=== PATIENT | female | born 1940 | race Caucasian/White ===

== ENCOUNTER 2018-01-10 15:09 | Emergency (ER) | payer MEDICARE, OTHER, SELFPAY ==
--- NOTE | 2018-01-10 15:13 | ED.HEATRA ---
HPI - Head Injury <ROXANA Vernon - Last Filed: 01/10/18 20:52> General Chief complaint: Head Injury Stated complaint: FELL AND HIT HER HEAD Time Seen by Provider: 01/10/18 15:12 History of Present Illness HPI Narrative: 77-year-old female currently taking Plavix and aspirin due to history of stroke. Here for complaint of up bumping her head during a ground level fall few hours prior to arrival. She states that she stumbled causing her to fall backwards hitting the back part of her head on the ground. She denies any loss of consciousness. She has no nausea or vomiting. She reports mild headache however she had mild headache prior to the fall with no changes after the fall. She denies any neck pain. She has full range of motion to the neck. She was able to ambulate into the emergency room. No other concerns or complaints. MD Complaint: head injury and fall Related Data Home Medications Medication Instructions Recorded Confirmed cyanocobalamin (vitamin B-12) 1,000 mcg IM EVERY 2 WEEK #0 08/13/10 01/10/18 omega 8-rmh-jus-fish oil [Fish Oil] 1,000 mg PO QDAY #0 02/20/13 01/10/18 atorvastatin [Lipitor] 20 mg PO HS #0 11/02/16 01/10/18 clopidogrel [Plavix] 75 mg PO QDAY #0 11/02/16 01/10/18 Co Q-10 1 cap PO DAILY 01/10/18 01/10/18 aspirin 81 mg PO DAILY 01/10/18 01/10/18 cholecalciferol (vitamin D3) 2,000 unit PO DAILY 01/10/18 01/10/18 [Vitamin D3] famotidine 20 mg PO BID 01/10/18 01/10/18 levothyroxine 1 tab PO MOWEFR 01/10/18 01/10/18 levothyroxine 1 tab PO SUTUTHSA 01/10/18 01/10/18 losartan 100 mg PO DAILY 01/10/18 01/10/18 multivitamin 1 tab PO DAILY 01/10/18 01/10/18 venlafaxine 1 cap PO DAILY 01/10/18 01/10/18 Previous Rx's Medication Instructions Recorded doxycycline monohydrate 100 mg PO BID #20 cap 01/17/17 Allergies Allergy/AdvReac Type Severity Reaction Status Date / Time Penicillins [PENICILLINS] Allergy Severe LESIONS IN Unverified 10/25/17 12:57 HER MOUTH ciprofloxacin [CIPROFLOXACIN] Allergy Intermediate tongue Unverified 10/25/17 12:57 inflammation wheat [WHEAT] Allergy Unknown ABD PAIN Unverified 10/25/17 12:57 Review of Systems <ROXANA Vernon - Last Filed: 01/10/18 20:52> Constitutional Denies chills, Denies fever(s), Denies lethargy and Denies weakness Eyes Denies change in vision, Denies eye discharge, Denies irritation and Denies loss of vision ENT Ears, Nose, Mouth, and Throat: Denies change in voice, Denies neck pain and Denies sore throat Cardiovascular Denies chest pain, Denies irregular heart rhythm, Denies lightheadedness, Denies palpitations, Denies dyspnea, Denies dyspnea on exertion and Denies orthopnea Respiratory Denies cough, Denies dyspnea, Denies dyspnea on exertion and Denies wheezing Gastrointestinal Gastrointestinal: Denies abdominal pain, Denies change in bowel habits, Denies diarrhea, Denies nausea and Denies vomiting Genitourinary Denies hematuria, Denies flank pain, Denies urinary incontinence and Denies urinary urgency Musculoskeletal Denies neck pain Integumentary/Breasts Denies pruritus, Denies erythema, Denies rash and Denies wounds Neurologic Denies confusion, Denies loss of vision and Denies weakness Comments: Hitting head during ground level fall Psychiatric Denies anxiety, Denies confusion, Denies depression, Denies homicidal ideation and Denies suicidal ideation Endocrine Denies palpitations Allergic/Immunologic Denies wheezing Exam <ROXANA Vernon - Last Filed: 01/10/18 20:52> Initial Vital Signs Initial Vital Signs: Vital Signs Temperature 97.4 F L 01/10/18 15:15 Pulse Rate 75 01/10/18 15:15 Respiratory Rate 16 01/10/18 15:15 Blood Pressure 138/85 H 01/10/18 15:15 Pulse Oximetry 96 01/10/18 15:15 Const General: cooperative and well developed Nutritional Appearance: well nourished Orientation: alert, awake, oriented x3 and not confused HENUT Head: normal to inspection, normocephalic, atraumatic, No Ramos's sign, No contusion, No hematoma, No laceration, No raccoon eyes, No scalp lesion and No scalp tenderness Ears: external ears normal Nose: external nose normal Mouth: oral mucosae normal, salivary ducts normal and moist mucous membranes Eyes Conjunctivae: conjunctivae normal Sclera: sclerae normal Pupils: PERRL EOM: EOM intact bilaterally Neck Neck: normal visual inspection, full ROM, trachea midline, No lymphadenopathy, No midline deformity and No JVD Lymphatic: No lymphedema Resp Effort & Inspection: normal respiratory effort, able to speak in complete sentences, no respiratory distress and no use of accessory muscles Auscultation: clear to auscultation bilaterally, no rales, no rhonchi and no wheezes Cardio Rate: regular rate Rhythm: regular rhythm Heart Sounds: no click, no gallops, no murmurs and no rubs Skin General: no rashes or lesions noted, No jaundice and No petechiae Neuro Cognition: normal cognition Speech: speech normal Motor: muscle tone normal throughout Sensory Exam: no sensory deficits noted <DO Phyllis Anne Last Filed: 01/13/18 08:37> Initial Vital Signs Initial Vital Signs: Vital Signs Temperature 97.4 F L 01/10/18 15:15 Pulse Rate 75 01/10/18 15:15 Respiratory Rate 16 01/10/18 15:15 Blood Pressure 138/85 H 01/10/18 15:15 Pulse Oximetry 96 01/10/18 15:15 Course <ROXANA Vernon - Last Filed: 01/10/18 20:52> Orders Ordered: ED Orders 01/10/18 15:28 CT head/brain wo con Stat Vital Signs - 8 hr 01/10/18 15:15 01/10/18 15:30 01/10/18 16:00 Temperature 97.4 F L Pulse Rate 75 72 70 Respiratory Rate 16 12 14 Blood Pressure 138/85 H Blood Pressure [Left Arm] 140/80 H 148/72 H Pulse Oximetry 96 99 98 <DO Phyllis Anne Last Filed: 01/13/18 08:37> Orders Ordered: ED Orders 01/10/18 15:28 CT head/brain wo con Stat Vital Signs - 8 hr 01/10/18 15:15 01/10/18 15:30 01/10/18 16:00 Temperature 97.4 F L Pulse Rate 75 72 70 Respiratory Rate 16 12 14 Blood Pressure 138/85 H Blood Pressure [Left Arm] 140/80 H 148/72 H Pulse Oximetry 96 99 98 [facility] [place] - Head Injury <Kishan GonzalezROXANA - Last Filed: 01/10/18 20:52> Imaging Data CT scan - head: Radiologist's impression: PROCEDURE: CT HEAD/BRAIN WO CON INDICATIONS: Ground level fall hitting back of head currently on Plavix TECHNIQUE: Noncontrast 4.5 mm thick angled axial sections acquired from the foramen magnum to the vertex, with coronal and sagittal reformats. For radiation dose reduction, the following was used: automated exposure control, adjustment of mA and/or kV according to patient size. COMPARISON: [facility], CT, HEAD WITHOUT CONTRAST, 11/04/2016, 22:08. FINDINGS: Image quality: Excellent. CSF spaces: Basal cisterns are patent. No extra-axial fluid collections. Ventricles are moderately prominent. There is corresponding parenchymal volume loss. Brain: No midline shift. No intracranial masses or hemorrhage. Vanegas-white matter interface is normal. Subtle areas of low attenuation within the periventricular and deep white matter of the supratentorial brain are present. Encephalomalacia involving the left basal ganglia is unchanged. Skull and face: Calvarium and visualized facial bones are intact, without suspicious lesions. Sinuses: Visualized sinuses and mastoids are clear. IMPRESSION: Stable head CT. No acute intracranial hemorrhage. Dictated by: Ricky Gomez M.D. on 01/10/2018 at 15:03 Approved by: Ricky Gomez M.D. on 01/10/2018 at 15:04 [facility] [place] Narrative Medical decision making narrative: Head CT was obtained was negative for any acute findings. No appreciable signs of trauma to the head on exam. Signs and symptoms presents as minor head injury. [id number] Tylenol as needed for any discomfort. Follow up with her primary care provider in the next couple days for re-evaluation. Head injury instructions are provided with warning signs return to the emergency room. If any worsening symptoms return to the emergency room. Discharge Plan Departure Patient Disposition: Home, Self-Care Clinical Impression: Closed head injury Discharge Date/Time: 01/10/18 16:37 Interventions: ED Discharge Assessment Last Done: 01/10/18 16:36 Instructions: DI for Closed Head Injury Activity Restrictions/Additional Instructions: Head CT was obtained was negative for any acute findings. No appreciable signs of trauma to the head on exam. Signs and symptoms presents as minor head injury. [id number] Tylenol as needed for any discomfort. Follow up with her primary care provider in the next couple days for re-evaluation. Head injury instructions are provided with warning signs return to the emergency room. If any worsening symptoms return to the emergency room. Prescriptions: No Action cyanocobalamin (vitamin B-12) 1,000 MCG/1 ML solution 1,000 mcg IM EVERY 2 WEEK Qty: 0 RF: 0 omega 3-kxd-cpt-fish oil [Fish Oil] 1,000 mg (120 mg-180 mg) Capsule 1,000 mg PO QDAY Qty: 0 RF: 0 atorvastatin [Lipitor] 20 MG tablet 20 mg PO HS Qty: 0 RF: 0 clopidogrel [Plavix] 75 MG tablet 75 mg PO QDAY Qty: 0 RF: 0 doxycycline monohydrate 100 MG capsule 100 mg PO BID Qty: 20 RF: 0 aspirin 81 mg Tablet,Delayed Release (Dr/Ec) 81 mg PO DAILY RF: 0 levothyroxine 88 mcg tablet 1 tab PO SUTUTHSA RF: 0 famotidine 20 mg tablet 20 mg PO BID RF: 0 Co Q-10 1 cap PO DAILY RF: 0 levothyroxine 100 mcg tablet 1 tab PO MOWEFR RF: 0 venlafaxine 37.5 mg capsule,extended release 24hr 1 cap PO DAILY RF: 0 losartan 100 mg tablet 100 mg PO DAILY RF: 0 cholecalciferol (vitamin D3) [Vitamin D3] 2,000 unit Tablet 2,000 unit PO DAILY RF: 0 multivitamin 1 tab PO DAILY RF: 0 Referrals: Conchita Felipe PA-C [Primary Care Provider] - <Dimitris Lackey DO - Last Filed: 01/13/18 08:37> Cosign ED Attending Cosignature Attestation: I was available for consultation during this patient's emergency department encounter
[2018-01-10 15:15] VITALS: BP 138/85; PULSE 75; RESP 16; TEMP 36.3; O2SAT 96; BMI 25.6
--- NOTE | 2018-01-10 15:28 | DI.CT.S_ITS ---
PROCEDURE: CT HEAD/BRAIN WO CON INDICATIONS: Ground level fall hitting back of head currently on Plavix TECHNIQUE: Noncontrast 4.5 mm thick angled axial sections acquired from the foramen magnum to the vertex, with coronal and sagittal reformats. For radiation dose reduction, the following was used: automated exposure control, adjustment of mA and/or kV according to patient size. COMPARISON: [facility], CT, HEAD WITHOUT CONTRAST, 11/04/2016, 22:08. FINDINGS: Image quality: Excellent. CSF spaces: Basal cisterns are patent. No extra-axial fluid collections. Ventricles are moderately prominent. There is corresponding parenchymal volume loss. Brain: No midline shift. No intracranial masses or hemorrhage. Vanegas-white matter interface is normal. Subtle areas of low attenuation within the periventricular and deep white matter of the supratentorial brain are present. Encephalomalacia involving the left basal ganglia is unchanged. Skull and face: Calvarium and visualized facial bones are intact, without suspicious lesions. Sinuses: Visualized sinuses and mastoids are clear. IMPRESSION: Stable head CT. No acute intracranial hemorrhage. Dictated by: Ricky Gomez M.D. on 01/10/2018 at 15:03 Approved by: Ricky Gomez M.D. on 01/10/2018 at 15:04
[2018-01-10 15:30] VITALS: BP 140/80; PULSE 72; RESP 12; O2SAT 99
[2018-01-10 16:00] VITALS: BP 148/72; PULSE 70; RESP 14; O2SAT 98
== END 2018-01-10 16:37 | disposition home or self-care (01) ==
PROVIDERS: Emergency Provider Nurse Practitioner Family; Family Provider Physician Assistant; PCP Physician Assistant
DX: S09.90XA Unspecified injury of head, initial encounter (principal); W19.XXXA Unspecified fall, initial encounter
CPT/HCPCS: 70450; 99282; 99284

== ENCOUNTER → 2018-01-31 09:16 | Outpatient (CLI) | payer MEDICARE, OTHER, SELFPAY ==
--- NOTE | 2018-01-31 | OV.WND_ITS ---
Progress Note Details Patient Name: Tenisha Mejia Patient Number: [id number] PatientPatientDate: 01/31/2018 Clinician: Lupe French Physician / Dedicated Regional Driver: Reji Rodney SUBJECTIVE Chief Complaint This information was obtained from the patient Allergies penicillin, Cipro HPI This information was obtained from the patient 01/31/18. Seen by Dr. Rodney. The patient's new to our clinic and presents with a non-healing right scalp wound that resulted following a brain biopsy. The overlying bone according to the patient's failed to heal and hardware was subsequently removed. The 's been caring for the wound the past few months and notes there's been some dried drainage accumulating over the wound surface which he's removed. He also stopped applying topical antibiotic a few weeks ago. The patient reports some mild intermittent pain at the site but no other acute issues today. 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 Past Medical History This information was obtained from the patient Patient has a medical history of: CVA Complaints and Symptoms This information was obtained from the patient Patient complains of: General Notes: I have reviewed and concur with the Review of Systems and Past Family Social History documents completed by the clinician, I have reviewed and concur with the Wound Assessment document completed by the clinician Hematologic/Lymphatic: Bleeding Tendency Integumentary (Hair/Skin/Nails): Open Sore Prior Wound History: Drainage, Pain Patient denies complaints or symptoms related to: Constitutional Symptoms (General Health): Chills, Fever Ear/Nose/Mouth/Throat: Hearing Loss / Aid Hematologic/Lymphatic: Bleeding / Clotting Disorders Neurological: Loss of Protective Sensation Respiratory: Shortness of Breath General Notes: Up to date per patient Medications atorvastatin 20 mg tablet oral tablet oral once daily losartan 50 mg tablet oral 1.5 1.5 tablet oral once daily Aspir-81 81 mg tablet,delayed release oral tablet,delayed release (DR/EC) oral Plavix 75 mg tablet oral tablet oral once daily Levoxyl 88 mcg tablet oral tablet oral cyanocobalamin (vit B-12) 1,000 mcg/mL injection solution injection solution injection Vitamin D3 1,000 unit tablet oral tablet oral once daily OBJECTIVE Constitutional BP elevated; Low grade fever; Alert and in no distress. Well developed. Alert. Clean appearing.. Height/Length: 62 in (157.48 cm), Weight: 145 lbs (65.91 kgs), BMI: 26.5, Temperature: 99 ?F (37.22 ?C), Pulse: 74 bpm, Respiratory Rate: 16 breaths/min, Blood Pressure: 158/79 mmHg, Pulse Oximetry: 95 %. Ears, Nose, Mouth, and Throat: No clinically significant hearing loss on informal examination. Respiratory: No respiratory distress. Even respirations and without use of accessory muscles.. Integumentary (Hair, Skin) Mild periwound erythema without warmth. Refer to appropriate clinician wound documentation for this visit; right scalp wound extends to subcut with base covered with red, friable hypergranulation; approx 3x10mm dry, hard bone exposed. Wound #1 Right Head is a chronic Partial Thickness Atypical and has received a status of Not Healed. Initial wound encounter measurements are 0.6cm length x 0.6cm width x 0.1cm depth, with an area of 0.36 sq cm and a volume of 0.036 cubic cm. Bone is exposed. No tunneling has been noted. No sinus tract has been noted. No undermining has been noted. There is a moderate amount of sero-sanguineous drainage noted which has no odor. The patient reports a wound pain of level 0/10. The wound margin is attached. Wound bed has No epithelialization, No eschar, Yes slough, No granulation. The periwound skin texture is normal. The periwound skin moisture is normal. The periwound skin color is normal. The temperature of the periwound skin is WNL. Periwound skin does not exhibit signs or symptoms of infection. Local Pulse is N/A. Neurological: Cranial nerves grossly intact with symmetric function normal by informal observation.. ASSESSMENT Active Problems ICD-10 (Encounter Diagnosis) S01.00XD - Unspecified open wound of scalp, subsequent encounter (Encounter Diagnosis) L08.9 - Local infection of the skin and subcutaneous tissue, unspecified PROCEDURES Wound #1 Wound #1 (Atypical) is located on the right head. A skin/subcutaneous tissue level surgical debridement with a total area debrided of 0.36 sq cm was performed by Reji Rodney MD. Subcutaneous was removed along with devitalized tissue: exudate. The following instrument (s) were used: forceps. Pain control was achieved using EMLA lidocaine/ prilocaine 2.5%/2.5%. A time out was conducted prior to the start of the procedure. A minimal amount of bleeding was controlled with n/a. The procedure was tolerated well with a pain level of 0 throughout and a pain level of 0 following the procedure. Post Debridement Measurements: 0.6cm length x 0.6cm width x 0.2cm depth; with an area of 0.36 sq cm and a volume of 0.072 cubic cm; Additional Information Muscle fascia or bone removed and sent to pathology?: No PLAN Wound Orders: Wound #1 Right Head Anesthetic Topical Xylocaine to wound bed. Cleanser Cleanse Wound: - Normal Saline in clinic. May use distilled water at home. Dressings Primary dressing: - Duoderm Change Dressing: - Every two days Additional Orders: Follow-Up Appointments Return Appointment: - - One week. Other information: If you develop fever, chills, increased pain, drainage, redness or swelling please call our office. If after hours, respond to the ER. Should you experience any significant changes in your wound(s) or have any questions regarding your home care instructions please contact the wound center @ [phone]. If after hours, contact your primary care physician or go to the hospital emergency room. Scribing Attestation I attest, as the nurse, that I scribed these orders for the physician. Laboratory: Culture Wound General Notes: We will call with any positive wound cultures requiring oral antibiotics. I've reviewed the clinician's documentation and agree with the evaluation and plan as written. Also, I've cultured the scalp wound which appears to have a superficial infection but will defer treating with antibiotics until the culture results are available. I've also discussed the exposed bone and how this complicates wound healing considerably. I'm going to refer the patient back to her surgeon for review of this issue noting it's very unlikely the wound will heal with bone exposed as it is today. Electronic Signature(s) Signed By: Date: Reji Rodney MD 02/01/2018 07:19:13 Entered By: Reji Rodney on 01/31/2018 13:36:54
== END ==
PROVIDERS: Family Provider Physician Assistant; PCP Physician Assistant; Visit Provider Internal Medicine
DX: S01.00XA Unspecified open wound of scalp, initial encounter (principal)
CPT/HCPCS: 11042; 87070; 87075; 87077; 87147; 87186; 87205; 99213

== ENCOUNTER → 2018-02-07 09:08 | Outpatient (CLI) | payer MEDICARE, OTHER, SELFPAY | PROVIDERS: Family Provider Physician Assistant; PCP Physician Assistant; Visit Provider Internal Medicine | DX: S01.00XD Unspecified open wound of scalp, subsequent encounter (principal); L08.9 Local infection of the skin and subcutaneous tissue, unspecified | CPT/HCPCS: 99212 ==

== ENCOUNTER → 2018-02-21 13:48 | Outpatient (CLI) | payer MEDICARE, OTHER, SELFPAY ==
--- NOTE | 2018-02-21 | OV.WND_ITS ---
Progress Note Details Patient Name: Tenisha Mejia Patient Number: [id number] PatientPatientDate: 02/21/2018 Clinician: Lupe French Physician / Windows Laptop Technician: Reji Rodney SUBJECTIVE Chief Complaint This information was obtained from the patient Non-healing scalp wound Allergies penicillin, Cipro HPI This information was obtained from the patient 02/21/18. Seen by Dr. Rodney. The patient does not report significant drainage associated with the scalp wound since her last visit. She also has an appointment on 03/03 with her surgeon to review the exposed bone which is inhibiting closure of the wound. 02/07/18. Seen by Dr. Rodney. The patient's wound culture from the chronic, non- healing scalp wound grew munoz-sensitive Staph capitis and she's not yet connected with her surgeon to discuss the exposed bone that was described in my previous note. She's not currently on antibiotics and does not report pain or increasing drainage associated with the wound. 01/31/18. Seen by Dr. Rodney. The patient's new to our clinic and presents with a non-healing right scalp wound that resulted following a brain biopsy. The overlying bone according to the patient's failed to heal and hardware was subsequently removed. The 's been caring for the wound the past few months and notes there's been some dried drainage accumulating over the wound surface which he's removed. He also stopped applying topical antibiotic a few weeks ago. The patient reports some mild intermittent pain at the site but no other acute issues today. Past Medical History This information was obtained from the patient Patient has a medical history of: CVA Complaints and Symptoms This information was obtained from the patient Patient complains of: General Notes: I have reviewed and concur with the Review of Systems and Past Family Social History documents completed by the clinician, I have reviewed and concur with the Wound Assessment document completed by the clinician Hematologic/Lymphatic: Bleeding Tendency Integumentary (Hair/Skin/Nails): Open Sore Prior Wound History: Drainage, Pain Patient denies complaints or symptoms related to: Constitutional Symptoms (General Health): Chills, Fever Ear/Nose/Mouth/Throat: Hearing Loss / Aid Hematologic/Lymphatic: Bleeding / Clotting Disorders Neurological: Loss of Protective Sensation Respiratory: Shortness of Breath OBJECTIVE Constitutional BP normal; Low grade fever; Alert and in no distress. Well developed. Alert. Clean appearing.. Height/Length: 62 in (157.48 cm), Weight: 149 lbs (67.73 kgs), BMI: 27.2, Temperature: 99.3 ?F (37.39 ?C), Pulse: 83 bpm, Respiratory Rate: 18 breaths/min, Blood Pressure: 131/77 mmHg, Pulse Oximetry: 95 %. Ears, Nose, Mouth, and Throat: No clinically significant hearing loss on informal examination. Integumentary (Hair, Skin) No periwound erythema, warmth, or significant drainage. No periwound rashes appreciated or noted otherwise.. Refer to appropriate clinician wound documentation for this visit; wound essentially closed except for area of exposed bone. Wound #1 Right Head is a chronic Full Thickness Atypical and has received a status of Not Healed. Subsequent wound encounter measurements are 0.5cm length x 0.3cm width x 0.1cm depth, with an area of 0.15 sq cm and a volume of 0.015 cubic cm. Bone is exposed. No tunneling has been noted. No sinus tract has been noted. No undermining has been noted. There is a small amount of serous drainage noted which has no odor. The patient reports a wound pain of level 0/10. The wound margin is attached. Wound bed has Yes epithelialization, No eschar, No slough, No granulation. The periwound skin texture is normal. The periwound skin moisture is normal. The periwound skin color is normal. The temperature of the periwound skin is WNL. Periwound skin does not exhibit signs or symptoms of infection. Local Pulse is N/A. ASSESSMENT Active Problems ICD-10 (Encounter Diagnosis) S01.00XD - Unspecified open wound of scalp, subsequent encounter PLAN Wound Orders: Wound #1 Right Head Anesthetic Topical Xylocaine to wound bed. Cleanser Cleanse Wound: - Normal Saline in clinic. May use distilled water at home. Topical Treatments Antibiotic/Antimicrobial Ointment/Cream. - Triple antibiotic ointment. Dressings Cover and secure with: - Thin duoderm. Change Dressing: - Every two days. Follow-Up Appointments Other information: If you develop fever, chills, increased pain, drainage, redness or swelling please call our office. If after hours, respond to the ER. Should you experience any significant changes in your wound(s) or have any questions regarding your home care instructions please contact the wound center @ [phone]. If after hours, contact your primary care physician or go to the hospital emergency room. Discharge from Outpatient Services. - No need to follow up at this time. Appointment scheduled at [facility] with plastics, the week of March 05-. Scribing Attestation I attest, as the nurse, that I scribed these orders for the physician. I've reviewed the clinician's documentation and agree with the evaluation and plan as written. Electronic Signature(s) Signed By: Date: Reji Rodney MD 02/22/2018 09:16:50 Entered By: Reji Rodney on 02/21/2018 10:17:35
== END ==
PROVIDERS: Family Provider Physician Assistant; PCP Physician Assistant; Visit Provider Internal Medicine
DX: S01.00XA Unspecified open wound of scalp, initial encounter (principal)
CPT/HCPCS: 99212

== ENCOUNTER → 2018-03-01 11:20 | Outpatient (REF) | payer MEDICARE, OTHER, SELFPAY ==
[2018-03-01 11:41] LABS: INR 1.1 (0.9-1.3); Prothrombin Time 12.5 SECONDS (10.1-12.7)
[2018-03-01 11:42] LABS: Add Manual Diff / Slide Review NO; Basophils Percent Auto 1.3 % (0-2); Eosinophils Percent Auto 3.4 % (2-4); Hemoglobin 13.1 g/dL (12.0-16.0); Lymphocytes Percent Auto 17.9 % (25-40); Mean Corpuscular HGB Conc 33.5 % (30-36); Mean Corpuscular Hemoglobin 28.3 PG (26-34); Mean Corpuscular Volume 84.3 fL (80-100); Monocytes Percent Auto 7.4 % (3-14); Neutrophils Absolute Auto 4800 /uL (3000-5900); Platelet Count 607 X10^3/uL (150-400); Red Blood Cell Count 4.62 X10^6/uL (4.0-5.2); Red Cell Distribution Width 15.9 % (11.6-14.8); White Blood Cell Count 6.9 X10^3/uL (4.5-11.0)
[2018-03-01 11:44] LABS: PTT Partial Thromboplastin Tim 26 SECONDS (26.4-36.2)
[2018-03-01 12:00] LABS: Alanine Aminotransferase 40 IU/L (9-52); Albumin Globulin Ratio 1.2 (1.0-2.8); Alkaline Phosphatase 139 U/L (38-126); Aspartate Aminotransferase 39 IU/L (14-36); BUN Creatinine Ratio 24.3 (6-22); Bilirubin Total 0.7 mg/dL (0.2-1.3); Blood Urea Nitrogen 17 mg/dL (7-17); Calcium 9.3 mg/dL (8.4-10.2); Carbon Dioxide 28 mmol/L (22-32); Chloride 102 mmol/L (98-107); Estimated Glomerular Filt Rate > 60.0 mL/min (>60); Globulin 3.4 g/dL (1.7-4.1); Glucose 91 mg/dL (80-110); HEMOLYSIS < 15 (0-50); Potassium 4.4 mmol/L (3.4-5.1); Sodium 142 mmol/L (137-145); Total Protein 7.4 g/dL (6.3-8.2)
[2018-03-01 12:05] LABS: Hemoglobin A1C% w Est Avg Glu 5.8 % (4.0-6.0)
== END ==
LOC: LAB 11:20
PROVIDERS: Family Provider Physician Assistant; PCP Physician Assistant; Visit Provider Physician Assistant
DX: T81.89XA Other complications of procedures, not elsewhere classified, initial encounter (principal); Z01.818 Encounter for other preprocedural examination
CPT/HCPCS: 80053; 83036; 85025; 85610; 85730; 87070; 87075; 87147; 87205; 87797

== ENCOUNTER → 2018-03-06 14:52 | Outpatient (CLI) | payer MEDICARE, OTHER, SELFPAY | PROVIDERS: Family Provider Physician Assistant; PCP Physician Assistant; Visit Provider Physician Assistant | DX: M85.831 Other specified disorders of bone density and structure, right forearm (principal); Z78.0 Asymptomatic menopausal state; E07.9 Disorder of thyroid, unspecified; Z85.3 Personal history of malignant neoplasm of breast; Z82.62 Family history of osteoporosis; Z87.891 Personal history of nicotine dependence | CPT/HCPCS: 77080 ==

== ENCOUNTER → 2018-03-23 15:43 | Outpatient (CLI) | payer MEDICARE, OTHER, SELFPAY ==
[2018-03-23 16:54] LABS: Bacteria Urine None Seen
[2018-03-23 18:12] LABS: Appearance Urine UA CLEAR; Bilirubin Urine UA 1+ (NEGATIVE); Color Urine UA ORANGE; Glucose Urine UA 1+ g/dL (Normal); Ketones Urine UA TRACE (NEGATIVE); Leukocyte Esterase Urine UA TRACE (NEGATIVE); Nitrite Urine UA POSITIVE (Negative); Occult Blood Urine UA 3+ (Negative); Protein Urine UA 2+ (Negative); Urobilinogen Urine UA >=8.0 E.U./dL (0.2)
[2018-03-23 18:13] LABS: RBC Urine 5-10/HPF (0-5/HPF); WBC Urine 5-10/HPF (0-5/HPF)
[2018-03-23 18:14] LABS: Culture Indicated Urine Specimen Cultured
[2018-03-23 18:24] LABS: Ictotest Urine Positive (Negative)
== END ==
PROVIDERS: Family Provider Physician Assistant; PCP Physician Assistant; Visit Provider Physician Assistant
DX: N39.0 Urinary tract infection, site not specified (principal)
CPT/HCPCS: 81001; 87086

== ENCOUNTER → 2018-03-26 11:12 | Outpatient (CLI) | payer MEDICARE, OTHER, SELFPAY ==
--- NOTE | 2018-03-26 | OV.WND_ITS ---
Progress Note Details Patient Name: Tenisha Mejia Patient Number: [id number] PatientPatientDate: 03/26/2018 Clinician: Lupe French Clinician Cosigner: Alyssa Weston Physician / Disaster Or Damage Control Specialist: Reji Rodney SUBJECTIVE Chief Complaint This information was obtained from the patient Non-healing scalp wound Allergies penicillin, Cipro HPI This information was obtained from the patient 03/26/18. Seen by Dr. Rodney. The patient returns to clinic after being seen by her surgeon who removed hardware and reconstructed the overlying scalp to close the previously documented and chronically non-healing scalp surgical wound. Her procedure was 2 weeks ago and reportedly the surgeon's given the approval for sutures to be removed at our clinic. The patient does not report pain at the site nor significant drainage and only applied topical antibiotic for a few days due to accumulation of ointment along the sutures and her hair. 02/21/18. Seen by Dr. Rodney. The patient does not report significant drainage associated with the scalp wound since her last visit. She also has an appointment on 03/03 with her surgeon to review the exposed bone which is inhibiting closure of the wound. 02/07/18. Seen by Dr. Rodney. The patient's wound culture from the chronic, non- healing scalp wound grew munoz-sensitive Staph capitis and she's not yet connected with her surgeon to discuss the exposed bone that was described in my previous note. She's not currently on antibiotics and does not report pain or increasing drainage associated with the wound. 01/31/18. Seen by Dr. Rodney. The patient's new to our clinic and presents with a non-healing right scalp wound that resulted following a brain biopsy. The overlying bone according to the patient's failed to heal and hardware was subsequently removed. The 's been caring for the wound the past few months and notes there's been some dried drainage accumulating over the wound surface which he's removed. He also stopped applying topical antibiotic a few weeks ago. The patient reports some mild intermittent pain at the site but no other acute issues today. Past Medical History This information was obtained from the patient Patient has a medical history of: CVA Complaints and Symptoms This information was obtained from the patient Patient complains of: General Notes: I have reviewed and concur with the Review of Systems and Past Family Social History documents completed by the clinician, I have reviewed and concur with the Wound Assessment document completed by the clinician Hematologic/Lymphatic: Bleeding Tendency Integumentary (Hair/Skin/Nails): Open Sore Prior Wound History: Drainage, Pain Patient denies complaints or symptoms related to: Constitutional Symptoms (General Health): Chills, Fever Ear/Nose/Mouth/Throat: Hearing Loss / Aid Hematologic/Lymphatic: Bleeding / Clotting Disorders Neurological: Loss of Protective Sensation Respiratory: Shortness of Breath OBJECTIVE Constitutional Vital signs reviewed and noted. Well developed. Alert. Clean appearing.. Height/ Length: 62 in (157.48 cm), Weight: 147 lbs (66.82 kgs), BMI: 26.9, Temperature: 98.3 ?F ( 36.83 ?C), Pulse: 80 bpm, Respiratory Rate: 18 breaths/min, Blood Pressure: 133/82 mmHg, Pulse Oximetry: 94 %. Ears, Nose, Mouth, and Throat: No clinically significant hearing loss on informal examination. Respiratory: No respiratory distress. Even respirations and without use of accessory muscles.. Neurological: Cranial nerves grossly intact with symmetric function normal by informal observation.. Integumentary (Hair, Skin) Wound #1 Right Head is a chronic Full Thickness Atypical and has received a status of Not Healed. Subsequent wound encounter measurements are 0cm length x 0cm width with no measurable depth, with an area of 0 sq cm . Bone is exposed. No tunneling has been noted. No sinus tract has been noted. No undermining has been noted. There was no drainage noted. The patient reports a wound pain of level 0/10. The wound margin is attached. Wound bed has Yes epithelialization, No eschar, No slough, No granulation. The periwound skin texture is normal. The periwound skin moisture is normal. The periwound skin color is normal. The temperature of the periwound skin is WNL. Periwound skin does not exhibit signs or symptoms of infection. Local Pulse is N/A. General Notes: Surgical incision. Sutures in place. ASSESSMENT Active Problems ICD-10 (Encounter Diagnosis) S01.00XD - Unspecified open wound of scalp, subsequent encounter PLAN Wound Orders: Wound #1 Right Head Anesthetic Topical Xylocaine to wound bed. Cleanser Cleanse Wound: May Shower. Topical Treatments Antibiotic/Antimicrobial Ointment/Cream. - [place] gel to incision line Follow-Up Appointments Return Appointment: - - Other information: If you develop fever, chills, increased pain, drainage, redness or swelling please call our office. If after hours, respond to the ER. Should you experience any significant changes in your wound(s) or have any questions regarding your home care instructions please contact the wound center @ [phone]. If after hours, contact your primary care physician or go to the hospital emergency room. Scribing Attestation I attest, as the nurse, that I scribed these orders for the physician. I've reviewed the clinician's documentation and agree with the evaluation and plan as written. Also, we'll attempt to hydrate the adherent drainage and debris overlying the sutures in order to facilitate removal at her next visit this week. Electronic Signature(s) Signed By: Date: Reji Rodney MD 03/27/2018 09:56:44 Entered By: Reji Rodney on 03/27/2018 09:10:57
== END ==
PROVIDERS: Family Provider Physician Assistant; PCP Physician Assistant; Visit Provider Internal Medicine
DX: T81.89XD Other complications of procedures, not elsewhere classified, subsequent encounter (principal); S01.00XD Unspecified open wound of scalp, subsequent encounter
CPT/HCPCS: 99212

== ENCOUNTER → 2018-03-29 08:59 | Outpatient (CLI) | payer MEDICARE, OTHER, SELFPAY ==
--- NOTE | 2018-03-29 | OV.WND_ITS ---
Progress Note Details Patient Name: Tenisha Mejia Patient Number: [id number] PatientPatientDate: 03/29/2018 Clinician: Anupama Grewal Clinician Cosigner: Alyssa Weston Physician / Knotting Machine Operator: Reji Rodney SUBJECTIVE Chief Complaint This information was obtained from the patient Non-healing scalp wound Allergies penicillin, Cipro HPI This information was obtained from the patient 03/29/18. Seen by Dr. Rodney. The patient does not report significant drainage associated with the scalp surgical wound since her last visit and her 's been applying topical hydrogel as recommended to help soften the overlying dried drainage in order to facilitate removal of the sutures. 03/26/18. Seen by Dr. Rodney. The patient returns to clinic after being seen by her surgeon who removed hardware and reconstructed the overlying scalp to close the previously documented and chronically non-healing scalp surgical wound. Her procedure was 2 weeks ago and reportedly the surgeon's given the approval for sutures to be removed at our clinic. The patient does not report pain at the site nor significant drainage and only applied topical antibiotic for a few days due to accumulation of ointment along the sutures and her hair. 02/21/18. Seen by Dr. Rodney. The patient does not report significant drainage associated with the scalp wound since her last visit. She also has an appointment on 03/03 with her surgeon to review the exposed bone which is inhibiting closure of the wound. 02/07/18. Seen by Dr. Rodney. The patient's wound culture from the chronic, non- healing scalp wound grew munoz-sensitive Staph capitis and she's not yet connected with her surgeon to discuss the exposed bone that was described in my previous note. She's not currently on antibiotics and does not report pain or increasing drainage associated with the wound. 01/31/18. Seen by Dr. Rodney. The patient's new to our clinic and presents with a non-healing right scalp wound that resulted following a brain biopsy. The overlying bone according to the patient's failed to heal and hardware was subsequently removed. The 's been caring for the wound the past few months and notes there's been some dried drainage accumulating over the wound surface which he's removed. He also stopped applying topical antibiotic a few weeks ago. The patient reports some mild intermittent pain at the site but no other acute issues today. Past Medical History This information was obtained from the patient Patient has a medical history of: CVA Complaints and Symptoms This information was obtained from the patient Patient complains of: General Notes: I have reviewed and concur with the Review of Systems and Past Family Social History documents completed by the clinician, I have reviewed and concur with the Wound Assessment document completed by the clinician Hematologic/Lymphatic: Bleeding Tendency Integumentary (Hair/Skin/Nails): Open Sore Prior Wound History: Drainage, Pain Patient denies complaints or symptoms related to: Constitutional Symptoms (General Health): Chills, Fever Ear/Nose/Mouth/Throat: Hearing Loss / Aid Hematologic/Lymphatic: Bleeding / Clotting Disorders Neurological: Loss of Protective Sensation Respiratory: Shortness of Breath OBJECTIVE Constitutional Vital signs reviewed and noted. Well developed. Alert. Clean appearing.. Height/ Length: 62 in (157.48 cm), Weight: 147 lbs (66.82 kgs), BMI: 26.9, Temperature: 98.9 ?F ( 37.17 ?C), Pulse: 78 bpm, Respiratory Rate: 18 breaths/min, Blood Pressure: 130/74 mmHg, Pulse Oximetry: 95 %. Ears, Nose, Mouth, and Throat: No clinically significant hearing loss on informal examination. Respiratory: No respiratory distress. Even respirations and without use of accessory muscles.. Integumentary (Hair, Skin) No periwound erythema, warmth, or significant drainage. No periwound rashes appreciated or noted otherwise.. Refer to appropriate clinician wound documentation for this visit; scalp wound edges well apposed; sutures removed along 2 out of 3 wound margins; remaining sutures unable to be removed due to heavy, dried drainage. Wound #1 Right Head is a chronic Full Thickness Atypical and has received a status of Not Healed. Subsequent wound encounter measurements are 0cm length x 0cm width with no measurable depth, with an area of 0 sq cm . Bone is exposed. No tunneling has been noted. No sinus tract has been noted. No undermining has been noted. There was no drainage noted. The patient reports a wound pain of level 0/10. The wound margin is attached. Wound bed has Yes epithelialization, No eschar, No slough, No granulation. The periwound skin texture is normal. The periwound skin moisture is normal. The periwound skin color is normal. The temperature of the periwound skin is WNL. Periwound skin does not exhibit signs or symptoms of infection. Local Pulse is N/A. General Notes: Surgical incision, sutures in place with dry drainage. Dr. Rodney will remove the sutures today. Neurological: Cranial nerves grossly intact with symmetric function normal by informal observation.. ASSESSMENT Active Problems ICD-10 (Encounter Diagnosis) S01.00XD - Unspecified open wound of scalp, subsequent encounter PROCEDURES Wound #1 Wound #1 (Atypical) is located on the right head. A Removing Sutures procedure was performed by Reji Rodney MD. General Notes: Dr. Rodney removed sutures. PLAN Wound Orders: Wound #1 Right Head Anesthetic Topical Xylocaine to wound bed. Cleanser Cleanse Wound: May Shower. Topical Treatments Antibiotic/Antimicrobial Ointment/Cream. - [place] gel to incision line Follow-Up Appointments Return Appointment: - - This Monday03/30/18 for continued suture removal. Other information: If you develop fever, chills, increased pain, drainage, redness or swelling please call our office. If after hours, respond to the ER. Should you experience any significant changes in your wound(s) or have any questions regarding your home care instructions please contact the wound center @ [phone]. If after hours, contact your primary care physician or go to the hospital emergency room. Scribing Attestation I attest, as the nurse, that I scribed these orders for the physician. I've reviewed the clinician's documentation and agree with the evaluation and plan as written. The patient will soak the remaining sutures in hydrogel and we'll attempt to remove them again tomorrow. Electronic Signature(s) Signed By: Date: Reji Rodney MD 03/30/2018 06:00:06 03/29/2018 10:50:26 AM Version Signed Date: By: Anupama Grewal 03/29/2018 12:59:18 PM Entered By: Reji Rodney on 03/30/2018 05:57:23
== END ==
PROVIDERS: Family Provider Physician Assistant; PCP Physician Assistant; Visit Provider Internal Medicine
DX: S01.00XD Unspecified open wound of scalp, subsequent encounter (principal); Z48.02 Encounter for removal of sutures
CPT/HCPCS: 99211

== ENCOUNTER → 2018-03-30 11:27 | Outpatient (CLI) | payer MEDICARE, OTHER, SELFPAY ==
--- NOTE | 2018-03-30 | OV.WND_ITS ---
Progress Note Details Patient Name: Tenisha Mejia Patient Number: [id number] PatientPatientDate: 03/30/2018 Clinician: Lupe French Clinician Cosigner: Anupama Grewal Physician / Law Professor: Reji Rodney SUBJECTIVE Chief Complaint This information was obtained from the patient Non-healing scalp wound Allergies penicillin, Cipro HPI This information was obtained from the patient 03/30/18. Seen by Dr. Rodney. The patient returns to clinic for removal of the remainder of her scalp sutures that were not able to be removed yesterday due to adherence of overlying, heavy dried drainage. She's been applying hydrogel as recommended so help facilitate removal of the sutures. 03/29/18. Seen by Dr. Rodney. The patient does not report significant drainage associated with the scalp surgical wound since her last visit and her 's been applying topical hydrogel as recommended to help soften the overlying dried drainage in order to facilitate removal of the sutures. 03/26/18. Seen by Dr. Rodney. The patient returns to clinic after being seen by her surgeon who removed hardware and reconstructed the overlying scalp to close the previously documented and chronically non-healing scalp surgical wound. Her procedure was 2 weeks ago and reportedly the surgeon's given the approval for sutures to be removed at our clinic. The patient does not report pain at the site nor significant drainage and only applied topical antibiotic for a few days due to accumulation of ointment along the sutures and her hair. 02/21/18. Seen by Dr. Rodney. The patient does not report significant drainage associated with the scalp wound since her last visit. She also has an appointment on 03/03 with her surgeon to review the exposed bone which is inhibiting closure of the wound. 02/07/18. Seen by Dr. Rodney. The patient's wound culture from the chronic, non- healing scalp wound grew munoz-sensitive Staph capitis and she's not yet connected with her surgeon to discuss the exposed bone that was described in my previous note. She's not currently on antibiotics and does not report pain or increasing drainage associated with the wound. 01/31/18. Seen by Dr. Rodney. The patient's new to our clinic and presents with a non-healing right scalp wound that resulted following a brain biopsy. The overlying bone according to the patient's failed to heal and hardware was subsequently removed. The 's been caring for the wound the past few months and notes there's been some dried drainage accumulating over the wound surface which he's removed. He also stopped applying topical antibiotic a few weeks ago. The patient reports some mild intermittent pain at the site but no other acute issues today. Past Medical History This information was obtained from the patient Patient has a medical history of: CVA Complaints and Symptoms This information was obtained from the patient Patient complains of: General Notes: I have reviewed and concur with the Review of Systems and Past Family Social History documents completed by the clinician, I have reviewed and concur with the Wound Assessment document completed by the clinician Hematologic/Lymphatic: Bleeding Tendency Integumentary (Hair/Skin/Nails): Open Sore Prior Wound History: Drainage, Pain Patient denies complaints or symptoms related to: Constitutional Symptoms (General Health): Chills, Fever Ear/Nose/Mouth/Throat: Hearing Loss / Aid Hematologic/Lymphatic: Bleeding / Clotting Disorders Neurological: Loss of Protective Sensation Respiratory: Shortness of Breath OBJECTIVE Constitutional Vital signs reviewed and noted. Well developed. Alert. Clean appearing.. Height/ Length: 62 in (157.48 cm), Weight: 147 lbs (66.82 kgs), BMI: 26.9, Temperature: 97.9 ?F ( 36.61 ?C), Pulse: 76 bpm, Respiratory Rate: 18 breaths/min, Blood Pressure: 123/80 mmHg, Pulse Oximetry: 97 %. Respiratory: No respiratory distress. Even respirations and without use of accessory muscles.. Integumentary (Hair, Skin) Refer to appropriate clinician wound documentation for this visit. Remaining sutures removed from scalp wound with all wound edges well apposed and healed. Wound #1 Right Head is a chronic Full Thickness Atypical and has received an outcome of Healed - no new wound(s). Subsequent wound encounter measurements are 0cm length x 0cm width with no measurable depth, with an area of 0 sq cm . Bone is exposed. No tunneling has been noted. No sinus tract has been noted. No undermining has been noted. There was no drainage noted. The patient reports a wound pain of level 0/10. The wound margin is attached. Wound bed has Yes epithelialization, No eschar, No slough, No granulation. The periwound skin texture is normal. The periwound skin moisture is normal. The periwound skin color is normal. The temperature of the periwound skin is WNL. Periwound skin does not exhibit signs or symptoms of infection. Local Pulse is N/A. Neurological: Cranial nerves grossly intact with symmetric function normal by informal observation.. ASSESSMENT Active Problems ICD-10 (Encounter Diagnosis) S01.00XD - Unspecified open wound of scalp, subsequent encounter PROCEDURES Wound #1 Wound #1 (Atypical) is located on the right head. A Removing Sutures procedure was performed by Reji Rodney MD. PLAN Wound Orders: Wound #1 Right Head Cleanser Cleanse Wound: - Normal saline in clinic. may use distilled water at home. May Shower. Additional Orders: Follow-Up Appointments Other information: If you develop fever, chills, increased pain, drainage, redness or swelling please call our office. If after hours, respond to the ER. Should you experience any significant changes in your wound(s) or have any questions regarding your home care instructions please contact the wound center @ [phone]. If after hours, contact your primary care physician or go to the hospital emergency room. Discharge from Outpatient Services. Scribing Attestation I attest, as the nurse, that I scribed these orders for the physician. I've reviewed the clinician's documentation and agree with the evaluation and plan as written. Electronic Signature(s) Signed By: Date: Reji Rodney MD 04/01/2018 13:56:08 Entered By: Reji Rodney on 04/01/2018 13:42:26
== END ==
PROVIDERS: Family Provider Physician Assistant; PCP Physician Assistant; Visit Provider Internal Medicine
DX: Z48.02 Encounter for removal of sutures (principal); Z48.817 Encounter for surgical aftercare following surgery on the skin and subcutaneous tissue
CPT/HCPCS: 99212

== ENCOUNTER → 2018-04-18 14:33 | Outpatient (CLI) | payer MEDICARE, OTHER, SELFPAY | PROVIDERS: Family Provider Physician Assistant; PCP Physician Assistant; Visit Provider Internal Medicine | DX: S01.00XD Unspecified open wound of scalp, subsequent encounter (principal); L08.9 Local infection of the skin and subcutaneous tissue, unspecified; L92.9 Granulomatous disorder of the skin and subcutaneous tissue, unspecified | CPT/HCPCS: 17250; 87070; 87075; 87077; 87147; 87186; 87205 ==

== ENCOUNTER → 2018-04-27 13:58 | Outpatient (CLI) | payer MEDICARE, OTHER, SELFPAY ==
--- NOTE | 2018-04-27 | OV.WND_ITS ---
Progress Note Details Patient Name: Tenisha Mejia Patient Number: [id number] PatientPatientDate: 04/27/2018 Clinician: Lupe French Clinician Cosigner: Alyssa Weston Physician / Folding Machine Feeder: Reji Rodney SUBJECTIVE Chief Complaint This information was obtained from the patient Non-healing scalp wound Allergies penicillin, Cipro HPI This information was obtained from the patient 04/27/18. Seen by Dr. Rodney. The patient does not report significant drainage associated with the scalp surgical wound since her last visit and she continues on doxycycline for the recent coag negative Staph cultured from the wound. She does not report adverse side effects, fevers, or feeling unwell in general. 04/18/18. Seen by Dr. Rodney. The patient returns to clinic with recurrence of her scalp wound that's been complicated by wound dehisence and infection following a brain biopsy earlier this year. She reports increased drainage and bleeding first notice last week and has not been on antibiotics for this new recurrence yet although is taking azithromycin for an upper respiratory tract infection. 03/30/18. Seen by Dr. Rodney. The patient returns to clinic for removal of the remainder of her scalp sutures that were not able to be removed yesterday due to adherence of overlying, heavy dried drainage. She's been applying hydrogel as recommended so help facilitate removal of the sutures. 03/29/18. Seen by Dr. Rodney. The patient does not report significant drainage associated with the scalp surgical wound since her last visit and her 's been applying topical hydrogel as recommended to help soften the overlying dried drainage in order to facilitate removal of the sutures. 03/26/18. Seen by Dr. Rodney. The patient returns to clinic after being seen by her surgeon who removed hardware and reconstructed the overlying scalp to close the previously documented and chronically non-healing scalp surgical wound. Her procedure was 2 weeks ago and reportedly the surgeon's given the approval for sutures to be removed at our clinic. The patient does not report pain at the site nor significant drainage and only applied topical antibiotic for a few days due to accumulation of ointment along the sutures and her hair. 02/21/18. Seen by Dr. Rodney. The patient does not report significant drainage associated with the scalp wound since her last visit. She also has an appointment on 03/03 with her surgeon to review the exposed bone which is inhibiting closure of the wound. 02/07/18. Seen by Dr. Rodney. The patient's wound culture from the chronic, non- healing scalp wound grew munoz-sensitive Staph capitis and she's not yet connected with her surgeon to discuss the exposed bone that was described in my previous note. She's not currently on antibiotics and does not report pain or increasing drainage associated with the wound. 01/31/18. Seen by Dr. Rodney. The patient's new to our clinic and presents with a non-healing right scalp wound that resulted following a brain biopsy. The overlying bone according to the patient's failed to heal and hardware was subsequently removed. The 's been caring for the wound the past few months and notes there's been some dried drainage accumulating over the wound surface which he's removed. He also stopped applying topical antibiotic a few weeks ago. The patient reports some mild intermittent pain at the site but no other acute issues today. Past Medical History This information was obtained from the patient Patient has a medical history of: CVA Diverticulitis Thrombocytosis Complaints and Symptoms This information was obtained from the patient Patient complains of: General Notes: I have reviewed and concur with the Review of Systems and Past Family Social History documents completed by the clinician, I have reviewed and concur with the Wound Assessment document completed by the clinician Hematologic/Lymphatic: Bleeding Tendency Integumentary (Hair/Skin/Nails): Open Sore Prior Wound History: Drainage, Pain Patient denies complaints or symptoms related to: Constitutional Symptoms (General Health): Chills, Fever Ear/Nose/Mouth/Throat: Hearing Loss / Aid Hematologic/Lymphatic: Bleeding / Clotting Disorders Neurological: Loss of Protective Sensation Psychiatric: Memory Loss Respiratory: Shortness of Breath OBJECTIVE Constitutional BP normal; Low grade fever; Alert and in no distress. Well developed. Alert. Clean appearing.. Height/Length: 62 in (157.48 cm), Weight: 142 lbs (64.55 kgs), BMI: 26, Temperature: 99.6 ? F (37.56 ?C), Pulse: 81 bpm, Respiratory Rate: 18 breaths/min, Blood Pressure: 134/80 mmHg, Pulse Oximetry: 97 %. Ears, Nose, Mouth, and Throat: No clinically significant hearing loss on informal examination. Respiratory: No respiratory distress. Even respirations and without use of accessory muscles.. Integumentary (Hair, Skin) No periwound erythema, warmth, or significant drainage. No periwound rashes appreciated or noted otherwise.. Refer to appropriate clinician wound documentation for this visit; right scalp wound margins healed except for approx 1cm central area of hypergranulation; no tunneling or signs of clinically significant infection. Wound #2 Head - temporal is a chronic Full Thickness Surgical Wound and has received a status of Not Healed. Subsequent wound encounter measurements are 1.1cm length x 0.4cm width x 0.1cm depth, with an area of 0.44 sq cm and a volume of 0.044 cubic cm. No tunneling has been noted. No sinus tract has been noted. Undermining has been noted at :00 and ends at :00. There is a large amount of purulent drainage noted which has no odor. The patient reports a wound pain of level 2/10. The wound margin is irregular. Wound bed has No epithelialization, No eschar, Yes slough, Yes pink, spongy granulation. The periwound skin texture is normal. The periwound skin moisture is normal. The periwound skin color is normal. The temperature of the periwound skin is WNL. Periwound skin does not exhibit signs or symptoms of infection. Local Pulse is N/A. Neurological: Cranial nerves grossly intact with symmetric function normal by informal observation.. ASSESSMENT Active Problems ICD-10 (Encounter Diagnosis) S01.00XD - Unspecified open wound of scalp, subsequent encounter (Encounter Diagnosis) B95.7 - Other staphylococcus as the cause of diseases classified elsewhere PLAN Wound Orders: Wound #2 Head - temporal Cleanser Cleanse Wound: - With Distilled water or Normal saline. Dressings Primary dressing: - Small telfa to wound. Change Dressing: - Every other day. Follow-Up Appointments Return Appointment: - - in one week Other information: If you develop fever, chills, increased pain, drainage, redness or swelling please call our office. If after hours, respond to the ER. Should you experience any significant changes in your wound(s) or have any questions regarding your home care instructions please contact the wound center @ [phone]. If after hours, contact your primary care physician or go to the hospital emergency room. Additional Orders: Scribing Attestation I attest, as the nurse, that I scribed these orders for the physician. I've reviewed the clinician's documentation and agree with the evaluation and plan as written. Also, we'll defer additional antibiotics while monitoring for signs of recurrent infection and wound dehisence. In addition the presence of hypergranulation tissue in the wound was not an expected finding and was cauterized with silver nitrate. The patient's dressing regimen will be modified appropriately to attempt to reduce the formation of further hypergranulation tissue. Electronic Signature(s) Signed By: Date: Reji Rodney MD 04/30/2018 13:28:46 Entered By: Reji Rodney on 04/30/2018 06:47:52
== END ==
PROVIDERS: Family Provider Physician Assistant; PCP Physician Assistant; Visit Provider Internal Medicine
DX: T81.31XA Disruption of external operation (surgical) wound, not elsewhere classified, initial encounter (principal); S01.00XA Unspecified open wound of scalp, initial encounter; L92.9 Granulomatous disorder of the skin and subcutaneous tissue, unspecified; B95.7 Other staphylococcus as the cause of diseases classified elsewhere
CPT/HCPCS: 17250

== ENCOUNTER → 2018-05-04 08:31 | Outpatient (CLI) | payer MEDICARE, OTHER, SELFPAY | PROVIDERS: Family Provider Physician Assistant; PCP Physician Assistant; Visit Provider Family Medicine | DX: S01.00XA Unspecified open wound of scalp, initial encounter (principal) | CPT/HCPCS: 11042; 87070; 87075; 87205 ==

== ENCOUNTER → 2018-05-17 10:48 | Outpatient (CLI) | payer MEDICARE, OTHER, SELFPAY | PROVIDERS: Family Provider Physician Assistant; PCP Physician Assistant; Visit Provider Family Medicine | DX: Z48.817 Encounter for surgical aftercare following surgery on the skin and subcutaneous tissue (principal) | CPT/HCPCS: 99212 ==

== ENCOUNTER → 2018-05-30 13:58 | Outpatient (CLI) | payer MEDICARE, OTHER, SELFPAY | PROVIDERS: Family Provider Physician Assistant; PCP Physician Assistant; Visit Provider Student in an Organized Health Care Education/Training Program | DX: N39.0 Urinary tract infection, site not specified (principal) | CPT/HCPCS: 87077; 87086 ==

== ENCOUNTER → 2018-06-20 15:00 | Outpatient (CLI) | payer MEDICARE, OTHER, SELFPAY | PROVIDERS: Family Provider Physician Assistant; PCP Physician Assistant; Visit Provider Family Medicine | DX: S01.00XA Unspecified open wound of scalp, initial encounter (principal); L08.9 Local infection of the skin and subcutaneous tissue, unspecified | CPT/HCPCS: 11042; 87070; 87075; 87205; 99213 ==

== ENCOUNTER → 2018-06-27 14:44 | Outpatient (CLI) | payer MEDICARE, OTHER, SELFPAY | PROVIDERS: Family Provider Physician Assistant; PCP Physician Assistant; Visit Provider Family Medicine | DX: S01.00XA Unspecified open wound of scalp, initial encounter (principal); L08.9 Local infection of the skin and subcutaneous tissue, unspecified | CPT/HCPCS: 97597 ==

== ENCOUNTER → 2018-07-04 17:04 | Outpatient (CLI) | payer MEDICARE, OTHER, SELFPAY | PROVIDERS: Family Provider Physician Assistant; PCP Physician Assistant; Visit Provider Family Medicine | DX: S01.00XA Unspecified open wound of scalp, initial encounter (principal); L08.9 Local infection of the skin and subcutaneous tissue, unspecified; Z22.322 Carrier or suspected carrier of Methicillin resistant Staphylococcus aureus | CPT/HCPCS: 99212 ==

== ENCOUNTER 2018-07-13 10:17 | Inpatient (IN) | payer MEDICARE, OTHER, SELFPAY ==
[2018-07-13] VITALS (10 sets, daily range): BP systolic 126–179; BP diastolic 76–87; PULSE 67–79; RESP 15–27; TEMP 36.8–37.3; O2SAT 92–97; BMI 25.7
--- NOTE | 2018-07-13 10:39 | ED.NEUROSD ---
HPI - Neuro Symptoms/Deficit General Chief Complaint: Neuro Symptoms/Deficit Stated Complaint: L Leg Weakness Time Seen by Provider: 07/13/18 10:29 Source: patient Mode of arrival: ambulatory Limitations: no limitations History of Present Illness HPI Narrative: This is a 78-year-old female who comes to the emergency department with complaint of left leg weakness. Patient to bed 11:00 p.m. was normal at that time and woke up with her symptoms. Patient has a history of TIAs and CVAs has some mobility issues but this is a new change for her she is able to lift and move her legs plantar and dorsiflex but she drags her leg when she is walking. Her is also noticing a slight facial droop that is new. Patient denies any headache, she denies any vision changes, she denies any chest pain or shortness breath. No nausea no vomiting no GI or urinary symptoms. Patient is not having any numbness, tingling or other weakness in her other extremities. Patient is not having any difficulty with her speech. Per patient does have a history of having a brain biopsy after being stent to [facility] for her last stroke, he states that there were issues with healing and she had to have 3 different episodes of attempting to reach close the wound. They did find that the bone itself did not appear to have osteomyelitis and patient started having a little bit of scabbing recently. He states that she was put on doxycycline again and she was diagnosed with MRSA initially with the wound issues. That was 2 weeks ago and she has not had any new changes. Related Data Home Medications Medication Instructions Recorded Confirmed atorvastatin [Lipitor] 20 mg PO BEDTIME #0 11/02/16 07/13/18 clopidogrel [Plavix] 75 mg PO DAILY #0 11/02/16 07/13/18 aspirin 81 mg PO DAILY 01/10/18 07/13/18 famotidine 20 mg PO BID 01/10/18 07/13/18 levothyroxine 1 tab PO MOWEFR 01/10/18 07/13/18 levothyroxine 1 tab PO SUTUTHSA 01/10/18 07/13/18 losartan 100 mg PO DAILY 01/10/18 07/13/18 venlafaxine 1 cap PO QPM 01/10/18 07/13/18 cholecalciferol (vitamin D3) 400 unit PO DAILY 07/13/18 07/13/18 [Vitamin D3] cyanocobalamin (vitamin B-12) 1 dose IM Q2W 07/13/18 07/13/18 Allergies Allergy/AdvReac Type Severity Reaction Status Date / Time Penicillins [PENICILLINS] Allergy Severe LESIONS IN Verified 07/13/18 10:34 HER MOUTH ciprofloxacin [CIPROFLOXACIN] Allergy Intermediate tongue Verified 07/13/18 10:34 inflammation wheat [WHEAT] Allergy Unknown ABD PAIN Verified 07/13/18 10:34 Review of Systems Review of Systems All systems reviewed & are unremarkable except as noted in HPI and below Constitutional Denies fever(s) and Denies headache(s) Eyes Denies change in vision ENT Ears, Nose, Mouth, and Throat: Denies headache(s), Denies nasal congestion and Denies disequilibrium Cardiovascular Denies chest pain, Denies syncope, Denies dyspnea and Denies dyspnea on exertion Respiratory Denies chest congestion, Denies cough, Denies dyspnea, Denies dyspnea on exertion and Denies wheezing Gastrointestinal Gastrointestinal: Denies abdominal pain, Denies change in bowel habits, Denies diarrhea, Denies nausea and Denies vomiting Genitourinary Denies hematuria, Denies urinary frequency, Denies difficulty voiding, Denies dysuria, Denies flank pain, Denies urinary incontinence and Denies urinary urgency Musculoskeletal Reports as per HPI, Reports abnormal gait, Reports limited range of motion (left leg dragging), Denies numbness and Denies tingling Neurologic Reports as per HPI, Denies abnormal speech, Reports abnormal gait, Denies syncope, Denies headache(s), Reports focal weakness, Denies numbness, Denies sensory deficit, Denies tingling, Denies paresthesias and Denies disequilibrium Allergic/Immunologic Denies wheezing PFSH Medical History CVA (cerebral vascular accident) (Acute) Stroke (Acute) Family History: Reviewed 07/13/18 by Azael Simmons DO Social History household members: spouse Smoking Status: Never smoker alcohol intake: current Exam Narrative Exam Narrative: GEN: well nourished, well appearing elderly female, alert and oriented x 3, patient appears to be in mild distress. HEENT: Atraumatic, pupils are equal round reactive to light, extraocular movements are intact, nares are clear, TMs are clear with no fluid, there is no conjunctival pallor. Throat is clear without any exudates, erythema, tonsillar enlargement or uvular deviation, mild facial droop. HEART: Regular rate and rhythm without murmur, clicks, rubs. Pulses are equal in upper and lower extremities LUNGS:Lungs clear to auscultation, no wheezes, rales, crackles, chest moves symmetrically ABD:bowel sounds normal, soft, non-tender, no guarding, rebound, rigidity, no masses noted, no hepatosplenomegaly :No CVA tenderness MSCL: Non-tender, no muscle atrophy, muscles strength 5/5 upper and lower extremities, full range of motion. NEURO:CN 2-12 intact, sensation normal, reflexes 2/4 upper and lower extremities. finger nose finger test normal, heel mayen test normal Initial Vital Signs Initial Vital Signs: Vital Signs Temperature 98.3 F 07/13/18 10:27 Pulse Rate 79 07/13/18 10:27 Respiratory Rate 20 07/13/18 10:27 Blood Pressure 179/80 H 07/13/18 10:27 Pulse Oximetry 95 07/13/18 10:27 Scores NIH Stroke Scale Level of Conciousness: Alert, keenly responsive Ask month/age: Answers both questions correctly. Open/close eyes, close hand: Performs both tasks correctly Best gaze horizontal: Normal Visual serrano: No visual loss Facial palsy: Minor paralysis, flattened nasolabial fold, asymmetry on smiling Left arm drift: No drift for full 10 sec Right arm drift: No drift for full 10 sec Left leg drift: No drift for full 10 sec Right leg drift: No drift for full 10 sec Limb ataxia: Absent Sensory on face/arms/legs: Normal, no sensory loss Best language: No aphasia, normal Dysarthria: Normal Extinction or inattention: No abnormality Total NIH Stroke scale score: 1 Course Orders Ordered: ED Orders 07/13/18 10:15 Basic Metabolic Panel Stat Complete Blood Count AUTO DIFF Stat Partial Thromboplastin Time Stat Prothrombin Time INR Stat Troponin I Stat 07/13/18 10:37 EKG-12 Lead Stat 07/13/18 10:59 CT angio head and neck Stat CT head/brain wo con Stat 07/13/18 12:35 MR stroke Stat 07/13/18 12:56 Education, smoking cessation ONGOING 07/13/18 13:01 Consult to Discharge Planning Routine Consult to Occupational Therapy Evaluate & Treat Consult to Physical Therapy Evaluate & Treat Consult to Barrel Roller Operator Routine 07/13/18 13:50 MRSA PCR Urgent 07/14/18 05:00 Complete Blood Count AUTO DIFF DAILY Comprehensive Metabolic Panel DAILY Lipid Panel Routine Phosphorous DAILY Acetaminophen (Tylenol) 650 mg PO Q6HR PRN PRN Reason: As Needed for Fever/Mild Pain Atorvastatin Calcium (Lipitor) 20 mg PO BEDTIME PAIGE Bisacodyl (Dulcolax) 10 mg MD DAILY PRN PRN Reason: Constipation Calcium Carbonate (Tums) 1,000 mg PO Q4HR PRN PRN Reason: Dyspepsia Cyanocobalamin (Vitamin B-12) 1,000 mcg IM Q14D@0900 [facility] Dipyridamole/Aspirin (Aggrenox 25 Mg-200 Mg Capsule) 1 each PO BID [facility] Enoxaparin Sodium (Lovenox) 40 mg SUBCUT DAILY [facility] Hydralazine HCl (Apresoline) 10 mg IV Q6HR PRN PRN Reason: FOR BP>200/100 Sodium Chloride (Normal Saline 0.9%) 1,000 mls @ 150 mls/hr IV CONT PAIGE Last Infusion: 07/13/18 13:23 Dose: 150 mls/hr Admin: 07/13/18 10:52 Dose: 150 mls/hr Levothyroxine Sodium (Synthroid) 88 mcg PO SuTuThSa@0600 PAIGE Levothyroxine Sodium (Synthroid) 100 mcg PO MoWeFr@0600 [facility] Magnesium Hydroxide (Milk Of Magnesia) 30 ml PO DAILY PRN PRN Reason: Constipation Ondansetron HCl (Zofran) 4 mg IV Q8HR PRN PRN Reason: Nausea And Vomiting Oxycodone HCl (Percolone) 5 mg PO Q6HR PRN PRN Reason: Pain, Moderate (4-6) Pantoprazole Sodium (Protonix) 20 mg PO 0600 PAIGE Promethazine HCl (Phenadoz) 12.5 mg MD Q6HR PRN PRN Reason: Nausea And Vomiting Ranitidine HCl (Zantac) 150 mg PO BID [facility] Sodium Biphosphate/Sodium Phosphate (Fleet Enema) 1 each MD PRN PRN PRN Reason: Constipation Venlafaxine HCl (Effexor Xr) 37.5 mg PO QPM [facility] Vitamin D (Vitamin D3) 400 unit PO DAILY PAIGE Discontinued Medications Aspirin (Aspirin Chew) 162 mg PO NOW ONE Stop: 07/13/18 12:11 Last Admin: 07/13/18 12:13 Dose: 162 mg Aspirin (Aspirin Ec) 325 mg PO DAILY [facility] Clopidogrel Bisulfate (Plavix) 75 mg PO DAILY [facility] Vital Signs - 8 hr 07/13/18 10:27 07/13/18 11:41 07/13/18 12:46 Temperature 98.3 F Pulse Rate 79 70 73 Respiratory Rate 20 15 27 H Blood Pressure 179/80 H Blood Pressure [Left Arm] 151/79 H 158/76 H Pulse Oximetry 95 97 95 07/13/18 13:06 07/13/18 13:14 07/13/18 14:03 Temperature 98.7 F Pulse Rate 70 67 68 Respiratory Rate 23 15 16 Blood Pressure 126/82 144/85 H Blood Pressure [Left Arm] 126/82 Pulse Oximetry 93 96 95 07/13/18 16:41 Temperature 99.2 F Pulse Rate 70 Respiratory Rate 18 Blood Pressure 142/86 H Blood Pressure [Left Arm] Pulse Oximetry 92 MDM - Neuro Symptoms/Deficit Lab Data Attestation: I reviewed the patient's lab results. Result diagrams: 07/13/18 10:15 07/13/18 10:15 Lab Results 07/13/18 07/13/18 07/13/18 Range/Units 10:15 10:15 10:15 WBC 7.0 (4.5-11.0) X10^3/uL RBC 4.61 (4.0-5.2) X10^6/uL Hgb 13.2 (12.0-16.0) g/dL Hct 38.8 (36-46) % MCV 84.3 (80-100) fL MCH 28.6 (26-34) PG MCHC 33.9 (30-36) % RDW 15.7 H (11.6-14.8) % Plt Count 572 H (150-400) X10^3/uL Neut % (Auto) 64.8 (50-75) % Lymph % (Auto) 22.9 L (25-40) % [place] % (Auto) 7.4 (3-14) % Eos % (Auto) 3.6 (2-4) % Baso % (Auto) 1.3 (0-2) % Neut # (Auto) 4500 (4999-9317) /uL PT 11.4 (10.1-12.7) SECONDS INR 1.0 (0.9-1.3) APTT 31 D (26.4-36.2) SECONDS Sodium 143 (137-145) mmol/L Potassium 3.6 (3.4-5.1) mmol/L Chloride 103 (98-107) mmol/L Carbon Dioxide 27 (22-32) mmol/L BUN 18 H (7-17) mg/dL Creatinine 0.70 (0.52-1.04) mg/dL Estimated GFR > 60.0 (>60) mL/min BUN/Creatinine Ratio 25.7 H (6-22) Glucose 91 (80-110) mg/dL Calcium 9.0 (8.4-10.2) mg/dL Troponin I < 0.012 (0.01-0.034) ng/mL Nasal Screen MRSA (PCR) (Negative) 07/13/18 Range/Units 13:50 WBC (4.5-11.0) X10^3/uL RBC (4.0-5.2) X10^6/uL Hgb (12.0-16.0) g/dL Hct (36-46) % MCV (80-100) fL MCH (26-34) PG MCHC (30-36) % RDW (11.6-14.8) % Plt Count (150-400) X10^3/uL Neut % (Auto) (50-75) % Lymph % (Auto) (25-40) % [place] % (Auto) (3-14) % Eos % (Auto) (2-4) % Baso % (Auto) (0-2) % Neut # (Auto) (0339-3845) /uL PT (10.1-12.7) SECONDS INR (0.9-1.3) APTT (26.4-36.2) SECONDS Sodium (137-145) mmol/L Potassium (3.4-5.1) mmol/L Chloride (98-107) mmol/L Carbon Dioxide (22-32) mmol/L BUN (7-17) mg/dL Creatinine (0.52-1.04) mg/dL Estimated GFR (>60) mL/min BUN/Creatinine Ratio (6-22) Glucose (80-110) mg/dL Calcium (8.4-10.2) mg/dL Troponin I (0.01-0.034) ng/mL Nasal Screen MRSA (PCR) Negative for mrsa (Negative) Urine Dip Bedside Urine Glucose Negative Bedside Urine Bilirubin - Negative Bedside Urine Ketone - Negative Urine Specific [place] 1.010 Bedside Urine Occult Blood - Negative Bedside Urine pH 7.0 Bedside Urine Protein - Negative Bedside Urine Urobilinogen - Negative Bedside Urine Nitrite - Negative Bedside Urine Leukocytes - Negative Esterase Imaging Data CT scan - head: Radiologist's impression: [address] [address] [address] Scan Report Signed Patient: Tenisha Mejia MR#: [id number] : 1940 Acct:[id number] Age/Sex: 78 / F Date of Service: 07/13/18 Loc: ED Accession Number: [id number] Procedure: CT head/brain wo con Ordering Provider: Comfort Guzmán D.O. PROCEDURE: CT HEAD/BRAIN WO CON INDICATIONS: woke up left leg dragging, slight facial droop, hx tia/cva TECHNIQUE: Noncontrast 4.5 mm thick angled axial sections acquired from the foramen magnum to the vertex, with coronal and sagittal reformats. For radiation dose reduction, the following was used: automated exposure control, adjustment of mA and/or kV according to patient size. COMPARISON: [facility], CT, CT HEAD/BRAIN WO CON, 01/10/2018, 15:33. FINDINGS: Image quality: Excellent. CSF spaces: Basal cisterns are patent. No extra-axial fluid collections. The ventricles are symmetric in size and shape. Brain: No intracranial bleeds or masses. Old infarctions involving bilateral basal ganglia are again seen with encephalomalacia. There is cerebral volume loss for age, with resultant ventricular and sulcal prominence. There are periventricular and deep white matter chronic small vessel ischemic changes. There is intracranial internal carotid artery atherosclerosis. Skull and face: Calvarium and visualized facial bones appear intact, without suspicious lesions. Sinuses: Visualized sinuses and mastoids are clear. IMPRESSION: 1. No CT evidence of acute intracranial pathology. No significant changes from previous studies. 2. Old infarctions in bilateral basal ganglia. Age-appropriate atrophy and mild to moderate periventricular white matter might arthropathic changes. Dictated by: Ken Atkins M.D. on 07/13/2018 at 11:17 Approved by: Ken Atkins M.D. on 07/13/2018 at 11:18 CTA head/neck: Radiologist's impression: [address] [address] [address] Scan Report Signed Patient: Tenisha Mejia MR#: [id number] : 1940 Acct:[id number] Age/Sex: 78 / F Date of Service: 07/13/18 Loc: ED Accession Number: [id number] Procedure: CT angio head and neck Ordering Provider: Comfort Guzmán D.O. PROCEDURE: CT ANGIO HEAD AND NECK INDICATIONS: woke up left leg dragging, slight facial droop, hx tia/cva TECHNIQUE: Pre-contrast 4.5 mm thick sections acquired from the foramen magnum to the vertex. After the administration of intravenous contrast, 1 mm thick sections acquired from the aortic arch through the [place] of [place]. Post-contrast 4.5 mm thick sections then re-acquired from the foramen magnum to the vertex. 3-dimensional ajqudbo-oimelsusa-tyocbkqhul (MIP) and/or volume rendering reformats were acquired of the central intracranial vasculature and neck separately. COMPARISON: [facility], CT, HEAD WITHOUT CONTRAST, 11/04/2016, 22:08. [facility], MR, BRAIN W&WO CONTRAST, 11/01/2016, 11:32. [facility], CT, CT HEAD/BRAIN WO CON, 01/10/2018, 15:33. [facility], CT, CT BRAIN WO CON, 05/22/2015, 13:38. [facility], CT, HEAD AND NECK ANGIO, 06/07/2014, 19:38. [facility], CT, CT HEAD/BRAIN WO CON, 07/13/2018, 10:58. FINDINGS: Image quality: Excellent. BRAIN: CSF spaces: Ventricles are normal in size and shape. Basal cisterns are patent. No extra-axial fluid collections. Brain: No midline shift. No intracranial bleeds or masses. [place]-white matter interface appears intact. Skull and face: Calvarium and facial bones appear intact, without suspicious lesions. Orbits appear normal. Sinuses: Sinuses and mastoids are clear. HEAD CT ANGIOGRAPHY: Anterior circulation: Intracranial internal carotid arteries are normal in size and flow. The flow within the paired anterior cerebral arteries is normal and symmetric. The flow within the middle cerebral arteries is normal and symmetric. The anterior communicating artery is seen. No aneurysms are seen. Posterior circulation: Visualized portions of the vertebral arteries demonstrate normal caliber, and join to form a normal appearing basilar artery. Flow within the posterior cerebral arteries is normal and symmetric. No aneurysms are seen. NECK CT ANGIOGRAPHY: Carotid system: The great vessels demonstrate a conventional anatomy as they arise from the aortic arch. The origins of the common carotid arteries appear patent. The common carotid arteries demonstrate normal caliber and courses. The bifurcation regions are both widely patent. The internal carotid arteries demonstrate normal calibers and courses. Posterior circulation: The origins of the vertebral arteries both appear widely patent. The more superior extracranial portions of both vertebral arteries also demonstrate normal courses and calibers. They join to form a normal appearing basilar artery. Soft tissues: Visualized neck soft tissues demonstrate no suspicious abnormalities. Bones: No suspicious bony lesions. Visualized cervical spine appears normally aligned. Prior right frontal craniotomy and left frontal lucent by diploic space sharply demarcated lucency is again noted. IMPRESSION: No embolus found, no dissection present. By this examination no area of arterial stenosis is seen. MR scanning may be warranted to assess for presence or absence of acute/subacute ischemic injury involving the brain parenchyma that is not visualized by CT scanning. Any quantitative measurements of stenosis were performed using NASCET criteria. Dictated by: Gallo Aparicio M.D. on 07/13/2018 at 11:46 Approved by: Gallo Aparicio M.D. on 07/13/2018 at 11:54 ECG Data Attestation: I personally reviewed and interpreted this ECG as follows: Interpretation: Sinus rhythm with ventricular rate of 71 P are interval of 200 QRS of 92 and QTC of 430. Patient left axis deviation. No ST elevation or depression appreciated. MDM Narrative Medical decision making narrative: Patient is outside the window for tPA as she went to bed at 11:00 p.m. normal and woke up this morning with symptoms. Patient had 162mg asa this morning. She normally take asa 81mg and plavix daily. Patient continues to drag her foot when up to bedside commode requiring assistance. CT of head and CTA showed no acute process. Lab work shows no major changes. Patient's blood pressure is slightly elevated but not dramatically so. Patient had 2 aspirin this morning was given 2 additional here in the ER. Spoke with Dr. Chance who accepts and we discussed ordering MRI for patient to be evaluated for stroke. Discharge Plan Departure Patient Disposition: Admitted as Observation Clinical Impression: Acute CVA (cerebrovascular accident) Discharge Date/Time: 07/13/18 13:21 Interventions: ED Discharge Assessment Last Done: 07/13/18 13:14 Admit Date/Time: 07/13/18 12:45 Admit Provider: Azael Simmons
--- NOTE | 2018-07-13 10:45 | ED_ITS ---
HPI - Neuro Symptoms/Deficit General Chief Complaint: Neuro Symptoms/Deficit Stated Complaint: L Leg Weakness Time Seen by Provider: 07/13/18 10:29 Source: patient Mode of arrival: ambulatory Limitations: no limitations History of Present Illness HPI Narrative: This is a 78-year-old female who comes to the emergency department with complaint of left leg weakness. Patient to bed 11:00 p.m. was normal at that time and woke up with her symptoms. Patient has a history of TIAs and CVAs has some mobility issues but this is a new change for her she is able to lift and move her legs plantar and dorsiflex but she drags her leg when she is walking. Her is also noticing a slight facial droop that is new. Patient denies any headache, she denies any vision changes, she denies any chest pain or shortness breath. No nausea no vomiting no GI or urinary symptoms. Patient is not having any numbness, tingling or other weakness in her other extremities. Patient is not having any difficulty with her speech. Per patient does have a history of having a brain biopsy after being stent to [facility] for her last stroke, he states that there were issues with healing and she had to have 3 different episodes of attempting to reach close the wound. They did find that the bone itself did not appear to have osteomyelitis and patient started having a little bit of scabbing recently. He states that she was put on doxycycline again and she was diagnosed with MRSA initially with the wound issues. That was 2 weeks ago and she has not had any new changes. Related Data Home Medications Medication Instructions Recorded Confirmed atorvastatin [Lipitor] 20 mg PO BEDTIME #0 11/02/16 07/13/18 clopidogrel [Plavix] 75 mg PO DAILY #0 11/02/16 07/13/18 aspirin 81 mg PO DAILY 01/10/18 07/13/18 famotidine 20 mg PO BID 01/10/18 07/13/18 levothyroxine 1 tab PO MOWEFR 01/10/18 07/13/18 levothyroxine 1 tab PO SUTUTHSA 01/10/18 07/13/18 losartan 100 mg PO DAILY 01/10/18 07/13/18 venlafaxine 1 cap PO QPM 01/10/18 07/13/18 cholecalciferol (vitamin D3) 400 unit PO DAILY 07/13/18 07/13/18 [Vitamin D3] cyanocobalamin (vitamin B-12) 1 dose IM Q2W 07/13/18 07/13/18 Allergies Allergy/AdvReac Type Severity Reaction Status Date / Time Penicillins [PENICILLINS] Allergy Severe LESIONS IN Verified 07/13/18 10:34 HER MOUTH ciprofloxacin [CIPROFLOXACIN] Allergy Intermediate tongue Verified 07/13/18 10: 34 inflammation wheat [WHEAT] Allergy Unknown ABD PAIN Verified 07/13/18 10:34 Review of Systems Review of Systems All systems reviewed & are unremarkable except as noted in HPI and below Constitutional Denies fever(s) and Denies headache(s) Eyes Denies change in vision ENT Ears, Nose, Mouth, and Throat: Denies headache(s), Denies nasal congestion and Denies disequilibrium Cardiovascular Denies chest pain, Denies syncope, Denies dyspnea and Denies dyspnea on exertion Respiratory Denies chest congestion, Denies cough, Denies dyspnea, Denies dyspnea on exertion and Denies wheezing Gastrointestinal Gastrointestinal: Denies abdominal pain, Denies change in bowel habits, Denies diarrhea, Denies nausea and Denies vomiting Genitourinary Denies hematuria, Denies urinary frequency, Denies difficulty voiding, Denies dysuria, Denies flank pain, Denies urinary incontinence and Denies urinary urgency Musculoskeletal Reports as per HPI, Reports abnormal gait, Reports limited range of motion ( left leg dragging), Denies numbness and Denies tingling Neurologic Reports as per HPI, Denies abnormal speech, Reports abnormal gait, Denies syncope, Denies headache(s), Reports focal weakness, Denies numbness, Denies sensory deficit, Denies tingling, Denies paresthesias and Denies disequilibrium Allergic/Immunologic Denies wheezing PFSH Medical History CVA (cerebral vascular accident) (Acute) Stroke (Acute) Family History: Reviewed 07/13/18 by Azael Simmons DO Social History household members: spouse Smoking Status: Never smoker alcohol intake: current Exam Narrative Exam Narrative: GEN: well nourished, well appearing elderly female, alert and oriented x 3, patient appears to be in mild distress. HEENT: Atraumatic, pupils are equal round reactive to light, extraocular movements are intact, nares are clear, TMs are clear with no fluid, there is no conjunctival pallor. Throat is clear without any exudates, erythema, tonsillar enlargement or uvular deviation, mild facial droop. HEART: Regular rate and rhythm without murmur, clicks, rubs. Pulses are equal in upper and lower extremities LUNGS:Lungs clear to auscultation, no wheezes, rales, crackles, chest moves symmetrically ABD:bowel sounds normal, soft, non-tender, no guarding, rebound, rigidity, no masses noted, no hepatosplenomegaly :No CVA tenderness MSCL: Non-tender, no muscle atrophy, muscles strength 5/5 upper and lower extremities, full range of motion. NEURO:CN 2-12 intact, sensation normal, reflexes 2/4 upper and lower extremities. finger nose finger test normal, heel mayen test normal Initial Vital Signs Initial Vital Signs: Vital Signs Temperature 98.3 F 07/13/18 10:27 Pulse Rate 79 07/13/18 10:27 Respiratory Rate 20 07/13/18 10:27 Blood Pressure 179/80 H 07/13/18 10:27 Pulse Oximetry 95 07/13/18 10:27 Scores NIH Stroke Scale Level of Conciousness: Alert, keenly responsive Ask month/age: Answers both questions correctly. Open/close eyes, close hand: Performs both tasks correctly Best gaze horizontal: Normal Visual serrano: No visual loss Facial palsy: Minor paralysis, flattened nasolabial fold, asymmetry on smiling Left arm drift: No drift for full 10 sec Right arm drift: No drift for full 10 sec Left leg drift: No drift for full 10 sec Right leg drift: No drift for full 10 sec Limb ataxia: Absent Sensory on face/arms/legs: Normal, no sensory loss Best language: No aphasia, normal Dysarthria: Normal Extinction or inattention: No abnormality Total NIH Stroke scale score: 1 Course Orders Ordered: ED Orders 07/13/18 10:15 Basic Metabolic Panel Stat Complete Blood Count AUTO DIFF Stat Partial Thromboplastin Time Stat Prothrombin Time INR Stat Troponin I Stat 07/13/18 10:37 EKG-12 Lead Stat 07/13/18 10:59 CT angio head and neck Stat CT head/brain wo con Stat 07/13/18 12:35 MR stroke Stat 07/13/18 12:56 Education, smoking cessation ONGOING 07/13/18 13:01 Consult to Discharge Planning Routine Consult to Occupational Therapy Evaluate & Treat Consult to Physical Therapy Evaluate & Treat Consult to Product Applications Engineer Routine 07/13/18 13:50 MRSA PCR Urgent 07/14/18 05:00 Complete Blood Count AUTO DIFF DAILY Comprehensive Metabolic Panel DAILY Lipid Panel Routine Phosphorous DAILY Acetaminophen (Tylenol) 650 mg PO Q6HR PRN PRN Reason: As Needed for Fever/Mild Pain Atorvastatin Calcium (Lipitor) 20 mg PO BEDTIME PAIGE Bisacodyl (Dulcolax) 10 mg NM DAILY PRN PRN Reason: Constipation Calcium Carbonate (Tums) 1,000 mg PO Q4HR PRN PRN Reason: Dyspepsia Cyanocobalamin (Vitamin B-12) 1,000 mcg IM Q14D@0900 [facility] Dipyridamole/Aspirin (Aggrenox 25 Mg-200 Mg Capsule) 1 each PO BID [facility] Enoxaparin Sodium (Lovenox) 40 mg SUBCUT DAILY [facility] Hydralazine HCl (Apresoline) 10 mg IV Q6HR PRN PRN Reason: FOR BP>200/100 Sodium Chloride (Normal Saline 0.9%) 1,000 mls @ 150 mls/hr IV CONT PAIGE Last Infusion: 07/13/18 13:23 Dose: 150 mls/hr Admin: 07/13/18 10:52 Dose: 150 mls/hr Levothyroxine Sodium (Synthroid) 88 mcg PO SuTuThSa@0600 PAIGE Levothyroxine Sodium (Synthroid) 100 mcg PO MoWeFr@0600 [facility] Magnesium Hydroxide (Milk Of Magnesia) 30 ml PO DAILY PRN PRN Reason: Constipation Ondansetron HCl (Zofran) 4 mg IV Q8HR PRN PRN Reason: Nausea And Vomiting Oxycodone HCl (Percolone) 5 mg PO Q6HR PRN PRN Reason: Pain, Moderate (4-6) Pantoprazole Sodium (Protonix) 20 mg PO 0600 PAIGE Promethazine HCl (Phenadoz) 12.5 mg NM Q6HR PRN PRN Reason: Nausea And Vomiting Ranitidine HCl (Zantac) 150 mg PO BID [facility] Sodium Biphosphate/Sodium Phosphate (Fleet Enema) 1 each NM PRN PRN PRN Reason: Constipation Venlafaxine HCl (Effexor Xr) 37.5 mg PO QPM [facility] Vitamin D (Vitamin D3) 400 unit PO DAILY PAIGE Discontinued Medications Aspirin (Aspirin Chew) 162 mg PO NOW ONE Stop: 07/13/18 12:11 Last Admin: 07/13/18 12:13 Dose: 162 mg Aspirin (Aspirin Ec) 325 mg PO DAILY [facility] Clopidogrel Bisulfate (Plavix) 75 mg PO DAILY [facility] Vital Signs - 8 hr 07/13/18 10:27 07/13/18 11:41 07/13/18 12:46 Temperature 98.3 F Pulse Rate 79 70 73 Respiratory Rate 20 15 27 H Blood Pressure 179/80 H Blood Pressure [Left Arm] 151/79 H 158/76 H Pulse Oximetry 95 97 95 07/13/18 13:06 07/13/18 13:14 07/13/18 14:03 Temperature 98.7 F Pulse Rate 70 67 68 Respiratory Rate 23 15 16 Blood Pressure 126/82 144/85 H Blood Pressure [Left Arm] 126/82 Pulse Oximetry 93 96 95 07/13/18 16:41 Temperature 99.2 F Pulse Rate 70 Respiratory Rate 18 Blood Pressure 142/86 H Blood Pressure [Left Arm] Pulse Oximetry 92 MDM - Neuro Symptoms/Deficit Lab Data Attestation: I reviewed the patient's lab results. Result diagrams: 07/13/18 10:15 07/13/18 10:15 Lab Results 07/13/18 07/13/18 07/13/18 Range/Units 10:15 10:15 10:15 WBC 7.0 (4.5-11.0) X10^3/uL RBC 4.61 (4.0-5.2) X10^6/uL Hgb 13.2 (12.0-16.0) g/dL Hct 38.8 (36-46) % MCV 84.3 (80-100) fL MCH 28.6 (26-34) PG MCHC 33.9 (30-36) % RDW 15.7 H (11.6-14.8) % Plt Count 572 H (150-400) X10^3/uL Neut % (Auto) 64.8 (50-75) % Lymph % (Auto) 22.9 L (25-40) % Hinds % (Auto) 7.4 (3-14) % Eos % (Auto) 3.6 (2-4) % Baso % (Auto) 1.3 (0-2) % Neut # (Auto) 4500 (9747-8392) /uL PT 11.4 (10.1-12.7) SECONDS INR 1.0 (0.9-1.3) APTT 31 D (26.4-36.2) SECONDS Sodium 143 (137-145) mmol/L Potassium 3.6 (3.4-5.1) mmol/L Chloride 103 (98-107) mmol/L Carbon Dioxide 27 (22-32) mmol/L BUN 18 H (7-17) mg/dL Creatinine 0.70 (0.52-1.04) mg/dL Estimated GFR > 60.0 (>60) mL/min BUN/Creatinine Ratio 25.7 H (6-22) Glucose 91 (80-110) mg/dL Calcium 9.0 (8.4-10.2) mg/dL Troponin I < 0.012 (0.01-0.034) ng/mL Nasal Screen MRSA (PCR) (Negative) 07/13/18 Range/Units 13:50 WBC (4.5-11.0) X10^3/uL RBC (4.0-5.2) X10^6/uL Hgb (12.0-16.0) g/dL Hct (36-46) % MCV (80-100) fL MCH (26-34) PG MCHC (30-36) % RDW (11.6-14.8) % Plt Count (150-400) X10^3/uL Neut % (Auto) (50-75) % Lymph % (Auto) (25-40) % Hinds % (Auto) (3-14) % Eos % (Auto) (2-4) % Baso % (Auto) (0-2) % Neut # (Auto) (4493-8485) /uL PT (10.1-12.7) SECONDS INR (0.9-1.3) APTT (26.4-36.2) SECONDS Sodium (137-145) mmol/L Potassium (3.4-5.1) mmol/L Chloride (98-107) mmol/L Carbon Dioxide (22-32) mmol/L BUN (7-17) mg/dL Creatinine (0.52-1.04) mg/dL Estimated GFR (>60) mL/min BUN/Creatinine Ratio (6-22) Glucose (80-110) mg/dL Calcium (8.4-10.2) mg/dL Troponin I (0.01-0.034) ng/mL Nasal Screen MRSA (PCR) Negative for mrsa (Negative) Urine Dip Bedside Urine Glucose Negative Bedside Urine Bilirubin - Negative Bedside Urine Ketone - Negative Urine Specific [place] 1.010 Bedside Urine Occult Blood - Negative Bedside Urine pH 7.0 Bedside Urine Protein - Negative Bedside Urine Urobilinogen - Negative Bedside Urine Nitrite - Negative Bedside Urine Leukocytes - Negative Esterase Imaging Data CT scan - head: Radiologist's impression: [address] [address] [address] Scan Report Signed Patient: Tenisha Mejia MR#: [id number] : 1940 Acct:[id number] Age/Sex: 78 / F Date of Service: 07/13/18 Loc: ED Accession Number: [id number] Procedure: CT head/brain wo con Ordering Provider: Cmofort Guzmán D.O. PROCEDURE: CT HEAD/BRAIN WO CON INDICATIONS: woke up left leg dragging, slight facial droop, hx tia/cva TECHNIQUE: Noncontrast 4.5 mm thick angled axial sections acquired from the foramen magnum to the vertex, with coronal and sagittal reformats. For radiation dose reduction, the following was used: automated exposure control, adjustment of mA and/or kV according to patient size. COMPARISON: [facility], CT, CT HEAD/BRAIN WO CON, 01/10/2018, 15:33. FINDINGS: Image quality: Excellent. CSF spaces: Basal cisterns are patent. No extra-axial fluid collections. The ventricles are symmetric in size and shape. Brain: No intracranial bleeds or masses. Old infarctions involving bilateral basal ganglia are again seen with encephalomalacia. There is cerebral volume loss for age, with resultant ventricular and sulcal prominence. There are periventricular and deep white matter chronic small vessel ischemic changes. There is intracranial internal carotid artery atherosclerosis. Skull and face: Calvarium and visualized facial bones appear intact, without suspicious lesions. Sinuses: Visualized sinuses and mastoids are clear. IMPRESSION: 1. No CT evidence of acute intracranial pathology. No significant changes from previous studies. 2. Old infarctions in bilateral basal ganglia. Age-appropriate atrophy and mild to moderate periventricular white matter might arthropathic changes. Dictated by: Ken Atkins M.D. on 07/13/2018 at 11:17 Approved by: Ken Atkins M.D. on 07/13/2018 at 11:18 CTA head/neck: Radiologist's impression: [address] [address] [address] Scan Report Signed Patient: Tenisha Mejia MR#: [id number] : 1940 Acct:[id number] Age/Sex: 78 / F Date of Service: 07/13/18 Loc: ED Accession Number: [id number] Procedure: CT angio head and neck Ordering Provider: Comfort Guzmán D.O. PROCEDURE: CT ANGIO HEAD AND NECK INDICATIONS: woke up left leg dragging, slight facial droop, hx tia/cva TECHNIQUE: Pre-contrast 4.5 mm thick sections acquired from the foramen magnum to the vertex. After the administration of intravenous contrast, 1 mm thick sections acquired from the aortic arch through the [place] of [place]. Post-contrast 4.5 mm thick sections then re- acquired from the foramen magnum to the vertex. 3-dimensional maximum-intensity- projection (MIP) and/or volume rendering reformats were acquired of the central intracranial vasculature and neck separately. COMPARISON: [facility], CT, HEAD WITHOUT CONTRAST, 11/04/2016, 22:08. [facility], MR, BRAIN W&WO CONTRAST, 11/01/2016, 11:32. [facility], CT, CT HEAD/BRAIN WO CON, 01/10/2018, 15:33. [facility], CT, CT BRAIN WO CON, 05/22/2015, 13:38. [facility], CT, HEAD AND NECK ANGIO, 06/07/2014, 19: 38. [facility], CT, CT HEAD/BRAIN WO CON, 07/13/2018, 10:58. FINDINGS: Image quality: Excellent. BRAIN: CSF spaces: Ventricles are normal in size and shape. Basal cisterns are patent. No extra-axial fluid collections. Brain: No midline shift. No intracranial bleeds or masses. [place]-white matter interface appears intact. Skull and face: Calvarium and facial bones appear intact, without suspicious lesions. Orbits appear normal. Sinuses: Sinuses and mastoids are clear. HEAD CT ANGIOGRAPHY: Anterior circulation: Intracranial internal carotid arteries are normal in size and flow. The flow within the paired anterior cerebral arteries is normal and symmetric. The flow within the middle cerebral arteries is normal and symmetric. The anterior communicating artery is seen. No aneurysms are seen. Posterior circulation: Visualized portions of the vertebral arteries demonstrate normal caliber, and join to form a normal appearing basilar artery. Flow within the posterior cerebral arteries is normal and symmetric. No aneurysms are seen. NECK CT ANGIOGRAPHY: Carotid system: The great vessels demonstrate a conventional anatomy as they arise from the aortic arch. The origins of the common carotid arteries appear patent. The common carotid arteries demonstrate normal caliber and courses. The bifurcation regions are both widely patent. The internal carotid arteries demonstrate normal calibers and courses. Posterior circulation: The origins of the vertebral arteries both appear widely patent. The more superior extracranial portions of both vertebral arteries also demonstrate normal courses and calibers. They join to form a normal appearing basilar artery. Soft tissues: Visualized neck soft tissues demonstrate no suspicious abnormalities. Bones: No suspicious bony lesions. Visualized cervical spine appears normally aligned. Prior right frontal craniotomy and left frontal lucent by diploic space sharply demarcated lucency is again noted. IMPRESSION: No embolus found, no dissection present. By this examination no area of arterial stenosis is seen. MR scanning may be warranted to assess for presence or absence of acute/subacute ischemic injury involving the brain parenchyma that is not visualized by CT scanning. Any quantitative measurements of stenosis were performed using NASCET criteria. Dictated by: Gallo Aparicio M.D. on 07/13/2018 at 11:46 Approved by: Gallo Aparicio M.D. on 07/13/2018 at 11:54 ECG Data Attestation: I personally reviewed and interpreted this ECG as follows: Interpretation: Sinus rhythm with ventricular rate of 71 P are interval of 200 QRS of 92 and QTC of 430. Patient left axis deviation. No ST elevation or depression appreciated. MDM Narrative Medical decision making narrative: Patient is outside the window for tPA as she went to bed at 11:00 p.m. normal and woke up this morning with symptoms. Patient had 162mg asa this morning. She normally take asa 81mg and plavix daily. Patient continues to drag her foot when up to bedside commode requiring assistance. CT of head and CTA showed no acute process. Lab work shows no major changes. Patient's blood pressure is slightly elevated but not dramatically so. Patient had 2 aspirin this morning was given 2 additional here in the ER. Spoke with Dr. Chance who accepts and we discussed ordering MRI for patient to be evaluated for stroke. Discharge Plan Departure Patient Disposition: Admitted as Observation Clinical Impression: Acute CVA (cerebrovascular accident) Discharge Date/Time: 07/13/18 13:21 Interventions: ED Discharge Assessment Last Done: 07/13/18 13:14 Admit Date/Time: 07/13/18 12:45 Admit Provider: Azael Simmons
[2018-07-13 10:48] LABS: Add Manual Diff / Slide Review NO; Basophils Percent Auto 1.3 % (0-2); Eosinophils Percent Auto 3.6 % (2-4); Hematocrit 38.8 % (36-46); Hemoglobin 13.2 g/dL (12.0-16.0); Lymphocytes Percent Auto 22.9 % (25-40); Mean Corpuscular HGB Conc 33.9 % (30-36); Mean Corpuscular Hemoglobin 28.6 PG (26-34); Mean Corpuscular Volume 84.3 fL (80-100); Monocytes Percent Auto 7.4 % (3-14); Neutrophils Absolute Auto 4500 /uL (1500-7000); Neutrophils Percent Auto 64.8 % (50-75); Platelet Count 572 X10^3/uL (150-400); Red Blood Cell Count 4.61 X10^6/uL (4.0-5.2); Red Cell Distribution Width 15.7 % (11.6-14.8)
[2018-07-13 10:50] LABS: Prothrombin Time 11.4 SECONDS (10.1-12.7)
[2018-07-13 10:52] LABS: PTT Partial Thromboplastin Tim 31 SECONDS (26.4-36.2)
[2018-07-13] MEDS: SODIUM CHLORIDE 0.9% 1,000 ML 150 ML IV (10:52)
[2018-07-13 10:53] LABS: BUN Creatinine Ratio 25.7 (6-22); Blood Urea Nitrogen 18 mg/dL (7-17); Carbon Dioxide 27 mmol/L (22-32); Chloride 103 mmol/L (98-107); Estimated Glomerular Filt Rate > 60.0 mL/min (>60); Glucose 91 mg/dL (80-110); HEMOLYSIS 20 (0-50); Potassium 3.6 mmol/L (3.4-5.1); Sodium 143 mmol/L (137-145)
--- NOTE | 2018-07-13 10:59 | DI.CT.S_ITS ---
PROCEDURE: CT HEAD/BRAIN WO CON INDICATIONS: woke up left leg dragging, slight facial droop, hx tia/cva TECHNIQUE: Noncontrast 4.5 mm thick angled axial sections acquired from the foramen magnum to the vertex, with coronal and sagittal reformats. For radiation dose reduction, the following was used: automated exposure control, adjustment of mA and/or kV according to patient size. COMPARISON: [facility], CT, CT HEAD/BRAIN WO CON, 01/10/2018, 15:33. FINDINGS: Image quality: Excellent. CSF spaces: Basal cisterns are patent. No extra-axial fluid collections. The ventricles are symmetric in size and shape. Brain: No intracranial bleeds or masses. Old infarctions involving bilateral basal ganglia are again seen with encephalomalacia. There is cerebral volume loss for age, with resultant ventricular and sulcal prominence. There are periventricular and deep white matter chronic small vessel ischemic changes. There is intracranial internal carotid artery atherosclerosis. Skull and face: Calvarium and visualized facial bones appear intact, without suspicious lesions. Sinuses: Visualized sinuses and mastoids are clear. IMPRESSION: 1. No CT evidence of acute intracranial pathology. No significant changes from previous studies. 2. Old infarctions in bilateral basal ganglia. Age-appropriate atrophy and mild to moderate periventricular white matter might arthropathic changes. Dictated by: Ken Atkins M.D. on 07/13/2018 at 11:17 Approved by: Ken Atkins M.D. on 07/13/2018 at 11:18
--- NOTE | 2018-07-13 10:59 | DI.CT.S_ITS ---
PROCEDURE: CT ANGIO HEAD AND NECK INDICATIONS: woke up left leg dragging, slight facial droop, hx tia/cva TECHNIQUE: Pre-contrast 4.5 mm thick sections acquired from the foramen magnum to the vertex. After the administration of intravenous contrast, 1 mm thick sections acquired from the aortic arch through the [place] of [place]. Post-contrast 4.5 mm thick sections then re-acquired from the foramen magnum to the vertex. 3-dimensional tlvcssd-jpwhzwnad-zvayzqqieq (MIP) and/or volume rendering reformats were acquired of the central intracranial vasculature and neck separately. COMPARISON: [facility], CT, HEAD WITHOUT CONTRAST, 11/04/2016, 22:08. [facility], MR, BRAIN W&WO CONTRAST, 11/01/2016, 11:32. [facility], CT, CT HEAD/BRAIN WO CON, 01/10/2018, 15:33. [facility], CT, CT BRAIN WO CON, 05/22/2015, 13:38. [facility], CT, HEAD AND NECK ANGIO, 06/07/2014, 19:38. [facility], CT, CT HEAD/BRAIN WO CON, 07/13/2018, 10:58. FINDINGS: Image quality: Excellent. BRAIN: CSF spaces: Ventricles are normal in size and shape. Basal cisterns are patent. No extra-axial fluid collections. Brain: No midline shift. No intracranial bleeds or masses. [place]-white matter interface appears intact. Skull and face: Calvarium and facial bones appear intact, without suspicious lesions. Orbits appear normal. Sinuses: Sinuses and mastoids are clear. HEAD CT ANGIOGRAPHY: Anterior circulation: Intracranial internal carotid arteries are normal in size and flow. The flow within the paired anterior cerebral arteries is normal and symmetric. The flow within the middle cerebral arteries is normal and symmetric. The anterior communicating artery is seen. No aneurysms are seen. Posterior circulation: Visualized portions of the vertebral arteries demonstrate normal caliber, and join to form a normal appearing basilar artery. Flow within the posterior cerebral arteries is normal and symmetric. No aneurysms are seen. NECK CT ANGIOGRAPHY: Carotid system: The great vessels demonstrate a conventional anatomy as they arise from the aortic arch. The origins of the common carotid arteries appear patent. The common carotid arteries demonstrate normal caliber and courses. The bifurcation regions are both widely patent. The internal carotid arteries demonstrate normal calibers and courses. Posterior circulation: The origins of the vertebral arteries both appear widely patent. The more superior extracranial portions of both vertebral arteries also demonstrate normal courses and calibers. They join to form a normal appearing basilar artery. Soft tissues: Visualized neck soft tissues demonstrate no suspicious abnormalities. Bones: No suspicious bony lesions. Visualized cervical spine appears normally aligned. Prior right frontal craniotomy and left frontal lucent by diploic space sharply demarcated lucency is again noted. IMPRESSION: No embolus found, no dissection present. By this examination no area of arterial stenosis is seen. MR scanning may be warranted to assess for presence or absence of acute/subacute ischemic injury involving the brain parenchyma that is not visualized by CT scanning. Any quantitative measurements of stenosis were performed using NASCET criteria. Dictated by: Gallo Aparicio M.D. on 07/13/2018 at 11:46 Approved by: Gallo Aparicio M.D. on 07/13/2018 at 11:54
[2018-07-13 11:06] LABS: Troponin I < 0.012 ng/mL (0.01-0.034)
[2018-07-13] MEDS: ASPIRIN 81 MG TAB 162 MG PO (12:13)
--- NOTE | 2018-07-13 12:35 | DI.MRI.S_ITS ---
PROCEDURE: MR STROKE Pre- and post-contrast brain MRI, non-contrast brain MR angiogram, pre- and postcontrast neck MR angiogram INDICATIONS: mild facial droop, left leg dragging TECHNIQUE: Brain: Noncontrast axial T1 spin echo, axial T2 fast spin echo, sagittal and axial FLAIR, coronal T2 fast spin echo, axial gradient echo, axial diffusion and ADC through the brain. After the administration of contrast, axial 3D VIBE of the cranial vasculature and brain. Brain MRA: Non-contrast 3-D time of flight MR angiogram, with multiple louprsq-ainygnfdk-vklijpmndl (MIP) reformats performed. Neck MRA: Axial and sagittal TruFISP through the neck. Coronal dynamic MR angiogram during administration of contrast in the arterial and venous phases, with 3-dimenstional jaymjfi-hylypeoqi-tqhpharmge (MIP) reformats constructed from subtraction images. COMPARISON: [facility], MR, BRAIN W&WO CONTRAST, 11/01/2016, 11:32. [facility], CT, CT ANGIO HEAD AND NECK, 07/13/2018, 10:58. [facility], CT, CT HEAD/BRAIN WO CON, 07/13/2018, 10:58. FINDINGS: Image quality: Excellent. BRAIN: CSF spaces: Ventricles are normal in size and shape. Basal cisterns are patent. No extra-axial fluid collections. Brain: There is a tiny area of increased diffusion weighted signal abnormality seen within the left superior frontal lobe posteriorly, as on series 6 image 69, with associated dark signal on ADC map. There is also a focus of increased diffusion weighted signal seen within the right lateral cerebellum, as on series 26 image 56, with associated decreased signal on the ADC map. Both of these areas demonstrate early increased T2-weighted signal. No intracranial bleeds or mass effects. Vanegas-white matter interface is normal. Brainstem appears normal. Normal intravascular flow voids are present. No abnormal intracranial enhancement. Skull and face: Prior bifrontal craniotomy changes are seen, which are better defined on the CT examination performed earlier in the day. Calvarial marrow signal is otherwise normal. Orbits appear normal. Note is made of bilateral lens replacements. Sinuses: Sinuses and mastoids are clear. BRAIN MR ANGIOGRAM: Anterior circulation: Intracranial internal carotid arteries are normal in size and enhancement. The flow within the paired anterior cerebral arteries is normal and symmetric. The flow within the middle cerebral arteries is normal and symmetric. The anterior communicating artery is seen. No stenoses, occlusions, or aneurysms. Posterior circulation: The visualized portions of the vertebral arteries demonstrate normal caliber, and join to form a normal appearing basilar artery. There is a prominent right posterior communicating artery seen, with an accompanying diminutive right P1 segment. This is attributed to a type origin of the right posterior cerebral artery, which is considered to be a normal developmental variant of typically no clinical consequence. The flow within the posterior cerebral arteries is normal and symmetric. No stenoses, occlusions, or aneurysms. NECK MR ANGIOGRAM: Carotids: Great vessels demonstrate a conventional anatomy as they arise from the aortic arch. The origins of the common carotid arteries appear patent. The calibers and courses of both common carotid arteries are normal. The bifurcation regions appear normal bilaterally. The internal carotid arteries demonstrate normal course and caliber. Posterior circulation: The origins of the vertebral arteries appear patent. More superior portions of both vertebral arteries demonstrate normal course. No vertebral arteries demonstrate mild tortuosity. The vertebral arteries join to form a normal appearing basilar artery. Miscellaneous: Subclavian arteries appear patent. Pre-contrast images through the neck show no soft tissue abnormalities. IMPRESSION: BRAIN MRI: 2 small areas of subacute infarction are seen. BRAIN MR ANGIOGRAM: No significant intracranial arterial abnormality is seen. NECK MR ANGIOGRAM: No hemodynamically significant stenosis can be seen involving arteries of the neck. Dictated by: Camron Garcia M.D. on 07/13/2018 at 15:11 Approved by: Camron Garcia M.D. on 07/13/2018 at 15:25
--- NOTE | 2018-07-13 14:34 | PC.NURSE ---
Pt admitted with symptoms of possible CVA. Sometime between 0200 and 0900 this am, her left foot was unable to function as usual where when she stood up the foot dragged and she was unable to take a normal step, Came to ER and was given aspirin. CT scan negative and is now waiting for MRI. Interview sheet filled out. Tele on with [facility] with [facility]. Pt is alert and oriented. Family in room with pt. O2 sats = 95% on RA. Family reports that she coughs at times when eating food. Swallow not yet evaluated.
--- NOTE | 2018-07-13 15:07 | PC.NURSE ---
Pt taken for MRI at this time.
--- NOTE | 2018-07-13 15:45 | PT.IIE ---
Medical History (Last Updated 07/13/18 @ 17:01 by Aazel Simmons DO) CVA (cerebral vascular accident) (Acute) Stroke (Acute) Physical Therapy Inpatient Evaluation/Re-Eval M1 PT/OT-IP Prior Functional Status Start: 07/13/18 16:35 Freq: NEEDED Status: Active Protocol: Document 07/13/18 15:45 AB (Rec: 07/13/18 17:01 AB [id number]) Medical Review Prior Functional Status Medical History Reviewed Yes Communication able to make needs known Mobility and Gait stated that she is modified independent withall mobilities and ambulation using SPC indoors/outdoors. occasionally uses 2 hiking poles for outdoor mobility for long distances. Social History Household Members spouse Living Arrangements House Number of Floors (Floors) Two Floors Number of Stairs To Enter/Railing? has to walk ~ [address]/alley to get to the back door with one step to enter the house has ~ 16 steps with bilateral rails to bedroom level Home Environment High Toilet Walk in Shower Home Equipment Front Wheel Walker Straight Cane Grab Bars Near Toilet Grab Bars In Shower Employment Status Retired Additional Social History Comment spouse stated that he made a heavy stand frame to assist pt with getting up from the bed. M2 PT-IP Current Condition Start: 07/13/18 16:35 Freq: NEEDED Status: Active Protocol: Document 07/13/18 15:45 AB (Rec: 07/13/18 17:01 [id number]) Physical Therapy Current Condition Current Condition Evaluation Date 07/13/18 Treatment Diagnosis CVA; difficulty in walking Onset Date 07/13/18 M3 PT-IP Subjective Start: 07/13/18 16:35 Freq: NEEDED Status: Active Protocol: Document 07/13/18 15:45 AB (Rec: 07/13/18 17:01 AB [id number]) Subjective Physical Therapy Visit Type Type Initial Evaluation Visit Start Time 15:45 Visit Stop Time 16:15 Total Visit Minutes 30 Number of SPECIAL EFFECTS PERSON Visits 0 Physical Therapy Visit Comments Patient Comments pt just came back from MRI procedure and using bedside commode but agreed to do PT Therapy Pain Assessment Pain Present Pain Present Denied Pain M4 PT-IP Mobility and Gait Start: 07/13/18 16:35 Freq: NEEDED Status: Active Protocol: Document 07/13/18 15:45 AB (Rec: 07/13/18 17:01 AB [id number]) PT-Bed Mobility Assessment Supine to Sit Supine to Sit Standby Assistance Sit to Supine Sit to Supine Minimal Assistance 1 Person Assistance PT-Transfer Assessment Sit to and From Stand Sit to and from Stand Minimal Assistance 1 Person Assistance Use of Upper Extremities Equipment Transfer Assistive Device Gait Belt Front Wheeled Walker Orthotic/Prosthetic Devices or Brace: No Gait Assessment Gait Gait Assistance Required: Moderate Assistance 1 Person Assist Distance (Feet) 25 Able to Maintain Weight Bearing Status Yes During Gait Assistive Devices Assistive Device Gait Belt Front Wheeled Walker Orthotic/Prosthetic Devices or Brace: No Gait Deviations General Gait Pattern Antalgic Decreased Stride Length Decreased Feet Clearance Step-to Gait Factors Limiting Gait Function Factors Limiting Gait Function Decreased Activity Tolerance Decreased Strength Poor Balance Poor Safety Awareness Comments Gait Comments pt requiring mod A with ambulation using FWW. presents with unsteady gait requiring assist for stability and weight shifting. noted decrease LLE elevation towards end of ambulation requiring increase cues to shift weight and elevate LLE up. PT-Balance Assessment Sitting Balance and Reactions Static Sitting Balance Ability Good Dynamic Sitting Balance Ability Good Standing Balance and Reactions Static Standing Balance Ability Fair Dynamic Standing Balance Ability Poor Device Used FWW M5 PT-IP Objective Assessments Start: 07/13/18 16:35 Freq: NEEDED Status: Active Protocol: Document 07/13/18 15:45 AB (Rec: 07/13/18 17:01 [id number]) Orientation Orientation/Cognition Level of Alertness Alert Orientation Name Age Birthday Month Date Year Day of Week Place Situation Gross Range of Motion Lower Extremity ROM Assessment Left Impaired Impairments decrease L knee extension of ~ 5-10 degrees Strength Lower Extremity Strength Assessment Bilaterally Impaired Comments Strength Comments RLE 4-/5 LLE: 3+/5 Sensation Assessment Sensation Gross Sensation WNL Muscle Tone Muscle Tone WNL Yes M6 PT-IP Treatment Start: 07/13/18 16:35 Freq: NEEDED Status: Active Protocol: Document 07/13/18 15:45 AB (Rec: 07/13/18 17:01 [id number]) Physical Therapy Treatment Education Education Provided Safety Other Treatments Other Treatment Performed informed pt and spouse regarding pt's current mobility level and level of assistance and d/c recommendation. M7 PT-IP Assessment and Plan Start: 07/13/18 16:35 Freq: NEEDED Status: Active Protocol: Document 07/13/18 15:45 AB (Rec: 07/13/18 17:01 AB [id number]) PT Summary Assessment and Plan Potential Rehabilitation Potential Good Status of Condition at Evaluation Stable Summary Impairments ROM Strength Balance Coordination Bed Mobility Transfers Gait Activity Tolerance Assessment Summary pt requiring mod A with transfers and ambulation with cues. pt will require 24/7 assist at this time. pt may benefit from inpatient rehab or SNF to improve strength and mobility. Goals Bed Mobility Goal Independent Transfer Goal Standby Assistance Front Wheeled Walker Gait Goal Standby Assistance Front Wheel Walker Gait Distance 100 Other Goals up/down 1 steps using FWW CGA up/down 16 steps using bilateral rails CGA Days to Meet Goals 5 Frequency of Treatment Frequency Of Treatment Twice a Day Treatment Plan Physical Therapy Treatment Plan Bed Mobility Training Transfer Training Gait Training Therapeutic Exercise Balance Retraining Discharge Planning Hot or Cold Pack Neuromuscular Re-ed Coordination Retraining Manual Therapy Other Recommendations and Next Treatment ambulation, bed mobility, Focus stair climbing Recommendations To Nursing Amount of Assist Needed 1 Person Assist Discharge Recommendations PT Discharge Recommendations SNF Rehab Acute Rehab Other Discharge Recommendations acute rehab vs SNF
--- NOTE | 2018-07-13 17:05 | P.HP_ITS ---
History of Present Illness Date Patient Seen: 07/13/18 Time Patient Seen: 16:55 Chief complaint: L Leg Weakness Narrative: - THIS IS A VERY PLEASANT 78-YEAR-OLD FEMALE WITH A PAST MEDICAL HISTORY SIGNIFICANT 4 PRIOR STROKE. - PATIENT REPORTED THAT SHE HAD 4 PRIOR STROKES. THE LAST 1 REPORTEDLY WAS IN 2017. - SHE HAS BEEN IN HER USUAL STATE OF HEALTH. HOWEVER THIS MORNING HER REPORTED SEEING HER HAVING PROBLEMS AMBULATING. - SHE REPORTED THAT SHE HAD DIFFICULTY MOVING HER LEFT LOWER EXTREMITIES. SHE ALSO HAD SOME PROBLEM WITH SOME FACIAL DROOPING. - HER SYMPTOMS CONTINUE UNTIL THIS AFTERNOON. SHE STARTED HAVING PROBLEMS WITH THE LEFT SIDE OF HER FACE. - DENIES ANY NUMBNESS OR TINGLING SENSATION. SHE DID REPORT SOME WEAKNESS. - SHE DENIES ANY CHANGE IN HER MENTATION. NO SYNCOPAL OR PRESYNCOPAL EPISODE. NO HEADACHE MIGRAINES. - SHE IS RIGHT-HANDED. SHE USES A CANE TO AMBULATE AT HOME. 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 NO FEVER. NO DIFFICULTY WITH BOWELS OR URINE. - SHE DOES REPORT DIFFICULTY SWALLOWING WHICH IS BEEN ONGOING FOR A WHILE NOW. - NO OTHER COMPLAINTS Patient History Medical History CVA (cerebral vascular accident) (Acute) Stroke (Acute) Family & Social History Family History: Reviewed 07/13/18 by Azael Simmons DO Social History: household members spouse Prior Living Arrangements House Safety & Behavioral: Feels Safe in Current Yes Environment Been Physically Hurt or No Threatened By a Person Suicidal Ideation Description None Tobacco & Substance use: Smoking Status Never smoker alcohol intake current alcohol intake frequency a few times a month Substance Use Type does not use Meds Home Medications Medication Instructions Recorded Confirmed Type atorvastatin [Lipitor] 20 mg PO BEDTIME #0 11/02/16 07/13/18 History clopidogrel [Plavix] 75 mg PO DAILY #0 11/02/16 07/13/18 History aspirin 81 mg PO DAILY 01/10/18 07/13/18 History famotidine 20 mg PO BID 01/10/18 07/13/18 History levothyroxine 1 tab PO MOWEFR 01/10/18 07/13/18 History levothyroxine 1 tab PO SUTUTHSA 01/10/18 07/13/18 History losartan 100 mg PO DAILY 01/10/18 07/13/18 History venlafaxine 1 cap PO QPM 01/10/18 07/13/18 History cholecalciferol (vitamin D3) 400 unit PO DAILY 07/13/18 07/13/18 History [Vitamin D3] cyanocobalamin (vitamin B-12) 1 dose IM Q2W 07/13/18 07/13/18 History Allergies Allergy/AdvReac Type Severity Reaction Status Date / Time Penicillins [PENICILLINS] Allergy Severe LESIONS IN Verified 07/13/18 10:34 HER MOUTH ciprofloxacin [CIPROFLOXACIN] Allergy Intermediate tongue Verified 07/13/18 10: 34 inflammation wheat [WHEAT] Allergy Unknown ABD PAIN Verified 07/13/18 10:34 Review of Systems Review of Systems All systems reviewed & are unremarkable except as noted in HPI and below Exam Vital Signs (past 8 hours): - 07/13/18 10:27 07/13/18 11:41 07/13/18 12:46 Temperature 98.3 F Pulse Rate 79 70 73 Respiratory Rate 20 15 27 H Blood Pressure 179/80 H Blood Pressure [Left Arm] 151/79 H 158/76 H Pulse Oximetry 95 97 95 07/13/18 13:06 07/13/18 13:14 07/13/18 14:03 Temperature 98.7 F Pulse Rate 70 67 68 Respiratory Rate 23 15 16 Blood Pressure 126/82 144/85 H Blood Pressure [Left Arm] 126/82 Pulse Oximetry 93 96 95 07/13/18 16:41 Temperature 99.2 F Pulse Rate 70 Respiratory Rate 18 Blood Pressure 142/86 H Blood Pressure [Left Arm] Pulse Oximetry 92 Oxygen Delivery Method Room Air Narrative Exam Narrative: NO ACUTE DISTRESS. PATIENT IS ALERT ORIENTED X3. VITAL SIGNS STABLE HEAD ATRAUMATIC NORMOCEPHALIC NECK : SUPPLE WITHOUT ADENOPATHY NO CAROTID BRUITS EYE: EOMI, PERRLA, NORMAL CONJUNCTIVA; NO JAUNDICE CHEST: REGULAR RATE. NO RUBS. PMI IS NON DISPLACED. NO MURMURS; NORMAL S1- S2 PULMONARY: DECREASED BS OVER THE BASES. MILD BIBASILAR CRACKLES NOTED; NO INCREASED DULLNESS TO PERCUSSION; NO WHEEZING ABDOMEN: SOFT. NONTENDER. NONDISTENDED. BOWEL SOUNDS ARE PRESENT IN ALL 4 QUADRANTS. NO MASS. EXTREMITIES: NO EDEMA.. NO CYANOSIS CLUBBING NOTED. NEURO: DROOPY FACE NOTED ON THE LEFT; THE REMAINING CRANIAL NERVE APPEARED TO BE INTACT; ABLE TO MOVE ALL EXTREMITIES MSK: NORMAL RANGE OF MOTION FOR AGE. NO JOINT EFFUSION. SKIN: NORMAL FOR ETHNICITY; NO ECCHYMOSIS. NO LESION. GOOD TURGOR.; NO RASHES : NORMAL EXTERNAL GENITALIA. PSYCH : APPROPRIATE MOOD AND AFFECT. ALERT AWAKE ORIENTED X3 Objective Labs Result Diagrams: 07/13/18 10:15 07/13/18 10:15 Labs: Laboratory Results - last 24 hr 07/13/18 07/13/18 07/13/18 10:15 10:15 10:15 WBC 7.0 RBC 4.61 Hgb 13.2 Hct 38.8 MCV 84.3 MCH 28.6 MCHC 33.9 RDW 15.7 H Plt Count 572 H Neut % (Auto) 64.8 Lymph % (Auto) 22.9 L [place] % (Auto) 7.4 Eos % (Auto) 3.6 Baso % (Auto) 1.3 Neut # (Auto) 4500 PT 11.4 INR 1.0 APTT 31 D Sodium 143 Potassium 3.6 Chloride 103 Carbon Dioxide 27 BUN 18 H Creatinine 0.70 Estimated GFR > 60.0 BUN/Creatinine Ratio 25.7 H Glucose 91 Calcium 9.0 Troponin I < 0.012 Nasal Screen MRSA (PCR) 07/13/18 13:50 WBC RBC Hgb Hct MCV MCH MCHC RDW Plt Count Neut % (Auto) Lymph % (Auto) [place] % (Auto) Eos % (Auto) Baso % (Auto) Neut # (Auto) PT INR APTT Sodium Potassium Chloride Carbon Dioxide BUN Creatinine Estimated GFR BUN/Creatinine Ratio Glucose Calcium Troponin I Nasal Screen MRSA (PCR) Negative for mrsa Assessment & Plan Plan: Assessment/Plan Narrative: IMPRESSION AND PLAN POSSIBLE ACUTE VERSUS SUBACUTE CVA. THIS WAS A NOTICEABLE ON THE MRI. THERE IS NO BLEED NOTED IN THE CT SCAN. THIS IS MOST LIKELY ISCHEMIC IN NATURE. PATIENT AT THIS POINT THAT FAILED ASPIRIN AND PLAVIX THERAPY. THOSE MIGHT NEED TO BE SUBSTITUTED FOR DIFFERENT AGENTS; WE WILL CHECK LIPIDS. NEURO CHECK WILL BE ORDERED Q 4; FALL AND ASPIRATION PRECAUTIONS ; PT OT WILL BE ORDERED; WE WILL GET AN ECHOCARDIOGRAM. CTA OF THE NECK AND HEAD REVEALED NO SIGNIFICANT CAROTID ARTERY STENOSIS. MONITOR CLOSELY HYPERTENSION. 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 WE ARE NOT SURE IF THIS IS CONTRIBUTING TO HER RECURRING STROKES; WE WILL MONITOR FOR NOW. DURATION OF STAY SHOULD BE BETWEEN 2-4 DAYS TIME SPENT 45 MINS Quality VTE Deep Vein Thrombosis/Pulmonary Embolism Present on Admission: No
[2018-07-13] MEDS: ASPIRIN/DIPYRIDAMOLE 200/25 CAP 1 EACH PO (21:07)
[2018-07-13] MEDS: SODIUM CHLORIDE 0.9% FLUSH 10 ML IV (21:07)
[2018-07-13] MEDS: ATORVASTATIN 20 MG TABLET PO (21:08)
[2018-07-13] MEDS: VENLAFAXINE ER 37.5 MG CAP PO (21:13)
--- NOTE | 2018-07-13 22:20 | PC.NURSE ---
shyam note pt denies numbness or tingling to legs. Strength is equal bilaterally. SBA to BSC for void.
[2018-07-14] VITALS (10 sets, daily range): BP systolic 108–188; BP diastolic 65–100; PULSE 61–82; RESP 15–18; TEMP 36.3–37.4; O2SAT 92–96
--- NOTE | 2018-07-14 01:46 | PC.NURSE ---
Explained risks and benefits of SCDs and pt still refused.
[2018-07-14 05:01] LABS: Add Manual Diff / Slide Review NO; Eosinophils Percent Auto 1.9 % (2-4); Hemoglobin 12.1 g/dL (12.0-16.0); Lymphocytes Percent Auto 14.7 % (25-40); Mean Corpuscular HGB Conc 33.7 % (30-36); Mean Corpuscular Hemoglobin 28.2 PG (26-34); Mean Corpuscular Volume 83.9 fL (80-100); Monocytes Percent Auto 5.2 % (3-14); Neutrophils Absolute Auto 6700 /uL (1500-7000); Neutrophils Percent Auto 77.2 % (50-75); Platelet Count 507 X10^3/uL (150-400); Red Blood Cell Count 4.29 X10^6/uL (4.0-5.2); Red Cell Distribution Width 15.9 % (11.6-14.8); White Blood Cell Count 8.6 X10^3/uL (4.5-11.0)
[2018-07-14] MEDS: PANTOPRAZOLE 20 MG TABLET PO (05:14)
[2018-07-14] MEDS: LEVOTHYROXINE 88 MCG TABLET PO (05:14)
[2018-07-14 05:15] LABS: Alanine Aminotransferase 31 IU/L (9-52); Albumin 3.7 g/dL (3.5-5.0); Albumin Globulin Ratio 1.2 (1.0-2.8); Alkaline Phosphatase 101 U/L (38-126); Aspartate Aminotransferase 34 IU/L (14-36); Bilirubin Total 0.5 mg/dL (0.2-1.3); Blood Urea Nitrogen 15 mg/dL (7-17); Calcium 8.7 mg/dL (8.4-10.2); Carbon Dioxide 25 mmol/L (22-32); Chloride 103 mmol/L (98-107); Cholesterol 154 mg/dL (140-199); Estimated Glomerular Filt Rate > 60.0 mL/min (>60); Globulin 3.1 g/dL (1.7-4.1); Glucose 104 mg/dL (80-110); HDL Cholesterol 36 mg/dL (40-60); HEMOLYSIS < 15 (0-50); LDL Cholesterol Calculated 88 mg/dL (<100); Phosphorous 3.9 mg/dL (2.8-4.1); Potassium 3.5 mmol/L (3.4-5.1); Sodium 139 mmol/L (137-145); Total Protein 6.8 g/dL (6.3-8.2); Triglycerides 148 mg/dL (35-150)
[2018-07-14] MEDS: ENOXAPARIN 40 MG/0.4 ML SYRINGE SUBCUT (08:31)
[2018-07-14] MEDS: ASPIRIN/DIPYRIDAMOLE 200/25 CAP 1 EACH PO ×2 (08:31→21:33)
[2018-07-14] MEDS: SODIUM CHLORIDE 0.9% FLUSH 10 ML IV ×4 (08:31→23:21)
[2018-07-14] MEDS: CHOLECALCIFEROL (VITAMIN D3) 400 UNIT TABLET PO (08:31)
[2018-07-14] MEDS: ACETAMINOPHEN 325 MG TABLET 650 MG PO ×2 (08:32→22:52)
--- NOTE | 2018-07-14 09:21 | CM.DANOTE ---
Addendum entered by Raya Junior LPN 07/14/18 13:13: BLUNGER Luci reported after her session today with pt that she is doing well. She says she is a current pt at the OUTPT PT clinic and her recommendation is that pt continue this at d/c. Will continue to follow. OT will see pt today and plans to incorporate pt's into the session. Original Note: Discharge Planning/Care Management DCP: assessment: case received, EMR reviewed and met with pt. Introduced self and role. Pt is a 78 year old female who admitted yesterday afternoon to care of hospitalist team. PCP: NANDO Felipe/IIIra Payer: Medicare and [facility] INPT admission status: confirmed by UR STAN Banks. 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 I always went home. Assured her that the DCP team would follow closely to assist with d/c issues and options as more is know re how this CVA has affected her. PT eval is noted. Confirmed with OT Roro that she is seeing pt today. Review of hx at shows pt is being seen by Dr. Banks at the wound care clinic/no specifics notes available in EMR No recent admissions to but ER visit December 2017 with fall and head injury. ER visit October 2016: fall with head injury Advanced directive, confirm from FAMILY Start: 07/13/18 14:32 Freq: Q24H Status: Active Protocol: Document 07/13/18 14:38 AMM (Rec: 07/13/18 14:38 AMM [id number]) Advance Directive, confirm on record Time 14:38 Person contacted spouse Copy received No CM Discharge Assessment Start: 07/14/18 09:18 Freq: Status: Active Protocol: Document 07/14/18 09:18 ITV (Rec: 07/14/18 09:21 ITV [id number]) Discharge Planning Assessment Advance Directives? Yes History Provided By Patient Medical Record Has Patient been admitted in last 30 No days? Prior Living Arrangements House Comment multiple stairs. refer to PT eval of yesterday Household Members spouse Is patient alert and oriented? Yes: alert, appears oriented during brief conversation but: ? Comment pt says she has had HH years ago. unsure of agency Whiteboard Updated in Patient Room with Yes name and ext. # of Nutritionalist Review Status In Process Next Review Type Continued Stay Review
--- NOTE | 2018-07-14 09:40 | OT.IP.EVAL ---
Past Medical History (Last Updated 07/13/18 @ 17:01 by Azael Simmons DO) CVA (cerebral vascular accident) (Acute) Stroke (Acute) Occupational Therapy Inpatient Evaluation/Re-Eval M1 PT/OT-IP Prior Functional Status Start: 07/13/18 16:35 Freq: NEEDED Status: Active Protocol: Document 07/14/18 09:40 PJM (Rec: 07/14/18 15:50 PJM [id number]) Medical Review Prior Functional Status Medical History Reviewed Yes Diet/Fluid Consistency Regular Communication able to make needs known, pt reports previous strokes made speech difficult temporarily; son reports pt's speech becomes mildly slurred when she is tired Mobility and Gait stated that she is modified independent with all mobilities and ambulation using SPC indoors/outdoors. occasionally uses 2 hiking poles for outdoor mobility for long distances. Activities of Daily Living and IADL's Pt had assist with socks and hooking bra from . Pt was independent with all other self care including standing to shower. available 06/02 and does all IADLS, driving. Prior Functional Level (Other details) Supportive son lives locally. Social History Household Members spouse Living Arrangements House Number of Floors (Floors) Two Floors Number of Stairs To Enter/Railing? pt has to walk ~60 ft on gravel to access back door with 1 step to enter. Pt has 16 stairs up to bedroom/ bathroom level of home Home Environment High Toilet Walk in Shower Home Equipment Front Wheel Walker Straight Cane Grab Bars Near Toilet Grab Bars In Shower Employment Status Retired Additional Social History Comment Pt used transport chair for long distances on recent trip to [facility]. Pt has hand made grab bar next to bed which she uses to pull to standing. Pt has FWW but was not using it. Pt does not have shower chair. M2 OT-IP Current Condition Start: 07/14/18 15:18 Freq: Status: Active Protocol: Document 07/14/18 09:40 PJM (Rec: 07/14/18 15:50 PJM [id number]) Occupational Therapy Current Condition Current Condition Evaluation Date 07/14/18 Treatment Diagnosis decreased self care, functional mobility after stroke w/LLE weakness Diagnosis Onset Date 07/13/18 Post Operative Precautions Other Precautions fall risk, LLE weakness M3 OT- IP Subjective and Pain Start: 07/14/18 15:18 Freq: Status: Active Protocol: Document 07/14/18 09:40 PJM (Rec: 07/14/18 15:50 PJM [id number]) OT- Subjective Occupational Therapy Visit Type Type Initial Evaluation Visit Start Time 09:08 Visit Stop Time 09:40 Total Visit Minutes 32 Notes split session as /son arrived for additional pt/ family education [id number] Occupational Therapy Visit Comments Patient Comments My leg is stronger today and I walked to the bathroom with the nurse. Patient/Caregiver Goals to go home tomorrow OT Pain Assessment Pain When Pain Assessed After Treatment Pain Present Pain Present Denied Pain M4 OT- IP ADL's Start: 07/14/18 15:18 Freq: Status: Active Protocol: Document 07/14/18 09:40 PJM (Rec: 07/14/18 15:50 PJM [id number]) OT ADL-Grooming General Evaluation Grooming Ability Standby Assistance Areas Needing Assistance Retrieving/Set-up of Grooming Items Face Washing Comments OT Grooming Comments seated in chair OT ADL-Oral Care General Eval Oral Care Ability Standby Assistance Areas of Assistance Retrieving/Set-Up of Items Devices Oral Care Devices Toothbrush Comments Oral Care Comments seated in chair OT ADL-Dressing General Eval Lower Body Dressing Ability Standby Assistance Areas Needing Assistance Underpants/Brief Socks Comments OT Dressing Comments Pt able to reach B feet to don and doff socks seated in chair. Educated pt/ to allow pt to be as independent as possible with dressing tasks to maintain strength and flexibility. OT ADL-Toileting General Evaluation Toileting Ability Standby Assistance Areas Needing Assistance Manage Clothing Perform Perineal Hygiene Devices Toileting Assistive Devices Grab Bars Raised Toilet Seat OT ADL-Bathing Comments OT Bathing Comments did not occur; provided education to pt/ re: shower seat options and resources M5 OT- IP IADL's Start: 07/14/18 15:18 Freq: Status: Active Protocol: Document 07/14/18 09:40 PJM (Rec: 07/14/18 15:50 PJM [id number]) OT-Instrumental Activities of Daily Living Deficits IADL Deficits Identified Deficits Home Safety Awareness Awareness of Need for Assistance at Home Good Awareness Ability to Problem Solve Emergency Able to Problem Solve Situations Medication Management Medication Management Caregiver Provides Supervision Medication Management Comments assists with all IADLS Money Management Money Management Caregiver Provides Assistance Money Management Comments assists with all IADLS Meal Preparation Meal Preparation Caregiver Provides Assist Meal Preparation Comments assists with all IADLS Electric Switch Tester Electric Switch Tester Caregiver Provides Assist Electric Switch Tester Comments assists with all IADLS Driving Driving Caregiver Provides Assist Driving Comments pt no longer drives; provides transport M6 OT- IP Functional Cognition Start: 07/14/18 15:18 Freq: Status: Active Protocol: Document 07/14/18 09:40 PJM (Rec: 07/14/18 15:50 PJM [id number]) Cognitive Factors Limiting Selfcare Function Cognitive Ability Level of Alertness Alert Patient Orientation Name Month Date Year Place Situation Attention Span Ability Capable of Focused Attention Capable of Sustained Attention Ability to Follow Commands Able to Follow One Step Commands Problem Solving Ability Needs Assist to Identify Solutions Cognitive Comments Cognitive Assessment Comments Pt alert and oriented with flat affect, but pleasant and cooperative with good effort and participation. Mild memory deficits related to past medical history. OT- Vision and Hearing OT- Hearing Assessment OT- Hearing Assessment WFL OT- Vision Assessment Visual Acuity WFL Glasses All The Time Visual Attentiveness WFL Visual [place] WFL Visual Spacial Neglect Not Applicable Vision Assessment Comments No new vision deficits identified. M7 OT- IP Mobility and Balance Start: 07/14/18 15:18 Freq: Status: Active Protocol: Document 07/14/18 09:40 PJM (Rec: 07/14/18 15:50 PJM [id number]) OT-Transfer Assessment Sit to and From Stand Sit to and from Stand Minimal Assistance Transfers Transfer Ability Contact Guard Assistance Technique Transfer Destination Car Chair Shower Stall Toilet Transfer Technique Stand Step Pivot Comments Mobility Comments Pt needs verbal cues for hand placement for sit to stand. Provided education to pt/ re: shower stall transfers with shower seat, car transfers, use of handy bar to assist with in/out of car, body mechanics for sit to stand, optimal seat heights and chair selection to maximize independence with sit to stand. Pt tends to pull up on 's arm when coming to stand at home. OT- Gait Assessment Gait Gait Assistance Required: Contact Guard Assist Distance (Feet) 30 Assistive Devices Assistive Device Gait Belt Front Wheeled Walker Comments Gait Ability Comments Pt demonstrating improved independence with gait, increased LLE strength with no buckling today and increased distance this AM compared to P .T. note of yesterday. OT- Balance Assessment Sitting Balance and Reactions Static Sitting Balance Ability Good Dynamic Sitting Balance Ability Good Standing Balance and Reactions Static Standing Balance Ability Good Dynamic Standing Balance Ability Fair Comments Other Balance Tests/Deviations/Treatment with FWW : M8 OT- IP Objective Assessments Start: 07/14/18 15:18 Freq: Status: Active Protocol: Document 07/14/18 09:40 PJM (Rec: 07/14/18 15:50 PJM [id number]) OT Gross Range of Motion Upper Extremity Range of Motion Assessment Within Functional Limits ROM Impairments no focal LUE deficits noted OT Strength Upper Extremity Strength Assessment Within Functional Limits Hand Registered Dental Assistant Rda Strength Hand Dominance Right Comments Strength Comments no focal LUE strength deficits noted OT- Coordination Assessment Upper Extremity Finger to Nose Test Left UE Impaired Finger Tapping Test Left UE Impaired Comments Coordination Comments LUE rapid alternating movements mildly slowed compared to right, but this does not interfere with functional use of non dominant L hand during self care tasks . OT-Muscle Tone Assessment Muscle Tone WNL Yes OT Sensation Assessment Comments Summary Comments BUE WNL, no LUE sensory deficits noted Edema Edema Absent M9 OT- IP Assessment and Plan Start: 07/14/18 15:18 Freq: Status: Active Protocol: Document 07/14/18 09:40 PJM (Rec: 07/14/18 15:50 PJM [id number]) OT Summary Assessment and Plan Potential Rehabilitation Potential Good Analytic Complexity at Evaluation Low Summary OT Impairments Balance Functional Mobility Grooming Dressing Toileting Bathing Toilet Transfers Shower Transfers Assessment Summary Low complexity OT assessment completed with no new deficits identified in vision or LUE/ hand sensorimotor function. Pt 's primary deficit is LLE weakness which appears much improved today with better functional mobility noted compared to initial P.T. assessment. Pt does have mild performance deficits in standing grooming and bathroom transfers. Anticipate pt will be able to d/c home with 24 hr assist from supportive when medically stable and clears P.T. Note that pt was receiving out pt P.T. prior to admit and would like to resume this after d/c. Pt will benefit from OT services here to address the goals below. Goals Grooming Goal Standby Assistance Dressing Goal Standby Assistance Toileting Goal Independent Bathing Goal Standby Assistance Grab Bars Hand Held Shower Sprayer Toilet Transfer Goal Standby Assistance Shower Transfer Goal Contact Guard Assistance Walk-in Shower Shower Chair Grab Bars Patient/Caregiver Education Goal Demonstrate Energy Conservation and Pacing Caregiver Independent Assisting Patient OT-Other Goals Grooming to be done standing at sink for 5+ min with no loss of balance and good safety awareness. Dressing to be done with street clothes including shoes. Days to Meet Goals 3 Frequency of Treatment Frequency Of Treatment Once a Day Treatment Plan OT Treatment Plan ADL Training Functional Mobility Patient/Family Education Discharge Planning Discharge Recommendations OT Discharge Recommendations Home with 24 Assist Home Equipment Needs Recommend shower seat
[2018-07-14] MEDS: ONDANSETRON 4 MG/2 ML INJ IV ×3 (10:11→23:20)
--- NOTE | 2018-07-14 11:10 | PT.IPTN ---
Physical Therapy Treatment Note M2 PT-IP Current Condition Start: 07/13/18 16:35 Freq: NEEDED Status: Active Protocol: Document 07/13/18 15:45 AB (Rec: 07/13/18 17:01 AB [id number]) Physical Therapy Current Condition Current Condition Evaluation Date 07/13/18 Treatment Diagnosis CVA; difficulty in walking Onset Date 07/13/18 M3 PT-IP Subjective Start: 07/13/18 16:35 Freq: NEEDED Status: Active Protocol: Document 07/14/18 11:10 GGD (Rec: 07/14/18 11:35 GGD [email or web address]) Subjective Physical Therapy Visit Type Type Treatment Note Visit Start Time 10:55 Visit Stop Time 11:10 Total Visit Minutes 15 Number of HAND PRESSER Visits 1 Physical Therapy Visit Comments Patient Comments Pt states she will to work with therapy. M4 PT-IP Mobility and Gait Start: 07/13/18 16:35 Freq: NEEDED Status: Active Protocol: Document 07/14/18 11:10 GGD (Rec: 07/14/18 11:35 GGD [id number]) PT-Bed Mobility Assessment Supine to Sit Supine to Sit Contact Guard Assistance PT-Transfer Assessment Sit to and From Stand Sit to and from Stand Minimal Assistance 1 Person Assistance Use of Upper Extremities Equipment Transfer Assistive Device Gait Belt Front Wheeled Walker Orthotic/Prosthetic Devices or Brace: No Gait Assessment Gait Gait Assistance Required: Contact Guard Assist Distance (Feet) 100 Able to Maintain Weight Bearing Status Yes During Gait Assistive Devices Assistive Device Gait Belt Front Wheeled Walker Orthotic/Prosthetic Devices or Brace: No Gait Deviations General Gait Pattern Antalgic Decreased Stride Length Decreased Feet Clearance Step-to Gait Factors Limiting Gait Function Factors Limiting Gait Function Decreased Activity Tolerance Decreased Strength Poor Balance Poor Safety Awareness M5 PT-IP Objective Assessments Start: 07/13/18 16:35 Freq: NEEDED Status: Active Protocol: Document 07/13/18 15:45 AB (Rec: 07/13/18 17:01 AB [id number]) Orientation Orientation/Cognition Level of Alertness Alert Orientation Name Age Birthday Month Date Year Day of Week Place Situation Gross Range of Motion Lower Extremity ROM Assessment Left Impaired Impairments decrease L knee extension of ~ 5-10 degrees Strength Lower Extremity Strength Assessment Bilaterally Impaired Comments Strength Comments RLE 4-/5 LLE: 3+/5 Sensation Assessment Sensation Gross Sensation WNL Muscle Tone Muscle Tone WNL Yes M6 PT-IP Treatment Start: 07/13/18 16:35 Freq: NEEDED Status: Active Protocol: Document 07/13/18 15:45 AB (Rec: 07/13/18 17:01 AB [id number]) Physical Therapy Treatment Education Education Provided Safety Other Treatments Other Treatment Performed informed pt and spouse regarding pt's current mobility level and level of assistance and d/c recommendation. M7 PT-IP Assessment and Plan Start: 07/13/18 16:35 Freq: NEEDED Status: Active Protocol: Document 07/14/18 11:10 GGD (Rec: 07/14/18 11:35 GGD [id number]) PT Summary Assessment and Plan Summary Assessment Summary Pt improving with mobility. She needed min A for sit to stand from bed. She was able to progress gait distance and pace with FWW. She be had mild unsteadiness with gait, but no LOB. She will need FWW for safe ambulation. Frequency of Treatment Frequency Of Treatment Twice a Day Treatment Plan Other Recommendations and Next Treatment ambulation, bed mobility, Focus stair climbing Recommendations To Nursing Amount of Assist Needed 1 Person Assist Discharge Recommendations PT Discharge Recommendations Home with Assistance Outpatient PT
--- NOTE | 2018-07-14 11:56 | PM.PN.1 ---
Subjective Date Patient Seen: 07/14/18 Time Patient Seen: 11:56 Interval history: STILL WITH FACIAL DROOPING NO CP/SOB NO SYNCOPE OR PRE-SYNCOPE NO SIGNIFICANT ISSUES OVERNIGHT Exam Vital Signs (past 8 hours): - 07/14/18 05:07 07/14/18 08:00 07/14/18 08:55 Temperature 98 F 97.4 F L Pulse Rate 68 61 Respiratory Rate 16 16 Blood Pressure 131/77 122/65 Pulse Oximetry 92 96 94 Oxygen Delivery Method Room Air Oxygen Flow Rate 0 Narrative Exam Narrative: NO ACUTE DISTRESS. PATIENT IS ALERT ORIENTED X3. VITAL SIGNS STABLE HEAD ATRAUMATIC NORMOCEPHALIC NECK : SUPPLE WITHOUT ADENOPATHY NO CAROTID BRUITS EYE: EOMI, PERRLA, NORMAL CONJUNCTIVA; NO JAUNDICE CHEST: REGULAR RATE. NO RUBS. PMI IS NON DISPLACED. NO MURMURS; NORMAL S1-S2 PULMONARY: DECREASED BS OVER THE BASES. MILD BIBASILAR CRACKLES NOTED; NO INCREASED DULLNESS TO PERCUSSION; NO WHEEZING ABDOMEN: SOFT. NONTENDER. NONDISTENDED. BOWEL SOUNDS ARE PRESENT IN ALL 4 QUADRANTS. NO MASS. EXTREMITIES: NO EDEMA.. NO CYANOSIS CLUBBING NOTED. NEURO: DROOPY FACE NOTED ON THE LEFT; THE REMAINING CRANIAL NERVE APPEARED TO BE INTACT; ABLE TO MOVE ALL EXTREMITIES MSK: NORMAL RANGE OF MOTION FOR AGE. NO JOINT EFFUSION. SKIN: NORMAL FOR ETHNICITY; NO ECCHYMOSIS. NO LESION. GOOD TURGOR.; NO RASHES : NORMAL EXTERNAL GENITALIA. PSYCH : APPROPRIATE MOOD AND AFFECT. ALERT AWAKE ORIENTED X3 Objective Labs Result Diagrams: 07/14/18 04:39 07/14/18 04:39 Labs: Laboratory Results - last 24 hr 07/13/18 07/14/18 07/14/18 13:50 04:39 04:39 WBC 8.6 RBC 4.29 Hgb 12.1 Hct 36.0 MCV 83.9 MCH 28.2 MCHC 33.7 RDW 15.9 H Plt Count 507 H Neut % (Auto) 77.2 H Lymph % (Auto) 14.7 L [place] % (Auto) 5.2 Eos % (Auto) 1.9 L Baso % (Auto) 1.0 Neut # (Auto) 6700 Sodium 139 Potassium 3.5 Chloride 103 Carbon Dioxide 25 BUN 15 Creatinine 0.60 Estimated GFR > 60.0 BUN/Creatinine Ratio 25.0 H Glucose 104 Calcium 8.7 Phosphorus 3.9 Total Bilirubin 0.5 AST 34 ALT 31 Alkaline Phosphatase 101 Total Protein 6.8 Albumin 3.7 Globulin 3.1 Albumin/Globulin Ratio 1.2 Triglycerides 148 Cholesterol 154 LDL Cholesterol, Calc 88 HDL Cholesterol 36 L Nasal Screen MRSA (PCR) Negative for mrsa Assessment & Plan Plan: Assessment/Plan Narrative: IMPRESSION AND PLAN POSSIBLE SUBACUTE ISCHEMIC CVA. PER MRI. NO BRAIN HEMORRHAGE. STARTED ON AGGRENOX; LDL OF 88; WILL ADD ADDITIONAL ANTILIPID AGENTS TO TRY AND ACHIEVE THE RECOMMENDED LEVEL OF <70. FISHOIL/NIACIN AND FENOFIBRATE ORDERED; NEURO CHECK WILL BE ORDERED Q 4 FOR ANOTHER 24HRS; FALL AND ASPIRATION PRECAUTIONS; PT AND OT WILL BE ORDERED; AWAITING ECHOCARDIOGRAM. CTA OF THE NECK AND HEAD REVEALED NO SIGNIFICANT CAROTID ARTERY STENOSIS. MONITOR CLOSELY HYPERTENSION. 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 UNCLEAR OF THE CAUSE. THIS IS BEING FOLLOWED BY [facility] OUTPATIENT; WE WILL MONITOR FOR NOW. SHE DC IN NEXT 48 HRS IF STABLE HOME WITH VS SNF Quality VTE Deep Vein Thrombosis/Pulmonary Embolism Present on Admission: No
[2018-07-14] MEDS: LOSARTAN 50 MG TABLET 100 MG PO (13:47)
[2018-07-14] MEDS: FENOFIBRATE 48 MG TABLET PO (13:47)
--- NOTE | 2018-07-14 15:15 | PT.IPTN ---
Physical Therapy Treatment Note M2 PT-IP Current Condition Start: 07/13/18 16:35 Freq: NEEDED Status: Active Protocol: Document 07/13/18 15:45 AB (Rec: 07/13/18 17:01 AB [id number]) Physical Therapy Current Condition Current Condition Evaluation Date 07/13/18 Treatment Diagnosis CVA; difficulty in walking Onset Date 07/13/18 M3 PT-IP Subjective Start: 07/13/18 16:35 Freq: NEEDED Status: Active Protocol: Document 07/14/18 15:15 GGD (Rec: 07/14/18 15:50 GGD [email or web address]) Subjective Physical Therapy Visit Type Type Treatment Note Visit Start Time 14:45 Visit Stop Time 15:15 Total Visit Minutes [address] OPERATIONS CLERK Visits 2 Physical Therapy Visit Comments Patient Comments Pt willing to work with PT. M4 PT-IP Mobility and Gait Start: 07/13/18 16:35 Freq: NEEDED Status: Active Protocol: Document 07/14/18 15:15 GGD (Rec: 07/14/18 15:50 GGD [email or web address]) PT-Bed Mobility Assessment Supine to Sit Supine to Sit Contact Guard Assistance Sit to Supine Sit to Supine Minimal Assistance 1 Person Assistance PT-Transfer Assessment Sit to and From Stand Sit to and from Stand Minimal Assistance 1 Person Assistance Use of Upper Extremities Equipment Transfer Assistive Device Gait Belt Front Wheeled Walker Orthotic/Prosthetic Devices or Brace: No Transfers Transfer Destination Bed Wheelchair Transfer Ability Level of Assist Minimal Assistance 1 Person Assistance Use of Upper Extremities Gait Assessment Gait Gait Assistance Required: Standby Assistance Distance (Feet) 130 Able to Maintain Weight Bearing Status Yes During Gait Assistive Devices Assistive Device Gait Belt Front Wheeled Walker Orthotic/Prosthetic Devices or Brace: No Gait Deviations General Gait Pattern Antalgic Decreased Stride Length Decreased Feet Clearance Step-to Gait Factors Limiting Gait Function Factors Limiting Gait Function Decreased Activity Tolerance Decreased Strength Poor Balance Poor Safety Awareness Stair Climbing Assessment Evaluation Level of Assist On Stairs Standby Assistance Contact Guard Assistance Devices Stair Climbing Assistive Devices Front Wheel Walker Left Railing Right Railing Technique/Endurance Stair Climbing Direction Ascend and Descend Stair Climbing Technique Step to Step Number of Steps Climbed 3 Query Text: Stair Climbing Set # Repetitions (reps) 3 Comments Stair Climbing Comments single step stair training with FWW x 1, 3 step stair training with B rails x 3. M5 PT-IP Objective Assessments Start: 07/13/18 16:35 Freq: NEEDED Status: Active Protocol: Document 07/13/18 15:45 AB (Rec: 07/13/18 17:01 AB [id number]) Orientation Orientation/Cognition Level of Alertness Alert Orientation Name Age Birthday Month Date Year Day of Week Place Situation Gross Range of Motion Lower Extremity ROM Assessment Left Impaired Impairments decrease L knee extension of ~ 5-10 degrees Strength Lower Extremity Strength Assessment Bilaterally Impaired Comments Strength Comments RLE 4-/5 LLE: 3+/5 Sensation Assessment Sensation Gross Sensation WNL Muscle Tone Muscle Tone WNL Yes M6 PT-IP Treatment Start: 07/13/18 16:35 Freq: NEEDED Status: Active Protocol: Document 07/13/18 15:45 AB (Rec: 07/13/18 17:01 AB [id number]) Physical Therapy Treatment Education Education Provided Safety Other Treatments Other Treatment Performed informed pt and spouse regarding pt's current mobility level and level of assistance and d/c recommendation. M7 PT-IP Assessment and Plan Start: 07/13/18 16:35 Freq: NEEDED Status: Active Protocol: Document 07/14/18 15:15 GGD (Rec: 07/14/18 15:50 GGD [id number]) PT Summary Assessment and Plan Summary Assessment Summary Pt able to progress gait distance and improved stability. She was safe and stable with gait and stair mobility. She need mod cues for sit to stand technique and min A. She safe for home D/C when medically stable. Treatment Plan Other Recommendations and Next Treatment ambulation, bed mobility, sit Focus to stand Recommendations To Nursing Amount of Assist Needed 1 Person Assist Discharge Recommendations PT Discharge Recommendations Home with Assistance Outpatient PT
--- NOTE | 2018-07-14 15:38 | ST.IPIE ---
Care Team Visit Care Team Role Provider Type Conchita Felipe PA-C Family Provider [employer] Primary Care Provider Specialty: Internal Medicine Address: [address] [place] [address], [id number] Email: Comfort Guzmán DO Emergency Provider Physician Specialty: Emergency Medicine Address: [address] [place] [address] Email: Azael Simmons DO Admit Provider Physician Attending Provider Specialty: Internal Medicine Address: [address] [place] [address], [id number] Email: Past Medical History (Last Updated 07/13/18 @ 17:01 by Azael Simmons DO) CVA (cerebral vascular accident) (Acute Medical) Stroke (Acute Medical) ST IP Initial Evaulation Report [employer] Clinical Swallow Evaluation Start: 07/14/18 15:02 Freq: Status: Active Protocol: Document 07/14/18 15:02 BRENDEN (Rec: 07/14/18 15:38 BRENDEN [id number]) Clinical Swallow Evaluation Session Time Visit Start Time 13:30 Visit Stop Time 14:30 Total Visit Minutes 60 Visit Information Visit Number Initial Evaluation Referral Referring Physician Dr. Simmons Reason for Referral Complaints of swallow difficulty Setting Assessment Location Acute Care Visit Type Note Type Initial Evaluation Next Note Type Next Note Type Treatment Note Patient Information Identification Type Name Other History This 78-yr-old female pt is familiar to this [employer] from previous outpatient dysphagia therapy. On the morning of , the pt experienced difficulty ambulating at home and left side weakness, including difficulty moving LLE and L) facial droop. The pt denied changes in mentation . 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 She reported to this [employer] a hx of hiatal hernia and described occasional coughing with oral that often results in vomiting during meals in order to clear. Subjective Observations The pt was awake, alert and sitting up in bed. She had just returned from using the bathroom, and her and son were both present at start of the evaluation. The pt recognized this [employer] upon introduction and provided history of current events and recent swallow difficulties, which she stated have worsened in recent months. She stated, I thought about you and coming to see you [for treatment] and reported the most difficulty when eating dry foods. Per Nsg and pt report, the pt tolerated breakfast well but did have a vomiting episode after working with OT. The pt felt this was not related to swallow difficulties or with her breakfast meal consumption . Evaluation Liquids Trialed Ice Chips Thin Solids Trialed Puree Dysphagia Advanced Administration Type Tea Spoon Cup Single Sip Cup Consecutive Sips Straw Self-Feeding Oral Impairment Mildly Impaired Oral Strategies Upright at 90 degrees Oral Phase Comments Oral Peripheral Exam: Mild- moderate left side facial droop, more apparent with smile. Mild lingual weakness, tremors upon protrusion, and mild deviation to left at rest and upon protrusion; ROM is WFL. Mild left buccal weakness resulting in effortful coordination of shifting air laterally into cheeks. Jaw strength WFL; however, lateral ROM is reduced. Pt has natural teeth in good condition. Soft palate elevates upon phonation. Labial strength, ROM and coordination WFL. Oral Phase: Pt exhibits slowed oral prep phase which appears to be in part secondary to weakness and also learned strategy from previous dysphagia therapy to chew well at a slow rate. Timliness is adequate for this pt. Pt masticated appropriately on both sides of mouth without difficulty and exhibited timely swallow and good oral clearance. Pharyngeal Impairment WNL Pharyngeal Strategies Sitting Upright (90 deg) Pharyngeal Phase Comments No overt s/sx of aspiration were observed with all trials of mashed potatoes and chicken breast with gravy, thin liquid (water and ice cream based milk shake), and 3 tablets swallowed individually with water. The pt maintained clear vocal quality throughout the evaluation. She declined further trials d/t reduced appetite following vomiting episode earlier in the day. Findings Dysphagia Type Mild oral dysphagia Rehabilitation Potential Excellent Impressions The pt exhibited mild oral dsyphagia secondary to weakness of musculature. No overt symptoms of pharyngeal dysphagia were observed during this evaluation in a quiet and structured environment; however, ongoing assessment and follow-up education is advised d/t pt's hx of dysphagia and complaints of coughing with intake. Education and strategy training was provided RE potential effects of hiatal hernia on swallow function and safety. The pt was recommended to consume small bites and sips, chew solids very well, alternate solids and liquids to assist in esophageal clearance. She was advised to minimize distractions with oral intake. Dysphagia Advanced diet texture is recommended to avoid dry, crumbly foods which the pt reports give her the most trouble. The pt denied changes in speech, expressive/receptive communication or cognitive skills. Mild dysarthria symptoms are present but consistent with the pt's baseline. She participated appropriately in conversation, both expressively and receptively, and followed all 1- and 2-step instructions. She verbalized understanding of [employer]'s recommendations and independently read written instructions for safe swallow strategies. Diet Recommendations Liquids Order Thin Diet Order Dysphagia Advanced Medication Recommendations As Tolerated Whole One at a Time Aspiration Precautions Recommended Precautions Upright at 90 Degrees Alternate Liquids/Solids Small Bites/Sips Additional Precautions Chew solids very well Treatment Plan Placement Recommendations after Home Discharge Home with Home Health Outpatient Therapy Appropriate for Therapy Yes Therapy Recommendations Ongoing assessment, pt/family education RE swallow safety and compensatory strategies to improve oral intake in the presence of hiatal hernia; swallow exercises increase strength, coordination and ROM of swallow musculature and reduce risk of aspiration. Dysphagia Goals 1. The pt will employ safe swallow strategies to manage consumption in presence of hiatal hernia and reduce risk of aspiration. 2. The pt will perform exercises to increase strength , coordination and ROM of swallow mechanism. 3. The pt will tolerate least restrictive diet to meet her nutrition and hydration needs. [employer] Follow Up Hospital stay; or outpatient therapy after hospital discharge.
[2018-07-14] MEDS: VENLAFAXINE ER 37.5 MG CAP PO (17:50)
--- NOTE | 2018-07-14 18:40 | PC.NURSE ---
Addendum entered by Sunshine Bell R.N. 07/14/18 22:21: 2220 - Pt using pharmacy services representative, reports increased abd cramping. 3.4mg cleared. Pt able to ambulate to bathroom to void. Reports mild nausea but mostly controlled with scheduled Rx. Call light in reach. Supportive family at bedside. Original Note: Addendum entered by Sunshine Bell R.N. 07/14/18 21:57: 2100 - Pt denies nausea. Set up for HS meds. Snack provided. Pt able to take pills without difficulty. Pt reports fatigue follow a day full of therapy. Denies pain. Original Note: 1830 - Pt to bathroom, Unsteady gait. Needs reinforcement to assure balance before moving. Back to bed pt states, I don't feel good. Reports feeling nauseated. I don't like the food here. Discussed nausea medication. Pt hob elevated. Monitor for nausea at rest. Call light in reach. Family at bedside.
[2018-07-14] MEDS: ATORVASTATIN 20 MG TABLET PO (21:33)
[2018-07-14] MEDS: MELATONIN 3 MG TABLET 6 MG PO (21:34)
[2018-07-14 23:10] LABS: Bacteria Urine None Seen; RBC Urine None Seen (0-5/HPF); WBC Urine None Seen (0-5/HPF)
[2018-07-14 23:17] LABS: Appearance Urine UA CLEAR; Bilirubin Urine UA NEGATIVE (NEGATIVE); Color Urine UA YELLOW; Glucose Urine UA NEGATIVE (Negative); Ketones Urine UA NEGATIVE (NEGATIVE); Leukocyte Esterase Urine UA NEGATIVE (NEGATIVE); Nitrite Urine UA NEGATIVE (Negative); Occult Blood Urine UA NEGATIVE (Negative); Protein Urine UA NEGATIVE (Negative); Urobilinogen Urine UA 0.2 E.U./dL (0.2); pH Urine UA 5.5 (4.5-8.0)
[2018-07-14 23:18] LABS: Calcium Oxalate Crystals Urine Occasional; Squamous Epithelial Cell Urine 0-1 /HPF
[2018-07-14 23:19] LABS: Culture Indicated Urine Cult Not Indicated
--- NOTE | 2018-07-15 00:20 | PC.NURSE ---
c/o nausea with emesis and med for same with zofran 20 min early. BP 5 min after emesis 155/100 and 10 min later 122/86. States headache is improving. Denies any vertigo NIH unchanged.
[2018-07-15] MEDS: PANTOPRAZOLE 20 MG TABLET PO (05:55)
[2018-07-15] MEDS: LEVOTHYROXINE 88 MCG TABLET PO (05:55)
[2018-07-15 05:57] VITALS: BP 135/75; PULSE 70; RESP 17; TEMP 36.5; O2SAT 96
[2018-07-15 08:15] VITALS: BP 121/72; PULSE 71; RESP 16; TEMP 36.4; O2SAT 93
[2018-07-15] MEDS: FISH OIL 1,000 MG CAPSULE 1000 MG PO (08:35)
[2018-07-15] MEDS: LOSARTAN 50 MG TABLET 100 MG PO (08:36)
[2018-07-15] MEDS: FENOFIBRATE 48 MG TABLET PO (08:36)
[2018-07-15] MEDS: ENOXAPARIN 40 MG/0.4 ML SYRINGE SUBCUT (08:38)
[2018-07-15] MEDS: ASPIRIN/DIPYRIDAMOLE 200/25 CAP 1 EACH PO (08:38)
[2018-07-15] MEDS: CHOLECALCIFEROL (VITAMIN D3) 400 UNIT TABLET PO (08:38)
[2018-07-15] MEDS: ONDANSETRON 4 MG/2 ML INJ IV (09:45)
[2018-07-15] MEDS: NIACIN 500 MG TABLET PO (09:46)
[2018-07-15] MEDS: SODIUM CHLORIDE 0.9% FLUSH 10 ML IV (09:46)
--- NOTE | 2018-07-15 10:04 | PT.IPTN ---
Current Diagnoses Cerebral infarction, unspecified (07/13/18) Physical Therapy Treatment Note M2 PT-IP Current Condition Start: 07/13/18 16:35 Freq: NEEDED Status: Active Protocol: Document 07/13/18 15:45 AB (Rec: 07/13/18 17:01 AB [id number]) Physical Therapy Current Condition Current Condition Evaluation Date 07/13/18 Treatment Diagnosis CVA; difficulty in walking Onset Date 07/13/18 M3 PT-IP Subjective Start: 07/13/18 16:35 Freq: NEEDED Status: Active Protocol: Document 07/15/18 09:30 CLB (Rec: 07/15/18 10:04 CLB [id number]) Subjective Physical Therapy Visit Type Type Patient Refusal Notes Pt had just returned to bed from having a shower. Will check back with pt later as pt stated she would be willing to work with PT later today.
--- NOTE | 2018-07-15 10:57 | P.DS_ITS ---
History of Present Illness Chief complaint: L Leg Weakness Narrative: - THIS IS A VERY PLEASANT 78-YEAR-OLD FEMALE WITH A PAST MEDICAL HISTORY SIGNIFICANT 4 PRIOR STROKE. - PATIENT REPORTED THAT SHE HAD 4 PRIOR STROKES. THE LAST 1 REPORTEDLY WAS IN 2017. - SHE HAS BEEN IN HER USUAL STATE OF HEALTH. HOWEVER THIS MORNING HER REPORTED SEEING HER HAVING PROBLEMS AMBULATING. - SHE REPORTED THAT SHE HAD DIFFICULTY MOVING HER LEFT LOWER EXTREMITIES. SHE ALSO HAD SOME PROBLEM WITH SOME FACIAL DROOPING. - HER SYMPTOMS CONTINUE UNTIL THIS AFTERNOON. SHE STARTED HAVING PROBLEMS WITH THE LEFT SIDE OF HER FACE. - DENIES ANY NUMBNESS OR TINGLING SENSATION. SHE DID REPORT SOME WEAKNESS. - SHE DENIES ANY CHANGE IN HER MENTATION. NO SYNCOPAL OR PRESYNCOPAL EPISODE. NO HEADACHE MIGRAINES. - SHE IS RIGHT-HANDED. SHE USES A CANE TO AMBULATE AT HOME. 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 NO FEVER. NO DIFFICULTY WITH BOWELS OR URINE. - SHE DOES REPORT DIFFICULTY SWALLOWING WHICH IS BEEN ONGOING FOR A WHILE NOW. - NO OTHER COMPLAINTS Discharge Providers Date of admission: 07/13/18 12:45 Primary care physician: Conchita Felipe PA-C Consults: 07/13/18 13:01 Consult to Discharge Planning Routine Comment: Consult to Occupational Therapy Evaluate & Treat Comment: Physician Instructions: Evaluate and treat Consult to Physical Therapy Evaluate & Treat Comment: Physician Instructions: Evaluate and Treat Consult to Metal Mover Routine Comment: 07/13/18 19:31 Consult to Speech Therapy Evaluate & Treat Comment: has coughing when eating at home.. Hx. CVA x4 Physician Instructions: Evaluate and treat Discharge provider: Azael Simmons DO Discharge Date: 07/15/18 Summary Discharge Diagnosis: ACUTE VERSUS SUBACUTE CVA HYPERTENSION PER HISTORY. BLOOD PRESSURE BASELINE THROMBOCYTOSIS. OUTPATIENT MANAGEMENT. MILD OBESITY. OUTPATIENT MANAGEMENT. Hospital Course: THIS IS A VERY PLEASANT 78-YEAR-OLD FEMALE WITH A PAST MEDICAL HISTORY SIGNIFICANT FOR PRIOR CVA. PATIENT REPORTED STROKE X 4. WITH SOME MILD NEURO DEFICIT RESIDUAL. PATIENT HAS BEEN ONGOING OUTPATIENT PHYSICAL THERAPY. WORKUP DURING THIS HOSPITAL STAY DID REVEAL A SUBACUTE CVA. SHE WAS ON PLAVIX AND ASPIRIN. THOSE WERE STOPPED. SHE WAS STARTED ON AGGRENOX EXTENSIVE COUNSELING WAS GIVEN REGARD TO RISKS OF HEMORRHAGE. SHE WAS ALSO PLACED ON ADDITIONAL ANTI LIPID MEDICATIONS. SHE RECEIVED SIGNIFICANT PHYSICAL THERAPY. AT THIS POINT SHE WILL BE DISCHARGED TO HOME SHE DOES NOT MEET CRITERIA FOR NURSING HOME FACILITY PLACEMENT SHE AGREED WITH GOING HOME AT THIS POINT. ADDITIONAL MANAGEMENT WILL BE DEFERRED TO OUTPATIENT PROVIDERS AT THIS POINT. Status at Discharge Cognitive/behavioral status at discharge: STABLE TO HOME Functional status at discharge: independent ambulation Overall status at discharge: patient is back to baseline Time Spent with Patient Greater than 30 minutes Exam Vital Signs (past 8 hours): - 07/15/18 05:57 07/15/18 08:15 Temperature 97.7 F 97.5 F L Pulse Rate 70 71 Respiratory Rate 17 16 Blood Pressure 135/75 121/72 Pulse Oximetry 96 93 Oxygen Delivery Method Room Air Oxygen Flow Rate 0 Narrative Exam Narrative: NO ACUTE DISTRESS. PATIENT IS ALERT ORIENTED X3. VITAL SIGNS STABLE HEAD ATRAUMATIC NORMOCEPHALIC NECK : SUPPLE WITHOUT ADENOPATHY NO CAROTID BRUITS EYE: EOMI, PERRLA, NORMAL CONJUNCTIVA; NO JAUNDICE CHEST: REGULAR RATE. NO RUBS. PMI IS NON DISPLACED. NO MURMURS; NORMAL S1- S2 PULMONARY: DECREASED BS OVER THE BASES. MILD BIBASILAR CRACKLES NOTED; NO INCREASED DULLNESS TO PERCUSSION; NO WHEEZING ABDOMEN: SOFT. NONTENDER. NONDISTENDED. BOWEL SOUNDS ARE PRESENT IN ALL 4 QUADRANTS. NO MASS. EXTREMITIES: NO EDEMA.. NO CYANOSIS CLUBBING NOTED. NEURO: DROOPY FACE NOTED ON THE LEFT; THE REMAINING CRANIAL NERVE APPEARED TO BE INTACT; ABLE TO MOVE ALL EXTREMITIES MSK: NORMAL RANGE OF MOTION FOR AGE. NO JOINT EFFUSION. SKIN: NORMAL FOR ETHNICITY; NO ECCHYMOSIS. NO LESION. GOOD TURGOR.; NO RASHES : NORMAL EXTERNAL GENITALIA. PSYCH : APPROPRIATE MOOD AND AFFECT. ALERT AWAKE ORIENTED X3 Objective Labs Result Diagrams: 07/14/18 04:39 07/14/18 04:39 Labs: Laboratory Results - last 24 hr 07/14/18 13:30 Urine Color Yellow Urine Appearance Clear Urine pH 5.5 Ur Specific [place] 1.020 Urine Protein Negative Urine Glucose (UA) Negative Urine Ketones Negative Urine Occult Blood Negative Urine Nitrate Negative Urine Bilirubin Negative Urine Urobilinogen 0.2 Ur Leukocyte Esterase Negative Urine RBC None seen Urine WBC None seen Ur Squamous Epith Cells 0-1 /hpf Calcium Oxalate Crystal Occasional H Urine Bacteria None seen Ur Culture Indicated? Cult not indicated Micro UA Comment Not Reportable Discharge Plan Discharge Plan Patient Disposition: Home Discharge comment: PLEASE DC HOME ACT YARELIS CARDIAC DIET FALL AND ASPIRATION PRECAUTIONS F/U WITH PCP 3-10 DAYS CONTINUE PT/OT/ST PREVIOUSLY ORDERED Discharge Med Rec/Prescriptions Prescriptions: New aspirin-dipyridamole [Aggrenox] 25-200 mg Capsule, Er Multiphase 12 Hr 1 cap PO BID 90 Days Qty: 180 RF: 0 fenofibrate nanocrystallized 48 mg Tablet 48 mg PO DAILY 90 Days RF: 0 niacin 500 mg Tablet 500 mg PO DAILY 90 Days RF: 0 omega-3 fatty acids-fish oil [Fish Oil] 340-1,000 mg Capsule 1,000 mg PO DAILY 90 Days RF: 0 ondansetron HCl [Zofran] 4 mg tablet 4 mg PO BID-TID PRN (Reason: nausea and vomiting) Qty: 20 RF: 0 atorvastatin [Lipitor] 20 mg Tablet 40 mg PO BEDTIME Qty: 60 RF: 0 Continue levothyroxine 88 mcg tablet 1 tab PO SUTUTHSA RF: 0 famotidine 20 mg tablet 20 mg PO BID RF: 0 levothyroxine 100 mcg tablet 1 tab PO MOWEFR RF: 0 venlafaxine 37.5 mg capsule,extended release 24hr 1 cap PO QPM RF: 0 losartan 100 mg tablet 100 mg PO DAILY RF: 0 cyanocobalamin (vitamin B-12) 1,000 mcg/mL Solution 1 dose IM Q2W RF: 0 cholecalciferol (vitamin D3) [Vitamin D3] 400 unit Capsule 400 unit PO DAILY RF: 0 Discontinued atorvastatin [Lipitor] 20 MG tablet 20 mg PO BEDTIME Qty: 0 RF: 0 clopidogrel [Plavix] 75 MG tablet 75 mg PO DAILY Qty: 0 RF: 0 aspirin 81 mg Tablet,Delayed Release (Dr/Ec) 81 mg PO DAILY RF: 0 Follow up/Referrals: Conchita Felipe PA-C [Primary Care Provider] - Provider Discharge Instructions Diet: Low-fat and Low-cholesterol Skin/Wound/Dressing Care Report to your healthcare provider any signs of infection, such as:: chills, fever, night sweats, increased pain, unusual drainage and unusual redness Visit Report/Discharge Packet Visit Report Forms: Stroke Signs & Symptoms Discharge Data Primary Care Provider: Conchita Felipe Attending Provider: Azael Simmons Admit Date/Time: 07/13/18 12:45 Discharges patient from system. Discharge Date/Time: 07/15/18 12:23 Quality VTE Deep Vein Thrombosis/Pulmonary Embolism Present on Admission: No
--- NOTE | 2018-07-15 11:41 | PT.IPTN ---
Current Diagnoses Cerebral infarction, unspecified (07/13/18) Physical Therapy Treatment Note M2 PT-IP Current Condition Start: 07/13/18 16:35 Freq: NEEDED Status: Active Protocol: Document 07/13/18 15:45 AB (Rec: 07/13/18 17:01 AB [id number]) Physical Therapy Current Condition Current Condition Evaluation Date 07/13/18 Treatment Diagnosis CVA; difficulty in walking Onset Date 07/13/18 M3 PT-IP Subjective Start: 07/13/18 16:35 Freq: NEEDED Status: Active Protocol: Document 07/15/18 11:15 CLB (Rec: 07/15/18 11:41 CLB [id number]) Subjective Physical Therapy Visit Type Type Treatment Note Visit Start Time 11:15 Visit Stop Time 11:30 Total Visit Minutes 15 Number of STULL INSTALLER Visits 3 Physical Therapy Visit Comments Patient Comments Pt willing to work with PT. M4 PT-IP Mobility and Gait Start: 07/13/18 16:35 Freq: NEEDED Status: Active Protocol: Document 07/15/18 11:15 CLB (Rec: 07/15/18 11:41 CLB [id number]) PT-Bed Mobility Assessment Supine to Sit Supine to Sit Standby Assistance Head of Bed Elevated Scooting Scooting to Edge of Bed Standby Assistance PT-Transfer Assessment Sit to and From Stand Sit to and from Stand Contact Guard Assistance 1 Person Assistance Use of Upper Extremities Equipment Transfer Assistive Device Gait Belt Front Wheeled Walker Orthotic/Prosthetic Devices or Brace: No Transfers Transfer Destination Bed Chair Transfer Ability Level of Assist Contact Guard Assistance 1 Person Assistance Use of Upper Extremities Gait Assessment Gait Gait Assistance Required: Standby Assistance Distance (Feet) 130 Able to Maintain Weight Bearing Status Yes During Gait Assistive Devices Assistive Device Gait Belt Front Wheeled Walker Orthotic/Prosthetic Devices or Brace: No Gait Deviations General Gait Pattern Antalgic Decreased Stride Length Decreased Feet Clearance Factors Limiting Gait Function Factors Limiting Gait Function Decreased Activity Tolerance Decreased Strength Poor Balance Poor Safety Awareness M5 PT-IP Objective Assessments Start: 07/13/18 16:35 Freq: NEEDED Status: Active Protocol: Document 07/13/18 15:45 AB (Rec: 07/13/18 17:01 AB [id number]) Orientation Orientation/Cognition Level of Alertness Alert Orientation Name Age Birthday Month Date Year Day of Week Place Situation Gross Range of Motion Lower Extremity ROM Assessment Left Impaired Impairments decrease L knee extension of ~ 5-10 degrees Strength Lower Extremity Strength Assessment Bilaterally Impaired Comments Strength Comments RLE 4-/5 LLE: 3+/5 Sensation Assessment Sensation Gross Sensation WNL Muscle Tone Muscle Tone WNL Yes M6 PT-IP Treatment Start: 07/13/18 16:35 Freq: NEEDED Status: Active Protocol: Document 07/13/18 15:45 AB (Rec: 07/13/18 17:01 AB [id number]) Physical Therapy Treatment Education Education Provided Safety Other Treatments Other Treatment Performed informed pt and spouse regarding pt's current mobility level and level of assistance and d/c recommendation. M7 PT-IP Assessment and Plan Start: 07/13/18 16:35 Freq: NEEDED Status: Active Protocol: Document 07/15/18 11:15 CLB (Rec: 07/15/18 11:41 CLB [id number]) PT Summary Assessment and Plan Summary Assessment Summary Pt continues to ambulate well with FWW with good stability. Pt has good safety awareness of thresholds and obstacles during ambulation. Pt required SBA for all bed mobility and cues for hand placement with sit<>stand. Goals Bed Mobility Goal Independent Transfer Goal Standby Assistance Front Wheeled Walker Gait Goal Standby Assistance Front Wheel Walker Gait Distance 100 Other Goals up/down 1 steps using FWW CGA up/down 16 steps using bilateral rails CGA Days to Meet Goals 5 Frequency of Treatment Frequency Of Treatment Twice a Day Treatment Plan Other Recommendations and Next Treatment ambulation, bed mobility, sit Focus to stand Recommendations To Nursing Amount of Assist Needed 1 Person Assist Discharge Recommendations PT Discharge Recommendations Home with Assistance Outpatient PT
--- NOTE | 2018-07-15 12:21 | PC.NURSE ---
discharge instructions and side effects of Aggrenox and Finofibrate with pt and her . diet, aspiration and fall precautions reviewed with pt and .
--- NOTE | 2018-07-15 15:41 | CM.DPNOTE ---
DCP: continued: case discussed in morning Team Rounds. PT continues to recommend that pt go home with resumption of her OUTPT PT therapy and Dr. Devine agreed that she was medically stable for same. Went home with her as per her plan.
== END 2018-07-15 12:23 | disposition home or self-care (01) | DRG 66 ==
LOC: ED 12:34 → ICU 13:39 → AC 07-14 08:48 → ICU 07-14 08:48
PROVIDERS: Admitting Provider Hospitalist; Emergency Provider Emergency Medicine; Family Provider Physician Assistant; PCP Physician Assistant; Visit Provider Hospitalist
DX: I63.9 Cerebral infarction, unspecified (principal); R29.810 Facial weakness; I10 Essential (primary) hypertension; D47.3 Essential (hemorrhagic) thrombocythemia
CPT/HCPCS: 36415; 36591; 70450; 70496; 70498; 70553; 80048; 80053; 80061; 81001; 81003; 84100; 84484; 85025; 85610; 85730; 87797; 92610; 93005; 93041; 93306; 96360; 96361; 97116; 97161; 97165; 97530; 97535; 99284; 99285; A9270; A9579; J1650; J2405; Q9967

== ENCOUNTER → 2018-08-30 14:03 | Outpatient (CLI) | payer MEDICARE, OTHER, SELFPAY ==
[2018-07-13 13:53] VITALS: BMI 25.7
[2018-09-03 13:42] LABS: Cardiolipin Ab IgA < 11 APL; Cardiolipin Ab IgG < 14 GPL; Cardiolipin Ab IgM < 12 MPL; PTT-LA Screen 30 seconds (< OR = 40); dRVVT Screen 27 seconds (< OR = 45)
== END ==
PROVIDERS: Family Provider Internal Medicine Hematology & Oncology; PCP Physician Assistant; Visit Provider Psychiatry & Neurology Neurology
DX: Z86.73 Personal history of transient ischemic attack (TIA), and cerebral infarction without residual deficits (principal)
CPT/HCPCS: 36415; 85597; 85613; 85730; 86146; 86147

== ENCOUNTER 2018-10-01 10:30 | Outpatient (RCR) | payer MEDICARE, OTHER, SELFPAY ==
--- NOTE | 2018-05-22 14:30 | PT.OIE ---
Current Diagnoses Other abnormalities of gait and mobility (05/22/18) Weakness (05/22/18) Chronic fatigue, unspecified (05/22/18) Past Medical History (Last Updated 01/10/18 @ 16:14 by ROXANA Vernon) Stroke (Acute) Provider Visit Care Team Role Provider Type Conchita Felipe PA-C Attending Provider Advanced Commercial Mortgage Broker Family Provider Primary Care Provider Specialty: Internal Medicine Address: [address] [place] [address], [facility] Email: Physical Therapy Initial Evaluation PT-OP-A Visit Information Start: 05/23/18 11:25 Freq: Status: Active Protocol: Document 05/22/18 13:45 DCW (Rec: 05/23/18 11:57 DCW [id number]) Out-Patient Physical Therapy Visit Information Visit Information Visit Type Initial Evaluation Visit Start Time 13:45 Visit Stop Time 14:30 Total Visit Minutes 45 Visit Number 1 Number of MEASUREMENT SPECIALIST Visits 0 Evaluation Information Evaluation Date 05/22/18 PT-OP-B Current Condition Start: 05/23/18 11:25 Freq: Status: Active Protocol: Document 05/22/18 13:45 DCW (Rec: 05/23/18 11:57 DCW [id number]) Current Condition History of Current Condition Onset Date Multi-year history Current Complaints Imbalance, weakness, fatigue, poor posture History of Current Condition Pt is a 78 year old female well known to this clinic presenting with complaints of imbalance and weakness, whcih she has previously been treated for with varying degrees of success. Pt reports she back has been hurting more recently and she feels it is impacting her posture, and admits her gait speed has dramatically declined since her last round of physical therapy. Pt notes an increased fear of falling, and during a recent trip to [facility], used a wheelchair to get around so she did not slow down the rest of her family. Treatment Goals Patient/Caregiver Goals Increase gait speed, improve posture, strengthen legs Prior Functional Status Baseline Function- ADL's Modified Independent Baseline Function- Mobility Modified Independent Current Functional Impairments (Reported) Functional Limitations- Mobility/Gait Very slow gait art, fear of falling, difficulty walking anywhere due to increased time taken to get around. PT-OP-C Subjective Start: 05/23/18 11:25 Freq: Status: Active Protocol: Document 05/22/18 13:45 DCW (Rec: 05/23/18 11:57 DCW [id number]) Patient Questionnaires Foot & Ankle Ability Measure- ADL and Sports FAAM-ADL Score 49/84 = 58.33 FAAM-ADL Impairment 20 to 39% Impaired (Score 50- 66) Lower Extremity Functional Scale LEFS Score 30/80 = 37.5% LEFS Impairment 60 to 79% Impaired (Score 17- 31) OP-PT Pain Assessment Pain Assessment Grid Paper Pain Assessment Grid Completed Yes Location Bilateral Lower Back Intensity 4 Scale Used Numeric (1 - 10) PT-OP-D Balance Start: 05/23/18 11:25 Freq: Status: Active Protocol: Document 05/22/18 13:45 DCW (Rec: 05/23/18 11:57 DCW [id number]) OP-PT Balance Assessment Sitting Balance Static Sitting Balance Ability Good Dynamic Sitting Balance Ability Good Standing Balance Static Standing Balance Ability Good Dynamic Standing Balance Ability Good Balance Tests Peterson Balance Test Peterson Balance Test Score 41/56 Peterson Impairment Rating 20 to 39% Impaired (Score 34- 44) Peterson Balance Assessment Evaluation Sitting to Standing Ability Independent w/Hands Unsupported Stance Safely- 2 minutes Sitting Unsupported, Feet on Floor Safely- 2 minutes Standing to Sitting Ability Assist, Control w/Hands Transfer Ability Safely, Hand Use Unsupported Stance- Eyes Closed Safely, 10 seconds Unsupported Stance- Eyes Open Independent, 1 minute Reaching Forward Standing Safely, 5 inches Pick- Up Object From Floor Independent/Safe Look Behind Shoulder - Standing Turns Sideways Only Turning 360 Degrees Turns slowly, but safely Unsupported Stance, Alternating Feet on 4 Steps w/Supervision Stair Unsupported Tandem Stance Small Step- 30 seconds Unilateral Leg Stance Lifts Leg/Unable to Hold Total Score Peterson Total Score (out of 56 points) 41 Peterson Impairment Rating 20 to 39% Impaired (Score 34- 44) Vann Fall Scale Copyright Permission Soo COOPER, Soo RM, Jana SJ. Development of a scale to identify the fall- prone patient. Can J Aging 1989;8;366-7. Marla Vann (2009). Preventing patient falls. (2nd ed). Larue: Chaudhary. PT-OP-E Functional Tests Start: 05/23/18 11:25 Freq: Status: Active Protocol: Document 05/22/18 13:45 DCW (Rec: 05/23/18 11:57 DCW [id number]) Functional Tests 6 Minute Walk Test Distance 278' Device Used SPC Comments .77 ft/sec PT-OP-M Strength Start: 05/23/18 11:25 Freq: Status: Active Protocol: Document 05/22/18 13:45 DCW (Rec: 05/23/18 11:57 DCW [id number]) Hip Strength Hip Manual Muscle Testing Right Flexion (L2) 4 Good Abduction 4- Good- Adduction 4- Good- External Rotation 4 Good Internal Rotation 4+ Good+ Left Flexion (L2) 4+ Good+ Abduction 4- Good- Adduction 4- Good- External Rotation 4- Good- Internal Rotation 4+ Good+ Knee Strength Knee Manual Muscle Testing Right Flexion (S2) 4- Good- Extension (L3) 3+ Fair+ Left Flexion (S2) 4 Good Extension (L3) 4 Good Ankle/Foot Strength Ankle and Foot Manual Muscle Testing Right Dorsiflexion (L4) 3+ Fair+ Plantarflexion (S1) 3+ Fair+ Left Dorsiflexion (L4) 4- Good- Plantarflexion (S1) 3+ Fair+ PT-OP-T Assessment and Plan Start: 05/23/18 11:25 Freq: Status: Active Protocol: Document 05/22/18 13:45 DCW (Rec: 05/23/18 11:57 DCW [id number]) Physical Therapy Assessment Rehab Potential Rehabilitation Potential Fair Evaluation Complexity Number of Personal Factors/Comorbidities 1-2 Number of Body Systems Impaired 3 Clinical Presentation at Evaluation Stable Impairments Impairments Activity Tolerance Functional Activities Functional Mobility Gait Posture ROM Strength Goals Four Impairment Peterson Balance Scale Shelter Goal (LTG) Pt to score at least 47/56 on Peterson Balance Scale LTG Duration 07/22/18 Three Impairment LE MMT Blade Operator Goal (LTG) PT LE MMT grossly 4/5 LTG Duration 07/22/18 Two Impairment Gait speed Shelter Goal (LTG) Pt gait speed to 1.11 ft/sec ( 6 MWT distance of 400'). LTG Duration 07/22/18 One Impairment Pt does not have an appropriate home exercise program Short Term Goal (STG) Pt to be independent and compliant with an appropriate HEP STG Duration 06/21/18 Assessment Summary Assessment Pt presents with decreased gait speed, LE weakness, and increased fear of falling. Pt current speed of .77 feet per second falls well below the cutoff of 1.97 feet per second , which indicates an increased risk of further functional decline in older adults. Will focus on strengthening LE and improving gait speed and balance in order decrease pt's fear of falling and improve her mobility in the community. Pt does display a moderate forward head, rounded shoulder posture, which may also impact her balance, and should be addressed with posture training and scapular strengthening. Physical Therapy Plan Frequency and Duration Frequency of Treatment 2x/Week Duration of Treatment 12 weeks Plan of Care Start Date 05/22/18 Plan of Care End Date 08/14/18 Therapeutic Interventions Therapeutic Interventions Balance Training Gait Training Home Exercise Program Joint Mobilizations Manual Therapy Neuromuscular Re-education Patient/Caregiver Education Self-Care/Home Management Therapeutic Activities Therapeutic Exercises Modalities Cold Pack/Ice Massage Hot Packs Next Visit Focus/Plan Next Note Type Treatment Note Next Visit Plan Balance training, gait training, improving posture.
--- NOTE | 2018-05-22 14:30 | PT.OPPOC ---
Current Diagnoses Other abnormalities of gait and mobility (05/22/18) Weakness (05/22/18) Chronic fatigue, unspecified (05/22/18) Provider Visit Care Team Role Provider Type Conchita Felipe PA-C Attending Provider Advanced Tur[employer] Grounds Supervisor Family Provider Primary Care Provider Specialty: Internal Medicine Address: [address] [place] [address], [id number] Email: Plan Of Care PT-OP-T Assessment and Plan Start: 05/23/18 11:25 Freq: Status: Active Protocol: Document 05/22/18 13:45 DCW (Rec: 05/23/18 11:57 DCW [id number]) Physical Therapy Assessment Rehab Potential Rehabilitation Potential Fair Evaluation Complexity Number of Personal Factors/Comorbidities 1-2 Number of Body Systems Impaired 3 Clinical Presentation at Evaluation Stable Impairments Impairments Activity Tolerance Functional Activities Functional Mobility Gait Posture ROM Strength Goals Four Impairment Peterson Balance Scale Press Writer Goal (LTG) Pt to score at least 47/56 on Peterson Balance Scale LTG Duration 07/22/18 Three Impairment LE MMT Press Writer Goal (LTG) PT LE MMT grossly 4/5 LTG Duration 07/22/18 Two Impairment Gait speed Nursing Home Goal (LTG) Pt gait speed to 1.11 ft/sec ( 6 MWT distance of 400'). LTG Duration 07/22/18 One Impairment Pt does not have an appropriate home exercise program Short Term Goal (STG) Pt to be independent and compliant with an appropriate HEP STG Duration 06/21/18 Assessment Summary Assessment Pt presents with decreased gait speed, LE weakness, and increased fear of falling. Pt current speed of .77 feet per second falls well below the cutoff of 1.97 feet per second , which indicates an increased risk of further functional decline in older adults. Will focus on strengthening LE and improving gait speed and balance in order decrease pt's fear of falling and improve her mobility in the community. Pt does display a moderate forward head, rounded shoulder posture, which may also impact her balance, and should be addressed with posture training and scapular strengthening. Physical Therapy Plan Frequency and Duration Frequency of Treatment 2x/Week Duration of Treatment 12 weeks Plan of Care Start Date 05/22/18 Plan of Care End Date 08/14/18 Therapeutic Interventions Therapeutic Interventions Balance Training Gait Training Home Exercise Program Joint Mobilizations Manual Therapy Neuromuscular Re-education Patient/Caregiver Education Self-Care/Home Management Therapeutic Activities Therapeutic Exercises Modalities Cold Pack/Ice Massage Hot Packs Next Visit Focus/Plan Next Note Type Treatment Note Next Visit Plan Balance training, gait training, improving posture. Plan of Care Dates Plan of Care Start Date 05/22/18 Plan of Care End Date 08/14/18 Please Sign and Return: I have reviewed this Plan of Care and certify that the skilled therapy services above are required to meet the patient?s needs. Physician Signature Date Printed Name and Credentials Clinical Instructor Signature Printed Name and Credentials
--- NOTE | 2018-05-24 14:34 | PT.OTN ---
Current Diagnoses Other abnormalities of gait and mobility (05/24/18) Weakness (05/24/18) Physical Therapy Treatment Note PT-OP-A Visit Information Start: 05/23/18 11:25 Freq: Status: Active Protocol: Document 05/24/18 13:50 DCW (Rec: 05/24/18 14:33 DCW [id number]) Out-Patient Physical Therapy Visit Information Visit Information Visit Type Treatment Note Visit Note 5 minutes late Visit Start Time 13:50 Visit Stop Time 14:30 Total Visit Minutes 40 Visit Number 2 Number of LOADING RACK SUPERVISOR Visits 0 Evaluation Information Evaluation Date 05/22/18 PT-OP-B Current Condition Start: 05/23/18 11:25 Freq: Status: Active Protocol: Document 05/22/18 13:45 DCW (Rec: 05/23/18 11:57 DCW [id number]) Current Condition History of Current Condition Onset Date Multi-year history Current Complaints Imbalance, weakness, fatigue, poor posture History of Current Condition Pt is a 78 year old female well known to this clinic presenting with complaints of imbalance and weakness, whcih she has previously been treated for with varying degrees of success. Pt reports she back has been hurting more recently and she feels it is impacting her posture, and admits her gait speed has dramatically declined since her last round of physical therapy. Pt notes an increased fear of falling, and during a recent trip to [facility], used a wheelchair to get around so she did not slow down the rest of her family. Treatment Goals Patient/Caregiver Goals Increase gait speed, improve posture, strengthen legs Prior Functional Status Baseline Function- ADL's Modified Independent Baseline Function- Mobility Modified Independent Current Functional Impairments (Reported) Functional Limitations- Mobility/Gait Very slow gait art, fear of falling, difficulty walking anywhere due to increased time taken to get around. PT-OP-C Subjective Start: 05/23/18 11:25 Freq: Status: Active Protocol: Document 05/24/18 13:50 DCW (Rec: 05/24/18 14:33 DCW [id number]) OP-PT Subjective Patient Comments Patient Comments Pt reports she is feeling good today. PT-OP-D Balance Start: 05/23/18 11:25 Freq: Status: Active Protocol: Document 05/22/18 13:45 DCW (Rec: 05/23/18 11:57 DCW [id number]) OP-PT Balance Assessment Sitting Balance Static Sitting Balance Ability Good Dynamic Sitting Balance Ability Good Standing Balance Static Standing Balance Ability Good Dynamic Standing Balance Ability Good Balance Tests Peterson Balance Test Peterson Balance Test Score 41/56 Peterson Impairment Rating 20 to 39% Impaired (Score 34- 44) Peterson Balance Assessment Evaluation Sitting to Standing Ability Independent w/Hands Unsupported Stance Safely- 2 minutes Sitting Unsupported, Feet on Floor Safely- 2 minutes Standing to Sitting Ability Assist, Control w/Hands Transfer Ability Safely, Hand Use Unsupported Stance- Eyes Closed Safely, 10 seconds Unsupported Stance- Eyes Open Independent, 1 minute Reaching Forward Standing Safely, 5 inches Pick- Up Object From Floor Independent/Safe Look Behind Shoulder - Standing Turns Sideways Only Turning 360 Degrees Turns slowly, but safely Unsupported Stance, Alternating Feet on 4 Steps w/Supervision Stair Unsupported Tandem Stance Small Step- 30 seconds Unilateral Leg Stance Lifts Leg/Unable to Hold Total Score Peterson Total Score (out of 56 points) 41 Peterson Impairment Rating 20 to 39% Impaired (Score 34- 44) Vann Fall Scale Copyright Permission Soo COOPER, Soo RM, Jana SJ. Development of a scale to identify the fall- prone patient. Can J Aging 1989;8;366-7. Marla Vann (2009). Preventing patient falls. (2nd ed). [place]: Chaudhary. PT-OP-E Functional Tests Start: 05/23/18 11:25 Freq: Status: Active Protocol: Document 05/24/18 13:50 DCW (Rec: 05/24/18 14:34 DCW [id number]) Functional Tests Timed Up and Go (TUG) Score 28.83 seconds Comments 3-trial average TUG Impairment Rating 100% Impaired (Score 20) PT-OP-M Strength Start: 05/23/18 11:25 Freq: Status: Active Protocol: Document 05/22/18 13:45 DCW (Rec: 05/23/18 11:57 DCW [id number]) Hip Strength Hip Manual Muscle Testing Right Flexion (L2) 4 Good Abduction 4- Good- Adduction 4- Good- External Rotation 4 Good Internal Rotation 4+ Good+ Left Flexion (L2) 4+ Good+ Abduction 4- Good- Adduction 4- Good- External Rotation 4- Good- Internal Rotation 4+ Good+ Knee Strength Knee Manual Muscle Testing Right Flexion (S2) 4- Good- Extension (L3) 3+ Fair+ Left Flexion (S2) 4 Good Extension (L3) 4 Good Ankle/Foot Strength Ankle and Foot Manual Muscle Testing Right Dorsiflexion (L4) 3+ Fair+ Plantarflexion (S1) 3+ Fair+ Left Dorsiflexion (L4) 4- Good- Plantarflexion (S1) 3+ Fair+ PT-OP-Q Treatments Start: 05/23/18 11:25 Freq: Status: Active Protocol: Document 05/24/18 13:50 DCW (Rec: 05/24/18 14:33 DCW [id number]) Cardio Equipment Recumbent Stepper (Sci-Fit) Duration (Minutes) 5 Resistance 2 Seat Position 9 Therapeutic Exercises Standing Exercises Hurdles Standing Exercise Name Hurdles @ rail Gait Training Gait Activity Stride length Description with and without ladder to increase stride length Device Used Floor ladder Gait speed training Description over 23' then 170' Comments 23' speed: 22.6->15.4->14.6 ->12.65 170' speed: 117.8 PT-OP-T Assessment and Plan Start: 05/23/18 11:25 Freq: Status: Active Protocol: Document 05/24/18 13:50 DCW (Rec: 05/24/18 14:33 DCW [id number]) Physical Therapy Assessment Impairments Impairments Activity Tolerance Functional Activities Functional Mobility Gait Posture ROM Strength Goals Four Impairment Peterson Balance Scale Usp Goal (LTG) Pt to score at least 47/56 on Peterson Balance Scale LTG Duration 07/22/18 Three Impairment LE MMT Usp Goal (LTG) PT LE MMT grossly 4/5 LTG Duration 07/22/18 Two Impairment Gait speed Usp Goal (LTG) Pt gait speed to 1.11 ft/sec ( 6 MWT distance of 400'). LTG Duration 07/22/18 One Impairment Pt does not have an appropriate home exercise program Short Term Goal (STG) Pt to be independent and compliant with an appropriate HEP STG Duration 06/21/18 Assessment Summary Assessment Pt able to greatly progress gait speed and stride length over the course of her session today with verbal cues. Over short 23' distance, pt speed improved from 1.01 feet per second to 1.82 feet per second . Discussed with pt importance of her paying attention to gait speed and stride length, pointming out that she is able to perform these actions with no loss of balance or instability. Physical Therapy Plan Frequency and Duration Frequency of Treatment 2x/Week Duration of Treatment 12 weeks Plan of Care Start Date 05/22/18 Plan of Care End Date 08/14/18 Therapeutic Interventions Therapeutic Interventions Balance Training Gait Training Home Exercise Program Joint Mobilizations Manual Therapy Neuromuscular Re-education Patient/Caregiver Education Self-Care/Home Management Therapeutic Activities Therapeutic Exercises Modalities Cold Pack/Ice Massage Hot Packs Next Visit Focus/Plan Next Note Type Treatment Note Next Visit Plan Balance training, gait training, improving posture.
--- NOTE | 2018-05-29 17:47 | PT.OTN ---
Current Diagnoses Other abnormalities of gait and mobility (05/29/18) Weakness (05/29/18) Physical Therapy Treatment Note PT-OP-A Visit Information Start: 05/23/18 11:25 Freq: Status: Active Protocol: Document 05/29/18 13:45 DCW (Rec: 05/29/18 17:47 DCW [id number]) Out-Patient Physical Therapy Visit Information Visit Information Visit Type Treatment Note Visit Start Time 13:45 Visit Stop Time 14:30 Total Visit Minutes 45 Visit Number 3 Number of JOINT CUTTER MACHINE Visits 0 Evaluation Information Evaluation Date 05/22/18 PT-OP-B Current Condition Start: 05/23/18 11:25 Freq: Status: Active Protocol: Document 05/22/18 13:45 DCW (Rec: 05/23/18 11:57 DCW [id number]) Current Condition History of Current Condition Onset Date Multi-year history Current Complaints Imbalance, weakness, fatigue, poor posture History of Current Condition Pt is a 78 year old female well known to this clinic presenting with complaints of imbalance and weakness, whcih she has previously been treated for with varying degrees of success. Pt reports she back has been hurting more recently and she feels it is impacting her posture, and admits her gait speed has dramatically declined since her last round of physical therapy. Pt notes an increased fear of falling, and during a recent trip to [facility], used a wheelchair to get around so she did not slow down the rest of her family. Treatment Goals Patient/Caregiver Goals Increase gait speed, improve posture, strengthen legs Prior Functional Status Baseline Function- ADL's Modified Independent Baseline Function- Mobility Modified Independent Current Functional Impairments (Reported) Functional Limitations- Mobility/Gait Very slow gait art, fear of falling, difficulty walking anywhere due to increased time taken to get around. PT-OP-C Subjective Start: 05/23/18 11:25 Freq: Status: Active Protocol: Document 05/29/18 13:45 DCW (Rec: 05/29/18 17:47 DCW [id number]) OP-PT Subjective Patient Comments Patient Comments Pt brings in her walking sticks today, stating her wanted her to bring them in and discuss them, as he feels that she walks better with them, but she doesn't like to use them. PT-OP-D Balance Start: 05/23/18 11:25 Freq: Status: Active Protocol: Document 05/22/18 13:45 DCW (Rec: 05/23/18 11:57 DCW [id number]) OP-PT Balance Assessment Sitting Balance Static Sitting Balance Ability Good Dynamic Sitting Balance Ability Good Standing Balance Static Standing Balance Ability Good Dynamic Standing Balance Ability Good Balance Tests Peterson Balance Test Peterson Balance Test Score 41/56 Peterson Impairment Rating 20 to 39% Impaired (Score 34- 44) Peterson Balance Assessment Evaluation Sitting to Standing Ability Independent w/Hands Unsupported Stance Safely- 2 minutes Sitting Unsupported, Feet on Floor Safely- 2 minutes Standing to Sitting Ability Assist, Control w/Hands Transfer Ability Safely, Hand Use Unsupported Stance- Eyes Closed Safely, 10 seconds Unsupported Stance- Eyes Open Independent, 1 minute Reaching Forward Standing Safely, 5 inches Pick- Up Object From Floor Independent/Safe Look Behind Shoulder - Standing Turns Sideways Only Turning 360 Degrees Turns slowly, but safely Unsupported Stance, Alternating Feet on 4 Steps w/Supervision Stair Unsupported Tandem Stance Small Step- 30 seconds Unilateral Leg Stance Lifts Leg/Unable to Hold Total Score Peterson Total Score (out of 56 points) 41 Peterson Impairment Rating 20 to 39% Impaired (Score 34- 44) Vann Fall Scale Copyright Permission Soo COOPER, Soo RM, Jana SJ. Development of a scale to identify the fall- prone patient. Can J Aging 1989;8;366-7. aMrla Vann (2009). Preventing patient falls. (2nd ed). [place]: Chaudhary. PT-OP-E Functional Tests Start: 05/23/18 11:25 Freq: Status: Active Protocol: Document 05/24/18 13:50 DCW (Rec: 05/24/18 14:34 DCW [id number]) Functional Tests Timed Up and Go (TUG) Score 28.83 seconds Comments 3-trial average TUG Impairment Rating 100% Impaired (Score 20) PT-OP-M Strength Start: 05/23/18 11:25 Freq: Status: Active Protocol: Document 05/22/18 13:45 DCW (Rec: 05/23/18 11:57 DCW [id number]) Hip Strength Hip Manual Muscle Testing Right Flexion (L2) 4 Good Abduction 4- Good- Adduction 4- Good- External Rotation 4 Good Internal Rotation 4+ Good+ Left Flexion (L2) 4+ Good+ Abduction 4- Good- Adduction 4- Good- External Rotation 4- Good- Internal Rotation 4+ Good+ Knee Strength Knee Manual Muscle Testing Right Flexion (S2) 4- Good- Extension (L3) 3+ Fair+ Left Flexion (S2) 4 Good Extension (L3) 4 Good Ankle/Foot Strength Ankle and Foot Manual Muscle Testing Right Dorsiflexion (L4) 3+ Fair+ Plantarflexion (S1) 3+ Fair+ Left Dorsiflexion (L4) 4- Good- Plantarflexion (S1) 3+ Fair+ PT-OP-Q Treatments Start: 05/23/18 11:25 Freq: Status: Active Protocol: Document 05/29/18 13:45 DCW (Rec: 05/29/18 17:47 DCW [id number]) Cardio Equipment Upper Body Ergometer (UBE) Duration (Minutes) 4 Seat Position 12 Height 2.5 Other RPM as tolerated Gym Equipment Therapeutic Ball Wall-ball walk up Exercise Details ball walk-up wall Ball Size/Color Blue - 45 cm Body Position Standing Comments forced thoracic extension Therapeutic Exercises Sitting Exercises Chest Press Sitting Exercise Name Chest press with wand Shoulder Retraction Sitting Exercise Name Shoulder retraction Horizontal shoulder Abduction Sitting Exercise Name Horizontal Abduction Side bilateral Resistance Lv 1 Equipment Used T-band Standing Exercises Rows Standing Exercise Name Rows Side bilateral Resistance Lv 1 Equipment Used T-band Shoulder Extension Standing Exercise Name Extension Side bilateral Resistance Lv 1 Equipment Used T-band Gait Training Gait Activity Gait speed training Description over 23' then 170' Comments 23' speed: 12.3->10.5->11.2 ->10.3 170' speed: 100.4 PT-OP-T Assessment and Plan Start: 05/23/18 11:25 Freq: Status: Active Protocol: Document 05/29/18 13:45 DCW (Rec: 05/29/18 17:47 DCW [id number]) Physical Therapy Assessment Impairments Impairments Activity Tolerance Functional Activities Functional Mobility Gait Posture ROM Strength Goals Four Impairment Peterson Balance Scale Custodial Goal (LTG) Pt to score at least 47/56 on Peterson Balance Scale LTG Duration 07/22/18 Three Impairment LE MMT Custodial Goal (LTG) PT LE MMT grossly 4/5 LTG Duration 07/22/18 Two Impairment Gait speed Custodial Goal (LTG) Pt gait speed to 1.11 ft/sec ( 6 MWT distance of 400'). LTG Duration 07/22/18 One Impairment Pt does not have an appropriate home exercise program Short Term Goal (STG) Pt to be independent and compliant with an appropriate HEP STG Duration 06/21/18 Assessment Summary Assessment Pt gait speed improved to 2.24 fps over short 23' distance, and pt speed improved to 1.7 fps over longer 170' distance. Pt tolerated shoulder strengthening in order to improve posture well. Pt did walk with a faster art and improved stability using walking sticks, and recommended to patient to try and use them more frequently. Physical Therapy Plan Frequency and Duration Frequency of Treatment 2x/Week Duration of Treatment 12 weeks Plan of Care Start Date 05/22/18 Plan of Care End Date 08/14/18 Therapeutic Interventions Therapeutic Interventions Balance Training Gait Training Home Exercise Program Joint Mobilizations Manual Therapy Neuromuscular Re-education Patient/Caregiver Education Self-Care/Home Management Therapeutic Activities Therapeutic Exercises Modalities Cold Pack/Ice Massage Hot Packs Next Visit Focus/Plan Next Note Type Treatment Note Next Visit Plan Balance training, gait training, improving posture.
--- NOTE | 2018-06-04 15:12 | PT.OTN ---
Current Diagnoses Other abnormalities of gait and mobility (06/04/18) Weakness (06/04/18) Physical Therapy Treatment Note PT-OP-A Visit Information Start: 05/23/18 11:25 Freq: Status: Active Protocol: Document 06/04/18 14:30 DCW (Rec: 06/04/18 15:12 DCW [id number]) Out-Patient Physical Therapy Visit Information Visit Information Visit Type Treatment Note Visit Start Time 14:30 Visit Stop Time 15:15 Total Visit Minutes 45 Visit Number 4 Number of WAREHOUSE ORDER SELECTOR Visits 0 Evaluation Information Evaluation Date 05/22/18 PT-OP-B Current Condition Start: 05/23/18 11:25 Freq: Status: Active Protocol: Document 05/22/18 13:45 DCW (Rec: 05/23/18 11:57 DCW [id number]) Current Condition History of Current Condition Onset Date Multi-year history Current Complaints Imbalance, weakness, fatigue, poor posture History of Current Condition Pt is a 78 year old female well known to this clinic presenting with complaints of imbalance and weakness, whcih she has previously been treated for with varying degrees of success. Pt reports she back has been hurting more recently and she feels it is impacting her posture, and admits her gait speed has dramatically declined since her last round of physical therapy. Pt notes an increased fear of falling, and during a recent trip to [facility], used a wheelchair to get around so she did not slow down the rest of her family. Treatment Goals Patient/Caregiver Goals Increase gait speed, improve posture, strengthen legs Prior Functional Status Baseline Function- ADL's Modified Independent Baseline Function- Mobility Modified Independent Current Functional Impairments (Reported) Functional Limitations- Mobility/Gait Very slow gait art, fear of falling, difficulty walking anywhere due to increased time taken to get around. PT-OP-C Subjective Start: 05/23/18 11:25 Freq: Status: Active Protocol: Document 06/04/18 14:30 DCW (Rec: 06/04/18 15:12 DCW [id number]) OP-PT Subjective Patient Comments Patient Comments Pt admits she is okay, but not great. PT-OP-D Balance Start: 05/23/18 11:25 Freq: Status: Active Protocol: Document 05/22/18 13:45 DCW (Rec: 05/23/18 11:57 DCW [id number]) OP-PT Balance Assessment Sitting Balance Static Sitting Balance Ability Good Dynamic Sitting Balance Ability Good Standing Balance Static Standing Balance Ability Good Dynamic Standing Balance Ability Good Balance Tests Peterson Balance Test Peterson Balance Test Score 41/56 Peterson Impairment Rating 20 to 39% Impaired (Score 34- 44) Peterson Balance Assessment Evaluation Sitting to Standing Ability Independent w/Hands Unsupported Stance Safely- 2 minutes Sitting Unsupported, Feet on Floor Safely- 2 minutes Standing to Sitting Ability Assist, Control w/Hands Transfer Ability Safely, Hand Use Unsupported Stance- Eyes Closed Safely, 10 seconds Unsupported Stance- Eyes Open Independent, 1 minute Reaching Forward Standing Safely, 5 inches Pick- Up Object From Floor Independent/Safe Look Behind Shoulder - Standing Turns Sideways Only Turning 360 Degrees Turns slowly, but safely Unsupported Stance, Alternating Feet on 4 Steps w/Supervision Stair Unsupported Tandem Stance Small Step- 30 seconds Unilateral Leg Stance Lifts Leg/Unable to Hold Total Score Peterson Total Score (out of 56 points) 41 Peterson Impairment Rating 20 to 39% Impaired (Score 34- 44) Vann Fall Scale Copyright Permission Soo COOPER, Soo RM, Jana SJ. Development of a scale to identify the fall- prone patient. Can J Aging 1989;8;366-7. Marla Vann (2009). Preventing patient falls. (2nd ed). [place]: Chaudhary. PT-OP-E Functional Tests Start: 05/23/18 11:25 Freq: Status: Active Protocol: Document 05/24/18 13:50 DCW (Rec: 05/24/18 14:34 DCW [id number]) Functional Tests Timed Up and Go (TUG) Score 28.83 seconds Comments 3-trial average TUG Impairment Rating 100% Impaired (Score 20) PT-OP-M Strength Start: 05/23/18 11:25 Freq: Status: Active Protocol: Document 05/22/18 13:45 DCW (Rec: 05/23/18 11:57 DCW [id number]) Hip Strength Hip Manual Muscle Testing Right Flexion (L2) 4 Good Abduction 4- Good- Adduction 4- Good- External Rotation 4 Good Internal Rotation 4+ Good+ Left Flexion (L2) 4+ Good+ Abduction 4- Good- Adduction 4- Good- External Rotation 4- Good- Internal Rotation 4+ Good+ Knee Strength Knee Manual Muscle Testing Right Flexion (S2) 4- Good- Extension (L3) 3+ Fair+ Left Flexion (S2) 4 Good Extension (L3) 4 Good Ankle/Foot Strength Ankle and Foot Manual Muscle Testing Right Dorsiflexion (L4) 3+ Fair+ Plantarflexion (S1) 3+ Fair+ Left Dorsiflexion (L4) 4- Good- Plantarflexion (S1) 3+ Fair+ PT-OP-Q Treatments Start: 05/23/18 11:25 Freq: Status: Active Protocol: Document 06/04/18 14:30 DCW (Rec: 06/04/18 15:12 DCW [id number]) Cardio Equipment Upper Body Ergometer (UBE) Duration (Minutes) 5 Seat Position 12 Height 2.5 Other RPM as tolerated Therapeutic Exercises Sitting Exercises Chest Press Sitting Exercise Name Chest press with wand Shoulder Retraction Sitting Exercise Name Shoulder retraction Standing Exercises Hurdles Standing Exercise Name Hurdles @ rail Therapeutic Activity Therapeutic Activity Sit<->Stand Name Sit<->Stand training Comments Verbal and tactile cues Gait Training Gait Activity Gait speed training Description over 23' then 170' Comments 23' time: 10.2->9.3->8.8->8. 7 170' time: 80.3 PT-OP-T Assessment and Plan Start: 05/23/18 11:25 Freq: Status: Active Protocol: Document 06/04/18 14:30 DCW (Rec: 06/04/18 15:12 DCW [id number]) Physical Therapy Assessment Impairments Impairments Activity Tolerance Functional Activities Functional Mobility Gait Posture ROM Strength Goals Four Impairment Peterson Balance Scale Cocktail Server Goal (LTG) Pt to score at least 47/56 on Peterson Balance Scale LTG Duration 07/22/18 Three Impairment LE MMT Cocktail Server Goal (LTG) PT LE MMT grossly 4/5 LTG Duration 07/22/18 Two Impairment Gait speed Residential Goal (LTG) Pt gait speed to 1.11 ft/sec ( 6 MWT distance of 400'). LTG Duration 07/22/18 One Impairment Pt does not have an appropriate home exercise program Short Term Goal (STG) Pt to be independent and compliant with an appropriate HEP STG Duration 06/21/18 Assessment Summary Assessment Gait speed continues to improve greatly compared to initial evaluation, pt feeling more comfortable with increased speed, however gait quality degrades after walking longer than one minute. Continue to focus on increased activity tolerance, gait speed, and posture. Physical Therapy Plan Frequency and Duration Frequency of Treatment 2x/Week Duration of Treatment 12 weeks Plan of Care Start Date 05/22/18 Plan of Care End Date 08/14/18 Therapeutic Interventions Therapeutic Interventions Balance Training Gait Training Home Exercise Program Joint Mobilizations Manual Therapy Neuromuscular Re-education Patient/Caregiver Education Self-Care/Home Management Therapeutic Activities Therapeutic Exercises Modalities Cold Pack/Ice Massage Hot Packs Next Visit Focus/Plan Next Note Type Treatment Note Next Visit Plan Balance training, gait training, improving posture.
--- NOTE | 2018-06-06 15:10 | PT.OTN ---
Current Diagnoses Other abnormalities of gait and mobility (06/06/18) Weakness (06/06/18) Physical Therapy Treatment Note PT-OP-A Visit Information Start: 05/23/18 11:25 Freq: Status: Active Protocol: Document 06/06/18 14:35 DCW (Rec: 06/06/18 15:10 DCW [id number]) Out-Patient Physical Therapy Visit Information Visit Information Visit Type Treatment Note Visit Note 5 minutes late Visit Start Time 14:35 Visit Stop Time 15:15 Total Visit Minutes 40 Visit Number 5 Number of MUSHROOM SORTER GRADER Visits 0 Evaluation Information Evaluation Date 05/22/18 PT-OP-B Current Condition Start: 05/23/18 11:25 Freq: Status: Active Protocol: Document 05/22/18 13:45 DCW (Rec: 05/23/18 11:57 DCW [id number]) Current Condition History of Current Condition Onset Date Multi-year history Current Complaints Imbalance, weakness, fatigue, poor posture History of Current Condition Pt is a 78 year old female well known to this clinic presenting with complaints of imbalance and weakness, whcih she has previously been treated for with varying degrees of success. Pt reports she back has been hurting more recently and she feels it is impacting her posture, and admits her gait speed has dramatically declined since her last round of physical therapy. Pt notes an increased fear of falling, and during a recent trip to [facility], used a wheelchair to get around so she did not slow down the rest of her family. Treatment Goals Patient/Caregiver Goals Increase gait speed, improve posture, strengthen legs Prior Functional Status Baseline Function- ADL's Modified Independent Baseline Function- Mobility Modified Independent Current Functional Impairments (Reported) Functional Limitations- Mobility/Gait Very slow gait art, fear of falling, difficulty walking anywhere due to increased time taken to get around. PT-OP-C Subjective Start: 05/23/18 11:25 Freq: Status: Active Protocol: Document 06/06/18 14:35 DCW (Rec: 06/06/18 15:10 DCW [id number]) OP-PT Subjective Patient Comments Patient Comments Pt notes she feels okay today, but is very tired. PT-OP-D Balance Start: 05/23/18 11:25 Freq: Status: Active Protocol: Document 05/22/18 13:45 DCW (Rec: 05/23/18 11:57 DCW [id number]) OP-PT Balance Assessment Sitting Balance Static Sitting Balance Ability Good Dynamic Sitting Balance Ability Good Standing Balance Static Standing Balance Ability Good Dynamic Standing Balance Ability Good Balance Tests Peterson Balance Test Peterson Balance Test Score 41/56 Peterson Impairment Rating 20 to 39% Impaired (Score 34- 44) Peterson Balance Assessment Evaluation Sitting to Standing Ability Independent w/Hands Unsupported Stance Safely- 2 minutes Sitting Unsupported, Feet on Floor Safely- 2 minutes Standing to Sitting Ability Assist, Control w/Hands Transfer Ability Safely, Hand Use Unsupported Stance- Eyes Closed Safely, 10 seconds Unsupported Stance- Eyes Open Independent, 1 minute Reaching Forward Standing Safely, 5 inches Pick- Up Object From Floor Independent/Safe Look Behind Shoulder - Standing Turns Sideways Only Turning 360 Degrees Turns slowly, but safely Unsupported Stance, Alternating Feet on 4 Steps w/Supervision Stair Unsupported Tandem Stance Small Step- 30 seconds Unilateral Leg Stance Lifts Leg/Unable to Hold Total Score Peterson Total Score (out of 56 points) 41 Peterson Impairment Rating 20 to 39% Impaired (Score 34- 44) Soo Fall Scale Copyright Permission Soo COOPER, Soo RM, Jana SJ. Development of a scale to identify the fall- prone patient. Can J Aging 1989;8;366-7. Marla Vann (2009). Preventing patient falls. (2nd ed). [place]: Chaudhary. PT-OP-E Functional Tests Start: 05/23/18 11:25 Freq: Status: Active Protocol: Document 05/24/18 13:50 DCW (Rec: 05/24/18 14:34 DCW [id number]) Functional Tests Timed Up and Go (TUG) Score 28.83 seconds Comments 3-trial average TUG Impairment Rating 100% Impaired (Score 20) PT-OP-M Strength Start: 05/23/18 11:25 Freq: Status: Active Protocol: Document 05/22/18 13:45 DCW (Rec: 05/23/18 11:57 DCW [id number]) Hip Strength Hip Manual Muscle Testing Right Flexion (L2) 4 Good Abduction 4- Good- Adduction 4- Good- External Rotation 4 Good Internal Rotation 4+ Good+ Left Flexion (L2) 4+ Good+ Abduction 4- Good- Adduction 4- Good- External Rotation 4- Good- Internal Rotation 4+ Good+ Knee Strength Knee Manual Muscle Testing Right Flexion (S2) 4- Good- Extension (L3) 3+ Fair+ Left Flexion (S2) 4 Good Extension (L3) 4 Good Ankle/Foot Strength Ankle and Foot Manual Muscle Testing Right Dorsiflexion (L4) 3+ Fair+ Plantarflexion (S1) 3+ Fair+ Left Dorsiflexion (L4) 4- Good- Plantarflexion (S1) 3+ Fair+ PT-OP-Q Treatments Start: 05/23/18 11:25 Freq: Status: Active Protocol: Document 06/06/18 14:35 DCW (Rec: 06/06/18 15:10 DCW [id number]) Cardio Equipment Upper Body Ergometer (UBE) Duration (Minutes) 5 Seat Position 12 Height 2.5 Other RPM as tolerated Gym Equipment Therapeutic Ball Wall-ball walk up Exercise Details ball walk-up wall Ball Size/Color Blue - 45 cm Body Position Standing Reps/Duration x5 Comments forced thoracic extension Therapeutic Exercises Sitting Exercises Horizontal shoulder Abduction Sitting Exercise Name Horizontal Abduction Side bilateral Resistance Lv 1 Equipment Used T-band Reps/Minutes x20 Standing Exercises Rows Standing Exercise Name Rows Side bilateral Resistance Lv 2 Equipment Used T-band Shoulder Extension Standing Exercise Name Extension Side bilateral Resistance Lv 1 Equipment Used T-band Hurdles Standing Exercise Name Hurdles @ rail Therapeutic Activity Therapeutic Activity Sit<->Stand Name Sit<->Stand training Comments Verbal and tactile cues Gait Training Gait Activity Gait speed training Description 170' PT-OP-T Assessment and Plan Start: 05/23/18 11:25 Freq: Status: Active Protocol: Document 06/06/18 14:35 DCW (Rec: 06/06/18 15:10 DCW [id number]) Physical Therapy Assessment Impairments Impairments Activity Tolerance Functional Activities Functional Mobility Gait Posture ROM Strength Goals Four Impairment Peterson Balance Scale Stock Worker Goal (LTG) Pt to score at least 47/56 on Peterson Balance Scale LTG Duration 07/22/18 Three Impairment LE MMT Stock Worker Goal (LTG) PT LE MMT grossly 4/5 LTG Duration 07/22/18 Two Impairment Gait speed Fdc Goal (LTG) Pt gait speed to 1.11 ft/sec ( 6 MWT distance of 400'). LTG Duration 07/22/18 One Impairment Pt does not have an appropriate home exercise program Short Term Goal (STG) Pt to be independent and compliant with an appropriate HEP STG Duration 06/21/18 Assessment Summary Assessment Decreased gait speed today, however gait was performed at the end of PT rather than the beginning, which likely influenced pt's fatigue level. Physical Therapy Plan Frequency and Duration Frequency of Treatment 2x/Week Duration of Treatment 12 weeks Plan of Care Start Date 05/22/18 Plan of Care End Date 08/14/18 Therapeutic Interventions Therapeutic Interventions Balance Training Gait Training Home Exercise Program Joint Mobilizations Manual Therapy Neuromuscular Re-education Patient/Caregiver Education Self-Care/Home Management Therapeutic Activities Therapeutic Exercises Modalities Cold Pack/Ice Massage Hot Packs Next Visit Focus/Plan Next Note Type Treatment Note Next Visit Plan Balance training, gait training, improving posture.
--- NOTE | 2018-06-27 11:13 | PT.OTN ---
Current Diagnoses Other abnormalities of gait and mobility (06/27/18) Weakness (06/27/18) Physical Therapy Treatment Note PT-OP-A Visit Information Start: 05/23/18 11:25 Freq: Status: Active Protocol: Document 06/27/18 10:35 DCW (Rec: 06/27/18 11:13 DCW [id number]) Out-Patient Physical Therapy Visit Information Visit Information Visit Type Treatment Note Visit Note 5 minutes late Visit Start Time 10:35 Visit Stop Time 11:15 Total Visit Minutes 40 Visit Number 6 Number of PRINTMAKER Visits 0 Evaluation Information Evaluation Date 05/22/18 PT-OP-B Current Condition Start: 05/23/18 11:25 Freq: Status: Active Protocol: Document 05/22/18 13:45 DCW (Rec: 05/23/18 11:57 DCW [id number]) Current Condition History of Current Condition Onset Date Multi-year history Current Complaints Imbalance, weakness, fatigue, poor posture History of Current Condition Pt is a 78 year old female well known to this clinic presenting with complaints of imbalance and weakness, whcih she has previously been treated for with varying degrees of success. Pt reports she back has been hurting more recently and she feels it is impacting her posture, and admits her gait speed has dramatically declined since her last round of physical therapy. Pt notes an increased fear of falling, and during a recent trip to [facility], used a wheelchair to get around so she did not slow down the rest of her family. Treatment Goals Patient/Caregiver Goals Increase gait speed, improve posture, strengthen legs Prior Functional Status Baseline Function- ADL's Modified Independent Baseline Function- Mobility Modified Independent Current Functional Impairments (Reported) Functional Limitations- Mobility/Gait Very slow gait art, fear of falling, difficulty walking anywhere due to increased time taken to get around. PT-OP-C Subjective Start: 05/23/18 11:25 Freq: Status: Active Protocol: Document 06/27/18 10:35 DCW (Rec: 06/27/18 11:13 DCW [id number]) OP-PT Subjective Patient Comments Patient Comments Pt admits she has not had anything to eat or drink this morning, because she got up late. PT-OP-D Balance Start: 05/23/18 11:25 Freq: Status: Active Protocol: Document 05/22/18 13:45 DCW (Rec: 05/23/18 11:57 DCW [id number]) OP-PT Balance Assessment Sitting Balance Static Sitting Balance Ability Good Dynamic Sitting Balance Ability Good Standing Balance Static Standing Balance Ability Good Dynamic Standing Balance Ability Good Balance Tests Peterson Balance Test Peterson Balance Test Score 41/56 Peterson Impairment Rating 20 to 39% Impaired (Score 34- 44) Peterson Balance Assessment Evaluation Sitting to Standing Ability Independent w/Hands Unsupported Stance Safely- 2 minutes Sitting Unsupported, Feet on Floor Safely- 2 minutes Standing to Sitting Ability Assist, Control w/Hands Transfer Ability Safely, Hand Use Unsupported Stance- Eyes Closed Safely, 10 seconds Unsupported Stance- Eyes Open Independent, 1 minute Reaching Forward Standing Safely, 5 inches Pick- Up Object From Floor Independent/Safe Look Behind Shoulder - Standing Turns Sideways Only Turning 360 Degrees Turns slowly, but safely Unsupported Stance, Alternating Feet on 4 Steps w/Supervision Stair Unsupported Tandem Stance Small Step- 30 seconds Unilateral Leg Stance Lifts Leg/Unable to Hold Total Score Peterson Total Score (out of 56 points) 41 Peterson Impairment Rating 20 to 39% Impaired (Score 34- 44) Vann Fall Scale Copyright Permission Soo COOPER, Soo RM, Jana SJ. Development of a scale to identify the fall- prone patient. Can J Aging 1989;8;366-7. Marla Vann (2009). Preventing patient falls. (2nd ed). [place]: Chaudhary. PT-OP-E Functional Tests Start: 05/23/18 11:25 Freq: Status: Active Protocol: Document 05/24/18 13:50 DCW (Rec: 05/24/18 14:34 DCW [id number]) Functional Tests Timed Up and Go (TUG) Score 28.83 seconds Comments 3-trial average TUG Impairment Rating 100% Impaired (Score 20) PT-OP-M Strength Start: 05/23/18 11:25 Freq: Status: Active Protocol: Document 05/22/18 13:45 DCW (Rec: 05/23/18 11:57 DCW [id number]) Hip Strength Hip Manual Muscle Testing Right Flexion (L2) 4 Good Abduction 4- Good- Adduction 4- Good- External Rotation 4 Good Internal Rotation 4+ Good+ Left Flexion (L2) 4+ Good+ Abduction 4- Good- Adduction 4- Good- External Rotation 4- Good- Internal Rotation 4+ Good+ Knee Strength Knee Manual Muscle Testing Right Flexion (S2) 4- Good- Extension (L3) 3+ Fair+ Left Flexion (S2) 4 Good Extension (L3) 4 Good Ankle/Foot Strength Ankle and Foot Manual Muscle Testing Right Dorsiflexion (L4) 3+ Fair+ Plantarflexion (S1) 3+ Fair+ Left Dorsiflexion (L4) 4- Good- Plantarflexion (S1) 3+ Fair+ PT-OP-Q Treatments Start: 05/23/18 11:25 Freq: Status: Active Protocol: Document 06/27/18 10:35 DCW (Rec: 06/27/18 11:13 DCW [id number]) Cardio Equipment Upper Body Ergometer (UBE) Duration (Minutes) 5 Seat Position 12 Height 2.5 Other RPM as tolerated Therapeutic Exercises Sitting Exercises Chest Press Sitting Exercise Name Chest press with wand Shoulder Retraction Sitting Exercise Name Shoulder retraction Horizontal shoulder Abduction Sitting Exercise Name Horizontal Abduction Side bilateral Resistance Lv 1 Equipment Used T-band Reps/Minutes x20 Standing Exercises Rows Standing Exercise Name Rows Side bilateral Resistance Lv 2 Equipment Used T-band Hurdles Standing Exercise Name Hurdles @ rail Resistance 2# Equipment Used Ankle weights Therapeutic Activity Therapeutic Activity Sit<->Stand Name Sit<->Stand training Comments Verbal and tactile cues Gait Training Gait Activity Stride length Description with and without ladder to increase stride length Device Used Floor ladder Gait speed training Description 170' Comments 170' time: 103.1 PT-OP-T Assessment and Plan Start: 05/23/18 11:25 Freq: Status: Active Protocol: Document 06/27/18 10:35 DCW (Rec: 06/27/18 11:13 DCW [id number]) Physical Therapy Assessment Impairments Impairments Activity Tolerance Functional Activities Functional Mobility Gait Posture ROM Strength Goals Four Impairment Peterson Balance Scale Intermediate Goal (LTG) Pt to score at least 47/56 on Peterson Balance Scale LTG Duration 07/22/18 Three Impairment LE MMT Intermediate Goal (LTG) PT LE MMT grossly 4/5 LTG Duration 07/22/18 Two Impairment Gait speed Clothing Pattern Preparer Goal (LTG) Pt gait speed to 1.11 ft/sec ( 6 MWT distance of 400'). LTG Duration 07/22/18 One Impairment Pt does not have an appropriate home exercise program Short Term Goal (STG) Pt to be independent and compliant with an appropriate HEP STG Duration 06/21/18 Assessment Summary Assessment Decreased gait speed again today, pt admits she has not been working very much on her gait speed at home. Physical Therapy Plan Frequency and Duration Frequency of Treatment 2x/Week Duration of Treatment 12 weeks Plan of Care Start Date 05/22/18 Plan of Care End Date 08/14/18 Therapeutic Interventions Therapeutic Interventions Balance Training Gait Training Home Exercise Program Joint Mobilizations Manual Therapy Neuromuscular Re-education Patient/Caregiver Education Self-Care/Home Management Therapeutic Activities Therapeutic Exercises Modalities Cold Pack/Ice Massage Hot Packs Next Visit Focus/Plan Next Note Type Treatment Note Next Visit Plan Balance training, gait training, improving posture.
--- NOTE | 2018-07-05 12:45 | PT.OTN ---
Current Diagnoses Other abnormalities of gait and mobility (07/05/18) Weakness (07/05/18) Physical Therapy Treatment Note PT-OP-A Visit Information Start: 05/23/18 11:25 Freq: Status: Active Protocol: Document 07/05/18 12:05 DCW (Rec: 07/05/18 12:45 DCW [id number]) Out-Patient Physical Therapy Visit Information Visit Information Visit Type Treatment Note Visit Note 5 minutes late Visit Start Time 12:05 Visit Stop Time 12:45 Total Visit Minutes 40 Visit Number 7 Number of LUNCHEONETTE OPERATOR Visits 0 Evaluation Information Evaluation Date 05/22/18 PT-OP-B Current Condition Start: 05/23/18 11:25 Freq: Status: Active Protocol: Document 05/22/18 13:45 DCW (Rec: 05/23/18 11:57 DCW [id number]) Current Condition History of Current Condition Onset Date Multi-year history Current Complaints Imbalance, weakness, fatigue, poor posture History of Current Condition Pt is a 78 year old female well known to this clinic presenting with complaints of imbalance and weakness, whcih she has previously been treated for with varying degrees of success. Pt reports she back has been hurting more recently and she feels it is impacting her posture, and admits her gait speed has dramatically declined since her last round of physical therapy. Pt notes an increased fear of falling, and during a recent trip to [facility], used a wheelchair to get around so she did not slow down the rest of her family. Treatment Goals Patient/Caregiver Goals Increase gait speed, improve posture, strengthen legs Prior Functional Status Baseline Function- ADL's Modified Independent Baseline Function- Mobility Modified Independent Current Functional Impairments (Reported) Functional Limitations- Mobility/Gait Very slow gait art, fear of falling, difficulty walking anywhere due to increased time taken to get around. PT-OP-C Subjective Start: 05/23/18 11:25 Freq: Status: Active Protocol: Document 07/05/18 12:05 DCW (Rec: 07/05/18 12:45 DCW [id number]) OP-PT Subjective Patient Comments Patient Comments Pt reports she is so-so, but I'm here. I've been a little dizzy lately. PT-OP-D Balance Start: 05/23/18 11:25 Freq: Status: Active Protocol: Document 05/22/18 13:45 DCW (Rec: 05/23/18 11:57 DCW [id number]) OP-PT Balance Assessment Sitting Balance Static Sitting Balance Ability Good Dynamic Sitting Balance Ability Good Standing Balance Static Standing Balance Ability Good Dynamic Standing Balance Ability Good Balance Tests Peterson Balance Test Peterson Balance Test Score 41/56 Peterson Impairment Rating 20 to 39% Impaired (Score 34- 44) Peterson Balance Assessment Evaluation Sitting to Standing Ability Independent w/Hands Unsupported Stance Safely- 2 minutes Sitting Unsupported, Feet on Floor Safely- 2 minutes Standing to Sitting Ability Assist, Control w/Hands Transfer Ability Safely, Hand Use Unsupported Stance- Eyes Closed Safely, 10 seconds Unsupported Stance- Eyes Open Independent, 1 minute Reaching Forward Standing Safely, 5 inches Pick- Up Object From Floor Independent/Safe Look Behind Shoulder - Standing Turns Sideways Only Turning 360 Degrees Turns slowly, but safely Unsupported Stance, Alternating Feet on 4 Steps w/Supervision Stair Unsupported Tandem Stance Small Step- 30 seconds Unilateral Leg Stance Lifts Leg/Unable to Hold Total Score Peterson Total Score (out of 56 points) 41 Peterson Impairment Rating 20 to 39% Impaired (Score 34- 44) Vann Fall Scale Copyright Permission Soo COOPER, Soo RM, Jana SJ. Development of a scale to identify the fall- prone patient. Can J Aging 1989;8;366-7. Marla Vann (2009). Preventing patient falls. (2nd ed). [place]: Chaudhary. PT-OP-E Functional Tests Start: 05/23/18 11:25 Freq: Status: Active Protocol: Document 05/24/18 13:50 DCW (Rec: 05/24/18 14:34 DCW [id number]) Functional Tests Timed Up and Go (TUG) Score 28.83 seconds Comments 3-trial average TUG Impairment Rating 100% Impaired (Score 20) PT-OP-M Strength Start: 05/23/18 11:25 Freq: Status: Active Protocol: Document 05/22/18 13:45 DCW (Rec: 05/23/18 11:57 DCW [id number]) Hip Strength Hip Manual Muscle Testing Right Flexion (L2) 4 Good Abduction 4- Good- Adduction 4- Good- External Rotation 4 Good Internal Rotation 4+ Good+ Left Flexion (L2) 4+ Good+ Abduction 4- Good- Adduction 4- Good- External Rotation 4- Good- Internal Rotation 4+ Good+ Knee Strength Knee Manual Muscle Testing Right Flexion (S2) 4- Good- Extension (L3) 3+ Fair+ Left Flexion (S2) 4 Good Extension (L3) 4 Good Ankle/Foot Strength Ankle and Foot Manual Muscle Testing Right Dorsiflexion (L4) 3+ Fair+ Plantarflexion (S1) 3+ Fair+ Left Dorsiflexion (L4) 4- Good- Plantarflexion (S1) 3+ Fair+ PT-OP-Q Treatments Start: 05/23/18 11:25 Freq: Status: Active Protocol: Document 07/05/18 12:05 DCW (Rec: 07/05/18 12:45 DCW [id number]) Cardio Equipment Upper Body Ergometer (UBE) Duration (Minutes) 5 Seat Position 12 Height 2.5 Other RPM as tolerated Therapeutic Exercises Sitting Exercises Chest Press Sitting Exercise Name Chest press with wand Resistance #2 Shoulder Retraction Sitting Exercise Name Shoulder retraction Horizontal shoulder Abduction Sitting Exercise Name Horizontal Abduction Side bilateral Resistance Lv 1 Equipment Used T-band Reps/Minutes x20 Standing Exercises Rows Standing Exercise Name Rows Side bilateral Resistance Lv 2 Equipment Used T-band Shoulder Extension Standing Exercise Name Extension Side bilateral Resistance Lv 1 Equipment Used T-band Gait Training Gait Activity Stride length Description with and without ladder to increase stride length Device Used Floor ladder Gait speed training Description 170' Comments 170' time: 95.7 PT-OP-T Assessment and Plan Start: 05/23/18 11:25 Freq: Status: Active Protocol: Document 07/05/18 12:05 DCW (Rec: 07/05/18 12:45 DCW [id number]) Physical Therapy Assessment Impairments Impairments Activity Tolerance Functional Activities Functional Mobility Gait Posture ROM Strength Goals Four Impairment Peterson Balance Scale Custodial Goal (LTG) Pt to score at least 47/56 on Peterson Balance Scale LTG Duration 07/22/18 Three Impairment LE MMT Custodial Goal (LTG) PT LE MMT grossly 4/5 LTG Duration 07/22/18 Two Impairment Gait speed Custodial Goal (LTG) Pt gait speed to 1.11 ft/sec ( 6 MWT distance of 400'). LTG Duration 07/22/18 One Impairment Pt does not have an appropriate home exercise program Short Term Goal (STG) Pt to be independent and compliant with an appropriate HEP STG Duration 06/21/18 Assessment Summary Assessment During her 170' walk today, pt was actually walking with a good pace and was ahead of her normal pace, until [address] became too fatigued to continue at the same art and began to walk at her normal slow speed. Physical Therapy Plan Frequency and Duration Frequency of Treatment 2x/Week Duration of Treatment 12 weeks Plan of Care Start Date 05/22/18 Plan of Care End Date 08/14/18 Therapeutic Interventions Therapeutic Interventions Balance Training Gait Training Home Exercise Program Joint Mobilizations Manual Therapy Neuromuscular Re-education Patient/Caregiver Education Self-Care/Home Management Therapeutic Activities Therapeutic Exercises Modalities Cold Pack/Ice Massage Hot Packs Next Visit Focus/Plan Next Note Type Treatment Note Next Visit Plan Balance training, gait training, improving posture.
--- NOTE | 2018-07-23 10:54 | PT.OTN ---
Current Diagnoses Other abnormalities of gait and mobility (07/23/18) Weakness (07/23/18) Physical Therapy Treatment Note PT-OP-A Visit Information Start: 05/23/18 11:25 Freq: Status: Active Protocol: Document 07/23/18 09:45 DCW (Rec: 07/23/18 09:57 DCW [id number]) Out-Patient Physical Therapy Visit Information Visit Information Visit Type Progress Note Visit Start Time 09:45 Visit Stop Time 10:30 Total Visit Minutes 45 Visit Number 8 Number of METAL ROOFER Visits 0 Evaluation Information Evaluation Date 05/22/18 PT-OP-B Current Condition Start: 05/23/18 11:25 Freq: Status: Active Protocol: Document 07/23/18 09:45 DCW (Rec: 07/23/18 10:43 DCW [id number]) Current Condition History of Current Condition Onset Date Multi-year history Current Complaints Imbalance, weakness, fatigue, poor posture History of Current Condition Pt is a 78 year old female well known to this clinic presenting with complaints of imbalance and weakness, whcih she has previously been treated for with varying degrees of success. Pt reports she back has been hurting more recently and she feels it is impacting her posture, and admits her gait speed has dramatically declined since her last round of physical therapy. Pt notes an increased fear of falling, and during a recent trip to [facility], used a wheelchair to get around so she did not slow down the rest of her family. 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 Pt discharged with orders to continue prior PT/OT/ST as previously ordered. Treatment Goals Patient/Caregiver Goals Increase gait speed, improve posture, strengthen legs Prior Functional Status Baseline Function- ADL's Modified Independent Baseline Function- Mobility Modified Independent Current Functional Impairments (Reported) Functional Limitations- Mobility/Gait Very slow gait art, fear of falling, difficulty walking anywhere due to increased time taken to get around. PT-OP-C Subjective Start: 05/23/18 11:25 Freq: Status: Active Protocol: Document 07/23/18 09:45 DCW (Rec: 07/23/18 09:57 DCW [id number]) OP-PT Subjective Patient Comments Patient Comments Unfortunately, since pt's last visit, she suffered a fifth CVA. Pt woke up on 07/13/18 and her left leg didn't work. Pt was hospitalized for two days, and as symptoms resolved , she returned home. Pt feels like she is still weaker than she had been, and is much less stable, walking with a FWW or two walking sticks instead of her usual cane PT-OP-D Balance Start: 05/23/18 11:25 Freq: Status: Active Protocol: Document 07/23/18 09:45 DCW (Rec: 07/23/18 10:39 DCW [id number]) Balance Tests Peterson Balance Test Peterson Balance Test Score 42/56 Peterson Impairment Rating 20 to 39% Impaired (Score 34- 44) Peterson Balance Assessment Evaluation Sitting to Standing Ability Independent w/Hands Unsupported Stance Safely- 2 minutes Sitting Unsupported, Feet on Floor Safely- 2 minutes Standing to Sitting Ability Assist, Control w/Hands Transfer Ability Safely, Hand Use Unsupported Stance- Eyes Closed Safely, 10 seconds Unsupported Stance- Eyes Open Independent, 1 minute Reaching Forward Standing Safely, 5 inches Pick- Up Object From Floor Independent/Safe Look Behind Shoulder - Standing Shifts Weight Unilateral Turning 360 Degrees Turns slowly, but safely Unsupported Stance, Alternating Feet on 4 Steps w/Supervision Stair Unsupported Tandem Stance Small Step- 30 seconds Unilateral Leg Stance Lifts Leg/Unable to Hold Total Score Peterson Total Score (out of 56 points) 42 Peterson Impairment Rating 20 to 39% Impaired (Score 34- 44) PT-OP-E Functional Tests Start: 05/23/18 11:25 Freq: Status: Active Protocol: Document 07/23/18 09:45 DCW (Rec: 07/23/18 10:39 DCW [id number]) Functional Tests 6 Minute Walk Test Distance 227' in 3:44 Device Used Two walking sticks Comments 1.01 ft/sec Timed Up and Go (TUG) Score 26.16 seconds Comments 3-trial average TUG Impairment Rating 100% Impaired (Score 20) PT-OP-M Strength Start: 05/23/18 11:25 Freq: Status: Active Protocol: Document 07/23/18 09:45 DCW (Rec: 07/23/18 10:39 DCW [id number]) Hip Strength Hip Manual Muscle Testing Right Flexion (L2) 4+ Good+ Abduction 4 Good Adduction 4 Good External Rotation 4 Good Internal Rotation 4+ Good+ Left Flexion (L2) 4 Good Abduction 4 Good Adduction 4 Good External Rotation 4- Good- Internal Rotation 4+ Good+ Knee Strength Knee Manual Muscle Testing Right Flexion (S2) 4 Good Extension (L3) 4- Good- Left Flexion (S2) 4 Good Extension (L3) 4- Good- Ankle/Foot Strength Ankle and Foot Manual Muscle Testing Right Dorsiflexion (L4) 4- Good- Plantarflexion (S1) 4- Good- Left Dorsiflexion (L4) 4- Good- Plantarflexion (S1) 4- Good- PT-OP-Q Treatments Start: 05/23/18 11:25 Freq: Status: Active Protocol: Document 07/23/18 09:45 DCW (Rec: 07/23/18 10:54 [facility] [id number]) Gait Training Gait Activity 6 MWT, TUG testing Description Reassessment testing Manual Therapy Treatment Manual Techniques MMT testing Type MMT testing Neuro Re-Education Treatment Other Activities Peterson testing Details Peterson testing PT-OP-T Assessment and Plan Start: 05/23/18 11:25 Freq: Status: Active Protocol: Document 07/23/18 09:45 DCW (Rec: 07/23/18 10:54 [facility] [id number]) Physical Therapy Assessment Impairments Impairments Activity Tolerance Functional Activities Functional Mobility Gait Posture ROM Strength Goals Four Impairment Peterson Balance Scale Senior Care Goal (LTG) Pt to score at least 47/56 on Peterson Balance Scale LTG Duration 09/20/18 Three Impairment LE MMT Senior Care Goal (LTG) PT LE MMT grossly 4/5 LTG Duration 09/20/18 Two Impairment Gait speed Motor Vehicle Examiner Goal (LTG) Pt gait speed to 1.11 ft/sec ( 6 MWT distance of 400'). LTG Duration 09/20/18 One Impairment Pt does not have an appropriate home exercise program Short Term Goal (STG) Pt to be independent and compliant with an appropriate HEP STG Duration 08/23/18 Assessment Summary Assessment Pt was reassessed today following discharge from in- patient status after a fifth CVA. Pt's current level of function is grossly very similar to her status at initial evaluation, with a one point improvement in her Peterson and a TUG score of 2.5 seconds faster. Unfortunately, it does appear that she has declined in her gait speed, which was improving quite a bit over the course of her rehab, getting up from an initial evaluation level of . 77 ft/sec to a max of 2.12 ft/ sec, however potential for continued progress still remains. Pt should continue to beenfit from skilled PT focusing on strengthening, balance training, gait training with a focus on gait speed/art, and improving confidence to decrease fear of falling. Physical Therapy Plan Frequency and Duration Frequency of Treatment 2x/Week Duration of Treatment 12 weeks Plan of Care Start Date 07/23/18 Plan of Care End Date 10/15/18 Therapeutic Interventions Therapeutic Interventions Balance Training Gait Training Home Exercise Program Joint Mobilizations Manual Therapy Neuromuscular Re-education Patient/Caregiver Education Self-Care/Home Management Therapeutic Activities Therapeutic Exercises Modalities Cold Pack/Ice Massage Hot Packs Next Visit Focus/Plan Next Note Type Treatment Note Next Visit Plan Balance training, gait training, improving posture.
--- NOTE | 2018-07-23 10:54 | PT.OPPOC ---
Current Diagnoses Other abnormalities of gait and mobility (07/23/18) Weakness (07/23/18) Provider Visit Care Team Role Provider Type Conchita Felipe PA-C Attending Provider Advanced Solution Designer Family Provider Primary Care Provider Specialty: Internal Medicine Address: [address] [place] [address], [id number] Email: Plan Of Care PT-OP-T Assessment and Plan Start: 05/23/18 11:25 Freq: Status: Active Protocol: Document 07/23/18 09:45 DCW (Rec: 07/23/18 10:54 DCW [id number]) Physical Therapy Assessment Impairments Impairments Activity Tolerance Functional Activities Functional Mobility Gait Posture ROM Strength Goals Four Impairment Peterson Balance Scale Penitentiary Goal (LTG) Pt to score at least 47/56 on Peterson Balance Scale LTG Duration 09/20/18 Three Impairment LE MMT Penitentiary Goal (LTG) PT LE MMT grossly 4/5 LTG Duration 09/20/18 Two Impairment Gait speed Hem Inspector Goal (LTG) Pt gait speed to 1.11 ft/sec ( 6 MWT distance of 400'). LTG Duration 09/20/18 One Impairment Pt does not have an appropriate home exercise program Short Term Goal (STG) Pt to be independent and compliant with an appropriate HEP STG Duration 08/23/18 Assessment Summary Assessment Pt was reassessed today following discharge from in- patient status after a fifth CVA. Pt's current level of function is grossly very similar to her status at initial evaluation, with a one point improvement in her Peterson and a TUG score of 2.5 seconds faster. Unfortunately, it does appear that she has declined in her gait speed, which was improving quite a bit over the course of her rehab, getting up from an initial evaluation level of . 77 ft/sec to a max of 2.12 ft/ sec, however potential for continued progress still remains. Pt should continue to benefit from skilled PT focusing on strengthening, balance training, gait training with a focus on gait speed/art, and improving confidence to decrease fear of falling. Physical Therapy Plan Frequency and Duration Frequency of Treatment 2x/Week Duration of Treatment 12 weeks Plan of Care Start Date 07/23/18 Plan of Care End Date 10/15/18 Therapeutic Interventions Therapeutic Interventions Balance Training Gait Training Home Exercise Program Joint Mobilizations Manual Therapy Neuromuscular Re-education Patient/Caregiver Education Self-Care/Home Management Therapeutic Activities Therapeutic Exercises Modalities Cold Pack/Ice Massage Hot Packs Next Visit Focus/Plan Next Note Type Treatment Note Next Visit Plan Balance training, gait training, improving posture. Plan of Care Dates Plan of Care Start Date 07/23/18 Plan of Care End Date 10/15/18 Please Sign and Return: I have reviewed this Plan of Care and certify that the skilled therapy services above are required to meet the patient?s needs. Physician Signature Date Printed Name and Credentials Clinical Instructor Signature Printed Name and Credentials
--- NOTE | 2018-07-26 10:32 | PT.OTN ---
Current Diagnoses Other abnormalities of gait and mobility (07/26/18) Weakness (07/26/18) Physical Therapy Treatment Note PT-OP-A Visit Information Start: 05/23/18 11:25 Freq: Status: Active Protocol: Document 07/26/18 09:45 DCW (Rec: 07/26/18 10:32 DCW [id number]) Out-Patient Physical Therapy Visit Information Visit Information Visit Type Treatment Note Visit Start Time 09:45 Visit Stop Time 10:30 Total Visit Minutes 45 Visit Number 9 Number of BOBJ DEVELOPER Visits 0 Evaluation Information Evaluation Date 05/22/18 PT-OP-B Current Condition Start: 05/23/18 11:25 Freq: Status: Active Protocol: Document 07/23/18 09:45 DCW (Rec: 07/23/18 10:43 DCW [id number]) Current Condition History of Current Condition Onset Date Multi-year history Current Complaints Imbalance, weakness, fatigue, poor posture History of Current Condition Pt is a 78 year old female well known to this clinic presenting with complaints of imbalance and weakness, whcih she has previously been treated for with varying degrees of success. Pt reports she back has been hurting more recently and she feels it is impacting her posture, and admits her gait speed has dramatically declined since her last round of physical therapy. Pt notes an increased fear of falling, and during a recent trip to [facility], used a wheelchair to get around so she did not slow down the rest of her family. 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 Pt discharged with orders to continue prior PT/OT/ST as previously ordered. Treatment Goals Patient/Caregiver Goals Increase gait speed, improve posture, strengthen legs Prior Functional Status Baseline Function- ADL's Modified Independent Baseline Function- Mobility Modified Independent Current Functional Impairments (Reported) Functional Limitations- Mobility/Gait Very slow gait art, fear of falling, difficulty walking anywhere due to increased time taken to get around. PT-OP-C Subjective Start: 05/23/18 11:25 Freq: Status: Active Protocol: Document 07/26/18 09:45 DCW (Rec: 07/26/18 10:32 DCW [id number]) OP-PT Subjective Patient Comments Patient Comments Pt reports she woke up late and got a really slow start this morning, so she is feeling a little rushed. PT-OP-D Balance Start: 05/23/18 11:25 Freq: Status: Active Protocol: Document 07/23/18 09:45 DCW (Rec: 07/23/18 10:39 DCW [id number]) Balance Tests Peterson Balance Test Peterson Balance Test Score 42/56 Peterson Impairment Rating 20 to 39% Impaired (Score 34- 44) Peterson Balance Assessment Evaluation Sitting to Standing Ability Independent w/Hands Unsupported Stance Safely- 2 minutes Sitting Unsupported, Feet on Floor Safely- 2 minutes Standing to Sitting Ability Assist, Control w/Hands Transfer Ability Safely, Hand Use Unsupported Stance- Eyes Closed Safely, 10 seconds Unsupported Stance- Eyes Open Independent, 1 minute Reaching Forward Standing Safely, 5 inches Pick- Up Object From Floor Independent/Safe Look Behind Shoulder - Standing Shifts Weight Unilateral Turning 360 Degrees Turns slowly, but safely Unsupported Stance, Alternating Feet on 4 Steps w/Supervision Stair Unsupported Tandem Stance Small Step- 30 seconds Unilateral Leg Stance Lifts Leg/Unable to Hold Total Score Peterson Total Score (out of 56 points) 42 Peterson Impairment Rating 20 to 39% Impaired (Score 34- 44) PT-OP-E Functional Tests Start: 05/23/18 11:25 Freq: Status: Active Protocol: Document 07/23/18 09:45 DCW (Rec: 07/23/18 10:39 DCW [id number]) Functional Tests 6 Minute Walk Test Distance 227' in 3:44 Device Used Two walking sticks Comments 1.01 ft/sec Timed Up and Go (TUG) Score 26.16 seconds Comments 3-trial average TUG Impairment Rating 100% Impaired (Score 20) PT-OP-M Strength Start: 05/23/18 11:25 Freq: Status: Active Protocol: Document 07/23/18 09:45 DCW (Rec: 07/23/18 10:39 DCW [id number]) Hip Strength Hip Manual Muscle Testing Right Flexion (L2) 4+ Good+ Abduction 4 Good Adduction 4 Good External Rotation 4 Good Internal Rotation 4+ Good+ Left Flexion (L2) 4 Good Abduction 4 Good Adduction 4 Good External Rotation 4- Good- Internal Rotation 4+ Good+ Knee Strength Knee Manual Muscle Testing Right Flexion (S2) 4 Good Extension (L3) 4- Good- Left Flexion (S2) 4 Good Extension (L3) 4- Good- Ankle/Foot Strength Ankle and Foot Manual Muscle Testing Right Dorsiflexion (L4) 4- Good- Plantarflexion (S1) 4- Good- Left Dorsiflexion (L4) 4- Good- Plantarflexion (S1) 4- Good- PT-OP-Q Treatments Start: 05/23/18 11:25 Freq: Status: Active Protocol: Document 07/26/18 09:45 DCW (Rec: 07/26/18 10:32 DCW [id number]) Cardio Equipment Upper Body Ergometer (UBE) Duration (Minutes) 5 Seat Position 11 Height 2.5 Other RPM as tolerated Therapeutic Exercises Sitting Exercises Chest Press Sitting Exercise Name Chest press with wand Resistance #2 Standing Exercises Hurdles Standing Exercise Name Hurdles @ rail Resistance 2# Equipment Used Ankle weights Comments Forward/Side-stepping Therapeutic Activity Therapeutic Activity Sit<->Stand Name Sit<->Stand training Comments Verbal and tactile cues Gait Training Gait Activity Gait speed training Description 170' x2 Comments 170' time: 140.5 (1.21 ft/sec ); 120 (1.42 ft/sec) PT-OP-T Assessment and Plan Start: 05/23/18 11:25 Freq: Status: Active Protocol: Document 07/26/18 09:45 DCW (Rec: 07/26/18 10:32 DCW [id number]) Physical Therapy Assessment Impairments Impairments Activity Tolerance Functional Activities Functional Mobility Gait Posture ROM Strength Goals Four Impairment Peterson Balance Scale Intermediate Goal (LTG) Pt to score at least 47/56 on Peterson Balance Scale LTG Duration 09/20/18 Three Impairment LE MMT Intermediate Goal (LTG) PT LE MMT grossly 4/5 LTG Duration 09/20/18 Two Impairment Gait speed Intermediate Goal (LTG) Pt gait speed to 1.11 ft/sec ( 6 MWT distance of 400'). LTG Duration 09/20/18 One Impairment Pt does not have an appropriate home exercise program Short Term Goal (STG) Pt to be independent and compliant with an appropriate HEP STG Duration 08/23/18 Assessment Summary Assessment Pt beginning to increase gait speed again, although she requires verbal cues to increase gait speed and increase step length, however while increasing speed, she does not lose her balance as easily, and appears to walk with increased stability. Physical Therapy Plan Frequency and Duration Frequency of Treatment 2x/Week Duration of Treatment 12 weeks Plan of Care Start Date 07/23/18 Plan of Care End Date 10/15/18 Therapeutic Interventions Therapeutic Interventions Balance Training Gait Training Home Exercise Program Joint Mobilizations Manual Therapy Neuromuscular Re-education Patient/Caregiver Education Self-Care/Home Management Therapeutic Activities Therapeutic Exercises Modalities Cold Pack/Ice Massage Hot Packs Next Visit Focus/Plan Next Note Type Treatment Note Next Visit Plan Balance training, gait training, improving posture.
--- NOTE | 2018-08-03 11:17 | PT.OTN ---
Current Diagnoses Other abnormalities of gait and mobility (08/03/18) Weakness (08/03/18) Physical Therapy Treatment Note PT-OP-A Visit Information Start: 05/23/18 11:25 Freq: Status: Active Protocol: Document 08/03/18 10:30 DCW (Rec: 08/03/18 11:17 DCW [id number]) Out-Patient Physical Therapy Visit Information Visit Information Visit Type Treatment Note Visit Start Time 10:30 Visit Stop Time 11:15 Total Visit Minutes 45 Visit Number 10 Number of DONATION SPECIALIST Visits 0 Evaluation Information Evaluation Date 05/22/18 PT-OP-B Current Condition Start: 05/23/18 11:25 Freq: Status: Active Protocol: Document 07/23/18 09:45 DCW (Rec: 07/23/18 10:43 DCW [id number]) Current Condition History of Current Condition Onset Date Multi-year history Current Complaints Imbalance, weakness, fatigue, poor posture History of Current Condition Pt is a 78 year old female well known to this clinic presenting with complaints of imbalance and weakness, whcih she has previously been treated for with varying degrees of success. Pt reports she back has been hurting more recently and she feels it is impacting her posture, and admits her gait speed has dramatically declined since her last round of physical therapy. Pt notes an increased fear of falling, and during a recent trip to [facility], used a wheelchair to get around so she did not slow down the rest of her family. 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 Pt discharged with orders to continue prior PT/OT/ST as previously ordered. Treatment Goals Patient/Caregiver Goals Increase gait speed, improve posture, strengthen legs Prior Functional Status Baseline Function- ADL's Modified Independent Baseline Function- Mobility Modified Independent Current Functional Impairments (Reported) Functional Limitations- Mobility/Gait Very slow gait art, fear of falling, difficulty walking anywhere due to increased time taken to get around. PT-OP-C Subjective Start: 05/23/18 11:25 Freq: Status: Active Protocol: Document 08/03/18 10:30 DCW (Rec: 08/03/18 11:17 DCW [id number]) OP-PT Subjective Patient Comments Patient Comments Pt apologizes for missing her last appointment, notes she was just too slow moving in the morning to get here in time. PT-OP-D Balance Start: 05/23/18 11:25 Freq: Status: Active Protocol: Document 07/23/18 09:45 DCW (Rec: 07/23/18 10:39 DCW [id number]) Balance Tests Peterson Balance Test Peterson Balance Test Score 42/56 Peterson Impairment Rating 20 to 39% Impaired (Score 34- 44) Peterson Balance Assessment Evaluation Sitting to Standing Ability Independent w/Hands Unsupported Stance Safely- 2 minutes Sitting Unsupported, Feet on Floor Safely- 2 minutes Standing to Sitting Ability Assist, Control w/Hands Transfer Ability Safely, Hand Use Unsupported Stance- Eyes Closed Safely, 10 seconds Unsupported Stance- Eyes Open Independent, 1 minute Reaching Forward Standing Safely, 5 inches Pick- Up Object From Floor Independent/Safe Look Behind Shoulder - Standing Shifts Weight Unilateral Turning 360 Degrees Turns slowly, but safely Unsupported Stance, Alternating Feet on 4 Steps w/Supervision Stair Unsupported Tandem Stance Small Step- 30 seconds Unilateral Leg Stance Lifts Leg/Unable to Hold Total Score Peterson Total Score (out of 56 points) 42 Peterson Impairment Rating 20 to 39% Impaired (Score 34- 44) PT-OP-E Functional Tests Start: 05/23/18 11:25 Freq: Status: Active Protocol: Document 07/23/18 09:45 DCW (Rec: 07/23/18 10:39 DCW [id number]) Functional Tests 6 Minute Walk Test Distance 227' in 3:44 Device Used Two walking sticks Comments 1.01 ft/sec Timed Up and Go (TUG) Score 26.16 seconds Comments 3-trial average TUG Impairment Rating 100% Impaired (Score 20) PT-OP-M Strength Start: 05/23/18 11:25 Freq: Status: Active Protocol: Document 07/23/18 09:45 DCW (Rec: 07/23/18 10:39 DCW [id number]) Hip Strength Hip Manual Muscle Testing Right Flexion (L2) 4+ Good+ Abduction 4 Good Adduction 4 Good External Rotation 4 Good Internal Rotation 4+ Good+ Left Flexion (L2) 4 Good Abduction 4 Good Adduction 4 Good External Rotation 4- Good- Internal Rotation 4+ Good+ Knee Strength Knee Manual Muscle Testing Right Flexion (S2) 4 Good Extension (L3) 4- Good- Left Flexion (S2) 4 Good Extension (L3) 4- Good- Ankle/Foot Strength Ankle and Foot Manual Muscle Testing Right Dorsiflexion (L4) 4- Good- Plantarflexion (S1) 4- Good- Left Dorsiflexion (L4) 4- Good- Plantarflexion (S1) 4- Good- PT-OP-Q Treatments Start: 05/23/18 11:25 Freq: Status: Active Protocol: Document 08/03/18 10:30 DCW (Rec: 08/03/18 11:15 DCW [id number]) Cardio Equipment Recumbent Bicycle Duration (Minutes) 5 Resistance 4 Seat Position 6 Therapeutic Exercises Sitting Exercises Shoulder Horizontal Adduction Sitting Exercise Name Horizontal Adduction Side bilateral Resistance Lv 2 Equipment Used T-band Reps/Minutes x20 Chest Press Sitting Exercise Name Chest press with wand Resistance #2 Horizontal shoulder Abduction Sitting Exercise Name Horizontal Abduction Side bilateral Resistance Lv 2 Equipment Used T-band Reps/Minutes x20 Standing Exercises Rows Standing Exercise Name Rows Side bilateral Resistance Lv 2 Equipment Used T-band Shoulder Extension Standing Exercise Name Extension Side bilateral Resistance Lv 2 Equipment Used T-band Hurdles Standing Exercise Name Hurdles @ rail Resistance 2# Equipment Used Ankle weights Comments Forward/Side-stepping Gait Training Gait Activity Gait speed training Description 170' x2 Comments 170' time: 118 (1.44 ft/sec); 102 (1.67 ft/sec) PT-OP-T Assessment and Plan Start: 05/23/18 11:25 Freq: Status: Active Protocol: Document 08/03/18 10:30 DCW (Rec: 08/03/18 11:15 DCW [id number]) Physical Therapy Assessment Impairments Impairments Activity Tolerance Functional Activities Functional Mobility Gait Posture ROM Strength Goals Four Impairment Peterson Balance Scale Director Retirement Goal (LTG) Pt to score at least 47/56 on Peterson Balance Scale LTG Duration 09/20/18 Three Impairment LE MMT Halfway Goal (LTG) PT LE MMT grossly 4/5 LTG Duration 09/20/18 Two Impairment Gait speed Halfway Goal (LTG) Pt gait speed to 1.11 ft/sec ( 6 MWT distance of 400'). LTG Duration 09/20/18 One Impairment Pt does not have an appropriate home exercise program Short Term Goal (STG) Pt to be independent and compliant with an appropriate HEP STG Duration 08/23/18 Assessment Summary Assessment Gait speed continues to improve as she recovers from her most recent CVA. Physical Therapy Plan Frequency and Duration Frequency of Treatment 2x/Week Duration of Treatment 12 weeks Plan of Care Start Date 07/23/18 Plan of Care End Date 10/15/18 Therapeutic Interventions Therapeutic Interventions Balance Training Gait Training Home Exercise Program Joint Mobilizations Manual Therapy Neuromuscular Re-education Patient/Caregiver Education Self-Care/Home Management Therapeutic Activities Therapeutic Exercises Modalities Cold Pack/Ice Massage Hot Packs Next Visit Focus/Plan Next Note Type Treatment Note Next Visit Plan Balance training, gait training, improving posture.
--- NOTE | 2018-08-07 11:22 | PT.OTN ---
Current Diagnoses Other abnormalities of gait and mobility (08/07/18) Weakness (08/07/18) Physical Therapy Treatment Note PT-OP-A Visit Information Start: 05/23/18 11:25 Freq: Status: Active Protocol: Document 08/07/18 10:30 DCW (Rec: 08/07/18 11:22 DCW [id number]) Out-Patient Physical Therapy Visit Information Visit Information Visit Type Treatment Note Visit Start Time 10:30 Visit Stop Time 11:15 Total Visit Minutes 45 Visit Number 11 Number of BAR POINTER Visits 0 Evaluation Information Evaluation Date 05/22/18 PT-OP-B Current Condition Start: 05/23/18 11:25 Freq: Status: Active Protocol: Document 07/23/18 09:45 DCW (Rec: 07/23/18 10:43 DCW [id number]) Current Condition History of Current Condition Onset Date Multi-year history Current Complaints Imbalance, weakness, fatigue, poor posture History of Current Condition Pt is a 78 year old female well known to this clinic presenting with complaints of imbalance and weakness, whcih she has previously been treated for with varying degrees of success. Pt reports she back has been hurting more recently and she feels it is impacting her posture, and admits her gait speed has dramatically declined since her last round of physical therapy. Pt notes an increased fear of falling, and during a recent trip to [facility], used a wheelchair to get around so she did not slow down the rest of her family. 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 Pt discharged with orders to continue prior PT/OT/ST as previously ordered. Treatment Goals Patient/Caregiver Goals Increase gait speed, improve posture, strengthen legs Prior Functional Status Baseline Function- ADL's Modified Independent Baseline Function- Mobility Modified Independent Current Functional Impairments (Reported) Functional Limitations- Mobility/Gait Very slow gait art, fear of falling, difficulty walking anywhere due to increased time taken to get around. PT-OP-C Subjective Start: 05/23/18 11:25 Freq: Status: Active Protocol: Document 08/07/18 10:30 DCW (Rec: 08/07/18 11:22 DCW [id number]) OP-PT Subjective Patient Comments Patient Comments Pt doing well today, but feeling slow. PT-OP-D Balance Start: 05/23/18 11:25 Freq: Status: Active Protocol: Document 07/23/18 09:45 DCW (Rec: 07/23/18 10:39 DCW [id number]) Balance Tests Peterson Balance Test Peterson Balance Test Score 42/56 Peterson Impairment Rating 20 to 39% Impaired (Score 34- 44) Peterson Balance Assessment Evaluation Sitting to Standing Ability Independent w/Hands Unsupported Stance Safely- 2 minutes Sitting Unsupported, Feet on Floor Safely- 2 minutes Standing to Sitting Ability Assist, Control w/Hands Transfer Ability Safely, Hand Use Unsupported Stance- Eyes Closed Safely, 10 seconds Unsupported Stance- Eyes Open Independent, 1 minute Reaching Forward Standing Safely, 5 inches Pick- Up Object From Floor Independent/Safe Look Behind Shoulder - Standing Shifts Weight Unilateral Turning 360 Degrees Turns slowly, but safely Unsupported Stance, Alternating Feet on 4 Steps w/Supervision Stair Unsupported Tandem Stance Small Step- 30 seconds Unilateral Leg Stance Lifts Leg/Unable to Hold Total Score Peterson Total Score (out of 56 points) 42 Peterson Impairment Rating 20 to 39% Impaired (Score 34- 44) PT-OP-E Functional Tests Start: 05/23/18 11:25 Freq: Status: Active Protocol: Document 07/23/18 09:45 DCW (Rec: 07/23/18 10:39 DCW [id number]) Functional Tests 6 Minute Walk Test Distance 227' in 3:44 Device Used Two walking sticks Comments 1.01 ft/sec Timed Up and Go (TUG) Score 26.16 seconds Comments 3-trial average TUG Impairment Rating 100% Impaired (Score 20) PT-OP-M Strength Start: 05/23/18 11:25 Freq: Status: Active Protocol: Document 07/23/18 09:45 DCW (Rec: 07/23/18 10:39 DCW [id number]) Hip Strength Hip Manual Muscle Testing Right Flexion (L2) 4+ Good+ Abduction 4 Good Adduction 4 Good External Rotation 4 Good Internal Rotation 4+ Good+ Left Flexion (L2) 4 Good Abduction 4 Good Adduction 4 Good External Rotation 4- Good- Internal Rotation 4+ Good+ Knee Strength Knee Manual Muscle Testing Right Flexion (S2) 4 Good Extension (L3) 4- Good- Left Flexion (S2) 4 Good Extension (L3) 4- Good- Ankle/Foot Strength Ankle and Foot Manual Muscle Testing Right Dorsiflexion (L4) 4- Good- Plantarflexion (S1) 4- Good- Left Dorsiflexion (L4) 4- Good- Plantarflexion (S1) 4- Good- PT-OP-Q Treatments Start: 05/23/18 11:25 Freq: Status: Active Protocol: Document 08/07/18 10:30 DCW (Rec: 08/07/18 11:22 DCW [id number]) Cardio Equipment Upper Body Ergometer (UBE) Duration (Minutes) 5 Seat Position 11 Height 2.5 Other RPM as tolerated Therapeutic Exercises Sitting Exercises Marching Sitting Exercise Name Seated Marching Side bilateral Resistance 4# LAQ Sitting Exercise Name LAQ Side bilateral Resistance 4# Shoulder Horizontal Adduction Sitting Exercise Name Horizontal Adduction Side bilateral Resistance Lv 2 Equipment Used T-band Reps/Minutes x20 Chest Press Sitting Exercise Name Chest press with wand Resistance #2 Horizontal shoulder Abduction Sitting Exercise Name Horizontal Abduction Side bilateral Resistance Lv 2 Equipment Used T-band Reps/Minutes x20 Standing Exercises Hurdles Standing Exercise Name Hurdles @ rail Resistance 2# Equipment Used Ankle weights Comments Forward/Side-stepping Gait Training Gait Activity Gait speed training Description 170' x2 Comments 170' time: 121 (1.40 ft/sec); 108 (1.57 ft/sec) PT-OP-T Assessment and Plan Start: 05/23/18 11:25 Freq: Status: Active Protocol: Document 08/07/18 10:30 DCW (Rec: 08/07/18 11:22 DCW [id number]) Physical Therapy Assessment Impairments Impairments Activity Tolerance Functional Activities Functional Mobility Gait Posture ROM Strength Goals Four Impairment Peterson Balance Scale Bake Room Worker Goal (LTG) Pt to score at least 47/56 on Peterson Balance Scale LTG Duration 09/20/18 Three Impairment LE MMT Bake Room Worker Goal (LTG) PT LE MMT grossly 4/5 LTG Duration 09/20/18 Two Impairment Gait speed Halfway Goal (LTG) Pt gait speed to 1.11 ft/sec ( 6 MWT distance of 400'). LTG Duration 09/20/18 One Impairment Pt does not have an appropriate home exercise program Short Term Goal (STG) Pt to be independent and compliant with an appropriate HEP STG Duration 2/7/19 Assessment Summary Assessment Pt gait speed when not in therapy and being told to walk with an increased art has not seemed to improve, however when she is instructed to speed up, she is able to with no imbalance or pain, but does fatigue quickly. Physical Therapy Plan Frequency and Duration Frequency of Treatment 2x/Week Duration of Treatment 12 weeks Plan of Care Start Date 07/23/18 Plan of Care End Date 10/15/18 Therapeutic Interventions Therapeutic Interventions Balance Training Gait Training Home Exercise Program Joint Mobilizations Manual Therapy Neuromuscular Re-education Patient/Caregiver Education Self-Care/Home Management Therapeutic Activities Therapeutic Exercises Modalities Cold Pack/Ice Massage Hot Packs Next Visit Focus/Plan Next Note Type Treatment Note Next Visit Plan Balance training, gait training, improving posture.
--- NOTE | 2018-08-10 11:15 | PT.OTN ---
Current Diagnoses Other abnormalities of gait and mobility (08/10/18) Weakness (08/10/18) Physical Therapy Treatment Note PT-OP-A Visit Information Start: 05/23/18 11:25 Freq: Status: Active Protocol: Document 08/10/18 10:30 DCW (Rec: 08/10/18 11:15 DCW [id number]) Out-Patient Physical Therapy Visit Information Visit Information Visit Type Treatment Note Visit Start Time 10:30 Visit Stop Time 11:15 Total Visit Minutes 45 Visit Number 12 Number of EXECUTIVE DIRECTOR GLOBAL BRAND MARKETING Visits 0 Evaluation Information Evaluation Date 05/22/18 PT-OP-B Current Condition Start: 05/23/18 11:25 Freq: Status: Active Protocol: Document 07/23/18 09:45 DCW (Rec: 07/23/18 10:43 DCW [id number]) Current Condition History of Current Condition Onset Date Multi-year history Current Complaints Imbalance, weakness, fatigue, poor posture History of Current Condition Pt is a 78 year old female well known to this clinic presenting with complaints of imbalance and weakness, whcih she has previously been treated for with varying degrees of success. Pt reports she back has been hurting more recently and she feels it is impacting her posture, and admits her gait speed has dramatically declined since her last round of physical therapy. Pt notes an increased fear of falling, and during a recent trip to [facility], used a wheelchair to get around so she did not slow down the rest of her family. 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 Pt discharged with orders to continue prior PT/OT/ST as previously ordered. Treatment Goals Patient/Caregiver Goals Increase gait speed, improve posture, strengthen legs Prior Functional Status Baseline Function- ADL's Modified Independent Baseline Function- Mobility Modified Independent Current Functional Impairments (Reported) Functional Limitations- Mobility/Gait Very slow gait art, fear of falling, difficulty walking anywhere due to increased time taken to get around. PT-OP-C Subjective Start: 05/23/18 11:25 Freq: Status: Active Protocol: Document 08/10/18 10:30 DCW (Rec: 08/10/18 11:15 DCW [id number]) OP-PT Subjective Patient Comments Patient Comments Pt again reports she is having trouble getting moving this morning. PT-OP-D Balance Start: 05/23/18 11:25 Freq: Status: Active Protocol: Document 07/23/18 09:45 DCW (Rec: 07/23/18 10:39 DCW [id number]) Balance Tests Peterson Balance Test Peterson Balance Test Score 42/56 Peterson Impairment Rating 20 to 39% Impaired (Score 34- 44) Peterson Balance Assessment Evaluation Sitting to Standing Ability Independent w/Hands Unsupported Stance Safely- 2 minutes Sitting Unsupported, Feet on Floor Safely- 2 minutes Standing to Sitting Ability Assist, Control w/Hands Transfer Ability Safely, Hand Use Unsupported Stance- Eyes Closed Safely, 10 seconds Unsupported Stance- Eyes Open Independent, 1 minute Reaching Forward Standing Safely, 5 inches Pick- Up Object From Floor Independent/Safe Look Behind Shoulder - Standing Shifts Weight Unilateral Turning 360 Degrees Turns slowly, but safely Unsupported Stance, Alternating Feet on 4 Steps w/Supervision Stair Unsupported Tandem Stance Small Step- 30 seconds Unilateral Leg Stance Lifts Leg/Unable to Hold Total Score Peterson Total Score (out of 56 points) 42 Peterson Impairment Rating 20 to 39% Impaired (Score 34- 44) PT-OP-E Functional Tests Start: 05/23/18 11:25 Freq: Status: Active Protocol: Document 07/23/18 09:45 DCW (Rec: 07/23/18 10:39 DCW [id number]) Functional Tests 6 Minute Walk Test Distance 227' in 3:44 Device Used Two walking sticks Comments 1.01 ft/sec Timed Up and Go (TUG) Score 26.16 seconds Comments 3-trial average TUG Impairment Rating 100% Impaired (Score 20) PT-OP-M Strength Start: 05/23/18 11:25 Freq: Status: Active Protocol: Document 07/23/18 09:45 DCW (Rec: 07/23/18 10:39 DCW [id number]) Hip Strength Hip Manual Muscle Testing Right Flexion (L2) 4+ Good+ Abduction 4 Good Adduction 4 Good External Rotation 4 Good Internal Rotation 4+ Good+ Left Flexion (L2) 4 Good Abduction 4 Good Adduction 4 Good External Rotation 4- Good- Internal Rotation 4+ Good+ Knee Strength Knee Manual Muscle Testing Right Flexion (S2) 4 Good Extension (L3) 4- Good- Left Flexion (S2) 4 Good Extension (L3) 4- Good- Ankle/Foot Strength Ankle and Foot Manual Muscle Testing Right Dorsiflexion (L4) 4- Good- Plantarflexion (S1) 4- Good- Left Dorsiflexion (L4) 4- Good- Plantarflexion (S1) 4- Good- PT-OP-Q Treatments Start: 05/23/18 11:25 Freq: Status: Active Protocol: Document 08/10/18 10:30 DCW (Rec: 08/10/18 11:15 DCW [id number]) Therapeutic Exercises Sitting Exercises Hamstring Curls Sitting Exercise Name Hamstring Curls Side bilateral Resistance Lv 2 Equipment Used T-band Reps/Minutes x20 Hip Abduction Sitting Exercise Name Hip Abduction Side bilateral Resistance Lv 2 Equipment Used T-band Reps/Minutes x20 Marching Sitting Exercise Name Seated Marching Side bilateral Resistance 4# LAQ Sitting Exercise Name LAQ Side bilateral Resistance 4# Shoulder Horizontal Adduction Sitting Exercise Name Horizontal Adduction Side bilateral Resistance Lv 2 Equipment Used T-band Reps/Minutes x20 Chest Press Sitting Exercise Name Chest press with wand Resistance #2 Horizontal shoulder Abduction Sitting Exercise Name Horizontal Abduction Side bilateral Resistance Lv 2 Equipment Used T-band Reps/Minutes x20 Standing Exercises Toe-taps Standing Exercise Name Toe-taps Side bilateral Resistance 2# Equipment Used 6 step Rows Standing Exercise Name Rows Side bilateral Resistance Lv 2 Equipment Used T-band Shoulder Extension Standing Exercise Name Extension Side bilateral Resistance Lv 2 Equipment Used T-band Gait Training Gait Activity Gait speed training Description 170' x3 Comments 170' time: 140.8 (1.21 ft/sec ); 104.5 (1.63 ft/sec); 115.7 (1.47 ft/sec PT-OP-T Assessment and Plan Start: 05/23/18 11:25 Freq: Status: Active Protocol: Document 08/10/18 10:30 DCW (Rec: 08/10/18 11:15 DCW [id number]) Physical Therapy Assessment Impairments Impairments Activity Tolerance Functional Activities Functional Mobility Gait Posture ROM Strength Goals Four Impairment Peterson Balance Scale Care Home Goal (LTG) Pt to score at least 47/56 on Peterson Balance Scale LTG Duration 09/20/18 Three Impairment LE MMT Shop Tailor Apprentice Goal (LTG) PT LE MMT grossly 4/5 LTG Duration 09/20/18 Two Impairment Gait speed Care Home Goal (LTG) Pt gait speed to 1.11 ft/sec ( 6 MWT distance of 400'). LTG Duration 09/20/18 One Impairment Pt does not have an appropriate home exercise program Short Term Goal (STG) Pt to be independent and compliant with an appropriate HEP STG Duration 08/23/18 Assessment Summary Assessment Pt continues to struggle keeping up gait speed without near-constant reminders. Physical Therapy Plan Frequency and Duration Frequency of Treatment 2x/Week Duration of Treatment 12 weeks Plan of Care Start Date 07/23/18 Plan of Care End Date 10/15/18 Therapeutic Interventions Therapeutic Interventions Balance Training Gait Training Home Exercise Program Joint Mobilizations Manual Therapy Neuromuscular Re-education Patient/Caregiver Education Self-Care/Home Management Therapeutic Activities Therapeutic Exercises Modalities Cold Pack/Ice Massage Hot Packs Next Visit Focus/Plan Next Note Type Treatment Note Next Visit Plan Balance training, gait training, improving posture.
--- NOTE | 2018-08-14 11:03 | PT.OTN ---
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 Pt reports she back has been hurting more recently and she feels it is impacting her posture, and admits her gait speed has dramatically declined since her last round of physical therapy. Pt notes an increased fear of falling, and during a recent trip to [facility], used a wheelchair to get around so she did not slow down the rest of her family. 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 Pt discharged with orders to continue prior PT/OT/ST as previously ordered. Treatment Goals Patient/Caregiver Goals Increase gait speed, improve posture, strengthen legs Prior Functional Status Baseline Function- ADL's Modified Independent Baseline Function- Mobility Modified Independent Current Functional Impairments (Reported) Functional Limitations- Mobility/Gait Very slow gait art, fear of falling, difficulty walking anywhere due to increased time taken to get around. PT-OP-C Subjective Start: 05/23/18 11:25 Freq: Status: Active Protocol: Document 08/14/18 10:35 DCW (Rec: 08/14/18 11:03 DCW [id number]) OP-PT Subjective Patient Comments Patient Comments Pt reports I puked up my breakfast and I feel shakey today, but at the same time notes that she is fine and willing to work today. PT-OP-D Balance Start: 05/23/18 11:25 Freq: Status: Active Protocol: Document 07/23/18 09:45 DCW (Rec: 07/23/18 10:39 DCW [id number]) Balance Tests Peterson Balance Test Peterson Balance Test Score 42/56 Peterson Impairment Rating 20 to 39% Impaired (Score 34- 44) Peterson Balance Assessment Evaluation Sitting to Standing Ability Independent w/Hands Unsupported Stance Safely- 2 minutes Sitting Unsupported, Feet on Floor Safely- 2 minutes Standing to Sitting Ability Assist, Control w/Hands Transfer Ability Safely, Hand Use Unsupported Stance- Eyes Closed Safely, 10 seconds Unsupported Stance- Eyes Open Independent, 1 minute Reaching Forward Standing Safely, 5 inches Pick- Up Object From Floor Independent/Safe Look Behind Shoulder - Standing Shifts Weight Unilateral Turning 360 Degrees Turns slowly, but safely Unsupported Stance, Alternating Feet on 4 Steps w/Supervision Stair Unsupported Tandem Stance Small Step- 30 seconds Unilateral Leg Stance Lifts Leg/Unable to Hold Total Score Peterson Total Score (out of 56 points) 42 Peterson Impairment Rating 20 to 39% Impaired (Score 34- 44) PT-OP-E Functional Tests Start: 05/23/18 11:25 Freq: Status: Active Protocol: Document 07/23/18 09:45 DCW (Rec: 07/23/18 10:39 DCW [id number]) Functional Tests 6 Minute Walk Test Distance 227' in 3:44 Device Used Two walking sticks Comments 1.01 ft/sec Timed Up and Go (TUG) Score 26.16 seconds Comments 3-trial average TUG Impairment Rating 100% Impaired (Score 20) PT-OP-M Strength Start: 05/23/18 11:25 Freq: Status: Active Protocol: Document 07/23/18 09:45 DCW (Rec: 07/23/18 10:39 DCW [id number]) Hip Strength Hip Manual Muscle Testing Right Flexion (L2) 4+ Good+ Abduction 4 Good Adduction 4 Good External Rotation 4 Good Internal Rotation 4+ Good+ Left Flexion (L2) 4 Good Abduction 4 Good Adduction 4 Good External Rotation 4- Good- Internal Rotation 4+ Good+ Knee Strength Knee Manual Muscle Testing Right Flexion (S2) 4 Good Extension (L3) 4- Good- Left Flexion (S2) 4 Good Extension (L3) 4- Good- Ankle/Foot Strength Ankle and Foot Manual Muscle Testing Right Dorsiflexion (L4) 4- Good- Plantarflexion (S1) 4- Good- Left Dorsiflexion (L4) 4- Good- Plantarflexion (S1) 4- Good- PT-OP-Q Treatments Start: 05/23/18 11:25 Freq: Status: Active Protocol: Document 08/14/18 10:35 DCW (Rec: 08/14/18 11:03 DCW [id number]) Cardio Equipment Upper Body Ergometer (UBE) Duration (Minutes) 5 Seat Position 11 Height 2.5 Other RPM as tolerated Gym Equipment Shuttle Recovery Unilateral Squats Resistance 37# Bilateral Squats Resistance 50# Shuttle Recovery Platform Stable Gait Training Gait Activity Gait speed training Description 170' x1 Comments 170' time: 162 (1.05 ft/sec); 104.5 (1.63 ft/sec); 115.7 (1.47 ft/sec PT-OP-T Assessment and Plan Start: 05/23/18 11:25 Freq: Status: Active Protocol: Document 08/14/18 10:35 DCW (Rec: 08/14/18 11:03 DCW [id number]) Physical Therapy Assessment Impairments Impairments Activity Tolerance Functional Activities Functional Mobility Gait Posture ROM Strength Goals Four Impairment Peterson Balance Scale Building Specialist Goal (LTG) Pt to score at least 47/56 on Peterson Balance Scale LTG Duration 09/20/18 Three Impairment LE MMT Correction Goal (LTG) PT LE MMT grossly 4/5 LTG Duration 09/20/18 Two Impairment Gait speed Correction Goal (LTG) Pt gait speed to 1.11 ft/sec ( 6 MWT distance of 400'). LTG Duration 09/20/18 One Impairment Pt does not have an appropriate home exercise program Short Term Goal (STG) Pt to be independent and compliant with an appropriate HEP STG Duration 08/23/18 Assessment Summary Assessment Pt had her slowest lap time since her initial evaluation, with a speed of 1.05 ft/sec, and was clearly not feeling well, and eventually decided to leave 15 minutes early. Physical Therapy Plan Frequency and Duration Frequency of Treatment 2x/Week Duration of Treatment 12 weeks Plan of Care Start Date 07/23/18 Plan of Care End Date 10/15/18 Therapeutic Interventions Therapeutic Interventions Balance Training Gait Training Home Exercise Program Joint Mobilizations Manual Therapy Neuromuscular Re-education Patient/Caregiver Education Self-Care/Home Management Therapeutic Activities Therapeutic Exercises Modalities Cold Pack/Ice Massage Hot Packs Next Visit Focus/Plan Next Note Type Treatment Note Next Visit Plan Balance training, gait training, improving posture.
--- NOTE | 2018-08-17 11:15 | PT.OTN ---
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 Pt reports she back has been hurting more recently and she feels it is impacting her posture, and admits her gait speed has dramatically declined since her last round of physical therapy. Pt notes an increased fear of falling, and during a recent trip to [facility], used a wheelchair to get around so she did not slow down the rest of her family. 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 Pt discharged with orders to continue prior PT/OT/ST as previously ordered. Treatment Goals Patient/Caregiver Goals Increase gait speed, improve posture, strengthen legs Prior Functional Status Baseline Function- ADL's Modified Independent Baseline Function- Mobility Modified Independent Current Functional Impairments (Reported) Functional Limitations- Mobility/Gait Very slow gait art, fear of falling, difficulty walking anywhere due to increased time taken to get around. PT-OP-C Subjective Start: 05/23/18 11:25 Freq: Status: Active Protocol: Document 08/17/18 10:30 DCW (Rec: 08/17/18 11:15 DCW [id number]) OP-PT Subjective Patient Comments Patient Comments Pt reports that she feels much better today, thinks she just gagged on my medicine on Monday, and was just low energy the rest of the day. PT-OP-D Balance Start: 05/23/18 11:25 Freq: Status: Active Protocol: Document 07/23/18 09:45 DCW (Rec: 07/23/18 10:39 DCW [id number]) Balance Tests Peterson Balance Test Peterson Balance Test Score 42/56 Peterson Impairment Rating 20 to 39% Impaired (Score 34- 44) Peterson Balance Assessment Evaluation Sitting to Standing Ability Independent w/Hands Unsupported Stance Safely- 2 minutes Sitting Unsupported, Feet on Floor Safely- 2 minutes Standing to Sitting Ability Assist, Control w/Hands Transfer Ability Safely, Hand Use Unsupported Stance- Eyes Closed Safely, 10 seconds Unsupported Stance- Eyes Open Independent, 1 minute Reaching Forward Standing Safely, 5 inches Pick- Up Object From Floor Independent/Safe Look Behind Shoulder - Standing Shifts Weight Unilateral Turning 360 Degrees Turns slowly, but safely Unsupported Stance, Alternating Feet on 4 Steps w/Supervision Stair Unsupported Tandem Stance Small Step- 30 seconds Unilateral Leg Stance Lifts Leg/Unable to Hold Total Score Peterson Total Score (out of 56 points) 42 Peterson Impairment Rating 20 to 39% Impaired (Score 34- 44) PT-OP-E Functional Tests Start: 05/23/18 11:25 Freq: Status: Active Protocol: Document 07/23/18 09:45 DCW (Rec: 07/23/18 10:39 DCW [id number]) Functional Tests 6 Minute Walk Test Distance 227' in 3:44 Device Used Two walking sticks Comments 1.01 ft/sec Timed Up and Go (TUG) Score 26.16 seconds Comments 3-trial average TUG Impairment Rating 100% Impaired (Score 20) PT-OP-M Strength Start: 05/23/18 11:25 Freq: Status: Active Protocol: Document 07/23/18 09:45 DCW (Rec: 07/23/18 10:39 DCW [id number]) Hip Strength Hip Manual Muscle Testing Right Flexion (L2) 4+ Good+ Abduction 4 Good Adduction 4 Good External Rotation 4 Good Internal Rotation 4+ Good+ Left Flexion (L2) 4 Good Abduction 4 Good Adduction 4 Good External Rotation 4- Good- Internal Rotation 4+ Good+ Knee Strength Knee Manual Muscle Testing Right Flexion (S2) 4 Good Extension (L3) 4- Good- Left Flexion (S2) 4 Good Extension (L3) 4- Good- Ankle/Foot Strength Ankle and Foot Manual Muscle Testing Right Dorsiflexion (L4) 4- Good- Plantarflexion (S1) 4- Good- Left Dorsiflexion (L4) 4- Good- Plantarflexion (S1) 4- Good- PT-OP-Q Treatments Start: 05/23/18 11:25 Freq: Status: Active Protocol: Document 08/17/18 10:30 DCW (Rec: 08/17/18 11:15 DCW [id number]) Cardio Equipment Upper Body Ergometer (UBE) Duration (Minutes) 5 Seat Position 12 Height 2 Other RPM as tolerated Gym Equipment Shuttle Recovery Unilateral Squats Resistance 37# Shuttle Recovery Platform Stable Bilateral Squats Resistance 50# Shuttle Recovery Platform Stable Therapeutic Exercises Sitting Exercises Rows Sitting Exercise Name Rows Side bilateral Resistance Lv 2 Equipment Used T-band Hamstring Curls Sitting Exercise Name Hamstring Curls Side bilateral Resistance Lv 2 Equipment Used T-band Reps/Minutes x20 Hip Abduction Sitting Exercise Name Hip Abduction Side bilateral Resistance Lv 2 Equipment Used T-band Reps/Minutes x20 Marching Sitting Exercise Name Seated Marching Side bilateral Resistance 4# LAQ Sitting Exercise Name LAQ Side bilateral Resistance 4# Shoulder Horizontal Adduction Sitting Exercise Name Horizontal Adduction Side bilateral Resistance Lv 2 Equipment Used T-band Reps/Minutes x20 Chest Press Sitting Exercise Name Chest press with wand Resistance #2 Gait Training Gait Activity Gait speed training Description 170' x2 Comments 170' time: 121.7 (1.40 ft/sec ); 119.2 (1.43 ft/sec) PT-OP-T Assessment and Plan Start: 05/23/18 11:25 Freq: Status: Active Protocol: Document 08/17/18 10:30 DCW (Rec: 08/17/18 11:15 DCW [id number]) Physical Therapy Assessment Impairments Impairments Activity Tolerance Functional Activities Functional Mobility Gait Posture ROM Strength Goals Four Impairment Peterson Balance Scale Site Manager Goal (LTG) Pt to score at least 47/56 on Peterson Balance Scale LTG Duration 09/20/18 Three Impairment LE MMT Site Manager Goal (LTG) PT LE MMT grossly 4/5 LTG Duration 09/20/18 Two Impairment Gait speed Site Manager Goal (LTG) Pt gait speed to 1.11 ft/sec ( 6 MWT distance of 400'). LTG Duration 09/20/18 One Impairment Pt does not have an appropriate home exercise program Short Term Goal (STG) Pt to be independent and compliant with an appropriate HEP STG Duration 08/23/18 Assessment Summary Assessment Pt struggling to return to her prior highest walking speed, seeming to plateau around ~1.4 ft/sec. Physical Therapy Plan Frequency and Duration Frequency of Treatment 2x/Week Duration of Treatment 12 weeks Plan of Care Start Date 07/23/18 Plan of Care End Date 10/15/18 Therapeutic Interventions Therapeutic Interventions Balance Training Gait Training Home Exercise Program Joint Mobilizations Manual Therapy Neuromuscular Re-education Patient/Caregiver Education Self-Care/Home Management Therapeutic Activities Therapeutic Exercises Modalities Cold Pack/Ice Massage Hot Packs Next Visit Focus/Plan Next Note Type Treatment Note Next Visit Plan Balance training, gait training, improving posture.
--- NOTE | 2018-09-05 14:29 | PT.OTN ---
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 Pt reports she back has been hurting more recently and she feels it is impacting her posture, and admits her gait speed has dramatically declined since her last round of physical therapy. Pt notes an increased fear of falling, and during a recent trip to [facility], used a wheelchair to get around so she did not slow down the rest of her family. 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 Pt discharged with orders to continue prior PT/OT/ST as previously ordered. Treatment Goals Patient/Caregiver Goals Increase gait speed, improve posture, strengthen legs Prior Functional Status Baseline Function- ADL's Modified Independent Baseline Function- Mobility Modified Independent Current Functional Impairments (Reported) Functional Limitations- Mobility/Gait Very slow gait art, fear of falling, difficulty walking anywhere due to increased time taken to get around. PT-OP-C Subjective Start: 05/23/18 11:25 Freq: Status: Active Protocol: Document 09/05/18 13:45 DCW (Rec: 09/05/18 14:29 DCW [id number]) OP-PT Subjective Patient Comments Patient Comments Pt notes that she is doing well today. PT-OP-D Balance Start: 05/23/18 11:25 Freq: Status: Active Protocol: Document 07/23/18 09:45 DCW (Rec: 07/23/18 10:39 DCW [id number]) Balance Tests Peterson Balance Test Peterson Balance Test Score 42/56 Peterson Impairment Rating 20 to 39% Impaired (Score 34- 44) Peterson Balance Assessment Evaluation Sitting to Standing Ability Independent w/Hands Unsupported Stance Safely- 2 minutes Sitting Unsupported, Feet on Floor Safely- 2 minutes Standing to Sitting Ability Assist, Control w/Hands Transfer Ability Safely, Hand Use Unsupported Stance- Eyes Closed Safely, 10 seconds Unsupported Stance- Eyes Open Independent, 1 minute Reaching Forward Standing Safely, 5 inches Pick- Up Object From Floor Independent/Safe Look Behind Shoulder - Standing Shifts Weight Unilateral Turning 360 Degrees Turns slowly, but safely Unsupported Stance, Alternating Feet on 4 Steps w/Supervision Stair Unsupported Tandem Stance Small Step- 30 seconds Unilateral Leg Stance Lifts Leg/Unable to Hold Total Score Peterson Total Score (out of 56 points) 42 Peterson Impairment Rating 20 to 39% Impaired (Score 34- 44) PT-OP-E Functional Tests Start: 05/23/18 11:25 Freq: Status: Active Protocol: Document 07/23/18 09:45 DCW (Rec: 07/23/18 10:39 DCW [id number]) Functional Tests 6 Minute Walk Test Distance 227' in 3:44 Device Used Two walking sticks Comments 1.01 ft/sec Timed Up and Go (TUG) Score 26.16 seconds Comments 3-trial average TUG Impairment Rating 100% Impaired (Score 20) PT-OP-M Strength Start: 05/23/18 11:25 Freq: Status: Active Protocol: Document 07/23/18 09:45 DCW (Rec: 07/23/18 10:39 DCW [id number]) Hip Strength Hip Manual Muscle Testing Right Flexion (L2) 4+ Good+ Abduction 4 Good Adduction 4 Good External Rotation 4 Good Internal Rotation 4+ Good+ Left Flexion (L2) 4 Good Abduction 4 Good Adduction 4 Good External Rotation 4- Good- Internal Rotation 4+ Good+ Knee Strength Knee Manual Muscle Testing Right Flexion (S2) 4 Good Extension (L3) 4- Good- Left Flexion (S2) 4 Good Extension (L3) 4- Good- Ankle/Foot Strength Ankle and Foot Manual Muscle Testing Right Dorsiflexion (L4) 4- Good- Plantarflexion (S1) 4- Good- Left Dorsiflexion (L4) 4- Good- Plantarflexion (S1) 4- Good- PT-OP-Q Treatments Start: 05/23/18 11:25 Freq: Status: Active Protocol: Document 09/05/18 13:45 DCW (Rec: 09/05/18 14:29 DCW [id number]) Cardio Equipment Upper Body Ergometer (UBE) Duration (Minutes) 5 Seat Position 12 Height 2 Other RPM as tolerated Therapeutic Exercises Sitting Exercises Hip Adductor Ball Squeeze Sitting Exercise Name Add Ball Squeeze Side bilateral Resistance Small ball Equipment Used 5 hold Rows Sitting Exercise Name Rows Side bilateral Resistance Lv 2 Equipment Used T-band Hamstring Curls Sitting Exercise Name Hamstring Curls Side bilateral Resistance Lv 2 Equipment Used T-band Reps/Minutes x20 Hip Abduction Sitting Exercise Name Hip Abduction Side bilateral Resistance Lv 2 Equipment Used T-band Reps/Minutes x20 Marching Sitting Exercise Name Seated Marching Side bilateral Resistance 4# Shoulder Horizontal Adduction Sitting Exercise Name Horizontal Adduction Side bilateral Resistance Lv 2 Equipment Used T-band Reps/Minutes x20 Chest Press Sitting Exercise Name Chest press with wand Resistance #2 Other Exercises Resisted Side-stepping Other Exercise Name Resisted Side-stepping Side bilateral Resistance Yellow Equipment Used T-band Gait Training Gait Activity Gait speed training Description 170' x2 Comments 170' time: 115.7 (1.47 ft/sec ); 106.4 (1.60 ft/sec) PT-OP-T Assessment and Plan Start: 05/23/18 11:25 Freq: Status: Active Protocol: Document 09/05/18 13:45 DCW (Rec: 09/05/18 14:29 DCW [id number]) Physical Therapy Assessment Impairments Impairments Activity Tolerance Functional Activities Functional Mobility Gait Posture ROM Strength Goals Four Impairment Peterson Balance Scale Half-Way Goal (LTG) Pt to score at least 47/56 on Peterson Balance Scale LTG Duration 09/20/18 Three Impairment LE MMT Bar Porter Goal (LTG) PT LE MMT grossly 4/5 LTG Duration 09/20/18 Two Impairment Gait speed Half-Way Goal (LTG) Pt gait speed to 1.11 ft/sec ( 6 MWT distance of 400'). LTG Duration 09/20/18 One Impairment Pt does not have an appropriate home exercise program Short Term Goal (STG) Pt to be independent and compliant with an appropriate HEP STG Duration 08/23/18 Assessment Summary Assessment Pt walking faster today, possibly due to the later appointment time, as pt typically complains of feeling tired or fatigued during her morning appointments. Physical Therapy Plan Frequency and Duration Frequency of Treatment 2x/Week Duration of Treatment 12 weeks Plan of Care Start Date 07/23/18 Plan of Care End Date 10/15/18 Therapeutic Interventions Therapeutic Interventions Balance Training Gait Training Home Exercise Program Joint Mobilizations Manual Therapy Neuromuscular Re-education Patient/Caregiver Education Self-Care/Home Management Therapeutic Activities Therapeutic Exercises Modalities Cold Pack/Ice Massage Hot Packs Next Visit Focus/Plan Next Note Type Treatment Note Next Visit Plan Balance training, gait training, improving posture.
--- NOTE | 2018-09-19 15:11 | PT.OTN ---
Current Diagnoses Other abnormalities of gait and mobility (09/19/18) Weakness (09/19/18) Physical Therapy Treatment Note PT-OP-A Visit Information Start: 05/23/18 11:25 Freq: Status: Active Protocol: Document 09/19/18 14:30 DCW (Rec: 09/19/18 15:10 DCW [id number]) Out-Patient Physical Therapy Visit Information Visit Information Visit Type Treatment Note Visit Start Time 14:30 Visit Stop Time 15:15 Total Visit Minutes 45 Visit Number 16 Number of SLIVER CHOPPER Visits 0 Evaluation Information Evaluation Date 05/22/18 PT-OP-B Current Condition Start: 05/23/18 11:25 Freq: Status: Active Protocol: Document 07/23/18 09:45 DCW (Rec: 07/23/18 10:43 DCW [id number]) Current Condition History of Current Condition Onset Date Multi-year history Current Complaints Imbalance, weakness, fatigue, poor posture History of Current Condition Pt is a 78 year old female well known to this clinic presenting with complaints of imbalance and weakness, whcih she has previously been treated for with varying degrees of success. Pt reports she back has been hurting more recently and she feels it is impacting her posture, and admits her gait speed has dramatically declined since her last round of physical therapy. Pt notes an increased fear of falling, and during a recent trip to [facility], used a wheelchair to get around so she did not slow down the rest of her family. 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 Pt discharged with orders to continue prior PT/OT/ST as previously ordered. Treatment Goals Patient/Caregiver Goals Increase gait speed, improve posture, strengthen legs Prior Functional Status Baseline Function- ADL's Modified Independent Baseline Function- Mobility Modified Independent Current Functional Impairments (Reported) Functional Limitations- Mobility/Gait Very slow gait art, fear of falling, difficulty walking anywhere due to increased time taken to get around. PT-OP-C Subjective Start: 05/23/18 11:25 Freq: Status: Active Protocol: Document 09/19/18 14:30 DCW (Rec: 09/19/18 15:10 DCW [id number]) OP-PT Subjective Patient Comments Patient Comments Pt reports that she is not feeling that well today. PT-OP-D Balance Start: 05/23/18 11:25 Freq: Status: Active Protocol: Document 07/23/18 09:45 DCW (Rec: 07/23/18 10:39 DCW [id number]) Balance Tests Peterson Balance Test Peterson Balance Test Score 42/56 Peterson Impairment Rating 20 to 39% Impaired (Score 34- 44) Peterson Balance Assessment Evaluation Sitting to Standing Ability Independent w/Hands Unsupported Stance Safely- 2 minutes Sitting Unsupported, Feet on Floor Safely- 2 minutes Standing to Sitting Ability Assist, Control w/Hands Transfer Ability Safely, Hand Use Unsupported Stance- Eyes Closed Safely, 10 seconds Unsupported Stance- Eyes Open Independent, 1 minute Reaching Forward Standing Safely, 5 inches Pick- Up Object From Floor Independent/Safe Look Behind Shoulder - Standing Shifts Weight Unilateral Turning 360 Degrees Turns slowly, but safely Unsupported Stance, Alternating Feet on 4 Steps w/Supervision Stair Unsupported Tandem Stance Small Step- 30 seconds Unilateral Leg Stance Lifts Leg/Unable to Hold Total Score Peterson Total Score (out of 56 points) 42 Peterson Impairment Rating 20 to 39% Impaired (Score 34- 44) PT-OP-E Functional Tests Start: 05/23/18 11:25 Freq: Status: Active Protocol: Document 07/23/18 09:45 DCW (Rec: 07/23/18 10:39 DCW [id number]) Functional Tests 6 Minute Walk Test Distance 227' in 3:44 Device Used Two walking sticks Comments 1.01 ft/sec Timed Up and Go (TUG) Score 26.16 seconds Comments 3-trial average TUG Impairment Rating 100% Impaired (Score 20) PT-OP-M Strength Start: 05/23/18 11:25 Freq: Status: Active Protocol: Document 07/23/18 09:45 DCW (Rec: 07/23/18 10:39 DCW [id number]) Hip Strength Hip Manual Muscle Testing Right Flexion (L2) 4+ Good+ Abduction 4 Good Adduction 4 Good External Rotation 4 Good Internal Rotation 4+ Good+ Left Flexion (L2) 4 Good Abduction 4 Good Adduction 4 Good External Rotation 4- Good- Internal Rotation 4+ Good+ Knee Strength Knee Manual Muscle Testing Right Flexion (S2) 4 Good Extension (L3) 4- Good- Left Flexion (S2) 4 Good Extension (L3) 4- Good- Ankle/Foot Strength Ankle and Foot Manual Muscle Testing Right Dorsiflexion (L4) 4- Good- Plantarflexion (S1) 4- Good- Left Dorsiflexion (L4) 4- Good- Plantarflexion (S1) 4- Good- PT-OP-Q Treatments Start: 05/23/18 11:25 Freq: Status: Active Protocol: Document 09/19/18 14:30 DCW (Rec: 09/19/18 15:10 DCW [id number]) Cardio Equipment Recumbent Elliptical (Biodex) Duration (Minutes) 6 Resistance 3 Seat Position 9 Therapeutic Exercises Sitting Exercises Shoulder Extension Sitting Exercise Name Extension Side bilateral Resistance Lv 2 Equipment Used T-band Pulleys - Flexion/Abduction Sitting Exercise Name Pulleys - Flexion/Abduction Side bilateral Rows Sitting Exercise Name Rows Side bilateral Resistance Lv 2 Equipment Used T-band Hamstring Curls Sitting Exercise Name Hamstring Curls Side bilateral Resistance Lv 2 Equipment Used T-band Reps/Minutes x20 Hip Abduction Sitting Exercise Name Hip Abduction Side bilateral Resistance Lv 2 Equipment Used T-band Reps/Minutes x20 Shoulder Horizontal Adduction Sitting Exercise Name Horizontal Adduction Side bilateral Resistance Lv 2 Equipment Used T-band Reps/Minutes x20 Chest Press Sitting Exercise Name Chest press with wand Resistance #4 Shoulder Retraction Sitting Exercise Name Shoulder retraction Other Exercises Heel-toe Ambulation Other Exercise Name Heel-toe ambulation Equipment Used // bars Resisted Side-stepping Other Exercise Name Resisted Side-stepping Side bilateral Resistance Yellow Equipment Used T-band Neuro Re-Education Treatment Balance Activities Semi-tandem Stance Details Semi-tandem Surface Blue Foam PT-OP-T Assessment and Plan Start: 05/23/18 11:25 Freq: Status: Active Protocol: Document 09/19/18 14:30 DCW (Rec: 09/19/18 15:10 DCW [id number]) Physical Therapy Assessment Impairments Impairments Activity Tolerance Functional Activities Functional Mobility Gait Posture ROM Strength Goals Four Impairment Peterson Balance Scale Chcf Goal (LTG) Pt to score at least 47/56 on Peterson Balance Scale LTG Duration 09/20/18 Three Impairment LE MMT Interpretative Dancer Goal (LTG) PT LE MMT grossly 4/5 LTG Duration 09/20/18 Two Impairment Gait speed Chcf Goal (LTG) Pt gait speed to 1.11 ft/sec ( 6 MWT distance of 400'). LTG Duration 09/20/18 One Impairment Pt does not have an appropriate home exercise program Short Term Goal (STG) Pt to be independent and compliant with an appropriate HEP STG Duration 08/23/18 Assessment Summary Assessment Pt noticeably more off balance today, decided to skip her lap walking due to her losing her balance x2 just walking back from the waiting room. Physical Therapy Plan Frequency and Duration Frequency of Treatment 2x/Week Duration of Treatment 12 weeks Plan of Care Start Date 07/23/18 Plan of Care End Date 10/15/18 Therapeutic Interventions Therapeutic Interventions Balance Training Gait Training Home Exercise Program Joint Mobilizations Manual Therapy Neuromuscular Re-education Patient/Caregiver Education Self-Care/Home Management Therapeutic Activities Therapeutic Exercises Modalities Cold Pack/Ice Massage Hot Packs Next Visit Focus/Plan Next Note Type Treatment Note Next Visit Plan Balance training, gait training, improving posture.
--- NOTE | 2018-09-21 15:20 | PT.OTN ---
Current Diagnoses Other abnormalities of gait and mobility (09/21/18) Weakness (09/21/18) Physical Therapy Treatment Note PT-OP-A Visit Information Start: 05/23/18 11:25 Freq: Status: Active Protocol: Document 09/21/18 15:20 RCC (Rec: 09/21/18 16:29 RCC [email or web address]) Out-Patient Physical Therapy Visit Information Visit Information Visit Type Treatment Note Visit Start Time 15:20 Visit Stop Time 16:03 Total Visit Minutes 43 Visit Number 17 Number of BOX MAKER WOOD Visits 0 Evaluation Information Evaluation Date 05/22/18 PT-OP-B Current Condition Start: 05/23/18 11:25 Freq: Status: Active Protocol: Document 07/23/18 09:45 DCW (Rec: 07/23/18 10:43 DCW [id number]) Current Condition History of Current Condition Onset Date Multi-year history Current Complaints Imbalance, weakness, fatigue, poor posture History of Current Condition Pt is a 78 year old female well known to this clinic presenting with complaints of imbalance and weakness, whcih she has previously been treated for with varying degrees of success. Pt reports she back has been hurting more recently and she feels it is impacting her posture, and admits her gait speed has dramatically declined since her last round of physical therapy. Pt notes an increased fear of falling, and during a recent trip to [facility], used a wheelchair to get around so she did not slow down the rest of her family. 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 Pt discharged with orders to continue prior PT/OT/ST as previously ordered. Treatment Goals Patient/Caregiver Goals Increase gait speed, improve posture, strengthen legs Prior Functional Status Baseline Function- ADL's Modified Independent Baseline Function- Mobility Modified Independent Current Functional Impairments (Reported) Functional Limitations- Mobility/Gait Very slow gait art, fear of falling, difficulty walking anywhere due to increased time taken to get around. PT-OP-C Subjective Start: 05/23/18 11:25 Freq: Status: Active Protocol: Document 09/21/18 15:20 RCC (Rec: 09/21/18 16:29 RCC [email or web address]) OP-PT Subjective Patient Comments Patient Comments Pt notes that she is doing better today than Monday. She admits that she sat in a cushy chair at home and was unable to get up and out of it for 45 min until her came home. PT-OP-D Balance Start: 05/23/18 11:25 Freq: Status: Active Protocol: Document 07/23/18 09:45 DCW (Rec: 07/23/18 10:39 DCW [id number]) Balance Tests Peterson Balance Test Peterson Balance Test Score 42/56 Peterson Impairment Rating 20 to 39% Impaired (Score 34- 44) Peterson Balance Assessment Evaluation Sitting to Standing Ability Independent w/Hands Unsupported Stance Safely- 2 minutes Sitting Unsupported, Feet on Floor Safely- 2 minutes Standing to Sitting Ability Assist, Control w/Hands Transfer Ability Safely, Hand Use Unsupported Stance- Eyes Closed Safely, 10 seconds Unsupported Stance- Eyes Open Independent, 1 minute Reaching Forward Standing Safely, 5 inches Pick- Up Object From Floor Independent/Safe Look Behind Shoulder - Standing Shifts Weight Unilateral Turning 360 Degrees Turns slowly, but safely Unsupported Stance, Alternating Feet on 4 Steps w/Supervision Stair Unsupported Tandem Stance Small Step- 30 seconds Unilateral Leg Stance Lifts Leg/Unable to Hold Total Score Peterson Total Score (out of 56 points) 42 Peterson Impairment Rating 20 to 39% Impaired (Score 34- 44) PT-OP-E Functional Tests Start: 05/23/18 11:25 Freq: Status: Active Protocol: Document 07/23/18 09:45 DCW (Rec: 07/23/18 10:39 DCW [id number]) Functional Tests 6 Minute Walk Test Distance 227' in 3:44 Device Used Two walking sticks Comments 1.01 ft/sec Timed Up and Go (TUG) Score 26.16 seconds Comments 3-trial average TUG Impairment Rating 100% Impaired (Score 20) PT-OP-M Strength Start: 05/23/18 11:25 Freq: Status: Active Protocol: Document 07/23/18 09:45 DCW (Rec: 07/23/18 10:39 DCW [id number]) Hip Strength Hip Manual Muscle Testing Right Flexion (L2) 4+ Good+ Abduction 4 Good Adduction 4 Good External Rotation 4 Good Internal Rotation 4+ Good+ Left Flexion (L2) 4 Good Abduction 4 Good Adduction 4 Good External Rotation 4- Good- Internal Rotation 4+ Good+ Knee Strength Knee Manual Muscle Testing Right Flexion (S2) 4 Good Extension (L3) 4- Good- Left Flexion (S2) 4 Good Extension (L3) 4- Good- Ankle/Foot Strength Ankle and Foot Manual Muscle Testing Right Dorsiflexion (L4) 4- Good- Plantarflexion (S1) 4- Good- Left Dorsiflexion (L4) 4- Good- Plantarflexion (S1) 4- Good- PT-OP-Q Treatments Start: 05/23/18 11:25 Freq: Status: Active Protocol: Document 09/21/18 15:20 RCC (Rec: 09/21/18 16:29 RCC [email or web address]) Cardio Equipment Recumbent Elliptical (Channelkit) Duration (Minutes) 6 Resistance 3 Seat Position 9 Therapeutic Exercises Sitting Exercises Rows Sitting Exercise Name Rows Side bilateral Resistance Lv 2 Equipment Used T-band Hamstring Curls Sitting Exercise Name Hamstring Curls Side bilateral Resistance Lv 2 Equipment Used T-band Reps/Minutes x20 Hip Abduction Sitting Exercise Name Hip Abduction Side bilateral Resistance Lv 2 Equipment Used T-band Reps/Minutes x20 Shoulder Horizontal Adduction Sitting Exercise Name Horizontal Adduction Side bilateral Resistance Lv 2 Equipment Used T-band Reps/Minutes x20 Chest Press Sitting Exercise Name Chest press with wand Resistance #4 Reps/Minutes x15 Horizontal shoulder Abduction Sitting Exercise Name Horizontal Abduction Side bilateral Resistance Lv 2 Equipment Used T-band Reps/Minutes x20 Other Exercises sit<->stand Other Exercise Name STS training with UE assist on chair Side bilateral Reps/Minutes 8 Comments occasional need for rail in front of pt d/t unable to complete full stand Resisted Side-stepping Other Exercise Name Resisted Side-stepping Side bilateral Resistance Yellow Equipment Used T-band Gait Training Gait Activity Gait speed training Description 170' x2 Comments 170' time: 135 (1.25 ft/sec); 104.3 (1.63 ft/sec) PT-OP-T Assessment and Plan Start: 05/23/18 11:25 Freq: Status: Active Protocol: Document 09/21/18 15:20 RCC (Rec: 09/21/18 16:29 [facility] [email or web address]) Physical Therapy Assessment Assessment Summary Assessment Pt able to tolerate lap walking today, with second trial at a rate of 1.63 ft/sec . Pt with increased step length with lap ambulation compared to initial ambulation in hallway prior to session. Pt's L lateral step is greater than R with resisted walking. Physical Therapy Plan Frequency and Duration Frequency of Treatment 2x/Week Duration of Treatment 12 weeks Plan of Care Start Date 07/23/18 Plan of Care End Date 10/15/18 Next Visit Focus/Plan Next Note Type Treatment Note Next Visit Plan gait training- speed and step length, standing/sitting posture
--- NOTE | 2018-09-25 11:12 | PT.OTN ---
Current Diagnoses Other abnormalities of gait and mobility (09/25/18) Weakness (09/25/18) Physical Therapy Treatment Note PT-OP-A Visit Information Start: 05/23/18 11:25 Freq: Status: Active Protocol: Document 09/25/18 10:30 DCW (Rec: 09/25/18 11:12 DCW [id number]) Out-Patient Physical Therapy Visit Information Visit Information Visit Type Progress Note Visit Note 10th visit prog note Visit Start Time 10:30 Visit Stop Time 11:15 Total Visit Minutes 45 Visit Number 18 Number of TEENAGE BABYSITTER Visits 0 Evaluation Information Evaluation Date 05/22/18 PT-OP-B Current Condition Start: 05/23/18 11:25 Freq: Status: Active Protocol: Document 07/23/18 09:45 DCW (Rec: 07/23/18 10:43 DCW [id number]) Current Condition History of Current Condition Onset Date Multi-year history Current Complaints Imbalance, weakness, fatigue, poor posture History of Current Condition Pt is a 78 year old female well known to this clinic presenting with complaints of imbalance and weakness, whcih she has previously been treated for with varying degrees of success. Pt reports she back has been hurting more recently and she feels it is impacting her posture, and admits her gait speed has dramatically declined since her last round of physical therapy. Pt notes an increased fear of falling, and during a recent trip to [facility], used a wheelchair to get around so she did not slow down the rest of her family. 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 Pt discharged with orders to continue prior PT/OT/ST as previously ordered. Treatment Goals Patient/Caregiver Goals Increase gait speed, improve posture, strengthen legs Prior Functional Status Baseline Function- ADL's Modified Independent Baseline Function- Mobility Modified Independent Current Functional Impairments (Reported) Functional Limitations- Mobility/Gait Very slow gait art, fear of falling, difficulty walking anywhere due to increased time taken to get around. PT-OP-C Subjective Start: 05/23/18 11:25 Freq: Status: Active Protocol: Document 09/25/18 10:30 DCW (Rec: 09/25/18 11:12 DCW [id number]) OP-PT Subjective Patient Comments Patient Comments I feel good today. PT-OP-D Balance Start: 05/23/18 11:25 Freq: Status: Active Protocol: Document 07/23/18 09:45 DCW (Rec: 07/23/18 10:39 DCW [id number]) Balance Tests Peterson Balance Test Peterson Balance Test Score 42/56 Peterson Impairment Rating 20 to 39% Impaired (Score 34- 44) Peterson Balance Assessment Evaluation Sitting to Standing Ability Independent w/Hands Unsupported Stance Safely- 2 minutes Sitting Unsupported, Feet on Floor Safely- 2 minutes Standing to Sitting Ability Assist, Control w/Hands Transfer Ability Safely, Hand Use Unsupported Stance- Eyes Closed Safely, 10 seconds Unsupported Stance- Eyes Open Independent, 1 minute Reaching Forward Standing Safely, 5 inches Pick- Up Object From Floor Independent/Safe Look Behind Shoulder - Standing Shifts Weight Unilateral Turning 360 Degrees Turns slowly, but safely Unsupported Stance, Alternating Feet on 4 Steps w/Supervision Stair Unsupported Tandem Stance Small Step- 30 seconds Unilateral Leg Stance Lifts Leg/Unable to Hold Total Score Peterson Total Score (out of 56 points) 42 Peterson Impairment Rating 20 to 39% Impaired (Score 34- 44) PT-OP-E Functional Tests Start: 05/23/18 11:25 Freq: Status: Active Protocol: Document 07/23/18 09:45 DCW (Rec: 07/23/18 10:39 DCW [id number]) Functional Tests 6 Minute Walk Test Distance 227' in 3:44 Device Used Two walking sticks Comments 1.01 ft/sec Timed Up and Go (TUG) Score 26.16 seconds Comments 3-trial average TUG Impairment Rating 100% Impaired (Score 20) PT-OP-M Strength Start: 05/23/18 11:25 Freq: Status: Active Protocol: Document 07/23/18 09:45 DCW (Rec: 07/23/18 10:39 DCW [id number]) Hip Strength Hip Manual Muscle Testing Right Flexion (L2) 4+ Good+ Abduction 4 Good Adduction 4 Good External Rotation 4 Good Internal Rotation 4+ Good+ Left Flexion (L2) 4 Good Abduction 4 Good Adduction 4 Good External Rotation 4- Good- Internal Rotation 4+ Good+ Knee Strength Knee Manual Muscle Testing Right Flexion (S2) 4 Good Extension (L3) 4- Good- Left Flexion (S2) 4 Good Extension (L3) 4- Good- Ankle/Foot Strength Ankle and Foot Manual Muscle Testing Right Dorsiflexion (L4) 4- Good- Plantarflexion (S1) 4- Good- Left Dorsiflexion (L4) 4- Good- Plantarflexion (S1) 4- Good- PT-OP-Q Treatments Start: 05/23/18 11:25 Freq: Status: Active Protocol: Document 09/25/18 10:30 DCW (Rec: 09/25/18 11:12 DCW [id number]) Therapeutic Exercises Sitting Exercises Biceps Curls Sitting Exercise Name Curls Side bilateral Resistance 2# Shoulder Extension Sitting Exercise Name Extension Side bilateral Resistance Lv 2 Equipment Used T-band Hip Adductor Ball Squeeze Sitting Exercise Name Add Ball Squeeze Side bilateral Resistance Small ball Equipment Used 5 hold Rows Sitting Exercise Name Rows Side bilateral Resistance Lv 2 Equipment Used T-band Hamstring Curls Sitting Exercise Name Hamstring Curls Side bilateral Resistance Lv 2 Equipment Used T-band Reps/Minutes x20 Hip Abduction Sitting Exercise Name Hip Abduction Side bilateral Resistance Lv 2 Equipment Used T-band Reps/Minutes x20 Shoulder Horizontal Adduction Sitting Exercise Name Horizontal Adduction Side bilateral Resistance Lv 2 Equipment Used T-band Reps/Minutes x20 Chest Press Sitting Exercise Name Chest press with wand Resistance #4 Reps/Minutes x15 Shoulder Retraction Sitting Exercise Name Shoulder retraction Reps/Minutes x15 Other Exercises Resisted Side-stepping Other Exercise Name Resisted Side-stepping Side bilateral Resistance Yellow Equipment Used T-band Gait Training Gait Activity Gait speed training Description 170' x2 Comments 170' time: 113.1 (1.50.3 ft/ sec); 109.9 (1.55 ft/sec) PT-OP-T Assessment and Plan Start: 05/23/18 11:25 Freq: Status: Active Protocol: Document 09/25/18 10:30 DCW (Rec: 09/25/18 11:12 DCW [id number]) Physical Therapy Assessment Impairments Impairments Activity Tolerance Functional Activities Functional Mobility Gait Posture ROM Strength Goals Four Impairment Peterson Balance Scale Assisted Goal (LTG) Pt to score at least 47/56 on Peterson Balance Scale LTG Duration 09/20/18 Three Impairment LE MMT Supervisor Cigar Making Machine Goal (LTG) PT LE MMT grossly 4/5 LTG Duration 09/20/18 Two Impairment Gait speed Assisted Goal (LTG) Pt gait speed to 1.11 ft/sec ( 6 MWT distance of 400'). LTG Duration 09/20/18 One Impairment Pt does not have an appropriate home exercise program Short Term Goal (STG) Pt to be independent and compliant with an appropriate HEP STG Duration 08/23/18 Assessment Summary Assessment Pt fatigued quickly after walking, required the remainder of the session to focus on seated TherEx. Physical Therapy Plan Frequency and Duration Frequency of Treatment 2x/Week Duration of Treatment 12 weeks Plan of Care Start Date 07/23/18 Plan of Care End Date 10/15/18 Therapeutic Interventions Therapeutic Interventions Balance Training Gait Training Home Exercise Program Joint Mobilizations Manual Therapy Neuromuscular Re-education Patient/Caregiver Education Self-Care/Home Management Therapeutic Activities Therapeutic Exercises Modalities Cold Pack/Ice Massage Hot Packs Next Visit Focus/Plan Next Note Type Treatment Note Next Visit Plan Balance training, gait training, improving posture.
--- NOTE | 2018-09-28 12:00 | PT.OTN ---
Current Diagnoses Other abnormalities of gait and mobility (09/28/18) Weakness (09/28/18) Physical Therapy Treatment Note PT-OP-A Visit Information Start: 05/23/18 11:25 Freq: Status: Active Protocol: Document 09/28/18 11:20 DCW (Rec: 09/28/18 12:00 DCW [id number]) Out-Patient Physical Therapy Visit Information Visit Information Visit Type Treatment Note Visit Note 2019 visit #12 Visit Start Time 11:20 Visit Stop Time 12:00 Total Visit Minutes 40 Visit Number 2/ Number of STAFF GENETIC COUNSELOR Visits 0 Evaluation Information Evaluation Date 05/22/18 PT-OP-B Current Condition Start: 05/23/18 11:25 Freq: Status: Active Protocol: Document 07/23/18 09:45 DCW (Rec: 07/23/18 10:43 DCW [id number]) Current Condition History of Current Condition Onset Date Multi-year history Current Complaints Imbalance, weakness, fatigue, poor posture History of Current Condition Pt is a 78 year old female well known to this clinic presenting with complaints of imbalance and weakness, whcih she has previously been treated for with varying degrees of success. Pt reports she back has been hurting more recently and she feels it is impacting her posture, and admits her gait speed has dramatically declined since her last round of physical therapy. Pt notes an increased fear of falling, and during a recent trip to [facility], used a wheelchair to get around so she did not slow down the rest of her family. 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 Pt discharged with orders to continue prior PT/OT/ST as previously ordered. Treatment Goals Patient/Caregiver Goals Increase gait speed, improve posture, strengthen legs Prior Functional Status Baseline Function- ADL's Modified Independent Baseline Function- Mobility Modified Independent Current Functional Impairments (Reported) Functional Limitations- Mobility/Gait Very slow gait art, fear of falling, difficulty walking anywhere due to increased time taken to get around. PT-OP-C Subjective Start: 05/23/18 11:25 Freq: Status: Active Protocol: Document 09/28/18 11:20 DCW (Rec: 09/28/18 12:00 DCW [id number]) OP-PT Subjective Patient Comments Patient Comments Pt reports she is doing well today. but feels like she needs to rest immediately upon getting into the clinic before doing any activity. PT-OP-D Balance Start: 05/23/18 11:25 Freq: Status: Active Protocol: Document 07/23/18 09:45 DCW (Rec: 07/23/18 10:39 DCW [id number]) Balance Tests Peterson Balance Test Peterson Balance Test Score 42/56 Peterson Impairment Rating 20 to 39% Impaired (Score 34- 44) Peterson Balance Assessment Evaluation Sitting to Standing Ability Independent w/Hands Unsupported Stance Safely- 2 minutes Sitting Unsupported, Feet on Floor Safely- 2 minutes Standing to Sitting Ability Assist, Control w/Hands Transfer Ability Safely, Hand Use Unsupported Stance- Eyes Closed Safely, 10 seconds Unsupported Stance- Eyes Open Independent, 1 minute Reaching Forward Standing Safely, 5 inches Pick- Up Object From Floor Independent/Safe Look Behind Shoulder - Standing Shifts Weight Unilateral Turning 360 Degrees Turns slowly, but safely Unsupported Stance, Alternating Feet on 4 Steps w/Supervision Stair Unsupported Tandem Stance Small Step- 30 seconds Unilateral Leg Stance Lifts Leg/Unable to Hold Total Score Peterson Total Score (out of 56 points) 42 Peterson Impairment Rating 20 to 39% Impaired (Score 34- 44) PT-OP-E Functional Tests Start: 05/23/18 11:25 Freq: Status: Active Protocol: Document 07/23/18 09:45 DCW (Rec: 07/23/18 10:39 DCW [id number]) Functional Tests 6 Minute Walk Test Distance 227' in 3:44 Device Used Two walking sticks Comments 1.01 ft/sec Timed Up and Go (TUG) Score 26.16 seconds Comments 3-trial average TUG Impairment Rating 100% Impaired (Score 20) PT-OP-M Strength Start: 05/23/18 11:25 Freq: Status: Active Protocol: Document 07/23/18 09:45 DCW (Rec: 07/23/18 10:39 DCW [id number]) Hip Strength Hip Manual Muscle Testing Right Flexion (L2) 4+ Good+ Abduction 4 Good Adduction 4 Good External Rotation 4 Good Internal Rotation 4+ Good+ Left Flexion (L2) 4 Good Abduction 4 Good Adduction 4 Good External Rotation 4- Good- Internal Rotation 4+ Good+ Knee Strength Knee Manual Muscle Testing Right Flexion (S2) 4 Good Extension (L3) 4- Good- Left Flexion (S2) 4 Good Extension (L3) 4- Good- Ankle/Foot Strength Ankle and Foot Manual Muscle Testing Right Dorsiflexion (L4) 4- Good- Plantarflexion (S1) 4- Good- Left Dorsiflexion (L4) 4- Good- Plantarflexion (S1) 4- Good- PT-OP-Q Treatments Start: 05/23/18 11:25 Freq: Status: Active Protocol: Document 09/28/18 11:20 DCW (Rec: 09/28/18 12:00 DCW [id number]) Cardio Equipment Upper Body Ergometer (UBE) Duration (Minutes) 5 Seat Position 12 Height 2 Other RPM as tolerated Therapeutic Exercises Sitting Exercises Biceps Curls Sitting Exercise Name Curls Side bilateral Resistance 2# Rows Sitting Exercise Name Rows Side bilateral Resistance Lv 2 Equipment Used T-band Chest Press Sitting Exercise Name Chest press with wand Resistance #4 Reps/Minutes x15 Shoulder Retraction Sitting Exercise Name Shoulder retraction Reps/Minutes x15 Other Exercises Resisted Side-stepping Other Exercise Name Resisted Side-stepping Side bilateral Resistance Yellow Equipment Used T-band Gait Training Gait Activity Gait speed training Description 170' x2 Comments 170' time: 105.1 (1.62 ft/sec ); 106.4 (1.60 ft/sec) PT-OP-T Assessment and Plan Start: 05/23/18 11:25 Freq: Status: Active Protocol: Document 09/28/18 11:20 DCW (Rec: 09/28/18 12:00 DCW [id number]) Physical Therapy Assessment Impairments Impairments Activity Tolerance Functional Activities Functional Mobility Gait Posture ROM Strength Goals Four Impairment Peterson Balance Scale Senior Care Goal (LTG) Pt to score at least 47/56 on Peterson Balance Scale LTG Duration 09/20/18 Three Impairment LE MMT Visual Education Teacher Goal (LTG) PT LE MMT grossly 4/5 LTG Duration 09/20/18 Two Impairment Gait speed Visual Education Teacher Goal (LTG) Pt gait speed to 1.11 ft/sec ( 6 MWT distance of 400'). LTG Duration 09/20/18 One Impairment Pt does not have an appropriate home exercise program Short Term Goal (STG) Pt to be independent and compliant with an appropriate HEP STG Duration 08/23/18 Assessment Summary Assessment Pt largely seems to have plateaued, has not changed her strength or gait speed for quite some time. Pt should be reassessed in the upcoming week to determine if further therapy would benefit her, or if she has reached he progress plateau Physical Therapy Plan Frequency and Duration Frequency of Treatment 2x/Week Duration of Treatment 12 weeks Plan of Care Start Date 07/23/18 Plan of Care End Date 10/15/18 Therapeutic Interventions Therapeutic Interventions Balance Training Gait Training Home Exercise Program Joint Mobilizations Manual Therapy Neuromuscular Re-education Patient/Caregiver Education Self-Care/Home Management Therapeutic Activities Therapeutic Exercises Modalities Cold Pack/Ice Massage Hot Packs Next Visit Focus/Plan Next Note Type Treatment Note Next Visit Plan Balance training, gait training, improving posture.
--- NOTE | 2018-10-01 14:05 | PT.OTN ---
Current Diagnoses Other abnormalities of gait and mobility (10/01/18) Weakness (10/01/18) Physical Therapy Treatment Note PT-OP-A Visit Information Start: 05/23/18 11:25 Freq: Status: Active Protocol: Document 10/01/18 10:30 DCW (Rec: 10/01/18 14:05 DCW [id number]) Out-Patient Physical Therapy Visit Information Visit Information Visit Type Discharge Summary Visit Note 2019 visit #13 Visit Start Time 10:30 Visit Stop Time 11:10 Total Visit Minutes 40 Visit Number 3/ Number of SUPERVISOR [employer] Visits 0 Evaluation Information Evaluation Date 05/22/18 PT-OP-B Current Condition Start: 05/23/18 11:25 Freq: Status: Active Protocol: Document 07/23/18 09:45 DCW (Rec: 07/23/18 10:43 DCW [id number]) Current Condition History of Current Condition Onset Date Multi-year history Current Complaints Imbalance, weakness, fatigue, poor posture History of Current Condition Pt is a 78 year old female well known to this clinic presenting with complaints of imbalance and weakness, whcih she has previously been treated for with varying degrees of success. Pt reports she back has been hurting more recently and she feels it is impacting her posture, and admits her gait speed has dramatically declined since her last round of physical therapy. Pt notes an increased fear of falling, and during a recent trip to [facility], used a wheelchair to get around so she did not slow down the rest of her family. 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 Pt discharged with orders to continue prior PT/OT/ST as previously ordered. Treatment Goals Patient/Caregiver Goals Increase gait speed, improve posture, strengthen legs Prior Functional Status Baseline Function- ADL's Modified Independent Baseline Function- Mobility Modified Independent Current Functional Impairments (Reported) Functional Limitations- Mobility/Gait Very slow gait art, fear of falling, difficulty walking anywhere due to increased time taken to get around. PT-OP-C Subjective Start: 05/23/18 11:25 Freq: Status: Active Protocol: Document 10/01/18 10:30 DCW (Rec: 10/01/18 14:05 DCW [id number]) OP-PT Subjective Patient Comments Patient Comments Pt reports she feels good today. PT-OP-D Balance Start: 05/23/18 11:25 Freq: Status: Active Protocol: Document 10/01/18 10:30 DCW (Rec: 10/01/18 11:11 DCW [id number]) Balance Tests Peterson Balance Test Peterson Balance Test Score 42/56 Peterson Impairment Rating 20 to 39% Impaired (Score 34- 44) Peterson Balance Assessment Evaluation Sitting to Standing Ability Independent w/Hands Unsupported Stance Safely- 2 minutes Sitting Unsupported, Feet on Floor Safely- 2 minutes Standing to Sitting Ability Assist, Control w/Hands Transfer Ability Safely, Hand Use Unsupported Stance- Eyes Closed Safely, 10 seconds Unsupported Stance- Eyes Open Independent, 1 minute Reaching Forward Standing Safely, 5 inches Pick- Up Object From Floor Independent/Safe Look Behind Shoulder - Standing Shifts Weight Unilateral Turning 360 Degrees Turns slowly, but safely Unsupported Stance, Alternating Feet on 4 Steps w/Supervision Stair Unsupported Tandem Stance Small Step- 30 seconds Unilateral Leg Stance Lifts Leg/Unable to Hold Total Score Peterson Total Score (out of 56 points) 42 Peterson Impairment Rating 20 to 39% Impaired (Score 34- 44) PT-OP-E Functional Tests Start: 05/23/18 11:25 Freq: Status: Active Protocol: Document 10/01/18 10:30 DCW (Rec: 10/01/18 11:11 DCW [id number]) Functional Tests 6 Minute Walk Test Distance 393' Device Used Two walking sticks Comments 1.1 Timed Up and Go (TUG) Score 24.63 seconds Comments 3-trial average TUG Impairment Rating 100% Impaired (Score 20) PT-OP-M Strength Start: 05/23/18 11:25 Freq: Status: Active Protocol: Document 07/23/18 09:45 DCW (Rec: 07/23/18 10:39 DCW [id number]) Hip Strength Hip Manual Muscle Testing Right Flexion (L2) 4+ Good+ Abduction 4 Good Adduction 4 Good External Rotation 4 Good Internal Rotation 4+ Good+ Left Flexion (L2) 4 Good Abduction 4 Good Adduction 4 Good External Rotation 4- Good- Internal Rotation 4+ Good+ Knee Strength Knee Manual Muscle Testing Right Flexion (S2) 4 Good Extension (L3) 4- Good- Left Flexion (S2) 4 Good Extension (L3) 4- Good- Ankle/Foot Strength Ankle and Foot Manual Muscle Testing Right Dorsiflexion (L4) 4- Good- Plantarflexion (S1) 4- Good- Left Dorsiflexion (L4) 4- Good- Plantarflexion (S1) 4- Good- PT-OP-Q Treatments Start: 05/23/18 11:25 Freq: Status: Active Protocol: Document 10/01/18 10:30 DCW (Rec: 10/01/18 14:05 DCW [id number]) Gait Training Gait Activity 6 MWT, TUG testing Description Reassessment testing Comments TUG, 6 MWT, Peterson Balance PT-OP-T Assessment and Plan Start: 05/23/18 11:25 Freq: Status: Active Protocol: Document 10/01/18 10:30 DCW (Rec: 10/01/18 14:05 DCW [id number]) Physical Therapy Assessment Impairments Impairments Activity Tolerance Functional Activities Functional Mobility Gait Posture ROM Strength Goals Four Impairment Peterson Balance Scale Electric Needle Specialist Goal (LTG) Pt to score at least 47/56 on Peterson Balance Scale LTG Duration 09/20/18 Three Impairment LE MMT Electric Needle Specialist Goal (LTG) PT LE MMT grossly 4/5 LTG Duration 09/20/18 Two Impairment Gait speed Retirement Goal (LTG) Pt gait speed to 1.11 ft/sec ( 6 MWT distance of 400'). ( Improvin' on 10/01/18) LTG Duration 09/20/18 One Impairment Pt does not have an appropriate home exercise program Short Term Goal (STG) Pt to be independent and compliant with an appropriate HEP STG Duration 08/23/18 Progress Towards Goals Progress Towards Goals Slow Progress due to Activity Tolerance Assessment Summary Assessment Testing today showed that pt has plateaued. Pt TUG score was ~1.5 seconds improved, however still above 20 seconds . Peterson Balance score was exactly the same as her last reassessment. Pt was finally able to finish her 6 MWT, slight improvement in speed, but unable to meet her goal. Therapist and patient discussed lack of improvement, and although pt is disappointed, understand that there is no justification for continued treatment. Pt notes she will continue to work hard at home, and will return with a new referral if there are any changes in her status. Pt will be discharged from skilled PT at this time. Physical Therapy Plan Frequency and Duration Frequency of Treatment 2x/Week Duration of Treatment 12 weeks Plan of Care Start Date 07/23/18 Plan of Care End Date 10/15/18 Therapeutic Interventions Therapeutic Interventions Balance Training Gait Training Home Exercise Program Joint Mobilizations Manual Therapy Neuromuscular Re-education Patient/Caregiver Education Self-Care/Home Management Therapeutic Activities Therapeutic Exercises Modalities Cold Pack/Ice Massage Hot Packs Discharge Physical Therapy Discharge Reasons Plateau in Progress Next Visit Focus/Plan Next Note Type Discharge Summary
== END 2018-10-01 12:43 ==
LOC: PHYS 10:30
PROVIDERS: Family Provider Physician Assistant; PCP Physician Assistant; Visit Provider Physician Assistant
DX: R53.1 Weakness (principal); R26.89 Other abnormalities of gait and mobility
CPT/HCPCS: 97110; 97112; 97116; 97140; 97161; 97530

== ENCOUNTER 2019-04-24 12:30 | Outpatient (RCR) | payer MEDICARE, OTHER, SELFPAY ==
[2018-07-13 13:53] VITALS: BMI 25.7
--- NOTE | 2019-03-05 16:18 | ST.OPIE ---
Provider Information Visit Care Team Role Provider Type Conchita Felipe PA-C Attending Provider Advanced Conveyor Belt Repairer Primary Care Provider Specialty: Internal Medicine Address: [address] [place] [address], [id number] Email: [email or web address] Speech-Language Pathology Initial Evaluation ENROLLMENT MANAGEMENT VICE PRESIDENT Clinical Swallow Evaluation Start: 03/05/19 11:07 Freq: Status: Active Protocol: Document 03/05/19 12:21 BRENDEN (Rec: 03/05/19 12:29 BRENDEN [email or web address]) Clinical Swallow Evaluation Session Time Visit Start Time 09:30 Visit Stop Time 10:25 Total Visit Minutes 55 Visit Information Visit Number Initial Evaluation Plan of Care Dates 03/05/19 - 05/29/19 Insurance Information Medicare Referral Referring Physician Colton Purcell Reason for Referral Dysphagia, Expressive Language deficits secondary to CVA Setting Assessment Location Outpatient Care Visit Type Note Type Initial Evaluation Next Note Type Next Note Type Treatment Note Patient Information History This 78-yr-old female is familiar to this clinician from previous speech therapy in 2016. She has a history of multiple strokes (2002, 2004, 2016), TIA (2014), and a minor closed head injury from a fall (2017). She provided case history and expressed c/o coughing with solids, particularly dry textures, to the extent of occasional vomiting from severity of cough. She denied coughing with liquids and reported some effort required for swallowing pills, although this typically is not a problem if she takes large pills one at a time. She also reported word-finding difficulties that result in reduced participation in conversations and social events. Subjective Observations The pt arrived on time and provided case history. Clinical bedside swallow evaluation was performed today . Plan to assess speech and language skills at next session. Pt in agreement. Pt completed EAT-10 perceptual evaluation, with score of 18/ 40 (45% impacted; score of 3 or greater indicates dysphagia ). Evaluation Liquids Trialed Thin Solids Trialed Puree Mechanical Soft Regular Administration Type Cup Single Sip Cup Consecutive Sips Self-Feeding Oral Impairment WFL Oral Strategies Upright at 90 degrees Oral Phase Comments Oral Peripheral Exam: WFL. Mild generalized weakness most notably labial. Air leakage from lips noted initially with air held in cheeks; however, the pt was able to perform adequate seal to prevent ENROLLMENT MANAGEMENT VICE PRESIDENT from pushing air out with manual pressure. Features were symmetrical. Soft palate elevated upon phonation. Adequate hyolaryngeal elevation/excursion noted upon palpation. Pt has complete set of natural teeth in good condition. Oral Phase: WFL. No anterior labial spillage observed. Mildly slowed bolus prep secondary to generalized reduced strength. A/P propulsion and swallow trigger appear timely. No abnormal oral residue observed. Pharyngeal Impairment Mildly Impaired Pharyngeal Strategies Sitting Upright (90 deg) Small Bites and Sips Pharyngeal Phase Comments No overt s/sx of aspiration were observed during today's trials. The pt maintained clear vocal quality. She consumed all trials at a slow rate of intake with small bites and sips. She had no complaints of sticking sensation or other swallow difficulty. The pt was educated on findings, and training in swallow exercises was initiated with oral and written instructions and demonstration. The pt returned demonstration of Kirstin and base/back of tongue exercises and verbalized understanding. Findings Dysphagia Type Suspect mild pharyngeal dysphagia Rehabilitation Potential Good Impressions Given the pt's complaints and tolerance of today's limited trials in a quiet and controlled environment, mild pharyngeal dysphagia is suspected. Further assessment, preferably over course of a meal, is required. Suspect pt' s swallow function and safety may be impacted by distractions and/or fatigue over greater durations and complexity of oral intake. Diet Recommendations Liquids Order Thin Diet Order Regular Medication Recommendations As Tolerated Comments Avoid dry, crumbly foods. Add moisture (e.g., sauces, gravies, etc.) Aspiration Precautions Recommended Precautions Upright at 90 Degrees Small Bites/Sips Additional Precautions Minimize distractions Treatment Plan Placement Recommendations after Home Discharge Appropriate for Therapy Yes Therapy Recommendations Ongoing assessment of swallow function/safety to determine risk of aspiration and guide POC. Training of exercises to increase efficiency and safety of swallow. Assessment of speech and language skills with goals to be added upon completion. Dysphagia Goals 1. The pt will participate in ongoing evaluation of swallow ability and safety to determine risk of aspiration and guide POC. 2. The pt will perform exercises to increase strength , coordination and ROM of swallow musculature with min cues to reduce risk of aspiration and improve pt safety, comfort and confidence with oral intake. 3. The pt will tolerate regular diet and thin liquids without overt s/sx of aspiration. 4. The pt will report increased confidence and ease with oral intake. ENROLLMENT MANAGEMENT VICE PRESIDENT Follow Up 1x/wk for 8 wks.
--- NOTE | 2019-03-19 17:34 | ST.OPIE ---
Visit Care Team Role Provider Type Conchita Felipe PA-C Attending Provider Advanced Special Agent In Charge Primary Care Provider Specialty: Internal Medicine Address: [address] [place] [address], [address] Email: [email or web address] Speech-Language Pathology Initial Evaluation NET SOFTWARE DEVELOPER Clinical Swallow Evaluation Start: 03/05/19 11:07 Freq: Status: Active Protocol: Document 03/05/19 12:21 BRENDEN (Rec: 03/05/19 12:29 BRENDEN [email or web address]) Clinical Swallow Evaluation Session Time Visit Start Time 09:30 Visit Stop Time 10:25 Total Visit Minutes 55 Visit Information Visit Number Initial Evaluation Plan of Care Dates 03/05/19 - 05/29/19 Insurance Information Medicare Referral Referring Physician Reynaldo Felipe Reason for Referral Dysphagia, Expressive Language deficits secondary to CVA Setting Assessment Location Outpatient Care Visit Type Note Type Initial Evaluation Next Note Type Next Note Type Treatment Note Patient Information History This 78-yr-old female is familiar to this clinician from previous speech therapy in 2016. She has a history of multiple strokes (2002, 2004, 2016), TIA (2014), and a minor closed head injury from a fall (2017). She provided case history and expressed c/o coughing with solids, particularly dry textures, to the extent of occasional vomiting from severity of cough. She denied coughing with liquids and reported some effort required for swallowing pills, although this typically is not a problem if she takes large pills one at a time. She also reported word-finding difficulties that result in reduced participation in conversations and social events. Subjective Observations The pt arrived on time and provided case history. Clinical bedside swallow evaluation was performed today . Plan to assess speech and language skills at next session. Pt in agreement. Pt completed EAT-10 perceptual evaluation, with score of 18/ 40 (45% impacted; score of 3 or greater indicates dysphagia ). Evaluation Liquids Trialed Thin Solids Trialed Puree,Mechanical Soft,Regular Administration Type Cup Single Sip,Cup Consecutive Sips,Self-Feeding Oral Impairment WFL Oral Strategies Upright at 90 degrees Oral Phase Comments Oral Peripheral Exam: WFL. Mild generalized weakness most notably labial. Air leakage from lips noted initially with air held in cheeks; however, the pt was able to perform adequate seal to prevent NET SOFTWARE DEVELOPER from pushing air out with manual pressure. Features were symmetrical. Soft palate elevated upon phonation. Adequate hyolaryngeal elevation/excursion noted upon palpation. Pt has complete set of natural teeth in good condition. Oral Phase: WFL. No anterior labial spillage observed. Mildly slowed bolus prep secondary to generalized reduced strength. A/P propulsion and swallow trigger appear timely. No abnormal oral residue observed. Pharyngeal Impairment Mildly Impaired Pharyngeal Strategies Sitting Upright (90 deg),Small Bites and Sips Pharyngeal Phase Comments No overt s/sx of aspiration were observed during today's trials. The pt maintained clear vocal quality. She consumed all trials at a slow rate of intake with small bites and sips. She had no complaints of sticking sensation or other swallow difficulty. The pt was educated on findings, and training in swallow exercises was initiated with oral and written instructions and demonstration. The pt returned demonstration of Kirstin and base/back of tongue exercises and verbalized understanding. Findings Dysphagia Type Suspect mild pharyngeal dysphagia Rehabilitation Potential Good Impressions Given the pt's complaints and tolerance of today's limited trials in a quiet and controlled environment, mild pharyngeal dysphagia is suspected. Further assessment, preferably over course of a meal, is required. Suspect pt' s swallow function and safety may be impacted by distractions and/or fatigue over greater durations and complexity of oral intake. Diet Recommendations Liquids Order Thin Diet Order Regular Medication Recommendations As Tolerated Comments Avoid dry, crumbly foods. Add moisture (e.g., sauces, gravies, etc.) Aspiration Precautions Recommended Precautions Upright at 90 Degrees,Small Bites/Sips Additional Precautions Minimize distractions Treatment Plan Placement Recommendations after Home Discharge Appropriate for Therapy Yes Therapy Recommendations Ongoing assessment of swallow function/safety to determine risk of aspiration and guide POC. Training of exercises to increase efficiency and safety of swallow. Assessment of speech and language skills with goals to be added upon completion. Dysphagia Goals 1. The pt will participate in ongoing evaluation of swallow ability and safety to determine risk of aspiration and guide POC. 2. The pt will perform exercises to increase strength , coordination and ROM of swallow musculature with min cues to reduce risk of aspiration and improve pt safety, comfort and confidence with oral intake. 3. The pt will tolerate regular diet and thin liquids without overt s/sx of aspiration. 4. The pt will report increased confidence and ease with oral intake. NET SOFTWARE DEVELOPER Follow Up 1x/wk for 8 wks. NET SOFTWARE DEVELOPER Language Evaluation Start: 03/05/19 11:07 Freq: Status: Active Protocol: Document 03/19/19 17:16 BRENDEN (Rec: 03/19/19 17:29 BRENDEN [email or web address]) Language Evaluation Session Time Visit Start Time 12:47 Visit Stop Time 13:18 Total Visit Minutes 31 Visit Information Visit Number 07/26 Plan of Care Dates 03/05/19 - 05/29/19 Insurance Information Medicare Next Note Type Next Note Type Treatment Note Language Evaluation Assessment Type Expressive/Receptive/Cognitive Communication Past Medical History Patient History This 78-yr-old female is familiar to this clinician from previous speech therapy in 2016. She has a history of multiple strokes (2002, 2004, 2016), TIA (2014), and a minor closed head injury from a fall (2017). She provided case history and expressed c/o coughing with solids, particularly dry textures, to the extent of occasional vomiting from severity of cough. She denied coughing with liquids and reported some effort required for swallowing pills, although this typically is not a problem if she takes large pills one at a time. She also reported word-finding difficulties that result in reduced participation in conversations and social events. Subjective Subjective The pt arrived late for her appointment, unaccompanied. No new complaints. She celebrated her 79th birthday over the weekend. - Formal Assessment Standardized Test Scales of Cognitive & Communicative Ability for Neurorehab (SCCAN) Administration Initiated,Incomplete Results Initiated assessment with the following subtests and raw scores: Oral Expression I: Repetition & Immediate Recall 5/5 Orientation: 06/27 Speech Comprehension Oral Expression II: Naming 5/6 Connected Speech & Problem Solving 8/8 Immediate Recall 3/3 Attention 5/7 Visual Problem Solving 3/3 Numeric Problem Solving 6/6 Delayed Recall 12 Reading and Writing tasks to be completed at next session. - Receptive Language - Expressive Language - Findings Language Findings The pt exhibited mild deficits in areas of naming and attention, consistent with her complaints. Auditory receptive language, orientation, memory and problem solving skills appear to be WNL. Reading and writing skills will be assessed at next session. Recommendations Recommendations Continue treatment targeting word recall strategies and, as needed, attention skills. Treatment Goals Short Term Goals Goals to be determined pending completion of SCCAN Slack Line Yarder Goals 1. Pt will demonstrate expressive lanugage skills WFL to increase ability to express her needs and ideas and to participate in social interactions with minimal inhibition due to expressive language deficits.
--- NOTE | 2019-03-19 17:34 | ST.IPDYTX ---
Visit Care Team Role Provider Type Conchita Felipe PA-C Attending Provider Advanced Automatic Print Developer Primary Care Provider Specialty: Internal Medicine Address: [address] [place] [address], [address] Email: [email or web address] Dysphagia Treatment VOCATIONAL COUNSELOR Dysphagia Treatment Start: 03/05/19 11:07 Freq: Status: Active Protocol: Document 03/19/19 17:29 BRENDEN (Rec: 03/19/19 17:31 BRENDEN [email or web address]) Dysphagia Treatment Session Time Visit Start Time 12:37 Visit Stop Time 12:47 Total Visit Minutes 10 Treatment Treatment Activities Trained pt in laryngeal elevation exercises using straw. Pt returned demonstration and verbalized understanding. Instructions were provided orally and in writing with demonstration. Assessment Assessment of Improvement The pt demonstrates understanding of and ability to perform swallow exercises. Treatment Plan Appropriate for Continued Therapy Yes Dysphagia Goals 1. The pt will participate in ongoing evaluation of swallow ability and safety to determine risk of aspiration and guide POC. 2. The pt will perform exercises to increase strength , coordination and ROM of swallow musculature with min cues to reduce risk of aspiration and improve pt safety, comfort and confidence with oral intake. 3. The pt will tolerate regular diet and thin liquids without overt s/sx of aspiration. 4. The pt will report increased confidence and ease with oral intake.
--- NOTE | 2019-04-02 16:02 | ST.OPTN ---
Visit Care Team Role Provider Type Conchita Felipe PA-C Attending Provider Advanced Mobile Home Lot Utility Worker Primary Care Provider Address: [address] [place] [address], [id number] APPRENTICE MACHINIST OUTSIDE Treatment Note APPRENTICE MACHINIST OUTSIDE Treatment Note Start: 03/05/19 11:07 Freq: Status: Active Protocol: Document 04/02/19 14:05 BRENDEN (Rec: 04/02/19 14:06 BRENDEN [email or web address]) Speech Pathology Treatment Note Session Time Visit Start Time 09:32 Visit Stop Time 10:16 Total Visit Minutes 48 Visit Information Visit Number 08/26 Plan of Care Dates 03/05/19 - 05/29/19 Insurance Information Medicare Setting Treatment Setting Outpatient Care Visit Type Note Type Treatment Note Next Note Type Next Note Type Treatment Note General Information General Information This 78-yr-old female is familiar to this clinician from previous speech therapy in 2015. She has a history of multiple strokes (2001, 2004, 2016), TIA (2014), and a minor closed head injury from a fall (2017). She provided case history and expressed c/o coughing with solids, particularly dry textures, to the extent of occasional vomiting from severity of cough. She denied coughing with liquids and reported some effort required for swallowing pills, although this typically is not a problem if she takes large pills one at a time. She also reported word-finding difficulties that result in reduced participation in conversations and social events. Subjective Observations/Patient Presentation The pt arrived on time. Reported some coughing since last seen. Stated she has not completed swallow exercises consistently d/t having family visitors. Chief Complaint(s) Language,Swallowing Objective Care Home Goals 1. Pt will demonstrate expressive language skills WFL to increase ability to express her needs and ideas and to participate in social interactions with minimal inhibition due to expressive language deficits. Treatment Activities Completed administration of SCCAN with the following results: Total Raw Score: 91 %ile Rank: 61 SCCAN Index: 106 Degree of Severity: Typical Functioning Oral Expression 95% Orientation 100% Memory 100% Speech Comprehension 100% Reading Comprehension 100% Writing 100% Attention 81% Problem Solving 91% Trained pt in word recall strategies: Semantic Features Analysis, use of gestures. Confrontational Namin% acc Completion of Semantic Features Analysis task: 100% min prompts Assessment Patient Response to Treatment Good Rehab Potential Good Impairments Identified Dysphagia,Expressive Language Assessment of Improvement Pt presents with mild expressive language deficits, primarily word finding difficulties that impact speed and quality of communication as well as the pt's social interactions. Mild deficits in attention may contribute to language deficits. The pt is familiar with some compensatory word recall strategies, such as use of gestures and semantic feature analysis/description. Skilled intervention is medically necessary to provide training in compensatory strategies and in expressive language skills in order for the pt to communicate optimally in her functional environment, maintain relationships and social interactions, and improve/maintain highest level of quality of life. Reviewed with Patient Goals,Progress Being Made,Home Exercise Program Patient/Caregiver Understanding Excellent Plan Amount of Therapy Recommended 2-3 Months Frequency of Treatment Once a Week Length of Session 45 Minutes Treatment Emphasis Next Session F/U swallow exercises; cont training in word recall exercises & strategies Therapeutic Contents Client Education,Expressive Language Training,Home Exercise Program,Swallowing/ Feeding Provided Patient/Caregiver Instruction Home Exercise Program,Plan of Care,Questions/Concerns Therapy Recommendations Continue with Current Program
--- NOTE | 2019-04-02 16:07 | ST.OPTN ---
Visit Care Team Role Provider Type Conchita Felipe PA-C Attending Provider Advanced Glass Grinder Primary Care Provider Address: [address] [place] [address], [place], [address] AIR BATTLE MANAGER Treatment Note AIR BATTLE MANAGER Treatment Note Start: 03/05/19 11:07 Freq: Status: Active Protocol: Document 04/02/19 14:05 BRENDEN (Rec: 04/02/19 14:06 BRENDEN [email or web address]) Speech Pathology Treatment Note Session Time Visit Start Time 09:32 Visit Stop Time 10:16 Total Visit Minutes 48 Visit Information Visit Number 08/26 Plan of Care Dates 03/05/19 - 05/29/19 Insurance Information Medicare Setting Treatment Setting Outpatient Care Visit Type Note Type Treatment Note Next Note Type Next Note Type Treatment Note General Information General Information This 78-yr-old female is familiar to this clinician from previous speech therapy in 2015. She has a history of multiple strokes (2001, 2004, 2016), TIA (2014), and a minor closed head injury from a fall (2017). She provided case history and expressed c/o coughing with solids, particularly dry textures, to the extent of occasional vomiting from severity of cough. She denied coughing with liquids and reported some effort required for swallowing pills, although this typically is not a problem if she takes large pills one at a time. She also reported word-finding difficulties that result in reduced participation in conversations and social events. Subjective Observations/Patient Presentation The pt arrived on time. Reported some coughing since last seen. Stated she has not completed swallow exercises consistently d/t having family visitors. Chief Complaint(s) Language,Swallowing Objective Short Term Goals 1. Pt will perform word recall exercises with 80% accuracy across a variety of tasks to increase expressive language skills. 2. Pt will use compensatory word recall strategies in 80% of opportunities in structured tasks to improve expressive language skills and minimize risk of communication breakdowns. Chcf Goals 1. Pt will demonstrate expressive language skills WFL to increase ability to express her needs and ideas and to participate in social interactions with minimal inhibition due to expressive language deficits. Treatment Activities Completed administration of SCCAN with the following results: Total Raw Score: 91 %ile Rank: 61 SCCAN Index: 106 Degree of Severity: Typical Functioning Oral Expression 95% Orientation 100% Memory 100% Speech Comprehension 100% Reading Comprehension 100% Writing 100% Attention 81% Problem Solving 91% Trained pt in word recall strategies: Semantic Features Analysis, use of gestures. Confrontational Namin% acc Completion of Semantic Features Analysis task: 100% min prompts Assessment Patient Response to Treatment Good Rehab Potential Good Impairments Identified Dysphagia,Expressive Language Assessment of Improvement Pt presents with mild expressive language deficits, primarily word finding difficulties that impact speed and quality of communication as well as the pt's social interactions. Mild deficits in attention may contribute to language deficits. The pt is familiar with some compensatory word recall strategies, such as use of gestures and semantic feature analysis/description. Skilled intervention is medically necessary to provide further training in compensatory strategies and in expressive language skills in order for the pt to communicate optimally in her functional environment, maintain relationships and social interactions, and improve/ maintain highest level of quality of life. Reviewed with Patient Goals,Progress Being Made,Home Exercise Program Patient/Caregiver Understanding Excellent Plan Amount of Therapy Recommended 2-3 Months Frequency of Treatment Once a Week Length of Session 45 Minutes Treatment Emphasis Next Session F/U swallow exercises; cont training in word recall exercises & strategies Therapeutic Contents Client Education,Expressive Language Training,Home Exercise Program,Swallowing/ Feeding Provided Patient/Caregiver Instruction Home Exercise Program,Plan of Care,Questions/Concerns Therapy Recommendations Continue with Current Program
--- NOTE | 2019-04-09 10:56 | ST.OPTN ---
Visit Care Team Role Provider Type Conchita Felipe PA-C Attending Provider Advanced Parts Expediter Primary Care Provider Address: [address] [place] [address], [place], [address] SUPERVISOR FISHING Treatment Note SUPERVISOR FISHING Treatment Note Start: 03/05/19 11:07 Freq: Status: Active Protocol: Document 04/09/19 10:46 BRENDEN (Rec: 04/09/19 10:56 BRENDEN [id number]) Speech Pathology Treatment Note Session Time Visit Start Time 09:34 Visit Stop Time 10:19 Total Visit Minutes 45 Visit Information Visit Number 09/23 Plan of Care Dates 03/05/19 - 05/29/19 Insurance Information Medicare Setting Treatment Setting Outpatient Care Visit Type Note Type Treatment Note Next Note Type Next Note Type Treatment Note General Information General Information This 78-yr-old female is familiar to this clinician from previous speech therapy in 2016. She has a history of multiple strokes (2002, 2004, 2016), TIA (2014), and a minor closed head injury from a fall (2017). She provided case history and expressed c/o coughing with solids, particularly dry textures, to the extent of occasional vomiting from severity of cough. She denied coughing with liquids and reported some effort required for swallowing pills, although this typically is not a problem if she takes large pills one at a time. She also reported word-finding difficulties that result in reduced participation in conversations and social events. Subjective Observations/Patient Presentation The pt arrived on time. Reported having lost balance and falling in her bathroom a few days ago. She denied hitting her head and did see her doctor after, who identified a hematoma on her leg. No other significant injury; however, the pt stated , I'm just not generally feeling well since I fell. She also reported increased compliance with swallow HEP. Did not complete expressive language exercises. When asked if an exercise journal would be helpful, she agreed. Chief Complaint(s) Language,Swallowing Objective Short Term Goals 1. Pt will perform word recall exercises with 80% accuracy across a variety of tasks to increase expressive language skills. 2. Pt will use compensatory word recall strategies in 80% of opportunities in structured tasks to improve expressive language skills and minimize risk of communication breakdowns. Snf Goals 1. Pt will demonstrate expressive language skills WFL to increase ability to express her needs and ideas and to participate in social interactions with minimal inhibition due to expressive language deficits. Treatment Activities Established exercise journal to promote HEP compliance. Trained pt in organizational thought strategies to increase word recall. Using strategies with min-mod prompts, the pt named up to 16 items in concrete categories (range of 11-16 x3 trials) and up to 12 items in abstract categories ( range of 6-12 x3 trials). Need for cuing increased with abstract categories. The pt was highly responsive to prompts and verbalized/ demonstrated understanding of education. The pt exhibited WFD x2 during tasks and conversation and independently initiated use of recall strategies (e.g., using gestures, describing target). The pt recalled one of the two words (50% success) and adequately described the second to avoid a conversation breakdown. Skilled feedback was provided. Assessment Patient Response to Treatment Good Rehab Potential Good Impairments Identified Dysphagia,Expressive Language Assessment of Improvement Pt demonstrated good response to education and training, increasing categorical word recall with strategy use. She also is demonstrating improving use of word recall strategies in conversation with success in either generating the word or avoiding conversation breakdowns. Reviewed with Patient Goals,Progress Being Made,Home Exercise Program Patient/Caregiver Understanding Excellent Plan Amount of Therapy Recommended 2-3 Months Frequency of Treatment Once a Week Length of Session 45 Minutes Treatment Emphasis Next Session F/U swallow exercises; cont training in word recall exercises & strategies Therapeutic Contents Client Education,Expressive Language Training,Home Exercise Program,Swallowing/ Feeding Provided Patient/Caregiver Instruction Home Exercise Program,Plan of Care,Questions/Concerns Therapy Recommendations Continue with Current Program
--- NOTE | 2019-04-17 14:16 | ST.OPTN ---
Addendum entered and electronically signed by Katarzyna Joya 04/17/19 14:17: Treatment date incorrectly documented. Actual treatment date was 04/16/19. Original Note: Visit Care Team Role Provider Type Conchita Felipe PA-C Attending Provider Advanced Javascript Engineer Primary Care Provider Address: [address] [place] [address], [id number] PRINTED CIRCUIT BOARDS STRIPPER ETCHER Treatment Note PRINTED CIRCUIT BOARDS STRIPPER ETCHER Treatment Note Start: 03/05/19 11:07 Freq: Status: Active Protocol: Document 04/17/19 14:05 BRENDEN (Rec: 04/17/19 14:16 BRENDEN [email or web address]) Speech Pathology Treatment Note Session Time Visit Start Time 09:30 Visit Stop Time 10:15 Total Visit Minutes 45 Visit Information Visit Number 10/24 Plan of Care Dates 03/05/19 - 05/29/19 Insurance Information Medicare Setting Treatment Setting Outpatient Care Visit Type Note Type Treatment Note Next Note Type Next Note Type Treatment Note General Information General Information This 78-yr-old female is familiar to this clinician from previous speech therapy in 2016. She has a history of multiple strokes (2002, 2004, 2016), TIA (2014), and a minor closed head injury from a fall (2017). She provided case history and expressed c/o coughing with solids, particularly dry textures, to the extent of occasional vomiting from severity of cough. She denied coughing with liquids and reported some effort required for swallowing pills, although this typically is not a problem if she takes large pills one at a time. She also reported word-finding difficulties that result in reduced participation in conversations and social events. Subjective Observations/Patient Presentation The pt arrived on time and reported occasional compliance with swallow exercises but not every day, and poor compliance with speech- language exercises. She stated she did not use the journal that was developed at last session but would attempt to do so in the coming week. She stated that she is not participating in conversations as she used to or would like to because she has difficulty following the fast pace. She stated, I don't feel like myself. Chief Complaint(s) Language,Swallowing Rehab Expectation/Goals: Patient Goals Reduce coughing with swallow; Improve word recall, expressive language skil Patient Knowledge/Awareness of PRINTED CIRCUIT BOARDS STRIPPER ETCHER Role Good in Treatment Patient/Caregiver Compliance with Home Poor Exercise Program Objective Short Term Goals 1. Pt will perform word recall exercises with 80% accuracy across a variety of tasks to increase expressive language skills. 2. Pt will use compensatory word recall strategies in 80% of opportunities in structured tasks to improve expressive language skills and minimize risk of communication breakdowns. Chcf Goals 1. Pt will demonstrate expressive language skills WFL to increase ability to express her needs and ideas and to participate in social interactions with minimal inhibition due to expressive language deficits. Treatment Activities Swallow: Facilitated completion of swallow exercises. Pt completed 10 reps each of Kirstin, base of tongue exercise, hyolaryngeal elevation exercises. Pt exhibited difficulty performing base of tongue exercises per instructions to press tongue against roof of mouth. No lingual contraction was observed via palpation. Instructions were modified to perform anterior/posterior tracing of hard palate with tongue tip, which resulted in mild-moderate contraction of base of tongue. The pt also exhibited initial difficulty with sucking/ smacking exercises targeting lip seal and buccal strength/ coordination. With practice, verbal instruction and demonstration, she improved and was able to perform with mild elevation of larynx resulting. Needs reinforcement . Expressive Language: Skilled feedback and education was provided to pt including strategies to increase participation in social communicative activities. The pt agreed that preparing a comment prior to attending her book club would be a good strategy. She will not be attending the club this week. Will revisit this strategy at next session. Assessment Patient Response to Treatment Good Rehab Potential Good Impairments Identified Dysphagia,Expressive Language Assessment of Improvement Pt exhibit moderate difficulty with base of tongue and hyolaryngeal exercises, improved with modifications. With extended time, she was able to perform Kirstin with minimal extension of tongue between teeth. The pt continues with moderate impairments of strength and coordination of swallow musculature, impacting swallow function and safety. Increased compliance with home practice is critical to improvement. Pt verbalized understanding. Needs reinforcement. Reviewed with Patient Goals,Progress Being Made,Home Exercise Program Patient/Caregiver Understanding Excellent Plan Amount of Therapy Recommended 2-3 Months Frequency of Treatment Once a Week Length of Session 45 Minutes Treatment Emphasis Next Session F/U swallow exercises; cont training in word recall exercises & strategies Therapeutic Contents Client Education,Expressive Language Training,Home Exercise Program,Swallowing/ Feeding Provided Patient/Caregiver Instruction Home Exercise Program,Plan of Care,Questions/Concerns Therapy Recommendations Continue with Current Program
--- NOTE | 2019-04-24 13:23 | ST.OPTN ---
Visit Care Team Role Provider Type Conchita Felipe PA-C Attending Provider Advanced Multiple Drill Operator Primary Care Provider Address: [address] [place] [address], [place], [address] YARD CLERK Treatment Note YARD CLERK Treatment Note Start: 03/05/19 11:07 Freq: Status: Active Protocol: Document 04/24/19 12:42 BRENDEN (Rec: 04/24/19 12:44 BRENDEN [email or web address]) Speech Pathology Treatment Note Session Time Visit Start Time 12:30 Visit Stop Time 13:15 Total Visit Minutes 45 Visit Information Visit Number 11/23 Plan of Care Dates 03/05/19 - 05/29/19 Insurance Information Medicare Setting Treatment Setting Outpatient Care Visit Type Note Type Treatment Note Next Note Type Next Note Type Treatment Note General Information General Information This 78-yr-old female is familiar to this clinician from previous speech therapy in 2016. She has a history of multiple strokes (2002, 2004, 2016), TIA (2014), and a minor closed head injury from a fall (2017). She provided case history and expressed c/o coughing with solids, particularly dry textures, to the extent of occasional vomiting from severity of cough. She denied coughing with liquids and reported some effort required for swallowing pills, although this typically is not a problem if she takes large pills one at a time. She also reported word-finding difficulties that result in reduced participation in conversations and social events. Subjective Observations/Patient Presentation The pt arrived on time and reported much improved compliance with swallow and speech-language and having increased her effort to talk in groups at spiritism. She could recall no episodes of WFD that required compensatory strategies. Chief Complaint(s) Language,Swallowing Rehab Expectation/Goals: Patient Goals Reduce coughing with swallow; Improve word recall, expressive language skil Patient Knowledge/Awareness of YARD CLERK Role Good in Treatment Patient/Caregiver Compliance with Home Poor Exercise Program Objective Short Term Goals 1. Pt will perform word recall exercises with 80% accuracy across a variety of tasks to increase expressive language skills. 2. Pt will use compensatory word recall strategies in 80% of opportunities in structured tasks to improve expressive language skills and minimize risk of communication breakdowns. Business Banking Officer Goals 1. Pt will demonstrate expressive language skills WFL to increase ability to express her needs and ideas and to participate in social interactions with minimal inhibition due to expressive language deficits. Treatment Activities Swallow: Pt consumed oral trials of thin liquid from cup , diced peaches (mixed texture ) and dry jass cracker with sips of water as needed without overt s/sx of aspiration. Expressive Language: Convergent naming 100%, rapid responses. Synonyms 96% need for 1 phonemic cueing which assisted pt in word production . Antonyms 100%. Adequate rate of word production with synonyms and antonyms. Abstract Categorical Namin -5 items listed in 60 sec; pt able to continue naming with mod verbal prompts. Naming items that begin with certain letters, 100% min cues. Assessment Patient Response to Treatment Good Rehab Potential Good Impairments Identified Dysphagia,Expressive Language Assessment of Improvement Much improvement seen today and reported by pt. She has increased her compliance with HEP and exhibited no overt s/ sx of aspiration with a variety of textures in therapeutic trials. In word production tasks, the pt produced words in rapid succession. She produced limited items in abstract categories independently in 60 seconds each but was responsive to verbal prompts. Over course of session, she exhibited 2 WFD which resolved with phonemic cues. Reviewed with Patient Goals,Progress Being Made,Home Exercise Program Patient/Caregiver Understanding Excellent Plan Treatment Emphasis Next Session F/U swallow exercises; cont training in word recall exercises & strategies Therapeutic Contents Client Education,Expressive Language Training,Home Exercise Program,Swallowing/ Feeding Provided Patient/Caregiver Instruction Home Exercise Program,Plan of Care,Questions/Concerns Therapy Recommendations Continue with Current Program
--- NOTE | 2019-09-17 08:44 | ST.OPDS ---
Visit Care Team Role Provider Type Conchita Felipe PA-C Attending Provider Advanced Air Traffic Instructor Primary Care Provider Address: [address] [place] [address], [id number] FRUIT HARVESTER MACHINE OPERATOR Treatment Note FRUIT HARVESTER MACHINE OPERATOR Treatment Note Start: 03/05/19 11:07 Freq: Status: Active Protocol: Document 09/17/19 08:43 BRENDEN (Rec: 09/17/19 08:44 BRENDEN [id number]) Speech Pathology Treatment Note Visit Information Insurance Information Medicare Setting Treatment Setting Outpatient Care Visit Type Note Type Discharge Summary Subjective Observations/Patient Presentation The pt has not returned for ongoing treatment and is discharged from services. Plan Therapy Recommendations Discharge from Speech Therapy
== END 2019-09-17 13:11 ==
LOC: SP 12:30
PROVIDERS: PCP Physician Assistant; Visit Provider Physician Assistant
DX: I63.9 Cerebral infarction, unspecified (principal)
CPT/HCPCS: 92507; 92523; 92526; 92610

== ENCOUNTER → 2019-11-20 13:06 | Outpatient (CLI) | payer MEDICARE, OTHER, SELFPAY ==
[2018-07-13 13:53] VITALS: BMI 25.7
--- NOTE | 2019-11-20 | DI.RAD.S_ITS ---
PROCEDURE: XR WRIST LT MIN 3V INDICATIONS: WRIST PAIN TECHNIQUE: 3 views of the wrist were acquired. COMPARISON: None. FINDINGS: Bones: Distal radial metaphyseal buckle fracture, which is technically age indeterminate however cannot exclude acute in the absence of prior studies No suspicious bony lesions. Severe third MCP joint degeneration. Possible hooklike osteophyte which raises the possibility of chronic deposition arthropathy. Mild to moderate second MCP joint degeneration. First CMC and triscaphe joint degeneration Soft tissues: No suspicious soft tissue calcifications. IMPRESSION: Age-indeterminate distal radial metaphyseal fracture although suspected to be acute or subacute. Recommend followup radiographs in 10 days to assess for healing sclerosis. Dictated by: Aneudy Floyd M.D. on 11/20/2019 at 14:29 Approved by: Aneudy Floyd M.D. on 11/20/2019 at 15:14
== END ==
PROVIDERS: PCP Physician Assistant; Referring Provider Internal Medicine; Visit Provider Internal Medicine
DX: M25.532 Pain in left wrist (principal); S52.522A Torus fracture of lower end of left radius, initial encounter for closed fracture; M18.12 Unilateral primary osteoarthritis of first carpometacarpal joint, left hand; M19.042 Primary osteoarthritis, left hand; X58.XXXA Exposure to other specified factors, initial encounter
CPT/HCPCS: 73110

== ENCOUNTER 2020-05-27 11:15 | Outpatient (RCR) | payer MEDICARE, OTHER, SELFPAY ==
[2018-07-13 13:53] VITALS: BMI 25.7
--- NOTE | 2019-03-13 12:27 | PT.OIE ---
Current Diagnoses Cerebral infarction, unspecified (03/13/19) Muscle weakness (generalized) (03/13/19) Other abnormalities of gait and mobility (03/13/19) Past Medical History (Last Updated 07/13/18 @ 17:01 by Azael Simmnos DO) CVA (cerebral vascular accident) (Acute) Stroke (Acute) Visit Care Team Role Provider Type Conchita Felipe PA-C Attending Provider Advanced Nurse Ob Primary Care Provider Specialty: Internal Medicine Address: [address] [place] [address], [facility] Email: [email or web address] [facility] Initial Evaluation PT-OP-A Visit Information Start: 03/13/19 11:58 Freq: Status: Active Protocol: Document 03/13/19 11:15 DCW (Rec: 03/13/19 12:27 DCW [id number]) Out-Patient Physical Therapy Visit Information Visit Information Visit Type Initial Evaluation Visit Start Time 11:15 Visit Stop Time 11:55 Total Visit Minutes 40 Visit Number 1 Number of FURNITURE ASSOCIATE Visits 0 Evaluation Information Evaluation Date 03/13/19 PT-OP-B Current Condition Start: 03/13/19 11:58 Freq: Status: Active Protocol: Document 03/13/19 11:15 DCW (Rec: 03/13/19 12:27 DCW [id number]) Current Condition History of Current Condition Onset Date Multi-year history Current Complaints Fatigue, weakness, imbalance, decreased gait speed History of Current Condition Pt is a 78 year old female well known to this clinic presenting with what she calls a loss of ground following her last round of physical therapy earlier in the year. Pt has a history of 5 separate CVAs, and feels her largest problem is her very slow gait speed, as well as weakness. Her slow gait speed is a long- standing issue which has previously been addressed at physical therapy, and she has shown some improvement, but typically does not perform a lot of HEP following discharge , and typically then regresses . 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 Prior Treatments and Tests Multiple rounds of physical therapy Treatment Goals Patient/Caregiver Goals Improve strength and gait speed Prior Functional Status Baseline Function- ADL's Needs Assist Baseline Function- Mobility Needs Assist Baseline Function- Gait Very slow gait with bilateral walking sticks PT-OP-C Subjective Start: 03/13/19 11:58 Freq: Status: Active Protocol: Document 03/13/19 11:15 DCW (Rec: 03/13/19 12:27 DCW [id number]) OP-PT Subjective Patient Comments Patient Comments I've just lost ground since the last time I was here. Patient Reported Progress Worse OP-PT Pain Assessment Pain Assessment Grid Paper Pain Assessment Grid Completed Yes Location Lower Back Intensity 5 Scale Used Numeric (1 - 10) PT-OP-D Balance Start: 03/13/19 11:58 Freq: Status: Active Protocol: Document 03/13/19 11:15 DCW (Rec: 03/13/19 12:27 DCW [id number]) OP-PT Balance Assessment Sitting Balance Static Sitting Balance Ability Good Dynamic Sitting Balance Ability Good Standing Balance Static Standing Balance Ability Fair Dynamic Standing Balance Ability Poor Tinetti Balance Assessment Sitting Balance Sitting Balance Leans or slides in chair Arising from Chair Ability to Arise Able, uses arms to help Attempts to Arise Able, requires >1 attempt Standing Balance Immediate Standing Balance Steady w/o support Standing Balance Steady, wide stance Nudged Response Steady Standing with Eyes Closed Steady Turning Step Pattern Turning 360 Degrees Discontinuous steps Stability Turning 360 Degrees Steady Sitting Down Sitting Down Uses arms or unsteady Gait and Step Initiation of Gait No hesitancy Right Foot Step Length Does pass stance foot Right Foot Step Height Does not clear floor Left Foot Step Length Does pass stance foot Left Foot Step Height Does not clear floor Step Description Step Symmetry Step length appears equal Step Continuity Stopping or discontinuity Gait Description Path Description Mild/moderate deviation Trunk Description Marked sway or uses aide Walking Stance Heels apart Scoring and Interpretation Tinetti Composite Score (points) 15 Interpretation of Scores High risk for falls(< 19) Tinetti Impairment Rating from Composite 40 to <60% Impaired (Score 12- Score 16) Vann Fall Scale Copyright Permission PT-OP-E Functional Tests Start: 03/13/19 11:58 Freq: Status: Active Protocol: Document 03/13/19 11:15 DCW (Rec: 03/13/19 12:27 DCW [id number]) Functional Tests 2 Minute Walk Test Distance 90' Device Used Bilateral walking sticks Comments .75 ft/sec Timed Up and Go (TUG) Score 45.07 Comments 3-trial average (50.38, 46.07, 38.75) TUG Impairment Rating 100% Impaired (Score 20) Tinetti Balance and Gait Assessment Balance Score 10 Gait Score 5 Composite Score 15 Balance Score Impairment Rating 20 to <40% Impaired (Score 10- 12) Gait Score Impairment Rating 40 to <60% Impaired (Score 5-7 ) Composite Score Impairment Rating 40 to <60% Impaired (Score 12- 16) PT-OP-M Strength Start: 03/13/19 11:58 Freq: Status: Active Protocol: Document 03/13/19 11:15 DCW (Rec: 03/13/19 12:27 DCW [id number]) Hip Strength Hip Manual Muscle Testing Right Flexion (L2) 4- Good- Abduction 4- Good- Adduction 4- Good- Left Flexion (L2) 4 Good Abduction 4- Good- Adduction 4- Good- Knee Strength Knee Manual Muscle Testing Right Flexion (S2) 4 Good Extension (L3) 4+ Good+ Left Flexion (S2) 4+ Good+ Extension (L3) 4+ Good+ Ankle/Foot Strength Ankle and Foot Manual Muscle Testing Right Dorsiflexion (L4) 4 Good Plantarflexion (S1) 4- Good- Left Dorsiflexion (L4) 4 Good Plantarflexion (S1) 4- Good- PT-OP-T Assessment and Plan Start: 03/13/19 11:58 Freq: Status: Active Protocol: Document 03/13/19 11:15 DCW (Rec: 03/13/19 12:27 DCW [id number]) Physical Therapy Assessment Rehab Potential Rehabilitation Potential Fair Evaluation Complexity Number of Personal Factors/Comorbidities 3 or More Number of Body Systems Impaired 4 or More Clinical Presentation at Evaluation Evolving Impairments Impairments Activity Tolerance,Balance, Functional Activities, Functional Mobility,Gait, Posture,Strength,Transfers Other Concerns Fall Risk Yes, per Tinetti () and TUG (45.07 sec) Barriers to Rehabilitation Multiple CVA history, extensive PT history with limited improvement Goals Four Impairment Tinetti Paper Making Machine Operator Goal (LTG) Pt to score at least 20/28 on Tinetti Balance Assessment LTG Duration 05/13/19 Three Impairment LE MMT Jail Goal (LTG) PT LE MMT grossly to 4/5 in order to improve balance and activity tolerance LTG Duration 05/13/19 Two Impairment Gait speed of .75 ft/sec during two minute walk test Paper Making Machine Operator Goal (LTG) Pt gait speed to 1.2 ft/sec (6 MWT distance of 144'). A gait speed of less than1.97 indicates a greater likelihood of further functional decline in older adults LTG Duration 05/13/19 One Impairment Pt does not have an appropriate home exercise program Short Term Goal (STG) Pt to be independent and compliant with an appropriate HEP STG Duration 04/13/19 Assessment Summary Assessment Pt presents with similar signs and symptoms compared to how she has presented in the past. Pt does appear to have declined in function from the time of her previous discharge , in nearly all areas. Activity tolerance, LE strength, balance, and gait speed have all declined in the past ~6 months Pt should benefit from skilled therapy focusing on strength, balance training, gait training, and improved activity tolerance. Pt currently demonstrated falls risk and an increased risk of further functional decline based on her scores in the Tinetti Balance Assessment (), TUG (45.07 sec), and her gait speed of . 75 ft/sec. Physical Therapy Plan Frequency and Duration Frequency of Treatment 2x/Week Duration of Treatment 12 weeks Plan of Care Start Date 03/13/19 Plan of Care End Date 06/05/19 Therapeutic Interventions Therapeutic Interventions Aquatic Therapy,Balance Training,Home Exercise Program ,Neuromuscular Re-education, Patient/Caregiver Education, Self-Care/Home Management,Soft Tissue Mobilization, Therapeutic Activities, Therapeutic Exercises Next Visit Focus/Plan Next Note Type Treatment Note Next Visit Plan Strengthening, gait training, gait speed, balance training
--- NOTE | 2019-03-13 12:29 | PT.OPPOC ---
Current Diagnoses Cerebral infarction, unspecified (03/13/19) Muscle weakness (generalized) (03/13/19) Other abnormalities of gait and mobility (03/13/19) Visit Care Team Role Provider Type Conchita Felipe PA-C Attending Provider Advanced Metal Precision Machine Assembler Primary Care Provider Specialty: Internal Medicine Address: [address] [place] [address], [id number] Email: [email or web address] Of Care PT-OP-T Assessment and Plan Start: 03/13/19 11:58 Freq: Status: Active Protocol: Document 03/13/19 11:15 DCW (Rec: 03/13/19 12:27 DCW [id number]) Physical Therapy Assessment Rehab Potential Rehabilitation Potential Fair Evaluation Complexity Number of Personal Factors/Comorbidities 3 or More Number of Body Systems Impaired 4 or More Clinical Presentation at Evaluation Evolving Impairments Impairments Activity Tolerance,Balance, Functional Activities, Functional Mobility,Gait, Posture,Strength,Transfers Other Concerns Fall Risk Yes, per Tinetti () and TUG (45.07 sec) Barriers to Rehabilitation Multiple CVA history, extensive PT history with limited improvement Goals Four Impairment Tinetti Assisted Goal (LTG) Pt to score at least 20/28 on Tinetti Balance Assessment LTG Duration 05/13/19 Three Impairment LE MMT Demand Equipment Repairer Goal (LTG) PT LE MMT grossly to 4/5 in order to improve balance and activity tolerance LTG Duration 05/13/19 Two Impairment Gait speed of .75 ft/sec during two minute walk test Assisted Goal (LTG) Pt gait speed to 1.2 ft/sec (6 MWT distance of 144'). A gait speed of less than1.97 indicates a greater likelihood of further functional decline in older adults LTG Duration 05/13/19 One Impairment Pt does not have an appropriate home exercise program Short Term Goal (STG) Pt to be independent and compliant with an appropriate HEP STG Duration 04/13/19 Assessment Summary Assessment Pt presents with similar signs and symptoms compared to how she has presented in the past. Pt does appear to have declined in function from the time of her previous discharge , in nearly all areas. Activity tolerance, LE strength, balance, and gait speed have all declined in the past ~6 months Pt should benefit from skilled therapy focusing on strength, balance training, gait training, and improved activity tolerance. Pt currently demonstrated falls risk and an increased risk of further functional decline based on her scores in the Tinetti Balance Assessment (), TUG (45.07 sec), and her gait speed of . 75 ft/sec. Physical Therapy Plan Frequency and Duration Frequency of Treatment 2x/Week Duration of Treatment 12 weeks Plan of Care Start Date 03/13/19 Plan of Care End Date 06/05/19 Therapeutic Interventions Therapeutic Interventions Aquatic Therapy,Balance Training,Home Exercise Program ,Neuromuscular Re-education, Patient/Caregiver Education, Self-Care/Home Management,Soft Tissue Mobilization, Therapeutic Activities, Therapeutic Exercises Next Visit Focus/Plan Next Note Type Treatment Note Next Visit Plan Strengthening, gait training, gait speed, balance training Plan of Care Dates Plan of Care Start Date 03/13/19 Plan of Care End Date 06/05/19 Please Sign and Return: I have reviewed this Plan of Care and certify that the skilled therapy services above are required to meet the patient?s needs. Physician Signature Date Printed Name and Credentials Clinical Instructor Signature Printed Name and Credentials
--- NOTE | 2019-03-27 11:55 | PT.OTN ---
Current Diagnoses Cerebral infarction, unspecified (03/27/19) Muscle weakness (generalized) (03/27/19) Other abnormalities of gait and mobility (03/27/19) Physical Therapy Treatment Note PT-OP-A Visit Information Start: 03/13/19 11:58 Freq: Status: Active Protocol: Document 03/27/19 11:15 DCW (Rec: 03/27/19 11:55 DCW [id number]) Out-Patient Physical Therapy Visit Information Visit Information Visit Type Treatment Note Visit Start Time 11:15 Visit Stop Time 12:00 Total Visit Minutes 45 Visit Number 2 Number of SUSTAINABLE COMMUNITIES DESIGNER Visits 0 Evaluation Information Evaluation Date 03/13/19 PT-OP-B Current Condition Start: 03/13/19 11:58 Freq: Status: Active Protocol: Document 03/13/19 11:15 DCW (Rec: 03/13/19 12:27 DCW [id number]) Current Condition History of Current Condition Onset Date Multi-year history Current Complaints Fatigue, weakness, imbalance, decreased gait speed History of Current Condition Pt is a 78 year old female well known to this clinic presenting with what she calls a loss of ground following her last round of physical therapy earlier in the year. Pt has a history of 5 separate CVAs, and feels her largest problem is her very slow gait speed, as well as weakness. Her slow gait speed is a long- standing issue which has previously been addressed at physical therapy, and she has shown some improvement, but typically does not perform a lot of HEP following discharge , and typically then regresses . 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 Prior Treatments and Tests Multiple rounds of physical therapy Treatment Goals Patient/Caregiver Goals Improve strengh and gait speed Prior Functional Status Baseline Function- ADL's Needs Assist Baseline Function- Mobility Needs Assist Baseline Function- Gait Very slow gait with bilateral walking sticks PT-OP-C Subjective Start: 03/13/19 11:58 Freq: Status: Active Protocol: Document 03/27/19 11:15 DCW (Rec: 03/27/19 11:55 DCW [id number]) OP-PT Subjective Patient Comments Patient Comments Pt reports she feels good today, has no new complaints or concerns PT-OP-D Balance Start: 03/13/19 11:58 Freq: Status: Active Protocol: Document 03/13/19 11:15 DCW (Rec: 03/13/19 12:27 DCW [id number]) OP-PT Balance Assessment Sitting Balance Static Sitting Balance Ability Good Dynamic Sitting Balance Ability Good Standing Balance Static Standing Balance Ability Fair Dynamic Standing Balance Ability Poor Tinetti Balance Assessment Sitting Balance Sitting Balance Leans or slides in chair Arising from Chair Ability to Arise Able, uses arms to help Attempts to Arise Able, requires >1 attempt Standing Balance Immediate Standing Balance Steady w/o support Standing Balance Steady, wide stance Nudged Response Steady Standing with Eyes Closed Steady Turning Step Pattern Turning 360 Degrees Discontinuous steps Stability Turning 360 Degrees Steady Sitting Down Sitting Down Uses arms or unsteady Gait and Step Initiation of Gait No hesitancy Right Foot Step Length Does pass stance foot Right Foot Step Height Does not clear floor Left Foot Step Length Does pass stance foot Left Foot Step Height Does not clear floor Step Description Step Symmetry Step length appears equal Step Continuity Stopping or discontinuity Gait Description Path Description Mild/moderate deviation Trunk Description Marked sway or uses aide Walking Stance Heels apart Scoring and Interpretation Tinetti Composite Score (points) 15 Interpretation of Scores High risk for falls(< 19) Tinetti Impairment Rating from Composite 40 to <60% Impaired (Score 12- Score 16) Vann Fall Scale Copyright Permission PT-OP-E Functional Tests Start: 03/13/19 11:58 Freq: Status: Active Protocol: Document 03/13/19 11:15 DCW (Rec: 03/13/19 12:27 DCW [id number]) Functional Tests 2 Minute Walk Test Distance 90' Device Used Bilateral walking sticks Comments .75 ft/sec Timed Up and Go (TUG) Score 45.07 Comments 3-trial average (50.38, 46.07, 38.75) TUG Impairment Rating 100% Impaired (Score 20) Tinetti Balance and Gait Assessment Balance Score 10 Gait Score 5 Composite Score 15 Balance Score Impairment Rating 20 to <40% Impaired (Score 10- 12) Gait Score Impairment Rating 40 to <60% Impaired (Score 5-7 ) Composite Score Impairment Rating 40 to <60% Impaired (Score 12- 16) PT-OP-M Strength Start: 03/13/19 11:58 Freq: Status: Active Protocol: Document 03/13/19 11:15 DCW (Rec: 03/13/19 12:27 DCW [id number]) Hip Strength Hip Manual Muscle Testing Right Flexion (L2) 4- Good- Abduction 4- Good- Adduction 4- Good- Left Flexion (L2) 4 Good Abduction 4- Good- Adduction 4- Good- Knee Strength Knee Manual Muscle Testing Right Flexion (S2) 4 Good Extension (L3) 4+ Good+ Left Flexion (S2) 4+ Good+ Extension (L3) 4+ Good+ Ankle/Foot Strength Ankle and Foot Manual Muscle Testing Right Dorsiflexion (L4) 4 Good Plantarflexion (S1) 4- Good- Left Dorsiflexion (L4) 4 Good Plantarflexion (S1) 4- Good- PT-OP-Q Treatments Start: 03/13/19 11:58 Freq: Status: Active Protocol: Document 03/27/19 11:15 DCW (Rec: 03/27/19 11:55 DCW [id number]) Cardio Equipment Recumbent Elliptical (BiodCrossTx) Duration (Minutes) 5 Resistance 2 Seat Position 7 Gym Equipment Shuttle Recovery Unilateral Squats Resistance 37# Shuttle Recovery Platform Stable Bilateral Squats Resistance 62# Shuttle Recovery Platform Stable Therapeutic Exercises Standing Exercises Hamstring Curls Standing Exercise Name HS Curls Side bilateral Resistance 5# Hip Abduction Standing Exercise Name Abduction Side bilateral Resistance 5# Marching Standing Exercise Name Marching Side bilateral Resistance 5# Other Exercises sit<->stand Other Exercise Name StS training with UE assist on rail Reps/Minutes x10 Gait Training Gait Activity Gait speed training Description 170' x2 Treatment Focus Increased gait speed, increased stride length Comments 170' time: 166.9 (1.01 ft/sec ); 138.4 (1.23 ft/sec) Neuro Re-Education Treatment Balance Activities Foam Stance Details Double leg stance on foam Surface Blue foam Comments EO/EC PT-OP-T Assessment and Plan Start: 03/13/19 11:58 Freq: Status: Active Protocol: Document 03/27/19 11:15 DCW (Rec: 03/27/19 11:55 DCW [id number]) Physical Therapy Assessment Impairments Impairments Activity Tolerance,Balance, Functional Activities, Functional Mobility,Gait, Posture,Strength,Transfers Goals Four Impairment Tinetti Manager Dental Goal (LTG) Pt to score at least 20/28 on Tinetti Balance Assessment LTG Duration 05/13/19 Three Impairment LE MMT Manager Dental Goal (LTG) PT LE MMT grossly to 4/5 in order to improve balance and activity tolerance LTG Duration 05/13/19 Two Impairment Gait speed of .75 ft/sec during two minute walk test Retirement Goal (LTG) Pt gait speed to 1.2 ft/sec (6 MWT distance of 144'). A gait speed of less than1.97 indicates a greater likelihood of further functional decline in older adults LTG Duration 05/13/19 One Impairment Pt does not have an appropriate home exercise program Short Term Goal (STG) Pt to be independent and compliant with an appropriate HEP STG Duration 04/13/19 Assessment Summary Assessment Pt fatigues very quickly, requires rest breaks frequently throughout therapy session. Physical Therapy Plan Frequency and Duration Frequency of Treatment 2x/Week Duration of Treatment 12 weeks Plan of Care Start Date 03/13/19 Plan of Care End Date 06/05/19 Therapeutic Interventions Therapeutic Interventions Aquatic Therapy,Balance Training,Home Exercise Program ,Neuromuscular Re-education, Patient/Caregiver Education, Self-Care/Home Management,Soft Tissue Mobilization, Therapeutic Activities, Therapeutic Exercises Next Visit Focus/Plan Next Note Type Treatment Note Next Visit Plan Strengthening, gait training, gait speed, balance training
--- NOTE | 2019-04-01 11:12 | PT.OTN ---
Current Diagnoses Cerebral infarction, unspecified (04/01/19) Muscle weakness (generalized) (04/01/19) Other abnormalities of gait and mobility (04/01/19) Physical Therapy Treatment Note PT-OP-A Visit Information Start: 03/13/19 11:58 Freq: Status: Active Protocol: Document 04/01/19 10:30 DCW (Rec: 04/01/19 11:11 DCW [id number]) Out-Patient Physical Therapy Visit Information Visit Information Visit Type Treatment Note Visit Start Time 10:30 Visit Stop Time 11:15 Total Visit Minutes 45 Visit Number 3 Number of INSTRUCTOR PSYCHIATRIC AIDE Visits 0 Evaluation Information Evaluation Date 03/13/19 PT-OP-B Current Condition Start: 03/13/19 11:58 Freq: Status: Active Protocol: Document 03/13/19 11:15 DCW (Rec: 03/13/19 12:27 DCW [id number]) Current Condition History of Current Condition Onset Date Multi-year history Current Complaints Fatigue, weakness, imbalance, decreased gait speed History of Current Condition Pt is a 78 year old female well known to this clinic presenting with what she calls a loss of ground following her last round of physical therapy earlier in the year. Pt has a history of 5 separate CVAs, and feels her largest problem is her very slow gait speed, as well as weakness. Her slow gait speed is a long- standing issue which has previously been addressed at physical therapy, and she has shown some improvement, but typically does not perform a lot of HEP following discharge , and typically then regresses . 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 Prior Treatments and Tests Multiple rounds of physical therapy Treatment Goals Patient/Caregiver Goals Improve strengh and gait speed Prior Functional Status Baseline Function- ADL's Needs Assist Baseline Function- Mobility Needs Assist Baseline Function- Gait Very slow gait with bilateral walking sticks PT-OP-C Subjective Start: 03/13/19 11:58 Freq: Status: Active Protocol: Document 04/01/19 10:30 DCW (Rec: 04/01/19 11:11 DCW [id number]) OP-PT Subjective Patient Comments Patient Comments Pt notes she had a good weekend, her son was up visiting from [place]. PT-OP-D Balance Start: 03/13/19 11:58 Freq: Status: Active Protocol: Document 03/13/19 11:15 DCW (Rec: 03/13/19 12:27 DCW [id number]) OP-PT Balance Assessment Sitting Balance Static Sitting Balance Ability Good Dynamic Sitting Balance Ability Good Standing Balance Static Standing Balance Ability Fair Dynamic Standing Balance Ability Poor Tinetti Balance Assessment Sitting Balance Sitting Balance Leans or slides in chair Arising from Chair Ability to Arise Able, uses arms to help Attempts to Arise Able, requires >1 attempt Standing Balance Immediate Standing Balance Steady w/o support Standing Balance Steady, wide stance Nudged Response Steady Standing with Eyes Closed Steady Turning Step Pattern Turning 360 Degrees Discontinuous steps Stability Turning 360 Degrees Steady Sitting Down Sitting Down Uses arms or unsteady Gait and Step Initiation of Gait No hesitancy Right Foot Step Length Does pass stance foot Right Foot Step Height Does not clear floor Left Foot Step Length Does pass stance foot Left Foot Step Height Does not clear floor Step Description Step Symmetry Step length appears equal Step Continuity Stopping or discontinuity Gait Description Path Description Mild/moderate deviation Trunk Description Marked sway or uses aide Walking Stance Heels apart Scoring and Interpretation Tinetti Composite Score (points) 15 Interpretation of Scores High risk for falls(< 19) Tinetti Impairment Rating from Composite 40 to <60% Impaired (Score 12- Score 16) Vann Fall Scale Copyright Permission PT-OP-E Functional Tests Start: 03/13/19 11:58 Freq: Status: Active Protocol: Document 03/13/19 11:15 DCW (Rec: 03/13/19 12:27 [facility] [id number]) Functional Tests 2 Minute Walk Test Distance 90' Device Used Bilateral walking sticks Comments .75 ft/sec Timed Up and Go (TUG) Score 45.07 Comments 3-trial average (50.38, 46.07, 38.75) TUG Impairment Rating 100% Impaired (Score 20) Tinetti Balance and Gait Assessment Balance Score 10 Gait Score 5 Composite Score 15 Balance Score Impairment Rating 20 to <40% Impaired (Score 10- 12) Gait Score Impairment Rating 40 to <60% Impaired (Score 5-7 ) Composite Score Impairment Rating 40 to <60% Impaired (Score 12- 16) PT-OP-M Strength Start: 03/13/19 11:58 Freq: Status: Active Protocol: Document 03/13/19 11:15 DCW (Rec: 03/13/19 12:27 DCW [id number]) Hip Strength Hip Manual Muscle Testing Right Flexion (L2) 4- Good- Abduction 4- Good- Adduction 4- Good- Left Flexion (L2) 4 Good Abduction 4- Good- Adduction 4- Good- Knee Strength Knee Manual Muscle Testing Right Flexion (S2) 4 Good Extension (L3) 4+ Good+ Left Flexion (S2) 4+ Good+ Extension (L3) 4+ Good+ Ankle/Foot Strength Ankle and Foot Manual Muscle Testing Right Dorsiflexion (L4) 4 Good Plantarflexion (S1) 4- Good- Left Dorsiflexion (L4) 4 Good Plantarflexion (S1) 4- Good- PT-OP-Q Treatments Start: 03/13/19 11:58 Freq: Status: Active Protocol: Document 04/01/19 10:30 DCW (Rec: 04/01/19 11:11 DCW [id number]) Cardio Equipment Recumbent Elliptical (BiodHoliday Propane) Duration (Minutes) 5 Resistance 2 Seat Position 7 Gym Equipment Shuttle Recovery Unilateral Squats Resistance 37# Shuttle Recovery Platform Stable Bilateral Squats Resistance 62# Shuttle Recovery Platform Stable Therapeutic Exercises Standing Exercises Heel raises Standing Exercise Name Heel raises @ rail Gait Training Gait Activity Stride length Description Step count over certain distance Distance/Duration 20' course Comments # of steps: 20->16->17->17->17 ->15 Gait speed training Description 170' x2 Treatment Focus Increased gait speed, increased stride length Comments 170' time: 151.3 (1.12 ft/sec ); 133.0 (1.28 ft/sec) PT-OP-T Assessment and Plan Start: 03/13/19 11:58 Freq: Status: Active Protocol: Document 04/01/19 10:30 DCW (Rec: 04/01/19 11:11 DCW [id number]) Physical Therapy Assessment Impairments Impairments Activity Tolerance,Balance, Functional Activities, Functional Mobility,Gait, Posture,Strength,Transfers Goals Four Impairment Tinetti Retirement Goal (LTG) Pt to score at least 20/28 on Tinetti Balance Assessment LTG Duration 05/13/19 Three Impairment LE MMT Spice Mixer Goal (LTG) PT LE MMT grossly to 4/5 in order to improve balance and activity tolerance LTG Duration 05/13/19 Two Impairment Gait speed of .75 ft/sec during two minute walk test Spice Mixer Goal (LTG) Pt gait speed to 1.2 ft/sec (6 MWT distance of 144'). A gait speed of less than1.97 indicates a greater likelihood of further functional decline in older adults LTG Duration 05/13/19 One Impairment Pt does not have an appropriate home exercise program Short Term Goal (STG) Pt to be independent and compliant with an appropriate HEP STG Duration 04/13/19 Assessment Summary Assessment Fewer rest breaks during session today. Pt able to increase speed and step length with constant verbal reminders however will immediately return to a very slow, short step without cues. Physical Therapy Plan Frequency and Duration Frequency of Treatment 2x/Week Duration of Treatment 12 weeks Plan of Care Start Date 03/13/19 Plan of Care End Date 06/05/19 Therapeutic Interventions Therapeutic Interventions Aquatic Therapy,Balance Training,Home Exercise Program ,Neuromuscular Re-education, Patient/Caregiver Education, Self-Care/Home Management,Soft Tissue Mobilization, Therapeutic Activities, Therapeutic Exercises Next Visit Focus/Plan Next Note Type Treatment Note Next Visit Plan Strengthening, gait training, gait speed, balance training
--- NOTE | 2019-04-03 11:12 | PT.OTN ---
Current Diagnoses Cerebral infarction, unspecified (04/03/19) Muscle weakness (generalized) (04/03/19) Other abnormalities of gait and mobility (04/03/19) Physical Therapy Treatment Note PT-OP-A Visit Information Start: 03/13/19 11:58 Freq: Status: Active Protocol: Document 04/03/19 10:30 DCW (Rec: 04/03/19 11:12 DCW [id number]) Out-Patient Physical Therapy Visit Information Visit Information Visit Type Treatment Note Visit Start Time 10:30 Visit Stop Time 11:15 Total Visit Minutes 45 Visit Number 4 Number of DIRECTOR OF WOMEN'S SERVICES Visits 0 Evaluation Information Evaluation Date 03/13/19 PT-OP-B Current Condition Start: 03/13/19 11:58 Freq: Status: Active Protocol: Document 03/13/19 11:15 DCW (Rec: 03/13/19 12:27 DCW [id number]) Current Condition History of Current Condition Onset Date Multi-year history Current Complaints Fatigue, weakness, imbalance, decreased gait speed History of Current Condition Pt is a 78 year old female well known to this clinic presenting with what she calls a loss of ground following her last round of physical therapy earlier in the year. Pt has a history of 5 separate CVAs, and feels her largest problem is her very slow gait speed, as well as weakness. Her slow gait speed is a long- standing issue which has previously been addressed at physical therapy, and she has shown some improvement, but typically does not perform a lot of HEP following discharge , and typically then regresses . Pt does note she has been working with a sports medicine trainer in the local pool, and has begun attending gentle yoga classes, as well as a dancing class for people with disabilities. Prior Treatments and Tests Multiple rounds of physical therapy Treatment Goals Patient/Caregiver Goals Improve strengh and gait speed Prior Functional Status Baseline Function- ADL's Needs Assist Baseline Function- Mobility Needs Assist Baseline Function- Gait Very slow gait with bilateral walking sticks PT-OP-C Subjective Start: 03/13/19 11:58 Freq: Status: Active Protocol: Document 04/03/19 10:30 DCW (Rec: 04/03/19 11:12 DCW [id number]) OP-PT Subjective Patient Comments Patient Comments Pt reports that she has been practicing walking with larger steps at [facility]. Pt also notes that her back has been hurting today, but she doesn't know why. PT-OP-D Balance Start: 03/13/19 11:58 Freq: Status: Active Protocol: Document 03/13/19 11:15 DCW (Rec: 03/13/19 12:27 [facility] [id number]) OP-PT Balance Assessment Sitting Balance Static Sitting Balance Ability Good Dynamic Sitting Balance Ability Good Standing Balance Static Standing Balance Ability Fair Dynamic Standing Balance Ability Poor Tinetti Balance Assessment Sitting Balance Sitting Balance Leans or slides in chair Arising from Chair Ability to Arise Able, uses arms to help Attempts to Arise Able, requires >1 attempt Standing Balance Immediate Standing Balance Steady w/o support Standing Balance Steady, wide stance Nudged Response Steady Standing with Eyes Closed Steady Turning Step Pattern Turning 360 Degrees Discontinuous steps Stability Turning 360 Degrees Steady Sitting Down Sitting Down Uses arms or unsteady Gait and Step Initiation of Gait No hesitancy Right Foot Step Length Does pass stance foot Right Foot Step Height Does not clear floor Left Foot Step Length Does pass stance foot Left Foot Step Height Does not clear floor Step Description Step Symmetry Step length appears equal Step Continuity Stopping or discontinuity Gait Description Path Description Mild/moderate deviation Trunk Description Marked sway or uses aide Walking Stance Heels apart Scoring and Interpretation Tinetti Composite Score (points) 15 Interpretation of Scores High risk for falls(< 19) Tinetti Impairment Rating from Composite 40 to <60% Impaired (Score 12- Score 16) Vann Fall Scale Copyright Permission PT-OP-E Functional Tests Start: 03/13/19 11:58 Freq: Status: Active Protocol: Document 03/13/19 11:15 DCW (Rec: 03/13/19 12:27 [facility] [id number]) Functional Tests 2 Minute Walk Test Distance 90' Device Used Bilateral walking sticks Comments .75 ft/sec Timed Up and Go (TUG) Score 45.07 Comments 3-trial average (50.38, 46.07, 38.75) TUG Impairment Rating 100% Impaired (Score 20) Tinetti Balance and Gait Assessment Balance Score 10 Gait Score 5 Composite Score 15 Balance Score Impairment Rating 20 to <40% Impaired (Score 10- 12) Gait Score Impairment Rating 40 to <60% Impaired (Score 5-7 ) Composite Score Impairment Rating 40 to <60% Impaired (Score 12- 16) PT-OP-M Strength Start: 03/13/19 11:58 Freq: Status: Active Protocol: Document 03/13/19 11:15 DCW (Rec: 03/13/19 12:27 DCW [id number]) Hip Strength Hip Manual Muscle Testing Right Flexion (L2) 4- Good- Abduction 4- Good- Adduction 4- Good- Left Flexion (L2) 4 Good Abduction 4- Good- Adduction 4- Good- Knee Strength Knee Manual Muscle Testing Right Flexion (S2) 4 Good Extension (L3) 4+ Good+ Left Flexion (S2) 4+ Good+ Extension (L3) 4+ Good+ Ankle/Foot Strength Ankle and Foot Manual Muscle Testing Right Dorsiflexion (L4) 4 Good Plantarflexion (S1) 4- Good- Left Dorsiflexion (L4) 4 Good Plantarflexion (S1) 4- Good- PT-OP-Q Treatments Start: 03/13/19 11:58 Freq: Status: Active Protocol: Document 04/03/19 10:30 DCW (Rec: 04/03/19 11:12 DCW [id number]) Cardio Equipment Recumbent Elliptical (BiodFlightCaster) Duration (Minutes) 5 Resistance 2 Seat Position 7 Gym Equipment Shuttle Recovery Unilateral Squats Resistance 37# Shuttle Recovery Platform Stable Bilateral Squats Resistance 50# Shuttle Recovery Platform Stable Gait Training Gait Activity Stride length Description Step count over specific distance Distance/Duration 20' course Comments # of steps: 18->16->16->14.5 Gait speed training Description 170' x2 Treatment Focus Increased gait speed, increased stride length Comments 170' time: 155.8 (1.09 ft/sec ); 148.4 (1.14 ft/sec) PT-OP-T Assessment and Plan Start: 03/13/19 11:58 Freq: Status: Active Protocol: Document 04/03/19 10:30 DCW (Rec: 04/03/19 11:12 DCW [id number]) Physical Therapy Assessment Impairments Impairments Activity Tolerance,Balance, Functional Activities, Functional Mobility,Gait, Posture,Strength,Transfers Goals Four Impairment Tinetti It Security Project Manager Goal (LTG) Pt to score at least 20/28 on Tinetti Balance Assessment LTG Duration 05/13/19 Three Impairment LE MMT Custodial Goal (LTG) PT LE MMT grossly to 4/5 in order to improve balance and activity tolerance LTG Duration 05/13/19 Two Impairment Gait speed of .75 ft/sec during two minute walk test It Security Project Manager Goal (LTG) Pt gait speed to 1.2 ft/sec (6 MWT distance of 144'). A gait speed of less than1.97 indicates a greater likelihood of further functional decline in older adults LTG Duration 05/13/19 One Impairment Pt does not have an appropriate home exercise program Short Term Goal (STG) Pt to be independent and compliant with an appropriate HEP STG Duration 04/13/19 Assessment Summary Assessment Pt very fatigued again today, required multiple rest breaks. Admitted that she had not eaten prior to coming to her appointment, and she decided that was the cause of her low energy. Physical Therapy Plan Frequency and Duration Frequency of Treatment 2x/Week Duration of Treatment 12 weeks Plan of Care Start Date 03/13/19 Plan of Care End Date 06/05/19 Therapeutic Interventions Therapeutic Interventions Aquatic Therapy,Balance Training,Home Exercise Program ,Neuromuscular Re-education, Patient/Caregiver Education, Self-Care/Home Management,Soft Tissue Mobilization, Therapeutic Activities, Therapeutic Exercises Next Visit Focus/Plan Next Note Type Treatment Note Next Visit Plan Strengthening, gait training, gait speed, balance training
--- NOTE | 2019-04-10 12:03 | PT.OTN ---
Current Diagnoses Cerebral infarction, unspecified (04/10/19) Muscle weakness (generalized) (04/10/19) Other abnormalities of gait and mobility (04/10/19) Physical Therapy Treatment Note PT-OP-A Visit Information Start: 03/13/19 11:58 Freq: Status: Active Protocol: Document 04/10/19 10:40 DCW (Rec: 04/10/19 12:03 DCW [id number]) Out-Patient Physical Therapy Visit Information Visit Information Visit Type Treatment Note Visit Note Pt arrived 10 min late Visit Start Time 10:40 Visit Stop Time 11:15 Total Visit Minutes 35 Visit Number 5 Number of TRANSFER WORKER Visits 0 Evaluation Information Evaluation Date 03/13/19 PT-OP-B Current Condition Start: 03/13/19 11:58 Freq: Status: Active Protocol: Document 03/13/19 11:15 DCW (Rec: 03/13/19 12:27 DCW [id number]) Current Condition History of Current Condition Onset Date Multi-year history Current Complaints Fatigue, weakness, imbalance, decreased gait speed History of Current Condition Pt is a 78 year old female well known to this clinic presenting with what she calls a loss of ground following her last round of physical therapy earlier in the year. Pt has a history of 5 separate CVAs, and feels her largest problem is her very slow gait speed, as well as weakness. Her slow gait speed is a long- standing issue which has previously been addressed at physical therapy, and she has shown some improvement, but typically does not perform a lot of HEP following discharge , and typically then regresses . 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 Prior Treatments and Tests Multiple rounds of physical therapy Treatment Goals Patient/Caregiver Goals Improve strengh and gait speed Prior Functional Status Baseline Function- ADL's Needs Assist Baseline Function- Mobility Needs Assist Baseline Function- Gait Very slow gait with bilateral walking sticks PT-OP-C Subjective Start: 03/13/19 11:58 Freq: Status: Active Protocol: Document 04/10/19 10:40 DCW (Rec: 04/10/19 12:03 DCW [id number]) OP-PT Subjective Patient Comments Patient Comments Pt reports she fell over the weekend, and has a big hematoma on my leg. Notes she got it checked out on Monday, but she's just felt really unsettled since then. PT-OP-D Balance Start: 03/13/19 11:58 Freq: Status: Active Protocol: Document 03/13/19 11:15 DCW (Rec: 03/13/19 12:27 DCW [id number]) OP-PT Balance Assessment Sitting Balance Static Sitting Balance Ability Good Dynamic Sitting Balance Ability Good Standing Balance Static Standing Balance Ability Fair Dynamic Standing Balance Ability Poor Tinetti Balance Assessment Sitting Balance Sitting Balance Leans or slides in chair Arising from Chair Ability to Arise Able, uses arms to help Attempts to Arise Able, requires >1 attempt Standing Balance Immediate Standing Balance Steady w/o support Standing Balance Steady, wide stance Nudged Response Steady Standing with Eyes Closed Steady Turning Step Pattern Turning 360 Degrees Discontinuous steps Stability Turning 360 Degrees Steady Sitting Down Sitting Down Uses arms or unsteady Gait and Step Initiation of Gait No hesitancy Right Foot Step Length Does pass stance foot Right Foot Step Height Does not clear floor Left Foot Step Length Does pass stance foot Left Foot Step Height Does not clear floor Step Description Step Symmetry Step length appears equal Step Continuity Stopping or discontinuity Gait Description Path Description Mild/moderate deviation Trunk Description Marked sway or uses aide Walking Stance Heels apart Scoring and Interpretation Tinetti Composite Score (points) 15 Interpretation of Scores High risk for falls(< 19) Tinetti Impairment Rating from Composite 40 to <60% Impaired (Score 12- Score 16) Vann Fall Scale Copyright Permission PT-OP-E Functional Tests Start: 03/13/19 11:58 Freq: Status: Active Protocol: Document 03/13/19 11:15 DCW (Rec: 03/13/19 12:27 DCW [id number]) Functional Tests 2 Minute Walk Test Distance 90' Device Used Bilateral walking sticks Comments .75 ft/sec Timed Up and Go (TUG) Score 45.07 Comments 3-trial average (50.38, 46.07, 38.75) TUG Impairment Rating 100% Impaired (Score 20) Tinetti Balance and Gait Assessment Balance Score 10 Gait Score 5 Composite Score 15 Balance Score Impairment Rating 20 to <40% Impaired (Score 10- 12) Gait Score Impairment Rating 40 to <60% Impaired (Score 5-7 ) Composite Score Impairment Rating 40 to <60% Impaired (Score 12- 16) PT-OP-M Strength Start: 03/13/19 11:58 Freq: Status: Active Protocol: Document 03/13/19 11:15 DCW (Rec: 03/13/19 12:27 DCW [id number]) Hip Strength Hip Manual Muscle Testing Right Flexion (L2) 4- Good- Abduction 4- Good- Adduction 4- Good- Left Flexion (L2) 4 Good Abduction 4- Good- Adduction 4- Good- Knee Strength Knee Manual Muscle Testing Right Flexion (S2) 4 Good Extension (L3) 4+ Good+ Left Flexion (S2) 4+ Good+ Extension (L3) 4+ Good+ Ankle/Foot Strength Ankle and Foot Manual Muscle Testing Right Dorsiflexion (L4) 4 Good Plantarflexion (S1) 4- Good- Left Dorsiflexion (L4) 4 Good Plantarflexion (S1) 4- Good- PT-OP-Q Treatments Start: 03/13/19 11:58 Freq: Status: Active Protocol: Document 04/10/19 10:40 DCW (Rec: 04/10/19 12:03 DCW [id number]) Cardio Equipment Recumbent Elliptical (Biodex) Duration (Minutes) 5 Resistance 2 Seat Position 7 Gym Equipment Shuttle Recovery Unilateral Squats Resistance 37# Shuttle Recovery Platform Stable Bilateral Squats Resistance 50# Shuttle Recovery Platform Stable Gait Training Gait Activity Stride length Description Step count over specific distance Distance/Duration 20' course Comments # of steps: 19->15->15->17->15 ->15->15->15\ PT-OP-T Assessment and Plan Start: 03/13/19 11:58 Freq: Status: Active Protocol: Document 04/10/19 10:40 DCW (Rec: 04/10/19 12:03 DCW [id number]) Physical Therapy Assessment Impairments Impairments Activity Tolerance,Balance, Functional Activities, Functional Mobility,Gait, Posture,Strength,Transfers Goals Four Impairment Tinetti Long-Term Goal (LTG) Pt to score at least 20/28 on Tinetti Balance Assessment LTG Duration 05/13/19 Three Impairment LE MMT Long-Term Goal (LTG) PT LE MMT grossly to 4/5 in order to improve balance and activity tolerance LTG Duration 05/13/19 Two Impairment Gait speed of .75 ft/sec during two minute walk test Long-Term Goal (LTG) Pt gait speed to 1.2 ft/sec (6 MWT distance of 144'). A gait speed of less than1.97 indicates a greater likelihood of further functional decline in older adults LTG Duration 05/13/19 One Impairment Pt does not have an appropriate home exercise program Short Term Goal (STG) Pt to be independent and compliant with an appropriate HEP STG Duration 04/13/19 Assessment Summary Assessment Pt reports she can't walk any faster now following her fall. Unable to report if it is due to pain or an increased fear of falling and anxiety. Between pt's late arrival today, and her slower-than- normal ambulation, minimal skilled intervention was able to be performed today. Physical Therapy Plan Frequency and Duration Frequency of Treatment 2x/Week Duration of Treatment 12 weeks Plan of Care Start Date 03/13/19 Plan of Care End Date 06/05/19 Therapeutic Interventions Therapeutic Interventions Aquatic Therapy,Balance Training,Home Exercise Program ,Neuromuscular Re-education, Patient/Caregiver Education, Self-Care/Home Management,Soft Tissue Mobilization, Therapeutic Activities, Therapeutic Exercises Next Visit Focus/Plan Next Note Type Treatment Note Next Visit Plan Strengthening, gait training, gait speed, balance training
--- NOTE | 2019-04-17 12:50 | PT.OTN ---
Current Diagnoses Cerebral infarction, unspecified (04/17/19) Muscle weakness (generalized) (04/17/19) Other abnormalities of gait and mobility (04/17/19) Physical Therapy Treatment Note PT-OP-A Visit Information Start: 03/13/19 11:58 Freq: Status: Active Protocol: Document 04/17/19 12:00 DCW (Rec: 04/17/19 12:50 DCW [id number]) Out-Patient Physical Therapy Visit Information Visit Information Visit Type Treatment Note Visit Start Time 12:00 Visit Stop Time 12:45 Total Visit Minutes 45 Visit Number 6 Number of DRIVER GUARD Visits 0 Evaluation Information Evaluation Date 03/13/19 PT-OP-B Current Condition Start: 03/13/19 11:58 Freq: Status: Active Protocol: Document 03/13/19 11:15 DCW (Rec: 03/13/19 12:27 DCW [id number]) Current Condition History of Current Condition Onset Date Multi-year history Current Complaints Fatigue, weakness, imbalance, decreased gait speed History of Current Condition Pt is a 78 year old female well known to this clinic presenting with what she calls a loss of ground following her last round of physical therapy earlier in the year. Pt has a history of 5 separate CVAs, and feels her largest problem is her very slow gait speed, as well as weakness. Her slow gait speed is a long- standing issue which has previously been addressed at physical therapy, and she has shown some improvement, but typically does not perform a lot of HEP following discharge , and typically then regresses . 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 Prior Treatments and Tests Multiple rounds of physical therapy Treatment Goals Patient/Caregiver Goals Improve strengh and gait speed Prior Functional Status Baseline Function- ADL's Needs Assist Baseline Function- Mobility Needs Assist Baseline Function- Gait Very slow gait with bilateral walking sticks PT-OP-C Subjective Start: 03/13/19 11:58 Freq: Status: Active Protocol: Document 04/17/19 12:00 DCW (Rec: 04/17/19 12:50 DCW [id number]) OP-PT Subjective Patient Comments Patient Comments Pt reports that she is feeling much better than she was last week. PT-OP-D Balance Start: 03/13/19 11:58 Freq: Status: Active Protocol: Document 03/13/19 11:15 DCW (Rec: 03/13/19 12:27 DCW [id number]) OP-PT Balance Assessment Sitting Balance Static Sitting Balance Ability Good Dynamic Sitting Balance Ability Good Standing Balance Static Standing Balance Ability Fair Dynamic Standing Balance Ability Poor Tinetti Balance Assessment Sitting Balance Sitting Balance Leans or slides in chair Arising from Chair Ability to Arise Able, uses arms to help Attempts to Arise Able, requires >1 attempt Standing Balance Immediate Standing Balance Steady w/o support Standing Balance Steady, wide stance Nudged Response Steady Standing with Eyes Closed Steady Turning Step Pattern Turning 360 Degrees Discontinuous steps Stability Turning 360 Degrees Steady Sitting Down Sitting Down Uses arms or unsteady Gait and Step Initiation of Gait No hesitancy Right Foot Step Length Does pass stance foot Right Foot Step Height Does not clear floor Left Foot Step Length Does pass stance foot Left Foot Step Height Does not clear floor Step Description Step Symmetry Step length appears equal Step Continuity Stopping or discontinuity Gait Description Path Description Mild/moderate deviation Trunk Description Marked sway or uses aide Walking Stance Heels apart Scoring and Interpretation Tinetti Composite Score (points) 15 Interpretation of Scores High risk for falls(< 19) Tinetti Impairment Rating from Composite 40 to <60% Impaired (Score 12- Score 16) Vann Fall Scale Copyright Permission PT-OP-E Functional Tests Start: 03/13/19 11:58 Freq: Status: Active Protocol: Document 03/13/19 11:15 DCW (Rec: 03/13/19 12:27 DCW [id number]) Functional Tests 2 Minute Walk Test Distance 90' Device Used Bilateral walking sticks Comments .75 ft/sec Timed Up and Go (TUG) Score 45.07 Comments 3-trial average (50.38, 46.07, 38.75) TUG Impairment Rating 100% Impaired (Score 20) Tinetti Balance and Gait Assessment Balance Score 10 Gait Score 5 Composite Score 15 Balance Score Impairment Rating 20 to <40% Impaired (Score 10- 12) Gait Score Impairment Rating 40 to <60% Impaired (Score 5-7 ) Composite Score Impairment Rating 40 to <60% Impaired (Score 12- 16) PT-OP-M Strength Start: 03/13/19 11:58 Freq: Status: Active Protocol: Document 03/13/19 11:15 DCW (Rec: 03/13/19 12:27 DCW [id number]) Hip Strength Hip Manual Muscle Testing Right Flexion (L2) 4- Good- Abduction 4- Good- Adduction 4- Good- Left Flexion (L2) 4 Good Abduction 4- Good- Adduction 4- Good- Knee Strength Knee Manual Muscle Testing Right Flexion (S2) 4 Good Extension (L3) 4+ Good+ Left Flexion (S2) 4+ Good+ Extension (L3) 4+ Good+ Ankle/Foot Strength Ankle and Foot Manual Muscle Testing Right Dorsiflexion (L4) 4 Good Plantarflexion (S1) 4- Good- Left Dorsiflexion (L4) 4 Good Plantarflexion (S1) 4- Good- PT-OP-Q Treatments Start: 03/13/19 11:58 Freq: Status: Active Protocol: Document 04/17/19 12:00 DCW (Rec: 04/17/19 12:50 DCW [id number]) Cardio Equipment Recumbent Elliptical ([employer]) Duration (Minutes) 5 Resistance 2 Seat Position 7 Gym Equipment Shuttle Recovery Unilateral Squats Resistance 37# Shuttle Recovery Platform Stable Bilateral Squats Resistance 50# Shuttle Recovery Platform Stable Therapeutic Exercises Standing Exercises Hamstring Curls Standing Exercise Name HS Curls Side bilateral Resistance 5# Marching Standing Exercise Name Marching Side bilateral Resistance 5# Other Exercises sit<->stand Other Exercise Name StS training with UE assist on rail Reps/Minutes x5 Gait Training Gait Activity Stride length Description Step count over specific distance Distance/Duration 20' course Comments # of steps: 15->14->14->13->16 ->15 Gait speed training Description 170' x2 Treatment Focus Increased gait speed, increased stride length Comments 170' time: 188.8 (0.9 ft/sec) ; 132.6 (1.28 ft/sec) PT-OP-T Assessment and Plan Start: 03/13/19 11:58 Freq: Status: Active Protocol: Document 04/17/19 12:00 DCW (Rec: 04/17/19 12:50 DCW [id number]) Physical Therapy Assessment Impairments Impairments Activity Tolerance,Balance, Functional Activities, Functional Mobility,Gait, Posture,Strength,Transfers Goals Four Impairment Tinetti Jail Goal (LTG) Pt to score at least 20/28 on Tinetti Balance Assessment LTG Duration 05/13/19 Three Impairment LE MMT Heel Painter Goal (LTG) PT LE MMT grossly to 4/5 in order to improve balance and activity tolerance LTG Duration 05/13/19 Two Impairment Gait speed of .75 ft/sec during two minute walk test Jail Goal (LTG) Pt gait speed to 1.2 ft/sec (6 MWT distance of 144'). A gait speed of less than1.97 indicates a greater likelihood of further functional decline in older adults LTG Duration 05/13/19 One Impairment Pt does not have an appropriate home exercise program Short Term Goal (STG) Pt to be independent and compliant with an appropriate HEP STG Duration 04/13/19 Assessment Summary Assessment Pt started today poorly, with her worst time over the 170' course, but followed that up with her best time over the 170' course, improving from 3' 08 to 2'12. Pt was also able to ambulate over a 20' course taking 13 steps, showing improved stride length compared to her previous 17-19 steps, although without verbal cues, pt fall back into her normal pattern of very short stride length. Physical Therapy Plan Frequency and Duration Frequency of Treatment 2x/Week Duration of Treatment 12 weeks Plan of Care Start Date 03/13/19 Plan of Care End Date 06/05/19 Therapeutic Interventions Therapeutic Interventions Aquatic Therapy,Balance Training,Home Exercise Program ,Neuromuscular Re-education, Patient/Caregiver Education, Self-Care/Home Management,Soft Tissue Mobilization, Therapeutic Activities, Therapeutic Exercises Next Visit Focus/Plan Next Note Type Treatment Note Next Visit Plan Strengthening, gait training, gait speed, balance training
--- NOTE | 2019-04-24 15:14 | PT.OTN ---
Current Diagnoses Cerebral infarction, unspecified (04/24/19) Muscle weakness (generalized) (04/24/19) Other abnormalities of gait and mobility (04/24/19) Physical Therapy Treatment Note PT-OP-A Visit Information Start: 03/13/19 11:58 Freq: Status: Active Protocol: Document 04/24/19 14:30 DCW (Rec: 04/24/19 15:14 DCW [id number]) Out-Patient Physical Therapy Visit Information Visit Information Visit Type Treatment Note Visit Start Time 14:30 Visit Stop Time 15:15 Total Visit Minutes 45 Visit Number 7 Number of CUFF MATCHER Visits 0 Evaluation Information Evaluation Date 03/13/19 PT-OP-B Current Condition Start: 03/13/19 11:58 Freq: Status: Active Protocol: Document 03/13/19 11:15 DCW (Rec: 03/13/19 12:27 DCW [id number]) Current Condition History of Current Condition Onset Date Multi-year history Current Complaints Fatigue, weakness, imbalance, decreased gait speed History of Current Condition Pt is a 78 year old female well known to this clinic presenting with what she calls a loss of ground following her last round of physical therapy earlier in the year. Pt has a history of 5 separate CVAs, and feels her largest problem is her very slow gait speed, as well as weakness. Her slow gait speed is a long- standing issue which has previously been addressed at physical therapy, and she has shown some improvement, but typically does not perform a lot of HEP following discharge , and typically then regresses . 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 Prior Treatments and Tests Multiple rounds of physical therapy Treatment Goals Patient/Caregiver Goals Improve strengh and gait speed Prior Functional Status Baseline Function- ADL's Needs Assist Baseline Function- Mobility Needs Assist Baseline Function- Gait Very slow gait with bilateral walking sticks PT-OP-C Subjective Start: 03/13/19 11:58 Freq: Status: Active Protocol: Document 04/24/19 14:30 DCW (Rec: 04/24/19 15:14 DCW [id number]) OP-PT Subjective Patient Comments Patient Comments Pt reports she is feeling really good today. PT-OP-D Balance Start: 03/13/19 11:58 Freq: Status: Active Protocol: Document 03/13/19 11:15 DCW (Rec: 03/13/19 12:27 DCW [id number]) OP-PT Balance Assessment Sitting Balance Static Sitting Balance Ability Good Dynamic Sitting Balance Ability Good Standing Balance Static Standing Balance Ability Fair Dynamic Standing Balance Ability Poor Tinetti Balance Assessment Sitting Balance Sitting Balance Leans or slides in chair Arising from Chair Ability to Arise Able, uses arms to help Attempts to Arise Able, requires >1 attempt Standing Balance Immediate Standing Balance Steady w/o support Standing Balance Steady, wide stance Nudged Response Steady Standing with Eyes Closed Steady Turning Step Pattern Turning 360 Degrees Discontinuous steps Stability Turning 360 Degrees Steady Sitting Down Sitting Down Uses arms or unsteady Gait and Step Initiation of Gait No hesitancy Right Foot Step Length Does pass stance foot Right Foot Step Height Does not clear floor Left Foot Step Length Does pass stance foot Left Foot Step Height Does not clear floor Step Description Step Symmetry Step length appears equal Step Continuity Stopping or discontinuity Gait Description Path Description Mild/moderate deviation Trunk Description Marked sway or uses aide Walking Stance Heels apart Scoring and Interpretation Tinetti Composite Score (points) 15 Interpretation of Scores High risk for falls(< 19) Tinetti Impairment Rating from Composite 40 to <60% Impaired (Score 12- Score 16) Vann Fall Scale Copyright Permission PT-OP-E Functional Tests Start: 03/13/19 11:58 Freq: Status: Active Protocol: Document 03/13/19 11:15 DCW (Rec: 03/13/19 12:27 [facility] [id number]) Functional Tests 2 Minute Walk Test Distance 90' Device Used Bilateral walking sticks Comments .75 ft/sec Timed Up and Go (TUG) Score 45.07 Comments 3-trial average (50.38, 46.07, 38.75) TUG Impairment Rating 100% Impaired (Score 20) Tinetti Balance and Gait Assessment Balance Score 10 Gait Score 5 Composite Score 15 Balance Score Impairment Rating 20 to <40% Impaired (Score 10- 12) Gait Score Impairment Rating 40 to <60% Impaired (Score 5-7 ) Composite Score Impairment Rating 40 to <60% Impaired (Score 12- 16) PT-OP-M Strength Start: 03/13/19 11:58 Freq: Status: Active Protocol: Document 03/13/19 11:15 DCW (Rec: 03/13/19 12:27 DCW [id number]) Hip Strength Hip Manual Muscle Testing Right Flexion (L2) 4- Good- Abduction 4- Good- Adduction 4- Good- Left Flexion (L2) 4 Good Abduction 4- Good- Adduction 4- Good- Knee Strength Knee Manual Muscle Testing Right Flexion (S2) 4 Good Extension (L3) 4+ Good+ Left Flexion (S2) 4+ Good+ Extension (L3) 4+ Good+ Ankle/Foot Strength Ankle and Foot Manual Muscle Testing Right Dorsiflexion (L4) 4 Good Plantarflexion (S1) 4- Good- Left Dorsiflexion (L4) 4 Good Plantarflexion (S1) 4- Good- PT-OP-Q Treatments Start: 03/13/19 11:58 Freq: Status: Active Protocol: Document 04/24/19 14:30 DCW (Rec: 04/24/19 15:14 DCW [id number]) Cardio Equipment Recumbent Elliptical ([employer]) Duration (Minutes) 5 Resistance 3 Seat Position 7 Gym Equipment Shuttle Recovery Unilateral Squats Resistance 37# Shuttle Recovery Platform Stable Bilateral Squats Resistance 50# Shuttle Recovery Platform Stable Therapeutic Exercises Other Exercises sit<->stand Other Exercise Name StS training with UE assist on chair Reps/Minutes x8 Gait Training Gait Activity Stride length Description Step count over specific distance Distance/Duration 20' course Comments # of steps: 14->14->13->13->13 ->13 Gait speed training Description 170' x2 Treatment Focus Increased gait speed, increased stride length Comments 170' time: 114.2 (1.49 ft/sec ); 110.9 (1.53 ft/sec) PT-OP-T Assessment and Plan Start: 03/13/19 11:58 Freq: Status: Active Protocol: Document 04/24/19 14:30 DCW (Rec: 04/24/19 15:14 DCW [id number]) Physical Therapy Assessment Impairments Impairments Activity Tolerance,Balance, Functional Activities, Functional Mobility,Gait, Posture,Strength,Transfers Goals Four Impairment Tinetti Ceramic Saw Tender Goal (LTG) Pt to score at least 20/28 on Tinetti Balance Assessment LTG Duration 05/13/19 Three Impairment LE MMT Ceramic Saw Tender Goal (LTG) PT LE MMT grossly to 4/5 in order to improve balance and activity tolerance LTG Duration 05/13/19 Two Impairment Gait speed of .75 ft/sec during two minute walk test Mcc Goal (LTG) Pt gait speed to 1.2 ft/sec (6 MWT distance of 144'). A gait speed of less than 1.97 indicates a greater likelihood of further functional decline in older adults LTG Duration 05/13/19 One Impairment Pt does not have an appropriate home exercise program Short Term Goal (STG) Pt to be independent and compliant with an appropriate HEP STG Duration 04/13/19 Assessment Summary Assessment Pt had her two fastest 170' lap times today, with an average gait speed of 1.51 feet/second. Pt able to perform all activities today, however was clearly fatigued by the end of her session. Physical Therapy Plan Frequency and Duration Frequency of Treatment 2x/Week Duration of Treatment 12 weeks Plan of Care Start Date 03/13/19 Plan of Care End Date 06/05/19 Therapeutic Interventions Therapeutic Interventions Aquatic Therapy,Balance Training,Home Exercise Program ,Neuromuscular Re-education, Patient/Caregiver Education, Self-Care/Home Management,Soft Tissue Mobilization, Therapeutic Activities, Therapeutic Exercises Next Visit Focus/Plan Next Note Type Treatment Note Next Visit Plan Strengthening, gait training, gait speed, balance training
--- NOTE | 2019-05-02 11:14 | PT.OTN ---
Current Diagnoses Cerebral infarction, unspecified (05/02/19) Muscle weakness (generalized) (05/02/19) Other abnormalities of gait and mobility (05/02/19) Physical Therapy Treatment Note PT-OP-A Visit Information Start: 03/13/19 11:58 Freq: Status: Active Protocol: Document 05/02/19 10:30 DCW (Rec: 05/02/19 11:14 DCW [id number]) Out-Patient Physical Therapy Visit Information Visit Information Visit Type Treatment Note Visit Start Time 10:30 Visit Stop Time 11:15 Total Visit Minutes 45 Visit Number 8 Number of SUMMER CAMP COUNSELOR Visits 0 Evaluation Information Evaluation Date 03/13/19 PT-OP-B Current Condition Start: 03/13/19 11:58 Freq: Status: Active Protocol: Document 03/13/19 11:15 DCW (Rec: 03/13/19 12:27 DCW [id number]) Current Condition History of Current Condition Onset Date Multi-year history Current Complaints Fatigue, weakness, imbalance, decreased gait speed History of Current Condition Pt is a 78 year old female well known to this clinic presenting with what she calls a loss of ground following her last round of physical therapy earlier in the year. Pt has a history of 5 separate CVAs, and feels her largest problem is her very slow gait speed, as well as weakness. Her slow gait speed is a long- standing issue which has previously been addressed at physical therapy, and she has shown some improvement, but typically does not perform a lot of HEP following discharge , and typically then regresses . 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 Prior Treatments and Tests Multiple rounds of physical therapy Treatment Goals Patient/Caregiver Goals Improve strengh and gait speed Prior Functional Status Baseline Function- ADL's Needs Assist Baseline Function- Mobility Needs Assist Baseline Function- Gait Very slow gait with bilateral walking sticks PT-OP-C Subjective Start: 03/13/19 11:58 Freq: Status: Active Protocol: Document 05/02/19 10:30 DCW (Rec: 05/02/19 11:14 DCW [id number]) OP-PT Subjective Patient Comments Patient Comments I'm not feeling very great today. We were up in [place] over the weekend, and doing very vigorous activity, and I' m just still very tired. PT-OP-D Balance Start: 03/13/19 11:58 Freq: Status: Active Protocol: Document 03/13/19 11:15 DCW (Rec: 03/13/19 12:27 [facility] [id number]) OP-PT Balance Assessment Sitting Balance Static Sitting Balance Ability Good Dynamic Sitting Balance Ability Good Standing Balance Static Standing Balance Ability Fair Dynamic Standing Balance Ability Poor Tinetti Balance Assessment Sitting Balance Sitting Balance Leans or slides in chair Arising from Chair Ability to Arise Able, uses arms to help Attempts to Arise Able, requires >1 attempt Standing Balance Immediate Standing Balance Steady w/o support Standing Balance Steady, wide stance Nudged Response Steady Standing with Eyes Closed Steady Turning Step Pattern Turning 360 Degrees Discontinuous steps Stability Turning 360 Degrees Steady Sitting Down Sitting Down Uses arms or unsteady Gait and Step Initiation of Gait No hesitancy Right Foot Step Length Does pass stance foot Right Foot Step Height Does not clear floor Left Foot Step Length Does pass stance foot Left Foot Step Height Does not clear floor Step Description Step Symmetry Step length appears equal Step Continuity Stopping or discontinuity Gait Description Path Description Mild/moderate deviation Trunk Description Marked sway or uses aide Walking Stance Heels apart Scoring and Interpretation Tinetti Composite Score (points) 15 Interpretation of Scores High risk for falls(< 19) Tinetti Impairment Rating from Composite 40 to <60% Impaired (Score 12- Score 16) Vann Fall Scale Copyright Permission PT-OP-E Functional Tests Start: 03/13/19 11:58 Freq: Status: Active Protocol: Document 03/13/19 11:15 DCW (Rec: 03/13/19 12:27 [facility] [id number]) Functional Tests 2 Minute Walk Test Distance 90' Device Used Bilateral walking sticks Comments .75 ft/sec Timed Up and Go (TUG) Score 45.07 Comments 3-trial average (50.38, 46.07, 38.75) TUG Impairment Rating 100% Impaired (Score 20) Tinetti Balance and Gait Assessment Balance Score 10 Gait Score 5 Composite Score 15 Balance Score Impairment Rating 20 to <40% Impaired (Score 10- 12) Gait Score Impairment Rating 40 to <60% Impaired (Score 5-7 ) Composite Score Impairment Rating 40 to <60% Impaired (Score 12- 16) PT-OP-M Strength Start: 03/13/19 11:58 Freq: Status: Active Protocol: Document 03/13/19 11:15 DCW (Rec: 03/13/19 12:27 DCW [id number]) Hip Strength Hip Manual Muscle Testing Right Flexion (L2) 4- Good- Abduction 4- Good- Adduction 4- Good- Left Flexion (L2) 4 Good Abduction 4- Good- Adduction 4- Good- Knee Strength Knee Manual Muscle Testing Right Flexion (S2) 4 Good Extension (L3) 4+ Good+ Left Flexion (S2) 4+ Good+ Extension (L3) 4+ Good+ Ankle/Foot Strength Ankle and Foot Manual Muscle Testing Right Dorsiflexion (L4) 4 Good Plantarflexion (S1) 4- Good- Left Dorsiflexion (L4) 4 Good Plantarflexion (S1) 4- Good- PT-OP-Q Treatments Start: 03/13/19 11:58 Freq: Status: Active Protocol: Document 05/02/19 10:30 DCW (Rec: 05/02/19 11:14 DCW [id number]) Cardio Equipment Recumbent Elliptical ([employer]) Duration (Minutes) 5 Resistance 3 Seat Position 7 Therapeutic Exercises Standing Exercises Marching Standing Exercise Name Marching Side bilateral Resistance 5# Other Exercises sit<->stand Other Exercise Name StS training with UE assist on chair Reps/Minutes x8 Gait Training Gait Activity Stride length Description Step count over specific distance Distance/Duration 20' course Comments # of steps: 16->15->14->13->15 ->15 Gait speed training Description 170' x2 Treatment Focus Increased gait speed, increased stride length Comments 170' time: 175.1 (0.97 ft/sec ); 220.2 (0.77.2 ft/sec) PT-OP-T Assessment and Plan Start: 03/13/19 11:58 Freq: Status: Active Protocol: Document 05/02/19 10:30 DCW (Rec: 05/02/19 11:14 DCW [id number]) Physical Therapy Assessment Impairments Impairments Activity Tolerance,Balance, Functional Activities, Functional Mobility,Gait, Posture,Strength,Transfers Goals Four Impairment Tinetti Clinical Research Nurse Coordinator Goal (LTG) Pt to score at least 20/28 on Tinetti Balance Assessment LTG Duration 05/13/19 Three Impairment LE MMT Clinical Research Nurse Coordinator Goal (LTG) PT LE MMT grossly to 4/5 in order to improve balance and activity tolerance LTG Duration 05/13/19 Two Impairment Gait speed of .75 ft/sec during two minute walk test Clinical Research Nurse Coordinator Goal (LTG) Pt gait speed to 1.2 ft/sec (6 MWT distance of 144'). A gait speed of less than 1.97 indicates a greater likelihood of further functional decline in older adults LTG Duration 05/13/19 One Impairment Pt does not have an appropriate home exercise program Short Term Goal (STG) Pt to be independent and compliant with an appropriate HEP STG Duration 04/13/19 Assessment Summary Assessment Pt did very poorly today, fatigued very quickly and had trouble completing all tasks. Pt noted she was fatigued from her recent trip, and will be better next time. Physical Therapy Plan Frequency and Duration Frequency of Treatment 2x/Week Duration of Treatment 12 weeks Plan of Care Start Date 03/13/19 Plan of Care End Date 06/05/19 Therapeutic Interventions Therapeutic Interventions Aquatic Therapy,Balance Training,Home Exercise Program ,Neuromuscular Re-education, Patient/Caregiver Education, Self-Care/Home Management,Soft Tissue Mobilization, Therapeutic Activities, Therapeutic Exercises Next Visit Focus/Plan Next Note Type Treatment Note Next Visit Plan Strengthening, gait training, gait speed, balance training
--- NOTE | 2019-05-06 17:37 | PT.OTN ---
Current Diagnoses Cerebral infarction, unspecified (05/06/19) Muscle weakness (generalized) (05/06/19) Other abnormalities of gait and mobility (05/06/19) Physical Therapy Treatment Note PT-OP-A Visit Information Start: 03/13/19 11:58 Freq: Status: Active Protocol: Document 05/06/19 17:27 AW (Rec: 05/06/19 17:37 AW [id number]) Out-Patient Physical Therapy Visit Information Visit Information Visit Type Treatment Note Visit Start Time 14:29 Visit Stop Time 15:10 Total Visit Minutes 41 Visit Number 9 Number of ACCOUNTING DIRECTOR Visits 0 Evaluation Information Evaluation Date 03/13/19 PT-OP-B Current Condition Start: 03/13/19 11:58 Freq: Status: Active Protocol: Document 03/13/19 11:15 DCW (Rec: 03/13/19 12:27 DCW [id number]) Current Condition History of Current Condition Onset Date Multi-year history Current Complaints Fatigue, weakness, imbalance, decreased gait speed History of Current Condition Pt is a 78 year old female well known to this clinic presenting with what she calls a loss of ground following her last round of physical therapy earlier in the year. Pt has a history of 5 separate CVAs, and feels her largest problem is her very slow gait speed, as well as weakness. Her slow gait speed is a long- standing issue which has previously been addressed at physical therapy, and she has shown some improvement, but typically does not perform a lot of HEP following discharge , and typically then regresses . Pt does note she has been working with a applications trainer in the local pool, and has begun attending gentle yoga classes, as well as a dancing class for people with disabilities. Prior Treatments and Tests Multiple rounds of physical therapy Treatment Goals Patient/Caregiver Goals Improve strengh and gait speed Prior Functional Status Baseline Function- ADL's Needs Assist Baseline Function- Mobility Needs Assist Baseline Function- Gait Very slow gait with bilateral walking sticks PT-OP-C Subjective Start: 03/13/19 11:58 Freq: Status: Active Protocol: Document 05/06/19 17:27 AW (Rec: 05/06/19 17:37 AW [id number]) OP-PT Subjective Patient Comments Patient Comments My energy is better today. PT-OP-D Balance Start: 03/13/19 11:58 Freq: Status: Active Protocol: Document 03/13/19 11:15 DCW (Rec: 03/13/19 12:27 DC [id number]) OP-PT Balance Assessment Sitting Balance Static Sitting Balance Ability Good Dynamic Sitting Balance Ability Good Standing Balance Static Standing Balance Ability Fair Dynamic Standing Balance Ability Poor Tinetti Balance Assessment Sitting Balance Sitting Balance Leans or slides in chair Arising from Chair Ability to Arise Able, uses arms to help Attempts to Arise Able, requires >1 attempt Standing Balance Immediate Standing Balance Steady w/o support Standing Balance Steady, wide stance Nudged Response Steady Standing with Eyes Closed Steady Turning Step Pattern Turning 360 Degrees Discontinuous steps Stability Turning 360 Degrees Steady Sitting Down Sitting Down Uses arms or unsteady Gait and Step Initiation of Gait No hesitancy Right Foot Step Length Does pass stance foot Right Foot Step Height Does not clear floor Left Foot Step Length Does pass stance foot Left Foot Step Height Does not clear floor Step Description Step Symmetry Step length appears equal Step Continuity Stopping or discontinuity Gait Description Path Description Mild/moderate deviation Trunk Description Marked sway or uses aide Walking Stance Heels apart Scoring and Interpretation Tinetti Composite Score (points) 15 Interpretation of Scores High risk for falls(< 19) Tinetti Impairment Rating from Composite 40 to <60% Impaired (Score 12- Score 16) Vann Fall Scale Copyright Permission PT-OP-E Functional Tests Start: 03/13/19 11:58 Freq: Status: Active Protocol: Document 03/13/19 11:15 DCW (Rec: 03/13/19 12:27 [facility] [id number]) Functional Tests 2 Minute Walk Test Distance 90' Device Used Bilateral walking sticks Comments .75 ft/sec Timed Up and Go (TUG) Score 45.07 Comments 3-trial average (50.38, 46.07, 38.75) TUG Impairment Rating 100% Impaired (Score 20) Tinetti Balance and Gait Assessment Balance Score 10 Gait Score 5 Composite Score 15 Balance Score Impairment Rating 20 to <40% Impaired (Score 10- 12) Gait Score Impairment Rating 40 to <60% Impaired (Score 5-7 ) Composite Score Impairment Rating 40 to <60% Impaired (Score 12- 16) PT-OP-M Strength Start: 03/13/19 11:58 Freq: Status: Active Protocol: Document 03/13/19 11:15 DCW (Rec: 03/13/19 12:27 SCW [id number]) Hip Strength Hip Manual Muscle Testing Right Flexion (L2) 4- Good- Abduction 4- Good- Adduction 4- Good- Left Flexion (L2) 4 Good Abduction 4- Good- Adduction 4- Good- Knee Strength Knee Manual Muscle Testing Right Flexion (S2) 4 Good Extension (L3) 4+ Good+ Left Flexion (S2) 4+ Good+ Extension (L3) 4+ Good+ Ankle/Foot Strength Ankle and Foot Manual Muscle Testing Right Dorsiflexion (L4) 4 Good Plantarflexion (S1) 4- Good- Left Dorsiflexion (L4) 4 Good Plantarflexion (S1) 4- Good- PT-OP-Q Treatments Start: 03/13/19 11:58 Freq: Status: Active Protocol: Document 05/06/19 17:27 AW (Rec: 05/06/19 17:37 AW [id number]) Cardio Equipment Recumbent Elliptical ([employer]x) Duration (Minutes) 5 Resistance 3 Seat Position 7 Therapeutic Exercises Standing Exercises Marching Standing Exercise Name Marching Side bilateral Resistance 5# ankle weights Equipment Used // bars Reps/Minutes back and forth in // bars 5 times Comments seated rest break after each lap; cues for increased hip flexion Other Exercises sit<->stand Other Exercise Name StS training with UE assist on chair Equipment Used standard height chair Reps/Minutes 2x5 reps Comments cues for increased forward flexion Gait Training Gait Activity Stride length Description Step count over specific distance Distance/Duration 20' course Comments # of steps: 16, 14, 14 Gait speed training Description 170' x2 Treatment Focus Increased gait speed, increased stride length Comments 1.1 ft/sec, 0.97 ft/sec PT-OP-T Assessment and Plan Start: 03/13/19 11:58 Freq: Status: Active Protocol: Document 05/06/19 17:27 AW (Rec: 05/06/19 17:37 AW [id number]) Physical Therapy Assessment Impairments Impairments Activity Tolerance,Balance, Functional Activities, Functional Mobility,Gait, Posture,Strength,Transfers Goals Four Impairment Tinetti Intermediate Goal (LTG) Pt to score at least 20/28 on Tinetti Balance Assessment LTG Duration 05/13/19 Three Impairment LE MMT Intermediate Goal (LTG) PT LE MMT grossly to 4/5 in order to improve balance and activity tolerance LTG Duration 05/13/19 Two Impairment Gait speed of .75 ft/sec during two minute walk test Time Study Observer Goal (LTG) Pt gait speed to 1.2 ft/sec (6 MWT distance of 144'). A gait speed of less than 1.97 indicates a greater likelihood of further functional decline in older adults LTG Duration 05/13/19 One Impairment Pt does not have an appropriate home exercise program Short Term Goal (STG) Pt to be independent and compliant with an appropriate HEP STG Duration 04/13/19 Assessment Summary Assessment Pt fatigues very easily, requiring multiple seated rest breaks. She did complete two laps of 170' without breaks, however, and was able to increase her gait speed on the second lap. In response to cues, she is able to increase her step length but requires intense concentration without distraction to maintain. Physical Therapy Plan Frequency and Duration Frequency of Treatment 2x/Week Duration of Treatment 12 weeks Plan of Care Start Date 03/13/19 Plan of Care End Date 06/05/19 Therapeutic Interventions Therapeutic Interventions Aquatic Therapy,Balance Training,Home Exercise Program ,Neuromuscular Re-education, Patient/Caregiver Education, Self-Care/Home Management,Soft Tissue Mobilization, Therapeutic Activities, Therapeutic Exercises Next Visit Focus/Plan Next Note Type Treatment Note Next Visit Plan Strengthening, gait training, gait speed, balance training
--- NOTE | 2019-05-08 16:01 | PT.OTN ---
Current Diagnoses Cerebral infarction, unspecified (05/08/19) Muscle weakness (generalized) (05/08/19) Other abnormalities of gait and mobility (05/08/19) Physical Therapy Treatment Note PT-OP-A Visit Information Start: 03/13/19 11:58 Freq: Status: Active Protocol: Document 05/08/19 15:20 DCW (Rec: 05/08/19 15:59 DCW [id number]) Out-Patient Physical Therapy Visit Information Visit Information Visit Type Treatment Note Visit Start Time 15:20 Visit Stop Time 16:00 Total Visit Minutes 40 Visit Number 10 Number of SALES REPRESENTATIVE TRAINEE Visits 0 Evaluation Information Evaluation Date 03/13/19 PT-OP-B Current Condition Start: 03/13/19 11:58 Freq: Status: Active Protocol: Document 03/13/19 11:15 DCW (Rec: 03/13/19 12:27 DCW [id number]) Current Condition History of Current Condition Onset Date Multi-year history Current Complaints Fatigue, weakness, imbalance, decreased gait speed History of Current Condition Pt is a 78 year old female well known to this clinic presenting with what she calls a loss of ground following her last round of physical therapy earlier in the year. Pt has a history of 5 separate CVAs, and feels her largest problem is her very slow gait speed, as well as weakness. Her slow gait speed is a long- standing issue which has previously been addressed at physical therapy, and she has shown some improvement, but typically does not perform a lot of HEP following discharge , and typically then regresses . Pt does note she has been working with a link trainer in the local pool, and has begun attending gentle yoga classes, as well as a dancing class for people with disabilities. Prior Treatments and Tests Multiple rounds of physical therapy Treatment Goals Patient/Caregiver Goals Improve strengh and gait speed Prior Functional Status Baseline Function- ADL's Needs Assist Baseline Function- Mobility Needs Assist Baseline Function- Gait Very slow gait with bilateral walking sticks PT-OP-C Subjective Start: 03/13/19 11:58 Freq: Status: Active Protocol: Document 05/08/19 15:20 DCW (Rec: 05/08/19 15:59 DCW [id number]) OP-PT Subjective Patient Comments Patient Comments Pt reports she is more energetic than usual today. PT-OP-D Balance Start: 03/13/19 11:58 Freq: Status: Active Protocol: Document 03/13/19 11:15 DCW (Rec: 03/13/19 12:27 DCW [id number]) OP-PT Balance Assessment Sitting Balance Static Sitting Balance Ability Good Dynamic Sitting Balance Ability Good Standing Balance Static Standing Balance Ability Fair Dynamic Standing Balance Ability Poor Tinetti Balance Assessment Sitting Balance Sitting Balance Leans or slides in chair Arising from Chair Ability to Arise Able, uses arms to help Attempts to Arise Able, requires >1 attempt Standing Balance Immediate Standing Balance Steady w/o support Standing Balance Steady, wide stance Nudged Response Steady Standing with Eyes Closed Steady Turning Step Pattern Turning 360 Degrees Discontinuous steps Stability Turning 360 Degrees Steady Sitting Down Sitting Down Uses arms or unsteady Gait and Step Initiation of Gait No hesitancy Right Foot Step Length Does pass stance foot Right Foot Step Height Does not clear floor Left Foot Step Length Does pass stance foot Left Foot Step Height Does not clear floor Step Description Step Symmetry Step length appears equal Step Continuity Stopping or discontinuity Gait Description Path Description Mild/moderate deviation Trunk Description Marked sway or uses aide Walking Stance Heels apart Scoring and Interpretation Tinetti Composite Score (points) 15 Interpretation of Scores High risk for falls(< 19) Tinetti Impairment Rating from Composite 40 to <60% Impaired (Score 12- Score 16) Vann Fall Scale Copyright Permission PT-OP-E Functional Tests Start: 03/13/19 11:58 Freq: Status: Active Protocol: Document 03/13/19 11:15 DCW (Rec: 03/13/19 12:27 [facility] [id number]) Functional Tests 2 Minute Walk Test Distance 90' Device Used Bilateral walking sticks Comments .75 ft/sec Timed Up and Go (TUG) Score 45.07 Comments 3-trial average (50.38, 46.07, 38.75) TUG Impairment Rating 100% Impaired (Score 20) Tinetti Balance and Gait Assessment Balance Score 10 Gait Score 5 Composite Score 15 Balance Score Impairment Rating 20 to <40% Impaired (Score 10- 12) Gait Score Impairment Rating 40 to <60% Impaired (Score 5-7 ) Composite Score Impairment Rating 40 to <60% Impaired (Score 12- 16) PT-OP-M Strength Start: 03/13/19 11:58 Freq: Status: Active Protocol: Document 03/13/19 11:15 DCW (Rec: 03/13/19 12:27 DCW [id number]) Hip Strength Hip Manual Muscle Testing Right Flexion (L2) 4- Good- Abduction 4- Good- Adduction 4- Good- Left Flexion (L2) 4 Good Abduction 4- Good- Adduction 4- Good- Knee Strength Knee Manual Muscle Testing Right Flexion (S2) 4 Good Extension (L3) 4+ Good+ Left Flexion (S2) 4+ Good+ Extension (L3) 4+ Good+ Ankle/Foot Strength Ankle and Foot Manual Muscle Testing Right Dorsiflexion (L4) 4 Good Plantarflexion (S1) 4- Good- Left Dorsiflexion (L4) 4 Good Plantarflexion (S1) 4- Good- PT-OP-Q Treatments Start: 03/13/19 11:58 Freq: Status: Active Protocol: Document 05/08/19 15:20 DCW (Rec: 05/08/19 15:59 DCW [id number]) Cardio Equipment Recumbent Elliptical (Biodex) Duration (Minutes) 5 Resistance 3 Seat Position 7 Gym Equipment Shuttle Recovery Unilateral Squats Resistance 37# Shuttle Recovery Platform Stable Bilateral Squats Resistance 50# Shuttle Recovery Platform Stable Therapeutic Exercises Standing Exercises Marching Standing Exercise Name Marching Side bilateral Resistance 5# Gait Training Gait Activity Stride length Description Step count over specific distance Distance/Duration 20' course Comments # of steps: 14->13->14->14 Gait speed training Description 170' x2 Treatment Focus Increased gait speed, increased stride length Comments 170' time: 108.6 (1.57 ft/sec ); 108.1 (1.57 ft/sec) PT-OP-T Assessment and Plan Start: 03/13/19 11:58 Freq: Status: Active Protocol: Document 05/08/19 15:20 DCW (Rec: 05/08/19 15:59 DCW [id number]) Physical Therapy Assessment Impairments Impairments Activity Tolerance,Balance, Functional Activities, Functional Mobility,Gait, Posture,Strength,Transfers Goals Four Impairment Tinetti Sn[facility] Goal (LTG) Pt to score at least 20/28 on Tinetti Balance Assessment LTG Duration 05/13/19 Three Impairment LE MMT Snf Goal (LTG) PT LE MMT grossly to 4/5 in order to improve balance and activity tolerance LTG Duration 05/13/19 Two Impairment Gait speed of .75 ft/sec during two minute walk test Color Making Supervisor Goal (LTG) Pt gait speed to 1.2 ft/sec (6 MWT distance of 144'). A gait speed of less than 1.97 indicates a greater likelihood of further functional decline in older adults LTG Duration 05/13/19 One Impairment Pt does not have an appropriate home exercise program Short Term Goal (STG) Pt to be independent and compliant with an appropriate HEP STG Duration 04/13/19 Assessment Summary Assessment Pt did very well today, had her two fastest laps aver. Pt reports she felt good today, thinks that because she had an eye appointment earlier today , she was already up and moving , not just getting here after getting out of bed. Physical Therapy Plan Frequency and Duration Frequency of Treatment 2x/Week Duration of Treatment 12 weeks Plan of Care Start Date 03/13/19 Plan of Care End Date 06/05/19 Therapeutic Interventions Therapeutic Interventions Aquatic Therapy,Balance Training,Home Exercise Program ,Neuromuscular Re-education, Patient/Caregiver Education, Self-Care/Home Management,Soft Tissue Mobilization, Therapeutic Activities, Therapeutic Exercises Next Visit Focus/Plan Next Note Type Treatment Note Next Visit Plan Strengthening, gait training, gait speed, balance training
--- NOTE | 2019-05-13 11:58 | PT.OTN ---
Current Diagnoses Cerebral infarction, unspecified (05/13/19) Muscle weakness (generalized) (05/13/19) Other abnormalities of gait and mobility (05/13/19) Physical Therapy Treatment Note PT-OP-A Visit Information Start: 03/13/19 11:58 Freq: Status: Active Protocol: Document 05/13/19 11:15 DCW (Rec: 05/13/19 11:55 DCW [id number]) Out-Patient Physical Therapy Visit Information Visit Information Visit Type Treatment Note Visit Start Time 11:15 Visit Stop Time 12:00 Total Visit Minutes 45 Visit Number 11 Number of VESSEL ENGINEER Visits 0 Evaluation Information Evaluation Date 03/13/19 PT-OP-B Current Condition Start: 03/13/19 11:58 Freq: Status: Active Protocol: Document 03/13/19 11:15 DCW (Rec: 03/13/19 12:27 DCW [id number]) Current Condition History of Current Condition Onset Date Multi-year history Current Complaints Fatigue, weakness, imbalance, decreased gait speed History of Current Condition Pt is a 78 year old female well known to this clinic presenting with what she calls a loss of ground following her last round of physical therapy earlier in the year. Pt has a history of 5 separate CVAs, and feels her largest problem is her very slow gait speed, as well as weakness. Her slow gait speed is a long- standing issue which has previously been addressed at physical therapy, and she has shown some improvement, but typically does not perform a lot of HEP following discharge , and typically then regresses . Pt does note she has been working with a maintenance trainer in the local pool, and has begun attending gentle yoga classes, as well as a dancing class for people with disabilities. Prior Treatments and Tests Multiple rounds of physical therapy Treatment Goals Patient/Caregiver Goals Improve strengh and gait speed Prior Functional Status Baseline Function- ADL's Needs Assist Baseline Function- Mobility Needs Assist Baseline Function- Gait Very slow gait with bilateral walking sticks PT-OP-C Subjective Start: 03/13/19 11:58 Freq: Status: Active Protocol: Document 05/13/19 11:15 DCW (Rec: 05/13/19 11:55 DCW [id number]) OP-PT Subjective Patient Comments Patient Comments Pt reports she had a busy weekend, with an out-of-town guest visiting. PT-OP-D Balance Start: 03/13/19 11:58 Freq: Status: Active Protocol: Document 03/13/19 11:15 DCW (Rec: 03/13/19 12:27 DCW [id number]) OP-PT Balance Assessment Sitting Balance Static Sitting Balance Ability Good Dynamic Sitting Balance Ability Good Standing Balance Static Standing Balance Ability Fair Dynamic Standing Balance Ability Poor Tinetti Balance Assessment Sitting Balance Sitting Balance Leans or slides in chair Arising from Chair Ability to Arise Able, uses arms to help Attempts to Arise Able, requires >1 attempt Standing Balance Immediate Standing Balance Steady w/o support Standing Balance Steady, wide stance Nudged Response Steady Standing with Eyes Closed Steady Turning Step Pattern Turning 360 Degrees Discontinuous steps Stability Turning 360 Degrees Steady Sitting Down Sitting Down Uses arms or unsteady Gait and Step Initiation of Gait No hesitancy Right Foot Step Length Does pass stance foot Right Foot Step Height Does not clear floor Left Foot Step Length Does pass stance foot Left Foot Step Height Does not clear floor Step Description Step Symmetry Step length appears equal Step Continuity Stopping or discontinuity Gait Description Path Description Mild/moderate deviation Trunk Description Marked sway or uses aide Walking Stance Heels apart Scoring and Interpretation Tinetti Composite Score (points) 15 Interpretation of Scores High risk for falls(< 19) Tinetti Impairment Rating from Composite 40 to <60% Impaired (Score 12- Score 16) Vann Fall Scale Copyright Permission PT-OP-E Functional Tests Start: 03/13/19 11:58 Freq: Status: Active Protocol: Document 03/13/19 11:15 DCW (Rec: 03/13/19 12:27 [facility] [id number]) Functional Tests 2 Minute Walk Test Distance 90' Device Used Bilateral walking sticks Comments .75 ft/sec Timed Up and Go (TUG) Score 45.07 Comments 3-trial average (50.38, 46.07, 38.75) TUG Impairment Rating 100% Impaired (Score 20) Tinetti Balance and Gait Assessment Balance Score 10 Gait Score 5 Composite Score 15 Balance Score Impairment Rating 20 to <40% Impaired (Score 10- 12) Gait Score Impairment Rating 40 to <60% Impaired (Score 5-7 ) Composite Score Impairment Rating 40 to <60% Impaired (Score 12- 16) PT-OP-M Strength Start: 03/13/19 11:58 Freq: Status: Active Protocol: Document 03/13/19 11:15 DCW (Rec: 03/13/19 12:27 DCW [id number]) Hip Strength Hip Manual Muscle Testing Right Flexion (L2) 4- Good- Abduction 4- Good- Adduction 4- Good- Left Flexion (L2) 4 Good Abduction 4- Good- Adduction 4- Good- Knee Strength Knee Manual Muscle Testing Right Flexion (S2) 4 Good Extension (L3) 4+ Good+ Left Flexion (S2) 4+ Good+ Extension (L3) 4+ Good+ Ankle/Foot Strength Ankle and Foot Manual Muscle Testing Right Dorsiflexion (L4) 4 Good Plantarflexion (S1) 4- Good- Left Dorsiflexion (L4) 4 Good Plantarflexion (S1) 4- Good- PT-OP-Q Treatments Start: 03/13/19 11:58 Freq: Status: Active Protocol: Document 05/13/19 11:15 DCW (Rec: 05/13/19 11:55 DCW [id number]) Cardio Equipment Recumbent Elliptical (BiodMy-Hammer) Duration (Minutes) 6 Resistance 4 Seat Position 7 Gym Equipment Shuttle Recovery Unilateral Squats Resistance 37# Shuttle Recovery Platform Stable Reps/Time x25 Bilateral Squats Resistance 50# Shuttle Recovery Platform Stable Reps/Time x25 Therapeutic Exercises Standing Exercises Heel raises Standing Exercise Name Heel raises @ rail Gait Training Gait Activity Stride length Description Step count over specific distance Distance/Duration 20' course Comments # of steps: 15->15->13->13->12 ->13 Gait speed training Description 170' x2 Treatment Focus Increased gait speed, increased stride length Comments 170' time: 116.3 (1.46 ft/sec ); 119.0 (1.43 ft/sec) PT-OP-T Assessment and Plan Start: 03/13/19 11:58 Freq: Status: Active Protocol: Document 05/13/19 11:15 DCW (Rec: 05/13/19 11:55 DCW [id number]) Physical Therapy Assessment Impairments Impairments Activity Tolerance,Balance, Functional Activities, Functional Mobility,Gait, Posture,Strength,Transfers Goals Four Impairment Tinetti [facility] Goal (LTG) Pt to score at least 20/28 on Tinetti Balance Assessment LTG Duration 05/13/19 Three Impairment LE MMT Type Photography Supervisor Goal (LTG) PT LE MMT grossly to 4/5 in order to improve balance and activity tolerance LTG Duration 05/13/19 Two Impairment Gait speed of .75 ft/sec during two minute walk test [facility] Goal (LTG) Pt gait speed to 1.2 ft/sec (6 MWT distance of 144'). A gait speed of less than 1.97 indicates a greater likelihood of further functional decline in older adults LTG Duration 05/13/19 One Impairment Pt does not have an appropriate home exercise program Short Term Goal (STG) Pt to be independent and compliant with an appropriate HEP STG Duration 04/13/19 Assessment Summary Assessment Pt again did very well today, able to do both her 170' laps in a sub-two minute time. Pt noticeably fatigued by the end of the session, as is her usual, but was able to complete her exercises. Physical Therapy Plan Frequency and Duration Frequency of Treatment 2x/Week Duration of Treatment 12 weeks Plan of Care Start Date 03/13/19 Plan of Care End Date 06/05/19 Therapeutic Interventions Therapeutic Interventions Aquatic Therapy,Balance Training,Home Exercise Program ,Neuromuscular Re-education, Patient/Caregiver Education, Self-Care/Home Management,Soft Tissue Mobilization, Therapeutic Activities, Therapeutic Exercises Next Visit Focus/Plan Next Note Type Treatment Note Next Visit Plan Strengthening, gait training, gait speed, balance training
--- NOTE | 2019-05-16 11:13 | PT.OTN ---
Current Diagnoses Cerebral infarction, unspecified (05/16/19) Muscle weakness (generalized) (05/16/19) Other abnormalities of gait and mobility (05/16/19) Physical Therapy Treatment Note PT-OP-A Visit Information Start: 03/13/19 11:58 Freq: Status: Active Protocol: Document 05/16/19 10:30 DCW (Rec: 05/16/19 11:12 DCW [id number]) Out-Patient Physical Therapy Visit Information Visit Information Visit Type Treatment Note Visit Start Time 10:30 Visit Stop Time 11:15 Total Visit Minutes 45 Visit Number 12 Number of BAKERY MACHINE MECHANIC Visits 0 Evaluation Information Evaluation Date 03/13/19 PT-OP-B Current Condition Start: 03/13/19 11:58 Freq: Status: Active Protocol: Document 03/13/19 11:15 DCW (Rec: 03/13/19 12:27 DCW [id number]) Current Condition History of Current Condition Onset Date Multi-year history Current Complaints Fatigue, weakness, imbalance, decreased gait speed History of Current Condition Pt is a 78 year old female well known to this clinic presenting with what she calls a loss of ground following her last round of physical therapy earlier in the year. Pt has a history of 5 separate CVAs, and feels her largest problem is her very slow gait speed, as well as weakness. Her slow gait speed is a long- standing issue which has previously been addressed at physical therapy, and she has shown some improvement, but typically does not perform a lot of HEP following discharge , and typically then regresses . Pt does note she has been working with a corporate sales trainer in the local pool, and has begun attending gentle yoga classes, as well as a dancing class for people with disabilities. Prior Treatments and Tests Multiple rounds of physical therapy Treatment Goals Patient/Caregiver Goals Improve strengh and gait speed Prior Functional Status Baseline Function- ADL's Needs Assist Baseline Function- Mobility Needs Assist Baseline Function- Gait Very slow gait with bilateral walking sticks PT-OP-C Subjective Start: 03/13/19 11:58 Freq: Status: Active Protocol: Document 05/16/19 10:30 DCW (Rec: 05/16/19 11:12 DCW [id number]) OP-PT Subjective Patient Comments Patient Comments I haven't had anything to eat today, not even a coffee. PT-OP-D Balance Start: 03/13/19 11:58 Freq: Status: Active Protocol: Document 03/13/19 11:15 DCW (Rec: 03/13/19 12:27 DCW [id number]) OP-PT Balance Assessment Sitting Balance Static Sitting Balance Ability Good Dynamic Sitting Balance Ability Good Standing Balance Static Standing Balance Ability Fair Dynamic Standing Balance Ability Poor Tinetti Balance Assessment Sitting Balance Sitting Balance Leans or slides in chair Arising from Chair Ability to Arise Able, uses arms to help Attempts to Arise Able, requires >1 attempt Standing Balance Immediate Standing Balance Steady w/o support Standing Balance Steady, wide stance Nudged Response Steady Standing with Eyes Closed Steady Turning Step Pattern Turning 360 Degrees Discontinuous steps Stability Turning 360 Degrees Steady Sitting Down Sitting Down Uses arms or unsteady Gait and Step Initiation of Gait No hesitancy Right Foot Step Length Does pass stance foot Right Foot Step Height Does not clear floor Left Foot Step Length Does pass stance foot Left Foot Step Height Does not clear floor Step Description Step Symmetry Step length appears equal Step Continuity Stopping or discontinuity Gait Description Path Description Mild/moderate deviation Trunk Description Marked sway or uses aide Walking Stance Heels apart Scoring and Interpretation Tinetti Composite Score (points) 15 Interpretation of Scores High risk for falls(< 19) Tinetti Impairment Rating from Composite 40 to <60% Impaired (Score 12- Score 16) Vann Fall Scale Copyright Permission PT-OP-E Functional Tests Start: 03/13/19 11:58 Freq: Status: Active Protocol: Document 03/13/19 11:15 DCW (Rec: 03/13/19 12:27 DCW [id number]) Functional Tests 2 Minute Walk Test Distance 90' Device Used Bilateral walking sticks Comments .75 ft/sec Timed Up and Go (TUG) Score 45.07 Comments 3-trial average (50.38, 46.07, 38.75) TUG Impairment Rating 100% Impaired (Score 20) Tinetti Balance and Gait Assessment Balance Score 10 Gait Score 5 Composite Score 15 Balance Score Impairment Rating 20 to <40% Impaired (Score 10- 12) Gait Score Impairment Rating 40 to <60% Impaired (Score 5-7 ) Composite Score Impairment Rating 40 to <60% Impaired (Score 12- 16) PT-OP-M Strength Start: 03/13/19 11:58 Freq: Status: Active Protocol: Document 03/13/19 11:15 DCW (Rec: 03/13/19 12:27 DCW [id number]) Hip Strength Hip Manual Muscle Testing Right Flexion (L2) 4- Good- Abduction 4- Good- Adduction 4- Good- Left Flexion (L2) 4 Good Abduction 4- Good- Adduction 4- Good- Knee Strength Knee Manual Muscle Testing Right Flexion (S2) 4 Good Extension (L3) 4+ Good+ Left Flexion (S2) 4+ Good+ Extension (L3) 4+ Good+ Ankle/Foot Strength Ankle and Foot Manual Muscle Testing Right Dorsiflexion (L4) 4 Good Plantarflexion (S1) 4- Good- Left Dorsiflexion (L4) 4 Good Plantarflexion (S1) 4- Good- PT-OP-Q Treatments Start: 03/13/19 11:58 Freq: Status: Active Protocol: Document 05/16/19 10:30 DCW (Rec: 05/16/19 11:12 DCW [id number]) Cardio Equipment Recumbent Elliptical (Biodex) Duration (Minutes) 6 Resistance 4 Seat Position 7 Gym Equipment Shuttle Recovery Unilateral Squats Resistance 37# Shuttle Recovery Platform Stable Reps/Time x25 Bilateral Squats Resistance 62# Shuttle Recovery Platform Stable Reps/Time x25 Therapeutic Exercises Other Exercises Side-stepping Other Exercise Name Side-stepping at rail Resistance none Gait Training Gait Activity Stride length Description Step count over specific distance Distance/Duration 20' course Comments # of steps: 15->14->13->14->12 ->15 Gait speed training Comments Attempted to amb a timed lap, however large wheelchair in the [place]ur[place] created too big an obstacle, pt had to slow down significantly to try to squeeze past. PT-OP-T Assessment and Plan Start: 03/13/19 11:58 Freq: Status: Active Protocol: Document 05/16/19 10:30 DCW (Rec: 05/16/19 11:12 DCW [id number]) Physical Therapy Assessment Impairments Impairments Activity Tolerance,Balance, Functional Activities, Functional Mobility,Gait, Posture,Strength,Transfers Goals Four Impairment Tinetti [facility] Goal (LTG) Pt to score at least 20/28 on Tinetti Balance Assessment LTG Duration 05/13/19 Three Impairment LE MMT [employer] Goal (LTG) PT LE MMT grossly to 4/5 in order to improve balance and activity tolerance LTG Duration 05/13/19 Two Impairment Gait speed of .75 ft/sec during two minute walk test Retirement Goal (LTG) Pt gait speed to 1.2 ft/sec (6 MWT distance of 144'). A gait speed of less than 1.97 indicates a greater likelihood of further functional decline in older adults LTG Duration 05/13/19 One Impairment Pt does not have an appropriate home exercise program Short Term Goal (STG) Pt to be independent and compliant with an appropriate HEP STG Duration 04/13/19 Assessment Summary Assessment Pt slow and fatigued today, and became very easily distracted, stopping mid- activity to watch other patients. Physical Therapy Plan Frequency and Duration Frequency of Treatment 2x/Week Duration of Treatment 12 weeks Plan of Care Start Date 03/13/19 Plan of Care End Date 06/05/19 Therapeutic Interventions Therapeutic Interventions Aquatic Therapy,Balance Training,Home Exercise Program ,Neuromuscular Re-education, Patient/Caregiver Education, Self-Care/Home Management,Soft Tissue Mobilization, Therapeutic Activities, Therapeutic Exercises Next Visit Focus/Plan Next Note Type Treatment Note Next Visit Plan Strengthening, gait training, gait speed, balance training
--- NOTE | 2019-05-20 12:01 | PT.OTN ---
Current Diagnoses Cerebral infarction, unspecified (05/20/19) Muscle weakness (generalized) (05/20/19) Other abnormalities of gait and mobility (05/20/19) Physical Therapy Treatment Note PT-OP-A Visit Information Start: 03/13/19 11:58 Freq: Status: Active Protocol: Document 05/20/19 11:15 DCW (Rec: 05/20/19 12:00 DCW [id number]) Out-Patient Physical Therapy Visit Information Visit Information Visit Type Treatment Note Visit Start Time 11:15 Visit Stop Time 12:00 Total Visit Minutes 45 Visit Number 13 Number of AUDIT CLERKS SUPERVISOR Visits 0 Evaluation Information Evaluation Date 03/13/19 PT-OP-B Current Condition Start: 03/13/19 11:58 Freq: Status: Active Protocol: Document 03/13/19 11:15 DCW (Rec: 03/13/19 12:27 DCW [id number]) Current Condition History of Current Condition Onset Date Multi-year history Current Complaints Fatigue, weakness, imbalance, decreased gait speed History of Current Condition Pt is a 78 year old female well known to this clinic presenting with what she calls a loss of ground following her last round of physical therapy earlier in the year. Pt has a history of 5 separate CVAs, and feels her largest problem is her very slow gait speed, as well as weakness. Her slow gait speed is a long- standing issue which has previously been addressed at physical therapy, and she has shown some improvement, but typically does not perform a lot of HEP following discharge , and typically then regresses . Pt does note she has been working with a ultimate hoops trainer in the local pool, and has begun attending gentle yoga classes, as well as a dancing class for people with disabilities. Prior Treatments and Tests Multiple rounds of physical therapy Treatment Goals Patient/Caregiver Goals Improve strengh and gait speed Prior Functional Status Baseline Function- ADL's Needs Assist Baseline Function- Mobility Needs Assist Baseline Function- Gait Very slow gait with bilateral walking sticks PT-OP-C Subjective Start: 03/13/19 11:58 Freq: Status: Active Protocol: Document 05/20/19 11:15 DCW (Rec: 05/20/19 12:00 DCW [id number]) OP-PT Subjective Patient Comments Patient Comments Pt reports she feeling pretty good today, was able to eat breakfast prior to coming to therapy. PT-OP-D Balance Start: 03/13/19 11:58 Freq: Status: Active Protocol: Document 03/13/19 11:15 DCW (Rec: 03/13/19 12:27 DCW [id number]) OP-PT Balance Assessment Sitting Balance Static Sitting Balance Ability Good Dynamic Sitting Balance Ability Good Standing Balance Static Standing Balance Ability Fair Dynamic Standing Balance Ability Poor Tinetti Balance Assessment Sitting Balance Sitting Balance Leans or slides in chair Arising from Chair Ability to Arise Able, uses arms to help Attempts to Arise Able, requires >1 attempt Standing Balance Immediate Standing Balance Steady w/o support Standing Balance Steady, wide stance Nudged Response Steady Standing with Eyes Closed Steady Turning Step Pattern Turning 360 Degrees Discontinuous steps Stability Turning 360 Degrees Steady Sitting Down Sitting Down Uses arms or unsteady Gait and Step Initiation of Gait No hesitancy Right Foot Step Length Does pass stance foot Right Foot Step Height Does not clear floor Left Foot Step Length Does pass stance foot Left Foot Step Height Does not clear floor Step Description Step Symmetry Step length appears equal Step Continuity Stopping or discontinuity Gait Description Path Description Mild/moderate deviation Trunk Description Marked sway or uses aide Walking Stance Heels apart Scoring and Interpretation Tinetti Composite Score (points) 15 Interpretation of Scores High risk for falls(< 19) Tinetti Impairment Rating from Composite 40 to <60% Impaired (Score 12- Score 16) Vann Fall Scale Copyright Permission PT-OP-E Functional Tests Start: 03/13/19 11:58 Freq: Status: Active Protocol: Document 03/13/19 11:15 DCW (Rec: 03/13/19 12:27 DC [id number]) Functional Tests 2 Minute Walk Test Distance 90' Device Used Bilateral walking sticks Comments .75 ft/sec Timed Up and Go (TUG) Score 45.07 Comments 3-trial average (50.38, 46.07, 38.75) TUG Impairment Rating 100% Impaired (Score 20) Tinetti Balance and Gait Assessment Balance Score 10 Gait Score 5 Composite Score 15 Balance Score Impairment Rating 20 to <40% Impaired (Score 10- 12) Gait Score Impairment Rating 40 to <60% Impaired (Score 5-7 ) Composite Score Impairment Rating 40 to <60% Impaired (Score 12- 16) PT-OP-M Strength Start: 03/13/19 11:58 Freq: Status: Active Protocol: Document 03/13/19 11:15 DCW (Rec: 03/13/19 12:27 DCW [id number]) Hip Strength Hip Manual Muscle Testing Right Flexion (L2) 4- Good- Abduction 4- Good- Adduction 4- Good- Left Flexion (L2) 4 Good Abduction 4- Good- Adduction 4- Good- Knee Strength Knee Manual Muscle Testing Right Flexion (S2) 4 Good Extension (L3) 4+ Good+ Left Flexion (S2) 4+ Good+ Extension (L3) 4+ Good+ Ankle/Foot Strength Ankle and Foot Manual Muscle Testing Right Dorsiflexion (L4) 4 Good Plantarflexion (S1) 4- Good- Left Dorsiflexion (L4) 4 Good Plantarflexion (S1) 4- Good- PT-OP-Q Treatments Start: 03/13/19 11:58 Freq: Status: Active Protocol: Document 05/20/19 11:15 DCW (Rec: 05/20/19 12:00 DCW [id number]) Cardio Equipment Recumbent Elliptical (Biodex) Duration (Minutes) 5 Resistance 4 Seat Position 8 Gym Equipment Shuttle Recovery Unilateral Squats Resistance 37# Shuttle Recovery Platform Stable Reps/Time x25 Bilateral Squats Resistance 62# Shuttle Recovery Platform Stable Reps/Time x25 Therapeutic Exercises Sitting Exercises Hip Adductor Ball Squeeze Sitting Exercise Name Add Ball Squeeze Side bilateral Resistance Small ball Equipment Used 5 hold Hamstring Curls Sitting Exercise Name Hamstring Curls Side bilateral Resistance Lv 2 Equipment Used T-band Reps/Minutes x20 Hip Abduction Sitting Exercise Name Hip Abduction Side bilateral Resistance Lv 2 Equipment Used T-band Reps/Minutes x20 Gait Training Gait Activity Stride length Description Step count over specific distance Distance/Duration 20' course Comments # of steps: 14->12->12->14->13 ->12 Gait speed training Description 170' x2 Treatment Focus Increased gait speed, increased stride length Comments 170' time: 120.1 (1.42 ft/sec ); 111.3 (1.53 ft/sec) PT-OP-T Assessment and Plan Start: 03/13/19 11:58 Freq: Status: Active Protocol: Document 05/20/19 11:15 DCW (Rec: 05/20/19 12:00 DCW [id number]) Physical Therapy Assessment Impairments Impairments Activity Tolerance,Balance, Functional Activities, Functional Mobility,Gait, Posture,Strength,Transfers Goals Four Impairment Tinetti Sales Contractor Goal (LTG) Pt to score at least 20/28 on Tinetti Balance Assessment LTG Duration 05/13/19 Three Impairment LE MMT Detention Goal (LTG) PT LE MMT grossly to 4/5 in order to improve balance and activity tolerance LTG Duration 05/13/19 Two Impairment Gait speed of .75 ft/sec during two minute walk test Detention Goal (LTG) Pt gait speed to 1.2 ft/sec (6 MWT distance of 144'). A gait speed of less than 1.97 indicates a greater likelihood of further functional decline in older adults LTG Duration 05/13/19 One Impairment Pt does not have an appropriate home exercise program Short Term Goal (STG) Pt to be independent and compliant with an appropriate HEP STG Duration 04/13/19 Assessment Summary Assessment Pt improved today, much quicker during her laps, better stride length, and increased energy level. Physical Therapy Plan Frequency and Duration Frequency of Treatment 2x/Week Duration of Treatment 12 weeks Plan of Care Start Date 03/13/19 Plan of Care End Date 06/05/19 Therapeutic Interventions Therapeutic Interventions Aquatic Therapy,Balance Training,Home Exercise Program ,Neuromuscular Re-education, Patient/Caregiver Education, Self-Care/Home Management,Soft Tissue Mobilization, Therapeutic Activities, Therapeutic Exercises Next Visit Focus/Plan Next Note Type Treatment Note Next Visit Plan Strengthening, gait training, gait speed, balance training
--- NOTE | 2019-05-22 11:13 | PT.OTN ---
Current Diagnoses Cerebral infarction, unspecified (05/22/19) Muscle weakness (generalized) (05/22/19) Other abnormalities of gait and mobility (05/22/19) Physical Therapy Treatment Note PT-OP-A Visit Information Start: 03/13/19 11:58 Freq: Status: Active Protocol: Document 05/22/19 10:30 DCW (Rec: 05/22/19 11:10 DCW [id number]) Out-Patient Physical Therapy Visit Information Visit Information Visit Type Treatment Note Visit Start Time 10:30 Visit Stop Time 11:15 Total Visit Minutes 45 Visit Number 12 Number of GROUND CREWMAN Visits 0 Evaluation Information Evaluation Date 03/13/19 PT-OP-B Current Condition Start: 03/13/19 11:58 Freq: Status: Active Protocol: Document 03/13/19 11:15 DCW (Rec: 03/13/19 12:27 DCW [id number]) Current Condition History of Current Condition Onset Date Multi-year history Current Complaints Fatigue, weakness, imbalance, decreased gait speed History of Current Condition Pt is a 78 year old female well known to this clinic presenting with what she calls a loss of ground following her last round of physical therapy earlier in the year. Pt has a history of 5 separate CVAs, and feels her largest problem is her very slow gait speed, as well as weakness. Her slow gait speed is a long- standing issue which has previously been addressed at physical therapy, and she has shown some improvement, but typically does not perform a lot of HEP following discharge , and typically then regresses . Pt does note she has been working with a life skills trainer in the local pool, and has begun attending gentle yoga classes, as well as a dancing class for people with disabilities. Prior Treatments and Tests Multiple rounds of physical therapy Treatment Goals Patient/Caregiver Goals Improve strengh and gait speed Prior Functional Status Baseline Function- ADL's Needs Assist Baseline Function- Mobility Needs Assist Baseline Function- Gait Very slow gait with bilateral walking sticks PT-OP-C Subjective Start: 03/13/19 11:58 Freq: Status: Active Protocol: Document 05/22/19 10:30 DCW (Rec: 05/22/19 11:10 DCW [id number]) OP-PT Subjective Patient Comments Patient Comments I'm pretty tired today. I had a big day yesterday. PT-OP-D Balance Start: 03/13/19 11:58 Freq: Status: Active Protocol: Document 03/13/19 11:15 DCW (Rec: 03/13/19 12:27 DCW [id number]) OP-PT Balance Assessment Sitting Balance Static Sitting Balance Ability Good Dynamic Sitting Balance Ability Good Standing Balance Static Standing Balance Ability Fair Dynamic Standing Balance Ability Poor Tinetti Balance Assessment Sitting Balance Sitting Balance Leans or slides in chair Arising from Chair Ability to Arise Able, uses arms to help Attempts to Arise Able, requires >1 attempt Standing Balance Immediate Standing Balance Steady w/o support Standing Balance Steady, wide stance Nudged Response Steady Standing with Eyes Closed Steady Turning Step Pattern Turning 360 Degrees Discontinuous steps Stability Turning 360 Degrees Steady Sitting Down Sitting Down Uses arms or unsteady Gait and Step Initiation of Gait No hesitancy Right Foot Step Length Does pass stance foot Right Foot Step Height Does not clear floor Left Foot Step Length Does pass stance foot Left Foot Step Height Does not clear floor Step Description Step Symmetry Step length appears equal Step Continuity Stopping or discontinuity Gait Description Path Description Mild/moderate deviation Trunk Description Marked sway or uses aide Walking Stance Heels apart Scoring and Interpretation Tinetti Composite Score (points) 15 Interpretation of Scores High risk for falls(< 19) Tinetti Impairment Rating from Composite 40 to <60% Impaired (Score 12- Score 16) Vann Fall Scale Copyright Permission PT-OP-E Functional Tests Start: 03/13/19 11:58 Freq: Status: Active Protocol: Document 03/13/19 11:15 DCW (Rec: 03/13/19 12:27 [facility] [id number]) Functional Tests 2 Minute Walk Test Distance 90' Device Used Bilateral walking sticks Comments .75 ft/sec Timed Up and Go (TUG) Score 45.07 Comments 3-trial average (50.38, 46.07, 38.75) TUG Impairment Rating 100% Impaired (Score 20) Tinetti Balance and Gait Assessment Balance Score 10 Gait Score 5 Composite Score 15 Balance Score Impairment Rating 20 to <40% Impaired (Score 10- 12) Gait Score Impairment Rating 40 to <60% Impaired (Score 5-7 ) Composite Score Impairment Rating 40 to <60% Impaired (Score 12- 16) PT-OP-M Strength Start: 03/13/19 11:58 Freq: Status: Active Protocol: Document 03/13/19 11:15 DCW (Rec: 03/13/19 12:27 DCW [id number]) Hip Strength Hip Manual Muscle Testing Right Flexion (L2) 4- Good- Abduction 4- Good- Adduction 4- Good- Left Flexion (L2) 4 Good Abduction 4- Good- Adduction 4- Good- Knee Strength Knee Manual Muscle Testing Right Flexion (S2) 4 Good Extension (L3) 4+ Good+ Left Flexion (S2) 4+ Good+ Extension (L3) 4+ Good+ Ankle/Foot Strength Ankle and Foot Manual Muscle Testing Right Dorsiflexion (L4) 4 Good Plantarflexion (S1) 4- Good- Left Dorsiflexion (L4) 4 Good Plantarflexion (S1) 4- Good- PT-OP-Q Treatments Start: 03/13/19 11:58 Freq: Status: Active Protocol: Document 05/22/19 10:30 DCW (Rec: 05/22/19 11:10 DCW [id number]) Cardio Equipment Recumbent Stepper (Sci-Fit) Duration (Minutes) 5 Resistance 3 Seat Position 8 Therapeutic Exercises Sitting Exercises Hip Abduction Sitting Exercise Name Hip Abduction Side bilateral Resistance Lv 2 Equipment Used T-band Reps/Minutes x20 Marching Sitting Exercise Name Seated Marching Side bilateral Resistance 4# LAQ Sitting Exercise Name LAQ Side bilateral Resistance 4# Other Exercises Side-stepping Other Exercise Name Side-stepping at rail Resistance none Gait Training Gait Activity Stride length Description Step count over specific distance Distance/Duration 20' course Comments # of steps: 13->12->13->13->13 ->14 Gait speed training Description 170' x2 Treatment Focus Increased gait speed, increased stride length Comments 170' time: 124.3 (1.37 ft/sec ); 142.4 (1.19 ft/sec) PT-OP-T Assessment and Plan Start: 03/13/19 11:58 Freq: Status: Active Protocol: Document 05/22/19 10:30 DCW (Rec: 05/22/19 11:10 DCW [id number]) Physical Therapy Assessment Impairments Impairments Activity Tolerance,Balance, Functional Activities, Functional Mobility,Gait, Posture,Strength,Transfers Goals Four Impairment Tinetti Half-Way Goal (LTG) Pt to score at least 20/28 on Tinetti Balance Assessment LTG Duration 05/13/19 Three Impairment LE MMT Half-Way Goal (LTG) PT LE MMT grossly to 4/5 in order to improve balance and activity tolerance LTG Duration 05/13/19 Two Impairment Gait speed of .75 ft/sec during two minute walk test Audit Spec Goal (LTG) Pt gait speed to 1.2 ft/sec (6 MWT distance of 144'). A gait speed of less than 1.97 indicates a greater likelihood of further functional decline in older adults LTG Duration 05/13/19 One Impairment Pt does not have an appropriate home exercise program Short Term Goal (STG) Pt to be independent and compliant with an appropriate HEP STG Duration 04/13/19 Assessment Summary Assessment Pt noticeably fatigued today, required more quick rest breaks, slowed down with her laps and side-stepping. Physical Therapy Plan Frequency and Duration Frequency of Treatment 2x/Week Duration of Treatment 12 weeks Plan of Care Start Date 03/13/19 Plan of Care End Date 06/05/19 Therapeutic Interventions Therapeutic Interventions Aquatic Therapy,Balance Training,Home Exercise Program ,Neuromuscular Re-education, Patient/Caregiver Education, Self-Care/Home Management,Soft Tissue Mobilization, Therapeutic Activities, Therapeutic Exercises Next Visit Focus/Plan Next Note Type Treatment Note Next Visit Plan Strengthening, gait training, gait speed, balance training
--- NOTE | 2019-06-05 13:02 | PT.OTN ---
Current Diagnoses Cerebral infarction, unspecified (06/05/19) Muscle weakness (generalized) (06/05/19) Other abnormalities of gait and mobility (06/05/19) Physical Therapy Treatment Note PT-OP-A Visit Information Start: 03/13/19 11:58 Freq: Status: Active Protocol: Document 06/05/19 12:00 DCW (Rec: 06/05/19 13:02 DCW [id number]) Out-Patient Physical Therapy Visit Information Visit Information Visit Type Progress Note Visit Start Time 12:00 Visit Stop Time 12:45 Total Visit Minutes 45 Visit Number 13 Number of GLOBAL MARKETING INTERN Visits 0 Evaluation Information Evaluation Date 03/13/19 PT-OP-B Current Condition Start: 03/13/19 11:58 Freq: Status: Active Protocol: Document 03/13/19 11:15 DCW (Rec: 03/13/19 12:27 DCW [id number]) Current Condition History of Current Condition Onset Date Multi-year history Current Complaints Fatigue, weakness, imbalance, decreased gait speed History of Current Condition Pt is a 78 year old female well known to this clinic presenting with what she calls a loss of ground following her last round of physical therapy earlier in the year. Pt has a history of 5 separate CVAs, and feels her largest problem is her very slow gait speed, as well as weakness. Her slow gait speed is a long- standing issue which has previously been addressed at physical therapy, and she has shown some improvement, but typically does not perform a lot of HEP following discharge , and typically then regresses . Pt does note she has been working with a monkey trainer in the local pool, and has begun attending gentle yoga classes, as well as a dancing class for people with disabilities. Prior Treatments and Tests Multiple rounds of physical therapy Treatment Goals Patient/Caregiver Goals Improve strengh and gait speed Prior Functional Status Baseline Function- ADL's Needs Assist Baseline Function- Mobility Needs Assist Baseline Function- Gait Very slow gait with bilateral walking sticks PT-OP-C Subjective Start: 03/13/19 11:58 Freq: Status: Active Protocol: Document 06/05/19 12:00 DCW (Rec: 06/05/19 13:02 DCW [id number]) OP-PT Subjective Patient Comments Patient Comments I'm not feeling all that great today. It might not be a good day for a reassessment PT-OP-D Balance Start: 03/13/19 11:58 Freq: Status: Active Protocol: Document 06/05/19 12:00 DCW (Rec: 06/05/19 12:38 DCW [id number]) OP-PT Balance Assessment Sitting Balance Static Sitting Balance Ability Good Dynamic Sitting Balance Ability Good Standing Balance Static Standing Balance Ability Fair Dynamic Standing Balance Ability Fair Tinetti Balance Assessment Sitting Balance Sitting Balance Steady, safe Arising from Chair Ability to Arise Able, uses arms to help Attempts to Arise Arises on 1st attempt Standing Balance Immediate Standing Balance Steady w/o support Standing Balance Narrow stance w/o support Nudged Response Steady Standing with Eyes Closed Steady Turning Step Pattern Turning 360 Degrees Discontinuous steps Stability Turning 360 Degrees Steady Sitting Down Sitting Down Uses arms or unsteady Gait and Step Initiation of Gait No hesitancy Right Foot Step Length Does pass stance foot Right Foot Step Height Does not clear floor Left Foot Step Length Does pass stance foot Left Foot Step Height Does not clear floor Step Description Step Symmetry Step length appears equal Step Continuity Steps appear continuous Gait Description Path Description Mild/moderate deviation Trunk Description No sway but posturing Walking Stance Heels apart Scoring and Interpretation Tinetti Composite Score (points) 20 Interpretation of Scores At risk for falls (19-24) Tinetti Impairment Rating from Composite 20 to <40% Impaired (Score 17- Score 22) Vann Fall Scale Copyright Permission PT-OP-E Functional Tests Start: 03/13/19 11:58 Freq: Status: Active Protocol: Document 06/05/19 12:00 DCW (Rec: 06/05/19 12:38 DCW [id number]) Functional Tests 2 Minute Walk Test Distance 163' Device Used Bilateral walking sticks Comments 1.36 Timed Up and Go (TUG) Score 20.15 Comments 3-trial average (19.38, 22.40, 18.66) TUG Impairment Rating 100% Impaired (Score 20) Tinetti Balance and Gait Assessment Balance Score 13 Gait Score 7 Composite Score 20 Balance Score Impairment Rating 1 to <20% Impaired (Score 13- 15) Gait Score Impairment Rating 40 to <60% Impaired (Score 5-7 ) Composite Score Impairment Rating 20 to <40% Impaired (Score 17- 22) PT-OP-M Strength Start: 03/13/19 11:58 Freq: Status: Active Protocol: Document 06/05/19 12:00 DCW (Rec: 06/05/19 12:38 DCW [id number]) Hip Strength Hip Manual Muscle Testing Right Flexion (L2) 4 Good Abduction 4+ Good+ Adduction 4 Good Left Flexion (L2) 4+ Good+ Abduction 4 Good Adduction 4+ Good+ Knee Strength Knee Manual Muscle Testing Right Flexion (S2) 5 Normal Extension (L3) 4+ Good+ Left Flexion (S2) 4+ Good+ Extension (L3) 4+ Good+ Ankle/Foot Strength Ankle and Foot Manual Muscle Testing Right Dorsiflexion (L4) 4+ Good+ Plantarflexion (S1) 4 Good Left Dorsiflexion (L4) 4 Good Plantarflexion (S1) 4 Good PT-OP-Q Treatments Start: 03/13/19 11:58 Freq: Status: Active Protocol: Document 06/05/19 12:00 DCW (Rec: 06/05/19 13:02 DCW [id number]) Gait Training Gait Activity Gait speed training Description 170' x2 Treatment Focus Increased gait speed, increased stride length Comments 170' time: 126.8 (1.34 ft/sec ); 95.3 (1.78 ft/sec) PT-OP-T Assessment and Plan Start: 03/13/19 11:58 Freq: Status: Active Protocol: Document 06/05/19 12:00 DCW (Rec: 06/05/19 13:02 DCW [id number]) Physical Therapy Assessment Impairments Impairments Activity Tolerance,Balance, Functional Activities, Functional Mobility,Gait, Posture,Strength,Transfers Goals Five Impairment TUG score of 20.15 seconds Skilled Nursing Goal (LTG) Pt to score at least 15 seconds on the TUG LTG Duration 08/05/19 Four Impairment Tinetti Short Term Goal (STG) Pt to score at least 20/28 on Tinetti Balance Assessment STG Duration Met Skilled Nursing Goal (LTG) Pt to score at least 24/28 on Tinetti Balance Assessment LTG Duration 08/05/19 Three Impairment LE MMT Short Term Goal (STG) Pt LE MMT grossly to 4/5 in order to improve balance and activity tolerance STG Duration Met Skilled Nursing Goal (LTG) Pt LE MMT grossly to 4+/5 in order to improve balance and activity tolerance LTG Duration 08/05/19 Two Impairment Gait speed of 1.36 ft/sec during two minute walk test Short Term Goal (STG) Pt gait speed to 1.2 ft/sec (2 MWT distance of 144'). STG Duration Met Sales Account Representative Goal (LTG) Pt gait speed to 1.6 ft/sec (2 MWT distance of 192'). A gait speed of less than 1.97 indicates a greater likelihood of further functional decline in older adults LTG Duration 08/05/19 One Impairment Pt does not have an appropriate home exercise program Short Term Goal (STG) Pt to be independent and compliant with an appropriate HEP STG Duration Met Assessment Summary Assessment Pt has met nearly all goals, advanced gait speed, MMT, and Tinetti score goals. Pt is showing substantial progress, 2 MWT improved from 90' to 163 ', Tinetti score improved 5 points, TUG improved 25 seconds, and general LE strength has improved. Despite pt's large improvements, she is still at a moderate falls risk (20/28 Tinetti and 20+ on TUG). Pt should benefit from skilled therapy for improved balance and gait speed. Physical Therapy Plan Frequency and Duration Frequency of Treatment 2x/Week Duration of Treatment 12 weeks Plan of Care Start Date 06/05/19 Plan of Care End Date 08/26/19 Therapeutic Interventions Therapeutic Interventions Aquatic Therapy,Balance Training,Home Exercise Program ,Neuromuscular Re-education, Patient/Caregiver Education, Self-Care/Home Management,Soft Tissue Mobilization, Therapeutic Activities, Therapeutic Exercises Next Visit Focus/Plan Next Note Type Treatment Note Next Visit Plan Strengthening, gait training, gait speed, balance training
--- NOTE | 2019-06-07 09:44 | PT.OTN ---
Current Diagnoses Cerebral infarction, unspecified (06/07/19) Muscle weakness (generalized) (06/07/19) Other abnormalities of gait and mobility (06/07/19) Physical Therapy Treatment Note PT-OP-A Visit Information Start: 03/13/19 11:58 Freq: Status: Active Protocol: Document 06/07/19 09:00 DCW (Rec: 06/07/19 09:44 DCW [id number]) Out-Patient Physical Therapy Visit Information Visit Information Visit Type Treatment Note Visit Start Time 09:00 Visit Stop Time 09:45 Total Visit Minutes 45 Visit Number 14 Number of STATE [employer] AGENT TEAM MEMBER Visits 0 Evaluation Information Evaluation Date 03/13/19 PT-OP-B Current Condition Start: 03/13/19 11:58 Freq: Status: Active Protocol: Document 03/13/19 11:15 DCW (Rec: 03/13/19 12:27 DCW [id number]) Current Condition History of Current Condition Onset Date Multi-year history Current Complaints Fatigue, weakness, imbalance, decreased gait speed History of Current Condition Pt is a 78 year old female well known to this clinic presenting with what she calls a loss of ground following her last round of physical therapy earlier in the year. Pt has a history of 5 separate CVAs, and feels her largest problem is her very slow gait speed, as well as weakness. Her slow gait speed is a long- standing issue which has previously been addressed at physical therapy, and she has shown some improvement, but typically does not perform a lot of HEP following discharge , and typically then regresses . Pt does note she has been working with a ultimate hoops trainer in the local pool, and has begun attending gentle yoga classes, as well as a dancing class for people with disabilities. Prior Treatments and Tests Multiple rounds of physical therapy Treatment Goals Patient/Caregiver Goals Improve strengh and gait speed Prior Functional Status Baseline Function- ADL's Needs Assist Baseline Function- Mobility Needs Assist Baseline Function- Gait Very slow gait with bilateral walking sticks PT-OP-C Subjective Start: 03/13/19 11:58 Freq: Status: Active Protocol: Document 06/07/19 09:00 DCW (Rec: 06/07/19 09:44 DCW [id number]) OP-PT Subjective Patient Comments Patient Comments Pt is in very good spirits today. PT-OP-D Balance Start: 03/13/19 11:58 Freq: Status: Active Protocol: Document 06/05/19 12:00 DCW (Rec: 06/05/19 12:38 DCW [id number]) OP-PT Balance Assessment Sitting Balance Static Sitting Balance Ability Good Dynamic Sitting Balance Ability Good Standing Balance Static Standing Balance Ability Fair Dynamic Standing Balance Ability Fair Tinetti Balance Assessment Sitting Balance Sitting Balance Steady, safe Arising from Chair Ability to Arise Able, uses arms to help Attempts to Arise Arises on 1st attempt Standing Balance Immediate Standing Balance Steady w/o support Standing Balance Narrow stance w/o support Nudged Response Steady Standing with Eyes Closed Steady Turning Step Pattern Turning 360 Degrees Discontinuous steps Stability Turning 360 Degrees Steady Sitting Down Sitting Down Uses arms or unsteady Gait and Step Initiation of Gait No hesitancy Right Foot Step Length Does pass stance foot Right Foot Step Height Does not clear floor Left Foot Step Length Does pass stance foot Left Foot Step Height Does not clear floor Step Description Step Symmetry Step length appears equal Step Continuity Steps appear continuous Gait Description Path Description Mild/moderate deviation Trunk Description No sway but posturing Walking Stance Heels apart Scoring and Interpretation Tinetti Composite Score (points) 20 Interpretation of Scores At risk for falls (19-24) Tinetti Impairment Rating from Composite 20 to <40% Impaired (Score 17- Score 22) Vann Fall Scale Copyright Permission PT-OP-E Functional Tests Start: 03/13/19 11:58 Freq: Status: Active Protocol: Document 06/05/19 12:00 DCW (Rec: 06/05/19 12:38 DCW [id number]) Functional Tests 2 Minute Walk Test Distance 163' Device Used Bilateral walking sticks Comments 1.36 Timed Up and Go (TUG) Score 20.15 Comments 3-trial average (19.38, 22.40, 18.66) TUG Impairment Rating 100% Impaired (Score 20) Tinetti Balance and Gait Assessment Balance Score 13 Gait Score 7 Composite Score 20 Balance Score Impairment Rating 1 to <20% Impaired (Score 13- 15) Gait Score Impairment Rating 40 to <60% Impaired (Score 5-7 ) Composite Score Impairment Rating 20 to <40% Impaired (Score 17- 22) PT-OP-M Strength Start: 03/13/19 11:58 Freq: Status: Active Protocol: Document 06/05/19 12:00 DCW (Rec: 06/05/19 12:38 DCW [id number]) Hip Strength Hip Manual Muscle Testing Right Flexion (L2) 4 Good Abduction 4+ Good+ Adduction 4 Good Left Flexion (L2) 4+ Good+ Abduction 4 Good Adduction 4+ Good+ Knee Strength Knee Manual Muscle Testing Right Flexion (S2) 5 Normal Extension (L3) 4+ Good+ Left Flexion (S2) 4+ Good+ Extension (L3) 4+ Good+ Ankle/Foot Strength Ankle and Foot Manual Muscle Testing Right Dorsiflexion (L4) 4+ Good+ Plantarflexion (S1) 4 Good Left Dorsiflexion (L4) 4 Good Plantarflexion (S1) 4 Good PT-OP-Q Treatments Start: 03/13/19 11:58 Freq: Status: Active Protocol: Document 06/07/19 09:00 DCW (Rec: 06/07/19 09:44 DCW [id number]) Cardio Equipment Recumbent Elliptical (Biodex) Duration (Minutes) 5 Resistance 5 Seat Position 8 Therapeutic Exercises Other Exercises Retro Ambulation Other Exercise Name Retro Ambulation Equipment Used // bars Side-stepping Other Exercise Name Side-stepping at rail Resistance none Equipment Used // bars Gait Training Gait Activity Stride length Description Step count over specific distance Distance/Duration 20' course Comments # of steps: 13->14->12->12->13 ->12 Gait speed training Description 170' x2 Treatment Focus Increased gait speed, increased stride length Comments 170' time: 109.4 (1.55 ft/sec ); 100.8 (1.69 ft/sec) Neuro Re-Education Treatment Balance Activities Foam Stance Details Double leg stance on foam Surface Silva foam Comments EO/EC PT-OP-T Assessment and Plan Start: 03/13/19 11:58 Freq: Status: Active Protocol: Document 06/07/19 09:00 DCW (Rec: 06/07/19 09:44 [facility] [id number]) Physical Therapy Assessment Impairments Impairments Activity Tolerance,Balance, Functional Activities, Functional Mobility,Gait, Posture,Strength,Transfers Goals Five Impairment TUG score of 20.15 seconds Electric Sign Wirer Goal (LTG) Pt to score at least 15 seconds on the TUG LTG Duration 08/05/19 Four Impairment Tinetti Short Term Goal (STG) Pt to score at least 20/28 on Tinetti Balance Assessment STG Duration Met Electric Sign Wirer Goal (LTG) Pt to score at least 24/28 on Tinetti Balance Assessment LTG Duration 08/05/19 Three Impairment LE MMT Short Term Goal (STG) Pt LE MMT grossly to 4/5 in order to improve balance and activity tolerance STG Duration Met Fpc Goal (LTG) Pt LE MMT grossly to 4+/5 in order to improve balance and activity tolerance LTG Duration 08/05/19 Two Impairment Gait speed of 1.36 ft/sec during two minute walk test Short Term Goal (STG) Pt gait speed to 1.2 ft/sec (2 MWT distance of 144'). STG Duration Met Electric Sign Wirer Goal (LTG) Pt gait speed to 1.6 ft/sec (2 MWT distance of 192'). A gait speed of less than 1.97 indicates a greater likelihood of further functional decline in older adults LTG Duration 08/05/19 One Impairment Pt does not have an appropriate home exercise program Short Term Goal (STG) Pt to be independent and compliant with an appropriate HEP STG Duration Met Assessment Summary Assessment Pt did very well once again today, had two of her fastest lap times. Pt appears to be improving in all areas, also appears to be improving with standing balance on foam, improved ankle strategies. Physical Therapy Plan Frequency and Duration Frequency of Treatment 2x/Week Duration of Treatment 12 weeks Plan of Care Start Date 06/05/19 Plan of Care End Date 08/26/19 Therapeutic Interventions Therapeutic Interventions Aquatic Therapy,Balance Training,Home Exercise Program ,Neuromuscular Re-education, Patient/Caregiver Education, Self-Care/Home Management,Soft Tissue Mobilization, Therapeutic Activities, Therapeutic Exercises Next Visit Focus/Plan Next Note Type Treatment Note Next Visit Plan Strengthening, gait training, gait speed, balance training
--- NOTE | 2019-06-11 11:17 | PT.OTN ---
Current Diagnoses Cerebral infarction, unspecified (06/11/19) Muscle weakness (generalized) (06/11/19) Other abnormalities of gait and mobility (06/11/19) Physical Therapy Treatment Note PT-OP-A Visit Information Start: 03/13/19 11:58 Freq: Status: Active Protocol: Document 06/11/19 10:30 DCW (Rec: 06/11/19 11:17 DCW [id number]) Out-Patient Physical Therapy Visit Information Visit Information Visit Type Treatment Note Visit Start Time 10:30 Visit Stop Time 11:15 Total Visit Minutes 45 Visit Number 15 Number of DRY ROOM ATTENDANT Visits 0 Evaluation Information Evaluation Date 03/13/19 PT-OP-B Current Condition Start: 03/13/19 11:58 Freq: Status: Active Protocol: Document 03/13/19 11:15 DCW (Rec: 03/13/19 12:27 DCW [id number]) Current Condition History of Current Condition Onset Date Multi-year history Current Complaints Fatigue, weakness, imbalance, decreased gait speed History of Current Condition Pt is a 78 year old female well known to this clinic presenting with what she calls a loss of ground following her last round of physical therapy earlier in the year. Pt has a history of 5 separate CVAs, and feels her largest problem is her very slow gait speed, as well as weakness. Her slow gait speed is a long- standing issue which has previously been addressed at physical therapy, and she has shown some improvement, but typically does not perform a lot of HEP following discharge , and typically then regresses . Pt does note she has been working with a education trainer in the local pool, and has begun attending gentle yoga classes, as well as a dancing class for people with disabilities. Prior Treatments and Tests Multiple rounds of physical therapy Treatment Goals Patient/Caregiver Goals Improve strengh and gait speed Prior Functional Status Baseline Function- ADL's Needs Assist Baseline Function- Mobility Needs Assist Baseline Function- Gait Very slow gait with bilateral walking sticks PT-OP-C Subjective Start: 03/13/19 11:58 Freq: Status: Active Protocol: Document 06/11/19 10:30 DCW (Rec: 06/11/19 11:17 DCW [id number]) OP-PT Subjective Patient Comments Patient Comments I've had a good morning so far, but I just woke up at 9: 30, so there hasn't been much of a morning yet. PT-OP-D Balance Start: 03/13/19 11:58 Freq: Status: Active Protocol: Document 06/05/19 12:00 DCW (Rec: 06/05/19 12:38 DCW [id number]) OP-PT Balance Assessment Sitting Balance Static Sitting Balance Ability Good Dynamic Sitting Balance Ability Good Standing Balance Static Standing Balance Ability Fair Dynamic Standing Balance Ability Fair Tinetti Balance Assessment Sitting Balance Sitting Balance Steady, safe Arising from Chair Ability to Arise Able, uses arms to help Attempts to Arise Arises on 1st attempt Standing Balance Immediate Standing Balance Steady w/o support Standing Balance Narrow stance w/o support Nudged Response Steady Standing with Eyes Closed Steady Turning Step Pattern Turning 360 Degrees Discontinuous steps Stability Turning 360 Degrees Steady Sitting Down Sitting Down Uses arms or unsteady Gait and Step Initiation of Gait No hesitancy Right Foot Step Length Does pass stance foot Right Foot Step Height Does not clear floor Left Foot Step Length Does pass stance foot Left Foot Step Height Does not clear floor Step Description Step Symmetry Step length appears equal Step Continuity Steps appear continuous Gait Description Path Description Mild/moderate deviation Trunk Description No sway but posturing Walking Stance Heels apart Scoring and Interpretation Tinetti Composite Score (points) 20 Interpretation of Scores At risk for falls (19-24) Tinetti Impairment Rating from Composite 20 to <40% Impaired (Score 17- Score 22) Vann Fall Scale Copyright Permission PT-OP-E Functional Tests Start: 03/13/19 11:58 Freq: Status: Active Protocol: Document 06/05/19 12:00 DCW (Rec: 06/05/19 12:38 DCW [id number]) Functional Tests 2 Minute Walk Test Distance 163' Device Used Bilateral walking sticks Comments 1.36 Timed Up and Go (TUG) Score 20.15 Comments 3-trial average (19.38, 22.40, 18.66) TUG Impairment Rating 100% Impaired (Score 20) Tinetti Balance and Gait Assessment Balance Score 13 Gait Score 7 Composite Score 20 Balance Score Impairment Rating 1 to <20% Impaired (Score 13- 15) Gait Score Impairment Rating 40 to <60% Impaired (Score 5-7 ) Composite Score Impairment Rating 20 to <40% Impaired (Score 17- 22) PT-OP-M Strength Start: 03/13/19 11:58 Freq: Status: Active Protocol: Document 06/05/19 12:00 DCW (Rec: 06/05/19 12:38 DCW [id number]) Hip Strength Hip Manual Muscle Testing Right Flexion (L2) 4 Good Abduction 4+ Good+ Adduction 4 Good Left Flexion (L2) 4+ Good+ Abduction 4 Good Adduction 4+ Good+ Knee Strength Knee Manual Muscle Testing Right Flexion (S2) 5 Normal Extension (L3) 4+ Good+ Left Flexion (S2) 4+ Good+ Extension (L3) 4+ Good+ Ankle/Foot Strength Ankle and Foot Manual Muscle Testing Right Dorsiflexion (L4) 4+ Good+ Plantarflexion (S1) 4 Good Left Dorsiflexion (L4) 4 Good Plantarflexion (S1) 4 Good PT-OP-Q Treatments Start: 03/13/19 11:58 Freq: Status: Active Protocol: Document 06/11/19 10:30 DCW (Rec: 06/11/19 11:17 DCW [id number]) Therapeutic Exercises Other Exercises Retro Ambulation Other Exercise Name Retro Ambulation Equipment Used // bars Side-stepping Other Exercise Name Side-stepping at rail Resistance none Equipment Used // bars Gait Training Gait Activity Stride length Description Step count over specific distance Distance/Duration 20' course Comments # of steps: 12->13->12->12->11 ->12 Gait speed training Description 170' x2 Treatment Focus Increased gait speed, increased stride length Comments 170' time: 104.5 (1.63 ft/sec ); 99.1 (1.72 ft/sec) Neuro Re-Education Treatment Balance Activities Foam Stance Details Double leg stance on foam Surface Silva foam Comments EO/EC, Head turns Semi-tandem Stance Details Tandem PT-OP-T Assessment and Plan Start: 03/13/19 11:58 Freq: Status: Active Protocol: Document 06/11/19 10:30 DCW (Rec: 06/11/19 11:17 DCW [id number]) Physical Therapy Assessment Impairments Impairments Activity Tolerance,Balance, Functional Activities, Functional Mobility,Gait, Posture,Strength,Transfers Goals Five Impairment TUG score of 20.15 seconds Coder Goal (LTG) Pt to score at least 15 seconds on the TUG LTG Duration 08/05/19 Four Impairment Tinetti Short Term Goal (STG) Pt to score at least 20/28 on Tinetti Balance Assessment STG Duration Met Coder Goal (LTG) Pt to score at least 24/28 on Tinetti Balance Assessment LTG Duration 08/05/19 Three Impairment LE MMT Short Term Goal (STG) Pt LE MMT grossly to 4/5 in order to improve balance and activity tolerance STG Duration Met Coder Goal (LTG) Pt LE MMT grossly to 4+/5 in order to improve balance and activity tolerance LTG Duration 08/05/19 Two Impairment Gait speed of 1.36 ft/sec during two minute walk test Short Term Goal (STG) Pt gait speed to 1.2 ft/sec (2 MWT distance of 144'). STG Duration Met Coder Goal (LTG) Pt gait speed to 1.6 ft/sec (2 MWT distance of 192'). A gait speed of less than 1.97 indicates a greater likelihood of further functional decline in older adults LTG Duration 08/05/19 One Impairment Pt does not have an appropriate home exercise program Short Term Goal (STG) Pt to be independent and compliant with an appropriate HEP STG Duration Met Assessment Summary Assessment Pt had potentially her best overall day in therapy ever. Pt had an excellent day with ambulation, both 170' laps well below two minutes, and pt was taking large steps with a fairly consistent art. Physical Therapy Plan Frequency and Duration Frequency of Treatment 2x/Week Duration of Treatment 12 weeks Plan of Care Start Date 06/05/19 Plan of Care End Date 08/26/19 Therapeutic Interventions Therapeutic Interventions Aquatic Therapy,Balance Training,Home Exercise Program ,Neuromuscular Re-education, Patient/Caregiver Education, Self-Care/Home Management,Soft Tissue Mobilization, Therapeutic Activities, Therapeutic Exercises Next Visit Focus/Plan Next Note Type Treatment Note Next Visit Plan Strengthening, gait training, gait speed, balance training
--- NOTE | 2019-06-18 11:15 | PT.OTN ---
Current Diagnoses Cerebral infarction, unspecified (06/18/19) Muscle weakness (generalized) (06/18/19) Other abnormalities of gait and mobility (06/18/19) Physical Therapy Treatment Note PT-OP-A Visit Information Start: 03/13/19 11:58 Freq: Status: Active Protocol: Document 06/18/19 10:30 DCW (Rec: 06/18/19 11:15 DCW [id number]) Out-Patient Physical Therapy Visit Information Visit Information Visit Type Treatment Note Visit Start Time 10:30 Visit Stop Time 11:15 Total Visit Minutes 45 Visit Number 16 Number of CORE STICKER Visits 0 Evaluation Information Evaluation Date 03/13/19 PT-OP-B Current Condition Start: 03/13/19 11:58 Freq: Status: Active Protocol: Document 03/13/19 11:15 DCW (Rec: 03/13/19 12:27 DCW [id number]) Current Condition History of Current Condition Onset Date Multi-year history Current Complaints Fatigue, weakness, imbalance, decreased gait speed History of Current Condition Pt is a 78 year old female well known to this clinic presenting with what she calls a loss of ground following her last round of physical therapy earlier in the year. Pt has a history of 5 separate CVAs, and feels her largest problem is her very slow gait speed, as well as weakness. Her slow gait speed is a long- standing issue which has previously been addressed at physical therapy, and she has shown some improvement, but typically does not perform a lot of HEP following discharge , and typically then regresses . 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 Prior Treatments and Tests Multiple rounds of physical therapy Treatment Goals Patient/Caregiver Goals Improve strengh and gait speed Prior Functional Status Baseline Function- ADL's Needs Assist Baseline Function- Mobility Needs Assist Baseline Function- Gait Very slow gait with bilateral walking sticks PT-OP-C Subjective Start: 03/13/19 11:58 Freq: Status: Active Protocol: Document 06/18/19 10:30 DCW (Rec: 06/18/19 11:15 DCW [id number]) OP-PT Subjective Patient Comments Patient Comments Pt reports she is doing well this morning PT-OP-D Balance Start: 03/13/19 11:58 Freq: Status: Active Protocol: Document 06/05/19 12:00 DCW (Rec: 06/05/19 12:38 DCW [id number]) OP-PT Balance Assessment Sitting Balance Static Sitting Balance Ability Good Dynamic Sitting Balance Ability Good Standing Balance Static Standing Balance Ability Fair Dynamic Standing Balance Ability Fair Tinetti Balance Assessment Sitting Balance Sitting Balance Steady, safe Arising from Chair Ability to Arise Able, uses arms to help Attempts to Arise Arises on 1st attempt Standing Balance Immediate Standing Balance Steady w/o support Standing Balance Narrow stance w/o support Nudged Response Steady Standing with Eyes Closed Steady Turning Step Pattern Turning 360 Degrees Discontinuous steps Stability Turning 360 Degrees Steady Sitting Down Sitting Down Uses arms or unsteady Gait and Step Initiation of Gait No hesitancy Right Foot Step Length Does pass stance foot Right Foot Step Height Does not clear floor Left Foot Step Length Does pass stance foot Left Foot Step Height Does not clear floor Step Description Step Symmetry Step length appears equal Step Continuity Steps appear continuous Gait Description Path Description Mild/moderate deviation Trunk Description No sway but posturing Walking Stance Heels apart Scoring and Interpretation Tinetti Composite Score (points) 20 Interpretation of Scores At risk for falls (19-24) Tinetti Impairment Rating from Composite 20 to <40% Impaired (Score 17- Score 22) Vann Fall Scale Copyright Permission PT-OP-E Functional Tests Start: 03/13/19 11:58 Freq: Status: Active Protocol: Document 06/05/19 12:00 DCW (Rec: 06/05/19 12:38 DCW [id number]) Functional Tests 2 Minute Walk Test Distance 163' Device Used Bilateral walking sticks Comments 1.36 Timed Up and Go (TUG) Score 20.15 Comments 3-trial average (19.38, 22.40, 18.66) TUG Impairment Rating 100% Impaired (Score 20) Tinetti Balance and Gait Assessment Balance Score 13 Gait Score 7 Composite Score 20 Balance Score Impairment Rating 1 to <20% Impaired (Score 13- 15) Gait Score Impairment Rating 40 to <60% Impaired (Score 5-7 ) Composite Score Impairment Rating 20 to <40% Impaired (Score 17- 22) PT-OP-M Strength Start: 03/13/19 11:58 Freq: Status: Active Protocol: Document 06/05/19 12:00 DCW (Rec: 06/05/19 12:38 DCW [id number]) Hip Strength Hip Manual Muscle Testing Right Flexion (L2) 4 Good Abduction 4+ Good+ Adduction 4 Good Left Flexion (L2) 4+ Good+ Abduction 4 Good Adduction 4+ Good+ Knee Strength Knee Manual Muscle Testing Right Flexion (S2) 5 Normal Extension (L3) 4+ Good+ Left Flexion (S2) 4+ Good+ Extension (L3) 4+ Good+ Ankle/Foot Strength Ankle and Foot Manual Muscle Testing Right Dorsiflexion (L4) 4+ Good+ Plantarflexion (S1) 4 Good Left Dorsiflexion (L4) 4 Good Plantarflexion (S1) 4 Good PT-OP-Q Treatments Start: 03/13/19 11:58 Freq: Status: Active Protocol: Document 06/18/19 10:30 DCW (Rec: 06/18/19 11:15 DCW [id number]) Cardio Equipment Recumbent Elliptical (Biodex) Duration (Minutes) 5 Resistance 5 Seat Position 8 Therapeutic Exercises Other Exercises Retro Ambulation Other Exercise Name Retro Ambulation Equipment Used // bars Side-stepping Other Exercise Name Side-stepping at rail Resistance none Equipment Used // bars Gait Training Gait Activity Stride length Description Step count over specific distance Distance/Duration 20' course Comments # of steps: 13->14->13->13->13 ->12 Gait speed training Description 170' x2 Treatment Focus Increased gait speed, increased stride length Comments 170' time: 122.7 (1.39 ft/sec ); 229.0 (1.32 ft/sec) Neuro Re-Education Treatment Balance Activities Foam Stance Details Double leg stance on foam Surface Sliva foam Comments EO/EC, Head turns Semi-tandem Stance Details Tandem PT-OP-T Assessment and Plan Start: 03/13/19 11:58 Freq: Status: Active Protocol: Document 06/18/19 10:30 DCW (Rec: 06/18/19 11:15 DCW [id number]) Physical Therapy Assessment Impairments Impairments Activity Tolerance,Balance, Functional Activities, Functional Mobility,Gait, Posture,Strength,Transfers Goals Five Impairment TUG score of 20.15 seconds Director [employer] Goal (LTG) Pt to score at least 15 seconds on the TUG LTG Duration 08/05/19 Four Impairment Tinetti Short Term Goal (STG) Pt to score at least 20/28 on Tinetti Balance Assessment STG Duration Met Halfway Goal (LTG) Pt to score at least 24/28 on Tinetti Balance Assessment LTG Duration 08/05/19 Three Impairment LE MMT Short Term Goal (STG) Pt LE MMT grossly to 4/5 in order to improve balance and activity tolerance STG Duration Met [employer] Goal (LTG) Pt LE MMT grossly to 4+/5 in order to improve balance and activity tolerance LTG Duration 08/05/19 Two Impairment Gait speed of 1.36 ft/sec during two minute walk test Short Term Goal (STG) Pt gait speed to 1.2 ft/sec (2 MWT distance of 144'). STG Duration Met [employer] Goal (LTG) Pt gait speed to 1.6 ft/sec (2 MWT distance of 192'). A gait speed of less than 1.97 indicates a greater likelihood of further functional decline in older adults LTG Duration 08/05/19 One Impairment Pt does not have an appropriate home exercise program Short Term Goal (STG) Pt to be independent and compliant with an appropriate HEP STG Duration Met Assessment Summary Assessment Pt began today's session well, able to stand up from the waiting room and take large, relatively quick steps back to the gym, however she then quickly ran out of steam, slowing down for her gait training and struggling to keep up energy for her exercise. Physical Therapy Plan Frequency and Duration Frequency of Treatment 2x/Week Duration of Treatment 12 weeks Plan of Care Start Date 06/05/19 Plan of Care End Date 08/26/19 Therapeutic Interventions Therapeutic Interventions Aquatic Therapy,Balance Training,Home Exercise Program ,Neuromuscular Re-education, Patient/Caregiver Education, Self-Care/Home Management,Soft Tissue Mobilization, Therapeutic Activities, Therapeutic Exercises Next Visit Focus/Plan Next Note Type Treatment Note Next Visit Plan Strengthening, gait training, gait speed, balance training
--- NOTE | 2019-06-20 11:15 | PT.OTN ---
Current Diagnoses Cerebral infarction, unspecified (06/20/19) Muscle weakness (generalized) (06/20/19) Other abnormalities of gait and mobility (06/20/19) Physical Therapy Treatment Note PT-OP-A Visit Information Start: 03/13/19 11:58 Freq: Status: Active Protocol: Document 06/20/19 10:30 DCW (Rec: 06/20/19 11:15 DCW [id number]) Out-Patient Physical Therapy Visit Information Visit Information Visit Type Treatment Note Visit Start Time 10:30 Visit Stop Time 11:15 Total Visit Minutes 45 Visit Number 17 Number of TABLE MAKER Visits 0 Evaluation Information Evaluation Date 03/13/19 PT-OP-B Current Condition Start: 03/13/19 11:58 Freq: Status: Active Protocol: Document 03/13/19 11:15 DCW (Rec: 03/13/19 12:27 DCW [id number]) Current Condition History of Current Condition Onset Date Multi-year history Current Complaints Fatigue, weakness, imbalance, decreased gait speed History of Current Condition Pt is a 78 year old female well known to this clinic presenting with what she calls a loss of ground following her last round of physical therapy earlier in the year. Pt has a history of 5 separate CVAs, and feels her largest problem is her very slow gait speed, as well as weakness. Her slow gait speed is a long- standing issue which has previously been addressed at physical therapy, and she has shown some improvement, but typically does not perform a lot of HEP following discharge , and typically then regresses . 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 Prior Treatments and Tests Multiple rounds of physical therapy Treatment Goals Patient/Caregiver Goals Improve strengh and gait speed Prior Functional Status Baseline Function- ADL's Needs Assist Baseline Function- Mobility Needs Assist Baseline Function- Gait Very slow gait with bilateral walking sticks PT-OP-C Subjective Start: 03/13/19 11:58 Freq: Status: Active Protocol: Document 06/20/19 10:30 DCW (Rec: 06/20/19 11:15 DCW [id number]) OP-PT Subjective Patient Comments Patient Comments Pt is okay today, admits she is moving a little slower. PT-OP-D Balance Start: 03/13/19 11:58 Freq: Status: Active Protocol: Document 06/05/19 12:00 DCW (Rec: 06/05/19 12:38 DCW [id number]) OP-PT Balance Assessment Sitting Balance Static Sitting Balance Ability Good Dynamic Sitting Balance Ability Good Standing Balance Static Standing Balance Ability Fair Dynamic Standing Balance Ability Fair Tinetti Balance Assessment Sitting Balance Sitting Balance Steady, safe Arising from Chair Ability to Arise Able, uses arms to help Attempts to Arise Arises on 1st attempt Standing Balance Immediate Standing Balance Steady w/o support Standing Balance Narrow stance w/o support Nudged Response Steady Standing with Eyes Closed Steady Turning Step Pattern Turning 360 Degrees Discontinuous steps Stability Turning 360 Degrees Steady Sitting Down Sitting Down Uses arms or unsteady Gait and Step Initiation of Gait No hesitancy Right Foot Step Length Does pass stance foot Right Foot Step Height Does not clear floor Left Foot Step Length Does pass stance foot Left Foot Step Height Does not clear floor Step Description Step Symmetry Step length appears equal Step Continuity Steps appear continuous Gait Description Path Description Mild/moderate deviation Trunk Description No sway but posturing Walking Stance Heels apart Scoring and Interpretation Tinetti Composite Score (points) 20 Interpretation of Scores At risk for falls (19-24) Tinetti Impairment Rating from Composite 20 to <40% Impaired (Score 17- Score 22) Vann Fall Scale Copyright Permission PT-OP-E Functional Tests Start: 03/13/19 11:58 Freq: Status: Active Protocol: Document 06/05/19 12:00 DCW (Rec: 06/05/19 12:38 DCW [id number]) Functional Tests 2 Minute Walk Test Distance 163' Device Used Bilateral walking sticks Comments 1.36 Timed Up and Go (TUG) Score 20.15 Comments 3-trial average (19.38, 22.40, 18.66) TUG Impairment Rating 100% Impaired (Score 20) Tinetti Balance and Gait Assessment Balance Score 13 Gait Score 7 Composite Score 20 Balance Score Impairment Rating 1 to <20% Impaired (Score 13- 15) Gait Score Impairment Rating 40 to <60% Impaired (Score 5-7 ) Composite Score Impairment Rating 20 to <40% Impaired (Score 17- 22) PT-OP-M Strength Start: 03/13/19 11:58 Freq: Status: Active Protocol: Document 06/05/19 12:00 DCW (Rec: 06/05/19 12:38 DCW [id number]) Hip Strength Hip Manual Muscle Testing Right Flexion (L2) 4 Good Abduction 4+ Good+ Adduction 4 Good Left Flexion (L2) 4+ Good+ Abduction 4 Good Adduction 4+ Good+ Knee Strength Knee Manual Muscle Testing Right Flexion (S2) 5 Normal Extension (L3) 4+ Good+ Left Flexion (S2) 4+ Good+ Extension (L3) 4+ Good+ Ankle/Foot Strength Ankle and Foot Manual Muscle Testing Right Dorsiflexion (L4) 4+ Good+ Plantarflexion (S1) 4 Good Left Dorsiflexion (L4) 4 Good Plantarflexion (S1) 4 Good PT-OP-Q Treatments Start: 03/13/19 11:58 Freq: Status: Active Protocol: Document 06/20/19 10:30 DCW (Rec: 06/20/19 11:15 DCW [id number]) Gym Equipment Shuttle Balance Blue Details Wide EMELY (EO/EC), Staggered Stance Therapeutic Exercises Other Exercises Retro Ambulation Other Exercise Name Retro Ambulation Equipment Used // bars Side-stepping Other Exercise Name Side-stepping at rail Resistance none Equipment Used // bars Gait Training Gait Activity Stride length Description Step count over specific distance Distance/Duration 20' course Comments # of steps: 13->12->12->13->11 ->12 Gait speed training Description 170' x2 Treatment Focus Increased gait speed, increased stride length Comments 170' time: 130.83 (1.30 ft/ sec); 126.0 (1.35 ft/sec) Neuro Re-Education Treatment Balance Activities Foam Stance Details Double leg stance on foam Surface Silva foam Comments EO/EC, Head turns PT-OP-T Assessment and Plan Start: 03/13/19 11:58 Freq: Status: Active Protocol: Document 06/20/19 10:30 DCW (Rec: 06/20/19 11:15 DCW [id number]) Physical Therapy Assessment Impairments Impairments Activity Tolerance,Balance, Functional Activities, Functional Mobility,Gait, Posture,Strength,Transfers Goals Five Impairment TUG score of 20.15 seconds Alf Goal (LTG) Pt to score at least 15 seconds on the TUG LTG Duration 08/05/19 Four Impairment Tinetti Short Term Goal (STG) Pt to score at least 20/28 on Tinetti Balance Assessment STG Duration Met Electric Power Superintendent Goal (LTG) Pt to score at least 24/28 on Tinetti Balance Assessment LTG Duration 08/05/19 Three Impairment LE MMT Short Term Goal (STG) Pt LE MMT grossly to 4/5 in order to improve balance and activity tolerance STG Duration Met Electric Power Superintendent Goal (LTG) Pt LE MMT grossly to 4+/5 in order to improve balance and activity tolerance LTG Duration 08/05/19 Two Impairment Gait speed of 1.36 ft/sec during two minute walk test Short Term Goal (STG) Pt gait speed to 1.2 ft/sec (2 MWT distance of 144'). STG Duration Met Alf Goal (LTG) Pt gait speed to 1.6 ft/sec (2 MWT distance of 192'). A gait speed of less than 1.97 indicates a greater likelihood of further functional decline in older adults LTG Duration 08/05/19 One Impairment Pt does not have an appropriate home exercise program Short Term Goal (STG) Pt to be independent and compliant with an appropriate HEP STG Duration Met Assessment Summary Assessment Pt performed decently well today, did not do as well as what she had been the past month, but did better than other visits as well. Pt required fewer rest breaks today, demonstrating improved activity tolerance. Physical Therapy Plan Frequency and Duration Frequency of Treatment 2x/Week Duration of Treatment 12 weeks Plan of Care Start Date 06/05/19 Plan of Care End Date 08/26/19 Therapeutic Interventions Therapeutic Interventions Aquatic Therapy,Balance Training,Home Exercise Program ,Neuromuscular Re-education, Patient/Caregiver Education, Self-Care/Home Management,Soft Tissue Mobilization, Therapeutic Activities, Therapeutic Exercises Next Visit Focus/Plan Next Note Type Treatment Note Next Visit Plan Strengthening, gait training, gait speed, balance training
--- NOTE | 2019-06-24 11:13 | PT.OTN ---
Current Diagnoses Cerebral infarction, unspecified (06/24/19) Muscle weakness (generalized) (06/24/19) Other abnormalities of gait and mobility (06/24/19) Physical Therapy Treatment Note PT-OP-A Visit Information Start: 03/13/19 11:58 Freq: Status: Active Protocol: Document 06/24/19 10:30 DCW (Rec: 06/24/19 11:13 DCW [id number]) Out-Patient Physical Therapy Visit Information Visit Information Visit Type Treatment Note Visit Start Time 10:30 Visit Stop Time 11:15 Total Visit Minutes 45 Visit Number 18 Number of SHREDDER TENDER PEAT Visits 0 Evaluation Information Evaluation Date 03/13/19 PT-OP-B Current Condition Start: 03/13/19 11:58 Freq: Status: Active Protocol: Document 03/13/19 11:15 DCW (Rec: 03/13/19 12:27 DCW [id number]) Current Condition History of Current Condition Onset Date Multi-year history Current Complaints Fatigue, weakness, imbalance, decreased gait speed History of Current Condition Pt is a 78 year old female well known to this clinic presenting with what she calls a loss of ground following her last round of physical therapy earlier in the year. Pt has a history of 5 separate CVAs, and feels her largest problem is her very slow gait speed, as well as weakness. Her slow gait speed is a long- standing issue which has previously been addressed at physical therapy, and she has shown some improvement, but typically does not perform a lot of HEP following discharge , and typically then regresses . 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 Prior Treatments and Tests Multiple rounds of physical therapy Treatment Goals Patient/Caregiver Goals Improve strengh and gait speed Prior Functional Status Baseline Function- ADL's Needs Assist Baseline Function- Mobility Needs Assist Baseline Function- Gait Very slow gait with bilateral walking sticks PT-OP-C Subjective Start: 03/13/19 11:58 Freq: Status: Active Protocol: Document 06/24/19 10:30 DCW (Rec: 06/24/19 11:13 DCW [id number]) OP-PT Subjective Patient Comments Patient Comments Pt reports she is tired and moving slowly today. PT-OP-D Balance Start: 03/13/19 11:58 Freq: Status: Active Protocol: Document 06/05/19 12:00 DCW (Rec: 06/05/19 12:38 DCW [id number]) OP-PT Balance Assessment Sitting Balance Static Sitting Balance Ability Good Dynamic Sitting Balance Ability Good Standing Balance Static Standing Balance Ability Fair Dynamic Standing Balance Ability Fair Tinetti Balance Assessment Sitting Balance Sitting Balance Steady, safe Arising from Chair Ability to Arise Able, uses arms to help Attempts to Arise Arises on 1st attempt Standing Balance Immediate Standing Balance Steady w/o support Standing Balance Narrow stance w/o support Nudged Response Steady Standing with Eyes Closed Steady Turning Step Pattern Turning 360 Degrees Discontinuous steps Stability Turning 360 Degrees Steady Sitting Down Sitting Down Uses arms or unsteady Gait and Step Initiation of Gait No hesitancy Right Foot Step Length Does pass stance foot Right Foot Step Height Does not clear floor Left Foot Step Length Does pass stance foot Left Foot Step Height Does not clear floor Step Description Step Symmetry Step length appears equal Step Continuity Steps appear continuous Gait Description Path Description Mild/moderate deviation Trunk Description No sway but posturing Walking Stance Heels apart Scoring and Interpretation Tinetti Composite Score (points) 20 Interpretation of Scores At risk for falls (19-24) Tinetti Impairment Rating from Composite 20 to <40% Impaired (Score 17- Score 22) Vann Fall Scale Copyright Permission PT-OP-E Functional Tests Start: 03/13/19 11:58 Freq: Status: Active Protocol: Document 06/05/19 12:00 DCW (Rec: 06/05/19 12:38 DCW [id number]) Functional Tests 2 Minute Walk Test Distance 163' Device Used Bilateral walking sticks Comments 1.36 Timed Up and Go (TUG) Score 20.15 Comments 3-trial average (19.38, 22.40, 18.66) TUG Impairment Rating 100% Impaired (Score 20) Tinetti Balance and Gait Assessment Balance Score 13 Gait Score 7 Composite Score 20 Balance Score Impairment Rating 1 to <20% Impaired (Score 13- 15) Gait Score Impairment Rating 40 to <60% Impaired (Score 5-7 ) Composite Score Impairment Rating 20 to <40% Impaired (Score 17- 22) PT-OP-M Strength Start: 03/13/19 11:58 Freq: Status: Active Protocol: Document 06/05/19 12:00 DCW (Rec: 06/05/19 12:38 DCW [id number]) Hip Strength Hip Manual Muscle Testing Right Flexion (L2) 4 Good Abduction 4+ Good+ Adduction 4 Good Left Flexion (L2) 4+ Good+ Abduction 4 Good Adduction 4+ Good+ Knee Strength Knee Manual Muscle Testing Right Flexion (S2) 5 Normal Extension (L3) 4+ Good+ Left Flexion (S2) 4+ Good+ Extension (L3) 4+ Good+ Ankle/Foot Strength Ankle and Foot Manual Muscle Testing Right Dorsiflexion (L4) 4+ Good+ Plantarflexion (S1) 4 Good Left Dorsiflexion (L4) 4 Good Plantarflexion (S1) 4 Good PT-OP-Q Treatments Start: 03/13/19 11:58 Freq: Status: Active Protocol: Document 06/24/19 10:30 DCW (Rec: 06/24/19 11:13 DCW [id number]) Cardio Equipment Recumbent Elliptical (Biodex) Duration (Minutes) 5 Resistance 4 Seat Position 8 Gym Equipment Shuttle Balance Blue Details Wide EMELY (EO/EC), Staggered Stance Gait Training Gait Activity Stride length Description Step count over specific distance Distance/Duration 20' course Comments # of steps: 13->13->13->12->13 ->12 Gait speed training Description 170' x2 Treatment Focus Increased gait speed, increased stride length Comments 170' time: 141.85 (1.20 ft/ sec); 138.6 (1.23 ft/sec) Neuro Re-Education Treatment Balance Activities Semi-tandem Stance Details Tandem Equipment @ rail PT-OP-T Assessment and Plan Start: 03/13/19 11:58 Freq: Status: Active Protocol: Document 06/24/19 10:30 DCW (Rec: 06/24/19 11:13 DCW [id number]) Physical Therapy Assessment Impairments Impairments Activity Tolerance,Balance, Functional Activities, Functional Mobility,Gait, Posture,Strength,Transfers Goals Five Impairment TUG score of 20.15 seconds Prison Goal (LTG) Pt to score at least 15 seconds on the TUG LTG Duration 08/05/19 Four Impairment Tinetti Short Term Goal (STG) Pt to score at least 20/28 on Tinetti Balance Assessment STG Duration Met Prison Goal (LTG) Pt to score at least 24/28 on Tinetti Balance Assessment LTG Duration 08/05/19 Three Impairment LE MMT Short Term Goal (STG) Pt LE MMT grossly to 4/5 in order to improve balance and activity tolerance STG Duration Met Tube Maker Goal (LTG) Pt LE MMT grossly to 4+/5 in order to improve balance and activity tolerance LTG Duration 08/05/19 Two Impairment Gait speed of 1.36 ft/sec during two minute walk test Short Term Goal (STG) Pt gait speed to 1.2 ft/sec (2 MWT distance of 144'). STG Duration Met Prison Goal (LTG) Pt gait speed to 1.6 ft/sec (2 MWT distance of 192'). A gait speed of less than 1.97 indicates a greater likelihood of further functional decline in older adults LTG Duration 08/05/19 One Impairment Pt does not have an appropriate home exercise program Short Term Goal (STG) Pt to be independent and compliant with an appropriate HEP STG Duration Met Assessment Summary Assessment Pt had an average performance today, fatigued more than most other visits, required increased rest breaks. Physical Therapy Plan Frequency and Duration Frequency of Treatment 2x/Week Duration of Treatment 12 weeks Plan of Care Start Date 06/05/19 Plan of Care End Date 08/26/19 Therapeutic Interventions Therapeutic Interventions Aquatic Therapy,Balance Training,Home Exercise Program ,Neuromuscular Re-education, Patient/Caregiver Education, Self-Care/Home Management,Soft Tissue Mobilization, Therapeutic Activities, Therapeutic Exercises Next Visit Focus/Plan Next Note Type Treatment Note Next Visit Plan Strengthening, gait training, gait speed, balance training
--- NOTE | 2019-06-27 12:00 | PT.OTN ---
Current Diagnoses Cerebral infarction, unspecified (06/27/19) Muscle weakness (generalized) (06/27/19) Other abnormalities of gait and mobility (06/27/19) Physical Therapy Treatment Note PT-OP-A Visit Information Start: 03/13/19 11:58 Freq: Status: Active Protocol: Document 06/27/19 11:15 DCW (Rec: 06/27/19 12:00 DCW [id number]) Out-Patient Physical Therapy Visit Information Visit Information Visit Type Treatment Note Visit Start Time 11:15 Visit Stop Time 12:00 Total Visit Minutes 45 Visit Number 19 Number of GRAPHICS COORDINATOR Visits 0 Evaluation Information Evaluation Date 03/13/19 PT-OP-B Current Condition Start: 03/13/19 11:58 Freq: Status: Active Protocol: Document 03/13/19 11:15 DCW (Rec: 03/13/19 12:27 DCW [id number]) Current Condition History of Current Condition Onset Date Multi-year history Current Complaints Fatigue, weakness, imbalance, decreased gait speed History of Current Condition Pt is a 78 year old female well known to this clinic presenting with what she calls a loss of ground following her last round of physical therapy earlier in the year. Pt has a history of 5 separate CVAs, and feels her largest problem is her very slow gait speed, as well as weakness. Her slow gait speed is a long- standing issue which has previously been addressed at physical therapy, and she has shown some improvement, but typically does not perform a lot of HEP following discharge , and typically then regresses . 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 Prior Treatments and Tests Multiple rounds of physical therapy Treatment Goals Patient/Caregiver Goals Improve strengh and gait speed Prior Functional Status Baseline Function- ADL's Needs Assist Baseline Function- Mobility Needs Assist Baseline Function- Gait Very slow gait with bilateral walking sticks PT-OP-C Subjective Start: 03/13/19 11:58 Freq: Status: Active Protocol: Document 06/27/19 11:15 DCW (Rec: 06/27/19 12:00 DCW [id number]) OP-PT Subjective Patient Comments Patient Comments Pt reports she is okay today . PT-OP-D Balance Start: 03/13/19 11:58 Freq: Status: Active Protocol: Document 06/05/19 12:00 DCW (Rec: 06/05/19 12:38 DCW [id number]) OP-PT Balance Assessment Sitting Balance Static Sitting Balance Ability Good Dynamic Sitting Balance Ability Good Standing Balance Static Standing Balance Ability Fair Dynamic Standing Balance Ability Fair Tinetti Balance Assessment Sitting Balance Sitting Balance Steady, safe Arising from Chair Ability to Arise Able, uses arms to help Attempts to Arise Arises on 1st attempt Standing Balance Immediate Standing Balance Steady w/o support Standing Balance Narrow stance w/o support Nudged Response Steady Standing with Eyes Closed Steady Turning Step Pattern Turning 360 Degrees Discontinuous steps Stability Turning 360 Degrees Steady Sitting Down Sitting Down Uses arms or unsteady Gait and Step Initiation of Gait No hesitancy Right Foot Step Length Does pass stance foot Right Foot Step Height Does not clear floor Left Foot Step Length Does pass stance foot Left Foot Step Height Does not clear floor Step Description Step Symmetry Step length appears equal Step Continuity Steps appear continuous Gait Description Path Description Mild/moderate deviation Trunk Description No sway but posturing Walking Stance Heels apart Scoring and Interpretation Tinetti Composite Score (points) 20 Interpretation of Scores At risk for falls (19-24) Tinetti Impairment Rating from Composite 20 to <40% Impaired (Score 17- Score 22) Vann Fall Scale Copyright Permission PT-OP-E Functional Tests Start: 03/13/19 11:58 Freq: Status: Active Protocol: Document 06/05/19 12:00 DCW (Rec: 06/05/19 12:38 DCW [id number]) Functional Tests 2 Minute Walk Test Distance 163' Device Used Bilateral walking sticks Comments 1.36 Timed Up and Go (TUG) Score 20.15 Comments 3-trial average (19.38, 22.40, 18.66) TUG Impairment Rating 100% Impaired (Score 20) Tinetti Balance and Gait Assessment Balance Score 13 Gait Score 7 Composite Score 20 Balance Score Impairment Rating 1 to <20% Impaired (Score 13- 15) Gait Score Impairment Rating 40 to <60% Impaired (Score 5-7 ) Composite Score Impairment Rating 20 to <40% Impaired (Score 17- 22) PT-OP-M Strength Start: 03/13/19 11:58 Freq: Status: Active Protocol: Document 06/05/19 12:00 DCW (Rec: 06/05/19 12:38 DCW [id number]) Hip Strength Hip Manual Muscle Testing Right Flexion (L2) 4 Good Abduction 4+ Good+ Adduction 4 Good Left Flexion (L2) 4+ Good+ Abduction 4 Good Adduction 4+ Good+ Knee Strength Knee Manual Muscle Testing Right Flexion (S2) 5 Normal Extension (L3) 4+ Good+ Left Flexion (S2) 4+ Good+ Extension (L3) 4+ Good+ Ankle/Foot Strength Ankle and Foot Manual Muscle Testing Right Dorsiflexion (L4) 4+ Good+ Plantarflexion (S1) 4 Good Left Dorsiflexion (L4) 4 Good Plantarflexion (S1) 4 Good PT-OP-Q Treatments Start: 03/13/19 11:58 Freq: Status: Active Protocol: Document 06/27/19 11:15 DCW (Rec: 06/27/19 12:00 DCW [id number]) Cardio Equipment Recumbent Elliptical (Biodex) Duration (Minutes) 5 Resistance 4 Seat Position 8 Gym Equipment Shuttle Balance Blue Details Wide EMELY (EO/EC), Staggered Stance Therapeutic Exercises Other Exercises Side-stepping Other Exercise Name Side-stepping at rail Resistance none Equipment Used // bars Gait Training Gait Activity Stride length Description Step count over specific distance Distance/Duration 20' course Comments # of steps: 13->12->12->12->11 .5->12 Gait speed training Description 170' x2 Treatment Focus Increased gait speed, increased stride length Comments 170' time: 128.98 (1.32 ft/ sec); 127.36 (1.33 ft/sec) PT-OP-T Assessment and Plan Start: 03/13/19 11:58 Freq: Status: Active Protocol: Document 06/27/19 11:15 DCW (Rec: 06/27/19 12:00 DCW [id number]) Physical Therapy Assessment Impairments Impairments Activity Tolerance,Balance, Functional Activities, Functional Mobility,Gait, Posture,Strength,Transfers Goals Five Impairment TUG score of 20.15 seconds Posting Clerk Goal (LTG) Pt to score at least 15 seconds on the TUG LTG Duration 08/05/19 Four Impairment Tinetti Short Term Goal (STG) Pt to score at least 20/28 on Tinetti Balance Assessment STG Duration Met Usp Goal (LTG) Pt to score at least 24/28 on Tinetti Balance Assessment LTG Duration 08/05/19 Three Impairment LE MMT Short Term Goal (STG) Pt LE MMT grossly to 4/5 in order to improve balance and activity tolerance STG Duration Met Usp Goal (LTG) Pt LE MMT grossly to 4+/5 in order to improve balance and activity tolerance LTG Duration 08/05/19 Two Impairment Gait speed of 1.36 ft/sec during two minute walk test Short Term Goal (STG) Pt gait speed to 1.2 ft/sec (2 MWT distance of 144'). STG Duration Met Usp Goal (LTG) Pt gait speed to 1.6 ft/sec (2 MWT distance of 192'). A gait speed of less than 1.97 indicates a greater likelihood of further functional decline in older adults LTG Duration 08/05/19 One Impairment Pt does not have an appropriate home exercise program Short Term Goal (STG) Pt to be independent and compliant with an appropriate HEP STG Duration Met Assessment Summary Assessment Pt able to take appropriately- sized steps, or ambulate with continuous movement, but struggles to do both, walking with either halting steps or a short step length. Physical Therapy Plan Frequency and Duration Frequency of Treatment 2x/Week Duration of Treatment 12 weeks Plan of Care Start Date 06/05/19 Plan of Care End Date 08/26/19 Therapeutic Interventions Therapeutic Interventions Aquatic Therapy,Balance Training,Home Exercise Program ,Neuromuscular Re-education, Patient/Caregiver Education, Self-Care/Home Management,Soft Tissue Mobilization, Therapeutic Activities, Therapeutic Exercises Next Visit Focus/Plan Next Note Type Treatment Note Next Visit Plan Strengthening, gait training, gait speed, balance training
--- NOTE | 2019-07-01 11:16 | PT.OTN ---
Current Diagnoses Cerebral infarction, unspecified (07/01/19) Muscle weakness (generalized) (07/01/19) Other abnormalities of gait and mobility (07/01/19) Physical Therapy Treatment Note PT-OP-A Visit Information Start: 03/13/19 11:58 Freq: Status: Active Protocol: Document 07/01/19 10:30 DCW (Rec: 07/01/19 11:15 DCW [id number]) Out-Patient Physical Therapy Visit Information Visit Information Visit Type Treatment Note Visit Start Time 10:30 Visit Stop Time 11:15 Total Visit Minutes 45 Visit Number 20 Number of PATIENT SUPPORT SPECIALIST Visits 0 Evaluation Information Evaluation Date 03/13/19 PT-OP-B Current Condition Start: 03/13/19 11:58 Freq: Status: Active Protocol: Document 03/13/19 11:15 DCW (Rec: 03/13/19 12:27 DCW [id number]) Current Condition History of Current Condition Onset Date Multi-year history Current Complaints Fatigue, weakness, imbalance, decreased gait speed History of Current Condition Pt is a 78 year old female well known to this clinic presenting with what she calls a loss of ground following her last round of physical therapy earlier in the year. Pt has a history of 5 separate CVAs, and feels her largest problem is her very slow gait speed, as well as weakness. Her slow gait speed is a long- standing issue which has previously been addressed at physical therapy, and she has shown some improvement, but typically does not perform a lot of HEP following discharge , and typically then regresses . 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 Prior Treatments and Tests Multiple rounds of physical therapy Treatment Goals Patient/Caregiver Goals Improve strengh and gait speed Prior Functional Status Baseline Function- ADL's Needs Assist Baseline Function- Mobility Needs Assist Baseline Function- Gait Very slow gait with bilateral walking sticks PT-OP-C Subjective Start: 03/13/19 11:58 Freq: Status: Active Protocol: Document 07/01/19 10:30 DCW (Rec: 07/01/19 11:15 DCW [id number]) OP-PT Subjective Patient Comments Patient Comments I was planning on going to bed last night at 9:30, but then I didn't, and I stayed up until midnight. PT-OP-D Balance Start: 03/13/19 11:58 Freq: Status: Active Protocol: Document 06/05/19 12:00 DCW (Rec: 06/05/19 12:38 DCW [id number]) OP-PT Balance Assessment Sitting Balance Static Sitting Balance Ability Good Dynamic Sitting Balance Ability Good Standing Balance Static Standing Balance Ability Fair Dynamic Standing Balance Ability Fair Tinetti Balance Assessment Sitting Balance Sitting Balance Steady, safe Arising from Chair Ability to Arise Able, uses arms to help Attempts to Arise Arises on 1st attempt Standing Balance Immediate Standing Balance Steady w/o support Standing Balance Narrow stance w/o support Nudged Response Steady Standing with Eyes Closed Steady Turning Step Pattern Turning 360 Degrees Discontinuous steps Stability Turning 360 Degrees Steady Sitting Down Sitting Down Uses arms or unsteady Gait and Step Initiation of Gait No hesitancy Right Foot Step Length Does pass stance foot Right Foot Step Height Does not clear floor Left Foot Step Length Does pass stance foot Left Foot Step Height Does not clear floor Step Description Step Symmetry Step length appears equal Step Continuity Steps appear continuous Gait Description Path Description Mild/moderate deviation Trunk Description No sway but posturing Walking Stance Heels apart Scoring and Interpretation Tinetti Composite Score (points) 20 Interpretation of Scores At risk for falls (19-24) Tinetti Impairment Rating from Composite 20 to <40% Impaired (Score 17- Score 22) Vann Fall Scale Copyright Permission PT-OP-E Functional Tests Start: 03/13/19 11:58 Freq: Status: Active Protocol: Document 06/05/19 12:00 DCW (Rec: 06/05/19 12:38 DCW [id number]) Functional Tests 2 Minute Walk Test Distance 163' Device Used Bilateral walking sticks Comments 1.36 Timed Up and Go (TUG) Score 20.15 Comments 3-trial average (19.38, 22.40, 18.66) TUG Impairment Rating 100% Impaired (Score 20) Tinetti Balance and Gait Assessment Balance Score 13 Gait Score 7 Composite Score 20 Balance Score Impairment Rating 1 to <20% Impaired (Score 13- 15) Gait Score Impairment Rating 40 to <60% Impaired (Score 5-7 ) Composite Score Impairment Rating 20 to <40% Impaired (Score 17- 22) PT-OP-M Strength Start: 03/13/19 11:58 Freq: Status: Active Protocol: Document 06/05/19 12:00 DCW (Rec: 06/05/19 12:38 DCW [id number]) Hip Strength Hip Manual Muscle Testing Right Flexion (L2) 4 Good Abduction 4+ Good+ Adduction 4 Good Left Flexion (L2) 4+ Good+ Abduction 4 Good Adduction 4+ Good+ Knee Strength Knee Manual Muscle Testing Right Flexion (S2) 5 Normal Extension (L3) 4+ Good+ Left Flexion (S2) 4+ Good+ Extension (L3) 4+ Good+ Ankle/Foot Strength Ankle and Foot Manual Muscle Testing Right Dorsiflexion (L4) 4+ Good+ Plantarflexion (S1) 4 Good Left Dorsiflexion (L4) 4 Good Plantarflexion (S1) 4 Good PT-OP-Q Treatments Start: 03/13/19 11:58 Freq: Status: Active Protocol: Document 07/01/19 10:30 DCW (Rec: 07/01/19 11:15 DCW [id number]) Cardio Equipment Recumbent Elliptical (Biodex) Duration (Minutes) 5 Resistance 4 Seat Position 8 Gym Equipment Shuttle Balance Blue Details Wide EMELY (EO/EC), Staggered Stance Therapeutic Exercises Other Exercises Side-stepping Other Exercise Name Side-stepping at rail Resistance none Equipment Used // bars Gait Training Gait Activity Stride length Description Step count over specific distance Device Used Walking sticks Distance/Duration 20' course Comments # of steps: 12->13->12->13->12 ->12 Gait speed training Description 170' x2 Device Used Walking sticks Treatment Focus Increased gait speed, increased stride length Comments 170' time: 111.55 (1.52 ft/ sec); 108.54 (1.57 ft/sec) PT-OP-T Assessment and Plan Start: 03/13/19 11:58 Freq: Status: Active Protocol: Document 07/01/19 10:30 DCW (Rec: 07/01/19 11:15 DCW [id number]) Physical Therapy Assessment Impairments Impairments Activity Tolerance,Balance, Functional Activities, Functional Mobility,Gait, Posture,Strength,Transfers Goals Five Impairment TUG score of 20.15 seconds Chemical Plant Worker Goal (LTG) Pt to score at least 15 seconds on the TUG LTG Duration 08/05/19 Four Impairment Tinetti Short Term Goal (STG) Pt to score at least 20/28 on Tinetti Balance Assessment STG Duration Met Prison Goal (LTG) Pt to score at least 24/28 on Tinetti Balance Assessment LTG Duration 08/05/19 Three Impairment LE MMT Short Term Goal (STG) Pt LE MMT grossly to 4/5 in order to improve balance and activity tolerance STG Duration Met Chemical Plant Worker Goal (LTG) Pt LE MMT grossly to 4+/5 in order to improve balance and activity tolerance LTG Duration 08/05/19 Two Impairment Gait speed of 1.36 ft/sec during two minute walk test Short Term Goal (STG) Pt gait speed to 1.2 ft/sec (2 MWT distance of 144'). STG Duration Met Chemical Plant Worker Goal (LTG) Pt gait speed to 1.6 ft/sec (2 MWT distance of 192'). A gait speed of less than 1.97 indicates a greater likelihood of further functional decline in older adults LTG Duration 08/05/19 One Impairment Pt does not have an appropriate home exercise program Short Term Goal (STG) Pt to be independent and compliant with an appropriate HEP STG Duration Met Assessment Summary Assessment Pt had a smoother gait pattern today, able to cut down on her lap time by ~20 seconds vs last visit. Pt also demonstrated increased stability today on the shuttle balance. Physical Therapy Plan Frequency and Duration Frequency of Treatment 2x/Week Duration of Treatment 12 weeks Plan of Care Start Date 06/05/19 Plan of Care End Date 08/26/19 Therapeutic Interventions Therapeutic Interventions Aquatic Therapy,Balance Training,Home Exercise Program ,Neuromuscular Re-education, Patient/Caregiver Education, Self-Care/Home Management,Soft Tissue Mobilization, Therapeutic Activities, Therapeutic Exercises Next Visit Focus/Plan Next Note Type Treatment Note Next Visit Plan Strengthening, gait training, gait speed, balance training
--- NOTE | 2019-07-03 11:15 | PT.OTN ---
Current Diagnoses Cerebral infarction, unspecified (07/03/19) Muscle weakness (generalized) (07/03/19) Other abnormalities of gait and mobility (07/03/19) Physical Therapy Treatment Note PT-OP-A Visit Information Start: 03/13/19 11:58 Freq: Status: Active Protocol: Document 07/03/19 10:30 DCW (Rec: 07/03/19 11:14 DCW [id number]) Out-Patient Physical Therapy Visit Information Visit Information Visit Type Treatment Note Visit Note 02/23 Visit Start Time 10:30 Visit Stop Time 11:15 Total Visit Minutes 45 Visit Number 21 Number of ACO COORDINATOR Visits 0 Evaluation Information Evaluation Date 03/13/19 PT-OP-B Current Condition Start: 03/13/19 11:58 Freq: Status: Active Protocol: Document 03/13/19 11:15 DCW (Rec: 03/13/19 12:27 DCW [id number]) Current Condition History of Current Condition Onset Date Multi-year history Current Complaints Fatigue, weakness, imbalance, decreased gait speed History of Current Condition Pt is a 78 year old female well known to this clinic presenting with what she calls a loss of ground following her last round of physical therapy earlier in the year. Pt has a history of 5 separate CVAs, and feels her largest problem is her very slow gait speed, as well as weakness. Her slow gait speed is a long- standing issue which has previously been addressed at physical therapy, and she has shown some improvement, but typically does not perform a lot of HEP following discharge , and typically then regresses . 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 Prior Treatments and Tests Multiple rounds of physical therapy Treatment Goals Patient/Caregiver Goals Improve strengh and gait speed Prior Functional Status Baseline Function- ADL's Needs Assist Baseline Function- Mobility Needs Assist Baseline Function- Gait Very slow gait with bilateral walking sticks PT-OP-C Subjective Start: 03/13/19 11:58 Freq: Status: Active Protocol: Document 07/03/19 10:30 DCW (Rec: 07/03/19 11:14 DCW [id number]) OP-PT Subjective Patient Comments Patient Comments I feel okay, but I just got out of bed, and my walking is never very good when I just get up. PT-OP-D Balance Start: 03/13/19 11:58 Freq: Status: Active Protocol: Document 06/05/19 12:00 DCW (Rec: 06/05/19 12:38 DCW [id number]) OP-PT Balance Assessment Sitting Balance Static Sitting Balance Ability Good Dynamic Sitting Balance Ability Good Standing Balance Static Standing Balance Ability Fair Dynamic Standing Balance Ability Fair Tinetti Balance Assessment Sitting Balance Sitting Balance Steady, safe Arising from Chair Ability to Arise Able, uses arms to help Attempts to Arise Arises on 1st attempt Standing Balance Immediate Standing Balance Steady w/o support Standing Balance Narrow stance w/o support Nudged Response Steady Standing with Eyes Closed Steady Turning Step Pattern Turning 360 Degrees Discontinuous steps Stability Turning 360 Degrees Steady Sitting Down Sitting Down Uses arms or unsteady Gait and Step Initiation of Gait No hesitancy Right Foot Step Length Does pass stance foot Right Foot Step Height Does not clear floor Left Foot Step Length Does pass stance foot Left Foot Step Height Does not clear floor Step Description Step Symmetry Step length appears equal Step Continuity Steps appear continuous Gait Description Path Description Mild/moderate deviation Trunk Description No sway but posturing Walking Stance Heels apart Scoring and Interpretation Tinetti Composite Score (points) 20 Interpretation of Scores At risk for falls (19-24) Tinetti Impairment Rating from Composite 20 to <40% Impaired (Score 17- Score 22) Vann Fall Scale Copyright Permission PT-OP-E Functional Tests Start: 03/13/19 11:58 Freq: Status: Active Protocol: Document 06/05/19 12:00 DCW (Rec: 06/05/19 12:38 DCW [id number]) Functional Tests 2 Minute Walk Test Distance 163' Device Used Bilateral walking sticks Comments 1.36 Timed Up and Go (TUG) Score 20.15 Comments 3-trial average (19.38, 22.40, 18.66) TUG Impairment Rating 100% Impaired (Score 20) Tinetti Balance and Gait Assessment Balance Score 13 Gait Score 7 Composite Score 20 Balance Score Impairment Rating 1 to <20% Impaired (Score 13- 15) Gait Score Impairment Rating 40 to <60% Impaired (Score 5-7 ) Composite Score Impairment Rating 20 to <40% Impaired (Score 17- 22) PT-OP-M Strength Start: 03/13/19 11:58 Freq: Status: Active Protocol: Document 06/05/19 12:00 DCW (Rec: 06/05/19 12:38 DCW [id number]) Hip Strength Hip Manual Muscle Testing Right Flexion (L2) 4 Good Abduction 4+ Good+ Adduction 4 Good Left Flexion (L2) 4+ Good+ Abduction 4 Good Adduction 4+ Good+ Knee Strength Knee Manual Muscle Testing Right Flexion (S2) 5 Normal Extension (L3) 4+ Good+ Left Flexion (S2) 4+ Good+ Extension (L3) 4+ Good+ Ankle/Foot Strength Ankle and Foot Manual Muscle Testing Right Dorsiflexion (L4) 4+ Good+ Plantarflexion (S1) 4 Good Left Dorsiflexion (L4) 4 Good Plantarflexion (S1) 4 Good PT-OP-Q Treatments Start: 03/13/19 11:58 Freq: Status: Active Protocol: Document 07/03/19 10:30 DCW (Rec: 07/03/19 11:14 DCW [id number]) Cardio Equipment Recumbent Elliptical (Biodex) Duration (Minutes) 5 Resistance 4 Seat Position 8 Gym Equipment Shuttle Balance Blue Details Wide EMELY (EO/EC), Staggered Stance Therapeutic Exercises Standing Exercises Hurdles Standing Exercise Name Hurdles Equipment Used /c and /s // bars Comments Forward Gait Training Gait Activity Stride length Description Step count over specific distance Device Used Walking sticks Distance/Duration 20' course Comments # of steps: 12->11->12->12->12 ->12 Gait speed training Description 170' x2 Device Used Walking sticks Treatment Focus Increased gait speed, increased stride length Comments 170' time: 118.3 (1.44 ft/sec ); 120.87 (1.41 ft/sec) PT-OP-T Assessment and Plan Start: 03/13/19 11:58 Freq: Status: Active Protocol: Document 07/03/19 10:30 DCW (Rec: 07/03/19 11:14 DCW [id number]) Physical Therapy Assessment Impairments Impairments Activity Tolerance,Balance, Functional Activities, Functional Mobility,Gait, Posture,Strength,Transfers Goals Five Impairment TUG score of 20.15 seconds Dental Scheduler Goal (LTG) Pt to score at least 15 seconds on the TUG LTG Duration 08/05/19 Four Impairment Tinetti Short Term Goal (STG) Pt to score at least 20/28 on Tinetti Balance Assessment STG Duration Met Dental Scheduler Goal (LTG) Pt to score at least 24/28 on Tinetti Balance Assessment LTG Duration 08/05/19 Three Impairment LE MMT Short Term Goal (STG) Pt LE MMT grossly to 4/5 in order to improve balance and activity tolerance STG Duration Met Dental Scheduler Goal (LTG) Pt LE MMT grossly to 4+/5 in order to improve balance and activity tolerance LTG Duration 08/05/19 Two Impairment Gait speed of 1.36 ft/sec during two minute walk test Short Term Goal (STG) Pt gait speed to 1.2 ft/sec (2 MWT distance of 144'). STG Duration Met Dental Scheduler Goal (LTG) Pt gait speed to 1.6 ft/sec (2 MWT distance of 192'). A gait speed of less than 1.97 indicates a greater likelihood of further functional decline in older adults LTG Duration 08/05/19 One Impairment Pt does not have an appropriate home exercise program Short Term Goal (STG) Pt to be independent and compliant with an appropriate HEP STG Duration Met Assessment Summary Assessment Pt fatigued today, required more rest breaks than usual. Pt often has days like this when she doesn't wake up early enough to have time to wake up prior to therapy. Physical Therapy Plan Frequency and Duration Frequency of Treatment 2x/Week Duration of Treatment 12 weeks Plan of Care Start Date 06/05/19 Plan of Care End Date 08/26/19 Therapeutic Interventions Therapeutic Interventions Aquatic Therapy,Balance Training,Home Exercise Program ,Neuromuscular Re-education, Patient/Caregiver Education, Self-Care/Home Management,Soft Tissue Mobilization, Therapeutic Activities, Therapeutic Exercises Next Visit Focus/Plan Next Note Type Treatment Note Next Visit Plan Strengthening, gait training, gait speed, balance training
--- NOTE | 2019-07-12 11:28 | PT.OTN ---
Current Diagnoses Cerebral infarction, unspecified (07/12/19) Muscle weakness (generalized) (07/12/19) Other abnormalities of gait and mobility (07/12/19) Physical Therapy Treatment Note PT-OP-A Visit Information Start: 03/13/19 11:58 Freq: Status: Active Protocol: Document 07/12/19 10:35 DCW (Rec: 07/12/19 11:28 DCW [id number]) Out-Patient Physical Therapy Visit Information Visit Information Visit Type Treatment Note Visit Note 03/26 Visit Start Time 10:35 Visit Stop Time 11:15 Total Visit Minutes 40 Visit Number 22 Number of DISTRIBUTED ENERGY SYSTEMS CONSULTANT Visits 0 Evaluation Information Evaluation Date 03/13/19 PT-OP-B Current Condition Start: 03/13/19 11:58 Freq: Status: Active Protocol: Document 03/13/19 11:15 DCW (Rec: 03/13/19 12:27 DCW [id number]) Current Condition History of Current Condition Onset Date Multi-year history Current Complaints Fatigue, weakness, imbalance, decreased gait speed History of Current Condition Pt is a 78 year old female well known to this clinic presenting with what she calls a loss of ground following her last round of physical therapy earlier in the year. Pt has a history of 5 separate CVAs, and feels her largest problem is her very slow gait speed, as well as weakness. Her slow gait speed is a long- standing issue which has previously been addressed at physical therapy, and she has shown some improvement, but typically does not perform a lot of HEP following discharge , and typically then regresses . 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 Prior Treatments and Tests Multiple rounds of physical therapy Treatment Goals Patient/Caregiver Goals Improve strengh and gait speed Prior Functional Status Baseline Function- ADL's Needs Assist Baseline Function- Mobility Needs Assist Baseline Function- Gait Very slow gait with bilateral walking sticks PT-OP-C Subjective Start: 03/13/19 11:58 Freq: Status: Active Protocol: Document 07/12/19 10:35 DCW (Rec: 07/12/19 11:28 DCW [id number]) OP-PT Subjective Patient Comments Patient Comments I'm Christmased out. And I had too much wine, which really affects me. PT-OP-D Balance Start: 03/13/19 11:58 Freq: Status: Active Protocol: Document 06/05/19 12:00 DCW (Rec: 06/05/19 12:38 DCW [id number]) OP-PT Balance Assessment Sitting Balance Static Sitting Balance Ability Good Dynamic Sitting Balance Ability Good Standing Balance Static Standing Balance Ability Fair Dynamic Standing Balance Ability Fair Tinetti Balance Assessment Sitting Balance Sitting Balance Steady, safe Arising from Chair Ability to Arise Able, uses arms to help Attempts to Arise Arises on 1st attempt Standing Balance Immediate Standing Balance Steady w/o support Standing Balance Narrow stance w/o support Nudged Response Steady Standing with Eyes Closed Steady Turning Step Pattern Turning 360 Degrees Discontinuous steps Stability Turning 360 Degrees Steady Sitting Down Sitting Down Uses arms or unsteady Gait and Step Initiation of Gait No hesitancy Right Foot Step Length Does pass stance foot Right Foot Step Height Does not clear floor Left Foot Step Length Does pass stance foot Left Foot Step Height Does not clear floor Step Description Step Symmetry Step length appears equal Step Continuity Steps appear continuous Gait Description Path Description Mild/moderate deviation Trunk Description No sway but posturing Walking Stance Heels apart Scoring and Interpretation Tinetti Composite Score (points) 20 Interpretation of Scores At risk for falls (19-24) Tinetti Impairment Rating from Composite 20 to <40% Impaired (Score 17- Score 22) Vann Fall Scale Copyright Permission PT-OP-E Functional Tests Start: 03/13/19 11:58 Freq: Status: Active Protocol: Document 06/05/19 12:00 DCW (Rec: 06/05/19 12:38 DCW [id number]) Functional Tests 2 Minute Walk Test Distance 163' Device Used Bilateral walking sticks Comments 1.36 Timed Up and Go (TUG) Score 20.15 Comments 3-trial average (19.38, 22.40, 18.66) TUG Impairment Rating 100% Impaired (Score 20) Tinetti Balance and Gait Assessment Balance Score 13 Gait Score 7 Composite Score 20 Balance Score Impairment Rating 1 to <20% Impaired (Score 13- 15) Gait Score Impairment Rating 40 to <60% Impaired (Score 5-7 ) Composite Score Impairment Rating 20 to <40% Impaired (Score 17- 22) PT-OP-M Strength Start: 03/13/19 11:58 Freq: Status: Active Protocol: Document 06/05/19 12:00 DCW (Rec: 06/05/19 12:38 DCW [id number]) Hip Strength Hip Manual Muscle Testing Right Flexion (L2) 4 Good Abduction 4+ Good+ Adduction 4 Good Left Flexion (L2) 4+ Good+ Abduction 4 Good Adduction 4+ Good+ Knee Strength Knee Manual Muscle Testing Right Flexion (S2) 5 Normal Extension (L3) 4+ Good+ Left Flexion (S2) 4+ Good+ Extension (L3) 4+ Good+ Ankle/Foot Strength Ankle and Foot Manual Muscle Testing Right Dorsiflexion (L4) 4+ Good+ Plantarflexion (S1) 4 Good Left Dorsiflexion (L4) 4 Good Plantarflexion (S1) 4 Good PT-OP-Q Treatments Start: 03/13/19 11:58 Freq: Status: Active Protocol: Document 07/12/19 10:35 DCW (Rec: 07/12/19 11:28 DCW [id number]) Therapeutic Exercises Other Exercises Retro Ambulation Other Exercise Name Retro Ambulation Equipment Used // bars Side-stepping Other Exercise Name Side-stepping at rail Resistance none Equipment Used // bars Gait Training Gait Activity Stride length Description Step count over specific distance Device Used Walking sticks Distance/Duration 20' course Comments # of steps: 12->13->13->13->12 ->12 Gait speed training Description 170' x2 Device Used Walking sticks Treatment Focus Increased gait speed, increased stride length Comments 170' time: 199.01 (0.85 ft/ sec); 148.11 (1.15 ft/sec) PT-OP-T Assessment and Plan Start: 03/13/19 11:58 Freq: Status: Active Protocol: Document 07/12/19 10:35 DCW (Rec: 07/12/19 11:28 DCW [id number]) Physical Therapy Assessment Impairments Impairments Activity Tolerance,Balance, Functional Activities, Functional Mobility,Gait, Posture,Strength,Transfers Goals Five Impairment TUG score of 20.15 seconds Aircraft Structural Fitter Goal (LTG) Pt to score at least 15 seconds on the TUG LTG Duration 08/05/19 Four Impairment Tinetti Short Term Goal (STG) Pt to score at least 20/28 on Tinetti Balance Assessment STG Duration Met Aircraft Structural Fitter Goal (LTG) Pt to score at least 24/28 on Tinetti Balance Assessment LTG Duration 08/05/19 Three Impairment LE MMT Short Term Goal (STG) Pt LE MMT grossly to 4/5 in order to improve balance and activity tolerance STG Duration Met Aircraft Structural Fitter Goal (LTG) Pt LE MMT grossly to 4+/5 in order to improve balance and activity tolerance LTG Duration 08/05/19 Two Impairment Gait speed of 1.36 ft/sec during two minute walk test Short Term Goal (STG) Pt gait speed to 1.2 ft/sec (2 MWT distance of 144'). STG Duration Met Aircraft Structural Fitter Goal (LTG) Pt gait speed to 1.6 ft/sec (2 MWT distance of 192'). A gait speed of less than 1.97 indicates a greater likelihood of further functional decline in older adults LTG Duration 08/05/19 One Impairment Pt does not have an appropriate home exercise program Short Term Goal (STG) Pt to be independent and compliant with an appropriate HEP STG Duration Met Assessment Summary Assessment Pt struggled significantly today, clearly very fatigued from a busy holiday season. Hopeful pt will at least return to her normal next week . Physical Therapy Plan Frequency and Duration Frequency of Treatment 2x/Week Duration of Treatment 12 weeks Plan of Care Start Date 06/05/19 Plan of Care End Date 08/26/19 Therapeutic Interventions Therapeutic Interventions Aquatic Therapy,Balance Training,Home Exercise Program ,Neuromuscular Re-education, Patient/Caregiver Education, Self-Care/Home Management,Soft Tissue Mobilization, Therapeutic Activities, Therapeutic Exercises Next Visit Focus/Plan Next Note Type Treatment Note Next Visit Plan Strengthening, gait training, gait speed, balance training
--- NOTE | 2019-07-26 11:16 | PT.OTN ---
Current Diagnoses Cerebral infarction, unspecified (07/26/19) Muscle weakness (generalized) (07/26/19) Other abnormalities of gait and mobility (07/26/19) Physical Therapy Treatment Note PT-OP-A Visit Information Start: 03/13/19 11:58 Freq: Status: Active Protocol: Document 07/26/19 10:30 DCW (Rec: 07/26/19 11:16 DCW [id number]) Out-Patient Physical Therapy Visit Information Visit Information Visit Type Progress Note Visit Note 04/25 Visit Start Time 10:30 Visit Stop Time 11:15 Total Visit Minutes 45 Visit Number 23 Number of .NET ARCHITECT Visits 0 Evaluation Information Evaluation Date 03/13/19 PT-OP-B Current Condition Start: 03/13/19 11:58 Freq: Status: Active Protocol: Document 03/13/19 11:15 DCW (Rec: 03/13/19 12:27 DCW [id number]) Current Condition History of Current Condition Onset Date Multi-year history Current Complaints Fatigue, weakness, imbalance, decreased gait speed History of Current Condition Pt is a 78 year old female well known to this clinic presenting with what she calls a loss of ground following her last round of physical therapy earlier in the year. Pt has a history of 5 separate CVAs, and feels her largest problem is her very slow gait speed, as well as weakness. Her slow gait speed is a long- standing issue which has previously been addressed at physical therapy, and she has shown some improvement, but typically does not perform a lot of HEP following discharge , and typically then regresses . Pt does note she has been working with a ict trainer in the local [employer], and has begun attending gentle yoga classes, as well as a dancing class for people with disabilities. Prior Treatments and Tests Multiple rounds of physical therapy Treatment Goals Patient/Caregiver Goals Improve strengh and gait speed Prior Functional Status Baseline Function- ADL's Needs Assist Baseline Function- Mobility Needs Assist Baseline Function- Gait Very slow gait with bilateral walking sticks PT-OP-C Subjective Start: 03/13/19 11:58 Freq: Status: Active Protocol: Document 07/26/19 10:30 DCW (Rec: 07/26/19 11:16 DCW [id number]) OP-PT Subjective Patient Comments Patient Comments I've been in the pool, and I do yoga every week. PT-OP-D Balance Start: 03/13/19 11:58 Freq: Status: Active Protocol: Document 06/05/19 12:00 DCW (Rec: 06/05/19 12:38 DCW [id number]) OP-PT Balance Assessment Sitting Balance Static Sitting Balance Ability Good Dynamic Sitting Balance Ability Good Standing Balance Static Standing Balance Ability Fair Dynamic Standing Balance Ability Fair Tinetti Balance Assessment Sitting Balance Sitting Balance Steady, safe Arising from Chair Ability to Arise Able, uses arms to help Attempts to Arise Arises on 1st attempt Standing Balance Immediate Standing Balance Steady w/o support Standing Balance Narrow stance w/o support Nudged Response Steady Standing with Eyes Closed Steady Turning Step Pattern Turning 360 Degrees Discontinuous steps Stability Turning 360 Degrees Steady Sitting Down Sitting Down Uses arms or unsteady Gait and Step Initiation of Gait No hesitancy Right Foot Step Length Does pass stance foot Right Foot Step Height Does not clear floor Left Foot Step Length Does pass stance foot Left Foot Step Height Does not clear floor Step Description Step Symmetry Step length appears equal Step Continuity Steps appear continuous Gait Description Path Description Mild/moderate deviation Trunk Description No sway but posturing Walking Stance Heels apart Scoring and Interpretation Tinetti Composite Score (points) 20 Interpretation of Scores At risk for falls (19-24) Tinetti Impairment Rating from Composite 20 to <40% Impaired (Score 17- Score 22) Vann Fall Scale Copyright Permission PT-OP-E Functional Tests Start: 03/13/19 11:58 Freq: Status: Active Protocol: Document 06/05/19 12:00 DCW (Rec: 06/05/19 12:38 DCW [id number]) Functional Tests 2 Minute Walk Test Distance 163' Device Used Bilateral walking sticks Comments 1.36 Timed Up and Go (TUG) Score 20.15 Comments 3-trial average (19.38, 22.40, 18.66) TUG Impairment Rating 100% Impaired (Score 20) Tinetti Balance and Gait Assessment Balance Score 13 Gait Score 7 Composite Score 20 Balance Score Impairment Rating 1 to <20% Impaired (Score 13- 15) Gait Score Impairment Rating 40 to <60% Impaired (Score 5-7 ) Composite Score Impairment Rating 20 to <40% Impaired (Score 17- 22) PT-OP-M Strength Start: 03/13/19 11:58 Freq: Status: Active Protocol: Document 06/05/19 12:00 DCW (Rec: 11/20/19 12:38 DCW [id number]) Hip Strength Hip Manual Muscle Testing Right Flexion (L2) 4 Good Abduction 4+ Good+ Adduction 4 Good Left Flexion (L2) 4+ Good+ Abduction 4 Good Adduction 4+ Good+ Knee Strength Knee Manual Muscle Testing Right Flexion (S2) 5 Normal Extension (L3) 4+ Good+ Left Flexion (S2) 4+ Good+ Extension (L3) 4+ Good+ Ankle/Foot Strength Ankle and Foot Manual Muscle Testing Right Dorsiflexion (L4) 4+ Good+ Plantarflexion (S1) 4 Good Left Dorsiflexion (L4) 4 Good Plantarflexion (S1) 4 Good PT-OP-Q Treatments Start: 03/13/19 11:58 Freq: Status: Active Protocol: Document 07/26/19 10:30 DCW (Rec: 07/26/19 11:16 DCW [id number]) Therapeutic Exercises Standing Exercises Hurdles Standing Exercise Name Hurdles Equipment Used /c and /s // bars Comments Forward Other Exercises Retro Ambulation Other Exercise Name Retro Ambulation Equipment Used // bars Side-stepping Other Exercise Name Side-stepping at rail Resistance none Equipment Used // bars Gait Training Gait Activity Stride length Description Step count over specific distance Device Used Walking sticks Distance/Duration 20' course Comments # of steps: 12->12->12->13->12 ->13 Gait speed training Description 170' x2 Device Used Walking sticks Treatment Focus Increased gait speed, increased stride length Comments 170' time: 131.82 (1.29 ft/ sec); 131.30 (1.29 ft/sec) Neuro Re-Education Treatment Balance Activities Foam Stance Details Double leg stance on foam Surface Silva foam Comments EO/EC, Head turns PT-OP-T Assessment and Plan Start: 03/13/19 11:58 Freq: Status: Active Protocol: Document 07/26/19 10:30 DCW (Rec: 07/26/19 11:16 DCW [id number]) Physical Therapy Assessment Impairments Impairments Activity Tolerance,Balance, Functional Activities, Functional Mobility,Gait, Posture,Strength,Transfers Goals Five Impairment TUG score of 20.15 seconds Fpc Goal (LTG) Pt to score at least 15 seconds on the TUG LTG Duration 08/05/19 Four Impairment Tinetti Short Term Goal (STG) Pt to score at least 20/28 on Tinetti Balance Assessment STG Duration Met Fixture Maker Goal (LTG) Pt to score at least 24/28 on Tinetti Balance Assessment LTG Duration 08/05/19 Three Impairment LE MMT Short Term Goal (STG) Pt LE MMT grossly to 4/5 in order to improve balance and activity tolerance STG Duration Met Fpc Goal (LTG) Pt LE MMT grossly to 4+/5 in order to improve balance and activity tolerance LTG Duration 08/05/19 Two Impairment Gait speed of 1.36 ft/sec during two minute walk test Short Term Goal (STG) Pt gait speed to 1.2 ft/sec (2 MWT distance of 144'). STG Duration Met Fpc Goal (LTG) Pt gait speed to 1.6 ft/sec (2 MWT distance of 192'). A gait speed of less than 1.97 indicates a greater likelihood of further functional decline in older adults LTG Duration 08/05/19 One Impairment Pt does not have an appropriate home exercise program Short Term Goal (STG) Pt to be independent and compliant with an appropriate HEP STG Duration Met Assessment Summary Assessment Pt still slightly fatigued today, however did much better than she did her last visit. Physical Therapy Plan Frequency and Duration Frequency of Treatment 2x/Week Duration of Treatment 12 weeks Plan of Care Start Date 06/05/19 Plan of Care End Date 08/26/19 Therapeutic Interventions Therapeutic Interventions Aquatic Therapy,Balance Training,Home Exercise Program ,Neuromuscular Re-education, Patient/Caregiver Education, Self-Care/Home Management,Soft Tissue Mobilization, Therapeutic Activities, Therapeutic Exercises Next Visit Focus/Plan Next Note Type Treatment Note Next Visit Plan Strengthening, gait training, gait speed, balance training
--- NOTE | 2019-08-02 14:29 | PT.OTN ---
Current Diagnoses Cerebral infarction, unspecified (08/02/19) Muscle weakness (generalized) (08/02/19) Other abnormalities of gait and mobility (08/02/19) Physical Therapy Treatment Note PT-OP-A Visit Information Start: 03/13/19 11:58 Freq: Status: Active Protocol: Document 08/02/19 13:45 DCW (Rec: 08/02/19 14:29 DCW [id number]) Out-Patient Physical Therapy Visit Information Visit Information Visit Type Treatment Note Visit Note 07/26 Visit Start Time 13:45 Visit Stop Time 14:30 Total Visit Minutes 45 Visit Number 23 Number of MECHANIC DRIVER Visits 0 Evaluation Information Evaluation Date 03/13/19 PT-OP-B Current Condition Start: 03/13/19 11:58 Freq: Status: Active Protocol: Document 03/13/19 11:15 DCW (Rec: 03/13/19 12:27 DCW [id number]) Current Condition History of Current Condition Onset Date Multi-year history Current Complaints Fatigue, weakness, imbalance, decreased gait speed History of Current Condition Pt is a 78 year old female well known to this clinic presenting with what she calls a loss of ground following her last round of physical therapy earlier in the year. Pt has a history of 5 separate CVAs, and feels her largest problem is her very slow gait speed, as well as weakness. Her slow gait speed is a long- standing issue which has previously been addressed at physical therapy, and she has shown some improvement, but typically does not perform a lot of HEP following discharge , and typically then regresses . 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 Prior Treatments and Tests Multiple rounds of physical therapy Treatment Goals Patient/Caregiver Goals Improve strengh and gait speed Prior Functional Status Baseline Function- ADL's Needs Assist Baseline Function- Mobility Needs Assist Baseline Function- Gait Very slow gait with bilateral walking sticks PT-OP-C Subjective Start: 03/13/19 11:58 Freq: Status: Active Protocol: Document 08/02/19 13:45 DCW (Rec: 08/02/19 14:29 DCW [id number]) OP-PT Subjective Patient Comments Patient Comments I haven't been moving much due to the recent snow. PT-OP-D Balance Start: 03/13/19 11:58 Freq: Status: Active Protocol: Document 06/05/19 12:00 DCW (Rec: 06/05/19 12:38 DCW [id number]) OP-PT Balance Assessment Sitting Balance Static Sitting Balance Ability Good Dynamic Sitting Balance Ability Good Standing Balance Static Standing Balance Ability Fair Dynamic Standing Balance Ability Fair Tinetti Balance Assessment Sitting Balance Sitting Balance Steady, safe Arising from Chair Ability to Arise Able, uses arms to help Attempts to Arise Arises on 1st attempt Standing Balance Immediate Standing Balance Steady w/o support Standing Balance Narrow stance w/o support Nudged Response Steady Standing with Eyes Closed Steady Turning Step Pattern Turning 360 Degrees Discontinuous steps Stability Turning 360 Degrees Steady Sitting Down Sitting Down Uses arms or unsteady Gait and Step Initiation of Gait No hesitancy Right Foot Step Length Does pass stance foot Right Foot Step Height Does not clear floor Left Foot Step Length Does pass stance foot Left Foot Step Height Does not clear floor Step Description Step Symmetry Step length appears equal Step Continuity Steps appear continuous Gait Description Path Description Mild/moderate deviation Trunk Description No sway but posturing Walking Stance Heels apart Scoring and Interpretation Tinetti Composite Score (points) 20 Interpretation of Scores At risk for falls (19-24) Tinetti Impairment Rating from Composite 20 to <40% Impaired (Score 17- Score 22) Vann Fall Scale Copyright Permission PT-OP-E Functional Tests Start: 03/13/19 11:58 Freq: Status: Active Protocol: Document 06/05/19 12:00 DCW (Rec: 06/05/19 12:38 DCW [id number]) Functional Tests 2 Minute Walk Test Distance 163' Device Used Bilateral walking sticks Comments 1.36 Timed Up and Go (TUG) Score 20.15 Comments 3-trial average (19.38, 22.40, 18.66) TUG Impairment Rating 100% Impaired (Score 20) Tinetti Balance and Gait Assessment Balance Score 13 Gait Score 7 Composite Score 20 Balance Score Impairment Rating 1 to <20% Impaired (Score 13- 15) Gait Score Impairment Rating 40 to <60% Impaired (Score 5-7 ) Composite Score Impairment Rating 20 to <40% Impaired (Score 17- 22) PT-OP-M Strength Start: 03/13/19 11:58 Freq: Status: Active Protocol: Document 06/05/19 12:00 DCW (Rec: 06/05/19 12:38 DCW [id number]) Hip Strength Hip Manual Muscle Testing Right Flexion (L2) 4 Good Abduction 4+ Good+ Adduction 4 Good Left Flexion (L2) 4+ Good+ Abduction 4 Good Adduction 4+ Good+ Knee Strength Knee Manual Muscle Testing Right Flexion (S2) 5 Normal Extension (L3) 4+ Good+ Left Flexion (S2) 4+ Good+ Extension (L3) 4+ Good+ Ankle/Foot Strength Ankle and Foot Manual Muscle Testing Right Dorsiflexion (L4) 4+ Good+ Plantarflexion (S1) 4 Good Left Dorsiflexion (L4) 4 Good Plantarflexion (S1) 4 Good PT-OP-Q Treatments Start: 03/13/19 11:58 Freq: Status: Active Protocol: Document 08/02/19 13:45 DCW (Rec: 08/02/19 14:29 DCW [id number]) Cardio Equipment Recumbent Elliptical (Biodex) Duration (Minutes) 5 Resistance 4 Seat Position 8 Therapeutic Exercises Standing Exercises Hurdles Standing Exercise Name Hurdles Equipment Used /c and /s // bars Comments Forward Other Exercises Side-stepping Other Exercise Name Side-stepping at rail Resistance none Equipment Used // bars Gait Training Gait Activity Stride length Description Step count over specific distance Device Used Walking sticks Distance/Duration 20' course Comments # of steps: 12->13->12->12->12 ->12 Gait speed training Description 170' x2 Device Used Walking sticks Treatment Focus Increased gait speed, increased stride length Comments 170' time: 166.26 (1.02 ft/ sec); 134.66 (1.26 ft/sec) PT-OP-T Assessment and Plan Start: 03/13/19 11:58 Freq: Status: Active Protocol: Document 08/02/19 13:45 DCW (Rec: 08/02/19 14:29 DCW [id number]) Physical Therapy Assessment Impairments Impairments Activity Tolerance,Balance, Functional Activities, Functional Mobility,Gait, Posture,Strength,Transfers Goals Five Impairment TUG score of 20.15 seconds Industrial Photographer Goal (LTG) Pt to score at least 15 seconds on the TUG LTG Duration 08/05/19 Four Impairment Tinetti Short Term Goal (STG) Pt to score at least 20/28 on Tinetti Balance Assessment STG Duration Met Senior Care Goal (LTG) Pt to score at least 24/28 on Tinetti Balance Assessment LTG Duration 08/05/19 Three Impairment LE MMT Short Term Goal (STG) Pt LE MMT grossly to 4/5 in order to improve balance and activity tolerance STG Duration Met Industrial Photographer Goal (LTG) Pt LE MMT grossly to 4+/5 in order to improve balance and activity tolerance LTG Duration 08/05/19 Two Impairment Gait speed of 1.36 ft/sec during two minute walk test Short Term Goal (STG) Pt gait speed to 1.2 ft/sec (2 MWT distance of 144'). STG Duration Met Senior Care Goal (LTG) Pt gait speed to 1.6 ft/sec (2 MWT distance of 192'). A gait speed of less than 1.97 indicates a greater likelihood of further functional decline in older adults LTG Duration 08/05/19 One Impairment Pt does not have an appropriate home exercise program Short Term Goal (STG) Pt to be independent and compliant with an appropriate HEP STG Duration Met Assessment Summary Assessment Pt struggled today after being sedentary the last few days due to bad weather. Physical Therapy Plan Frequency and Duration Frequency of Treatment 2x/Week Duration of Treatment 12 weeks Plan of Care Start Date 06/05/19 Plan of Care End Date 08/26/19 Therapeutic Interventions Therapeutic Interventions Aquatic Therapy,Balance Training,Home Exercise Program ,Neuromuscular Re-education, Patient/Caregiver Education, Self-Care/Home Management,Soft Tissue Mobilization, Therapeutic Activities, Therapeutic Exercises Next Visit Focus/Plan Next Note Type Treatment Note Next Visit Plan Strengthening, gait training, gait speed, balance training
--- NOTE | 2019-08-16 10:27 | PT.OTN ---
Current Diagnoses Cerebral infarction, unspecified (08/16/19) Muscle weakness (generalized) (08/16/19) Other abnormalities of gait and mobility (08/16/19) Physical Therapy Treatment Note PT-OP-A Visit Information Start: 03/13/19 11:58 Freq: Status: Active Protocol: Document 08/16/19 09:45 DCW (Rec: 08/16/19 10:27 DCW [id number]) Out-Patient Physical Therapy Visit Information Visit Information Visit Type Treatment Note Visit Note 08/26 Visit Start Time 09:45 Visit Stop Time 10:30 Total Visit Minutes 45 Visit Number 24 Number of BULK SYSTEM OPERATOR Visits 0 Evaluation Information Evaluation Date 03/13/19 PT-OP-B Current Condition Start: 03/13/19 11:58 Freq: Status: Active Protocol: Document 03/13/19 11:15 DCW (Rec: 03/13/19 12:27 DCW [id number]) Current Condition History of Current Condition Onset Date Multi-year history Current Complaints Fatigue, weakness, imbalance, decreased gait speed History of Current Condition Pt is a 78 year old female well known to this clinic presenting with what she calls a loss of ground following her last round of physical therapy earlier in the year. Pt has a history of 5 separate CVAs, and feels her largest problem is her very slow gait speed, as well as weakness. Her slow gait speed is a long- standing issue which has previously been addressed at physical therapy, and she has shown some improvement, but typically does not perform a lot of HEP following discharge , and typically then regresses . 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 Prior Treatments and Tests Multiple rounds of physical therapy Treatment Goals Patient/Caregiver Goals Improve strengh and gait speed Prior Functional Status Baseline Function- ADL's Needs Assist Baseline Function- Mobility Needs Assist Baseline Function- Gait Very slow gait with bilateral walking sticks PT-OP-C Subjective Start: 03/13/19 11:58 Freq: Status: Active Protocol: Document 08/16/19 09:45 DCW (Rec: 08/16/19 10:27 DCW [id number]) OP-PT Subjective Patient Comments Patient Comments Pt notes she is very tired today, but that's what happens when I don't come to therapy for a while. PT-OP-D Balance Start: 03/13/19 11:58 Freq: Status: Active Protocol: Document 06/05/19 12:00 DCW (Rec: 06/05/19 12:38 DCW [id number]) OP-PT Balance Assessment Sitting Balance Static Sitting Balance Ability Good Dynamic Sitting Balance Ability Good Standing Balance Static Standing Balance Ability Fair Dynamic Standing Balance Ability Fair Tinetti Balance Assessment Sitting Balance Sitting Balance Steady, safe Arising from Chair Ability to Arise Able, uses arms to help Attempts to Arise Arises on 1st attempt Standing Balance Immediate Standing Balance Steady w/o support Standing Balance Narrow stance w/o support Nudged Response Steady Standing with Eyes Closed Steady Turning Step Pattern Turning 360 Degrees Discontinuous steps Stability Turning 360 Degrees Steady Sitting Down Sitting Down Uses arms or unsteady Gait and Step Initiation of Gait No hesitancy Right Foot Step Length Does pass stance foot Right Foot Step Height Does not clear floor Left Foot Step Length Does pass stance foot Left Foot Step Height Does not clear floor Step Description Step Symmetry Step length appears equal Step Continuity Steps appear continuous Gait Description Path Description Mild/moderate deviation Trunk Description No sway but posturing Walking Stance Heels apart Scoring and Interpretation Tinetti Composite Score (points) 20 Interpretation of Scores At risk for falls (19-24) Tinetti Impairment Rating from Composite 20 to <40% Impaired (Score 17- Score 22) Vann Fall Scale Copyright Permission PT-OP-E Functional Tests Start: 03/13/19 11:58 Freq: Status: Active Protocol: Document 06/05/19 12:00 DCW (Rec: 06/05/19 12:38 DCW [id number]) Functional Tests 2 Minute Walk Test Distance 163' Device Used Bilateral walking sticks Comments 1.36 Timed Up and Go (TUG) Score 20.15 Comments 3-trial average (19.38, 22.40, 18.66) TUG Impairment Rating 100% Impaired (Score 20) Tinetti Balance and Gait Assessment Balance Score 13 Gait Score 7 Composite Score 20 Balance Score Impairment Rating 1 to <20% Impaired (Score 13- 15) Gait Score Impairment Rating 40 to <60% Impaired (Score 5-7 ) Composite Score Impairment Rating 20 to <40% Impaired (Score 17- 22) PT-OP-M Strength Start: 03/13/19 11:58 Freq: Status: Active Protocol: Document 06/05/19 12:00 DCW (Rec: 06/05/19 12:38 DCW [id number]) Hip Strength Hip Manual Muscle Testing Right Flexion (L2) 4 Good Abduction 4+ Good+ Adduction 4 Good Left Flexion (L2) 4+ Good+ Abduction 4 Good Adduction 4+ Good+ Knee Strength Knee Manual Muscle Testing Right Flexion (S2) 5 Normal Extension (L3) 4+ Good+ Left Flexion (S2) 4+ Good+ Extension (L3) 4+ Good+ Ankle/Foot Strength Ankle and Foot Manual Muscle Testing Right Dorsiflexion (L4) 4+ Good+ Plantarflexion (S1) 4 Good Left Dorsiflexion (L4) 4 Good Plantarflexion (S1) 4 Good PT-OP-Q Treatments Start: 03/13/19 11:58 Freq: Status: Active Protocol: Document 08/16/19 09:45 DCW (Rec: 08/16/19 10:27 DCW [id number]) Cardio Equipment Recumbent Elliptical (Biodex) Duration (Minutes) 5 Resistance 4 Seat Position 8 Therapeutic Exercises Other Exercises Retro Ambulation Other Exercise Name Retro Ambulation Equipment Used // bars Side-stepping Other Exercise Name Side-stepping at rail Resistance none Equipment Used // bars Gait Training Gait Activity Stride length Description Step count over specific distance Device Used Walking sticks Distance/Duration 20' course Comments # of steps: 12->11->11->12->12 ->12 Gait speed training Description 170' x2 Device Used Walking sticks Treatment Focus Increased gait speed, increased stride length Comments 170' time: 131.39 (1.29 ft/ sec); 168.10 (1.01 ft/sec) PT-OP-T Assessment and Plan Start: 03/13/19 11:58 Freq: Status: Active Protocol: Document 08/16/19 09:45 DCW (Rec: 08/16/19 10:27 DCW [id number]) Physical Therapy Assessment Impairments Impairments Activity Tolerance,Balance, Functional Activities, Functional Mobility,Gait, Posture,Strength,Transfers Goals Five Impairment TUG score of 20.15 seconds Usp Goal (LTG) Pt to score at least 15 seconds on the TUG LTG Duration 08/05/19 Four Impairment Tinetti Short Term Goal (STG) Pt to score at least 20/28 on Tinetti Balance Assessment STG Duration Met Release Of Information Clerk Goal (LTG) Pt to score at least 24/28 on Tinetti Balance Assessment LTG Duration 08/05/19 Three Impairment LE MMT Short Term Goal (STG) Pt LE MMT grossly to 4/5 in order to improve balance and activity tolerance STG Duration Met Usp Goal (LTG) Pt LE MMT grossly to 4+/5 in order to improve balance and activity tolerance LTG Duration 08/05/19 Two Impairment Gait speed of 1.36 ft/sec during two minute walk test Short Term Goal (STG) Pt gait speed to 1.2 ft/sec (2 MWT distance of 144'). STG Duration Met Usp Goal (LTG) Pt gait speed to 1.6 ft/sec (2 MWT distance of 192'). A gait speed of less than 1.97 indicates a greater likelihood of further functional decline in older adults LTG Duration 08/05/19 One Impairment Pt does not have an appropriate home exercise program Short Term Goal (STG) Pt to be independent and compliant with an appropriate HEP STG Duration Met Assessment Summary Assessment Pt's performance fairly uneven today, she had a very hard time with fatigue and poor pacing while walking her laps, however then did very well with taking bigger steps over the 20' course set out for her Physical Therapy Plan Frequency and Duration Frequency of Treatment 2x/Week Duration of Treatment 12 weeks Plan of Care Start Date 06/05/19 Plan of Care End Date 08/26/19 Therapeutic Interventions Therapeutic Interventions Aquatic Therapy,Balance Training,Home Exercise Program ,Neuromuscular Re-education, Patient/Caregiver Education, Self-Care/Home Management,Soft Tissue Mobilization, Therapeutic Activities, Therapeutic Exercises Next Visit Focus/Plan Next Note Type Treatment Note Next Visit Plan Strengthening, gait training, gait speed, balance training
--- NOTE | 2019-08-21 12:47 | PT.OTN ---
Current Diagnoses Cerebral infarction, unspecified (08/21/19) Muscle weakness (generalized) (08/21/19) Other abnormalities of gait and mobility (08/21/19) Physical Therapy Treatment Note PT-OP-A Visit Information Start: 03/13/19 11:58 Freq: Status: Active Protocol: Document 08/21/19 12:00 DCW (Rec: 08/21/19 12:47 DCW [id number]) Out-Patient Physical Therapy Visit Information Visit Information Visit Type Treatment Note Visit Note 09/23 Visit Start Time 12:00 Visit Stop Time 12:45 Total Visit Minutes 45 Visit Number 25 Number of WASHER HAND Visits 0 Evaluation Information Evaluation Date 03/13/19 PT-OP-B Current Condition Start: 03/13/19 11:58 Freq: Status: Active Protocol: Document 03/13/19 11:15 DCW (Rec: 03/13/19 12:27 DCW [id number]) Current Condition History of Current Condition Onset Date Multi-year history Current Complaints Fatigue, weakness, imbalance, decreased gait speed History of Current Condition Pt is a 78 year old female well known to this clinic presenting with what she calls a loss of ground following her last round of physical therapy earlier in the year. Pt has a history of 5 separate CVAs, and feels her largest problem is her very slow gait speed, as well as weakness. Her slow gait speed is a long- standing issue which has previously been addressed at physical therapy, and she has shown some improvement, but typically does not perform a lot of HEP following discharge , and typically then regresses . 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 Prior Treatments and Tests Multiple rounds of physical therapy Treatment Goals Patient/Caregiver Goals Improve strengh and gait speed Prior Functional Status Baseline Function- ADL's Needs Assist Baseline Function- Mobility Needs Assist Baseline Function- Gait Very slow gait with bilateral walking sticks PT-OP-C Subjective Start: 03/13/19 11:58 Freq: Status: Active Protocol: Document 08/21/19 12:00 DCW (Rec: 08/21/19 12:47 DCW [id number]) OP-PT Subjective Patient Comments Patient Comments I feel pretty good, I was able to sleep in, and I got some food in me. PT-OP-D Balance Start: 03/13/19 11:58 Freq: Status: Active Protocol: Document 06/05/19 12:00 DCW (Rec: 06/05/19 12:38 DCW [id number]) OP-PT Balance Assessment Sitting Balance Static Sitting Balance Ability Good Dynamic Sitting Balance Ability Good Standing Balance Static Standing Balance Ability Fair Dynamic Standing Balance Ability Fair Tinetti Balance Assessment Sitting Balance Sitting Balance Steady, safe Arising from Chair Ability to Arise Able, uses arms to help Attempts to Arise Arises on 1st attempt Standing Balance Immediate Standing Balance Steady w/o support Standing Balance Narrow stance w/o support Nudged Response Steady Standing with Eyes Closed Steady Turning Step Pattern Turning 360 Degrees Discontinuous steps Stability Turning 360 Degrees Steady Sitting Down Sitting Down Uses arms or unsteady Gait and Step Initiation of Gait No hesitancy Right Foot Step Length Does pass stance foot Right Foot Step Height Does not clear floor Left Foot Step Length Does pass stance foot Left Foot Step Height Does not clear floor Step Description Step Symmetry Step length appears equal Step Continuity Steps appear continuous Gait Description Path Description Mild/moderate deviation Trunk Description No sway but posturing Walking Stance Heels apart Scoring and Interpretation Tinetti Composite Score (points) 20 Interpretation of Scores At risk for falls (19-24) Tinetti Impairment Rating from Composite 20 to <40% Impaired (Score 17- Score 22) Vann Fall Scale Copyright Permission PT-OP-E Functional Tests Start: 03/13/19 11:58 Freq: Status: Active Protocol: Document 06/05/19 12:00 DCW (Rec: 06/05/19 12:38 DCW [id number]) Functional Tests 2 Minute Walk Test Distance 163' Device Used Bilateral walking sticks Comments 1.36 Timed Up and Go (TUG) Score 20.15 Comments 3-trial average (19.38, 22.40, 18.66) TUG Impairment Rating 100% Impaired (Score 20) Tinetti Balance and Gait Assessment Balance Score 13 Gait Score 7 Composite Score 20 Balance Score Impairment Rating 1 to <20% Impaired (Score 13- 15) Gait Score Impairment Rating 40 to <60% Impaired (Score 5-7 ) Composite Score Impairment Rating 20 to <40% Impaired (Score 17- 22) PT-OP-M Strength Start: 03/13/19 11:58 Freq: Status: Active Protocol: Document 06/05/19 12:00 DCW (Rec: 06/05/19 12:38 DCW [id number]) Hip Strength Hip Manual Muscle Testing Right Flexion (L2) 4 Good Abduction 4+ Good+ Adduction 4 Good Left Flexion (L2) 4+ Good+ Abduction 4 Good Adduction 4+ Good+ Knee Strength Knee Manual Muscle Testing Right Flexion (S2) 5 Normal Extension (L3) 4+ Good+ Left Flexion (S2) 4+ Good+ Extension (L3) 4+ Good+ Ankle/Foot Strength Ankle and Foot Manual Muscle Testing Right Dorsiflexion (L4) 4+ Good+ Plantarflexion (S1) 4 Good Left Dorsiflexion (L4) 4 Good Plantarflexion (S1) 4 Good PT-OP-Q Treatments Start: 03/13/19 11:58 Freq: Status: Active Protocol: Document 08/21/19 12:00 GAW (Rec: 08/21/19 12:47 [facility] [id number]) Cardio Equipment Recumbent Elliptical (Biodex) Duration (Minutes) 6 Resistance 4 Seat Position 7 Therapeutic Exercises Other Exercises Retro Ambulation Other Exercise Name Retro Ambulation Equipment Used // bars Side-stepping Other Exercise Name Side-stepping at rail Resistance none Equipment Used // bars Gait Training Gait Activity Stride length Description Step count over specific distance Device Used Walking sticks Distance/Duration 20' course Comments # of steps: 12->12->12->14->13 ->13 Gait speed training Description 170' x2 Device Used Walking sticks Treatment Focus Increased gait speed, increased stride length Comments 170' time: 164.59 (1.03 ft/ sec); 162.29 (1.05 ft/sec) PT-OP-T Assessment and Plan Start: 03/13/19 11:58 Freq: Status: Active Protocol: Document 08/21/19 12:00 DCW (Rec: 08/21/19 12:47 GAW [id number]) Physical Therapy Assessment Impairments Impairments Activity Tolerance,Balance, Functional Activities, Functional Mobility,Gait, Posture,Strength,Transfers Goals Five Impairment TUG score of 20.15 seconds Skilled Nursing Goal (LTG) Pt to score at least 15 seconds on the TUG LTG Duration 08/27/19 Four Impairment Tinetti Short Term Goal (STG) Pt to score at least 20/28 on Tinetti Balance Assessment STG Duration Met Skilled Nursing Goal (LTG) Pt to score at least 24/28 on Tinetti Balance Assessment LTG Duration 2/11/20 Three Impairment LE MMT Short Term Goal (STG) Pt LE MMT grossly to 4/5 in order to improve balance and activity tolerance STG Duration Met Audit Machine Operator Goal (LTG) Pt LE MMT grossly to 4+/5 in order to improve balance and activity tolerance LTG Duration 08/27/19 Two Impairment Gait speed of 1.36 ft/sec during two minute walk test Short Term Goal (STG) Pt gait speed to 1.2 ft/sec (2 MWT distance of 144'). STG Duration Met Skilled Nursing Goal (LTG) Pt gait speed to 1.6 ft/sec (2 MWT distance of 192'). A gait speed of less than 1.97 indicates a greater likelihood of further functional decline in older adults LTG Duration 08/27/19 One Impairment Pt does not have an appropriate home exercise program Short Term Goal (STG) Pt to be independent and compliant with an appropriate HEP STG Duration Met Assessment Summary Assessment Pt again had increased difficulty with her walking today. Has been quite slow performing her 170' lap around the gym recently. Next visit is her reassessment, will hopefully be feeling more energetic. Physical Therapy Plan Frequency and Duration Frequency of Treatment 2x/Week Duration of Treatment 12 weeks Plan of Care Start Date 06/05/19 Plan of Care End Date 08/26/19 Therapeutic Interventions Therapeutic Interventions Aquatic Therapy,Balance Training,Home Exercise Program ,Neuromuscular Re-education, Patient/Caregiver Education, Self-Care/Home Management,Soft Tissue Mobilization, Therapeutic Activities, Therapeutic Exercises Next Visit Focus/Plan Next Note Type Progress Note Next Visit Plan Strengthening, gait training, gait speed, balance training
--- NOTE | 2019-08-23 12:47 | PT.OTN ---
Current Diagnoses Cerebral infarction, unspecified (08/23/19) Muscle weakness (generalized) (08/23/19) Other abnormalities of gait and mobility (08/23/19) Physical Therapy Treatment Note PT-OP-A Visit Information Start: 03/13/19 11:58 Freq: Status: Active Protocol: Document 08/23/19 12:00 DCW (Rec: 08/23/19 12:47 DCW [id number]) Out-Patient Physical Therapy Visit Information Visit Information Visit Type Treatment Note Visit Note 10/24 Visit Start Time 12:00 Visit Stop Time 12:45 Total Visit Minutes 45 Visit Number 26 Number of SALESPERSON RECREATIONAL VEHICLES Visits 0 Evaluation Information Evaluation Date 03/13/19 PT-OP-B Current Condition Start: 03/13/19 11:58 Freq: Status: Active Protocol: Document 03/13/19 11:15 DCW (Rec: 03/13/19 12:27 DCW [id number]) Current Condition History of Current Condition Onset Date Multi-year history Current Complaints Fatigue, weakness, imbalance, decreased gait speed History of Current Condition Pt is a 78 year old female well known to this clinic presenting with what she calls a loss of ground following her last round of physical therapy earlier in the year. Pt has a history of 5 separate CVAs, and feels her largest problem is her very slow gait speed, as well as weakness. Her slow gait speed is a long- standing issue which has previously been addressed at physical therapy, and she has shown some improvement, but typically does not perform a lot of HEP following discharge , and typically then regresses . Pt does note she has been working with a net trainer in the local pool, and has begun attending gentle yoga classes, as well as a dancing class for people with disabilities. Prior Treatments and Tests Multiple rounds of physical therapy Treatment Goals Patient/Caregiver Goals Improve strengh and gait speed Prior Functional Status Baseline Function- ADL's Needs Assist Baseline Function- Mobility Needs Assist Baseline Function- Gait Very slow gait with bilateral walking sticks PT-OP-C Subjective Start: 03/13/19 11:58 Freq: Status: Active Protocol: Document 08/23/19 12:00 DCW (Rec: 08/23/19 12:47 DCW [id number]) OP-PT Subjective Patient Comments Patient Comments Pt reports she is very fatigued today, requests that we do something other than walking. PT-OP-D Balance Start: 03/13/19 11:58 Freq: Status: Active Protocol: Document 06/05/19 12:00 DCW (Rec: 06/05/19 12:38 DCW [id number]) OP-PT Balance Assessment Sitting Balance Static Sitting Balance Ability Good Dynamic Sitting Balance Ability Good Standing Balance Static Standing Balance Ability Fair Dynamic Standing Balance Ability Fair Tinetti Balance Assessment Sitting Balance Sitting Balance Steady, safe Arising from Chair Ability to Arise Able, uses arms to help Attempts to Arise Arises on 1st attempt Standing Balance Immediate Standing Balance Steady w/o support Standing Balance Narrow stance w/o support Nudged Response Steady Standing with Eyes Closed Steady Turning Step Pattern Turning 360 Degrees Discontinuous steps Stability Turning 360 Degrees Steady Sitting Down Sitting Down Uses arms or unsteady Gait and Step Initiation of Gait No hesitancy Right Foot Step Length Does pass stance foot Right Foot Step Height Does not clear floor Left Foot Step Length Does pass stance foot Left Foot Step Height Does not clear floor Step Description Step Symmetry Step length appears equal Step Continuity Steps appear continuous Gait Description Path Description Mild/moderate deviation Trunk Description No sway but posturing Walking Stance Heels apart Scoring and Interpretation Tinetti Composite Score (points) 20 Interpretation of Scores At risk for falls (19-24) Tinetti Impairment Rating from Composite 20 to <40% Impaired (Score 17- Score 22) Vann Fall Scale Copyright Permission PT-OP-E Functional Tests Start: 03/13/19 11:58 Freq: Status: Active Protocol: Document 06/05/19 12:00 DCW (Rec: 06/05/19 12:38 DCW [id number]) Functional Tests 2 Minute Walk Test Distance 163' Device Used Bilateral walking sticks Comments 1.36 Timed Up and Go (TUG) Score 20.15 Comments 3-trial average (19.38, 22.40, 18.66) TUG Impairment Rating 100% Impaired (Score 20) Tinetti Balance and Gait Assessment Balance Score 13 Gait Score 7 Composite Score 20 Balance Score Impairment Rating 1 to <20% Impaired (Score 13- 15) Gait Score Impairment Rating 40 to <60% Impaired (Score 5-7 ) Composite Score Impairment Rating 20 to <40% Impaired (Score 17- 22) PT-OP-M Strength Start: 03/13/19 11:58 Freq: Status: Active Protocol: Document 06/05/19 12:00 DCW (Rec: 06/05/19 12:38 DCW [id number]) Hip Strength Hip Manual Muscle Testing Right Flexion (L2) 4 Good Abduction 4+ Good+ Adduction 4 Good Left Flexion (L2) 4+ Good+ Abduction 4 Good Adduction 4+ Good+ Knee Strength Knee Manual Muscle Testing Right Flexion (S2) 5 Normal Extension (L3) 4+ Good+ Left Flexion (S2) 4+ Good+ Extension (L3) 4+ Good+ Ankle/Foot Strength Ankle and Foot Manual Muscle Testing Right Dorsiflexion (L4) 4+ Good+ Plantarflexion (S1) 4 Good Left Dorsiflexion (L4) 4 Good Plantarflexion (S1) 4 Good PT-OP-Q Treatments Start: 03/13/19 11:58 Freq: Status: Active Protocol: Document 08/23/19 12:00 DCW (Rec: 08/23/19 12:47 DCW [id number]) Cardio Equipment Recumbent Elliptical (Biodex) Duration (Minutes) 6 Resistance 4 Seat Position 8 Therapeutic Exercises Standing Exercises Heel raises Standing Exercise Name Heel raises @ rail Hamstring Curls Standing Exercise Name HS Curls Side bilateral Resistance 5# Hip Abduction Standing Exercise Name Abduction Side bilateral Resistance 5# Marching Standing Exercise Name Marching Side bilateral Resistance 5# Other Exercises Retro Ambulation Other Exercise Name Retro Ambulation Equipment Used // bars Side-stepping Other Exercise Name Side-stepping at rail Resistance none Equipment Used // bars Neuro Re-Education Treatment Balance Activities Foam Stance Details Double leg stance on foam Surface Silva foam Comments EO/EC, Head turns Semi-tandem Stance Details Tandem Equipment @ rail PT-OP-T Assessment and Plan Start: 03/13/19 11:58 Freq: Status: Active Protocol: Document 08/23/19 12:00 DCW (Rec: 08/23/19 12:47 DCW [id number]) Physical Therapy Assessment Impairments Impairments Activity Tolerance,Balance, Functional Activities, Functional Mobility,Gait, Posture,Strength,Transfers Goals Five Impairment TUG score of 20.15 seconds Stencil Cutter Machine Goal (LTG) Pt to score at least 15 seconds on the TUG LTG Duration 08/27/19 Four Impairment Tinetti Short Term Goal (STG) Pt to score at least 20/28 on Tinetti Balance Assessment STG Duration Met Mcfp Goal (LTG) Pt to score at least 24/28 on Tinetti Balance Assessment LTG Duration 08/27/19 Three Impairment LE MMT Short Term Goal (STG) Pt LE MMT grossly to 4/5 in order to improve balance and activity tolerance STG Duration Met Mcfp Goal (LTG) Pt LE MMT grossly to 4+/5 in order to improve balance and activity tolerance LTG Duration 08/27/19 Two Impairment Gait speed of 1.36 ft/sec during two minute walk test Short Term Goal (STG) Pt gait speed to 1.2 ft/sec (2 MWT distance of 144'). STG Duration Met Stencil Cutter Machine Goal (LTG) Pt gait speed to 1.6 ft/sec (2 MWT distance of 192'). A gait speed of less than 1.97 indicates a greater likelihood of further functional decline in older adults LTG Duration 08/27/19 One Impairment Pt does not have an appropriate home exercise program Short Term Goal (STG) Pt to be independent and compliant with an appropriate HEP STG Duration Met Assessment Summary Assessment Pt not able to participate as much as usual today, required increased rest breaks. Physical Therapy Plan Frequency and Duration Frequency of Treatment 2x/Week Duration of Treatment 12 weeks Plan of Care Start Date 06/05/19 Plan of Care End Date 08/26/19 Therapeutic Interventions Therapeutic Interventions Aquatic Therapy,Balance Training,Home Exercise Program ,Neuromuscular Re-education, Patient/Caregiver Education, Self-Care/Home Management,Soft Tissue Mobilization, Therapeutic Activities, Therapeutic Exercises Next Visit Focus/Plan Next Note Type Progress Note Next Visit Plan Strengthening, gait training, gait speed, balance training
--- NOTE | 2019-08-27 12:21 | PT.OTN ---
Current Diagnoses Cerebral infarction, unspecified (08/27/19) Muscle weakness (generalized) (08/27/19) Other abnormalities of gait and mobility (08/27/19) Physical Therapy Treatment Note PT-OP-A Visit Information Start: 03/13/19 11:58 Freq: Status: Active Protocol: Document 08/27/19 09:45 DCW (Rec: 08/27/19 12:21 DCW [id number]) Out-Patient Physical Therapy Visit Information Visit Information Visit Type Progress Note Visit Start Time 09:45 Visit Stop Time 10:30 Total Visit Minutes 45 Visit Number 27 Number of ECONOMIC GEOGRAPHER Visits 0 Evaluation Information Evaluation Date 03/13/19 PT-OP-B Current Condition Start: 03/13/19 11:58 Freq: Status: Active Protocol: Document 03/13/19 11:15 DCW (Rec: 03/13/19 12:27 DCW [id number]) Current Condition History of Current Condition Onset Date Multi-year history Current Complaints Fatigue, weakness, imbalance, decreased gait speed History of Current Condition Pt is a 78 year old female well known to this clinic presenting with what she calls a loss of ground following her last round of physical therapy earlier in the year. Pt has a history of 5 separate CVAs, and feels her largest problem is her very slow gait speed, as well as weakness. Her slow gait speed is a long- standing issue which has previously been addressed at physical therapy, and she has shown some improvement, but typically does not perform a lot of HEP following discharge , and typically then regresses . Pt does note she has been working with a medical management trainer in the local pool, and has begun attending gentle yoga classes, as well as a dancing class for people with disabilities. Prior Treatments and Tests Multiple rounds of physical therapy Treatment Goals Patient/Caregiver Goals Improve strengh and gait speed Prior Functional Status Baseline Function- ADL's Needs Assist Baseline Function- Mobility Needs Assist Baseline Function- Gait Very slow gait with bilateral walking sticks PT-OP-C Subjective Start: 03/13/19 11:58 Freq: Status: Active Protocol: Document 08/27/19 09:45 DCW (Rec: 08/27/19 12:21 DCW [id number]) OP-PT Subjective Patient Comments Patient Comments I feel the same, I'm still really fatigued. PT-OP-D Balance Start: 03/13/19 11:58 Freq: Status: Active Protocol: Document 08/27/19 09:45 DCW (Rec: 08/27/19 10:22 DCW [id number]) OP-PT Balance Assessment Sitting Balance Static Sitting Balance Ability Good Dynamic Sitting Balance Ability Good Standing Balance Static Standing Balance Ability Fair Dynamic Standing Balance Ability Good Tinetti Balance Assessment Sitting Balance Sitting Balance Steady, safe Arising from Chair Ability to Arise Able, uses arms to help Attempts to Arise Arises on 1st attempt Standing Balance Immediate Standing Balance Steady w/o support Standing Balance Narrow stance w/o support Nudged Response Steady Standing with Eyes Closed Steady Turning Step Pattern Turning 360 Degrees Discontinuous steps Stability Turning 360 Degrees Steady Sitting Down Sitting Down Uses arms or unsteady Gait and Step Initiation of Gait No hesitancy Right Foot Step Length Does pass stance foot Right Foot Step Height Completely clears floor Left Foot Step Length Does pass stance foot Left Foot Step Height Completely clears floor Step Description Step Symmetry Step length appears equal Step Continuity Steps appear continuous Gait Description Path Description Straight Trunk Description No sway but posturing Walking Stance Heels together Scoring and Interpretation Tinetti Composite Score (points) 24 Interpretation of Scores At risk for falls (19-24) Tinetti Impairment Rating from Composite 1 to <20% Impaired (Score 23- Score 27) Vann Fall Scale Copyright Permission PT-OP-E Functional Tests Start: 03/13/19 11:58 Freq: Status: Active Protocol: Document 08/27/19 09:45 DCW (Rec: 08/27/19 10:21 DCW [id number]) Functional Tests 2 Minute Walk Test Distance 166' Device Used Bilateral walking sticks Comments 1.38 Timed Up and Go (TUG) Score 20.83 Comments 3-trial average (21.58, 20.39, 19.98) TUG Impairment Rating 100% Impaired (Score 20) Tinetti Balance and Gait Assessment Balance Score 13 Gait Score 11 Composite Score 24 Balance Score Impairment Rating 1 to <20% Impaired (Score 13- 15) Gait Score Impairment Rating 1 to <20% Impaired (Score 10- 11) Composite Score Impairment Rating 1 to <20% Impaired (Score 23- 27) PT-OP-M Strength Start: 03/13/19 11:58 Freq: Status: Active Protocol: Document 08/27/19 09:45 DCW (Rec: 08/27/19 10:21 DCW [id number]) Hip Strength Hip Manual Muscle Testing Right Flexion (L2) 4 Good Abduction 4+ Good+ Adduction 4 Good Left Flexion (L2) 4+ Good+ Abduction 4+ Good+ Adduction 4+ Good+ Knee Strength Knee Manual Muscle Testing Right Flexion (S2) 5 Normal Extension (L3) 4+ Good+ Left Flexion (S2) 5 Normal Extension (L3) 5 Normal Ankle/Foot Strength Ankle and Foot Manual Muscle Testing Right Dorsiflexion (L4) 4+ Good+ Plantarflexion (S1) 4 Good Left Dorsiflexion (L4) 4+ Good+ Plantarflexion (S1) 4 Good PT-OP-Q Treatments Start: 03/13/19 11:58 Freq: Status: Active Protocol: Document 08/27/19 09:45 DCW (Rec: 08/27/19 12:21 DCW [id number]) Cardio Equipment Recumbent Elliptical (Biodex) Duration (Minutes) 5 Resistance 4 Seat Position 8 Neuro Re-Education Treatment Other Activities Peterson testing Details Tinetti, TUG, 2 MWT PT-OP-T Assessment and Plan Start: 03/13/19 11:58 Freq: Status: Active Protocol: Document 08/27/19 09:45 DCW (Rec: 08/27/19 12:21 DCW [id number]) Physical Therapy Assessment Impairments Impairments Activity Tolerance,Balance, Functional Activities, Functional Mobility,Gait, Posture,Strength,Transfers Goals Five Impairment TUG score of 20.15 seconds Stuffed Casing Tier Goal (LTG) Pt to score at least 15 seconds on the TUG LTG Duration 10/08/19 - Minimal change Four Impairment Tinetti Short Term Goal (STG) Pt to score at least 20/28 on Tinetti Balance Assessment STG Duration Met Retirement Goal (LTG) Pt to score at least 24/28 on Tinetti Balance Assessment LTG Duration Met Three Impairment LE MMT Short Term Goal (STG) Pt LE MMT grossly to 4/5 in order to improve balance and activity tolerance STG Duration Met Stuffed Casing Tier Goal (LTG) Pt LE MMT grossly to 4+/5 in order to improve balance and activity tolerance LTG Duration 10/08/19 Two Impairment Gait speed of 1.38 ft/sec during two minute walk test Short Term Goal (STG) Pt gait speed to 1.2 ft/sec (2 MWT distance of 144'). STG Duration Met Retirement Goal (LTG) Pt gait speed to 1.6 ft/sec (2 MWT distance of 192'). A gait speed of less than 1.97 indicates a greater likelihood of further functional decline in older adults LTG Duration 10/08/19 One Impairment Pt does not have an appropriate home exercise program Short Term Goal (STG) Pt to be independent and compliant with an appropriate HEP STG Duration Met Assessment Summary Assessment Pt's Tinetti score has greatly improved from her initial evaluation score of 1528 to a current score of . Pt's gait speed has improved from . 75 ft/sec from her initial eval to 1.38 ft/sec currently, however has not changed since her last reassessment 12 weeks ago. Pt may have reached her progress plateau, however during this most recent POC, she had gotten up to a speed more than 1.5 ft/sec, with a highest speed of 1.72 ft/sec. Would like to continue to work to see if pt can reach this speed once again, however if she does not make any progress over the next 6 weeks, she has likely reached her plateau and will be discharged at that time. Physical Therapy Plan Frequency and Duration Frequency of Treatment 2x/Week Duration of Treatment 6 weeks Plan of Care Start Date 08/27/19 Plan of Care End Date 10/08/19 Therapeutic Interventions Therapeutic Interventions Aquatic Therapy,Balance Training,Home Exercise Program ,Neuromuscular Re-education, Patient/Caregiver Education, Self-Care/Home Management,Soft Tissue Mobilization, Therapeutic Activities, Therapeutic Exercises Next Visit Focus/Plan Next Note Type Treatment Note Next Visit Plan Strengthening, gait training, gait speed, balance training
--- NOTE | 2019-08-27 12:22 | PT.OPPOC ---
Physical, Occupational & Speech Therapy At [facility] Current Diagnoses Cerebral infarction, unspecified (08/27/19) Muscle weakness (generalized) (08/27/19) Other abnormalities of gait and mobility (08/27/19) Visit Care Team Role Provider Type Conchita Felipe PA-C Attending Provider Advanced Trucker Hand Primary Care Provider Specialty: Internal Medicine Address: [address] [place] [address], [facility] Email: [email or web address] Plan Of Care PT-OP-T Assessment and Plan Start: 03/13/19 11:58 Freq: Status: Active Protocol: Document 08/27/19 09:45 DCW (Rec: 08/27/19 12:21 DCW [id number]) Physical Therapy Assessment Impairments Impairments Activity Tolerance,Balance, Functional Activities, Functional Mobility,Gait, Posture,Strength,Transfers Goals Five Impairment TUG score of 20.15 seconds Mcfp Goal (LTG) Pt to score at least 15 seconds on the TUG LTG Duration 10/08/19 - Minimal change Four Impairment Tinetti Short Term Goal (STG) Pt to score at least 20/28 on Tinetti Balance Assessment STG Duration Met Staff Development Coordinator Rn Goal (LTG) Pt to score at least 24/28 on Tinetti Balance Assessment LTG Duration Met Three Impairment LE MMT Short Term Goal (STG) Pt LE MMT grossly to 4/5 in order to improve balance and activity tolerance STG Duration Met Staff Development Coordinator Rn Goal (LTG) Pt LE MMT grossly to 4+/5 in order to improve balance and activity tolerance LTG Duration 10/08/19 Two Impairment Gait speed of 1.38 ft/sec during two minute walk test Short Term Goal (STG) Pt gait speed to 1.2 ft/sec (2 MWT distance of 144'). STG Duration Met Mcfp Goal (LTG) Pt gait speed to 1.6 ft/sec (2 MWT distance of 192'). A gait speed of less than 1.97 indicates a greater likelihood of further functional decline in older adults LTG Duration 10/08/19 One Impairment Pt does not have an appropriate home exercise program Short Term Goal (STG) Pt to be independent and compliant with an appropriate HEP STG Duration Met Assessment Summary Assessment Pt's Tinetti score has greatly improved from her initial evaluation score of 15/28 to a current score of 24/28. Pt's gait speed has improved from . 75 ft/sec from her initial eval to 1.38 ft/sec currently, however has not changed since her last reassessment 12 weeks ago. Pt may have reached her progress plateau, however during this most recent POC, she had gotten up to a speed more than 1.5 ft/sec, with a highest speed of 1.72 ft/sec. Would like to continue to work to see if pt can reach this speed once again, however if she does not make any progress over the next 6 weeks, she has likely reached her plateau and will be discharged at that time. Physical Therapy Plan Frequency and Duration Frequency of Treatment 2x/Week Duration of Treatment 6 weeks Plan of Care Start Date 08/27/19 Plan of Care End Date 10/08/19 Therapeutic Interventions Therapeutic Interventions Aquatic Therapy,Balance Training,Home Exercise Program ,Neuromuscular Re-education, Patient/Caregiver Education, Self-Care/Home Management,Soft Tissue Mobilization, Therapeutic Activities, Therapeutic Exercises Next Visit Focus/Plan Next Note Type Treatment Note Next Visit Plan Strengthening, gait training, gait speed, balance training Plan of Care Dates Plan of Care Start Date 08/27/19 Plan of Care End Date 10/08/19 Electronically Signed by: Marv Holcomb, PT 08/27/19 [id number] Please Sign and Return: I have reviewed this Plan of Care and certify that the skilled therapy services above are required to meet the patient?s needs. Physician Signature Date Printed Name and Credentials Clinical Instructor Signature Printed Name and Credentials
--- NOTE | 2019-09-03 11:57 | PT.OTN ---
Current Diagnoses Cerebral infarction, unspecified (09/03/19) Muscle weakness (generalized) (09/03/19) Other abnormalities of gait and mobility (09/03/19) Physical Therapy Treatment Note PT-OP-A Visit Information Start: 03/13/19 11:58 Freq: Status: Active Protocol: Document 09/03/19 11:15 DCW (Rec: 09/03/19 11:57 DCW [id number]) Out-Patient Physical Therapy Visit Information Visit Information Visit Type Treatment Note Visit Note 08/26 Visit Start Time 11:15 Visit Stop Time 12:00 Total Visit Minutes 45 Visit Number 28 Number of ORACLE APPLICATIONS ANALYST Visits 0 Evaluation Information Evaluation Date 03/13/19 PT-OP-B Current Condition Start: 03/13/19 11:58 Freq: Status: Active Protocol: Document 03/13/19 11:15 DCW (Rec: 03/13/19 12:27 DCW [id number]) Current Condition History of Current Condition Onset Date Multi-year history Current Complaints Fatigue, weakness, imbalance, decreased gait speed History of Current Condition Pt is a 78 year old female well known to this clinic presenting with what she calls a loss of ground following her last round of physical therapy earlier in the year. Pt has a history of 5 separate CVAs, and feels her largest problem is her very slow gait speed, as well as weakness. Her slow gait speed is a long- standing issue which has previously been addressed at physical therapy, and she has shown some improvement, but typically does not perform a lot of HEP following discharge , and typically then regresses . Pt does note she has been working with a fitness trainer in the local pool, and has begun attending gentle yoga classes, as well as a dancing class for people with disabilities. Prior Treatments and Tests Multiple rounds of physical therapy Treatment Goals Patient/Caregiver Goals Improve strengh and gait speed Prior Functional Status Baseline Function- ADL's Needs Assist Baseline Function- Mobility Needs Assist Baseline Function- Gait Very slow gait with bilateral walking sticks PT-OP-C Subjective Start: 03/13/19 11:58 Freq: Status: Active Protocol: Document 09/03/19 11:15 DCW (Rec: 09/03/19 11:57 DCW [id number]) OP-PT Subjective Patient Comments Patient Comments I had a dentist appointment already today, so I had to get up at 7:30, and I've been awake since then, so I might be more alert than normal. PT-OP-D Balance Start: 03/13/19 11:58 Freq: Status: Active Protocol: Document 08/27/19 09:45 DCW (Rec: 08/27/19 10:22 DCW [id number]) OP-PT Balance Assessment Sitting Balance Static Sitting Balance Ability Good Dynamic Sitting Balance Ability Good Standing Balance Static Standing Balance Ability Fair Dynamic Standing Balance Ability Good Tinetti Balance Assessment Sitting Balance Sitting Balance Steady, safe Arising from Chair Ability to Arise Able, uses arms to help Attempts to Arise Arises on 1st attempt Standing Balance Immediate Standing Balance Steady w/o support Standing Balance Narrow stance w/o support Nudged Response Steady Standing with Eyes Closed Steady Turning Step Pattern Turning 360 Degrees Discontinuous steps Stability Turning 360 Degrees Steady Sitting Down Sitting Down Uses arms or unsteady Gait and Step Initiation of Gait No hesitancy Right Foot Step Length Does pass stance foot Right Foot Step Height Completely clears floor Left Foot Step Length Does pass stance foot Left Foot Step Height Completely clears floor Step Description Step Symmetry Step length appears equal Step Continuity Steps appear continuous Gait Description Path Description Straight Trunk Description No sway but posturing Walking Stance Heels together Scoring and Interpretation Tinetti Composite Score (points) 24 Interpretation of Scores At risk for falls (19-24) Tinetti Impairment Rating from Composite 1 to <20% Impaired (Score 23- Score 27) Vann Fall Scale Copyright Permission PT-OP-E Functional Tests Start: 03/13/19 11:58 Freq: Status: Active Protocol: Document 08/27/19 09:45 DCW (Rec: 08/27/19 10:21 DCW [id number]) Functional Tests 2 Minute Walk Test Distance 166' Device Used Bilateral walking sticks Comments 1.38 Timed Up and Go (TUG) Score 20.83 Comments 3-trial average (21.58, 20.39, 19.98) TUG Impairment Rating 100% Impaired (Score 20) Tinetti Balance and Gait Assessment Balance Score 13 Gait Score 11 Composite Score 24 Balance Score Impairment Rating 1 to <20% Impaired (Score 13- 15) Gait Score Impairment Rating 1 to <20% Impaired (Score 10- 11) Composite Score Impairment Rating 1 to <20% Impaired (Score 23- 27) PT-OP-M Strength Start: 03/13/19 11:58 Freq: Status: Active Protocol: Document 08/27/19 09:45 DCW (Rec: 08/27/19 10:21 DCW [id number]) Hip Strength Hip Manual Muscle Testing Right Flexion (L2) 4 Good Abduction 4+ Good+ Adduction 4 Good Left Flexion (L2) 4+ Good+ Abduction 4+ Good+ Adduction 4+ Good+ Knee Strength Knee Manual Muscle Testing Right Flexion (S2) 5 Normal Extension (L3) 4+ Good+ Left Flexion (S2) 5 Normal Extension (L3) 5 Normal Ankle/Foot Strength Ankle and Foot Manual Muscle Testing Right Dorsiflexion (L4) 4+ Good+ Plantarflexion (S1) 4 Good Left Dorsiflexion (L4) 4+ Good+ Plantarflexion (S1) 4 Good PT-OP-Q Treatments Start: 03/13/19 11:58 Freq: Status: Active Protocol: Document 09/03/19 11:15 DCW (Rec: 09/03/19 11:57 DCW [id number]) Cardio Equipment Recumbent Elliptical ([employer]) Duration (Minutes) 5 Resistance 4 Seat Position 8 Therapeutic Exercises Standing Exercises Hamstring Curls Standing Exercise Name HS Curls Side bilateral Resistance 5# Hip Abduction Standing Exercise Name Abduction Side bilateral Resistance 5# Other Exercises Retro Ambulation Other Exercise Name Retro Ambulation Equipment Used // bars Side-stepping Other Exercise Name Side-stepping at rail Resistance none Equipment Used // bars Gait Training Gait Activity Stride length Description Step count over specific distance Device Used Walking sticks Distance/Duration 20' course Comments # of steps: 11->11->11->11->12 ->11 Gait speed training Description 170' x2 Device Used Walking sticks Treatment Focus Increased gait speed, increased stride length Comments 170' time: 130.65 (1.30 ft/ sec); 132.91 (1.28 ft/sec) PT-OP-T Assessment and Plan Start: 03/13/19 11:58 Freq: Status: Active Protocol: Document 09/03/19 11:15 DCW (Rec: 09/03/19 11:57 DCW [id number]) Physical Therapy Assessment Impairments Impairments Activity Tolerance,Balance, Functional Activities, Functional Mobility,Gait, Posture,Strength,Transfers Goals Five Impairment TUG score of 20.15 seconds Assisted Goal (LTG) Pt to score at least 15 seconds on the TUG LTG Duration 10/08/19 - Minimal change Four Impairment Tinetti Short Term Goal (STG) Pt to score at least 20/28 on Tinetti Balance Assessment STG Duration Met Assisted Goal (LTG) Pt to score at least 24/28 on Tinetti Balance Assessment LTG Duration Met Three Impairment LE MMT Short Term Goal (STG) Pt LE MMT grossly to 4/5 in order to improve balance and activity tolerance STG Duration Met Assisted Goal (LTG) Pt LE MMT grossly to 4+/5 in order to improve balance and activity tolerance LTG Duration 10/08/19 Two Impairment Gait speed of 1.38 ft/sec during two minute walk test Short Term Goal (STG) Pt gait speed to 1.2 ft/sec (2 MWT distance of 144'). STG Duration Met Assisted Goal (LTG) Pt gait speed to 1.6 ft/sec (2 MWT distance of 192'). A gait speed of less than 1.97 indicates a greater likelihood of further functional decline in older adults LTG Duration 10/08/19 One Impairment Pt does not have an appropriate home exercise program Short Term Goal (STG) Pt to be independent and compliant with an appropriate HEP STG Duration Met Assessment Summary Assessment Pt had better gait speed today compared to her recent attempts, but still not up to her best attempts. Still struggling to keep up any speed when on the recumbent elliptical. Physical Therapy Plan Frequency and Duration Frequency of Treatment 2x/Week Duration of Treatment 6 weeks Plan of Care Start Date 08/27/19 Plan of Care End Date 10/08/19 Therapeutic Interventions Therapeutic Interventions Aquatic Therapy,Balance Training,Home Exercise Program ,Neuromuscular Re-education, Patient/Caregiver Education, Self-Care/Home Management,Soft Tissue Mobilization, Therapeutic Activities, Therapeutic Exercises Next Visit Focus/Plan Next Note Type Treatment Note Next Visit Plan Strengthening, gait training, gait speed, balance training
--- NOTE | 2019-09-06 11:57 | PT.OTN ---
Current Diagnoses Cerebral infarction, unspecified (09/06/19) Muscle weakness (generalized) (09/06/19) Other abnormalities of gait and mobility (09/06/19) Physical Therapy Treatment Note PT-OP-A Visit Information Start: 03/13/19 11:58 Freq: Status: Active Protocol: Document 09/06/19 11:15 DCW (Rec: 09/06/19 11:57 DCW [id number]) Out-Patient Physical Therapy Visit Information Visit Information Visit Type Treatment Note Visit Note 09/23 Visit Start Time 11:15 Visit Stop Time 12:00 Total Visit Minutes 45 Visit Number 29 Number of IMAGING CLERK Visits 0 Evaluation Information Evaluation Date 03/13/19 PT-OP-B Current Condition Start: 03/13/19 11:58 Freq: Status: Active Protocol: Document 03/13/19 11:15 DCW (Rec: 03/13/19 12:27 DCW [id number]) Current Condition History of Current Condition Onset Date Multi-year history Current Complaints Fatigue, weakness, imbalance, decreased gait speed History of Current Condition Pt is a 78 year old female well known to this clinic presenting with what she calls a loss of ground following her last round of physical therapy earlier in the year. Pt has a history of 5 separate CVAs, and feels her largest problem is her very slow gait speed, as well as weakness. Her slow gait speed is a long- standing issue which has previously been addressed at physical therapy, and she has shown some improvement, but typically does not perform a lot of HEP following discharge , and typically then regresses . Pt does note she has been working with a epic trainer in the local pool, and has begun attending gentle yoga classes, as well as a dancing class for people with disabilities. Prior Treatments and Tests Multiple rounds of physical therapy Treatment Goals Patient/Caregiver Goals Improve strengh and gait speed Prior Functional Status Baseline Function- ADL's Needs Assist Baseline Function- Mobility Needs Assist Baseline Function- Gait Very slow gait with bilateral walking sticks PT-OP-C Subjective Start: 03/13/19 11:58 Freq: Status: Active Protocol: Document 09/06/19 11:15 DCW (Rec: 09/06/19 11:57 DCW [id number]) OP-PT Subjective Patient Comments Patient Comments I'm very tired, but I'll do my best. PT-OP-D Balance Start: 03/13/19 11:58 Freq: Status: Active Protocol: Document 08/27/19 09:45 DCW (Rec: 08/27/19 10:22 DCW [id number]) OP-PT Balance Assessment Sitting Balance Static Sitting Balance Ability Good Dynamic Sitting Balance Ability Good Standing Balance Static Standing Balance Ability Fair Dynamic Standing Balance Ability Good Tinetti Balance Assessment Sitting Balance Sitting Balance Steady, safe Arising from Chair Ability to Arise Able, uses arms to help Attempts to Arise Arises on 1st attempt Standing Balance Immediate Standing Balance Steady w/o support Standing Balance Narrow stance w/o support Nudged Response Steady Standing with Eyes Closed Steady Turning Step Pattern Turning 360 Degrees Discontinuous steps Stability Turning 360 Degrees Steady Sitting Down Sitting Down Uses arms or unsteady Gait and Step Initiation of Gait No hesitancy Right Foot Step Length Does pass stance foot Right Foot Step Height Completely clears floor Left Foot Step Length Does pass stance foot Left Foot Step Height Completely clears floor Step Description Step Symmetry Step length appears equal Step Continuity Steps appear continuous Gait Description Path Description Straight Trunk Description No sway but posturing Walking Stance Heels together Scoring and Interpretation Tinetti Composite Score (points) 24 Interpretation of Scores At risk for falls (19-24) Tinetti Impairment Rating from Composite 1 to <20% Impaired (Score 23- Score 27) Vann Fall Scale Copyright Permission PT-OP-E Functional Tests Start: 03/13/19 11:58 Freq: Status: Active Protocol: Document 08/27/19 09:45 DCW (Rec: 08/27/19 10:21 DCW [id number]) Functional Tests 2 Minute Walk Test Distance 166' Device Used Bilateral walking sticks Comments 1.38 Timed Up and Go (TUG) Score 20.83 Comments 3-trial average (21.58, 20.39, 19.98) TUG Impairment Rating 100% Impaired (Score 20) Tinetti Balance and Gait Assessment Balance Score 13 Gait Score 11 Composite Score 24 Balance Score Impairment Rating 1 to <20% Impaired (Score 13- 15) Gait Score Impairment Rating 1 to <20% Impaired (Score 10- 11) Composite Score Impairment Rating 1 to <20% Impaired (Score 23- 27) PT-OP-M Strength Start: 03/13/19 11:58 Freq: Status: Active Protocol: Document 08/27/19 09:45 DCW (Rec: 08/27/19 10:21 DCW [id number]) Hip Strength Hip Manual Muscle Testing Right Flexion (L2) 4 Good Abduction 4+ Good+ Adduction 4 Good Left Flexion (L2) 4+ Good+ Abduction 4+ Good+ Adduction 4+ Good+ Knee Strength Knee Manual Muscle Testing Right Flexion (S2) 5 Normal Extension (L3) 4+ Good+ Left Flexion (S2) 5 Normal Extension (L3) 5 Normal Ankle/Foot Strength Ankle and Foot Manual Muscle Testing Right Dorsiflexion (L4) 4+ Good+ Plantarflexion (S1) 4 Good Left Dorsiflexion (L4) 4+ Good+ Plantarflexion (S1) 4 Good PT-OP-Q Treatments Start: 03/13/19 11:58 Freq: Status: Active Protocol: Document 09/06/19 11:15 DCW (Rec: 09/06/19 11:57 DCW [id number]) Therapeutic Exercises Standing Exercises Toe-taps Standing Exercise Name Toe-taps Side bilateral Resistance 2# Equipment Used 6 step Gait Training Gait Activity Stride length Description Step count over specific distance Device Used Walking sticks Distance/Duration 20' course Comments # of steps: 12->13->11->12->12 ->12 Gait speed training Description 170' x2 Device Used Walking sticks Treatment Focus Increased gait speed, increased stride length Comments 170' time: 195.49 (0.87 ft/ sec); 125.26 (1.36 ft/sec). Second attempt used metronome at 80 bpm. PT-OP-T Assessment and Plan Start: 03/13/19 11:58 Freq: Status: Active Protocol: Document 09/06/19 11:15 DCW (Rec: 09/06/19 11:57 DCW [id number]) Physical Therapy Assessment Impairments Impairments Activity Tolerance,Balance, Functional Activities, Functional Mobility,Gait, Posture,Strength,Transfers Goals Five Impairment TUG score of 20.15 seconds Half-Way Goal (LTG) Pt to score at least 15 seconds on the TUG LTG Duration 10/08/19 - Minimal change Four Impairment Tinetti Short Term Goal (STG) Pt to score at least 20/28 on Tinetti Balance Assessment STG Duration Met Cuffer Goal (LTG) Pt to score at least 24/28 on Tinetti Balance Assessment LTG Duration Met Three Impairment LE MMT Short Term Goal (STG) Pt LE MMT grossly to 4/5 in order to improve balance and activity tolerance STG Duration Met Half-Way Goal (LTG) Pt LE MMT grossly to 4+/5 in order to improve balance and activity tolerance LTG Duration 10/08/19 Two Impairment Gait speed of 1.38 ft/sec during two minute walk test Short Term Goal (STG) Pt gait speed to 1.2 ft/sec (2 MWT distance of 144'). STG Duration Met Cuffer Goal (LTG) Pt gait speed to 1.6 ft/sec (2 MWT distance of 192'). A gait speed of less than 1.97 indicates a greater likelihood of further functional decline in older adults LTG Duration 10/08/19 One Impairment Pt does not have an appropriate home exercise program Short Term Goal (STG) Pt to be independent and compliant with an appropriate HEP STG Duration Met Assessment Summary Assessment Pt improved her time walking 170' by 1'10 with the addition of an 80 bpm metronome, going from one of her worst laps ever, at 3'15, to a much improved 2'05. Physical Therapy Plan Frequency and Duration Frequency of Treatment 2x/Week Duration of Treatment 6 weeks Plan of Care Start Date 08/27/19 Plan of Care End Date 10/08/19 Therapeutic Interventions Therapeutic Interventions Aquatic Therapy,Balance Training,Home Exercise Program ,Neuromuscular Re-education, Patient/Caregiver Education, Self-Care/Home Management,Soft Tissue Mobilization, Therapeutic Activities, Therapeutic Exercises Next Visit Focus/Plan Next Note Type Treatment Note Next Visit Plan Strengthening, gait training, gait speed, balance training
--- NOTE | 2019-09-10 11:58 | PT.OTN ---
Current Diagnoses Cerebral infarction, unspecified (09/10/19) Muscle weakness (generalized) (09/10/19) Other abnormalities of gait and mobility (09/10/19) Physical Therapy Treatment Note PT-OP-A Visit Information Start: 03/13/19 11:58 Freq: Status: Active Protocol: Document 09/10/19 11:15 DCW (Rec: 09/10/19 11:58 DCW [id number]) Out-Patient Physical Therapy Visit Information Visit Information Visit Type Treatment Note Visit Note 10/24 Visit Start Time 11:15 Visit Stop Time 12:00 Total Visit Minutes 45 Visit Number 30 Number of COSMETIC SURGEON Visits 0 Evaluation Information Evaluation Date 03/13/19 PT-OP-B Current Condition Start: 03/13/19 11:58 Freq: Status: Active Protocol: Document 03/13/19 11:15 DCW (Rec: 03/13/19 12:27 DCW [id number]) Current Condition History of Current Condition Onset Date Multi-year history Current Complaints Fatigue, weakness, imbalance, decreased gait speed History of Current Condition Pt is a 78 year old female well known to this clinic presenting with what she calls a loss of ground following her last round of physical therapy earlier in the year. Pt has a history of 5 separate CVAs, and feels her largest problem is her very slow gait speed, as well as weakness. Her slow gait speed is a long- standing issue which has previously been addressed at physical therapy, and she has shown some improvement, but typically does not perform a lot of HEP following discharge , and typically then regresses . 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 Prior Treatments and Tests Multiple rounds of physical therapy Treatment Goals Patient/Caregiver Goals Improve strengh and gait speed Prior Functional Status Baseline Function- ADL's Needs Assist Baseline Function- Mobility Needs Assist Baseline Function- Gait Very slow gait with bilateral walking sticks PT-OP-C Subjective Start: 03/13/19 11:58 Freq: Status: Active Protocol: Document 09/10/19 11:15 DCW (Rec: 09/10/19 11:58 DCW [id number]) OP-PT Subjective Patient Comments Patient Comments I don't feel very well today, I'm very sluggish. I haven't had any food yet today, either . PT-OP-D Balance Start: 03/13/19 11:58 Freq: Status: Active Protocol: Document 08/27/19 09:45 DCW (Rec: 08/27/19 10:22 DCW [id number]) OP-PT Balance Assessment Sitting Balance Static Sitting Balance Ability Good Dynamic Sitting Balance Ability Good Standing Balance Static Standing Balance Ability Fair Dynamic Standing Balance Ability Good Tinetti Balance Assessment Sitting Balance Sitting Balance Steady, safe Arising from Chair Ability to Arise Able, uses arms to help Attempts to Arise Arises on 1st attempt Standing Balance Immediate Standing Balance Steady w/o support Standing Balance Narrow stance w/o support Nudged Response Steady Standing with Eyes Closed Steady Turning Step Pattern Turning 360 Degrees Discontinuous steps Stability Turning 360 Degrees Steady Sitting Down Sitting Down Uses arms or unsteady Gait and Step Initiation of Gait No hesitancy Right Foot Step Length Does pass stance foot Right Foot Step Height Completely clears floor Left Foot Step Length Does pass stance foot Left Foot Step Height Completely clears floor Step Description Step Symmetry Step length appears equal Step Continuity Steps appear continuous Gait Description Path Description Straight Trunk Description No sway but posturing Walking Stance Heels together Scoring and Interpretation Tinetti Composite Score (points) 24 Interpretation of Scores At risk for falls (19-24) Tinetti Impairment Rating from Composite 1 to <20% Impaired (Score 23- Score 27) Vann Fall Scale Copyright Permission PT-OP-E Functional Tests Start: 03/13/19 11:58 Freq: Status: Active Protocol: Document 08/27/19 09:45 DCW (Rec: 08/27/19 10:21 DCW [id number]) Functional Tests 2 Minute Walk Test Distance 166' Device Used Bilateral walking sticks Comments 1.38 Timed Up and Go (TUG) Score 20.83 Comments 3-trial average (21.58, 20.39, 19.98) TUG Impairment Rating 100% Impaired (Score 20) Tinetti Balance and Gait Assessment Balance Score 13 Gait Score 11 Composite Score 24 Balance Score Impairment Rating 1 to <20% Impaired (Score 13- 15) Gait Score Impairment Rating 1 to <20% Impaired (Score 10- 11) Composite Score Impairment Rating 1 to <20% Impaired (Score 23- 27) PT-OP-M Strength Start: 03/13/19 11:58 Freq: Status: Active Protocol: Document 08/27/19 09:45 DCW (Rec: 08/27/19 10:21 DCW [id number]) Hip Strength Hip Manual Muscle Testing Right Flexion (L2) 4 Good Abduction 4+ Good+ Adduction 4 Good Left Flexion (L2) 4+ Good+ Abduction 4+ Good+ Adduction 4+ Good+ Knee Strength Knee Manual Muscle Testing Right Flexion (S2) 5 Normal Extension (L3) 4+ Good+ Left Flexion (S2) 5 Normal Extension (L3) 5 Normal Ankle/Foot Strength Ankle and Foot Manual Muscle Testing Right Dorsiflexion (L4) 4+ Good+ Plantarflexion (S1) 4 Good Left Dorsiflexion (L4) 4+ Good+ Plantarflexion (S1) 4 Good PT-OP-Q Treatments Start: 03/13/19 11:58 Freq: Status: Active Protocol: Document 09/10/19 11:15 DCW (Rec: 09/10/19 11:58 DCW [id number]) Cardio Equipment Recumbent Elliptical ([employer]) Duration (Minutes) 5 Resistance 4 Seat Position 8 Therapeutic Exercises Standing Exercises Heel raises Standing Exercise Name Heel raises @ rail Hamstring Curls Standing Exercise Name HS Curls Side bilateral Resistance 5# Hip Abduction Standing Exercise Name Abduction Side bilateral Resistance 5# Marching Standing Exercise Name Marching Side bilateral Resistance 5# Gait Training Gait Activity Stride length Description Step count over specific distance Device Used Walking sticks Distance/Duration 20' course Comments # of steps: 12->12->12->12->11 ->11 Gait speed training Description 170' x2 Device Used Walking sticks Treatment Focus Increased gait speed, increased stride length Comments 170' time: 138.47 (1.22 ft/ sec); 129.35 (1.31 ft/sec). Second attempt used metronome at 80 bpm. Neuro Re-Education Treatment Balance Activities Foam Stance Details Double leg stance on foam Surface Silva foam Comments EO/EC, Head turns PT-OP-T Assessment and Plan Start: 03/13/19 11:58 Freq: Status: Active Protocol: Document 09/10/19 11:15 DCW (Rec: 09/10/19 11:58 DCW [id number]) Physical Therapy Assessment Impairments Impairments Activity Tolerance,Balance, Functional Activities, Functional Mobility,Gait, Posture,Strength,Transfers Goals Five Impairment TUG score of 20.15 seconds Prison Goal (LTG) Pt to score at least 15 seconds on the TUG LTG Duration 10/08/19 - Minimal change Four Impairment Tinetti Short Term Goal (STG) Pt to score at least 20/28 on Tinetti Balance Assessment STG Duration Met Prison Goal (LTG) Pt to score at least 24/28 on Tinetti Balance Assessment LTG Duration Met Three Impairment LE MMT Short Term Goal (STG) Pt LE MMT grossly to 4/5 in order to improve balance and activity tolerance STG Duration Met Process Pumper Goal (LTG) Pt LE MMT grossly to 4+/5 in order to improve balance and activity tolerance LTG Duration 10/08/19 Two Impairment Gait speed of 1.38 ft/sec during two minute walk test Short Term Goal (STG) Pt gait speed to 1.2 ft/sec (2 MWT distance of 144'). STG Duration Met Process Pumper Goal (LTG) Pt gait speed to 1.6 ft/sec (2 MWT distance of 192'). A gait speed of less than 1.97 indicates a greater likelihood of further functional decline in older adults LTG Duration 10/08/19 One Impairment Pt does not have an appropriate home exercise program Short Term Goal (STG) Pt to be independent and compliant with an appropriate HEP STG Duration Met Assessment Summary Assessment Despite complaints of feeling sluggish, pt did a pretty average job today. Occasional complaints of fatigue, but was able to fully participate. Physical Therapy Plan Frequency and Duration Frequency of Treatment 2x/Week Duration of Treatment 6 weeks Plan of Care Start Date 08/27/19 Plan of Care End Date 10/08/19 Therapeutic Interventions Therapeutic Interventions Aquatic Therapy,Balance Training,Home Exercise Program ,Neuromuscular Re-education, Patient/Caregiver Education, Self-Care/Home Management,Soft Tissue Mobilization, Therapeutic Activities, Therapeutic Exercises Next Visit Focus/Plan Next Note Type Treatment Note Next Visit Plan Strengthening, gait training, gait speed, balance training
--- NOTE | 2019-09-17 11:12 | PT.OTN ---
Current Diagnoses Cerebral infarction, unspecified (09/17/19) Muscle weakness (generalized) (09/17/19) Other abnormalities of gait and mobility (09/17/19) Physical Therapy Treatment Note PT-OP-A Visit Information Start: 03/13/19 11:58 Freq: Status: Active Protocol: Document 09/17/19 10:30 DCW (Rec: 09/17/19 11:12 DCW [id number]) Out-Patient Physical Therapy Visit Information Visit Information Visit Type Treatment Note Visit Note 11/23 Visit Start Time 10:30 Visit Stop Time 11:15 Total Visit Minutes 45 Visit Number 31 Number of ASSISTANT NEWS DIRECTOR Visits 0 Evaluation Information Evaluation Date 03/13/19 PT-OP-B Current Condition Start: 03/13/19 11:58 Freq: Status: Active Protocol: Document 03/13/19 11:15 DCW (Rec: 03/13/19 12:27 DCW [id number]) Current Condition History of Current Condition Onset Date Multi-year history Current Complaints Fatigue, weakness, imbalance, decreased gait speed History of Current Condition Pt is a 78 year old female well known to this clinic presenting with what she calls a loss of ground following her last round of physical therapy earlier in the year. Pt has a history of 5 separate CVAs, and feels her largest problem is her very slow gait speed, as well as weakness. Her slow gait speed is a long- standing issue which has previously been addressed at physical therapy, and she has shown some improvement, but typically does not perform a lot of HEP following discharge , and typically then regresses . 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 Prior Treatments and Tests Multiple rounds of physical therapy Treatment Goals Patient/Caregiver Goals Improve strengh and gait speed Prior Functional Status Baseline Function- ADL's Needs Assist Baseline Function- Mobility Needs Assist Baseline Function- Gait Very slow gait with bilateral walking sticks PT-OP-C Subjective Start: 03/13/19 11:58 Freq: Status: Active Protocol: Document 09/17/19 10:30 DCW (Rec: 09/17/19 11:12 DCW [id number]) OP-PT Subjective Patient Comments Patient Comments I'm slow today. PT-OP-D Balance Start: 03/13/19 11:58 Freq: Status: Active Protocol: Document 08/27/19 09:45 DCW (Rec: 08/27/19 10:22 DCW [id number]) OP-PT Balance Assessment Sitting Balance Static Sitting Balance Ability Good Dynamic Sitting Balance Ability Good Standing Balance Static Standing Balance Ability Fair Dynamic Standing Balance Ability Good Tinetti Balance Assessment Sitting Balance Sitting Balance Steady, safe Arising from Chair Ability to Arise Able, uses arms to help Attempts to Arise Arises on 1st attempt Standing Balance Immediate Standing Balance Steady w/o support Standing Balance Narrow stance w/o support Nudged Response Steady Standing with Eyes Closed Steady Turning Step Pattern Turning 360 Degrees Discontinuous steps Stability Turning 360 Degrees Steady Sitting Down Sitting Down Uses arms or unsteady Gait and Step Initiation of Gait No hesitancy Right Foot Step Length Does pass stance foot Right Foot Step Height Completely clears floor Left Foot Step Length Does pass stance foot Left Foot Step Height Completely clears floor Step Description Step Symmetry Step length appears equal Step Continuity Steps appear continuous Gait Description Path Description Straight Trunk Description No sway but posturing Walking Stance Heels together Scoring and Interpretation Tinetti Composite Score (points) 24 Interpretation of Scores At risk for falls (19-24) Tinetti Impairment Rating from Composite 1 to <20% Impaired (Score 23- Score 27) Vann Fall Scale Copyright Permission PT-OP-E Functional Tests Start: 03/13/19 11:58 Freq: Status: Active Protocol: Document 08/27/19 09:45 DCW (Rec: 08/27/19 10:21 DCW [id number]) Functional Tests 2 Minute Walk Test Distance 166' Device Used Bilateral walking sticks Comments 1.38 Timed Up and Go (TUG) Score 20.83 Comments 3-trial average (21.58, 20.39, 19.98) TUG Impairment Rating 100% Impaired (Score 20) Tinetti Balance and Gait Assessment Balance Score 13 Gait Score 11 Composite Score 24 Balance Score Impairment Rating 1 to <20% Impaired (Score 13- 15) Gait Score Impairment Rating 1 to <20% Impaired (Score 10- 11) Composite Score Impairment Rating 1 to <20% Impaired (Score 23- 27) PT-OP-M Strength Start: 03/13/19 11:58 Freq: Status: Active Protocol: Document 08/27/19 09:45 DCW (Rec: 08/27/19 10:21 DCW [id number]) Hip Strength Hip Manual Muscle Testing Right Flexion (L2) 4 Good Abduction 4+ Good+ Adduction 4 Good Left Flexion (L2) 4+ Good+ Abduction 4+ Good+ Adduction 4+ Good+ Knee Strength Knee Manual Muscle Testing Right Flexion (S2) 5 Normal Extension (L3) 4+ Good+ Left Flexion (S2) 5 Normal Extension (L3) 5 Normal Ankle/Foot Strength Ankle and Foot Manual Muscle Testing Right Dorsiflexion (L4) 4+ Good+ Plantarflexion (S1) 4 Good Left Dorsiflexion (L4) 4+ Good+ Plantarflexion (S1) 4 Good PT-OP-Q Treatments Start: 03/13/19 11:58 Freq: Status: Active Protocol: Document 09/17/19 10:30 DCW (Rec: 09/17/19 11:12 DCW [id number]) Cardio Equipment Recumbent Elliptical ([employer]) Duration (Minutes) 5 Resistance 4 Seat Position 8 Therapeutic Exercises Standing Exercises Heel raises Standing Exercise Name Heel raises @ rail Hamstring Curls Standing Exercise Name HS Curls Side bilateral Resistance 5# Marching Standing Exercise Name Marching Side bilateral Resistance 5# Gait Training Gait Activity Stride length Description Step count over specific distance Device Used Walking sticks Distance/Duration 20' course Comments # of steps: 13->12->11->12->11 ->12 Gait speed training Description 170' x2 Device Used Walking sticks Treatment Focus Increased gait speed, increased stride length Comments 170' time: 173.84 (0.98 ft/ sec); 170.31 (1.00 ft/sec). Second attempt used metronome at 80 bpm. PT-OP-T Assessment and Plan Start: 03/13/19 11:58 Freq: Status: Active Protocol: Document 09/17/19 10:30 DCW (Rec: 09/17/19 11:12 DCW [id number]) Physical Therapy Assessment Impairments Impairments Activity Tolerance,Balance, Functional Activities, Functional Mobility,Gait, Posture,Strength,Transfers Goals Five Impairment TUG score of 20.15 seconds Inspector And Hand Packager Goal (LTG) Pt to score at least 15 seconds on the TUG LTG Duration 10/08/19 - Minimal change Four Impairment Tinetti Short Term Goal (STG) Pt to score at least 20/28 on Tinetti Balance Assessment STG Duration Met Inspector And Hand Packager Goal (LTG) Pt to score at least 24/28 on Tinetti Balance Assessment LTG Duration Met Three Impairment LE MMT Short Term Goal (STG) Pt LE MMT grossly to 4/5 in order to improve balance and activity tolerance STG Duration Met Usp Goal (LTG) Pt LE MMT grossly to 4+/5 in order to improve balance and activity tolerance LTG Duration 10/08/19 Two Impairment Gait speed of 1.38 ft/sec during two minute walk test Short Term Goal (STG) Pt gait speed to 1.2 ft/sec (2 MWT distance of 144'). STG Duration Met Usp Goal (LTG) Pt gait speed to 1.6 ft/sec (2 MWT distance of 192'). A gait speed of less than 1.97 indicates a greater likelihood of further functional decline in older adults LTG Duration 10/08/19 One Impairment Pt does not have an appropriate home exercise program Short Term Goal (STG) Pt to be independent and compliant with an appropriate HEP STG Duration Met Assessment Summary Assessment Pt experienced substantial difficulty getting moving today, poor gait speed and decreased step length, despite constant verbal cues. Physical Therapy Plan Frequency and Duration Frequency of Treatment 2x/Week Duration of Treatment 6 weeks Plan of Care Start Date 08/27/19 Plan of Care End Date 10/08/19 Therapeutic Interventions Therapeutic Interventions Aquatic Therapy,Balance Training,Home Exercise Program ,Neuromuscular Re-education, Patient/Caregiver Education, Self-Care/Home Management,Soft Tissue Mobilization, Therapeutic Activities, Therapeutic Exercises Next Visit Focus/Plan Next Note Type Treatment Note Next Visit Plan Strengthening, gait training, gait speed, balance training
--- NOTE | 2019-09-24 11:17 | PT.OTN ---
Current Diagnoses Cerebral infarction, unspecified (09/24/19) Muscle weakness (generalized) (09/24/19) Other abnormalities of gait and mobility (09/24/19) Physical Therapy Treatment Note PT-OP-A Visit Information Start: 03/13/19 11:58 Freq: Status: Active Protocol: Document 09/24/19 10:30 DCW (Rec: 09/24/19 11:16 DCW [id number]) Out-Patient Physical Therapy Visit Information Visit Information Visit Type Treatment Note Visit Note 12/24 Visit Start Time 10:30 Visit Stop Time 11:15 Total Visit Minutes 45 Visit Number 32 Number of VEGETABLE INSPECTOR Visits 0 Evaluation Information Evaluation Date 03/13/19 PT-OP-B Current Condition Start: 03/13/19 11:58 Freq: Status: Active Protocol: Document 03/13/19 11:15 DCW (Rec: 03/13/19 12:27 DCW [id number]) Current Condition History of Current Condition Onset Date Multi-year history Current Complaints Fatigue, weakness, imbalance, decreased gait speed History of Current Condition Pt is a 78 year old female well known to this clinic presenting with what she calls a loss of ground following her last round of physical therapy earlier in the year. Pt has a history of 5 separate CVAs, and feels her largest problem is her very slow gait speed, as well as weakness. Her slow gait speed is a long- standing issue which has previously been addressed at physical therapy, and she has shown some improvement, but typically does not perform a lot of HEP following discharge , and typically then regresses . Pt does note she has been working with a development trainer in the local pool, and has begun attending gentle yoga classes, as well as a dancing class for people with disabilities. Prior Treatments and Tests Multiple rounds of physical therapy Treatment Goals Patient/Caregiver Goals Improve strengh and gait speed Prior Functional Status Baseline Function- ADL's Needs Assist Baseline Function- Mobility Needs Assist Baseline Function- Gait Very slow gait with bilateral walking sticks PT-OP-C Subjective Start: 03/13/19 11:58 Freq: Status: Active Protocol: Document 09/24/19 10:30 DCW (Rec: 09/24/19 11:17 DCW [id number]) OP-PT Subjective Patient Comments Patient Comments Pt reports she is feeling very good today. PT-OP-D Balance Start: 03/13/19 11:58 Freq: Status: Active Protocol: Document 08/27/19 09:45 DCW (Rec: 08/27/19 10:22 DCW [id number]) OP-PT Balance Assessment Sitting Balance Static Sitting Balance Ability Good Dynamic Sitting Balance Ability Good Standing Balance Static Standing Balance Ability Fair Dynamic Standing Balance Ability Good Tinetti Balance Assessment Sitting Balance Sitting Balance Steady, safe Arising from Chair Ability to Arise Able, uses arms to help Attempts to Arise Arises on 1st attempt Standing Balance Immediate Standing Balance Steady w/o support Standing Balance Narrow stance w/o support Nudged Response Steady Standing with Eyes Closed Steady Turning Step Pattern Turning 360 Degrees Discontinuous steps Stability Turning 360 Degrees Steady Sitting Down Sitting Down Uses arms or unsteady Gait and Step Initiation of Gait No hesitancy Right Foot Step Length Does pass stance foot Right Foot Step Height Completely clears floor Left Foot Step Length Does pass stance foot Left Foot Step Height Completely clears floor Step Description Step Symmetry Step length appears equal Step Continuity Steps appear continuous Gait Description Path Description Straight Trunk Description No sway but posturing Walking Stance Heels together Scoring and Interpretation Tinetti Composite Score (points) 24 Interpretation of Scores At risk for falls (19-24) Tinetti Impairment Rating from Composite 1 to <20% Impaired (Score 23- Score 27) Vann Fall Scale Copyright Permission PT-OP-E Functional Tests Start: 03/13/19 11:58 Freq: Status: Active Protocol: Document 08/27/19 09:45 DCW (Rec: 08/27/19 10:21 DCW [id number]) Functional Tests 2 Minute Walk Test Distance 166' Device Used Bilateral walking sticks Comments 1.38 Timed Up and Go (TUG) Score 20.83 Comments 3-trial average (21.58, 20.39, 19.98) TUG Impairment Rating 100% Impaired (Score 20) Tinetti Balance and Gait Assessment Balance Score 13 Gait Score 11 Composite Score 24 Balance Score Impairment Rating 1 to <20% Impaired (Score 13- 15) Gait Score Impairment Rating 1 to <20% Impaired (Score 10- 11) Composite Score Impairment Rating 1 to <20% Impaired (Score 23- 27) PT-OP-M Strength Start: 03/13/19 11:58 Freq: Status: Active Protocol: Document 08/27/19 09:45 DCW (Rec: 08/27/19 10:21 DCW [id number]) Hip Strength Hip Manual Muscle Testing Right Flexion (L2) 4 Good Abduction 4+ Good+ Adduction 4 Good Left Flexion (L2) 4+ Good+ Abduction 4+ Good+ Adduction 4+ Good+ Knee Strength Knee Manual Muscle Testing Right Flexion (S2) 5 Normal Extension (L3) 4+ Good+ Left Flexion (S2) 5 Normal Extension (L3) 5 Normal Ankle/Foot Strength Ankle and Foot Manual Muscle Testing Right Dorsiflexion (L4) 4+ Good+ Plantarflexion (S1) 4 Good Left Dorsiflexion (L4) 4+ Good+ Plantarflexion (S1) 4 Good PT-OP-Q Treatments Start: 03/13/19 11:58 Freq: Status: Active Protocol: Document 09/24/19 10:30 DCW (Rec: 09/24/19 11:16 DCW [id number]) Cardio Equipment Recumbent Elliptical (Biodex) Duration (Minutes) 5 Resistance 4 Seat Position 8 Therapeutic Exercises Other Exercises Retro Ambulation Other Exercise Name Retro Ambulation Equipment Used // bars Side-stepping Other Exercise Name Side-stepping at rail Resistance none Equipment Used // bars Gait Training Gait Activity Stride length Description Step count over specific distance Device Used Walking sticks Distance/Duration 20' course Comments # of steps: 12->11->11->11->11 ->11 Gait speed training Description 170' x2 Device Used Walking sticks Treatment Focus Increased gait speed, increased stride length Comments 170' time: 126.8 (1.34 ft/sec ); 114.91 (1.48 ft/sec). Second attempt used metronome at 80 bpm. Neuro Re-Education Treatment Balance Activities NBOS Details NBOS Surface Firm Comments EO/EC Foam Stance Details NBOS Surface Silva foam Comments UE support PT-OP-T Assessment and Plan Start: 03/13/19 11:58 Freq: Status: Active Protocol: Document 09/24/19 10:30 DCW (Rec: 09/24/19 11:16 DCW [id number]) Physical Therapy Assessment Impairments Impairments Activity Tolerance,Balance, Functional Activities, Functional Mobility,Gait, Posture,Strength,Transfers Goals Five Impairment TUG score of 20.15 seconds Mcc Goal (LTG) Pt to score at least 15 seconds on the TUG LTG Duration 10/08/19 - Minimal change Four Impairment Tinetti Short Term Goal (STG) Pt to score at least 20/28 on Tinetti Balance Assessment STG Duration Met Ball Thread Machine Tender Goal (LTG) Pt to score at least 24/28 on Tinetti Balance Assessment LTG Duration Met Three Impairment LE MMT Short Term Goal (STG) Pt LE MMT grossly to 4/5 in order to improve balance and activity tolerance STG Duration Met Mcc Goal (LTG) Pt LE MMT grossly to 4+/5 in order to improve balance and activity tolerance LTG Duration 10/08/19 Two Impairment Gait speed of 1.38 ft/sec during two minute walk test Short Term Goal (STG) Pt gait speed to 1.2 ft/sec (2 MWT distance of 144'). STG Duration Met Ball Thread Machine Tender Goal (LTG) Pt gait speed to 1.6 ft/sec (2 MWT distance of 192'). A gait speed of less than 1.97 indicates a greater likelihood of further functional decline in older adults LTG Duration 10/08/19 One Impairment Pt does not have an appropriate home exercise program Short Term Goal (STG) Pt to be independent and compliant with an appropriate HEP STG Duration Met Assessment Summary Assessment After struggling last week, pt had her best walking day in months, with improved step length and keeping up her art. Pt admitted she felt really good today. Physical Therapy Plan Frequency and Duration Frequency of Treatment 2x/Week Duration of Treatment 6 weeks Plan of Care Start Date 08/27/19 Plan of Care End Date 10/08/19 Therapeutic Interventions Therapeutic Interventions Aquatic Therapy,Balance Training,Home Exercise Program ,Neuromuscular Re-education, Patient/Caregiver Education, Self-Care/Home Management,Soft Tissue Mobilization, Therapeutic Activities, Therapeutic Exercises Next Visit Focus/Plan Next Note Type Progress Note Next Visit Plan Strengthening, gait training, gait speed, balance training
--- NOTE | 2020-01-23 17:37 | PT.OTN ---
Current Diagnoses Cerebral infarction, unspecified (01/23/20) Muscle weakness (generalized) (01/23/20) Other abnormalities of gait and mobility (01/23/20) Physical Therapy Treatment Note PT-OP-A Visit Information Start: 03/13/19 11:58 Freq: Status: Active Protocol: Document 01/23/20 16:45 DCW (Rec: 01/23/20 17:35 DCW [id number]) Out-Patient Physical Therapy Visit Information Visit Information Visit Type Progress Note Visit Note 07/26 Visit Start Time 16:45 Visit Stop Time 17:30 Total Visit Minutes 45 Visit Number 33 Number of CITY BUS DRIVER Visits 0 Evaluation Information Evaluation Date 03/13/19 PT-OP-B Current Condition Start: 03/13/19 11:58 Freq: Status: Active Protocol: Document 03/13/19 11:15 DCW (Rec: 03/13/19 12:27 DCW [id number]) Current Condition History of Current Condition Onset Date Multi-year history Current Complaints Fatigue, weakness, imbalance, decreased gait speed History of Current Condition Pt is a 78 year old female well known to this clinic presenting with what she calls a loss of ground following her last round of physical therapy earlier in the year. Pt has a history of 5 separate CVAs, and feels her largest problem is her very slow gait speed, as well as weakness. Her slow gait speed is a long- standing issue which has previously been addressed at physical therapy, and she has shown some improvement, but typically does not perform a lot of HEP following discharge , and typically then regresses . 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 Prior Treatments and Tests Multiple rounds of physical therapy Treatment Goals Patient/Caregiver Goals Improve strengh and gait speed Prior Functional Status Baseline Function- ADL's Needs Assist Baseline Function- Mobility Needs Assist Baseline Function- Gait Very slow gait with bilateral walking sticks PT-OP-C Subjective Start: 03/13/19 11:58 Freq: Status: Active Protocol: Document 01/23/20 16:45 DCW (Rec: 01/23/20 17:35 DCW [id number]) OP-PT Subjective Patient Comments Patient Comments I've lost a lot over these past four months. PT-OP-D Balance Start: 03/13/19 11:58 Freq: Status: Active Protocol: Document 01/23/20 16:45 DCW (Rec: 01/23/20 17:16 DCW [id number]) OP-PT Balance Assessment Sitting Balance Static Sitting Balance Ability Good Dynamic Sitting Balance Ability Good Standing Balance Static Standing Balance Ability Fair Dynamic Standing Balance Ability Fair Tinetti Balance Assessment Sitting Balance Sitting Balance Steady, safe Arising from Chair Ability to Arise Able, uses arms to help Attempts to Arise Arises on 1st attempt Standing Balance Immediate Standing Balance Steady with support Standing Balance Narrow stance w/o support Nudged Response Begins to fall Standing with Eyes Closed Steady Turning Step Pattern Turning 360 Degrees Discontinuous steps Stability Turning 360 Degrees Steady Sitting Down Sitting Down Uses arms or unsteady Gait and Step Initiation of Gait No hesitancy Right Foot Step Length Does pass stance foot Right Foot Step Height Completely clears floor Left Foot Step Length Does not pass stance foot Left Foot Step Height Does not clear floor Step Description Step Symmetry Step length not equal Step Continuity Steps appear continuous Gait Description Path Description Straight Trunk Description No sway but posturing Walking Stance Heels apart Scoring and Interpretation Tinetti Composite Score (points) 17 Interpretation of Scores High risk for falls(< 19) Tinetti Impairment Rating from Composite 20 to <40% Impaired (Score 17- Score 22) Vann Fall Scale Copyright Permission PT-OP-E Functional Tests Start: 03/13/19 11:58 Freq: Status: Active Protocol: Document 01/23/20 16:45 DCW (Rec: 01/23/20 17:16 DCW [id number]) Functional Tests 2 Minute Walk Test Distance 102' Device Used Bilateral walking sticks Comments .85 ft/sec Timed Up and Go (TUG) Score 31.64 Comments 3-trial average (32.24, 30.43, 32.24) TUG Impairment Rating 100% Impaired (Score 20) Tinetti Balance and Gait Assessment Balance Score 10 Gait Score 7 Composite Score 17 Balance Score Impairment Rating 20 to <40% Impaired (Score 10- 12) Gait Score Impairment Rating 40 to <60% Impaired (Score 5-7 ) Composite Score Impairment Rating 20 to <40% Impaired (Score 17- 22) PT-OP-M Strength Start: 03/13/19 11:58 Freq: Status: Active Protocol: Document 01/23/20 16:45 DCW (Rec: 01/23/20 17:16 DCW [id number]) Hip Strength Hip Manual Muscle Testing Right Flexion (L2) 4 Good Abduction 4+ Good+ Adduction 4 Good Left Flexion (L2) 4+ Good+ Abduction 4+ Good+ Adduction 4+ Good+ Knee Strength Knee Manual Muscle Testing Right Flexion (S2) 4+ Good+ Extension (L3) 4+ Good+ Left Flexion (S2) 4 Good Extension (L3) 4+ Good+ Ankle/Foot Strength Ankle and Foot Manual Muscle Testing Right Dorsiflexion (L4) 4+ Good+ Plantarflexion (S1) 4 Good Left Dorsiflexion (L4) 4+ Good+ Plantarflexion (S1) 4 Good PT-OP-Q Treatments Start: 03/13/19 11:58 Freq: Status: Active Protocol: Document 01/23/20 16:45 DCW (Rec: 01/23/20 17:35 DCW [id number]) Neuro Re-Education Treatment Other Activities Testing Details Tinetti, TUG, MMT, 2 MWT PT-OP-T Assessment and Plan Start: 03/13/19 11:58 Freq: Status: Active Protocol: Document 01/23/20 16:45 DCW (Rec: 01/23/20 17:35 DCW [id number]) Physical Therapy Assessment Impairments Impairments Activity Tolerance,Balance, Functional Activities, Functional Mobility,Gait, Posture,Strength,Transfers Goals Five Impairment TUG score of 31.64 seconds Vice President For Philanthropy Goal (LTG) Pt to score at least 20 seconds on the TUG LTG Duration 03/25/20 Four Impairment Tinetti Short Term Goal (STG) Pt to score at least 20/28 on Tinetti Balance Assessment STG Duration 02/23/20 Vice President For Philanthropy Goal (LTG) Pt to score at least 24/28 on Tinetti Balance Assessment LTG Duration 03/25/20 Three Impairment LE MMT Short Term Goal (STG) Pt LE MMT grossly to 4/5 in order to improve balance and activity tolerance STG Duration Met Vice President For Philanthropy Goal (LTG) Pt LE MMT grossly to 4+/5 in order to improve balance and activity tolerance LTG Duration 03/25/20 Two Impairment Gait speed of 0.85 ft/sec during two minute walk test Short Term Goal (STG) Pt gait speed to 1.2 ft/sec (2 MWT distance of 144'). STG Duration 02/23/20 Retirement Goal (LTG) Pt gait speed to 1.6 ft/sec (2 MWT distance of 192'). A gait speed of less than 1.97 indicates a greater likelihood of further functional decline in older adults LTG Duration 03/25/20 One Impairment Pt does not have an appropriate home exercise program Short Term Goal (STG) Pt to be independent and compliant with an appropriate HEP STG Duration 02/23/20 Assessment Summary Assessment Pt declined in nearly all areas during a nearly four month lay-off from therapy secondary to Covid-19 shutdown . Pt TUG average fell from 20. 83 seconds to 31.64 seconds, her 2 MWT distance decreased from 166' to 102', and Tinetti score declined from to 17. Pt should benefit from skilled therapy focused on improving activity tolerance, LE strength, gait quality, and balance training. Physical Therapy Plan Frequency and Duration Frequency of Treatment 2x/Week Duration of Treatment 10 weeks Plan of Care Start Date 01/23/20 Plan of Care End Date 04/02/20 Therapeutic Interventions Therapeutic Interventions Aquatic Therapy,Balance Training,Home Exercise Program ,Neuromuscular Re-education, Patient/Caregiver Education, Self-Care/Home Management,Soft Tissue Mobilization, Therapeutic Activities, Therapeutic Exercises Next Visit Focus/Plan Next Note Type Treatment Note Next Visit Plan Strengthening, gait training, gait speed, balance training
--- NOTE | 2020-01-23 17:37 | PT.OPPOC ---
Physical, Occupational & Speech Therapy At [facility] Current Diagnoses Cerebral infarction, unspecified (01/23/20) Muscle weakness (generalized) (01/23/20) Other abnormalities of gait and mobility (01/23/20) Visit Care Team Role Provider Type Conchita Felipe PA-C Attending Provider Advanced Hogshead Mat Inspector Primary Care Provider Specialty: Internal Medicine Address: [address] [place] [address], [facility] Email: [email or web address] Plan Of Care PT-OP-T Assessment and Plan Start: 03/13/19 11:58 Freq: Status: Active Protocol: Document 01/23/20 16:45 DCW (Rec: 01/23/20 17:35 DCW [id number]) Physical Therapy Assessment Impairments Impairments Activity Tolerance,Balance, Functional Activities, Functional Mobility,Gait, Posture,Strength,Transfers Goals Five Impairment TUG score of 31.64 seconds Care Home Goal (LTG) Pt to score at least 20 seconds on the TUG LTG Duration 03/25/20 Four Impairment Tinetti Short Term Goal (STG) Pt to score at least 20/28 on Tinetti Balance Assessment STG Duration 02/23/20 Care Home Goal (LTG) Pt to score at least 24/28 on Tinetti Balance Assessment LTG Duration 03/25/20 Three Impairment LE MMT Short Term Goal (STG) Pt LE MMT grossly to 4/5 in order to improve balance and activity tolerance STG Duration Met It Engineer Goal (LTG) Pt LE MMT grossly to 4+/5 in order to improve balance and activity tolerance LTG Duration 03/25/20 Two Impairment Gait speed of 0.85 ft/sec during two minute walk test Short Term Goal (STG) Pt gait speed to 1.2 ft/sec (2 MWT distance of 144'). STG Duration 02/23/20 It Engineer Goal (LTG) Pt gait speed to 1.6 ft/sec (2 MWT distance of 192'). A gait speed of less than 1.97 indicates a greater likelihood of further functional decline in older adults LTG Duration 03/25/20 One Impairment Pt does not have an appropriate home exercise program Short Term Goal (STG) Pt to be independent and compliant with an appropriate HEP STG Duration 02/23/20 Assessment Summary Assessment Pt declined in nearly all areas during a nearly four month lay-off from therapy secondary to Covid-19 shutdown . Pt TUG average fell from 20. 83 seconds to 31.64 seconds, her 2 MWT distance decreased from 166' to 102', and Tinetti score declined from 2428 to 17. Pt should benefit from skilled therapy focused on improving activity tolerance, LE strength, gait quality, and balance training. Physical Therapy Plan Frequency and Duration Frequency of Treatment 2x/Week Duration of Treatment 10 weeks Plan of Care Start Date 01/23/20 Plan of Care End Date 04/02/20 Therapeutic Interventions Therapeutic Interventions Aquatic Therapy,Balance Training,Home Exercise Program ,Neuromuscular Re-education, Patient/Caregiver Education, Self-Care/Home Management,Soft Tissue Mobilization, Therapeutic Activities, Therapeutic Exercises Next Visit Focus/Plan Next Note Type Treatment Note Next Visit Plan Strengthening, gait training, gait speed, balance training Plan of Care Dates Plan of Care Start Date 01/23/20 Plan of Care End Date 04/02/20 Electronically Signed by: Marv Holcomb, PT 01/23/20 [id number] Please Sign and Return: I have reviewed this Plan of Care and certify that the skilled therapy services above are required to meet the patient?s needs. Physician Signature Date Printed Name and Credentials Clinical Instructor Signature Printed Name and Credentials
--- NOTE | 2020-01-29 09:04 | PT.OTN ---
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 Pt has a history of 5 separate CVAs, and feels her largest problem is her very slow gait speed, as well as weakness. Her slow gait speed is a long- standing issue which has previously been addressed at physical therapy, and she has shown some improvement, but typically does not perform a lot of HEP following discharge , and typically then regresses . 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 Prior Treatments and Tests Multiple rounds of physical therapy Treatment Goals Patient/Caregiver Goals Improve strengh and gait speed Prior Functional Status Baseline Function- ADL's Needs Assist Baseline Function- Mobility Needs Assist Baseline Function- Gait Very slow gait with bilateral walking sticks PT-OP-C Subjective Start: 03/13/19 11:58 Freq: Status: Active Protocol: Document 01/29/20 08:20 [facility] (Rec: 01/29/20 09:04 [facility] [id number]) OP-PT Subjective Patient Comments Patient Comments Pt reports she is tired this AM. She normally wakes up later int he AM PT-OP-D Balance Start: 03/13/19 11:58 Freq: Status: Active Protocol: Document 01/23/20 16:45 DCW (Rec: 01/23/20 17:16 DCW [id number]) OP-PT Balance Assessment Sitting Balance Static Sitting Balance Ability Good Dynamic Sitting Balance Ability Good Standing Balance Static Standing Balance Ability Fair Dynamic Standing Balance Ability Fair Tinetti Balance Assessment Sitting Balance Sitting Balance Steady, safe Arising from Chair Ability to Arise Able, uses arms to help Attempts to Arise Arises on 1st attempt Standing Balance Immediate Standing Balance Steady with support Standing Balance Narrow stance w/o support Nudged Response Begins to fall Standing with Eyes Closed Steady Turning Step Pattern Turning 360 Degrees Discontinuous steps Stability Turning 360 Degrees Steady Sitting Down Sitting Down Uses arms or unsteady Gait and Step Initiation of Gait No hesitancy Right Foot Step Length Does pass stance foot Right Foot Step Height Completely clears floor Left Foot Step Length Does not pass stance foot Left Foot Step Height Does not clear floor Step Description Step Symmetry Step length not equal Step Continuity Steps appear continuous Gait Description Path Description Straight Trunk Description No sway but posturing Walking Stance Heels apart Scoring and Interpretation Tinetti Composite Score (points) 17 Interpretation of Scores High risk for falls(< 19) Tinetti Impairment Rating from Composite 20 to <40% Impaired (Score 17- Score 22) Vann Fall Scale Copyright Permission PT-OP-E Functional Tests Start: 03/13/19 11:58 Freq: Status: Active Protocol: Document 01/23/20 16:45 DCW (Rec: 01/23/20 17:16 DCW [id number]) Functional Tests 2 Minute Walk Test Distance 102' Device Used Bilateral walking sticks Comments .85 ft/sec Timed Up and Go (TUG) Score 31.64 Comments 3-trial average (32.24, 30.43, 32.24) TUG Impairment Rating 100% Impaired (Score 20) Tinetti Balance and Gait Assessment Balance Score 10 Gait Score 7 Composite Score 17 Balance Score Impairment Rating 20 to <40% Impaired (Score 10- 12) Gait Score Impairment Rating 40 to <60% Impaired (Score 5-7 ) Composite Score Impairment Rating 20 to <40% Impaired (Score 17- 22) PT-OP-M Strength Start: 03/13/19 11:58 Freq: Status: Active Protocol: Document 01/23/20 16:45 DCW (Rec: 01/23/20 17:16 DCW [id number]) Hip Strength Hip Manual Muscle Testing Right Flexion (L2) 4 Good Abduction 4+ Good+ Adduction 4 Good Left Flexion (L2) 4+ Good+ Abduction 4+ Good+ Adduction 4+ Good+ Knee Strength Knee Manual Muscle Testing Right Flexion (S2) 4+ Good+ Extension (L3) 4+ Good+ Left Flexion (S2) 4 Good Extension (L3) 4+ Good+ Ankle/Foot Strength Ankle and Foot Manual Muscle Testing Right Dorsiflexion (L4) 4+ Good+ Plantarflexion (S1) 4 Good Left Dorsiflexion (L4) 4+ Good+ Plantarflexion (S1) 4 Good PT-OP-Q Treatments Start: 03/13/19 11:58 Freq: Status: Active Protocol: Document 01/29/20 08:20 [facility] (Rec: 01/29/20 09:04 [facility] [id number]) Cardio Equipment Recumbent Stepper (Sci-Fit) Duration (Minutes) 6 Resistance 3 Seat Position 8 Therapeutic Exercises Standing Exercises Heel raises Standing Exercise Name Heel raises @ rail Reps/Minutes 20 Marching Standing Exercise Name Marching fwd Side bilateral Equipment Used //bars Reps/Minutes 10ftx2 Toe-taps Standing Exercise Name Toe-taps Side bilateral Equipment Used 6 step Reps/Minutes 10 Other Exercises Retro Ambulation Other Exercise Name Retro Ambulation Equipment Used // bars Reps/Minutes 2x10ft Side-stepping Other Exercise Name Side-stepping at rail Side bilateral Resistance none Equipment Used // bars Reps/Minutes 10 sit<->stand Other Exercise Name StS training with UE assist on chair Equipment Used standard height chair Reps/Minutes 2x5 reps Comments cues for increased forward flexion Gait Training Gait Activity Gait speed training Description 170' x2 Device Used Walking sticks Treatment Focus Increased gait speed, increased stride length Comments 170' time: 1931st time 170 ,2nd time used metronome at 80 bpm. PT-OP-T Assessment and Plan Start: 03/13/19 11:58 Freq: Status: Active Protocol: Document 01/29/20 08:20 [facility] (Rec: 01/29/20 09:04 [facility] [id number]) Physical Therapy Assessment Goals Five Impairment TUG score of 31.64 seconds Chcf Goal (LTG) Pt to score at least 20 seconds on the TUG LTG Duration 03/25/20 Four Impairment Tinetti Short Term Goal (STG) Pt to score at least 20/28 on Tinetti Balance Assessment STG Duration 02/23/20 Debeaker Goal (LTG) Pt to score at least 24/28 on Tinetti Balance Assessment LTG Duration 03/25/20 Three Impairment LE MMT Short Term Goal (STG) Pt LE MMT grossly to 4/5 in order to improve balance and activity tolerance STG Duration Met Debeaker Goal (LTG) Pt LE MMT grossly to 4+/5 in order to improve balance and activity tolerance LTG Duration 03/25/20 Two Impairment Gait speed of 0.85 ft/sec during two minute walk test Short Term Goal (STG) Pt gait speed to 1.2 ft/sec (2 MWT distance of 144'). STG Duration 02/23/20 Chcf Goal (LTG) Pt gait speed to 1.6 ft/sec (2 MWT distance of 192'). A gait speed of less than 1.97 indicates a greater likelihood of further functional decline in older adults LTG Duration 03/25/20 One Impairment Pt does not have an appropriate home exercise program Short Term Goal (STG) Pt to be independent and compliant with an appropriate HEP STG Duration 02/23/20 Assessment Summary Assessment Pt struggled ot keep up with metronome especially 2nd half of the lap and required cueing to inc pace to metronome again. She is fatigued by strengthening exercises and requires rail for all standing exercises. Physical Therapy Plan Frequency and Duration Frequency of Treatment 2x/Week Duration of Treatment 10 weeks Plan of Care Start Date 01/23/20 Plan of Care End Date 04/02/20 Next Visit Focus/Plan Next Note Type Treatment Note Next Visit Plan Strengthening, gait training, gait speed, balance training
--- NOTE | 2020-02-03 10:29 | PT.OTN ---
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 Pt has a history of 5 separate CVAs, and feels her largest problem is her very slow gait speed, as well as weakness. Her slow gait speed is a long- standing issue which has previously been addressed at physical therapy, and she has shown some improvement, but typically does not perform a lot of HEP following discharge , and typically then regresses . 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 Prior Treatments and Tests Multiple rounds of physical therapy Treatment Goals Patient/Caregiver Goals Improve strengh and gait speed Prior Functional Status Baseline Function- ADL's Needs Assist Baseline Function- Mobility Needs Assist Baseline Function- Gait Very slow gait with bilateral walking sticks PT-OP-C Subjective Start: 03/13/19 11:58 Freq: Status: Active Protocol: Document 02/03/20 09:45 DCW (Rec: 02/03/20 10:29 DCW [id number]) OP-PT Subjective Patient Comments Patient Comments I just woke up, so I'm pretty slow right now. PT-OP-D Balance Start: 03/13/19 11:58 Freq: Status: Active Protocol: Document 01/23/20 16:45 DCW (Rec: 01/23/20 17:16 DCW [id number]) OP-PT Balance Assessment Sitting Balance Static Sitting Balance Ability Good Dynamic Sitting Balance Ability Good Standing Balance Static Standing Balance Ability Fair Dynamic Standing Balance Ability Fair Tinetti Balance Assessment Sitting Balance Sitting Balance Steady, safe Arising from Chair Ability to Arise Able, uses arms to help Attempts to Arise Arises on 1st attempt Standing Balance Immediate Standing Balance Steady with support Standing Balance Narrow stance w/o support Nudged Response Begins to fall Standing with Eyes Closed Steady Turning Step Pattern Turning 360 Degrees Discontinuous steps Stability Turning 360 Degrees Steady Sitting Down Sitting Down Uses arms or unsteady Gait and Step Initiation of Gait No hesitancy Right Foot Step Length Does pass stance foot Right Foot Step Height Completely clears floor Left Foot Step Length Does not pass stance foot Left Foot Step Height Does not clear floor Step Description Step Symmetry Step length not equal Step Continuity Steps appear continuous Gait Description Path Description Straight Trunk Description No sway but posturing Walking Stance Heels apart Scoring and Interpretation Tinetti Composite Score (points) 17 Interpretation of Scores High risk for falls(< 19) Tinetti Impairment Rating from Composite 20 to <40% Impaired (Score 17- Score 22) Vann Fall Scale Copyright Permission PT-OP-E Functional Tests Start: 03/13/19 11:58 Freq: Status: Active Protocol: Document 01/23/20 16:45 DCW (Rec: 01/23/20 17:16 DCW [id number]) Functional Tests 2 Minute Walk Test Distance 102' Device Used Bilateral walking sticks Comments .85 ft/sec Timed Up and Go (TUG) Score 31.64 Comments 3-trial average (32.24, 30.43, 32.24) TUG Impairment Rating 100% Impaired (Score 20) Tinetti Balance and Gait Assessment Balance Score 10 Gait Score 7 Composite Score 17 Balance Score Impairment Rating 20 to <40% Impaired (Score 10- 12) Gait Score Impairment Rating 40 to <60% Impaired (Score 5-7 ) Composite Score Impairment Rating 20 to <40% Impaired (Score 17- 22) PT-OP-M Strength Start: 03/13/19 11:58 Freq: Status: Active Protocol: Document 01/23/20 16:45 DCW (Rec: 07/09/20 17:16 DCW [id number]) Hip Strength Hip Manual Muscle Testing Right Flexion (L2) 4 Good Abduction 4+ Good+ Adduction 4 Good Left Flexion (L2) 4+ Good+ Abduction 4+ Good+ Adduction 4+ Good+ Knee Strength Knee Manual Muscle Testing Right Flexion (S2) 4+ Good+ Extension (L3) 4+ Good+ Left Flexion (S2) 4 Good Extension (L3) 4+ Good+ Ankle/Foot Strength Ankle and Foot Manual Muscle Testing Right Dorsiflexion (L4) 4+ Good+ Plantarflexion (S1) 4 Good Left Dorsiflexion (L4) 4+ Good+ Plantarflexion (S1) 4 Good PT-OP-Q Treatments Start: 03/13/19 11:58 Freq: Status: Active Protocol: Document 02/03/20 09:45 DCW (Rec: 02/03/20 10:29 DCW [id number]) Cardio Equipment Recumbent Elliptical (Biodex) Duration (Minutes) 5 Resistance 4 Seat Position 8 Therapeutic Exercises Other Exercises Retro Ambulation Other Exercise Name Retro Ambulation Equipment Used // bars Reps/Minutes 2x10ft Side-stepping Other Exercise Name Side-stepping at rail Side bilateral Resistance none Equipment Used // bars Reps/Minutes 10 Gait Training Gait Activity Stride length Description Step count over specific distance Device Used Walking sticks Distance/Duration 20' course Treatment Focus Improve stride length Comments # of steps: 14->12->12->12->14 ->12 Gait speed training Description 170' x2 Device Used Walking sticks Treatment Focus Increased gait speed, increased stride length Comments 170' time: 132.5 (1.28 ft/sec ); 172.11 (0.99 ft/sec). Second attempt used metronome at 80 bpm. PT-OP-T Assessment and Plan Start: 03/13/19 11:58 Freq: Status: Active Protocol: Document 02/03/20 09:45 DCW (Rec: 02/03/20 10:29 DCW [id number]) Physical Therapy Assessment Impairments Impairments Activity Tolerance,Balance, Functional Activities, Functional Mobility,Gait, Posture,Strength,Transfers Goals Five Impairment TUG score of 31.64 seconds Printing Plate Maker Goal (LTG) Pt to score at least 20 seconds on the TUG LTG Duration 03/25/20 Four Impairment Tinetti Short Term Goal (STG) Pt to score at least 20/28 on Tinetti Balance Assessment STG Duration 02/23/20 Long-Term Goal (LTG) Pt to score at least 24/28 on Tinetti Balance Assessment LTG Duration 03/25/20 Three Impairment LE MMT Short Term Goal (STG) Pt LE MMT grossly to 4/5 in order to improve balance and activity tolerance STG Duration Met Printing Plate Maker Goal (LTG) Pt LE MMT grossly to 4+/5 in order to improve balance and activity tolerance LTG Duration 03/25/20 Two Impairment Gait speed of 0.85 ft/sec during two minute walk test Short Term Goal (STG) Pt gait speed to 1.2 ft/sec (2 MWT distance of 144'). STG Duration 02/23/20 Long-Term Goal (LTG) Pt gait speed to 1.6 ft/sec (2 MWT distance of 192'). A gait speed of less than 1.97 indicates a greater likelihood of further functional decline in older adults LTG Duration 03/25/20 One Impairment Pt does not have an appropriate home exercise program Short Term Goal (STG) Pt to be independent and compliant with an appropriate HEP STG Duration 02/23/20 Assessment Summary Assessment Pt still substantially limited due to decreased activity tolerance, required a rest break after every exercise. Pt does recover fairly quickly during rest break. Physical Therapy Plan Frequency and Duration Frequency of Treatment 2x/Week Duration of Treatment 10 weeks Plan of Care Start Date 01/23/20 Plan of Care End Date 04/02/20 Therapeutic Interventions Therapeutic Interventions Aquatic Therapy,Balance Training,Home Exercise Program ,Neuromuscular Re-education, Patient/Caregiver Education, Self-Care/Home Management,Soft Tissue Mobilization, Therapeutic Activities, Therapeutic Exercises Next Visit Focus/Plan Next Note Type Treatment Note Next Visit Plan Strengthening, gait training, gait speed, balance training
--- NOTE | 2020-02-07 10:30 | PT.OTN ---
Current Diagnoses Cerebral infarction, unspecified (02/07/20) Muscle weakness (generalized) (02/07/20) Other abnormalities of gait and mobility (02/07/20) Physical Therapy Treatment Note PT-OP-A Visit Information Start: 03/13/19 11:58 Freq: Status: Active Protocol: Document 02/07/20 09:47 SP (Rec: 02/07/20 10:48 SP [id number]) Out-Patient Physical Therapy Visit Information Visit Information Visit Type Treatment Note Visit Start Time 09:47 Visit Stop Time 10:30 Total Visit Minutes 43 Visit Number 36 Number of MANAGER [employer] Visits 1 PT-OP-B Current Condition Start: 03/13/19 11:58 Freq: Status: Active Protocol: Document 03/13/19 11:15 DCW (Rec: 03/13/19 12:27 DCW [id number]) Current Condition History of Current Condition Onset Date Multi-year history Current Complaints Fatigue, weakness, imbalance, decreased gait speed History of Current Condition Pt is a 78 year old female well known to this clinic presenting with what she calls a loss of ground following her last round of physical therapy earlier in the year. Pt has a history of 5 separate CVAs, and feels her largest problem is her very slow gait speed, as well as weakness. Her slow gait speed is a long- standing issue which has previously been addressed at physical therapy, and she has shown some improvement, but typically does not perform a lot of HEP following discharge , and typically then regresses . 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 Prior Treatments and Tests Multiple rounds of physical therapy Treatment Goals Patient/Caregiver Goals Improve strengh and gait speed Prior Functional Status Baseline Function- ADL's Needs Assist Baseline Function- Mobility Needs Assist Baseline Function- Gait Very slow gait with bilateral walking sticks PT-OP-C Subjective Start: 03/13/19 11:58 Freq: Status: Active Protocol: Document 02/07/20 09:47 SP (Rec: 02/07/20 10:48 SP [id number]) OP-PT Subjective Patient Comments Patient Comments No pain today, but not feeling very strong. PT-OP-D Balance Start: 03/13/19 11:58 Freq: Status: Active Protocol: Document 01/23/20 16:45 DCW (Rec: 01/23/20 17:16 DCW [id number]) OP-PT Balance Assessment Sitting Balance Static Sitting Balance Ability Good Dynamic Sitting Balance Ability Good Standing Balance Static Standing Balance Ability Fair Dynamic Standing Balance Ability Fair Tinetti Balance Assessment Sitting Balance Sitting Balance Steady, safe Arising from Chair Ability to Arise Able, uses arms to help Attempts to Arise Arises on 1st attempt Standing Balance Immediate Standing Balance Steady with support Standing Balance Narrow stance w/o support Nudged Response Begins to fall Standing with Eyes Closed Steady Turning Step Pattern Turning 360 Degrees Discontinuous steps Stability Turning 360 Degrees Steady Sitting Down Sitting Down Uses arms or unsteady Gait and Step Initiation of Gait No hesitancy Right Foot Step Length Does pass stance foot Right Foot Step Height Completely clears floor Left Foot Step Length Does not pass stance foot Left Foot Step Height Does not clear floor Step Description Step Symmetry Step length not equal Step Continuity Steps appear continuous Gait Description Path Description Straight Trunk Description No sway but posturing Walking Stance Heels apart Scoring and Interpretation Tinetti Composite Score (points) 17 Interpretation of Scores High risk for falls(< 19) Tinetti Impairment Rating from Composite 20 to <40% Impaired (Score 17- Score 22) Vann Fall Scale Copyright Permission PT-OP-E Functional Tests Start: 03/13/19 11:58 Freq: Status: Active Protocol: Document 01/23/20 16:45 DCW (Rec: 01/23/20 17:16 DCW [id number]) Functional Tests 2 Minute Walk Test Distance 102' Device Used Bilateral walking sticks Comments .85 ft/sec Timed Up and Go (TUG) Score 31.64 Comments 3-trial average (32.24, 30.43, 32.24) TUG Impairment Rating 100% Impaired (Score 20) Tinetti Balance and Gait Assessment Balance Score 10 Gait Score 7 Composite Score 17 Balance Score Impairment Rating 20 to <40% Impaired (Score 10- 12) Gait Score Impairment Rating 40 to <60% Impaired (Score 5-7 ) Composite Score Impairment Rating 20 to <40% Impaired (Score 17- 22) PT-OP-M Strength Start: 03/13/19 11:58 Freq: Status: Active Protocol: Document 01/23/20 16:45 DCW (Rec: 01/23/20 17:16 DCW [id number]) Hip Strength Hip Manual Muscle Testing Right Flexion (L2) 4 Good Abduction 4+ Good+ Adduction 4 Good Left Flexion (L2) 4+ Good+ Abduction 4+ Good+ Adduction 4+ Good+ Knee Strength Knee Manual Muscle Testing Right Flexion (S2) 4+ Good+ Extension (L3) 4+ Good+ Left Flexion (S2) 4 Good Extension (L3) 4+ Good+ Ankle/Foot Strength Ankle and Foot Manual Muscle Testing Right Dorsiflexion (L4) 4+ Good+ Plantarflexion (S1) 4 Good Left Dorsiflexion (L4) 4+ Good+ Plantarflexion (S1) 4 Good PT-OP-Q Treatments Start: 03/13/19 11:58 Freq: Status: Active Protocol: Document 02/07/20 09:47 SP (Rec: 02/07/20 10:48 SP [id number]) Cardio Equipment Recumbent Elliptical ([employer]) Duration (Minutes) 5 Resistance 4 Seat Position 7 Therapeutic Exercises Standing Exercises Toe-taps Standing Exercise Name Toe-taps Side bilateral Equipment Used 6 step, // bars Reps/Minutes 10 Comments One hand on bars for support Other Exercises Retro Ambulation Other Exercise Name Retro Ambulation Equipment Used // bars Reps/Minutes 2x10ft Side-stepping Other Exercise Name Side-stepping at rail Side bilateral Resistance none Equipment Used // bars, 1 walking stick Reps/Minutes 4x10ft Comments One hand on // bars for support, walking stick in trailing hand sit<->stand Other Exercise Name StS training with UE assist on chair Equipment Used standard height chair Reps/Minutes 2x5 reps Comments cues for increased forward flexion Gait Training Gait Activity Stride length Description Step count over specific distance Device Used Walking sticks Distance/Duration 20' course Treatment Focus Improve stride length Comments # of steps: 16->14 (didn't count every lap) Gait speed training Description 170' x2 Device Used Walking sticks Treatment Focus Increased gait speed, increased stride length Comments 154 ft first 170sec= 0.90 ft/ sec, 2nd attempt 150 ft 133 sec=1.21 ft /sec cuing required for increased step length, metronome at 80 bps. PT-OP-T Assessment and Plan Start: 03/13/19 11:58 Freq: Status: Active Protocol: Document 02/07/20 09:47 SP (Rec: 02/07/20 10:48 SP [id number]) Physical Therapy Assessment Goals Five Impairment TUG score of 31.64 seconds Ground Crewman Aircraft Support Goal (LTG) Pt to score at least 20 seconds on the TUG LTG Duration 03/25/20 Four Impairment Tinetti Short Term Goal (STG) Pt to score at least 20/28 on Tinetti Balance Assessment STG Duration 02/23/20 Ground Crewman Aircraft Support Goal (LTG) Pt to score at least 24/28 on Tinetti Balance Assessment LTG Duration 03/25/20 Three Impairment LE MMT Short Term Goal (STG) Pt LE MMT grossly to 4/5 in order to improve balance and activity tolerance STG Duration Met Ground Crewman Aircraft Support Goal (LTG) Pt LE MMT grossly to 4+/5 in order to improve balance and activity tolerance LTG Duration 03/25/20 Two Impairment Gait speed of 0.85 ft/sec during two minute walk test Short Term Goal (STG) Pt gait speed to 1.2 ft/sec (2 MWT distance of 144'). STG Duration 02/23/20 Long-Term Goal (LTG) Pt gait speed to 1.6 ft/sec (2 MWT distance of 192'). A gait speed of less than 1.97 indicates a greater likelihood of further functional decline in older adults LTG Duration 03/25/20 One Impairment Pt does not have an appropriate home exercise program Short Term Goal (STG) Pt to be independent and compliant with an appropriate HEP STG Duration 02/23/20 Assessment Summary Assessment Pt displays impairments in B LE strength and endurance with R>L. Impairments result in decreased stride length and difficulty with foot clearance during gait. Pt ambulates with 4pt gait pattern, using B walking sticks, decreased activity tolerance and noted increased breathing rate end of distance walking requried seated rest for recovery. Continue PT to improve B LE strength, with emphasis on hips/glutes to complete functional movements safely and reduce fall risk. Physical Therapy Plan Frequency and Duration Frequency of Treatment 2x/Week Duration of Treatment 10 weeks Plan of Care Start Date 01/23/20 Plan of Care End Date 04/02/20 Therapeutic Interventions Therapeutic Interventions Aquatic Therapy,Balance Training,Home Exercise Program ,Neuromuscular Re-education, Patient/Caregiver Education, Self-Care/Home Management,Soft Tissue Mobilization, Therapeutic Activities, Therapeutic Exercises Next Visit Focus/Plan Next Note Type Treatment Note Next Visit Plan Strengthening, gait training, gait speed, balance training
--- NOTE | 2020-02-11 11:18 | PT.OTN ---
Current Diagnoses Cerebral infarction, unspecified (02/11/20) Muscle weakness (generalized) (02/11/20) Other abnormalities of gait and mobility (02/11/20) Physical Therapy Treatment Note PT-OP-A Visit Information Start: 03/13/19 11:58 Freq: Status: Active Protocol: Document 02/11/20 10:30 SP (Rec: 02/11/20 14:09 SP [id number]) Out-Patient Physical Therapy Visit Information Visit Information Visit Type Treatment Note Visit Note SALON COORDINATOR student Kristy instructed ther ex and provided gait distance calculation during treatment. Visit Start Time 10:30 Visit Stop Time 11:17 Total Visit Minutes 47 Visit Number 37 Number of SALON COORDINATOR Visits 2 PT-OP-B Current Condition Start: 03/13/19 11:58 Freq: Status: Active Protocol: Document 03/13/19 11:15 DCW (Rec: 03/13/19 12:27 DCW [id number]) Current Condition History of Current Condition Onset Date Multi-year history Current Complaints Fatigue, weakness, imbalance, decreased gait speed History of Current Condition Pt is a 78 year old female well known to this clinic presenting with what she calls a loss of ground following her last round of physical therapy earlier in the year. Pt has a history of 5 separate CVAs, and feels her largest problem is her very slow gait speed, as well as weakness. Her slow gait speed is a long- standing issue which has previously been addressed at physical therapy, and she has shown some improvement, but typically does not perform a lot of HEP following discharge , and typically then regresses . 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 Prior Treatments and Tests Multiple rounds of physical therapy Treatment Goals Patient/Caregiver Goals Improve strengh and gait speed Prior Functional Status Baseline Function- ADL's Needs Assist Baseline Function- Mobility Needs Assist Baseline Function- Gait Very slow gait with bilateral walking sticks PT-OP-C Subjective Start: 03/13/19 11:58 Freq: Status: Active Protocol: Document 02/11/20 10:30 SP (Rec: 02/11/20 14:09 SP [id number]) OP-PT Subjective Patient Comments Patient Comments I am don't have much energy today, my balance doesn't seem to be as good walking around at house. No significant improvement noted when asked since started back to PT. PT-OP-D Balance Start: 03/13/19 11:58 Freq: Status: Active Protocol: Document 01/23/20 16:45 DCW (Rec: 01/23/20 17:16 DCW [id number]) OP-PT Balance Assessment Sitting Balance Static Sitting Balance Ability Good Dynamic Sitting Balance Ability Good Standing Balance Static Standing Balance Ability Fair Dynamic Standing Balance Ability Fair Tinetti Balance Assessment Sitting Balance Sitting Balance Steady, safe Arising from Chair Ability to Arise Able, uses arms to help Attempts to Arise Arises on 1st attempt Standing Balance Immediate Standing Balance Steady with support Standing Balance Narrow stance w/o support Nudged Response Begins to fall Standing with Eyes Closed Steady Turning Step Pattern Turning 360 Degrees Discontinuous steps Stability Turning 360 Degrees Steady Sitting Down Sitting Down Uses arms or unsteady Gait and Step Initiation of Gait No hesitancy Right Foot Step Length Does pass stance foot Right Foot Step Height Completely clears floor Left Foot Step Length Does not pass stance foot Left Foot Step Height Does not clear floor Step Description Step Symmetry Step length not equal Step Continuity Steps appear continuous Gait Description Path Description Straight Trunk Description No sway but posturing Walking Stance Heels apart Scoring and Interpretation Tinetti Composite Score (points) 17 Interpretation of Scores High risk for falls(< 19) Tinetti Impairment Rating from Composite 20 to <40% Impaired (Score 17- Score 22) Vann Fall Scale Copyright Permission PT-OP-E Functional Tests Start: 03/13/19 11:58 Freq: Status: Active Protocol: Document 01/23/20 16:45 DCW (Rec: 01/23/20 17:16 DCW [id number]) Functional Tests 2 Minute Walk Test Distance 102' Device Used Bilateral walking sticks Comments .85 ft/sec Timed Up and Go (TUG) Score 31.64 Comments 3-trial average (32.24, 30.43, 32.24) TUG Impairment Rating 100% Impaired (Score 20) Tinetti Balance and Gait Assessment Balance Score 10 Gait Score 7 Composite Score 17 Balance Score Impairment Rating 20 to <40% Impaired (Score 10- 12) Gait Score Impairment Rating 40 to <60% Impaired (Score 5-7 ) Composite Score Impairment Rating 20 to <40% Impaired (Score 17- 22) PT-OP-M Strength Start: 03/13/19 11:58 Freq: Status: Active Protocol: Document 01/23/20 16:45 DCW (Rec: 01/23/20 17:16 DCW [id number]) Hip Strength Hip Manual Muscle Testing Right Flexion (L2) 4 Good Abduction 4+ Good+ Adduction 4 Good Left Flexion (L2) 4+ Good+ Abduction 4+ Good+ Adduction 4+ Good+ Knee Strength Knee Manual Muscle Testing Right Flexion (S2) 4+ Good+ Extension (L3) 4+ Good+ Left Flexion (S2) 4 Good Extension (L3) 4+ Good+ Ankle/Foot Strength Ankle and Foot Manual Muscle Testing Right Dorsiflexion (L4) 4+ Good+ Plantarflexion (S1) 4 Good Left Dorsiflexion (L4) 4+ Good+ Plantarflexion (S1) 4 Good PT-OP-Q Treatments Start: 03/13/19 11:58 Freq: Status: Active Protocol: Document 02/11/20 10:30 SP (Rec: 02/11/20 14:09 SP [id number]) Cardio Equipment Recumbent Elliptical ([employer]) Duration (Minutes) 6 Resistance 4 Seat Position 7 Therapeutic Exercises Standing Exercises Toe-taps Standing Exercise Name Toe-taps x5 reps lead each LE, step ups x5 lead each LE Side bilateral Equipment Used 6 step, // bars with same side 1 UE Reps/Minutes 10 Comments One hand on bars for support Other Exercises Retro Ambulation Other Exercise Name september forward then Retro Ambulation Equipment Used 1 one waking stick Reps/Minutes 2x10ft in //bars Comments cued upright posture, increased step length Side-stepping Other Exercise Name Side-stepping at rail Side bilateral Resistance none Equipment Used within in //bars used R walking stick Reps/Minutes 4x10ft Comments cued increased step length and right posture sit<->stand Other Exercise Name StS training with UE assist on chair Equipment Used standard height chair Reps/Minutes x5 reps Comments cues for feet under knees and hip hinge forward pushing off seat Gait Training Gait Activity Stride length Description Step count over specific distance Device Used 1 Walking sticks Distance/Duration 20' course Treatment Focus Improve stride length Comments # of steps: 18>12>12 Gait speed training Description 187' x2 (completed end of tx) Device Used Walking sticks Treatment Focus Increased gait speed, increased stride length Comments 187 ft first 206sec= 1.03 ft/ sec ( 1 stop stand brief rest did not count rest time), 2nd attempt 187 ft 206 sec=.90 ft /sec (no stand rest) cuing required for increased step length, pt requested metronome decrease to 75 bps. 80 bpm to fast today. PT-OP-T Assessment and Plan Start: 03/13/19 11:58 Freq: Status: Active Protocol: Document 02/11/20 10:30 SP (Rec: 02/11/20 14:09 SP [id number]) Physical Therapy Assessment Goals Five Impairment TUG score of 31.64 seconds Senior Care Goal (LTG) Pt to score at least 20 seconds on the TUG LTG Duration 03/25/20 Four Impairment Tinetti Short Term Goal (STG) Pt to score at least 20/28 on Tinetti Balance Assessment STG Duration 02/23/20 Senior Care Goal (LTG) Pt to score at least 24/28 on Tinetti Balance Assessment LTG Duration 03/25/20 Three Impairment LE MMT Short Term Goal (STG) Pt LE MMT grossly to 4/5 in order to improve balance and activity tolerance STG Duration Met Senior Care Goal (LTG) Pt LE MMT grossly to 4+/5 in order to improve balance and activity tolerance LTG Duration 03/25/20 Two Impairment Gait speed of 0.85 ft/sec during two minute walk test Short Term Goal (STG) Pt gait speed to 1.2 ft/sec (2 MWT distance of 144'). STG Duration 02/23/20 Indian Trader Goal (LTG) Pt gait speed to 1.6 ft/sec (2 MWT distance of 192'). A gait speed of less than 1.97 indicates a greater likelihood of further functional decline in older adults LTG Duration 03/25/20 One Impairment Pt does not have an appropriate home exercise program Short Term Goal (STG) Pt to be independent and compliant with an appropriate HEP STG Duration 02/23/20 Assessment Summary Assessment Pt with improved R hip glut facilitation level pelvis during standing exercises and 1 UE use with walking stick, continued cuing required for increased step/ stride length. Pt improvement in distance gait usuing B walking sticks without seated rest today required but continued cuing for increased stride length and incresed pacing. Pt has decreased foot clearance about 90 ft requiring CGA for safety. Requires encouragement for progressive stepping. Physical Therapy Plan Frequency and Duration Frequency of Treatment 2x/Week Duration of Treatment 10 weeks Plan of Care Start Date 01/23/20 Plan of Care End Date 04/02/20 Therapeutic Interventions Therapeutic Interventions Aquatic Therapy,Balance Training,Home Exercise Program ,Neuromuscular Re-education, Patient/Caregiver Education, Self-Care/Home Management,Soft Tissue Mobilization, Therapeutic Activities, Therapeutic Exercises Next Visit Focus/Plan Next Note Type Treatment Note Next Visit Plan Asssess response to last tx. Continue per PT POC: Strengthening, gait training, gait speed, balance training
--- NOTE | 2020-02-14 15:18 | PT.OTN ---
Current Diagnoses Cerebral infarction, unspecified (02/14/20) Muscle weakness (generalized) (02/14/20) Other abnormalities of gait and mobility (02/14/20) Physical Therapy Treatment Note PT-OP-A Visit Information Start: 03/13/19 11:58 Freq: Status: Active Protocol: Document 02/14/20 14:30 DCW (Rec: 02/14/20 15:17 DCW [id number]) Out-Patient Physical Therapy Visit Information Visit Information Visit Type Treatment Note Visit Start Time 14:30 Visit Stop Time 15:15 Total Visit Minutes 45 Visit Number 38 Number of DIRECTOR OF CODING Visits 0 PT-OP-B Current Condition Start: 03/13/19 11:58 Freq: Status: Active Protocol: Document 03/13/19 11:15 DCW (Rec: 03/13/19 12:27 DCW [id number]) Current Condition History of Current Condition Onset Date Multi-year history Current Complaints Fatigue, weakness, imbalance, decreased gait speed History of Current Condition Pt is a 78 year old female well known to this clinic presenting with what she calls a loss of ground following her last round of physical therapy earlier in the year. Pt has a history of 5 separate CVAs, and feels her largest problem is her very slow gait speed, as well as weakness. Her slow gait speed is a long- standing issue which has previously been addressed at physical therapy, and she has shown some improvement, but typically does not perform a lot of HEP following discharge , and typically then regresses . Pt does note she has been working with a weight trainer in the local pool, and has begun attending gentle yoga classes, as well as a dancing class for people with disabilities. Prior Treatments and Tests Multiple rounds of physical therapy Treatment Goals Patient/Caregiver Goals Improve strengh and gait speed Prior Functional Status Baseline Function- ADL's Needs Assist Baseline Function- Mobility Needs Assist Baseline Function- Gait Very slow gait with bilateral walking sticks PT-OP-C Subjective Start: 03/13/19 11:58 Freq: Status: Active Protocol: Document 02/14/20 14:30 DCW (Rec: 02/14/20 15:17 DCW [id number]) OP-PT Subjective Patient Comments Patient Comments I think I'm actually doing pretty good today. PT-OP-D Balance Start: 03/13/19 11:58 Freq: Status: Active Protocol: Document 01/23/20 16:45 DCW (Rec: 01/23/20 17:16 DCW [id number]) OP-PT Balance Assessment Sitting Balance Static Sitting Balance Ability Good Dynamic Sitting Balance Ability Good Standing Balance Static Standing Balance Ability Fair Dynamic Standing Balance Ability Fair Tinetti Balance Assessment Sitting Balance Sitting Balance Steady, safe Arising from Chair Ability to Arise Able, uses arms to help Attempts to Arise Arises on 1st attempt Standing Balance Immediate Standing Balance Steady with support Standing Balance Narrow stance w/o support Nudged Response Begins to fall Standing with Eyes Closed Steady Turning Step Pattern Turning 360 Degrees Discontinuous steps Stability Turning 360 Degrees Steady Sitting Down Sitting Down Uses arms or unsteady Gait and Step Initiation of Gait No hesitancy Right Foot Step Length Does pass stance foot Right Foot Step Height Completely clears floor Left Foot Step Length Does not pass stance foot Left Foot Step Height Does not clear floor Step Description Step Symmetry Step length not equal Step Continuity Steps appear continuous Gait Description Path Description Straight Trunk Description No sway but posturing Walking Stance Heels apart Scoring and Interpretation Tinetti Composite Score (points) 17 Interpretation of Scores High risk for falls(< 19) Tinetti Impairment Rating from Composite 20 to <40% Impaired (Score 17- Score 22) Vann Fall Scale Copyright Permission PT-OP-E Functional Tests Start: 03/13/19 11:58 Freq: Status: Active Protocol: Document 01/23/20 16:45 DCW (Rec: 01/23/20 17:16 DCW [id number]) Functional Tests 2 Minute Walk Test Distance 102' Device Used Bilateral walking sticks Comments .85 ft/sec Timed Up and Go (TUG) Score 31.64 Comments 3-trial average (32.24, 30.43, 32.24) TUG Impairment Rating 100% Impaired (Score 20) Tinetti Balance and Gait Assessment Balance Score 10 Gait Score 7 Composite Score 17 Balance Score Impairment Rating 20 to <40% Impaired (Score 10- 12) Gait Score Impairment Rating 40 to <60% Impaired (Score 5-7 ) Composite Score Impairment Rating 20 to <40% Impaired (Score 17- 22) PT-OP-M Strength Start: 03/13/19 11:58 Freq: Status: Active Protocol: Document 01/23/20 16:45 DCW (Rec: 01/23/20 17:16 DCW [id number]) Hip Strength Hip Manual Muscle Testing Right Flexion (L2) 4 Good Abduction 4+ Good+ Adduction 4 Good Left Flexion (L2) 4+ Good+ Abduction 4+ Good+ Adduction 4+ Good+ Knee Strength Knee Manual Muscle Testing Right Flexion (S2) 4+ Good+ Extension (L3) 4+ Good+ Left Flexion (S2) 4 Good Extension (L3) 4+ Good+ Ankle/Foot Strength Ankle and Foot Manual Muscle Testing Right Dorsiflexion (L4) 4+ Good+ Plantarflexion (S1) 4 Good Left Dorsiflexion (L4) 4+ Good+ Plantarflexion (S1) 4 Good PT-OP-Q Treatments Start: 03/13/19 11:58 Freq: Status: Active Protocol: Document 02/14/20 14:30 DCW (Rec: 02/14/20 15:17 DCW [id number]) Cardio Equipment Recumbent Elliptical (Biodex) Duration (Minutes) 5 Resistance 4 Seat Position 7 Therapeutic Exercises Standing Exercises Toe-taps Standing Exercise Name Toe-taps Side bilateral Equipment Used 6 step, // bars Reps/Minutes 10 Comments One hand on bars for support Hurdles Standing Exercise Name Hurdles Equipment Used // bars Comments Forward Other Exercises Retro Ambulation Other Exercise Name Retro Ambulation Equipment Used // bars Reps/Minutes 2x10ft Gait Training Gait Activity Stride length Description Step count over specific distance Device Used Walking sticks Distance/Duration 20' course Comments # of steps: 12->13->12->14->10 ->12 Gait speed training Description 170' x2 Device Used Walking sticks Treatment Focus Increased gait speed, increased stride length Comments 170' time: 141.5 (1.20 ft/sec ); 144.78 (1.17 ft/sec). Second attempt used metronome at 80 bpm. PT-OP-T Assessment and Plan Start: 03/13/19 11:58 Freq: Status: Active Protocol: Document 02/14/20 14:30 DCW (Rec: 02/14/20 15:17 DCW [id number]) Physical Therapy Assessment Goals Five Impairment TUG score of 31.64 seconds Halfway Goal (LTG) Pt to score at least 20 seconds on the TUG LTG Duration 03/25/20 Four Impairment Tinetti Short Term Goal (STG) Pt to score at least 20/28 on Tinetti Balance Assessment STG Duration 02/23/20 Furnace Clerk Goal (LTG) Pt to score at least 24/28 on Tinetti Balance Assessment LTG Duration 03/25/20 Three Impairment LE MMT Short Term Goal (STG) Pt LE MMT grossly to 4/5 in order to improve balance and activity tolerance STG Duration Met Halfway Goal (LTG) Pt LE MMT grossly to 4+/5 in order to improve balance and activity tolerance LTG Duration 03/25/20 Two Impairment Gait speed of 0.85 ft/sec during two minute walk test Short Term Goal (STG) Pt gait speed to 1.2 ft/sec (2 MWT distance of 144'). STG Duration 02/23/20 Furnace Clerk Goal (LTG) Pt gait speed to 1.6 ft/sec (2 MWT distance of 192'). A gait speed of less than 1.97 indicates a greater likelihood of further functional decline in older adults LTG Duration 03/25/20 One Impairment Pt does not have an appropriate home exercise program Short Term Goal (STG) Pt to be independent and compliant with an appropriate HEP STG Duration 02/23/20 Assessment Summary Assessment Pt did well with some activities today and struggled with others. Required a standing rest break during both 170' walks today, which she has never needed before when doing them at the start of her session. Pt was, however, able to ambulate 20 feet in only 10 steps for the first time, demonstrating a large increase in stride length Physical Therapy Plan Frequency and Duration Frequency of Treatment 2x/Week Duration of Treatment 10 weeks Plan of Care Start Date 01/23/20 Plan of Care End Date 04/02/20 Therapeutic Interventions Therapeutic Interventions Aquatic Therapy,Balance Training,Home Exercise Program ,Neuromuscular Re-education, Patient/Caregiver Education, Self-Care/Home Management,Soft Tissue Mobilization, Therapeutic Activities, Therapeutic Exercises Next Visit Focus/Plan Next Note Type Treatment Note Next Visit Plan Continue per PT POC: Strengthening, gait training, gait speed, balance training
--- NOTE | 2020-02-18 10:30 | PT.OTN ---
Current Diagnoses Cerebral infarction, unspecified (02/18/20) Muscle weakness (generalized) (02/18/20) Other abnormalities of gait and mobility (02/18/20) Physical Therapy Treatment Note PT-OP-A Visit Information Start: 03/13/19 11:58 Freq: Status: Active Protocol: Document 02/18/20 09:50 DCW (Rec: 02/18/20 10:30 DCW [id number]) Out-Patient Physical Therapy Visit Information Visit Information Visit Type Treatment Note Visit Note 5 min late Visit Start Time 09:50 Visit Stop Time 10:30 Total Visit Minutes 40 Visit Number 39 Number of MANAGER HEALTH Visits 0 PT-OP-B Current Condition Start: 03/13/19 11:58 Freq: Status: Active Protocol: Document 03/13/19 11:15 DCW (Rec: 03/13/19 12:27 DCW [id number]) Current Condition History of Current Condition Onset Date Multi-year history Current Complaints Fatigue, weakness, imbalance, decreased gait speed History of Current Condition Pt is a 78 year old female well known to this clinic presenting with what she calls a loss of ground following her last round of physical therapy earlier in the year. Pt has a history of 5 separate CVAs, and feels her largest problem is her very slow gait speed, as well as weakness. Her slow gait speed is a long- standing issue which has previously been addressed at physical therapy, and she has shown some improvement, but typically does not perform a lot of HEP following discharge , and typically then regresses . Pt does note she has been working with a technology trainer in the local pool, and has begun attending gentle yoga classes, as well as a dancing class for people with disabilities. Prior Treatments and Tests Multiple rounds of physical therapy Treatment Goals Patient/Caregiver Goals Improve strengh and gait speed Prior Functional Status Baseline Function- ADL's Needs Assist Baseline Function- Mobility Needs Assist Baseline Function- Gait Very slow gait with bilateral walking sticks PT-OP-C Subjective Start: 03/13/19 11:58 Freq: Status: Active Protocol: Document 02/18/20 09:50 DCW (Rec: 02/18/20 10:30 DCW [id number]) OP-PT Subjective Patient Comments Patient Comments I just woke up, so I'm not too fast right now. PT-OP-D Balance Start: 03/13/19 11:58 Freq: Status: Active Protocol: Document 01/23/20 16:45 DCW (Rec: 01/23/20 17:16 DCW [id number]) OP-PT Balance Assessment Sitting Balance Static Sitting Balance Ability Good Dynamic Sitting Balance Ability Good Standing Balance Static Standing Balance Ability Fair Dynamic Standing Balance Ability Fair Tinetti Balance Assessment Sitting Balance Sitting Balance Steady, safe Arising from Chair Ability to Arise Able, uses arms to help Attempts to Arise Arises on 1st attempt Standing Balance Immediate Standing Balance Steady with support Standing Balance Narrow stance w/o support Nudged Response Begins to fall Standing with Eyes Closed Steady Turning Step Pattern Turning 360 Degrees Discontinuous steps Stability Turning 360 Degrees Steady Sitting Down Sitting Down Uses arms or unsteady Gait and Step Initiation of Gait No hesitancy Right Foot Step Length Does pass stance foot Right Foot Step Height Completely clears floor Left Foot Step Length Does not pass stance foot Left Foot Step Height Does not clear floor Step Description Step Symmetry Step length not equal Step Continuity Steps appear continuous Gait Description Path Description Straight Trunk Description No sway but posturing Walking Stance Heels apart Scoring and Interpretation Tinetti Composite Score (points) 17 Interpretation of Scores High risk for falls(< 19) Tinetti Impairment Rating from Composite 20 to <40% Impaired (Score 17- Score 22) Vann Fall Scale Copyright Permission PT-OP-E Functional Tests Start: 03/13/19 11:58 Freq: Status: Active Protocol: Document 01/23/20 16:45 DCW (Rec: 01/23/20 17:16 DCW [id number]) Functional Tests 2 Minute Walk Test Distance 102' Device Used Bilateral walking sticks Comments .85 ft/sec Timed Up and Go (TUG) Score 31.64 Comments 3-trial average (32.24, 30.43, 32.24) TUG Impairment Rating 100% Impaired (Score 20) Tinetti Balance and Gait Assessment Balance Score 10 Gait Score 7 Composite Score 17 Balance Score Impairment Rating 20 to <40% Impaired (Score 10- 12) Gait Score Impairment Rating 40 to <60% Impaired (Score 5-7 ) Composite Score Impairment Rating 20 to <40% Impaired (Score 17- 22) PT-OP-M Strength Start: 03/13/19 11:58 Freq: Status: Active Protocol: Document 01/23/20 16:45 DCW (Rec: 01/23/20 17:16 DCW [id number]) Hip Strength Hip Manual Muscle Testing Right Flexion (L2) 4 Good Abduction 4+ Good+ Adduction 4 Good Left Flexion (L2) 4+ Good+ Abduction 4+ Good+ Adduction 4+ Good+ Knee Strength Knee Manual Muscle Testing Right Flexion (S2) 4+ Good+ Extension (L3) 4+ Good+ Left Flexion (S2) 4 Good Extension (L3) 4+ Good+ Ankle/Foot Strength Ankle and Foot Manual Muscle Testing Right Dorsiflexion (L4) 4+ Good+ Plantarflexion (S1) 4 Good Left Dorsiflexion (L4) 4+ Good+ Plantarflexion (S1) 4 Good PT-OP-Q Treatments Start: 03/13/19 11:58 Freq: Status: Active Protocol: Document 02/18/20 09:50 DCW (Rec: 02/18/20 10:30 DCW [id number]) Therapeutic Exercises Other Exercises Retro Ambulation Other Exercise Name Retro Ambulation Equipment Used @ rail Reps/Minutes 2x10ft Side-stepping Other Exercise Name Side-stepping at rail Side bilateral Resistance none Reps/Minutes 20' x2 Comments cued increased step length and right posture Gait Training Gait Activity Stride length Description Step count over specific distance Device Used Walking sticks Distance/Duration 20' course Comments # of steps: 14->12->12->12->13 ->12 Gait speed training Description 170' x2 Device Used Walking sticks Treatment Focus Increased gait speed, increased stride length Comments 170' time: 182.54 (0.93 ft/ sec); 204.39 (0.83 ft/sec). Both attempts used metronome at 80 bpm. PT-OP-T Assessment and Plan Start: 03/13/19 11:58 Freq: Status: Active Protocol: Document 02/18/20 09:50 DCW (Rec: 02/18/20 10:30 DCW [id number]) Physical Therapy Assessment Goals Five Impairment TUG score of 31.64 seconds Mcfp Goal (LTG) Pt to score at least 20 seconds on the TUG LTG Duration 03/25/20 Four Impairment Tinetti Short Term Goal (STG) Pt to score at least 20/28 on Tinetti Balance Assessment STG Duration 02/23/20 Mcfp Goal (LTG) Pt to score at least 24/28 on Tinetti Balance Assessment LTG Duration 03/25/20 Three Impairment LE MMT Short Term Goal (STG) Pt LE MMT grossly to 4/5 in order to improve balance and activity tolerance STG Duration Met Inspector Quality Assurance Goal (LTG) Pt LE MMT grossly to 4+/5 in order to improve balance and activity tolerance LTG Duration 03/25/20 Two Impairment Gait speed of 0.85 ft/sec during two minute walk test Short Term Goal (STG) Pt gait speed to 1.2 ft/sec (2 MWT distance of 144'). STG Duration 02/23/20 Mcfp Goal (LTG) Pt gait speed to 1.6 ft/sec (2 MWT distance of 192'). A gait speed of less than 1.97 indicates a greater likelihood of further functional decline in older adults LTG Duration 03/25/20 One Impairment Pt does not have an appropriate home exercise program Short Term Goal (STG) Pt to be independent and compliant with an appropriate HEP STG Duration 02/23/20 Assessment Summary Assessment Pt overall did pretty poorly today. Pt frequently struggles with morning nanny appointments, adn admitted today she had not eaten or drank anything prior to her appointment today. Physical Therapy Plan Frequency and Duration Frequency of Treatment 2x/Week Duration of Treatment 10 weeks Plan of Care Start Date 01/23/20 Plan of Care End Date 04/02/20 Therapeutic Interventions Therapeutic Interventions Aquatic Therapy,Balance Training,Home Exercise Program ,Neuromuscular Re-education, Patient/Caregiver Education, Self-Care/Home Management,Soft Tissue Mobilization, Therapeutic Activities, Therapeutic Exercises Next Visit Focus/Plan Next Note Type Treatment Note Next Visit Plan Continue per PT POC: Strengthening, gait training, gait speed, balance training
--- NOTE | 2020-02-25 12:00 | PT.OTN ---
Current Diagnoses Cerebral infarction, unspecified (02/25/20) Muscle weakness (generalized) (02/25/20) Other abnormalities of gait and mobility (02/25/20) Physical Therapy Treatment Note PT-OP-A Visit Information Start: 03/13/19 11:58 Freq: Status: Active Protocol: Document 02/25/20 11:15 DCW (Rec: 02/25/20 12:00 DCW [id number]) Out-Patient Physical Therapy Visit Information Visit Information Visit Type Treatment Note Visit Start Time 11:15 Visit Stop Time 12:00 Total Visit Minutes 45 Visit Number 40 Number of BONDING MOLDER Visits 0 PT-OP-B Current Condition Start: 03/13/19 11:58 Freq: Status: Active Protocol: Document 03/13/19 11:15 DCW (Rec: 03/13/19 12:27 DCW [id number]) Current Condition History of Current Condition Onset Date Multi-year history Current Complaints Fatigue, weakness, imbalance, decreased gait speed History of Current Condition Pt is a 78 year old female well known to this clinic presenting with what she calls a loss of ground following her last round of physical therapy earlier in the year. Pt has a history of 5 separate CVAs, and feels her largest problem is her very slow gait speed, as well as weakness. Her slow gait speed is a long- standing issue which has previously been addressed at physical therapy, and she has shown some improvement, but typically does not perform a lot of HEP following discharge , and typically then regresses . Pt does note she has been working with a [employer] trainer in the local pool, and has begun attending gentle yoga classes, as well as a dancing class for people with disabilities. Prior Treatments and Tests Multiple rounds of physical therapy Treatment Goals Patient/Caregiver Goals Improve strengh and gait speed Prior Functional Status Baseline Function- ADL's Needs Assist Baseline Function- Mobility Needs Assist Baseline Function- Gait Very slow gait with bilateral walking sticks PT-OP-C Subjective Start: 03/13/19 11:58 Freq: Status: Active Protocol: Document 02/25/20 11:15 DCW (Rec: 02/25/20 12:00 DCW [id number]) OP-PT Subjective Patient Comments Patient Comments I slept until 10, and then had breakfast, so I'm feeling pretty good right now. PT-OP-D Balance Start: 03/13/19 11:58 Freq: Status: Active Protocol: Document 01/23/20 16:45 DCW (Rec: 01/23/20 17:16 DCW [id number]) OP-PT Balance Assessment Sitting Balance Static Sitting Balance Ability Good Dynamic Sitting Balance Ability Good Standing Balance Static Standing Balance Ability Fair Dynamic Standing Balance Ability Fair Tinetti Balance Assessment Sitting Balance Sitting Balance Steady, safe Arising from Chair Ability to Arise Able, uses arms to help Attempts to Arise Arises on 1st attempt Standing Balance Immediate Standing Balance Steady with support Standing Balance Narrow stance w/o support Nudged Response Begins to fall Standing with Eyes Closed Steady Turning Step Pattern Turning 360 Degrees Discontinuous steps Stability Turning 360 Degrees Steady Sitting Down Sitting Down Uses arms or unsteady Gait and Step Initiation of Gait No hesitancy Right Foot Step Length Does pass stance foot Right Foot Step Height Completely clears floor Left Foot Step Length Does not pass stance foot Left Foot Step Height Does not clear floor Step Description Step Symmetry Step length not equal Step Continuity Steps appear continuous Gait Description Path Description Straight Trunk Description No sway but posturing Walking Stance Heels apart Scoring and Interpretation Tinetti Composite Score (points) 17 Interpretation of Scores High risk for falls(< 19) Tinetti Impairment Rating from Composite 20 to <40% Impaired (Score 17- Score 22) Vann Fall Scale Copyright Permission PT-OP-E Functional Tests Start: 03/13/19 11:58 Freq: Status: Active Protocol: Document 01/23/20 16:45 DCW (Rec: 01/23/20 17:16 DCW [id number]) Functional Tests 2 Minute Walk Test Distance 102' Device Used Bilateral walking sticks Comments .85 ft/sec Timed Up and Go (TUG) Score 31.64 Comments 3-trial average (32.24, 30.43, 32.24) TUG Impairment Rating 100% Impaired (Score 20) Tinetti Balance and Gait Assessment Balance Score 10 Gait Score 7 Composite Score 17 Balance Score Impairment Rating 20 to <40% Impaired (Score 10- 12) Gait Score Impairment Rating 40 to <60% Impaired (Score 5-7 ) Composite Score Impairment Rating 20 to <40% Impaired (Score 17- 22) PT-OP-M Strength Start: 03/13/19 11:58 Freq: Status: Active Protocol: Document 01/23/20 16:45 DCW (Rec: 01/23/20 17:16 DCW [id number]) Hip Strength Hip Manual Muscle Testing Right Flexion (L2) 4 Good Abduction 4+ Good+ Adduction 4 Good Left Flexion (L2) 4+ Good+ Abduction 4+ Good+ Adduction 4+ Good+ Knee Strength Knee Manual Muscle Testing Right Flexion (S2) 4+ Good+ Extension (L3) 4+ Good+ Left Flexion (S2) 4 Good Extension (L3) 4+ Good+ Ankle/Foot Strength Ankle and Foot Manual Muscle Testing Right Dorsiflexion (L4) 4+ Good+ Plantarflexion (S1) 4 Good Left Dorsiflexion (L4) 4+ Good+ Plantarflexion (S1) 4 Good PT-OP-Q Treatments Start: 03/13/19 11:58 Freq: Status: Active Protocol: Document 02/25/20 11:15 DCW (Rec: 02/25/20 12:00 DCW [id number]) Cardio Equipment Recumbent Elliptical ([employer]) Duration (Minutes) 5 Resistance 4 Seat Position 7 Therapeutic Exercises Standing Exercises Hurdles Standing Exercise Name Hurdles Equipment Used // bars Comments Forward Other Exercises Retro Ambulation Other Exercise Name Retro Ambulation Equipment Used // bars Reps/Minutes 4x10' Side-stepping Other Exercise Name Side-stepping at rail Side bilateral Resistance none Reps/Minutes 4x10' Comments cued increased step length and right posture Gait Training Gait Activity Stride length Description Step count over specific distance Device Used Walking sticks Distance/Duration 20' course Comments # of steps: 14->13->11->12->12 ->13 Gait speed training Description 170' x2 Device Used Walking sticks Treatment Focus Increased gait speed, increased stride length Comments 170' time: 139.02 (1.22 ft/ sec); 120.70 (1.41 ft/sec). Both attempts used metronome at 80 bpm. PT-OP-T Assessment and Plan Start: 03/13/19 11:58 Freq: Status: Active Protocol: Document 02/25/20 11:15 DCW (Rec: 02/25/20 12:00 DCW [id number]) Physical Therapy Assessment Goals Five Impairment TUG score of 31.64 seconds Residential Goal (LTG) Pt to score at least 20 seconds on the TUG LTG Duration 03/25/20 Four Impairment Tinetti Short Term Goal (STG) Pt to score at least 20/28 on Tinetti Balance Assessment STG Duration 02/23/20 Card Game Operator Goal (LTG) Pt to score at least 24/28 on Tinetti Balance Assessment LTG Duration 03/25/20 Three Impairment LE MMT Short Term Goal (STG) Pt LE MMT grossly to 4/5 in order to improve balance and activity tolerance STG Duration Met Residential Goal (LTG) Pt LE MMT grossly to 4+/5 in order to improve balance and activity tolerance LTG Duration 03/25/20 Two Impairment Gait speed of 0.85 ft/sec during two minute walk test Short Term Goal (STG) Pt gait speed to 1.2 ft/sec (2 MWT distance of 144'). STG Duration 02/23/20 Card Game Operator Goal (LTG) Pt gait speed to 1.6 ft/sec (2 MWT distance of 192'). A gait speed of less than 1.97 indicates a greater likelihood of further functional decline in older adults LTG Duration 03/25/20 One Impairment Pt does not have an appropriate home exercise program Short Term Goal (STG) Pt to be independent and compliant with an appropriate HEP STG Duration 02/23/20 Assessment Summary Assessment Pt did much better today. Pt demonstrated increased gait speed today, improved activity tolerance. Pt required fewer rest breaks as well today. Physical Therapy Plan Frequency and Duration Frequency of Treatment 2x/Week Duration of Treatment 10 weeks Plan of Care Start Date 01/23/20 Plan of Care End Date 04/02/20 Therapeutic Interventions Therapeutic Interventions Aquatic Therapy,Balance Training,Home Exercise Program ,Neuromuscular Re-education, Patient/Caregiver Education, Self-Care/Home Management,Soft Tissue Mobilization, Therapeutic Activities, Therapeutic Exercises Next Visit Focus/Plan Next Note Type Treatment Note Next Visit Plan Continue per PT POC: Strengthening, gait training, gait speed, balance training
--- NOTE | 2020-02-28 11:47 | PT.OTN ---
Current Diagnoses Cerebral infarction, unspecified (02/28/20) Muscle weakness (generalized) (02/28/20) Other abnormalities of gait and mobility (02/28/20) Physical Therapy Treatment Note PT-OP-A Visit Information Start: 03/13/19 11:58 Freq: Status: Active Protocol: Document 02/28/20 11:20 DCW (Rec: 02/28/20 11:47 DCW [id number]) Out-Patient Physical Therapy Visit Information Visit Information Visit Type Treatment Note Visit Note 5 min late, then finished early due to extreme fatigue Visit Start Time 11:20 Visit Stop Time 11:45 Total Visit Minutes 25 Visit Number 41 Number of INTERACTIVE MEDIA MARKETING DIRECTOR Visits 0 PT-OP-B Current Condition Start: 03/13/19 11:58 Freq: Status: Active Protocol: Document 03/13/19 11:15 DCW (Rec: 03/13/19 12:27 DCW [id number]) Current Condition History of Current Condition Onset Date Multi-year history Current Complaints Fatigue, weakness, imbalance, decreased gait speed History of Current Condition Pt is a 78 year old female well known to this clinic presenting with what she calls a loss of ground following her last round of physical therapy earlier in the year. Pt has a history of 5 separate CVAs, and feels her largest problem is her very slow gait speed, as well as weakness. Her slow gait speed is a long- standing issue which has previously been addressed at physical therapy, and she has shown some improvement, but typically does not perform a lot of HEP following discharge , and typically then regresses . Pt does note she has been working with a associate trainer in the local pool, and has begun attending gentle yoga classes, as well as a dancing class for people with disabilities. Prior Treatments and Tests Multiple rounds of physical therapy Treatment Goals Patient/Caregiver Goals Improve strengh and gait speed Prior Functional Status Baseline Function- ADL's Needs Assist Baseline Function- Mobility Needs Assist Baseline Function- Gait Very slow gait with bilateral walking sticks PT-OP-C Subjective Start: 03/13/19 11:58 Freq: Status: Active Protocol: Document 02/28/20 11:20 DCW (Rec: 02/28/20 11:47 DCW [id number]) OP-PT Subjective Patient Comments Patient Comments Oh my, I just feel terrible today. I don't know what happens, it's like something just zaps my energy. I just wake up and have no juice. PT-OP-D Balance Start: 03/13/19 11:58 Freq: Status: Active Protocol: Document 01/23/20 16:45 DCW (Rec: 01/23/20 17:16 DCW [id number]) OP-PT Balance Assessment Sitting Balance Static Sitting Balance Ability Good Dynamic Sitting Balance Ability Good Standing Balance Static Standing Balance Ability Fair Dynamic Standing Balance Ability Fair Tinetti Balance Assessment Sitting Balance Sitting Balance Steady, safe Arising from Chair Ability to Arise Able, uses arms to help Attempts to Arise Arises on 1st attempt Standing Balance Immediate Standing Balance Steady with support Standing Balance Narrow stance w/o support Nudged Response Begins to fall Standing with Eyes Closed Steady Turning Step Pattern Turning 360 Degrees Discontinuous steps Stability Turning 360 Degrees Steady Sitting Down Sitting Down Uses arms or unsteady Gait and Step Initiation of Gait No hesitancy Right Foot Step Length Does pass stance foot Right Foot Step Height Completely clears floor Left Foot Step Length Does not pass stance foot Left Foot Step Height Does not clear floor Step Description Step Symmetry Step length not equal Step Continuity Steps appear continuous Gait Description Path Description Straight Trunk Description No sway but posturing Walking Stance Heels apart Scoring and Interpretation Tinetti Composite Score (points) 17 Interpretation of Scores High risk for falls(< 19) Tinetti Impairment Rating from Composite 20 to <40% Impaired (Score 17- Score 22) Vann Fall Scale Copyright Permission PT-OP-E Functional Tests Start: 03/13/19 11:58 Freq: Status: Active Protocol: Document 01/23/20 16:45 DCW (Rec: 01/23/20 17:16 DCW [id number]) Functional Tests 2 Minute Walk Test Distance 102' Device Used Bilateral walking sticks Comments .85 ft/sec Timed Up and Go (TUG) Score 31.64 Comments 3-trial average (32.24, 30.43, 32.24) TUG Impairment Rating 100% Impaired (Score 20) Tinetti Balance and Gait Assessment Balance Score 10 Gait Score 7 Composite Score 17 Balance Score Impairment Rating 20 to <40% Impaired (Score 10- 12) Gait Score Impairment Rating 40 to <60% Impaired (Score 5-7 ) Composite Score Impairment Rating 20 to <40% Impaired (Score 17- 22) PT-OP-M Strength Start: 03/13/19 11:58 Freq: Status: Active Protocol: Document 01/23/20 16:45 DCW (Rec: 01/23/20 17:16 DCW [id number]) Hip Strength Hip Manual Muscle Testing Right Flexion (L2) 4 Good Abduction 4+ Good+ Adduction 4 Good Left Flexion (L2) 4+ Good+ Abduction 4+ Good+ Adduction 4+ Good+ Knee Strength Knee Manual Muscle Testing Right Flexion (S2) 4+ Good+ Extension (L3) 4+ Good+ Left Flexion (S2) 4 Good Extension (L3) 4+ Good+ Ankle/Foot Strength Ankle and Foot Manual Muscle Testing Right Dorsiflexion (L4) 4+ Good+ Plantarflexion (S1) 4 Good Left Dorsiflexion (L4) 4+ Good+ Plantarflexion (S1) 4 Good PT-OP-Q Treatments Start: 03/13/19 11:58 Freq: Status: Active Protocol: Document 02/28/20 11:20 DCW (Rec: 02/28/20 11:47 DCW [id number]) Cardio Equipment Recumbent Elliptical ([email or web address]) Duration (Minutes) 5 Resistance 4 Seat Position 7 Therapeutic Exercises Standing Exercises Toe-taps Standing Exercise Name Toe-taps Equipment Used 6 steps Gait Training Gait Activity Stride length Description Step count over specific distance Device Used Walking sticks Distance/Duration 20' course Comments Pt unable to take more than a shuffling step today, no counting Gait speed training Description 170' x2 Device Used Walking sticks Treatment Focus Increased gait speed, increased stride length Comments 170' time: 170.37 (1.00 ft/ sec); 232.71(0.73 ft/sec). Both attempts used metronome at 80 bpm. PT-OP-T Assessment and Plan Start: 03/13/19 11:58 Freq: Status: Active Protocol: Document 02/28/20 11:20 DCW (Rec: 02/28/20 11:47 DCW [id number]) Physical Therapy Assessment Goals Five Impairment TUG score of 31.64 seconds Group Home Goal (LTG) Pt to score at least 20 seconds on the TUG LTG Duration 03/25/20 Four Impairment Tinetti Short Term Goal (STG) Pt to score at least 20/28 on Tinetti Balance Assessment STG Duration 02/23/20 Billiard Table Assembler Goal (LTG) Pt to score at least 24/28 on Tinetti Balance Assessment LTG Duration 03/25/20 Three Impairment LE MMT Short Term Goal (STG) Pt LE MMT grossly to 4/5 in order to improve balance and activity tolerance STG Duration Met Group Home Goal (LTG) Pt LE MMT grossly to 4+/5 in order to improve balance and activity tolerance LTG Duration 03/25/20 Two Impairment Gait speed of 0.85 ft/sec during two minute walk test Short Term Goal (STG) Pt gait speed to 1.2 ft/sec (2 MWT distance of 144'). STG Duration 02/23/20 Billiard Table Assembler Goal (LTG) Pt gait speed to 1.6 ft/sec (2 MWT distance of 192'). A gait speed of less than 1.97 indicates a greater likelihood of further functional decline in older adults LTG Duration 03/25/20 One Impairment Pt does not have an appropriate home exercise program Short Term Goal (STG) Pt to be independent and compliant with an appropriate HEP STG Duration 02/23/20 Assessment Summary Assessment After a very good day Monday, pt had one of her worst days of therapy today. Her 170' walk took nearly twice the amount of time vs last session , and pt had very poor activity tolerance, eventually needing to just stop her session and go rest in the waiting room.
--- NOTE | 2020-03-04 11:56 | PT.OTN ---
Current Diagnoses Cerebral infarction, unspecified (03/04/20) Muscle weakness (generalized) (03/04/20) Other abnormalities of gait and mobility (03/04/20) Physical Therapy Treatment Note PT-OP-A Visit Information Start: 03/13/19 11:58 Freq: Status: Active Protocol: Document 03/04/20 11:15 DCW (Rec: 03/04/20 11:56 DCW [id number]) Out-Patient Physical Therapy Visit Information Visit Information Visit Type Treatment Note Visit Start Time 11:15 Visit Stop Time 12:00 Total Visit Minutes 45 Visit Number 42 Number of WEIGHER ALLOY Visits 0 PT-OP-B Current Condition Start: 03/13/19 11:58 Freq: Status: Active Protocol: Document 03/13/19 11:15 DCW (Rec: 03/13/19 12:27 DCW [id number]) Current Condition History of Current Condition Onset Date Multi-year history Current Complaints Fatigue, weakness, imbalance, decreased gait speed History of Current Condition Pt is a 78 year old female well known to this clinic presenting with what she calls a loss of ground following her last round of physical therapy earlier in the year. Pt has a history of 5 separate CVAs, and feels her largest problem is her very slow gait speed, as well as weakness. Her slow gait speed is a long- standing issue which has previously been addressed at physical therapy, and she has shown some improvement, but typically does not perform a lot of HEP following discharge , and typically then regresses . Pt does note she has been working with a regional trainer in the local pool, and has begun attending gentle yoga classes, as well as a dancing class for people with disabilities. Prior Treatments and Tests Multiple rounds of physical therapy Treatment Goals Patient/Caregiver Goals Improve strengh and gait speed Prior Functional Status Baseline Function- ADL's Needs Assist Baseline Function- Mobility Needs Assist Baseline Function- Gait Very slow gait with bilateral walking sticks PT-OP-C Subjective Start: 03/13/19 11:58 Freq: Status: Active Protocol: Document 03/04/20 11:15 DCW (Rec: 03/04/20 11:56 DCW [id number]) OP-PT Subjective Patient Comments Patient Comments I'm better, but still very slow. PT-OP-D Balance Start: 03/13/19 11:58 Freq: Status: Active Protocol: Document 01/23/20 16:45 DCW (Rec: 01/23/20 17:16 DCW [id number]) OP-PT Balance Assessment Sitting Balance Static Sitting Balance Ability Good Dynamic Sitting Balance Ability Good Standing Balance Static Standing Balance Ability Fair Dynamic Standing Balance Ability Fair Tinetti Balance Assessment Sitting Balance Sitting Balance Steady, safe Arising from Chair Ability to Arise Able, uses arms to help Attempts to Arise Arises on 1st attempt Standing Balance Immediate Standing Balance Steady with support Standing Balance Narrow stance w/o support Nudged Response Begins to fall Standing with Eyes Closed Steady Turning Step Pattern Turning 360 Degrees Discontinuous steps Stability Turning 360 Degrees Steady Sitting Down Sitting Down Uses arms or unsteady Gait and Step Initiation of Gait No hesitancy Right Foot Step Length Does pass stance foot Right Foot Step Height Completely clears floor Left Foot Step Length Does not pass stance foot Left Foot Step Height Does not clear floor Step Description Step Symmetry Step length not equal Step Continuity Steps appear continuous Gait Description Path Description Straight Trunk Description No sway but posturing Walking Stance Heels apart Scoring and Interpretation Tinetti Composite Score (points) 17 Interpretation of Scores High risk for falls(< 19) Tinetti Impairment Rating from Composite 20 to <40% Impaired (Score 17- Score 22) Vann Fall Scale Copyright Permission PT-OP-E Functional Tests Start: 03/13/19 11:58 Freq: Status: Active Protocol: Document 01/23/20 16:45 DCW (Rec: 01/23/20 17:16 DCW [id number]) Functional Tests 2 Minute Walk Test Distance 102' Device Used Bilateral walking sticks Comments .85 ft/sec Timed Up and Go (TUG) Score 31.64 Comments 3-trial average (32.24, 30.43, 32.24) TUG Impairment Rating 100% Impaired (Score 20) Tinetti Balance and Gait Assessment Balance Score 10 Gait Score 7 Composite Score 17 Balance Score Impairment Rating 20 to <40% Impaired (Score 10- 12) Gait Score Impairment Rating 40 to <60% Impaired (Score 5-7 ) Composite Score Impairment Rating 20 to <40% Impaired (Score 17- 22) PT-OP-M Strength Start: 03/13/19 11:58 Freq: Status: Active Protocol: Document 01/23/20 16:45 DCW (Rec: 01/23/20 17:16 DCW [id number]) Hip Strength Hip Manual Muscle Testing Right Flexion (L2) 4 Good Abduction 4+ Good+ Adduction 4 Good Left Flexion (L2) 4+ Good+ Abduction 4+ Good+ Adduction 4+ Good+ Knee Strength Knee Manual Muscle Testing Right Flexion (S2) 4+ Good+ Extension (L3) 4+ Good+ Left Flexion (S2) 4 Good Extension (L3) 4+ Good+ Ankle/Foot Strength Ankle and Foot Manual Muscle Testing Right Dorsiflexion (L4) 4+ Good+ Plantarflexion (S1) 4 Good Left Dorsiflexion (L4) 4+ Good+ Plantarflexion (S1) 4 Good PT-OP-Q Treatments Start: 03/13/19 11:58 Freq: Status: Active Protocol: Document 03/04/20 11:15 DCW (Rec: 03/04/20 11:56 DCW [id number]) Therapeutic Exercises Standing Exercises Toe-taps Standing Exercise Name Toe-taps Equipment Used 6 steps Hurdles Standing Exercise Name Hurdles Equipment Used // bars Comments Forward Other Exercises Retro Ambulation Other Exercise Name Retro Ambulation Equipment Used // bars Reps/Minutes 4x10' Side-stepping Other Exercise Name Side-stepping at rail Side bilateral Resistance none Reps/Minutes 4x10' Comments cued increased step length and right posture Gait Training Gait Activity Stride length Description Step count over specific distance Device Used Walking sticks Distance/Duration 20' course Comments # of steps: 15->14->13->13->13 ->13 Gait speed training Description 170' x2 Device Used Walking sticks Treatment Focus Increased gait speed, increased stride length Comments 170' time: 214.51 (0.79 ft/ sec); 198.19 (0.863 ft/sec). Both attempts used metronome at 80 bpm. PT-OP-T Assessment and Plan Start: 03/13/19 11:58 Freq: Status: Active Protocol: Document 03/04/20 11:15 DCW (Rec: 03/04/20 11:56 DCW [id number]) Physical Therapy Assessment Goals Five Impairment TUG score of 31.64 seconds Milling/Polishing Operator Goal (LTG) Pt to score at least 20 seconds on the TUG LTG Duration 03/25/20 Four Impairment Tinetti Short Term Goal (STG) Pt to score at least 20/28 on Tinetti Balance Assessment STG Duration 02/23/20 Fpc Goal (LTG) Pt to score at least 24/28 on Tinetti Balance Assessment LTG Duration 03/25/20 Three Impairment LE MMT Short Term Goal (STG) Pt LE MMT grossly to 4/5 in order to improve balance and activity tolerance STG Duration Met Milling/Polishing Operator Goal (LTG) Pt LE MMT grossly to 4+/5 in order to improve balance and activity tolerance LTG Duration 03/25/20 Two Impairment Gait speed of 0.85 ft/sec during two minute walk test Short Term Goal (STG) Pt gait speed to 1.2 ft/sec (2 MWT distance of 144'). STG Duration 02/23/20 Milling/Polishing Operator Goal (LTG) Pt gait speed to 1.6 ft/sec (2 MWT distance of 192'). A gait speed of less than 1.97 indicates a greater likelihood of further functional decline in older adults LTG Duration 03/25/20 One Impairment Pt does not have an appropriate home exercise program Short Term Goal (STG) Pt to be independent and compliant with an appropriate HEP STG Duration 02/23/20 Assessment Summary Assessment Pt still very slow and lethargic, however she was able to tolerate a full session today, so it was at least an improvement from her last visit. Physical Therapy Plan Frequency and Duration Frequency of Treatment 2x/Week Duration of Treatment 10 weeks Plan of Care Start Date 01/23/20 Plan of Care End Date 04/02/20 Therapeutic Interventions Therapeutic Interventions Aquatic Therapy,Balance Training,Home Exercise Program ,Neuromuscular Re-education, Patient/Caregiver Education, Self-Care/Home Management,Soft Tissue Mobilization, Therapeutic Activities, Therapeutic Exercises Next Visit Focus/Plan Next Note Type Treatment Note Next Visit Plan Continue per PT POC: Strengthening, gait training, gait speed, balance training
--- NOTE | 2020-03-06 11:59 | PT.OTN ---
Current Diagnoses Cerebral infarction, unspecified (03/06/20) Muscle weakness (generalized) (03/06/20) Other abnormalities of gait and mobility (03/06/20) Physical Therapy Treatment Note PT-OP-A Visit Information Start: 03/13/19 11:58 Freq: Status: Active Protocol: Document 03/06/20 11:15 DCW (Rec: 03/06/20 11:55 DCW [id number]) Out-Patient Physical Therapy Visit Information Visit Information Visit Type Treatment Note Visit Start Time 11:15 Visit Stop Time 12:00 Total Visit Minutes 45 Visit Number 43 Number of HEAD GIRLS GOLF COACH Visits 0 PT-OP-B Current Condition Start: 03/13/19 11:58 Freq: Status: Active Protocol: Document 03/13/19 11:15 DCW (Rec: 03/13/19 12:27 DCW [id number]) Current Condition History of Current Condition Onset Date Multi-year history Current Complaints Fatigue, weakness, imbalance, decreased gait speed History of Current Condition Pt is a 78 year old female well known to this clinic presenting with what she calls a loss of ground following her last round of physical therapy earlier in the year. Pt has a history of 5 separate CVAs, and feels her largest problem is her very slow gait speed, as well as weakness. Her slow gait speed is a long- standing issue which has previously been addressed at physical therapy, and she has shown some improvement, but typically does not perform a lot of HEP following discharge , and typically then regresses . 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 Prior Treatments and Tests Multiple rounds of physical therapy Treatment Goals Patient/Caregiver Goals Improve strengh and gait speed Prior Functional Status Baseline Function- ADL's Needs Assist Baseline Function- Mobility Needs Assist Baseline Function- Gait Very slow gait with bilateral walking sticks PT-OP-C Subjective Start: 03/13/19 11:58 Freq: Status: Active Protocol: Document 03/06/20 11:15 DCW (Rec: 03/06/20 11:55 DCW [id number]) OP-PT Subjective Patient Comments Patient Comments I'm doing okay today. I almost choked on my cereal this morning, though. PT-OP-D Balance Start: 03/13/19 11:58 Freq: Status: Active Protocol: Document 01/23/20 16:45 DCW (Rec: 01/23/20 17:16 DCW [id number]) OP-PT Balance Assessment Sitting Balance Static Sitting Balance Ability Good Dynamic Sitting Balance Ability Good Standing Balance Static Standing Balance Ability Fair Dynamic Standing Balance Ability Fair Tinetti Balance Assessment Sitting Balance Sitting Balance Steady, safe Arising from Chair Ability to Arise Able, uses arms to help Attempts to Arise Arises on 1st attempt Standing Balance Immediate Standing Balance Steady with support Standing Balance Narrow stance w/o support Nudged Response Begins to fall Standing with Eyes Closed Steady Turning Step Pattern Turning 360 Degrees Discontinuous steps Stability Turning 360 Degrees Steady Sitting Down Sitting Down Uses arms or unsteady Gait and Step Initiation of Gait No hesitancy Right Foot Step Length Does pass stance foot Right Foot Step Height Completely clears floor Left Foot Step Length Does not pass stance foot Left Foot Step Height Does not clear floor Step Description Step Symmetry Step length not equal Step Continuity Steps appear continuous Gait Description Path Description Straight Trunk Description No sway but posturing Walking Stance Heels apart Scoring and Interpretation Tinetti Composite Score (points) 17 Interpretation of Scores High risk for falls(< 19) Tinetti Impairment Rating from Composite 20 to <40% Impaired (Score 17- Score 22) Vann Fall Scale Copyright Permission PT-OP-E Functional Tests Start: 03/13/19 11:58 Freq: Status: Active Protocol: Document 01/23/20 16:45 DCW (Rec: 01/23/20 17:16 DCW [id number]) Functional Tests 2 Minute Walk Test Distance 102' Device Used Bilateral walking sticks Comments .85 ft/sec Timed Up and Go (TUG) Score 31.64 Comments 3-trial average (32.24, 30.43, 32.24) TUG Impairment Rating 100% Impaired (Score 20) Tinetti Balance and Gait Assessment Balance Score 10 Gait Score 7 Composite Score 17 Balance Score Impairment Rating 20 to <40% Impaired (Score 10- 12) Gait Score Impairment Rating 40 to <60% Impaired (Score 5-7 ) Composite Score Impairment Rating 20 to <40% Impaired (Score 17- 22) PT-OP-M Strength Start: 03/13/19 11:58 Freq: Status: Active Protocol: Document 01/23/20 16:45 DCW (Rec: 01/23/20 17:16 DCW [id number]) Hip Strength Hip Manual Muscle Testing Right Flexion (L2) 4 Good Abduction 4+ Good+ Adduction 4 Good Left Flexion (L2) 4+ Good+ Abduction 4+ Good+ Adduction 4+ Good+ Knee Strength Knee Manual Muscle Testing Right Flexion (S2) 4+ Good+ Extension (L3) 4+ Good+ Left Flexion (S2) 4 Good Extension (L3) 4+ Good+ Ankle/Foot Strength Ankle and Foot Manual Muscle Testing Right Dorsiflexion (L4) 4+ Good+ Plantarflexion (S1) 4 Good Left Dorsiflexion (L4) 4+ Good+ Plantarflexion (S1) 4 Good PT-OP-Q Treatments Start: 03/13/19 11:58 Freq: Status: Active Protocol: Document 03/06/20 11:15 DCW (Rec: 03/06/20 11:55 DCW [id number]) Cardio Equipment Recumbent Elliptical (BiodBanno) Duration (Minutes) 5 Resistance 3 Seat Position 9 Therapeutic Exercises Other Exercises Retro Ambulation Other Exercise Name Retro Ambulation Equipment Used // bars Reps/Minutes 4x10' Side-stepping Other Exercise Name Side-stepping at rail Side bilateral Resistance none Reps/Minutes 4x10' Comments cued increased step length and right posture sit<->stand Other Exercise Name StS training with UE assist on chair Equipment Used standard height chair Reps/Minutes x10 Comments cues for feet under knees and hip hinge forward pushing off seat Gait Training Gait Activity Stride length Description Step count over specific distance Device Used Walking sticks Distance/Duration 20' course Comments # of steps: 12->11->11->12->12 ->12 Gait speed training Description 170' x2 Device Used Walking sticks Treatment Focus Increased gait speed, increased stride length Comments 170' time: 137.24 (1.23 ft/ sec); 144.18 (1.18 ft/sec). Both attempts used metronome at 80 bpm. PT-OP-T Assessment and Plan Start: 03/13/19 11:58 Freq: Status: Active Protocol: Document 03/06/20 11:15 DCW (Rec: 03/06/20 11:55 DCW [id number]) Physical Therapy Assessment Goals Five Impairment TUG score of 31.64 seconds Custodial Goal (LTG) Pt to score at least 20 seconds on the TUG LTG Duration 03/25/20 Four Impairment Tinetti Short Term Goal (STG) Pt to score at least 20/28 on Tinetti Balance Assessment STG Duration 02/23/20 Custodial Goal (LTG) Pt to score at least 24/28 on Tinetti Balance Assessment LTG Duration 03/25/20 Three Impairment LE MMT Short Term Goal (STG) Pt LE MMT grossly to 4/5 in order to improve balance and activity tolerance STG Duration Met Custodial Goal (LTG) Pt LE MMT grossly to 4+/5 in order to improve balance and activity tolerance LTG Duration 03/25/20 Two Impairment Gait speed of 0.85 ft/sec during two minute walk test Short Term Goal (STG) Pt gait speed to 1.2 ft/sec (2 MWT distance of 144'). STG Duration 02/23/20 Hemp Fiber Taker Off Goal (LTG) Pt gait speed to 1.6 ft/sec (2 MWT distance of 192'). A gait speed of less than 1.97 indicates a greater likelihood of further functional decline in older adults LTG Duration 03/25/20 One Impairment Pt does not have an appropriate home exercise program Short Term Goal (STG) Pt to be independent and compliant with an appropriate HEP STG Duration 02/23/20 Assessment Summary Assessment Pt did much better today than she has been the past few weeks. Much faster gait speed with an improved stride length . Pt admitted she got up earlier than usual this morning, so she had more time to wake up before coming to therapy. Physical Therapy Plan Frequency and Duration Frequency of Treatment 2x/Week Duration of Treatment 10 weeks Plan of Care Start Date 01/23/20 Plan of Care End Date 04/02/20 Therapeutic Interventions Therapeutic Interventions Aquatic Therapy,Balance Training,Home Exercise Program ,Neuromuscular Re-education, Patient/Caregiver Education, Self-Care/Home Management,Soft Tissue Mobilization, Therapeutic Activities, Therapeutic Exercises Next Visit Focus/Plan Next Note Type Treatment Note Next Visit Plan Continue per PT POC: Strengthening, gait training, gait speed, balance training
--- NOTE | 2020-03-16 10:27 | PT.OTN ---
Current Diagnoses Cerebral infarction, unspecified (03/16/20) Muscle weakness (generalized) (03/16/20) Other abnormalities of gait and mobility (03/16/20) Physical Therapy Treatment Note PT-OP-A Visit Information Start: 03/13/19 11:58 Freq: Status: Active Protocol: Document 03/16/20 09:45 DCW (Rec: 03/16/20 10:27 DCW [id number]) Out-Patient Physical Therapy Visit Information Visit Information Visit Type Treatment Note Visit Start Time 09:45 Visit Stop Time 10:30 Total Visit Minutes 45 Visit Number 44 Number of WATER TREATMENT PLANT ENGINEER Visits 0 PT-OP-B Current Condition Start: 03/13/19 11:58 Freq: Status: Active Protocol: Document 03/13/19 11:15 DCW (Rec: 03/13/19 12:27 DCW [id number]) Current Condition History of Current Condition Onset Date Multi-year history Current Complaints Fatigue, weakness, imbalance, decreased gait speed History of Current Condition Pt is a 78 year old female well known to this clinic presenting with what she calls a loss of ground following her last round of physical therapy earlier in the year. Pt has a history of 5 separate CVAs, and feels her largest problem is her very slow gait speed, as well as weakness. Her slow gait speed is a long- standing issue which has previously been addressed at physical therapy, and she has shown some improvement, but typically does not perform a lot of HEP following discharge , and typically then regresses . 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 Prior Treatments and Tests Multiple rounds of physical therapy Treatment Goals Patient/Caregiver Goals Improve strengh and gait speed Prior Functional Status Baseline Function- ADL's Needs Assist Baseline Function- Mobility Needs Assist Baseline Function- Gait Very slow gait with bilateral walking sticks PT-OP-C Subjective Start: 03/13/19 11:58 Freq: Status: Active Protocol: Document 03/16/20 09:45 DCW (Rec: 03/16/20 10:27 DCW [id number]) OP-PT Subjective Patient Comments Patient Comments I'm very weak today. I was celebrating my birthday last night, so I had a glass of wine. I a;ways feel like this if I drink wine the night before, I just wasn't thinking about therapy. PT-OP-D Balance Start: 03/13/19 11:58 Freq: Status: Active Protocol: Document 01/23/20 16:45 DCW (Rec: 01/23/20 17:16 DCW [id number]) OP-PT Balance Assessment Sitting Balance Static Sitting Balance Ability Good Dynamic Sitting Balance Ability Good Standing Balance Static Standing Balance Ability Fair Dynamic Standing Balance Ability Fair Tinetti Balance Assessment Sitting Balance Sitting Balance Steady, safe Arising from Chair Ability to Arise Able, uses arms to help Attempts to Arise Arises on 1st attempt Standing Balance Immediate Standing Balance Steady with support Standing Balance Narrow stance w/o support Nudged Response Begins to fall Standing with Eyes Closed Steady Turning Step Pattern Turning 360 Degrees Discontinuous steps Stability Turning 360 Degrees Steady Sitting Down Sitting Down Uses arms or unsteady Gait and Step Initiation of Gait No hesitancy Right Foot Step Length Does pass stance foot Right Foot Step Height Completely clears floor Left Foot Step Length Does not pass stance foot Left Foot Step Height Does not clear floor Step Description Step Symmetry Step length not equal Step Continuity Steps appear continuous Gait Description Path Description Straight Trunk Description No sway but posturing Walking Stance Heels apart Scoring and Interpretation Tinetti Composite Score (points) 17 Interpretation of Scores High risk for falls(< 19) Tinetti Impairment Rating from Composite 20 to <40% Impaired (Score 17- Score 22) Vann Fall Scale Copyright Permission PT-OP-E Functional Tests Start: 03/13/19 11:58 Freq: Status: Active Protocol: Document 01/23/20 16:45 DCW (Rec: 01/23/20 17:16 DCW [id number]) Functional Tests 2 Minute Walk Test Distance 102' Device Used Bilateral walking sticks Comments .85 ft/sec Timed Up and Go (TUG) Score 31.64 Comments 3-trial average (32.24, 30.43, 32.24) TUG Impairment Rating 100% Impaired (Score 20) Tinetti Balance and Gait Assessment Balance Score 10 Gait Score 7 Composite Score 17 Balance Score Impairment Rating 20 to <40% Impaired (Score 10- 12) Gait Score Impairment Rating 40 to <60% Impaired (Score 5-7 ) Composite Score Impairment Rating 20 to <40% Impaired (Score 17- 22) PT-OP-M Strength Start: 03/13/19 11:58 Freq: Status: Active Protocol: Document 01/23/20 16:45 DCW (Rec: 01/23/20 17:16 DCW [id number]) Hip Strength Hip Manual Muscle Testing Right Flexion (L2) 4 Good Abduction 4+ Good+ Adduction 4 Good Left Flexion (L2) 4+ Good+ Abduction 4+ Good+ Adduction 4+ Good+ Knee Strength Knee Manual Muscle Testing Right Flexion (S2) 4+ Good+ Extension (L3) 4+ Good+ Left Flexion (S2) 4 Good Extension (L3) 4+ Good+ Ankle/Foot Strength Ankle and Foot Manual Muscle Testing Right Dorsiflexion (L4) 4+ Good+ Plantarflexion (S1) 4 Good Left Dorsiflexion (L4) 4+ Good+ Plantarflexion (S1) 4 Good PT-OP-Q Treatments Start: 03/13/19 11:58 Freq: Status: Active Protocol: Document 03/16/20 09:45 DCW (Rec: 03/16/20 10:27 DCW [id number]) Cardio Equipment Recumbent Elliptical (BiodRSB SPINE) Duration (Minutes) 5 Resistance 3 Seat Position 9 Gym Equipment Shuttle Balance Blue Details Wide EMELY (EO/EC), Staggered Stance Therapeutic Exercises Other Exercises Retro Ambulation Other Exercise Name Retro Ambulation Equipment Used // bars Reps/Minutes 4x10' Side-stepping Other Exercise Name Side-stepping at rail Side bilateral Resistance none Reps/Minutes 4x10' Comments cued increased step length and right posture Gait Training Gait Activity Stride length Description Step count over specific distance Device Used Walking sticks Distance/Duration 20' course Comments # of steps: 13->13->12->12->12 ->13 PT-OP-T Assessment and Plan Start: 03/13/19 11:58 Freq: Status: Active Protocol: Document 03/16/20 09:45 DCW (Rec: 03/16/20 10:27 DCW [id number]) Physical Therapy Assessment Goals Five Impairment TUG score of 31.64 seconds Half-Way Goal (LTG) Pt to score at least 20 seconds on the TUG LTG Duration 03/25/20 Four Impairment Tinetti Short Term Goal (STG) Pt to score at least 20/28 on Tinetti Balance Assessment STG Duration 02/23/20 Half-Way Goal (LTG) Pt to score at least 24/28 on Tinetti Balance Assessment LTG Duration 03/25/20 Three Impairment LE MMT Short Term Goal (STG) Pt LE MMT grossly to 4/5 in order to improve balance and activity tolerance STG Duration Met Half-Way Goal (LTG) Pt LE MMT grossly to 4+/5 in order to improve balance and activity tolerance LTG Duration 03/25/20 Two Impairment Gait speed of 0.85 ft/sec during two minute walk test Short Term Goal (STG) Pt gait speed to 1.2 ft/sec (2 MWT distance of 144'). STG Duration 02/23/20 Heater Tender Goal (LTG) Pt gait speed to 1.6 ft/sec (2 MWT distance of 192'). A gait speed of less than 1.97 indicates a greater likelihood of further functional decline in older adults LTG Duration 03/25/20 One Impairment Pt does not have an appropriate home exercise program Short Term Goal (STG) Pt to be independent and compliant with an appropriate HEP STG Duration 02/23/20 Assessment Summary Assessment Pt's progress continues to vary wildly between appointments, with seemingly no correlation to any activity . Difficult to track any progress due to these variations. Physical Therapy Plan Frequency and Duration Frequency of Treatment 2x/Week Duration of Treatment 10 weeks Plan of Care Start Date 01/23/20 Plan of Care End Date 04/02/20 Therapeutic Interventions Therapeutic Interventions Aquatic Therapy,Balance Training,Home Exercise Program ,Neuromuscular Re-education, Patient/Caregiver Education, Self-Care/Home Management,Soft Tissue Mobilization, Therapeutic Activities, Therapeutic Exercises Next Visit Focus/Plan Next Note Type Treatment Note Next Visit Plan Continue per PT POC: Strengthening, gait training, gait speed, balance training
--- NOTE | 2020-03-19 10:31 | PT.OTN ---
Current Diagnoses Cerebral infarction, unspecified (03/19/20) Muscle weakness (generalized) (03/19/20) Other abnormalities of gait and mobility (03/19/20) Physical Therapy Treatment Note PT-OP-A Visit Information Start: 03/13/19 11:58 Freq: Status: Active Protocol: Document 03/19/20 09:50 DCW (Rec: 03/19/20 10:30 DCW [id number]) Out-Patient Physical Therapy Visit Information Visit Information Visit Type Treatment Note Visit Note 5 min late Visit Start Time 09:50 Visit Stop Time 10:30 Total Visit Minutes 40 Visit Number 45 Number of DEPENDENCY COUNSELOR Visits 0 PT-OP-B Current Condition Start: 03/13/19 11:58 Freq: Status: Active Protocol: Document 03/13/19 11:15 DCW (Rec: 03/13/19 12:27 DCW [id number]) Current Condition History of Current Condition Onset Date Multi-year history Current Complaints Fatigue, weakness, imbalance, decreased gait speed History of Current Condition Pt is a 78 year old female well known to this clinic presenting with what she calls a loss of ground following her last round of physical therapy earlier in the year. Pt has a history of 5 separate CVAs, and feels her largest problem is her very slow gait speed, as well as weakness. Her slow gait speed is a long- standing issue which has previously been addressed at physical therapy, and she has shown some improvement, but typically does not perform a lot of HEP following discharge , and typically then regresses . 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 Prior Treatments and Tests Multiple rounds of physical therapy Treatment Goals Patient/Caregiver Goals Improve strengh and gait speed Prior Functional Status Baseline Function- ADL's Needs Assist Baseline Function- Mobility Needs Assist Baseline Function- Gait Very slow gait with bilateral walking sticks PT-OP-C Subjective Start: 03/13/19 11:58 Freq: Status: Active Protocol: Document 03/19/20 09:50 DCW (Rec: 03/19/20 10:30 DCW [id number]) OP-PT Subjective Patient Comments Patient Comments Pt notes she is moving very slowly today, feels incredibly fatigued. PT-OP-D Balance Start: 03/13/19 11:58 Freq: Status: Active Protocol: Document 01/23/20 16:45 DCW (Rec: 01/23/20 17:16 DCW [id number]) OP-PT Balance Assessment Sitting Balance Static Sitting Balance Ability Good Dynamic Sitting Balance Ability Good Standing Balance Static Standing Balance Ability Fair Dynamic Standing Balance Ability Fair Tinetti Balance Assessment Sitting Balance Sitting Balance Steady, safe Arising from Chair Ability to Arise Able, uses arms to help Attempts to Arise Arises on 1st attempt Standing Balance Immediate Standing Balance Steady with support Standing Balance Narrow stance w/o support Nudged Response Begins to fall Standing with Eyes Closed Steady Turning Step Pattern Turning 360 Degrees Discontinuous steps Stability Turning 360 Degrees Steady Sitting Down Sitting Down Uses arms or unsteady Gait and Step Initiation of Gait No hesitancy Right Foot Step Length Does pass stance foot Right Foot Step Height Completely clears floor Left Foot Step Length Does not pass stance foot Left Foot Step Height Does not clear floor Step Description Step Symmetry Step length not equal Step Continuity Steps appear continuous Gait Description Path Description Straight Trunk Description No sway but posturing Walking Stance Heels apart Scoring and Interpretation Tinetti Composite Score (points) 17 Interpretation of Scores High risk for falls(< 19) Tinetti Impairment Rating from Composite 20 to <40% Impaired (Score 17- Score 22) Vann Fall Scale Copyright Permission PT-OP-E Functional Tests Start: 03/13/19 11:58 Freq: Status: Active Protocol: Document 01/23/20 16:45 DCW (Rec: 01/23/20 17:16 DCW [id number]) Functional Tests 2 Minute Walk Test Distance 102' Device Used Bilateral walking sticks Comments .85 ft/sec Timed Up and Go (TUG) Score 31.64 Comments 3-trial average (32.24, 30.43, 32.24) TUG Impairment Rating 100% Impaired (Score 20) Tinetti Balance and Gait Assessment Balance Score 10 Gait Score 7 Composite Score 17 Balance Score Impairment Rating 20 to <40% Impaired (Score 10- 12) Gait Score Impairment Rating 40 to <60% Impaired (Score 5-7 ) Composite Score Impairment Rating 20 to <40% Impaired (Score 17- 22) PT-OP-M Strength Start: 03/13/19 11:58 Freq: Status: Active Protocol: Document 01/23/20 16:45 DCW (Rec: 01/23/20 17:16 DCW [id number]) Hip Strength Hip Manual Muscle Testing Right Flexion (L2) 4 Good Abduction 4+ Good+ Adduction 4 Good Left Flexion (L2) 4+ Good+ Abduction 4+ Good+ Adduction 4+ Good+ Knee Strength Knee Manual Muscle Testing Right Flexion (S2) 4+ Good+ Extension (L3) 4+ Good+ Left Flexion (S2) 4 Good Extension (L3) 4+ Good+ Ankle/Foot Strength Ankle and Foot Manual Muscle Testing Right Dorsiflexion (L4) 4+ Good+ Plantarflexion (S1) 4 Good Left Dorsiflexion (L4) 4+ Good+ Plantarflexion (S1) 4 Good PT-OP-Q Treatments Start: 03/13/19 11:58 Freq: Status: Active Protocol: Document 03/19/20 09:50 DCW (Rec: 03/19/20 10:30 DCW [id number]) Cardio Equipment Recumbent Elliptical ([employer]) Duration (Minutes) 5 Resistance 3 Seat Position 9 Therapeutic Exercises Other Exercises Retro Ambulation Other Exercise Name Retro Ambulation Equipment Used // bars Reps/Minutes 4x10' Side-stepping Other Exercise Name Side-stepping at rail Side bilateral Resistance none Reps/Minutes 4x10' Comments cued increased step length and right posture sit<->stand Other Exercise Name StS training with UE assist on chair Equipment Used standard height chair Reps/Minutes x10 Comments cues for feet under knees and hip hinge forward pushing off seat Gait Training Gait Activity Stride length Description Step count over specific distance Device Used Walking sticks Distance/Duration 20' course Comments # of steps: 14->12->12->12->12 ->12 Gait speed training Description 170' x1 Device Used Walking sticks Treatment Focus Increased gait speed, increased stride length Comments 170' time: 233.03 (0.73 ft/ sec); used metronome at 80 bpm . PT-OP-T Assessment and Plan Start: 03/13/19 11:58 Freq: Status: Active Protocol: Document 03/19/20 09:50 DCW (Rec: 03/19/20 10:30 DCW [id number]) Physical Therapy Assessment Goals Five Impairment TUG score of 31.64 seconds Marine Drafter Goal (LTG) Pt to score at least 20 seconds on the TUG LTG Duration 03/25/20 Four Impairment Tinetti Short Term Goal (STG) Pt to score at least 20/28 on Tinetti Balance Assessment STG Duration 02/23/20 Marine Drafter Goal (LTG) Pt to score at least 24/28 on Tinetti Balance Assessment LTG Duration 03/25/20 Three Impairment LE MMT Short Term Goal (STG) Pt LE MMT grossly to 4/5 in order to improve balance and activity tolerance STG Duration Met Half-Way Goal (LTG) Pt LE MMT grossly to 4+/5 in order to improve balance and activity tolerance LTG Duration 03/25/20 Two Impairment Gait speed of 0.85 ft/sec during two minute walk test Short Term Goal (STG) Pt gait speed to 1.2 ft/sec (2 MWT distance of 144'). STG Duration 02/23/20 Marine Drafter Goal (LTG) Pt gait speed to 1.6 ft/sec (2 MWT distance of 192'). A gait speed of less than 1.97 indicates a greater likelihood of further functional decline in older adults LTG Duration 03/25/20 One Impairment Pt does not have an appropriate home exercise program Short Term Goal (STG) Pt to be independent and compliant with an appropriate HEP STG Duration 02/23/20 Assessment Summary Assessment Pt again performed pretty poorly today, did admit to being up at [employer] [employer] yesterday for her birthday, may be the cause of today's fatigue. Physical Therapy Plan Frequency and Duration Frequency of Treatment 2x/Week Duration of Treatment 10 weeks Plan of Care Start Date 01/23/20 Plan of Care End Date 04/02/20 Therapeutic Interventions Therapeutic Interventions Aquatic Therapy,Balance Training,Home Exercise Program ,Neuromuscular Re-education, Patient/Caregiver Education, Self-Care/Home Management,Soft Tissue Mobilization, Therapeutic Activities, Therapeutic Exercises Next Visit Focus/Plan Next Note Type Treatment Note Next Visit Plan Continue per PT POC: Strengthening, gait training, gait speed, balance training
--- NOTE | 2020-04-09 17:40 | PT.OTN ---
Current Diagnoses Cerebral infarction, unspecified (03/19/20) Muscle weakness (generalized) (03/19/20) Other abnormalities of gait and mobility (03/19/20) Physical Therapy Treatment Note PT-OP-A Visit Information Start: 03/13/19 11:58 Freq: Status: Active Protocol: Document 04/09/20 16:45 DCW (Rec: 04/09/20 17:40 DCW [id number]) Out-Patient Physical Therapy Visit Information Visit Information Visit Type Progress Note Visit Start Time 16:45 Visit Stop Time 17:30 Total Visit Minutes 45 Visit Number 46 Number of HOSPICE NURSE Visits 0 Evaluation Information Evaluation Date 03/13/19 PT-OP-B Current Condition Start: 03/13/19 11:58 Freq: Status: Active Protocol: Document 03/13/19 11:15 DCW (Rec: 03/13/19 12:27 DCW [id number]) Current Condition History of Current Condition Onset Date Multi-year history Current Complaints Fatigue, weakness, imbalance, decreased gait speed History of Current Condition Pt is a 78 year old female well known to this clinic presenting with what she calls a loss of ground following her last round of physical therapy earlier in the year. Pt has a history of 5 separate CVAs, and feels her largest problem is her very slow gait speed, as well as weakness. Her slow gait speed is a long- standing issue which has previously been addressed at physical therapy, and she has shown some improvement, but typically does not perform a lot of HEP following discharge , and typically then regresses . 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 Prior Treatments and Tests Multiple rounds of physical therapy Treatment Goals Patient/Caregiver Goals Improve strengh and gait speed Prior Functional Status Baseline Function- ADL's Needs Assist Baseline Function- Mobility Needs Assist Baseline Function- Gait Very slow gait with bilateral walking sticks PT-OP-C Subjective Start: 03/13/19 11:58 Freq: Status: Active Protocol: Document 04/09/20 16:45 DCW (Rec: 04/09/20 17:40 DCW [id number]) OP-PT Subjective Patient Comments Patient Comments Pt reports she has missed the last few weeks because she couldn't get on the schedule, but I'm back again, and I'm on through April. PT-OP-D Balance Start: 03/13/19 11:58 Freq: Status: Active Protocol: Document 04/09/20 16:45 DCW (Rec: 04/09/20 17:20 DCW [id number]) OP-PT Balance Assessment Sitting Balance Static Sitting Balance Ability Good Dynamic Sitting Balance Ability Good Standing Balance Static Standing Balance Ability Good Dynamic Standing Balance Ability Fair Tinetti Balance Assessment Sitting Balance Sitting Balance Steady, safe Arising from Chair Ability to Arise Able, uses arms to help Attempts to Arise Arises on 1st attempt Standing Balance Immediate Standing Balance Steady with support Standing Balance Narrow stance w/o support Nudged Response Steady Standing with Eyes Closed Steady Turning Step Pattern Turning 360 Degrees Discontinuous steps Stability Turning 360 Degrees Steady Sitting Down Sitting Down Uses arms or unsteady Gait and Step Initiation of Gait No hesitancy Right Foot Step Length Does pass stance foot Right Foot Step Height Completely clears floor Left Foot Step Length Does pass stance foot Left Foot Step Height Completely clears floor Step Description Step Symmetry Step length not equal Step Continuity Stopping or discontinuity Gait Description Path Description Straight Trunk Description No sway but posturing Walking Stance Heels together Scoring and Interpretation Tinetti Composite Score (points) 21 Interpretation of Scores At risk for falls (19-24) Tinetti Impairment Rating from Composite 20 to <40% Impaired (Score 17- Score 22) Vann Fall Scale Copyright Permission PT-OP-E Functional Tests Start: 03/13/19 11:58 Freq: Status: Active Protocol: Document 04/09/20 16:45 DCW (Rec: 04/09/20 17:20 DCW [id number]) Functional Tests 2 Minute Walk Test Distance 131' Device Used Bilateral walking sticks Comments 1.09 ft/sec Timed Up and Go (TUG) Score 25.3 Comments 3-trial average (22.65, 25.52, 27.74) TUG Impairment Rating 100% Impaired (Score 20) Tinetti Balance and Gait Assessment Balance Score 12/16 Gait Score 9/12 Composite Score 21/28 Balance Score Impairment Rating 20 to <40% Impaired (Score 10- 12) Gait Score Impairment Rating 20 to <40% Impaired (Score 8-9 ) Composite Score Impairment Rating 20 to <40% Impaired (Score 17- 22) PT-OP-M Strength Start: 03/13/19 11:58 Freq: Status: Active Protocol: Document 04/09/20 16:45 DCW (Rec: 04/09/20 17:20 DCW [id number]) Hip Strength Hip Manual Muscle Testing Right Flexion (L2) 4 Good Abduction 4+ Good+ Adduction 4 Good Left Flexion (L2) 4+ Good+ Abduction 4+ Good+ Adduction 4+ Good+ Knee Strength Knee Manual Muscle Testing Right Flexion (S2) 4+ Good+ Extension (L3) 4+ Good+ Left Flexion (S2) 4 Good Extension (L3) 4+ Good+ Ankle/Foot Strength Ankle and Foot Manual Muscle Testing Right Dorsiflexion (L4) 4+ Good+ Plantarflexion (S1) 4 Good Left Dorsiflexion (L4) 4+ Good+ Plantarflexion (S1) 4 Good PT-OP-Q Treatments Start: 03/13/19 11:58 Freq: Status: Active Protocol: Document 04/09/20 16:45 DCW (Rec: 04/09/20 17:40 DCW [id number]) Cardio Equipment Recumbent Elliptical ([employer]) Duration (Minutes) 5 Resistance 3 Seat Position 9 Gait Training Gait Activity Gait speed training Description 170' x1 Device Used Walking sticks Treatment Focus Increased gait speed, increased stride length Comments 170' time: 152.98 (1.11 ft/ sec); used metronome at 80 bpm . PT-OP-T Assessment and Plan Start: 03/13/19 11:58 Freq: Status: Active Protocol: Document 04/09/20 16:45 DCW (Rec: 04/09/20 17:40 DCW [id number]) Physical Therapy Assessment Goals Five Impairment TUG score of 31.64 seconds Usp Goal (LTG) Pt to score at least 20 seconds on the TUG LTG Duration 07/09/20 - Improving (25.3 sec ) Four Impairment Tinetti Short Term Goal (STG) Pt to score at least 20/28 on Tinetti Balance Assessment STG Duration Met Usp Goal (LTG) Pt to score at least 24/28 on Tinetti Balance Assessment LTG Duration 07/09/20 Three Impairment LE MMT Short Term Goal (STG) Pt LE MMT grossly to 4/5 in order to improve balance and activity tolerance STG Duration Met Usp Goal (LTG) Pt LE MMT grossly to 4+/5 in order to improve balance and activity tolerance LTG Duration 07/09/20 Two Impairment Gait speed of 0.85 ft/sec during two minute walk test Short Term Goal (STG) Pt gait speed to 1.2 ft/sec (2 MWT distance of 144'). STG Duration 05/28/20 - Improving (1.09 ft/ sec) Toll Operator Goal (LTG) Pt gait speed to 1.6 ft/sec (2 MWT distance of 192'). A gait speed of less than 1.97 indicates a greater likelihood of further functional decline in older adults LTG Duration 07/09/20 One Impairment Pt does not have an appropriate home exercise program Short Term Goal (STG) Pt to be independent and compliant with an appropriate HEP STG Duration 05/28/20 - Compliance improving Assessment Summary Assessment Pt had a much better day today compared to her recent PT sessions. Improved gait speed. TUG, 2 MWT, and Tinetti all showing improvement (by 6.34 sec, 29', and 4 points, respectively) since first session back following lockdown. Continued therapy indicated to continue to improve pt's gait speed, balance, and quality of movement. Physical Therapy Plan Frequency and Duration Frequency of Treatment 2x/Week Duration of Treatment 3 months Plan of Care Start Date 04/09/20 Plan of Care End Date 07/09/20 Therapeutic Interventions Therapeutic Interventions Aquatic Therapy,Balance Training,Home Exercise Program ,Neuromuscular Re-education, Patient/Caregiver Education, Self-Care/Home Management,Soft Tissue Mobilization, Therapeutic Activities, Therapeutic Exercises Next Visit Focus/Plan Next Note Type Treatment Note Next Visit Plan Continue per PT POC: Strengthening, gait training, gait speed, balance training
--- NOTE | 2020-04-09 17:40 | PT.OPPOC ---
Physical, Occupational & Speech Therapy At [facility] Current Diagnoses Cerebral infarction, unspecified (03/19/20) Muscle weakness (generalized) (03/19/20) Other abnormalities of gait and mobility (03/19/20) Visit Care Team Role Provider Type Conchita Felipe PA-C Attending Provider Advanced Director Transportation Primary Care Provider Specialty: Internal Medicine Address: [address] [place] [address], [facility] Email: [email or web address] Plan Of Care PT-OP-T Assessment and Plan Start: 03/13/19 11:58 Freq: Status: Active Protocol: Document 04/09/20 16:45 DCW (Rec: 04/09/20 17:40 DCW [id number]) Physical Therapy Assessment Goals Five Impairment TUG score of 31.64 seconds Snf Goal (LTG) Pt to score at least 20 seconds on the TUG LTG Duration 07/09/20 - Improving (25.3 sec ) Four Impairment Tinetti Short Term Goal (STG) Pt to score at least 20/28 on Tinetti Balance Assessment STG Duration Met Snf Goal (LTG) Pt to score at least 24/28 on Tinetti Balance Assessment LTG Duration 07/09/20 Three Impairment LE MMT Short Term Goal (STG) Pt LE MMT grossly to 4/5 in order to improve balance and activity tolerance STG Duration Met Snf Goal (LTG) Pt LE MMT grossly to 4+/5 in order to improve balance and activity tolerance LTG Duration 07/09/20 Two Impairment Gait speed of 0.85 ft/sec during two minute walk test Short Term Goal (STG) Pt gait speed to 1.2 ft/sec (2 MWT distance of 144'). STG Duration 05/28/20 - Improving (1.09 ft/ sec) Snf Goal (LTG) Pt gait speed to 1.6 ft/sec (2 MWT distance of 192'). A gait speed of less than 1.97 indicates a greater likelihood of further functional decline in older adults LTG Duration 07/09/20 One Impairment Pt does not have an appropriate home exercise program Short Term Goal (STG) Pt to be independent and compliant with an appropriate HEP STG Duration 05/28/20 - Compliance improving Assessment Summary Assessment Pt had a much better day today compared to her recent PT sessions. Improved gait speed. TUG, 2 MWT, and Tinetti all showing improvement (by 6.34 sec, 29', and 4 points, respectively) since first session back following lockdown. Continued therapy indicated to continue to improve pt's gait speed, balance, and quality of movement. Physical Therapy Plan Frequency and Duration Frequency of Treatment 2x/Week Duration of Treatment 3 months Plan of Care Start Date 04/09/20 Plan of Care End Date 07/09/20 Therapeutic Interventions Therapeutic Interventions Aquatic Therapy,Balance Training,Home Exercise Program ,Neuromuscular Re-education, Patient/Caregiver Education, Self-Care/Home Management,Soft Tissue Mobilization, Therapeutic Activities, Therapeutic Exercises Next Visit Focus/Plan Next Note Type Treatment Note Next Visit Plan Continue per PT POC: Strengthening, gait training, gait speed, balance training Plan of Care Dates Plan of Care Start Date 04/09/20 Plan of Care End Date 07/09/20 Electronically Signed by: Marv Holcomb, PT 04/09/20 [id number] Please Sign and Return: I have reviewed this Plan of Care and certify that the skilled therapy services above are required to meet the patient?s needs. Physician Signature Date Printed Name and Credentials Clinical Instructor Signature Printed Name and Credentials
--- NOTE | 2020-04-20 10:45 | PT.OTN ---
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 Pt has a history of 5 separate CVAs, and feels her largest problem is her very slow gait speed, as well as weakness. Her slow gait speed is a long- standing issue which has previously been addressed at physical therapy, and she has shown some improvement, but typically does not perform a lot of HEP following discharge , and typically then regresses . Pt does note she has been working with a development trainer in the local pool, and has begun attending gentle yoga classes, as well as a dancing class for people with disabilities. Prior Treatments and Tests Multiple rounds of physical therapy Treatment Goals Patient/Caregiver Goals Improve strengh and gait speed Prior Functional Status Baseline Function- ADL's Needs Assist Baseline Function- Mobility Needs Assist Baseline Function- Gait Very slow gait with bilateral walking sticks PT-OP-C Subjective Start: 03/13/19 11:58 Freq: Status: Active Protocol: Document 04/20/20 09:49 SP (Rec: 04/20/20 11:47 SP [id number]) OP-PT Subjective Patient Comments Patient Comments Pt stated I am feeling really tired today, I woke up at 8 am as opposed to 10 am usually does to get to today's appt. PT-OP-D Balance Start: 03/13/19 11:58 Freq: Status: Active Protocol: Document 04/09/20 16:45 DCW (Rec: 04/09/20 17:20 DCW [id number]) OP-PT Balance Assessment Sitting Balance Static Sitting Balance Ability Good Dynamic Sitting Balance Ability Good Standing Balance Static Standing Balance Ability Good Dynamic Standing Balance Ability Fair Tinetti Balance Assessment Sitting Balance Sitting Balance Steady, safe Arising from Chair Ability to Arise Able, uses arms to help Attempts to Arise Arises on 1st attempt Standing Balance Immediate Standing Balance Steady with support Standing Balance Narrow stance w/o support Nudged Response Steady Standing with Eyes Closed Steady Turning Step Pattern Turning 360 Degrees Discontinuous steps Stability Turning 360 Degrees Steady Sitting Down Sitting Down Uses arms or unsteady Gait and Step Initiation of Gait No hesitancy Right Foot Step Length Does pass stance foot Right Foot Step Height Completely clears floor Left Foot Step Length Does pass stance foot Left Foot Step Height Completely clears floor Step Description Step Symmetry Step length not equal Step Continuity Stopping or discontinuity Gait Description Path Description Straight Trunk Description No sway but posturing Walking Stance Heels together Scoring and Interpretation Tinetti Composite Score (points) 21 Interpretation of Scores At risk for falls (19-24) Tinetti Impairment Rating from Composite 20 to <40% Impaired (Score 17- Score 22) Vann Fall Scale Copyright Permission PT-OP-E Functional Tests Start: 03/13/19 11:58 Freq: Status: Active Protocol: Document 04/09/20 16:45 DCW (Rec: 04/09/20 17:20 DCW [id number]) Functional Tests 2 Minute Walk Test Distance 131' Device Used Bilateral walking sticks Comments 1.09 ft/sec Timed Up and Go (TUG) Score 25.3 Comments 3-trial average (22.65, 25.52, 27.74) TUG Impairment Rating 100% Impaired (Score 20) Tinetti Balance and Gait Assessment Balance Score 12/16 Gait Score 9/12 Composite Score 21/28 Balance Score Impairment Rating 20 to <40% Impaired (Score 10- 12) Gait Score Impairment Rating 20 to <40% Impaired (Score 8-9 ) Composite Score Impairment Rating 20 to <40% Impaired (Score 17- 22) PT-OP-M Strength Start: 03/13/19 11:58 Freq: Status: Active Protocol: Document 04/09/20 16:45 DCW (Rec: 04/09/20 17:20 DCW [id number]) Hip Strength Hip Manual Muscle Testing Right Flexion (L2) 4 Good Abduction 4+ Good+ Adduction 4 Good Left Flexion (L2) 4+ Good+ Abduction 4+ Good+ Adduction 4+ Good+ Knee Strength Knee Manual Muscle Testing Right Flexion (S2) 4+ Good+ Extension (L3) 4+ Good+ Left Flexion (S2) 4 Good Extension (L3) 4+ Good+ Ankle/Foot Strength Ankle and Foot Manual Muscle Testing Right Dorsiflexion (L4) 4+ Good+ Plantarflexion (S1) 4 Good Left Dorsiflexion (L4) 4+ Good+ Plantarflexion (S1) 4 Good PT-OP-Q Treatments Start: 03/13/19 11:58 Freq: Status: Active Protocol: Document 04/20/20 09:49 SP (Rec: 04/20/20 11:47 SP [id number]) Therapeutic Exercises Standing Exercises Marching Standing Exercise Name Marching fwd, side stepping Side bilateral Equipment Used //bars Reps/Minutes 10ftx2 each direction Comments 1 UE contact Hurdles Standing Exercise Name Hurdles forward, side stepping Equipment Used // bars Reps/Minutes 10 ft laps x2 each Comments 1 UE contact Other Exercises sit<->stand Other Exercise Name StS training with UE assist on chair Equipment Used standard height chair Reps/Minutes x10 Comments cues for feet under knees and hip hinge forward pushing off seat Gait Training Gait Activity Gait speed training Description 170' x1 (total lap) Device Used Walking sticks Treatment Focus Increased gait speed, increased stride length Comments 69 ft in 113 sec=0.61 ft/sec, 127 ft in 4:59:77 sec= 0.42 ft /sec; used metronome at 80 bpm . Neuro Re-Education Treatment Balance Activities balance board Details wt shift f/b/s, balance Equipment //bar Reps/Duration 2 min each direction Comments Renetta and 1> no had contact, cued COG over EMELY, PT-OP-T Assessment and Plan Start: 03/13/19 11:58 Freq: Status: Active Protocol: Document 04/20/20 09:49 SP (Rec: 04/20/20 11:47 SP [id number]) Physical Therapy Assessment Goals Five Impairment TUG score of 31.64 seconds Correction Goal (LTG) Pt to score at least 20 seconds on the TUG LTG Duration 12/24/20 - Improving (25.3 sec ) Four Impairment Tinetti Short Term Goal (STG) Pt to score at least 20/28 on Tinetti Balance Assessment STG Duration Met Lozenge Dough Mixer Goal (LTG) Pt to score at least 24/28 on Tinetti Balance Assessment LTG Duration 07/09/20 Three Impairment LE MMT Short Term Goal (STG) Pt LE MMT grossly to 4/5 in order to improve balance and activity tolerance STG Duration Met Correction Goal (LTG) Pt LE MMT grossly to 4+/5 in order to improve balance and activity tolerance LTG Duration 07/09/20 Two Impairment Gait speed of 0.85 ft/sec during two minute walk test Short Term Goal (STG) Pt gait speed to 1.2 ft/sec (2 MWT distance of 144'). STG Duration 05/28/20 - Improving (1.09 ft/ sec) Lozenge Dough Mixer Goal (LTG) Pt gait speed to 1.6 ft/sec (2 MWT distance of 192'). A gait speed of less than 1.97 indicates a greater likelihood of further functional decline in older adults LTG Duration 07/09/20 One Impairment Pt does not have an appropriate home exercise program Short Term Goal (STG) Pt to be independent and compliant with an appropriate HEP STG Duration 05/28/20 - Compliance improving Assessment Summary Assessment Pt decreased gait activity tolerance today requiring lap in gym in 2 lengths with Max cuing for increased stride, foot clearance and pacing, posture. Pt improved leaving post standing activities and stated I feel am move better now. Physical Therapy Plan Frequency and Duration Frequency of Treatment 2x/Week Duration of Treatment 3 months Plan of Care Start Date 04/09/20 Plan of Care End Date 07/09/20 Therapeutic Interventions Therapeutic Interventions Aquatic Therapy,Balance Training,Home Exercise Program ,Neuromuscular Re-education, Patient/Caregiver Education, Self-Care/Home Management,Soft Tissue Mobilization, Therapeutic Activities, Therapeutic Exercises Next Visit Focus/Plan Next Note Type Treatment Note Next Visit Plan Continue per PT POC: Strengthening, gait training, gait speed, balance training
--- NOTE | 2020-04-23 14:00 | PT-OP ANOTE ---
Pt did not show for today's appt, called her and she didn't realize that had an appt today. Reminded her next appt is 04/29/20 of which confirmed with her PT.
--- NOTE | 2020-04-27 12:05 | PT.OTN ---
Current Diagnoses Cerebral infarction, unspecified (04/27/20) Muscle weakness (generalized) (04/27/20) Other abnormalities of gait and mobility (04/27/20) Physical Therapy Treatment Note PT-OP-A Visit Information Start: 03/13/19 11:58 Freq: Status: Active Protocol: Document 04/27/20 11:15 DCW (Rec: 04/27/20 12:05 DCW [id number]) Out-Patient Physical Therapy Visit Information Visit Information Visit Type Treatment Note Visit Start Time 11:15 Visit Stop Time 12:00 Total Visit Minutes 45 Visit Number 48 Number of MAINTENANCE PORTER Visits 0 PT-OP-B Current Condition Start: 03/13/19 11:58 Freq: Status: Active Protocol: Document 03/13/19 11:15 DCW (Rec: 03/13/19 12:27 DCW [id number]) Current Condition History of Current Condition Onset Date Multi-year history Current Complaints Fatigue, weakness, imbalance, decreased gait speed History of Current Condition Pt is a 78 year old female well known to this clinic presenting with what she calls a loss of ground following her last round of physical therapy earlier in the year. Pt has a history of 5 separate CVAs, and feels her largest problem is her very slow gait speed, as well as weakness. Her slow gait speed is a long- standing issue which has previously been addressed at physical therapy, and she has shown some improvement, but typically does not perform a lot of HEP following discharge , and typically then regresses . Pt does note she has been working with a link trainer teacher in the local pool, and has begun attending gentle yoga classes, as well as a dancing class for people with disabilities. Prior Treatments and Tests Multiple rounds of physical therapy Treatment Goals Patient/Caregiver Goals Improve strengh and gait speed Prior Functional Status Baseline Function- ADL's Needs Assist Baseline Function- Mobility Needs Assist Baseline Function- Gait Very slow gait with bilateral walking sticks PT-OP-C Subjective Start: 03/13/19 11:58 Freq: Status: Active Protocol: Document 04/27/20 11:15 DCW (Rec: 04/27/20 12:05 DCW [id number]) OP-PT Subjective Patient Comments Patient Comments Pt reports she feels alright today, overall still pretty tired. PT-OP-D Balance Start: 03/13/19 11:58 Freq: Status: Active Protocol: Document 04/09/20 16:45 DCW (Rec: 04/09/20 17:20 DCW [id number]) OP-PT Balance Assessment Sitting Balance Static Sitting Balance Ability Good Dynamic Sitting Balance Ability Good Standing Balance Static Standing Balance Ability Good Dynamic Standing Balance Ability Fair Tinetti Balance Assessment Sitting Balance Sitting Balance Steady, safe Arising from Chair Ability to Arise Able, uses arms to help Attempts to Arise Arises on 1st attempt Standing Balance Immediate Standing Balance Steady with support Standing Balance Narrow stance w/o support Nudged Response Steady Standing with Eyes Closed Steady Turning Step Pattern Turning 360 Degrees Discontinuous steps Stability Turning 360 Degrees Steady Sitting Down Sitting Down Uses arms or unsteady Gait and Step Initiation of Gait No hesitancy Right Foot Step Length Does pass stance foot Right Foot Step Height Completely clears floor Left Foot Step Length Does pass stance foot Left Foot Step Height Completely clears floor Step Description Step Symmetry Step length not equal Step Continuity Stopping or discontinuity Gait Description Path Description Straight Trunk Description No sway but posturing Walking Stance Heels together Scoring and Interpretation Tinetti Composite Score (points) 21 Interpretation of Scores At risk for falls (19-24) Tinetti Impairment Rating from Composite 20 to <40% Impaired (Score 17- Score 22) Vann Fall Scale Copyright Permission PT-OP-E Functional Tests Start: 03/13/19 11:58 Freq: Status: Active Protocol: Document 04/09/20 16:45 DCW (Rec: 04/09/20 17:20 DCW [id number]) Functional Tests 2 Minute Walk Test Distance 131' Device Used Bilateral walking sticks Comments 1.09 ft/sec Timed Up and Go (TUG) Score 25.3 Comments 3-trial average (22.65, 25.52, 27.74) TUG Impairment Rating 100% Impaired (Score 20) Tinetti Balance and Gait Assessment Balance Score 12/16 Gait Score 9/12 Composite Score 21/28 Balance Score Impairment Rating 20 to <40% Impaired (Score 10- 12) Gait Score Impairment Rating 20 to <40% Impaired (Score 8-9 ) Composite Score Impairment Rating 20 to <40% Impaired (Score 17- 22) PT-OP-M Strength Start: 03/13/19 11:58 Freq: Status: Active Protocol: Document 04/09/20 16:45 DCW (Rec: 04/09/20 17:20 DCW [id number]) Hip Strength Hip Manual Muscle Testing Right Flexion (L2) 4 Good Abduction 4+ Good+ Adduction 4 Good Left Flexion (L2) 4+ Good+ Abduction 4+ Good+ Adduction 4+ Good+ Knee Strength Knee Manual Muscle Testing Right Flexion (S2) 4+ Good+ Extension (L3) 4+ Good+ Left Flexion (S2) 4 Good Extension (L3) 4+ Good+ Ankle/Foot Strength Ankle and Foot Manual Muscle Testing Right Dorsiflexion (L4) 4+ Good+ Plantarflexion (S1) 4 Good Left Dorsiflexion (L4) 4+ Good+ Plantarflexion (S1) 4 Good PT-OP-Q Treatments Start: 03/13/19 11:58 Freq: Status: Active Protocol: Document 04/27/20 11:15 DCW (Rec: 04/27/20 12:05 DCW [id number]) Cardio Equipment Recumbent Elliptical (Biodex) Duration (Minutes) 5 Resistance 3 Seat Position 9 Therapeutic Exercises Standing Exercises Hurdles Standing Exercise Name Hurdles forward, side stepping Equipment Used // bars Reps/Minutes 10 ft laps x2 each Comments 1 UE contact Gait Training Gait Activity Stride length Description Step count over specific distance Device Used Walking sticks Distance/Duration 20' course Comments # of steps: 13->12->13->13->13 ->14 Gait speed training Description 170' x2 Device Used Walking sticks Treatment Focus Increased gait speed, increased stride length Comments 170' time: 195.28 (0.87 ft/ sec); 249.95 (0.68 ft/sec). Both attempts used metronome at 80 bpm. PT-OP-T Assessment and Plan Start: 03/13/19 11:58 Freq: Status: Active Protocol: Document 04/27/20 11:15 DCW (Rec: 04/27/20 12:05 DCW [id number]) Physical Therapy Assessment Impairments Impairments Activity Tolerance,Balance, Functional Activities, Functional Mobility,Gait, Posture,Strength,Transfers Goals Five Impairment TUG score of 31.64 seconds [place] Goal (LTG) Pt to score at least 20 seconds on the TUG LTG Duration 07/09/20 - Improving (25.3 sec ) Four Impairment Tinetti Short Term Goal (STG) Pt to score at least 20/28 on Tinetti Balance Assessment STG Duration Met Care Home Goal (LTG) Pt to score at least 24/28 on Tinetti Balance Assessment LTG Duration 07/09/20 Three Impairment LE MMT Short Term Goal (STG) Pt LE MMT grossly to 4/5 in order to improve balance and activity tolerance STG Duration Met [place] Goal (LTG) Pt LE MMT grossly to 4+/5 in order to improve balance and activity tolerance LTG Duration 07/09/20 Two Impairment Gait speed of 0.85 ft/sec during two minute walk test Short Term Goal (STG) Pt gait speed to 1.2 ft/sec (2 MWT distance of 144'). STG Duration 05/28/20 - Improving (1.09 ft/ sec) Care Home Goal (LTG) Pt gait speed to 1.6 ft/sec (2 MWT distance of 192'). A gait speed of less than 1.97 indicates a greater likelihood of further functional decline in older adults LTG Duration 07/09/20 One Impairment Pt does not have an appropriate home exercise program Short Term Goal (STG) Pt to be independent and compliant with an appropriate HEP STG Duration 05/28/20 - Compliance improving Assessment Summary Assessment Pt had a very difficult time ambulating today, was much mote fatigued and slower than usual. Pt not able to get through much activity due to such slow movement. Will need to track current mobility, may need to return to PCP if pt does not improve soon. Physical Therapy Plan Frequency and Duration Frequency of Treatment 2x/Week Duration of Treatment 3 months Plan of Care Start Date 04/09/20 Plan of Care End Date 07/09/20 Therapeutic Interventions Therapeutic Interventions Aquatic Therapy,Balance Training,Home Exercise Program ,Neuromuscular Re-education, Patient/Caregiver Education, Self-Care/Home Management,Soft Tissue Mobilization, Therapeutic Activities, Therapeutic Exercises Next Visit Focus/Plan Next Note Type Treatment Note Next Visit Plan Continue per PT POC: Strengthening, gait training, gait speed, balance training
--- NOTE | 2020-04-29 12:03 | PT.OTN ---
Current Diagnoses Cerebral infarction, unspecified (04/27/20) Muscle weakness (generalized) (04/27/20) Other abnormalities of gait and mobility (04/27/20) Physical Therapy Treatment Note PT-OP-A Visit Information Start: 03/13/19 11:58 Freq: Status: Active Protocol: Document 04/29/20 11:25 DCW (Rec: 04/29/20 12:03 DCW [id number]) Out-Patient Physical Therapy Visit Information Visit Information Visit Type Treatment Note Visit Note 10 min late Visit Start Time 11:25 Visit Stop Time 12:00 Total Visit Minutes 35 Visit Number 49 Number of TRIM INSTALLER Visits 0 PT-OP-B Current Condition Start: 03/13/19 11:58 Freq: Status: Active Protocol: Document 03/13/19 11:15 DCW (Rec: 03/13/19 12:27 DCW [id number]) Current Condition History of Current Condition Onset Date Multi-year history Current Complaints Fatigue, weakness, imbalance, decreased gait speed History of Current Condition Pt is a 78 year old female well known to this clinic presenting with what she calls a loss of ground following her last round of physical therapy earlier in the year. Pt has a history of 5 separate CVAs, and feels her largest problem is her very slow gait speed, as well as weakness. Her slow gait speed is a long- standing issue which has previously been addressed at physical therapy, and she has shown some improvement, but typically does not perform a lot of HEP following discharge , and typically then regresses . Pt does note she has been working with a software trainer in the local pool, and has begun attending gentle yoga classes, as well as a dancing class for people with disabilities. Prior Treatments and Tests Multiple rounds of physical therapy Treatment Goals Patient/Caregiver Goals Improve strengh and gait speed Prior Functional Status Baseline Function- ADL's Needs Assist Baseline Function- Mobility Needs Assist Baseline Function- Gait Very slow gait with bilateral walking sticks PT-OP-C Subjective Start: 03/13/19 11:58 Freq: Status: Active Protocol: Document 04/29/20 11:25 DCW (Rec: 04/29/20 12:03 DCW [id number]) OP-PT Subjective Patient Comments Patient Comments Pt feels fine today. PT-OP-D Balance Start: 03/13/19 11:58 Freq: Status: Active Protocol: Document 04/09/20 16:45 DCW (Rec: 04/09/20 17:20 DCW [id number]) OP-PT Balance Assessment Sitting Balance Static Sitting Balance Ability Good Dynamic Sitting Balance Ability Good Standing Balance Static Standing Balance Ability Good Dynamic Standing Balance Ability Fair Tinetti Balance Assessment Sitting Balance Sitting Balance Steady, safe Arising from Chair Ability to Arise Able, uses arms to help Attempts to Arise Arises on 1st attempt Standing Balance Immediate Standing Balance Steady with support Standing Balance Narrow stance w/o support Nudged Response Steady Standing with Eyes Closed Steady Turning Step Pattern Turning 360 Degrees Discontinuous steps Stability Turning 360 Degrees Steady Sitting Down Sitting Down Uses arms or unsteady Gait and Step Initiation of Gait No hesitancy Right Foot Step Length Does pass stance foot Right Foot Step Height Completely clears floor Left Foot Step Length Does pass stance foot Left Foot Step Height Completely clears floor Step Description Step Symmetry Step length not equal Step Continuity Stopping or discontinuity Gait Description Path Description Straight Trunk Description No sway but posturing Walking Stance Heels together Scoring and Interpretation Tinetti Composite Score (points) 21 Interpretation of Scores At risk for falls (19-24) Tinetti Impairment Rating from Composite 20 to <40% Impaired (Score 17- Score 22) Vann Fall Scale Copyright Permission PT-OP-E Functional Tests Start: 03/13/19 11:58 Freq: Status: Active Protocol: Document 04/09/20 16:45 DCW (Rec: 04/09/20 17:20 DCW [id number]) Functional Tests 2 Minute Walk Test Distance 131' Device Used Bilateral walking sticks Comments 1.09 ft/sec Timed Up and Go (TUG) Score 25.3 Comments 3-trial average (22.65, 25.52, 27.74) TUG Impairment Rating 100% Impaired (Score 20) Tinetti Balance and Gait Assessment Balance Score 12/16 Gait Score 9/12 Composite Score 21/28 Balance Score Impairment Rating 20 to <40% Impaired (Score 10- 12) Gait Score Impairment Rating 20 to <40% Impaired (Score 8-9 ) Composite Score Impairment Rating 20 to <40% Impaired (Score 17- 22) PT-OP-M Strength Start: 03/13/19 11:58 Freq: Status: Active Protocol: Document 04/09/20 16:45 DCW (Rec: 04/09/20 17:20 DCW [id number]) Hip Strength Hip Manual Muscle Testing Right Flexion (L2) 4 Good Abduction 4+ Good+ Adduction 4 Good Left Flexion (L2) 4+ Good+ Abduction 4+ Good+ Adduction 4+ Good+ Knee Strength Knee Manual Muscle Testing Right Flexion (S2) 4+ Good+ Extension (L3) 4+ Good+ Left Flexion (S2) 4 Good Extension (L3) 4+ Good+ Ankle/Foot Strength Ankle and Foot Manual Muscle Testing Right Dorsiflexion (L4) 4+ Good+ Plantarflexion (S1) 4 Good Left Dorsiflexion (L4) 4+ Good+ Plantarflexion (S1) 4 Good PT-OP-Q Treatments Start: 03/13/19 11:58 Freq: Status: Active Protocol: Document 04/29/20 11:25 DCW (Rec: 04/29/20 12:03 DCW [id number]) Cardio Equipment Recumbent Elliptical ([employer]) Duration (Minutes) 6 Resistance 3 Seat Position 9 Gait Training Gait Activity Stride length Description Step count over specific distance Device Used Walking sticks Distance/Duration 20' course Comments # of steps: 13->12->12->11->12 ->12 Gait speed training Description 170' x2 Device Used Walking sticks Treatment Focus Increased gait speed, increased stride length Comments 170' time: 218.90 (0.78 ft/ sec); 187.90 (0.90 ft/sec). Both attempts used metronome at 80 bpm. PT-OP-T Assessment and Plan Start: 03/13/19 11:58 Freq: Status: Active Protocol: Document 04/29/20 11:25 DCW (Rec: 04/29/20 12:03 DCW [id number]) Physical Therapy Assessment Impairments Impairments Activity Tolerance,Balance, Functional Activities, Functional Mobility,Gait, Posture,Strength,Transfers Goals Five Impairment TUG score of 31.64 seconds Fiber Locking Supervisor Goal (LTG) Pt to score at least 20 seconds on the TUG LTG Duration 07/09/20 - Improving (25.3 sec ) Four Impairment Tinetti Short Term Goal (STG) Pt to score at least 20/28 on Tinetti Balance Assessment STG Duration Met Mcc Goal (LTG) Pt to score at least 24/28 on Tinetti Balance Assessment LTG Duration 07/09/20 Three Impairment LE MMT Short Term Goal (STG) Pt LE MMT grossly to 4/5 in order to improve balance and activity tolerance STG Duration Met Fiber Locking Supervisor Goal (LTG) Pt LE MMT grossly to 4+/5 in order to improve balance and activity tolerance LTG Duration 07/09/20 Two Impairment Gait speed of 0.85 ft/sec during two minute walk test Short Term Goal (STG) Pt gait speed to 1.2 ft/sec (2 MWT distance of 144'). STG Duration 05/28/20 - Improving (1.09 ft/ sec) Mcc Goal (LTG) Pt gait speed to 1.6 ft/sec (2 MWT distance of 192'). A gait speed of less than 1.97 indicates a greater likelihood of further functional decline in older adults LTG Duration 07/09/20 One Impairment Pt does not have an appropriate home exercise program Short Term Goal (STG) Pt to be independent and compliant with an appropriate HEP STG Duration 05/28/20 - Compliance improving Assessment Summary Assessment Pt limited in participation today due to late arrival, and did relatively poorly in the activities she was able to do. Gait continues to seemingly decline with step length and art. Physical Therapy Plan Frequency and Duration Frequency of Treatment 2x/Week Duration of Treatment 3 months Plan of Care Start Date 04/09/20 Plan of Care End Date 07/09/20 Therapeutic Interventions Therapeutic Interventions Aquatic Therapy,Balance Training,Home Exercise Program ,Neuromuscular Re-education, Patient/Caregiver Education, Self-Care/Home Management,Soft Tissue Mobilization, Therapeutic Activities, Therapeutic Exercises Next Visit Focus/Plan Next Note Type Treatment Note Next Visit Plan Continue per PT POC: Strengthening, gait training, gait speed, balance training
--- NOTE | 2020-05-04 15:24 | PT.OTN ---
Current Diagnoses Cerebral infarction, unspecified (05/04/20) Muscle weakness (generalized) (05/04/20) Other abnormalities of gait and mobility (05/04/20) Physical Therapy Treatment Note PT-OP-A Visit Information Start: 03/13/19 11:58 Freq: Status: Active Protocol: Document 05/04/20 14:33 SP (Rec: 05/04/20 15:30 SP [id number]) Out-Patient Physical Therapy Visit Information Visit Information Visit Type Treatment Note Visit Start Time 14:33 Visit Stop Time 15:24 Total Visit Minutes 51 Visit Number 50 Number of MULTIPLE TUBE WINDING MACHINE OPERATOR Visits 1 PT-OP-B Current Condition Start: 03/13/19 11:58 Freq: Status: Active Protocol: Document 03/13/19 11:15 DCW (Rec: 03/13/19 12:27 DCW [id number]) Current Condition History of Current Condition Onset Date Multi-year history Current Complaints Fatigue, weakness, imbalance, decreased gait speed History of Current Condition Pt is a 78 year old female well known to this clinic presenting with what she calls a loss of ground following her last round of physical therapy earlier in the year. Pt has a history of 5 separate CVAs, and feels her largest problem is her very slow gait speed, as well as weakness. Her slow gait speed is a long- standing issue which has previously been addressed at physical therapy, and she has shown some improvement, but typically does not perform a lot of HEP following discharge , and typically then regresses . Pt does note she has been working with a weight trainer in the local pool, and has begun attending gentle yoga classes, as well as a dancing class for people with disabilities. Prior Treatments and Tests Multiple rounds of physical therapy Treatment Goals Patient/Caregiver Goals Improve strengh and gait speed Prior Functional Status Baseline Function- ADL's Needs Assist Baseline Function- Mobility Needs Assist Baseline Function- Gait Very slow gait with bilateral walking sticks PT-OP-C Subjective Start: 03/13/19 11:58 Freq: Status: Active Protocol: Document 05/04/20 14:33 SP (Rec: 05/04/20 15:30 SP [id number]) OP-PT Subjective Patient Comments Patient Comments Pt stated feeling fine today. PT-OP-D Balance Start: 03/13/19 11:58 Freq: Status: Active Protocol: Document 09/24/20 16:45 DCW (Rec: 04/09/20 17:20 DCW [id number]) OP-PT Balance Assessment Sitting Balance Static Sitting Balance Ability Good Dynamic Sitting Balance Ability Good Standing Balance Static Standing Balance Ability Good Dynamic Standing Balance Ability Fair Tinetti Balance Assessment Sitting Balance Sitting Balance Steady, safe Arising from Chair Ability to Arise Able, uses arms to help Attempts to Arise Arises on 1st attempt Standing Balance Immediate Standing Balance Steady with support Standing Balance Narrow stance w/o support Nudged Response Steady Standing with Eyes Closed Steady Turning Step Pattern Turning 360 Degrees Discontinuous steps Stability Turning 360 Degrees Steady Sitting Down Sitting Down Uses arms or unsteady Gait and Step Initiation of Gait No hesitancy Right Foot Step Length Does pass stance foot Right Foot Step Height Completely clears floor Left Foot Step Length Does pass stance foot Left Foot Step Height Completely clears floor Step Description Step Symmetry Step length not equal Step Continuity Stopping or discontinuity Gait Description Path Description Straight Trunk Description No sway but posturing Walking Stance Heels together Scoring and Interpretation Tinetti Composite Score (points) 21 Interpretation of Scores At risk for falls (19-24) Tinetti Impairment Rating from Composite 20 to <40% Impaired (Score 17- Score 22) Vann Fall Scale Copyright Permission PT-OP-E Functional Tests Start: 03/13/19 11:58 Freq: Status: Active Protocol: Document 04/09/20 16:45 DCW (Rec: 04/09/20 17:20 DCW [id number]) Functional Tests 2 Minute Walk Test Distance 131' Device Used Bilateral walking sticks Comments 1.09 ft/sec Timed Up and Go (TUG) Score 25.3 Comments 3-trial average (22.65, 25.52, 27.74) TUG Impairment Rating 100% Impaired (Score 20) Tinetti Balance and Gait Assessment Balance Score 12/16 Gait Score 9/12 Composite Score /28 Balance Score Impairment Rating 20 to <40% Impaired (Score 10- 12) Gait Score Impairment Rating 20 to <40% Impaired (Score 8-9 ) Composite Score Impairment Rating 20 to <40% Impaired (Score 17- 22) PT-OP-M Strength Start: 03/13/19 11:58 Freq: Status: Active Protocol: Document 04/09/20 16:45 DCW (Rec: 04/09/20 17:20 DCW [id number]) Hip Strength Hip Manual Muscle Testing Right Flexion (L2) 4 Good Abduction 4+ Good+ Adduction 4 Good Left Flexion (L2) 4+ Good+ Abduction 4+ Good+ Adduction 4+ Good+ Knee Strength Knee Manual Muscle Testing Right Flexion (S2) 4+ Good+ Extension (L3) 4+ Good+ Left Flexion (S2) 4 Good Extension (L3) 4+ Good+ Ankle/Foot Strength Ankle and Foot Manual Muscle Testing Right Dorsiflexion (L4) 4+ Good+ Plantarflexion (S1) 4 Good Left Dorsiflexion (L4) 4+ Good+ Plantarflexion (S1) 4 Good PT-OP-Q Treatments Start: 03/13/19 11:58 Freq: Status: Active Protocol: Document 05/04/20 14:33 SP (Rec: 05/04/20 15:30 SP [id number]) Cardio Equipment Recumbent Elliptical ([employer]) Duration (Minutes) 6 Resistance 2 Seat Position 8 Therapeutic Exercises Other Exercises Side-stepping Resistance Tb g> y Reps/Minutes 10 ft x2 laps w/ 1- 2 min rest break Comments seated rest required between dist, woozy, tired quickly sit<->stand Equipment Used 18 chair Reps/Minutes 2 reps 20 sec, completed 5 total Comments cued hip hinge foward and use BUE (retro lean CGA) Gait Training Gait Activity Stride length Description Step count over specific distance Device Used Walking sticks Distance/Duration 20' course Comments # of steps: 12->11->11->10->10 ->10 Gait speed training Description 170' x2 Device Used Walking sticks Treatment Focus Increased gait speed, increased stride length Comments 170' time: 218.90 (0.78 ft/ sec); 187.90 (0.90 ft/sec). Both attempts used metronome at 80 bpm. PT-OP-T Assessment and Plan Start: 03/13/19 11:58 Freq: Status: Active Protocol: Document 05/04/20 14:33 SP (Rec: 05/04/20 15:30 SP [id number]) Physical Therapy Assessment Goals Five Impairment TUG score of 31.64 seconds Prison Goal (LTG) Pt to score at least 20 seconds on the TUG LTG Duration 07/09/20 - Improving (25.3 sec ) Four Impairment Tinetti Short Term Goal (STG) Pt to score at least 20/28 on Tinetti Balance Assessment STG Duration Met Fowl Blood Tester Goal (LTG) Pt to score at least 24/28 on Tinetti Balance Assessment LTG Duration 07/09/20 Three Impairment LE MMT Short Term Goal (STG) Pt LE MMT grossly to 4/5 in order to improve balance and activity tolerance STG Duration Met Fowl Blood Tester Goal (LTG) Pt LE MMT grossly to 4+/5 in order to improve balance and activity tolerance LTG Duration 07/09/20 Two Impairment Gait speed of 0.85 ft/sec during two minute walk test Short Term Goal (STG) Pt gait speed to 1.2 ft/sec (2 MWT distance of 144'). STG Duration 05/28/20 - Improving (1.09 ft/ sec) Prison Goal (LTG) Pt gait speed to 1.6 ft/sec (2 MWT distance of 192'). A gait speed of less than 1.97 indicates a greater likelihood of further functional decline in older adults LTG Duration 07/09/20 One Impairment Pt does not have an appropriate home exercise program Short Term Goal (STG) Pt to be independent and compliant with an appropriate HEP STG Duration 05/28/20 - Compliance improving Assessment Summary Assessment Pt demonstrated decreased strength and endurance today, required increased encouragement for activity, needed decrease metronome pacing 80>65 step/min and still challenged at times to maintain. She required stopped standing rests to recover from + SOB each distance ( wearing N95 mask today son got her and wants her to wear for safety), max cuing for stride length and foot clearance during gait. Decreased resistance GTB> YTB during side stepping to allow for increased range against resistance. Improved in step length at rail than past tx. Physical Therapy Plan Frequency and Duration Frequency of Treatment 2x/Week Duration of Treatment 3 months Plan of Care Start Date 04/09/20 Plan of Care End Date 07/09/20 Therapeutic Interventions Therapeutic Interventions Aquatic Therapy,Balance Training,Home Exercise Program ,Neuromuscular Re-education, Patient/Caregiver Education, Self-Care/Home Management,Soft Tissue Mobilization, Therapeutic Activities, Therapeutic Exercises Next Visit Focus/Plan Next Note Type Treatment Note Next Visit Plan Continue per PT POC: Strengthening, gait training, gait speed, balance training
--- NOTE | 2020-05-06 11:15 | PT.OTN ---
Current Diagnoses Cerebral infarction, unspecified (05/06/20) Muscle weakness (generalized) (05/06/20) Other abnormalities of gait and mobility (05/06/20) Physical Therapy Treatment Note PT-OP-A Visit Information Start: 03/13/19 11:58 Freq: Status: Active Protocol: Document 05/06/20 11:15 DLM (Rec: 05/07/20 20:15 DLM [id number]) Out-Patient Physical Therapy Visit Information Visit Information Visit Type Treatment Note Visit Start Time 11:15 Visit Stop Time 12:05 Total Visit Minutes 50 Visit Number 51 Number of SET UP MECHANIC COIL WINDING MACHINES Visits 0 Evaluation Information Evaluation Date 03/13/19 PT-OP-B Current Condition Start: 03/13/19 11:58 Freq: Status: Active Protocol: Document 03/13/19 11:15 DCW (Rec: 03/13/19 12:27 DCW [id number]) Current Condition History of Current Condition Onset Date Multi-year history Current Complaints Fatigue, weakness, imbalance, decreased gait speed History of Current Condition Pt is a 78 year old female well known to this clinic presenting with what she calls a loss of ground following her last round of physical therapy earlier in the year. Pt has a history of 5 separate CVAs, and feels her largest problem is her very slow gait speed, as well as weakness. Her slow gait speed is a long- standing issue which has previously been addressed at physical therapy, and she has shown some improvement, but typically does not perform a lot of HEP following discharge , and typically then regresses . 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 Prior Treatments and Tests Multiple rounds of physical therapy Treatment Goals Patient/Caregiver Goals Improve strengh and gait speed Prior Functional Status Baseline Function- ADL's Needs Assist Baseline Function- Mobility Needs Assist Baseline Function- Gait Very slow gait with bilateral walking sticks PT-OP-C Subjective Start: 03/13/19 11:58 Freq: Status: Active Protocol: Document 05/06/20 11:15 DLM (Rec: 05/07/20 20:15 DLM [id number]) OP-PT Subjective Patient Comments Patient Comments Her low back pain is affecting her ability to walk. She does not have a HEP. PT-OP-D Balance Start: 03/13/19 11:58 Freq: Status: Active Protocol: Document 04/09/20 16:45 DCW (Rec: 04/09/20 17:20 DCW [id number]) OP-PT Balance Assessment Sitting Balance Static Sitting Balance Ability Good Dynamic Sitting Balance Ability Good Standing Balance Static Standing Balance Ability Good Dynamic Standing Balance Ability Fair Tinetti Balance Assessment Sitting Balance Sitting Balance Steady, safe Arising from Chair Ability to Arise Able, uses arms to help Attempts to Arise Arises on 1st attempt Standing Balance Immediate Standing Balance Steady with support Standing Balance Narrow stance w/o support Nudged Response Steady Standing with Eyes Closed Steady Turning Step Pattern Turning 360 Degrees Discontinuous steps Stability Turning 360 Degrees Steady Sitting Down Sitting Down Uses arms or unsteady Gait and Step Initiation of Gait No hesitancy Right Foot Step Length Does pass stance foot Right Foot Step Height Completely clears floor Left Foot Step Length Does pass stance foot Left Foot Step Height Completely clears floor Step Description Step Symmetry Step length not equal Step Continuity Stopping or discontinuity Gait Description Path Description Straight Trunk Description No sway but posturing Walking Stance Heels together Scoring and Interpretation Tinetti Composite Score (points) 21 Interpretation of Scores At risk for falls (19-24) Tinetti Impairment Rating from Composite 20 to <40% Impaired (Score 17- Score 22) Vann Fall Scale Copyright Permission PT-OP-E Functional Tests Start: 03/13/19 11:58 Freq: Status: Active Protocol: Document 04/09/20 16:45 DCW (Rec: 04/09/20 17:20 DCW [id number]) Functional Tests 2 Minute Walk Test Distance 131' Device Used Bilateral walking sticks Comments 1.09 ft/sec Timed Up and Go (TUG) Score 25.3 Comments 3-trial average (22.65, 25.52, 27.74) TUG Impairment Rating 100% Impaired (Score 20) Tinetti Balance and Gait Assessment Balance Score 12/16 Gait Score 9/12 Composite Score 21/28 Balance Score Impairment Rating 20 to <40% Impaired (Score 10- 12) Gait Score Impairment Rating 20 to <40% Impaired (Score 8-9 ) Composite Score Impairment Rating 20 to <40% Impaired (Score 17- 22) PT-OP-M Strength Start: 03/13/19 11:58 Freq: Status: Active Protocol: Document 04/09/20 16:45 DCW (Rec: 04/09/20 17:20 DCW [id number]) Hip Strength Hip Manual Muscle Testing Right Flexion (L2) 4 Good Abduction 4+ Good+ Adduction 4 Good Left Flexion (L2) 4+ Good+ Abduction 4+ Good+ Adduction 4+ Good+ Knee Strength Knee Manual Muscle Testing Right Flexion (S2) 4+ Good+ Extension (L3) 4+ Good+ Left Flexion (S2) 4 Good Extension (L3) 4+ Good+ Ankle/Foot Strength Ankle and Foot Manual Muscle Testing Right Dorsiflexion (L4) 4+ Good+ Plantarflexion (S1) 4 Good Left Dorsiflexion (L4) 4+ Good+ Plantarflexion (S1) 4 Good PT-OP-Q Treatments Start: 03/13/19 11:58 Freq: Status: Active Protocol: Document 05/06/20 11:15 DLM (Rec: 05/07/20 20:15 DLM [id number]) Cardio Equipment Recumbent Elliptical (Biodex) Duration (Minutes) 6 Resistance 3 Seat Position 8 Therapeutic Exercises Sitting Exercises Hamstring Stretch Sitting Exercise Name seated with feet on stool Side bilateral Resistance passive Equipment Used black stool Reps/Minutes 2 min Standing Exercises Marching Standing Exercise Name marching Side bilateral Equipment Used // bars Reps/Minutes x 2 laps Other Exercises Side-stepping Resistance Yellow theraband loop Reps/Minutes 10 feet x 2 sit<->stand Equipment Used 18 chair Reps/Minutes 2 reps 20 sec, completed 5 total Comments cued hip hinge foward and use BUE (retro lean CGA) Gait Training Gait Activity Stride length Description steps to visual goal Device Used Walking sticks Distance/Duration 20' course Gait speed training Description 170' x2 Device Used Walking sticks Treatment Focus Increased gait speed, increased stride length Comments used metronome at 80 bpm. PT-OP-T Assessment and Plan Start: 03/13/19 11:58 Freq: Status: Active Protocol: Document 05/06/20 11:15 DLM (Rec: 05/07/20 20:15 DLM [id number]) Physical Therapy Assessment Goals Five Impairment TUG score of 31.64 seconds Snf Goal (LTG) Pt to score at least 20 seconds on the TUG LTG Duration 07/09/20 - Improving (25.3 sec ) Four Impairment Tinetti Short Term Goal (STG) Pt to score at least 20/28 on Tinetti Balance Assessment STG Duration Met Snf Goal (LTG) Pt to score at least 24/28 on Tinetti Balance Assessment LTG Duration 07/09/20 Three Impairment LE MMT Short Term Goal (STG) Pt LE MMT grossly to 4/5 in order to improve balance and activity tolerance STG Duration Met Pattern Changer Goal (LTG) Pt LE MMT grossly to 4+/5 in order to improve balance and activity tolerance LTG Duration 07/09/20 Two Impairment Gait speed of 0.85 ft/sec during two minute walk test Short Term Goal (STG) Pt gait speed to 1.2 ft/sec (2 MWT distance of 144'). STG Duration 05/28/20 - Improving (1.09 ft/ sec) Snf Goal (LTG) Pt gait speed to 1.6 ft/sec (2 MWT distance of 192'). A gait speed of less than 1.97 indicates a greater likelihood of further functional decline in older adults LTG Duration 07/09/20 One Impairment Pt does not have an appropriate home exercise program Short Term Goal (STG) Pt to be independent and compliant with an appropriate HEP STG Duration 05/28/20 - Compliance improving Assessment Summary Assessment She shows good effort with with therapy. She needs short seated rests to manage her fatigue. Pt complaining of low back pain today. Physical Therapy Plan Frequency and Duration Frequency of Treatment 2x/Week Duration of Treatment 3 months Plan of Care Start Date 04/09/20 Plan of Care End Date 07/09/20 Therapeutic Interventions Therapeutic Interventions Aquatic Therapy,Balance Training,Home Exercise Program ,Neuromuscular Re-education, Patient/Caregiver Education, Self-Care/Home Management,Soft Tissue Mobilization, Therapeutic Activities, Therapeutic Exercises Next Visit Focus/Plan Next Note Type Treatment Note Next Visit Plan provide HEP next visit
--- NOTE | 2020-05-12 13:00 | PT.OTN ---
Current Diagnoses Cerebral infarction, unspecified (05/12/20) Muscle weakness (generalized) (05/12/20) Other abnormalities of gait and mobility (05/12/20) Physical Therapy Treatment Note PT-OP-A Visit Information Start: 03/13/19 11:58 Freq: Status: Active Protocol: Document 05/12/20 12:18 SP (Rec: 05/12/20 16:32 SP [id number]) Out-Patient Physical Therapy Visit Information Visit Information Visit Type Treatment Note Visit Note 3 min late for tx today. Visit Start Time 12:18 Visit Stop Time 13:00 Total Visit Minutes 42 Visit Number 52 Number of RESPIRATORY SUPPORT TECHNICIAN Visits 1 PT-OP-B Current Condition Start: 03/13/19 11:58 Freq: Status: Active Protocol: Document 03/13/19 11:15 DCW (Rec: 03/13/19 12:27 DCW [id number]) Current Condition History of Current Condition Onset Date Multi-year history Current Complaints Fatigue, weakness, imbalance, decreased gait speed History of Current Condition Pt is a 78 year old female well known to this clinic presenting with what she calls a loss of ground following her last round of physical therapy earlier in the year. Pt has a history of 5 separate CVAs, and feels her largest problem is her very slow gait speed, as well as weakness. Her slow gait speed is a long- standing issue which has previously been addressed at physical therapy, and she has shown some improvement, but typically does not perform a lot of HEP following discharge , and typically then regresses . 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 Prior Treatments and Tests Multiple rounds of physical therapy Treatment Goals Patient/Caregiver Goals Improve strengh and gait speed Prior Functional Status Baseline Function- ADL's Needs Assist Baseline Function- Mobility Needs Assist Baseline Function- Gait Very slow gait with bilateral walking sticks PT-OP-C Subjective Start: 03/13/19 11:58 Freq: Status: Active Protocol: Document 05/12/20 12:18 SP (Rec: 05/12/20 16:32 SP [id number]) OP-PT Subjective Patient Comments Patient Comments Pt reported having R hip pain 2/10 and LBP upon arrival today, was 8/10 last night but put some analgesic on and helps with pain control. I feel like I am getting worse. PT-OP-D Balance Start: 03/13/19 11:58 Freq: Status: Active Protocol: Document 04/09/20 16:45 DCW (Rec: 04/09/20 17:20 DCW [id number]) OP-PT Balance Assessment Sitting Balance Static Sitting Balance Ability Good Dynamic Sitting Balance Ability Good Standing Balance Static Standing Balance Ability Good Dynamic Standing Balance Ability Fair Tinetti Balance Assessment Sitting Balance Sitting Balance Steady, safe Arising from Chair Ability to Arise Able, uses arms to help Attempts to Arise Arises on 1st attempt Standing Balance Immediate Standing Balance Steady with support Standing Balance Narrow stance w/o support Nudged Response Steady Standing with Eyes Closed Steady Turning Step Pattern Turning 360 Degrees Discontinuous steps Stability Turning 360 Degrees Steady Sitting Down Sitting Down Uses arms or unsteady Gait and Step Initiation of Gait No hesitancy Right Foot Step Length Does pass stance foot Right Foot Step Height Completely clears floor Left Foot Step Length Does pass stance foot Left Foot Step Height Completely clears floor Step Description Step Symmetry Step length not equal Step Continuity Stopping or discontinuity Gait Description Path Description Straight Trunk Description No sway but posturing Walking Stance Heels together Scoring and Interpretation Tinetti Composite Score (points) 21 Interpretation of Scores At risk for falls (19-24) Tinetti Impairment Rating from Composite 20 to <40% Impaired (Score 17- Score 22) Vann Fall Scale Copyright Permission PT-OP-E Functional Tests Start: 03/13/19 11:58 Freq: Status: Active Protocol: Document 04/09/20 16:45 DCW (Rec: 04/09/20 17:20 DCW [id number]) Functional Tests 2 Minute Walk Test Distance 131' Device Used Bilateral walking sticks Comments 1.09 ft/sec Timed Up and Go (TUG) Score 25.3 Comments 3-trial average (22.65, 25.52, 27.74) TUG Impairment Rating 100% Impaired (Score 20) Tinetti Balance and Gait Assessment Balance Score 12/16 Gait Score 9/12 Composite Score 21/28 Balance Score Impairment Rating 20 to <40% Impaired (Score 10- 12) Gait Score Impairment Rating 20 to <40% Impaired (Score 8-9 ) Composite Score Impairment Rating 20 to <40% Impaired (Score 17- 22) PT-OP-M Strength Start: 03/13/19 11:58 Freq: Status: Active Protocol: Document 04/09/20 16:45 DCW (Rec: 04/09/20 17:20 DCW [id number]) Hip Strength Hip Manual Muscle Testing Right Flexion (L2) 4 Good Abduction 4+ Good+ Adduction 4 Good Left Flexion (L2) 4+ Good+ Abduction 4+ Good+ Adduction 4+ Good+ Knee Strength Knee Manual Muscle Testing Right Flexion (S2) 4+ Good+ Extension (L3) 4+ Good+ Left Flexion (S2) 4 Good Extension (L3) 4+ Good+ Ankle/Foot Strength Ankle and Foot Manual Muscle Testing Right Dorsiflexion (L4) 4+ Good+ Plantarflexion (S1) 4 Good Left Dorsiflexion (L4) 4+ Good+ Plantarflexion (S1) 4 Good PT-OP-Q Treatments Start: 03/13/19 11:58 Freq: Status: Active Protocol: Document 05/12/20 12:18 SP (Rec: 05/12/20 16:32 SP [id number]) Therapeutic Exercises Supine Exercises LTR Side bilateral Reps/Minutes 15 sec x5 Comments hip > LB stretch- good result feedback Other Exercises supine<> sitting Comments Min A for LLE (L side of table ), cued for lateral scoot to center self tabl Gait Training Gait Activity Gait speed training Description 170' x2 Device Used Walking sticks Treatment Focus Increased gait speed, increased stride length Comments used metronome at 80 bpm. 170 sec 170 ft. (1.0 ft/sec) at 80 bpm; 216 sec/ 170 ft=1. 27 sec. Manual Therapy Treatment Soft Tissue Mobilization R hip and L/S STMs Body Location R glut med, piriformis, Paraspinals Mobilization Type Cross-Friction,Strumming Intensity/Depth Moderate Body Position Sidelying Comments L Manual Traction LS Details w/ mobe strap Body Position Hooklying Reps/Duration 30 sec x3 Comments gentle distraction PT-OP-T Assessment and Plan Start: 03/13/19 11:58 Freq: Status: Active Protocol: Document 05/12/20 12:18 SP (Rec: 05/12/20 16:32 SP [id number]) Physical Therapy Assessment Goals Five Impairment TUG score of 31.64 seconds Detention Goal (LTG) Pt to score at least 20 seconds on the TUG LTG Duration 07/09/20 - Improving (25.3 sec ) Four Impairment Tinetti Short Term Goal (STG) Pt to score at least 20/28 on Tinetti Balance Assessment STG Duration Met Detention Goal (LTG) Pt to score at least 24/28 on Tinetti Balance Assessment LTG Duration 07/09/20 Three Impairment LE MMT Short Term Goal (STG) Pt LE MMT grossly to 4/5 in order to improve balance and activity tolerance STG Duration Met Filler In Goal (LTG) Pt LE MMT grossly to 4+/5 in order to improve balance and activity tolerance LTG Duration 07/09/20 Two Impairment Gait speed of 0.85 ft/sec during two minute walk test Short Term Goal (STG) Pt gait speed to 1.2 ft/sec (2 MWT distance of 144'). STG Duration 05/28/20 - Improving (1.09 ft/ sec) Filler In Goal (LTG) Pt gait speed to 1.6 ft/sec (2 MWT distance of 192'). A gait speed of less than 1.97 indicates a greater likelihood of further functional decline in older adults LTG Duration 07/09/20 One Impairment Pt does not have an appropriate home exercise program Short Term Goal (STG) Pt to be independent and compliant with an appropriate HEP STG Duration 05/28/20 - Compliance improving Assessment Summary Assessment Pt reported not doing well today, 2/10 LBP and L hip pain today, noted in gait speed today, improved post manual STMs and gentle traction then instruction of LTRs for increased core and LS mobility with good results. I feel alot better now, that really helped. Physical Therapy Plan Frequency and Duration Frequency of Treatment 2x/Week Duration of Treatment 3 months Plan of Care Start Date 04/09/20 Plan of Care End Date 07/09/20 Therapeutic Interventions Therapeutic Interventions Aquatic Therapy,Balance Training,Home Exercise Program ,Neuromuscular Re-education, Patient/Caregiver Education, Self-Care/Home Management,Soft Tissue Mobilization, Therapeutic Activities, Therapeutic Exercises Discharge Physical Therapy Discharge Reasons Plateau in Progress Next Visit Focus/Plan Next Note Type Treatment Note Next Visit Plan provide HEP next visit
--- NOTE | 2020-05-14 10:30 | PT.OTN ---
Current Diagnoses Cerebral infarction, unspecified (05/14/20) Muscle weakness (generalized) (05/14/20) Other abnormalities of gait and mobility (05/14/20) Physical Therapy Treatment Note PT-OP-A Visit Information Start: 03/13/19 11:58 Freq: Status: Active Protocol: Document 05/14/20 09:49 SP (Rec: 05/14/20 12:15 SP [id number]) Out-Patient Physical Therapy Visit Information Visit Information Visit Type Treatment Note Visit Start Time 09:49 Visit Stop Time 10:30 Total Visit Minutes 41 Visit Number 53 Number of RETAIL BAKERY MANAGER Visits 2 PT-OP-B Current Condition Start: 03/13/19 11:58 Freq: Status: Active Protocol: Document 03/13/19 11:15 DCW (Rec: 03/13/19 12:27 DCW [id number]) Current Condition History of Current Condition Onset Date Multi-year history Current Complaints Fatigue, weakness, imbalance, decreased gait speed History of Current Condition Pt is a 78 year old female well known to this clinic presenting with what she calls a loss of ground following her last round of physical therapy earlier in the year. Pt has a history of 5 separate CVAs, and feels her largest problem is her very slow gait speed, as well as weakness. Her slow gait speed is a long- standing issue which has previously been addressed at physical therapy, and she has shown some improvement, but typically does not perform a lot of HEP following discharge , and typically then regresses . Pt does note she has been working with a bilingual trainer in the local pool, and has begun attending gentle yoga classes, as well as a dancing class for people with disabilities. Prior Treatments and Tests Multiple rounds of physical therapy Treatment Goals Patient/Caregiver Goals Improve strengh and gait speed Prior Functional Status Baseline Function- ADL's Needs Assist Baseline Function- Mobility Needs Assist Baseline Function- Gait Very slow gait with bilateral walking sticks PT-OP-C Subjective Start: 03/13/19 11:58 Freq: Status: Active Protocol: Document 05/14/20 09:49 SP (Rec: 05/14/20 12:15 SP [id number]) OP-PT Subjective Patient Comments Patient Comments Pt reported no hip pain since last tx, no LBP currently but last night it hurt alot. PT-OP-D Balance Start: 03/13/19 11:58 Freq: Status: Active Protocol: Document 04/09/20 16:45 DCW (Rec: 04/09/20 17:20 DCW [id number]) OP-PT Balance Assessment Sitting Balance Static Sitting Balance Ability Good Dynamic Sitting Balance Ability Good Standing Balance Static Standing Balance Ability Good Dynamic Standing Balance Ability Fair Tinetti Balance Assessment Sitting Balance Sitting Balance Steady, safe Arising from Chair Ability to Arise Able, uses arms to help Attempts to Arise Arises on 1st attempt Standing Balance Immediate Standing Balance Steady with support Standing Balance Narrow stance w/o support Nudged Response Steady Standing with Eyes Closed Steady Turning Step Pattern Turning 360 Degrees Discontinuous steps Stability Turning 360 Degrees Steady Sitting Down Sitting Down Uses arms or unsteady Gait and Step Initiation of Gait No hesitancy Right Foot Step Length Does pass stance foot Right Foot Step Height Completely clears floor Left Foot Step Length Does pass stance foot Left Foot Step Height Completely clears floor Step Description Step Symmetry Step length not equal Step Continuity Stopping or discontinuity Gait Description Path Description Straight Trunk Description No sway but posturing Walking Stance Heels together Scoring and Interpretation Tinetti Composite Score (points) 21 Interpretation of Scores At risk for falls (19-24) Tinetti Impairment Rating from Composite 20 to <40% Impaired (Score 17- Score 22) Vann Fall Scale Copyright Permission PT-OP-E Functional Tests Start: 03/13/19 11:58 Freq: Status: Active Protocol: Document 04/09/20 16:45 DCW (Rec: 04/09/20 17:20 DCW [id number]) Functional Tests 2 Minute Walk Test Distance 131' Device Used Bilateral walking sticks Comments 1.09 ft/sec Timed Up and Go (TUG) Score 25.3 Comments 3-trial average (22.65, 25.52, 27.74) TUG Impairment Rating 100% Impaired (Score 20) Tinetti Balance and Gait Assessment Balance Score 12/16 Gait Score 9/12 Composite Score 21/28 Balance Score Impairment Rating 20 to <40% Impaired (Score 10- 12) Gait Score Impairment Rating 20 to <40% Impaired (Score 8-9 ) Composite Score Impairment Rating 20 to <40% Impaired (Score 17- 22) PT-OP-M Strength Start: 03/13/19 11:58 Freq: Status: Active Protocol: Document 04/09/20 16:45 DCW (Rec: 04/09/20 17:20 DCW [id number]) Hip Strength Hip Manual Muscle Testing Right Flexion (L2) 4 Good Abduction 4+ Good+ Adduction 4 Good Left Flexion (L2) 4+ Good+ Abduction 4+ Good+ Adduction 4+ Good+ Knee Strength Knee Manual Muscle Testing Right Flexion (S2) 4+ Good+ Extension (L3) 4+ Good+ Left Flexion (S2) 4 Good Extension (L3) 4+ Good+ Ankle/Foot Strength Ankle and Foot Manual Muscle Testing Right Dorsiflexion (L4) 4+ Good+ Plantarflexion (S1) 4 Good Left Dorsiflexion (L4) 4+ Good+ Plantarflexion (S1) 4 Good PT-OP-Q Treatments Start: 03/13/19 11:58 Freq: Status: Active Protocol: Document 05/14/20 09:49 SP (Rec: 05/14/20 12:15 SP [id number]) Therapeutic Exercises Standing Exercises Hurdles Standing Exercise Name Hurdles forward, side stepping Equipment Used // bars Reps/Minutes 10 ft laps x2 each Comments 1 UE contact then 2 walking sticks( unable 1) Gait Training Gait Activity Gait speed training Description 170 ft x2 Device Used Walking sticks Treatment Focus Increased gait speed, increased stride length Comments used metronome at 80 bpm. 153 sec 170 ft. (1.11 ft/sec) at 80 bpm; 294 sec/ 170 ft (1 .72 ft/sec). Neuro Re-Education Treatment Balance Activities NBOS Details WBOS, NBOS, stagger Surface blue foam Equipment //bars for contact if needed Reps/Duration 4 Comments EO, head turn CG- 10 % A PT-OP-T Assessment and Plan Start: 03/13/19 11:58 Freq: Status: Active Protocol: Document 05/14/20 09:49 SP (Rec: 05/14/20 12:15 SP [id number]) Physical Therapy Assessment Goals Five Impairment TUG score of 31.64 seconds [facility] Goal (LTG) Pt to score at least 20 seconds on the TUG LTG Duration 07/09/20 - Improving (25.3 sec ) Four Impairment Tinetti Short Term Goal (STG) Pt to score at least 20/28 on Tinetti Balance Assessment STG Duration Met Plant Attendant Or Assistant Operator Goal (LTG) Pt to score at least 24/28 on Tinetti Balance Assessment LTG Duration 07/09/20 Three Impairment LE MMT Short Term Goal (STG) Pt LE MMT grossly to 4/5 in order to improve balance and activity tolerance STG Duration Met [facility] Goal (LTG) Pt LE MMT grossly to 4+/5 in order to improve balance and activity tolerance LTG Duration 07/09/20 Two Impairment Gait speed of 0.85 ft/sec during two minute walk test Short Term Goal (STG) Pt gait speed to 1.2 ft/sec (2 MWT distance of 144'). STG Duration 05/28/20 - Improving (1.09 ft/ sec) [facility] Goal (LTG) Pt gait speed to 1.6 ft/sec (2 MWT distance of 192'). A gait speed of less than 1.97 indicates a greater likelihood of further functional decline in older adults LTG Duration 07/09/20 One Impairment Pt does not have an appropriate home exercise program Short Term Goal (STG) Pt to be independent and compliant with an appropriate HEP STG Duration 05/28/20 - Compliance improving Assessment Summary Assessment Pt had decreased activity tolerance today requiring 2 standing rest breaks during gait speed activities. Max cuing for increased stride, foot clearance and stride timing, improved reduction in 80 bpm to 75 bpm but decreases over all as distance progressed today. Improved stride length and foot clearance after johann activity noted when leaving. Physical Therapy Plan Frequency and Duration Frequency of Treatment 2x/Week Duration of Treatment 3 months Plan of Care Start Date 04/09/20 Plan of Care End Date 07/09/20 Therapeutic Interventions Therapeutic Interventions Aquatic Therapy,Balance Training,Home Exercise Program ,Neuromuscular Re-education, Patient/Caregiver Education, Self-Care/Home Management,Soft Tissue Mobilization, Therapeutic Activities, Therapeutic Exercises Next Visit Focus/Plan Next Note Type Treatment Note Next Visit Plan Continue to progess strength, balance, endurance for functional mobillity. Continue per PT POC: provide HEP next visit
--- NOTE | 2020-05-18 11:58 | PT.OTN ---
Current Diagnoses Cerebral infarction, unspecified (05/18/20) Muscle weakness (generalized) (05/18/20) Other abnormalities of gait and mobility (05/18/20) Physical Therapy Treatment Note PT-OP-A Visit Information Start: 03/13/19 11:58 Freq: Status: Active Protocol: Document 05/18/20 11:15 DCW (Rec: 05/18/20 11:58 DCW [id number]) Out-Patient Physical Therapy Visit Information Visit Information Visit Type Treatment Note Visit Start Time 11:15 Visit Stop Time 12:00 Total Visit Minutes 45 Visit Number 54 Number of [employer] DRIVER Visits 0 Evaluation Information Evaluation Date 03/13/19 PT-OP-B Current Condition Start: 03/13/19 11:58 Freq: Status: Active Protocol: Document 03/13/19 11:15 DCW (Rec: 03/13/19 12:27 DCW [id number]) Current Condition History of Current Condition Onset Date Multi-year history Current Complaints Fatigue, weakness, imbalance, decreased gait speed History of Current Condition Pt is a 78 year old female well known to this clinic presenting with what she calls a loss of ground following her last round of physical therapy earlier in the year. Pt has a history of 5 separate CVAs, and feels her largest problem is her very slow gait speed, as well as weakness. Her slow gait speed is a long- standing issue which has previously been addressed at physical therapy, and she has shown some improvement, but typically does not perform a lot of HEP following discharge , and typically then regresses . Pt does note she has been working with a hop trainer in the local pool, and has begun attending gentle yoga classes, as well as a dancing class for people with disabilities. Prior Treatments and Tests Multiple rounds of physical therapy Treatment Goals Patient/Caregiver Goals Improve strengh and gait speed Prior Functional Status Baseline Function- ADL's Needs Assist Baseline Function- Mobility Needs Assist Baseline Function- Gait Very slow gait with bilateral walking sticks PT-OP-C Subjective Start: 03/13/19 11:58 Freq: Status: Active Protocol: Document 05/18/20 11:15 DCW (Rec: 05/18/20 11:58 DCW [id number]) OP-PT Subjective Patient Comments Patient Comments Pt reports she is doing pretty well today. PT-OP-D Balance Start: 08/28/19 11:58 Freq: Status: Active Protocol: Document 04/09/20 16:45 DCW (Rec: 04/09/20 17:20 DCW [id number]) OP-PT Balance Assessment Sitting Balance Static Sitting Balance Ability Good Dynamic Sitting Balance Ability Good Standing Balance Static Standing Balance Ability Good Dynamic Standing Balance Ability Fair Tinetti Balance Assessment Sitting Balance Sitting Balance Steady, safe Arising from Chair Ability to Arise Able, uses arms to help Attempts to Arise Arises on 1st attempt Standing Balance Immediate Standing Balance Steady with support Standing Balance Narrow stance w/o support Nudged Response Steady Standing with Eyes Closed Steady Turning Step Pattern Turning 360 Degrees Discontinuous steps Stability Turning 360 Degrees Steady Sitting Down Sitting Down Uses arms or unsteady Gait and Step Initiation of Gait No hesitancy Right Foot Step Length Does pass stance foot Right Foot Step Height Completely clears floor Left Foot Step Length Does pass stance foot Left Foot Step Height Completely clears floor Step Description Step Symmetry Step length not equal Step Continuity Stopping or discontinuity Gait Description Path Description Straight Trunk Description No sway but posturing Walking Stance Heels together Scoring and Interpretation Tinetti Composite Score (points) 21 Interpretation of Scores At risk for falls (19-24) Tinetti Impairment Rating from Composite 20 to <40% Impaired (Score 17- Score 22) Vann Fall Scale Copyright Permission PT-OP-E Functional Tests Start: 03/13/19 11:58 Freq: Status: Active Protocol: Document 04/09/20 16:45 DCW (Rec: 04/09/20 17:20 DCW [id number]) Functional Tests 2 Minute Walk Test Distance 131' Device Used Bilateral walking sticks Comments 1.09 ft/sec Timed Up and Go (TUG) Score 25.3 Comments 3-trial average (22.65, 25.52, 27.74) TUG Impairment Rating 100% Impaired (Score 20) Tinetti Balance and Gait Assessment Balance Score 12/16 Gait Score 9/12 Composite Score 21/28 Balance Score Impairment Rating 20 to <40% Impaired (Score 10- 12) Gait Score Impairment Rating 20 to <40% Impaired (Score 8-9 ) Composite Score Impairment Rating 20 to <40% Impaired (Score 17- 22) PT-OP-M Strength Start: 03/13/19 11:58 Freq: Status: Active Protocol: Document 04/09/20 16:45 DCW (Rec: 04/09/20 17:20 DCW [id number]) Hip Strength Hip Manual Muscle Testing Right Flexion (L2) 4 Good Abduction 4+ Good+ Adduction 4 Good Left Flexion (L2) 4+ Good+ Abduction 4+ Good+ Adduction 4+ Good+ Knee Strength Knee Manual Muscle Testing Right Flexion (S2) 4+ Good+ Extension (L3) 4+ Good+ Left Flexion (S2) 4 Good Extension (L3) 4+ Good+ Ankle/Foot Strength Ankle and Foot Manual Muscle Testing Right Dorsiflexion (L4) 4+ Good+ Plantarflexion (S1) 4 Good Left Dorsiflexion (L4) 4+ Good+ Plantarflexion (S1) 4 Good PT-OP-Q Treatments Start: 03/13/19 11:58 Freq: Status: Active Protocol: Document 05/18/20 11:15 DCW (Rec: 05/18/20 11:58 [facility] [id number]) Cardio Equipment Recumbent Elliptical (Biodex) Duration (Minutes) 4 Resistance 3 Seat Position 9 Therapeutic Exercises Standing Exercises Hurdles Standing Exercise Name Hurdles forward, side stepping Equipment Used // bars Reps/Minutes 10 ft laps x2 each Comments 1 UE contact then 2 walking sticks( unable 1) Gait Training Gait Activity Stride length Description Step count over specific distance Device Used Walking sticks Distance/Duration 20' course Comments # of steps: 14->12->14->12->13 ->12 Gait speed training Description 170 ft x2 Device Used Walking sticks Treatment Focus Increased gait speed, increased stride length Comments used metronome at 80 bpm. 208. 94 (0.81 ft/sec, 2 standing rest breaks); 258.81 (0.66 ft /sec, 3 standing rest breaks). Timer continued during rest breaks. PT-OP-T Assessment and Plan Start: 03/13/19 11:58 Freq: Status: Active Protocol: Document 05/18/20 11:15 DCW (Rec: 05/18/20 11:58 LAW [id number]) Physical Therapy Assessment Goals Five Impairment TUG score of 31.64 seconds Skilled Nursing Goal (LTG) Pt to score at least 20 seconds on the TUG LTG Duration 07/09/20 - Improving (25.3 sec ) Four Impairment Tinetti Short Term Goal (STG) Pt to score at least 20/28 on Tinetti Balance Assessment STG Duration Met Skilled Nursing Goal (LTG) Pt to score at least 24/28 on Tinetti Balance Assessment LTG Duration 07/09/20 Three Impairment LE MMT Short Term Goal (STG) Pt LE MMT grossly to 4/5 in order to improve balance and activity tolerance STG Duration Met Mix Crusher Operator Goal (LTG) Pt LE MMT grossly to 4+/5 in order to improve balance and activity tolerance LTG Duration 07/09/20 Two Impairment Gait speed of 0.85 ft/sec during two minute walk test Short Term Goal (STG) Pt gait speed to 1.2 ft/sec (2 MWT distance of 144'). STG Duration 05/28/20 - Improving (1.09 ft/ sec) Skilled Nursing Goal (LTG) Pt gait speed to 1.6 ft/sec (2 MWT distance of 192'). A gait speed of less than 1.97 indicates a greater likelihood of further functional decline in older adults LTG Duration 07/09/20 One Impairment Pt does not have an appropriate home exercise program Short Term Goal (STG) Pt to be independent and compliant with an appropriate HEP STG Duration 05/28/20 - Compliance improving Assessment Summary Assessment Pt has just been declining in function and activity tolerance so much the past few visits that it has been difficult to get any activity completed. If pt does not display significant improvement over the next two weeks, she may need to be discharged. Physical Therapy Plan Frequency and Duration Frequency of Treatment 2x/Week Duration of Treatment 3 months Plan of Care Start Date 04/09/20 Plan of Care End Date 07/09/20 Therapeutic Interventions Therapeutic Interventions Aquatic Therapy,Balance Training,Home Exercise Program ,Neuromuscular Re-education, Patient/Caregiver Education, Self-Care/Home Management,Soft Tissue Mobilization, Therapeutic Activities, Therapeutic Exercises Next Visit Focus/Plan Next Note Type Treatment Note Next Visit Plan Continue to progress strength, balance, endurance for functional mobility. Continue per PT POC: provide HEP next visit
--- NOTE | 2020-05-20 11:57 | PT.OTN ---
Current Diagnoses Cerebral infarction, unspecified (05/20/20) Muscle weakness (generalized) (05/20/20) Other abnormalities of gait and mobility (05/20/20) Physical Therapy Treatment Note PT-OP-A Visit Information Start: 03/13/19 11:58 Freq: Status: Active Protocol: Document 05/20/20 11:15 DCW (Rec: 05/20/20 11:57 DCW [id number]) Out-Patient Physical Therapy Visit Information Visit Information Visit Type Treatment Note Visit Start Time 11:15 Visit Stop Time 12:00 Total Visit Minutes 45 Visit Number 55 Number of HEAT SEALING MACHINE OPERATOR Visits 0 Evaluation Information Evaluation Date 03/13/19 PT-OP-B Current Condition Start: 03/13/19 11:58 Freq: Status: Active Protocol: Document 03/13/19 11:15 DCW (Rec: 03/13/19 12:27 DCW [id number]) Current Condition History of Current Condition Onset Date Multi-year history Current Complaints Fatigue, weakness, imbalance, decreased gait speed History of Current Condition Pt is a 78 year old female well known to this clinic presenting with what she calls a loss of ground following her last round of physical therapy earlier in the year. Pt has a history of 5 separate CVAs, and feels her largest problem is her very slow gait speed, as well as weakness. Her slow gait speed is a long- standing issue which has previously been addressed at physical therapy, and she has shown some improvement, but typically does not perform a lot of HEP following discharge , and typically then regresses . 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 Prior Treatments and Tests Multiple rounds of physical therapy Treatment Goals Patient/Caregiver Goals Improve strengh and gait speed Prior Functional Status Baseline Function- ADL's Needs Assist Baseline Function- Mobility Needs Assist Baseline Function- Gait Very slow gait with bilateral walking sticks PT-OP-C Subjective Start: 03/13/19 11:58 Freq: Status: Active Protocol: Document 05/20/20 11:15 DCW (Rec: 05/20/20 11:57 DCW [id number]) OP-PT Subjective Patient Comments Patient Comments Pt reports her right ankle is hurting this morning. PT-OP-D Balance Start: 03/13/19 11:58 Freq: Status: Active Protocol: Document 04/09/20 16:45 DCW (Rec: 04/09/20 17:20 DCW [id number]) OP-PT Balance Assessment Sitting Balance Static Sitting Balance Ability Good Dynamic Sitting Balance Ability Good Standing Balance Static Standing Balance Ability Good Dynamic Standing Balance Ability Fair Tinetti Balance Assessment Sitting Balance Sitting Balance Steady, safe Arising from Chair Ability to Arise Able, uses arms to help Attempts to Arise Arises on 1st attempt Standing Balance Immediate Standing Balance Steady with support Standing Balance Narrow stance w/o support Nudged Response Steady Standing with Eyes Closed Steady Turning Step Pattern Turning 360 Degrees Discontinuous steps Stability Turning 360 Degrees Steady Sitting Down Sitting Down Uses arms or unsteady Gait and Step Initiation of Gait No hesitancy Right Foot Step Length Does pass stance foot Right Foot Step Height Completely clears floor Left Foot Step Length Does pass stance foot Left Foot Step Height Completely clears floor Step Description Step Symmetry Step length not equal Step Continuity Stopping or discontinuity Gait Description Path Description Straight Trunk Description No sway but posturing Walking Stance Heels together Scoring and Interpretation Tinetti Composite Score (points) 21 Interpretation of Scores At risk for falls (19-24) Tinetti Impairment Rating from Composite 20 to <40% Impaired (Score 17- Score 22) Vann Fall Scale Copyright Permission PT-OP-E Functional Tests Start: 03/13/19 11:58 Freq: Status: Active Protocol: Document 04/09/20 16:45 DCW (Rec: 04/09/20 17:20 DCW [id number]) Functional Tests 2 Minute Walk Test Distance 131' Device Used Bilateral walking sticks Comments 1.09 ft/sec Timed Up and Go (TUG) Score 25.3 Comments 3-trial average (22.65, 25.52, 27.74) TUG Impairment Rating 100% Impaired (Score 20) Tinetti Balance and Gait Assessment Balance Score 12/16 Gait Score 9/12 Composite Score 21/28 Balance Score Impairment Rating 20 to <40% Impaired (Score 10- 12) Gait Score Impairment Rating 20 to <40% Impaired (Score 8-9 ) Composite Score Impairment Rating 20 to <40% Impaired (Score 17- 22) PT-OP-M Strength Start: 03/13/19 11:58 Freq: Status: Active Protocol: Document 04/09/20 16:45 DCW (Rec: 04/09/20 17:20 DCW [id number]) Hip Strength Hip Manual Muscle Testing Right Flexion (L2) 4 Good Abduction 4+ Good+ Adduction 4 Good Left Flexion (L2) 4+ Good+ Abduction 4+ Good+ Adduction 4+ Good+ Knee Strength Knee Manual Muscle Testing Right Flexion (S2) 4+ Good+ Extension (L3) 4+ Good+ Left Flexion (S2) 4 Good Extension (L3) 4+ Good+ Ankle/Foot Strength Ankle and Foot Manual Muscle Testing Right Dorsiflexion (L4) 4+ Good+ Plantarflexion (S1) 4 Good Left Dorsiflexion (L4) 4+ Good+ Plantarflexion (S1) 4 Good PT-OP-Q Treatments Start: 03/13/19 11:58 Freq: Status: Active Protocol: Document 05/20/20 11:15 DCW (Rec: 05/20/20 11:57 DCW [id number]) Cardio Equipment Recumbent Elliptical (Biodex) Duration (Minutes) 5 Resistance 3 Seat Position 9 Therapeutic Exercises Other Exercises Side-stepping Resistance Yellow theraband loop Reps/Minutes 10 feet x 2 sit<->stand Equipment Used 18 chair Reps/Minutes 2 reps 20 sec, completed 5 total Comments cued hip hinge foward and use BUE (retro lean CGA) Gait Training Gait Activity Stride length Description Step count over specific distance Device Used Walking sticks Distance/Duration 20' course Comments # of steps: 12->12->13->13->12 ->12 Gait speed training Description 170 ft x2 Device Used Walking sticks Treatment Focus Increased gait speed, increased stride length Comments used metronome at 80 bpm. 155. 52 (1.09 ft/sec, 1 standing rest breaks); 196.35 (0.86 ft /sec, 2 standing rest breaks). Timer continued during rest breaks. PT-OP-T Assessment and Plan Start: 03/13/19 11:58 Freq: Status: Active Protocol: Document 05/20/20 11:15 DCW (Rec: 05/20/20 11:57 DCW [id number]) Physical Therapy Assessment Goals Five Impairment TUG score of 31.64 seconds Mcc Goal (LTG) Pt to score at least 20 seconds on the TUG LTG Duration 07/09/20 - Improving (25.3 sec ) Four Impairment Tinetti Short Term Goal (STG) Pt to score at least 20/28 on Tinetti Balance Assessment STG Duration Met Special Population Paraprofessional Goal (LTG) Pt to score at least 24/28 on Tinetti Balance Assessment LTG Duration 07/09/20 Three Impairment LE MMT Short Term Goal (STG) Pt LE MMT grossly to 4/5 in order to improve balance and activity tolerance STG Duration Met Special Population Paraprofessional Goal (LTG) Pt LE MMT grossly to 4+/5 in order to improve balance and activity tolerance LTG Duration 07/09/20 Two Impairment Gait speed of 0.85 ft/sec during two minute walk test Short Term Goal (STG) Pt gait speed to 1.2 ft/sec (2 MWT distance of 144'). STG Duration 05/28/20 - Improving (1.09 ft/ sec) Mcc Goal (LTG) Pt gait speed to 1.6 ft/sec (2 MWT distance of 192'). A gait speed of less than 1.97 indicates a greater likelihood of further functional decline in older adults LTG Duration 07/09/20 One Impairment Pt does not have an appropriate home exercise program Short Term Goal (STG) Pt to be independent and compliant with an appropriate HEP STG Duration 05/28/20 - Compliance improving Assessment Summary Assessment Pt had a slightly better day today, still difficult to get much done in a session due to fatigue and slow movement. Physical Therapy Plan Frequency and Duration Frequency of Treatment 2x/Week Duration of Treatment 3 months Plan of Care Start Date 04/09/20 Plan of Care End Date 07/09/20 Therapeutic Interventions Therapeutic Interventions Aquatic Therapy,Balance Training,Home Exercise Program ,Neuromuscular Re-education, Patient/Caregiver Education, Self-Care/Home Management,Soft Tissue Mobilization, Therapeutic Activities, Therapeutic Exercises Next Visit Focus/Plan Next Note Type Treatment Note Next Visit Plan Continue to progess strength, balance, endurance for functional mobillity. Continue per PT POC: provide HEP next visit
--- NOTE | 2020-05-25 12:01 | PT.OTN ---
Current Diagnoses Cerebral infarction, unspecified (05/25/20) Muscle weakness (generalized) (05/25/20) Other abnormalities of gait and mobility (05/25/20) Physical Therapy Treatment Note PT-OP-A Visit Information Start: 03/13/19 11:58 Freq: Status: Active Protocol: Document 05/25/20 11:17 DCW (Rec: 05/25/20 12:00 DCW [id number]) Out-Patient Physical Therapy Visit Information Visit Information Visit Type Treatment Note Visit Start Time 11:17 Visit Stop Time 12:00 Total Visit Minutes 43 Visit Number 56 Number of ASSOCIATE DIRECTOR QA Visits 0 Evaluation Information Evaluation Date 03/13/19 PT-OP-B Current Condition Start: 03/13/19 11:58 Freq: Status: Active Protocol: Document 03/13/19 11:15 DCW (Rec: 03/13/19 12:27 DCW [id number]) Current Condition History of Current Condition Onset Date Multi-year history Current Complaints Fatigue, weakness, imbalance, decreased gait speed History of Current Condition Pt is a 78 year old female well known to this clinic presenting with what she calls a loss of ground following her last round of physical therapy earlier in the year. Pt has a history of 5 separate CVAs, and feels her largest problem is her very slow gait speed, as well as weakness. Her slow gait speed is a long- standing issue which has previously been addressed at physical therapy, and she has shown some improvement, but typically does not perform a lot of HEP following discharge , and typically then regresses . Pt does note she has been working with a vocational trainer in the local pool, and has begun attending gentle yoga classes, as well as a dancing class for people with disabilities. Prior Treatments and Tests Multiple rounds of physical therapy Treatment Goals Patient/Caregiver Goals Improve strengh and gait speed Prior Functional Status Baseline Function- ADL's Needs Assist Baseline Function- Mobility Needs Assist Baseline Function- Gait Very slow gait with bilateral walking sticks PT-OP-C Subjective Start: 03/13/19 11:58 Freq: Status: Active Protocol: Document 05/25/20 11:17 DCW (Rec: 05/25/20 12:00 DCW [id number]) OP-PT Subjective Patient Comments Patient Comments Pt notes she is cold and slow today. PT-OP-D Balance Start: 03/13/19 11:58 Freq: Status: Active Protocol: Document 04/09/20 16:45 DCW (Rec: 04/09/20 17:20 DCW [id number]) OP-PT Balance Assessment Sitting Balance Static Sitting Balance Ability Good Dynamic Sitting Balance Ability Good Standing Balance Static Standing Balance Ability Good Dynamic Standing Balance Ability Fair Tinetti Balance Assessment Sitting Balance Sitting Balance Steady, safe Arising from Chair Ability to Arise Able, uses arms to help Attempts to Arise Arises on 1st attempt Standing Balance Immediate Standing Balance Steady with support Standing Balance Narrow stance w/o support Nudged Response Steady Standing with Eyes Closed Steady Turning Step Pattern Turning 360 Degrees Discontinuous steps Stability Turning 360 Degrees Steady Sitting Down Sitting Down Uses arms or unsteady Gait and Step Initiation of Gait No hesitancy Right Foot Step Length Does pass stance foot Right Foot Step Height Completely clears floor Left Foot Step Length Does pass stance foot Left Foot Step Height Completely clears floor Step Description Step Symmetry Step length not equal Step Continuity Stopping or discontinuity Gait Description Path Description Straight Trunk Description No sway but posturing Walking Stance Heels together Scoring and Interpretation Tinetti Composite Score (points) 21 Interpretation of Scores At risk for falls (19-24) Tinetti Impairment Rating from Composite 20 to <40% Impaired (Score 17- Score 22) Vann Fall Scale Copyright Permission PT-OP-E Functional Tests Start: 03/13/19 11:58 Freq: Status: Active Protocol: Document 04/09/20 16:45 DCW (Rec: 04/09/20 17:20 DCW [id number]) Functional Tests 2 Minute Walk Test Distance 131' Device Used Bilateral walking sticks Comments 1.09 ft/sec Timed Up and Go (TUG) Score 25.3 Comments 3-trial average (22.65, 25.52, 27.74) TUG Impairment Rating 100% Impaired (Score 20) Tinetti Balance and Gait Assessment Balance Score 12/16 Gait Score 9/12 Composite Score 21/28 Balance Score Impairment Rating 20 to <40% Impaired (Score 10- 12) Gait Score Impairment Rating 20 to <40% Impaired (Score 8-9 ) Composite Score Impairment Rating 20 to <40% Impaired (Score 17- 22) PT-OP-M Strength Start: 03/13/19 11:58 Freq: Status: Active Protocol: Document 04/09/20 16:45 DCW (Rec: 04/09/20 17:20 DCW [id number]) Hip Strength Hip Manual Muscle Testing Right Flexion (L2) 4 Good Abduction 4+ Good+ Adduction 4 Good Left Flexion (L2) 4+ Good+ Abduction 4+ Good+ Adduction 4+ Good+ Knee Strength Knee Manual Muscle Testing Right Flexion (S2) 4+ Good+ Extension (L3) 4+ Good+ Left Flexion (S2) 4 Good Extension (L3) 4+ Good+ Ankle/Foot Strength Ankle and Foot Manual Muscle Testing Right Dorsiflexion (L4) 4+ Good+ Plantarflexion (S1) 4 Good Left Dorsiflexion (L4) 4+ Good+ Plantarflexion (S1) 4 Good PT-OP-Q Treatments Start: 03/13/19 11:58 Freq: Status: Active Protocol: Document 05/25/20 11:17 DCW (Rec: 05/25/20 12:00 NYW [id number]) Cardio Equipment Recumbent Elliptical (Biodex) Duration (Minutes) 5 Resistance 3 Seat Position 9 Therapeutic Exercises Standing Exercises Hurdles Standing Exercise Name Hurdles forward, side stepping Equipment Used // bars Reps/Minutes 10 ft laps x2 each Comments 1 UE contact then 2 walking sticks( unable 1) Gait Training Gait Activity Stride length Description Step count over specific distance Device Used Walking sticks Distance/Duration 20' course Comments # of steps: 13->12->11->13->12 ->12 Gait speed training Description 170 ft x2 Device Used Walking sticks Treatment Focus Increased gait speed, increased stride length Comments used metronome at 80 bpm. 173. 10 (0.98 ft/sec); 151.45 (1. 12 ft/sec, 1 standing rest break). Timer continued during rest break. PT-OP-T Assessment and Plan Start: 03/13/19 11:58 Freq: Status: Active Protocol: Document 05/25/20 11:17 DCW (Rec: 05/25/20 12:00 DCW [id number]) Physical Therapy Assessment Goals Five Impairment TUG score of 31.64 seconds Re Recording Mixer Goal (LTG) Pt to score at least 20 seconds on the TUG LTG Duration 07/09/20 - Improving (25.3 sec ) Four Impairment Tinetti Short Term Goal (STG) Pt to score at least 20/28 on Tinetti Balance Assessment STG Duration Met Re Recording Mixer Goal (LTG) Pt to score at least 24/28 on Tinetti Balance Assessment LTG Duration 07/09/20 Three Impairment LE MMT Short Term Goal (STG) Pt LE MMT grossly to 4/5 in order to improve balance and activity tolerance STG Duration Met Re Recording Mixer Goal (LTG) Pt LE MMT grossly to 4+/5 in order to improve balance and activity tolerance LTG Duration 07/09/20 Two Impairment Gait speed of 0.85 ft/sec during two minute walk test Short Term Goal (STG) Pt gait speed to 1.2 ft/sec (2 MWT distance of 144'). STG Duration 05/28/20 - Improving (1.09 ft/ sec) Group Home Goal (LTG) Pt gait speed to 1.6 ft/sec (2 MWT distance of 192'). A gait speed of less than 1.97 indicates a greater likelihood of further functional decline in older adults LTG Duration 07/09/20 One Impairment Pt does not have an appropriate home exercise program Short Term Goal (STG) Pt to be independent and compliant with an appropriate HEP STG Duration 05/28/20 - Compliance improving Assessment Summary Assessment Pt still largely unchanged, struggles to maintain any relatively faster pace more than ~1 ft/sec. Physical Therapy Plan Frequency and Duration Frequency of Treatment 2x/Week Duration of Treatment 3 months Plan of Care Start Date 04/09/20 Plan of Care End Date 07/09/20 Therapeutic Interventions Therapeutic Interventions Aquatic Therapy,Balance Training,Home Exercise Program ,Neuromuscular Re-education, Patient/Caregiver Education, Self-Care/Home Management,Soft Tissue Mobilization, Therapeutic Activities, Therapeutic Exercises Next Visit Focus/Plan Next Note Type Treatment Note Next Visit Plan Continue to progess strength, balance, endurance for functional mobillity. Continue per PT POC: provide HEP next visit
--- NOTE | 2020-05-27 12:01 | PT.OTN ---
Current Diagnoses Cerebral infarction, unspecified (05/27/20) Muscle weakness (generalized) (05/27/20) Other abnormalities of gait and mobility (05/27/20) Physical Therapy Treatment Note PT-OP-A Visit Information Start: 03/13/19 11:58 Freq: Status: Active Protocol: Document 05/27/20 11:15 DCW (Rec: 05/27/20 12:01 DCW [id number]) Out-Patient Physical Therapy Visit Information Visit Information Visit Type Treatment Note Visit Start Time 11:15 Visit Stop Time 12:00 Total Visit Minutes 45 Visit Number 57 Number of CLOTH COLORER Visits 0 Evaluation Information Evaluation Date 03/13/19 PT-OP-B Current Condition Start: 03/13/19 11:58 Freq: Status: Active Protocol: Document 03/13/19 11:15 DCW (Rec: 03/13/19 12:27 DCW [id number]) Current Condition History of Current Condition Onset Date Multi-year history Current Complaints Fatigue, weakness, imbalance, decreased gait speed History of Current Condition Pt is a 78 year old female well known to this clinic presenting with what she calls a loss of ground following her last round of physical therapy earlier in the year. Pt has a history of 5 separate CVAs, and feels her largest problem is her very slow gait speed, as well as weakness. Her slow gait speed is a long- standing issue which has previously been addressed at physical therapy, and she has shown some improvement, but typically does not perform a lot of HEP following discharge , and typically then regresses . 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 Prior Treatments and Tests Multiple rounds of physical therapy Treatment Goals Patient/Caregiver Goals Improve strengh and gait speed Prior Functional Status Baseline Function- ADL's Needs Assist Baseline Function- Mobility Needs Assist Baseline Function- Gait Very slow gait with bilateral walking sticks PT-OP-C Subjective Start: 03/13/19 11:58 Freq: Status: Active Protocol: Document 05/27/20 11:15 DCW (Rec: 05/27/20 12:01 DCW [id number]) OP-PT Subjective Patient Comments Patient Comments Pt's had a procedure to eliminate his A-fib yesterday, and is still in the hospital, so pt is a little worried about him, but is feeling hopeful that it worked . PT-OP-D Balance Start: 03/13/19 11:58 Freq: Status: Active Protocol: Document 04/09/20 16:45 DCW (Rec: 04/09/20 17:20 DCW [id number]) OP-PT Balance Assessment Sitting Balance Static Sitting Balance Ability Good Dynamic Sitting Balance Ability Good Standing Balance Static Standing Balance Ability Good Dynamic Standing Balance Ability Fair Tinetti Balance Assessment Sitting Balance Sitting Balance Steady, safe Arising from Chair Ability to Arise Able, uses arms to help Attempts to Arise Arises on 1st attempt Standing Balance Immediate Standing Balance Steady with support Standing Balance Narrow stance w/o support Nudged Response Steady Standing with Eyes Closed Steady Turning Step Pattern Turning 360 Degrees Discontinuous steps Stability Turning 360 Degrees Steady Sitting Down Sitting Down Uses arms or unsteady Gait and Step Initiation of Gait No hesitancy Right Foot Step Length Does pass stance foot Right Foot Step Height Completely clears floor Left Foot Step Length Does pass stance foot Left Foot Step Height Completely clears floor Step Description Step Symmetry Step length not equal Step Continuity Stopping or discontinuity Gait Description Path Description Straight Trunk Description No sway but posturing Walking Stance Heels together Scoring and Interpretation Tinetti Composite Score (points) 21 Interpretation of Scores At risk for falls (19-24) Tinetti Impairment Rating from Composite 20 to <40% Impaired (Score 17- Score 22) Vann Fall Scale Copyright Permission PT-OP-E Functional Tests Start: 03/13/19 11:58 Freq: Status: Active Protocol: Document 04/09/20 16:45 DCW (Rec: 04/09/20 17:20 DCW [id number]) Functional Tests 2 Minute Walk Test Distance 131' Device Used Bilateral walking sticks Comments 1.09 ft/sec Timed Up and Go (TUG) Score 25.3 Comments 3-trial average (22.65, 25.52, 27.74) TUG Impairment Rating 100% Impaired (Score 20) Tinetti Balance and Gait Assessment Balance Score 12/16 Gait Score 9/12 Composite Score 21/28 Balance Score Impairment Rating 20 to <40% Impaired (Score 10- 12) Gait Score Impairment Rating 20 to <40% Impaired (Score 8-9 ) Composite Score Impairment Rating 20 to <40% Impaired (Score 17- 22) PT-OP-M Strength Start: 03/13/19 11:58 Freq: Status: Active Protocol: Document 04/09/20 16:45 DCW (Rec: 04/09/20 17:20 DCW [id number]) Hip Strength Hip Manual Muscle Testing Right Flexion (L2) 4 Good Abduction 4+ Good+ Adduction 4 Good Left Flexion (L2) 4+ Good+ Abduction 4+ Good+ Adduction 4+ Good+ Knee Strength Knee Manual Muscle Testing Right Flexion (S2) 4+ Good+ Extension (L3) 4+ Good+ Left Flexion (S2) 4 Good Extension (L3) 4+ Good+ Ankle/Foot Strength Ankle and Foot Manual Muscle Testing Right Dorsiflexion (L4) 4+ Good+ Plantarflexion (S1) 4 Good Left Dorsiflexion (L4) 4+ Good+ Plantarflexion (S1) 4 Good PT-OP-Q Treatments Start: 03/13/19 11:58 Freq: Status: Active Protocol: Document 05/27/20 11:15 DCW (Rec: 05/27/20 12:01 DCW [id number]) Cardio Equipment Recumbent Elliptical (BiodMr. Number) Duration (Minutes) 5 Resistance 3 Seat Position 9 Therapeutic Exercises Standing Exercises Hurdles Standing Exercise Name Hurdles forward, side stepping Equipment Used // bars Reps/Minutes 10 ft laps x2 each Comments 1 UE contact then 2 walking sticks( unable 1) Other Exercises Side-stepping Resistance Yellow theraband loop Reps/Minutes 10 feet x 2 sit<->stand Equipment Used 18 chair Reps/Minutes 2 reps 20 sec, completed 5 total Comments cued hip hinge foward and use BUE (retro lean CGA) Gait Training Gait Activity Stride length Description Step count over specific distance Device Used Walking sticks Distance/Duration 20' course Comments # of steps: 12->12->11->11->12 ->12 Gait speed training Description 170 ft x2 Device Used Walking sticks Treatment Focus Increased gait speed, increased stride length Comments used metronome at 80 bpm. 190. 26 (0.89 ft/sec, 1 standing rest break); 164.44 (1.03 ft/ sec, 1 standing rest break). Timer continued during rest break. PT-OP-T Assessment and Plan Start: 03/13/19 11:58 Freq: Status: Active Protocol: Document 05/27/20 11:15 DCW (Rec: 05/27/20 12:01 DCW [id number]) Physical Therapy Assessment Goals Five Impairment TUG score of 31.64 seconds Jail Goal (LTG) Pt to score at least 20 seconds on the TUG LTG Duration 07/09/20 - Improving (25.3 sec ) Four Impairment Tinetti Short Term Goal (STG) Pt to score at least 20/28 on Tinetti Balance Assessment STG Duration Met [employer] Ship Goal (LTG) Pt to score at least 24/28 on Tinetti Balance Assessment LTG Duration 07/09/20 Three Impairment LE MMT Short Term Goal (STG) Pt LE MMT grossly to 4/5 in order to improve balance and activity tolerance STG Duration Met Jail Goal (LTG) Pt LE MMT grossly to 4+/5 in order to improve balance and activity tolerance LTG Duration 07/09/20 Two Impairment Gait speed of 0.85 ft/sec during two minute walk test Short Term Goal (STG) Pt gait speed to 1.2 ft/sec (2 MWT distance of 144'). STG Duration 05/28/20 - Improving (1.09 ft/ sec) Jail Goal (LTG) Pt gait speed to 1.6 ft/sec (2 MWT distance of 192'). A gait speed of less than 1.97 indicates a greater likelihood of further functional decline in older adults LTG Duration 07/09/20 One Impairment Pt does not have an appropriate home exercise program Short Term Goal (STG) Pt to be independent and compliant with an appropriate HEP STG Duration 05/28/20 - Compliance improving Assessment Summary Assessment Slightly improved vs Monday, still having difficulty with activity tolerance and stride length. Physical Therapy Plan Frequency and Duration Frequency of Treatment 2x/Week Duration of Treatment 3 months Plan of Care Start Date 04/09/20 Plan of Care End Date 07/09/20 Therapeutic Interventions Therapeutic Interventions Aquatic Therapy,Balance Training,Home Exercise Program ,Neuromuscular Re-education, Patient/Caregiver Education, Self-Care/Home Management,Soft Tissue Mobilization, Therapeutic Activities, Therapeutic Exercises Next Visit Focus/Plan Next Note Type Treatment Note Next Visit Plan Continue to progess strength, balance, endurance for functional mobillity. Continue per PT POC: provide HEP next visit
--- NOTE | 2020-08-27 14:23 | PT.OPDS ---
Current Diagnoses Cerebral infarction, unspecified (05/27/20) Muscle weakness (generalized) (05/27/20) Other abnormalities of gait and mobility (05/27/20) Visit Care Team Role Provider Type Conchita Felipe PA-C Attending Provider [employer] Primary Care Provider Specialty: Internal Medicine [address]: [address] [place] [address], [id number] Email: [email or web address] Visit Number Visit Number 57 Discharge Summary PT-OP-B Current Condition Start: 03/13/19 11:58 Freq: Status: Active Protocol: Document 03/13/19 11:15 DCW (Rec: 03/13/19 12:27 DCW [id number]) Current Condition History of Current Condition Onset Date Multi-year history Current Complaints Fatigue, weakness, imbalance, decreased gait speed History of Current Condition Pt is a 78 year old female well known to this clinic presenting with what she calls a loss of ground following her last round of physical therapy earlier in the year. Pt has a history of 5 separate CVAs, and feels her largest problem is her very slow gait speed, as well as weakness. Her slow gait speed is a long- standing issue which has previously been addressed at physical therapy, and she has shown some improvement, but typically does not perform a lot of HEP following discharge , and typically then regresses . 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 Prior Treatments and Tests Multiple rounds of physical therapy Treatment Goals Patient/Caregiver Goals Improve strengh and gait speed Prior Functional Status Baseline Function- ADL's Needs Assist Baseline Function- Mobility Needs Assist Baseline Function- Gait Very slow gait with bilateral walking sticks PT-OP-C Subjective Start: 03/13/19 11:58 Freq: Status: Active Protocol: Document 05/27/20 11:15 DCW (Rec: 05/27/20 12:01 DCW [id number]) OP-PT Subjective Patient Comments Patient Comments Pt's had a procedure to eliminate his A-fib yesterday, and is still in the hospital, so pt is a little worried about him, but is feeling hopeful that it worked . PT-OP-D Balance Start: 03/13/19 11:58 Freq: Status: Active Protocol: Document 04/09/20 16:45 DCW (Rec: 04/09/20 17:20 DCW [id number]) OP-PT Balance Assessment Sitting Balance Static Sitting Balance Ability Good Dynamic Sitting Balance Ability Good Standing Balance Static Standing Balance Ability Good Dynamic Standing Balance Ability Fair Tinetti Balance Assessment Sitting Balance Sitting Balance Steady, safe Arising from Chair Ability to Arise Able, uses arms to help Attempts to Arise Arises on 1st attempt Standing Balance Immediate Standing Balance Steady with support Standing Balance Narrow stance w/o support Nudged Response Steady Standing with Eyes Closed Steady Turning Step Pattern Turning 360 Degrees Discontinuous steps Stability Turning 360 Degrees Steady Sitting Down Sitting Down Uses arms or unsteady Gait and Step Initiation of Gait No hesitancy Right Foot Step Length Does pass stance foot Right Foot Step Height Completely clears floor Left Foot Step Length Does pass stance foot Left Foot Step Height Completely clears floor Step Description Step Symmetry Step length not equal Step Continuity Stopping or discontinuity Gait Description Path Description Straight Trunk Description No sway but posturing Walking Stance Heels together Scoring and Interpretation Tinetti Composite Score (points) 21 Interpretation of Scores At risk for falls (19-24) Tinetti Impairment Rating from Composite 20 to <40% Impaired (Score 17- Score 22) Vann Fall Scale Copyright Permission PT-OP-E Functional Tests Start: 03/13/19 11:58 Freq: Status: Active Protocol: Document 04/09/20 16:45 DCW (Rec: 04/09/20 17:20 DCW [id number]) Functional Tests 2 Minute Walk Test Distance 131' Device Used Bilateral walking sticks Comments 1.09 ft/sec Timed Up and Go (TUG) Score 25.3 Comments 3-trial average (22.65, 25.52, 27.74) TUG Impairment Rating 100% Impaired (Score 20) Tinetti Balance and Gait Assessment Balance Score 12/16 Gait Score 9/12 Composite Score 21/28 Balance Score Impairment Rating 20 to <40% Impaired (Score 10- 12) Gait Score Impairment Rating 20 to <40% Impaired (Score 8-9 ) Composite Score Impairment Rating 20 to <40% Impaired (Score 17- 22) PT-OP-M Strength Start: 03/13/19 11:58 Freq: Status: Active Protocol: Document 04/09/20 16:45 DCW (Rec: 04/09/20 17:20 [facility] [id number]) Hip Strength Hip Manual Muscle Testing Right Flexion (L2) 4 Good Abduction 4+ Good+ Adduction 4 Good Left Flexion (L2) 4+ Good+ Abduction 4+ Good+ Adduction 4+ Good+ Knee Strength Knee Manual Muscle Testing Right Flexion (S2) 4+ Good+ Extension (L3) 4+ Good+ Left Flexion (S2) 4 Good Extension (L3) 4+ Good+ Ankle/Foot Strength Ankle and Foot Manual Muscle Testing Right Dorsiflexion (L4) 4+ Good+ Plantarflexion (S1) 4 Good Left Dorsiflexion (L4) 4+ Good+ Plantarflexion (S1) 4 Good PT-OP-T Assessment and Plan Start: 03/13/19 11:58 Freq: Status: Active Protocol: Document 08/27/20 14:20 [facility] (Rec: 08/27/20 14:23 [facility] [id number]) Physical Therapy Assessment Assessment Summary Assessment After regular attendence at PT , patient suddenly just had no future visits scheduled and did not schedule any follow-up visits. Pt has now not been seen in three months, and will be discharged at this time. Physical Therapy Plan Discharge Physical Therapy Discharge Reasons No Longer Attending PT
== END 2020-09-01 09:48 ==
LOC: PHYS 11:15
PROVIDERS: PCP Physician Assistant; Visit Provider Physician Assistant
DX: I63.9 Cerebral infarction, unspecified (principal); M62.81 Muscle weakness (generalized); R26.89 Other abnormalities of gait and mobility
CPT/HCPCS: 97110; 97112; 97116; 97140; 97162

== ENCOUNTER → 2020-08-12 10:26 | Outpatient (CLI) | payer MEDICARE, OTHER, SELFPAY ==
[2018-07-13 13:53] VITALS: BMI 25.7
[2020-08-12] MEDS: COVID-19 VACC #1, MRNA(MOD) 100 MCG/0.5 ML VIAL IM (10:45)
== END ==
PROVIDERS: PCP Physician Assistant; Visit Provider Internal Medicine
DX: Z23 Encounter for immunization (principal)
CPT/HCPCS: 0011A; 91301

== ENCOUNTER → 2020-09-09 10:35 | Outpatient (CLI) | payer MEDICARE, OTHER, SELFPAY ==
[2018-07-13 13:53] VITALS: BMI 25.7
[2020-09-09] MEDS: COVID-19 VACC #2, MRNA(MOD) 100 MCG/0.5 ML VIAL IM (10:45)
== END ==
PROVIDERS: PCP Physician Assistant; Visit Provider Internal Medicine
DX: Z23 Encounter for immunization (principal)
CPT/HCPCS: 0012A; 91301

== ENCOUNTER → 2020-09-30 19:39 | Outpatient (ROUT) | payer MEDICARE, OTHER, SELFPAY ==
[2018-07-13 13:53] VITALS: BMI 25.7
[2020-09-30 19:51] LABS: Appearance Urine UA CLEAR; Bilirubin Urine UA NEGATIVE (NEGATIVE); Color Urine UA YELLOW; Glucose Urine UA NEGATIVE (Negative); Ketones Urine UA NEGATIVE (NEGATIVE); Leukocyte Esterase Urine UA NEGATIVE (NEGATIVE); Nitrite Urine UA NEGATIVE (Negative); Occult Blood Urine UA NEGATIVE (Negative); Protein Urine UA NEGATIVE (Negative); Specific Gravity Urine UA >=1.030 (1.000-1.035); Urobilinogen Urine UA 0.2 E.U./dL (0.2)
[2020-09-30 20:06] LABS: pH Urine UA 5.5 (4.5-8.0)
[2020-09-30 20:07] LABS: Amorphous Sediment Urine 2+; Bacteria Urine Occasional (0-1); Mucus Urine 1+ (Negative); RBC Urine 0-1/HPF (0-5/HPF); Squamous Epithelial Cell Urine 0-1 /HPF (0-5/HPF); WBC Urine 5-10/HPF (0-5/HPF)
[2020-09-30 20:08] LABS: Urine Comments CULTURE ORDERED
== END ==
PROVIDERS: PCP Physician Assistant; Visit Provider Physician Assistant
DX: R35.0 Frequency of micturition (principal)
CPT/HCPCS: 81001; 87086

== ENCOUNTER → 2020-10-21 12:23 | Outpatient (CLI) | payer MEDICARE, OTHER, SELFPAY ==
[2018-07-13 13:53] VITALS: BMI 25.7
--- NOTE | 2020-10-21 12:31 | DI.RAD.S_ITS ---
PROCEDURE: XR CHEST 2V INDICATIONS: COUGH TECHNIQUE: 2 views of the chest were acquired. COMPARISON: [facility], , CHEST 1 VIEW, 06/12/2014, 1:32. FINDINGS: Surgical changes and devices: Surgical clips are seen in the region of right breast. Lungs and pleura: There is mild pulmonary vascular congestion. Left basilar scarring/atelectasis is seen. No definite focal infiltrate. No pleural effusions or pneumothorax. Mediastinum: Tortuous thoracic aorta is seen. Heart size is borderline enlarged.. Bones and chest wall: No suspicious bony abnormalities. Soft tissues appear unremarkable. IMPRESSION: Mild congestion and left basilar atelectasis/scarring. No definite focal infiltrate. No pleural effusion or pneumothorax. Dictated by: Ken Atkins M.D. on 10/21/2020 at 14:17 Approved by: Ken Atkins M.D. on 10/21/2020 at 14:28
[2020-10-21 13:08] LABS: Add Manual Diff / Slide Review NO; Basophils Absolute Auto 100 /uL (0-100); Basophils Percent Auto 1.2 % (0-2); Eosinophils Absolute Auto 200 /uL (0-450); Eosinophils Percent Auto 2.9 % (2-4); Hematocrit 32.3 % (36-46); Hemoglobin 10.5 g/dL (12.0-16.0); Lymphocytes Absolute Auto 1400 /uL (1100-4500); Lymphocytes Percent Auto 20.3 % (25-40); Mean Corpuscular HGB Conc 32.6 % (30-36); Mean Corpuscular Hemoglobin 25.5 PG (26-34); Mean Corpuscular Volume 78.2 fL (80-100); Monocytes Absolute Auto 500 /uL (0-900); Monocytes Percent Auto 7.2 % (3-14); Neutrophils Absolute Auto 4700 /uL (1500-7000); Neutrophils Percent Auto 68.4 % (50-75); Platelet Count 583 X10^3/uL (150-400); Red Blood Cell Count 4.13 X10^6/uL (4.0-5.2); Red Cell Distribution Width 17.4 % (11.6-14.8); White Blood Cell Count 6.9 X10^3/uL (4.5-11.0)
[2020-10-21 14:10] LABS: Alanine Aminotransferase 22 IU/L (<35); Albumin 4.3 g/dL (3.5-5.0); Albumin Globulin Ratio 1.3 (1.0-2.8); Alkaline Phosphatase 73 U/L (38-126); Aspartate Aminotransferase 38 IU/L (14-36); BUN Creatinine Ratio 25.8 (6-22); Bilirubin Total 0.3 mg/dL (0.2-1.3); Blood Urea Nitrogen 24 mg/dL (7-17); Calcium 9.4 mg/dL (8.4-10.2); Carbon Dioxide 26 mmol/L (22-32); Chloride 103 mmol/L (98-107); Cholesterol 115 mg/dL (140-199); Estimated Glomerular Filt Rate 57.9 mL/min (>60); Globulin 3.3 g/dL (1.7-4.1); Glucose 123 mg/dL (80-110); HDL Cholesterol 46 mg/dL (40-60); HEMOLYSIS < 15 (0-50); LDL Cholesterol Calculated 48 mg/dL (<100); Potassium 3.8 mmol/L (3.4-5.1); Sodium 140 mmol/L (137-145); Total Protein 7.6 g/dL (6.3-8.2); Triglycerides 104 mg/dL (35-150)
[2020-10-22 16:59] LABS: HEMOLYSIS < 15 (0-50); Iron 35 ug/dL (37-170)
[2020-10-22 17:10] LABS: NT-proBNP (BNP-Adult 18+) 165 pg/mL (<450); Percent Iron Saturation 9 % (15-50); Total Iron Binding Capacity 406 ug/dL (265-497); Transferrin 330 mg/dL (206-381)
[2020-10-22 17:36] LABS: Ferritin 9 ng/mL (11-264)
[2020-10-22 18:06] LABS: Folate 12.4 ng/mL (2.76-20.0); Vitamin B12 > 1000 pg/mL (239-931)
== END ==
PROVIDERS: PCP Physician Assistant; Referring Provider Physician Assistant; Visit Provider Physician Assistant
DX: R05 Cough (principal); I10 Essential (primary) hypertension; R06.02 Shortness of breath
CPT/HCPCS: 36415; 71046; 80053; 80061; 82607; 82728; 82746; 83540; 83550; 83880; 84443; 85025

== ENCOUNTER → 2020-11-02 12:30 | Outpatient (CLI) | payer MEDICARE, OTHER, SELFPAY ==
[2018-07-13 13:53] VITALS: BMI 25.7
--- NOTE | 2020-11-02 12:31 | DI.ECHO.S_ITS ---
[facility] +---------+ : : [address] [place] : : : : [id number] : : : : Phone: [phone]+ Echocardiogram Report + + :Name: DONNA CHOE Study Date: 11/02/2020 Height: 62 in : :[facility] ReadingLocation: Weight: 149 lb : : Gender: Female BSA: 1.7 m2 : :: 1940 Age: 80 yrs BP: 161/76 mmHg: :Reason For Study: SHORTNESS OF BREATH : :Ordering Physician: WALT, : :FRANCISCA Performed By: Zoya Welch : :Referring: FRANCISCA GODOY : + + Interpretation Summary Borderline concentric left ventricular hypertrophy with ejection fraction 60- 65%. Mildly dilated left atrium. No valvular abnormality. Procedure: A two-dimensional transthoracic echocardiogram with color flow and Doppler was performed. The study quality was technically adequate. There is no prior echocardiogram noted for this patient. The patient was in sinus rhythm with heart rates between 59-71 bpm during the exam. Left Ventricle: There is borderline concentric left ventricular hypertrophy. The left ventricle is normal in size. The ejection fraction is estimated to be 60-65%. There are no focal wall motion abnormalities. Right Ventricle: The right ventricle is normal in size and function. Atria: The left atrium is mildly dilated. Right atrial size is normal. There is no Doppler evidence for an interatrial shunt. Mitral Valve: The mitral valve is normal in structure and function. There is trace mitral regurgitation. Aortic Valve: The aortic valve is trileaflet. The aortic valve opens well. There is no aortic valve stenosis. There is trace aortic regurgitation. Tricuspid Valve: The tricuspid valve is normal in structure and function. There is trace tricuspid regurgitation. Pulmonic Valve: The pulmonic valve leaflets are thin and pliable; valve motion is normal. There is trace pulmonic regurgitation. Great Vessels: The aortic root is borderline dilated. The dimensions of the ascending aorta are normal. The IVC is of normal diameter and collapses greater than 50% with a sniff. This suggests a low right atrial pressure of 3 mm Hg. Pericardium/ Pleura There is no pericardial effusion. There is no pleural effusion. MMode/2D Measurements & Calculations LVIDd: 4.8 cm LVOT diam: 2.3 cm LVIDs: 3.3 cm Ao root diam: 3.4 cm FS: 32.8 % asc Aorta Diam: 3.3 cm EPSS: 0.79 cm Ao Arch Diam (Prox Trans): 2.7 cm IVSd: 1.1 cm LVPWd: 1.00 cm LV cortes. diameter/BSA (cm/m^2): 2.9 LV sys. diameter/BSA (cm/m^2): 1.9 LA A2 area: 18.7 cm2 RA long axis: 5.0 cm LA A4 area: 20.1 cm2 RA area: 16.5 cm2 LA length (vol): 5.4 cm RA vol: 46.2 ml LA vol: 59.7 ml RA : 27.4 ml/m2 LA vol index: 35.4 ml/m2 IVC diam: 0.88 cm RVD1 (basal): 3.1 cm TAPSE: 1.8 cm Doppler Measurements & Calculations Ao V2 max: 104.2 cm/sec LVOT Max Ricky: 91.0 cm/sec Ao V2 mean: 75.9 cm/sec LV V1 max P.3 mmHg Ao max P.3 mmHg LV V1 VTI: 20.8 cm Ao mean P.6 mmHg HAO(I,D): 3.4 cm2 Ao V2 VTI: 24.3 cm HAO(V,D): 3.5 cm2 sev ratio: 0.86 HAO indexed to BSA (cm^2/m^2): 2.0 MV E max ricky: 65.2 cm/sec PA V2 max: 72.3 cm/sec MV A max ricky: 80.9 cm/sec PA V2 mean: 48.7 cm/sec MV E/A: 0.81 PA mean P.1 mmHg Med Peak E' Ricky: 5.1 cm/sec PA pr(Accel): 34.5 mmHg E/E' med: 12.9 Lat Peak E' Ricky: 6.3 cm/sec E/E' lat: 10.4 E/e' average: 11.6 MV dec time: 0.17 sec SV(LVOT): 83.0 ml Electronically signed by: Jonas Hopson on Reading Physician:11/02/2020 11:56 PM
== END ==
PROVIDERS: PCP Physician Assistant; Referring Provider Physician Assistant; Visit Provider Physician Assistant
DX: R06.02 Shortness of breath (principal)
CPT/HCPCS: 93306

== ENCOUNTER → 2020-11-24 17:25 | Outpatient (CLI) | payer MEDICARE, OTHER, SELFPAY ==
[2018-07-13 13:53] VITALS: BMI 25.7
--- NOTE | 2020-11-24 17:28 | DI.RAD.S_ITS ---
PROCEDURE: XR RIBS RT 2V INDICATIONS: RT SIDE PAIN/SOB TECHNIQUE: 2 views of the right ribs were acquired. COMPARISON: None. FINDINGS: Surgical changes and devices: None. Bones and chest wall: No fractures or dislocations. No suspicious bony lesions. Overlying soft tissues appear unremarkable. Lungs and pleura: The visualized lung appears clear. No pleural effusions or pneumothorax are visible. Surgical clips right breast suggest prior lumpectomy. IMPRESSION: Note is made of a pattern of right breast surgical clip suggestive of lumpectomy. Source of pain is not found at the ribs but in this clinical circumstance follow-up by nuclear medicine bone scan may be warranted. Dictated by: Gallo Aparicio M.D. on 11/25/2020 at 8:55 Approved by: Gallo Aparicio M.D. on 11/25/2020 at 8:56
--- NOTE | 2020-11-24 17:28 | DI.RAD.S_ITS ---
PROCEDURE: XR CHEST 2V INDICATIONS: RT SIDE PAIN/SOB TECHNIQUE: 2 views of the chest were acquired. COMPARISON: [facility], [place], XR CHEST 2V, 10/21/2020, 12:57. [facility], [place], CHEST 1 VIEW, 06/12/2014, 1:32. FINDINGS: Surgical changes and devices: Surgical clips right breast area, probable prior lumpectomy.. Lungs and pleura: Lungs are clear. No pleural effusions or pneumothorax. Mediastinum: Mediastinal contours are normal. Heart size is normal. Bones and chest wall: No suspicious bony abnormalities. Soft tissues appear unremarkable. IMPRESSION: Normal for age, source of current right-sided chest pain and shortness of breath symptoms is not seen. 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 Dictated by: Gallo Aparicio M.D. on 11/25/2020 at 8:54 Approved by: Gallo Aparicio M.D. on 11/25/2020 at 8:55
== END ==
PROVIDERS: PCP Physician Assistant; Referring Provider Physician Assistant; Visit Provider Physician Assistant
DX: R06.02 Shortness of breath (principal); R07.81 Pleurodynia
CPT/HCPCS: 71046; 71100

== ENCOUNTER → 2021-12-18 15:57 | Outpatient (CLI) | payer MEDICARE, OTHER, SELFPAY ==
[2018-07-13 13:53] VITALS: BMI 25.7
== END ==
PROVIDERS: PCP Physician Assistant; Visit Provider Physician Assistant
DX: N39.0 Urinary tract infection, site not specified (principal)
CPT/HCPCS: 87086

== ENCOUNTER 2022-01-27 10:30 | Outpatient (RCR) | payer MEDICARE, OTHER, SELFPAY ==
[2018-07-13 13:53] VITALS: BMI 25.7
--- NOTE | 2021-12-30 17:24 | PT.OIE ---
Current Diagnoses Difficulty in walking, not elsewhere classified (12/30/21) Unspecified abnormalities of gait and mobility (12/30/21) Weakness (12/30/21) History of falling (12/30/21) Past Medical History (Last Reviewed 12/18/21 @ 16:01 by Tere Denson PA-C) CVA (cerebral vascular accident) Stroke Visit Care Team Role Provider Type Conchita Felipe PA-C Attending Provider Non-Staff Primary Care Provider Referring Provider Specialty: Internal Medicine Address: [address] [place] [address], [facility] Email: [email or web address] [facility] Initial Evaluation PT-OP-A Visit Information Start: 12/30/21 10:34 Freq: Status: Active Protocol: Document 12/30/21 10:34 SAK (Rec: 12/30/21 11:17 SAK [id number]) Out-Patient Physical Therapy Visit Information Visit Information Visit Type Initial Evaluation Visit Start Time 10:34 Visit Stop Time 11:16 Total Visit Minutes 42 Visit Number 1 Evaluation Information Evaluation Date 12/30/21 Precautions Precautions history multiple strokes PT-OP-B Current Condition Start: 12/30/21 10:34 Freq: Status: Active Protocol: Document 12/30/21 10:34 SAK (Rec: 12/30/21 11:17 SAK [id number]) Current Condition History of Current Condition Onset Date 2 years Current Complaints weakness, decreased mobility History of Current Condition wants to be more mobile at home, walks with walker at home 1 fall over the past year . Doesn't walk beyond bed to bath or chair; states I don't have anything to walk for. Pandemic as well as weather has affected her mobility. Max walking 50 ft, uses 's cane and holds onto . Does own self-care. For fun: reads, watches movie. Had started going to gym for 20 min on Nu-Step 2-3x/wk. No exercise bike at home, and does minimal activity. Had strong cold over past month so hasn't been to the gym for 1 month. Treatment Goals Patient/Caregiver Goals Improve mobility and strength. Interested in aquatic therrapy; will do land-based PT until aquatic PT appointment available. Be able to cook, do art, Prior Functional Status Baseline Function- ADL's Modified Independent Baseline Function- Mobility Modified Independent Baseline Function- Gait gait with SPC indep Baseline Function- Recreation/Hobbies art, cooking, quaker activities, walking Current Functional Impairments (Reported) Functional Limitations- ADL's modified indep Functional Limitations- Mobility/Gait household with SPC or walker, in community uses cane and holds onto her . Very slow Functional Limitations- Recreation/ doesn't do; doesn't feel Hobbies strong enough or have the energy Personal Factors Other Personal Factors That May Effect admitted depression Therapy/Recovery PT-OP-D Balance Start: 12/30/21 10:34 Freq: Status: Active Protocol: Document 12/30/21 10:31 SAK (Rec: 01/03/22 17:23 [facility] [id number]) OP-PT Balance Assessment Sitting Balance Static Sitting Balance Ability Good Dynamic Sitting Balance Ability Good Standing Balance Static Standing Balance Ability Poor Dynamic Standing Balance Ability Poor Balance Tests Single Limb Standing Single Limb- Right unable Single Limb- Left unable Semi-Tandem Standing Semi-Tandem Standing Balance unable without assistance Tandem Tandem Standing unable without assistance Tinetti Balance Assessment Sitting Balance Sitting Balance Steady, safe Arising from Chair Ability to Arise Able, uses arms to help Attempts to Arise Able, requires >1 attempt Standing Balance Immediate Standing Balance Steady with support Standing Balance Steady, wide stance Nudged Response Begins to fall Standing with Eyes Closed Steady Turning Step Pattern Turning 360 Degrees Continuous steps Stability Turning 360 Degrees Unsteady, grabs/staggers Sitting Down Sitting Down Uses arms or unsteady Gait and Step Initiation of Gait Hesitancy, mult. attempts Right Foot Step Length Does not pass stance ft. Right Foot Step Height Does not clear floor Left Foot Step Length Does not pass stance foot Left Foot Step Height Does not clear floor Step Description Step Symmetry Step length not equal Step Continuity Steps appear continuous Gait Description Path Description Mild/moderate deviation Trunk Description Marked sway or uses aide Walking Stance Heels apart Scoring and Interpretation Tinetti Composite Score (points) 10 Interpretation of Scores High risk for falls(< 19) Vann Fall Scale Copyright Permission PT-OP-E Functional Tests Start: 12/30/21 10:34 Freq: Status: Active Protocol: Document 12/30/21 10:31 SAK (Rec: 01/03/22 17:23 [facility] [id number]) Functional Tests 6 Minute Walk Test Distance 121 ft Device Used SPC Comments slow, shuffling Five Times Sit to Stand Test Comments unable to complete, too fatigued Timed Up and Go (TUG) Comments next session PT-OP-G Mobility & Gait Start: 12/30/21 10:34 Freq: Status: Active Protocol: Document 12/30/21 10:31 [facility] (Rec: 01/03/22 17:23 [facility] [id number]) OP Mobility Evaluation Bed Mobility Supine to and from Sit labored but indep Transfers Sit to Stand SB to mod assist OP Gait Assessment Gait Gait Assistance Required: Contact Guard Assist Distance (Feet) 121 Assistive Devices Assistive Device Front Wheeled Walker Gait Deviations General Gait Pattern Decreased Stride Length, Decreased Feet Clearance, Flexed Trunk,Wide Based Gait Factors Limiting Gait Function Factors Limiting Gait Function Decreased Activity Tolerance, Decreased Strength Comments Gait Comments Very slow, shuffling gait using FWW. PT-OP-J Posture/Palpation/Skin Start: 12/30/21 10:34 Freq: Status: Active Protocol: Document 12/30/21 10:31 [facility] (Rec: 01/03/22 17:23 [facility] [id number]) Posture Evaluation Position Standing Head/C-Spine Posture Forward Head T-Spine Posture Increased Kyphosis Scapula Posture (L) Protracted,(R) Protracted Arm Posture (L) Internally Rotated,(R) Internally Rotated Pelvis Posture Posterior Tilted PT-OP-K Range of Motion Start: 12/30/21 10:34 Freq: Status: Active Protocol: Document 12/30/21 10:31 [facility] (Rec: 01/03/22 17:23 [facility] [id number]) Shoulder Goniometric Range of Motion Shoulder Left Shoulder ROM WFL Yes PT-OP-M Strength Start: 12/30/21 10:34 Freq: Status: Active Protocol: Document 12/30/21 10:31 [facility] (Rec: 01/03/22 17:23 [facility] [id number]) Shoulder Strength Shoulder Manual Muscle Testing Right Flexion 4- Good- Abduction (C5) 3+ Fair+ Left Comments 4+/5 throughout Elbow/Forearm Strength Elbow and Forearm Manual Muscle Testing Right Flexion (C6) 4 Good Extension (C7) 4 Good Left Flexion (C6) 4+ Good+ Extension (C7) 4+ Good+ Hip Strength Hip Manual Muscle Testing Right Flexion (L2) 3- Fair- Extension (S1) 3- Fair- Abduction 3- Fair- Adduction 3- Fair- Internal Rotation 3+ Fair+ Left Flexion (L2) 4 Good Extension (S1) 4 Good External Rotation 4- Good- Internal Rotation 4 Good Knee Strength Knee Manual Muscle Testing Right Flexion (S2) 4 Good Extension (L3) 4 Good Left Flexion (S2) 5 Normal Extension (L3) 5 Normal Ankle/Foot Strength Ankle and Foot Manual Muscle Testing Right Dorsiflexion (L4) 4- Good- Plantarflexion (S1) 4- Good- Left Dorsiflexion (L4) 4+ Good+ Plantarflexion (S1) 4+ Good+ PT-OP-Q Treatments Start: 12/30/21 10:34 Freq: Status: Active Protocol: Document 12/30/21 10:31 [facility] (Rec: 01/03/22 17:23 [facility] [id number]) Self-Care/Home Management Treatment Education Patient Education Home Exercise Program,Safety Other Education Patient to bring prior HEP handout. PT-OP-T Assessment and Plan Start: 12/30/21 10:34 Freq: Status: Active Protocol: Document 12/30/21 10:31 [facility] (Rec: 01/03/22 17:23 [facility] [id number]) Physical Therapy Assessment Rehab Potential Rehabilitation Potential Good Evaluation Complexity Number of Personal Factors/Comorbidities 1-2 Number of Body Systems Impaired 3 Clinical Presentation at Evaluation Evolving Impairments Impairments Activity Tolerance,Functional Mobility,Gait,Strength, Transfers Goals activity tolerance Impairment patient not able to cook or do art work due to decreased activity tolerance Halfway Goal (LTG) Patient will be able to cook simple meal, and be able to resume some art activity at least 3 days per week. LTG Duration 04/03/22 strength Impairment weakness carl LE's right greater than left Short Term Goal (STG) Patient will be instructed in a progressive HEP for purposes of LE strengthening STG Duration 01/14/22 Seating Upholsterer Goal (LTG) Patient will demonstrate improved functional strength as evidenced by ability to transfer sit to stand from standard height stair without the use of her UE's. LTG Duration 04/03/22 balance Impairment Tinetti gait and balance assessment score 10/28 Impairment high risk for falls Short Term Goal (STG) patient will be instructed in HEP for purposes of balance improvement STG Duration 01/28/22 Halfway Goal (LTG) Improve Tinetti score to at least 17/28 as measure of reduced fall risk LTG Duration 04/03/22 gait Impairment 6 min walk test 121ft with front wheeled walker Short Term Goal (STG) Improve 6 min walk test to at least 175 ft with FWW STG Duration 01/28/22 Halfway Goal (LTG) Patient will be able to ambulate at least 250' in 6 minutes using least restrictive device LTG Duration 04/03/22 Assessment Summary Assessment Patient presents with functional decline, weakness, decreased activity tolerance s /p history of 5 CVA's and other medical issues plus Covid activity limitations. She comes to PT today with her who is her primary caregiver. She would benefit from skilled physical therapy to work in improving her functional strength, balance, and gait to allow her to increase her functional activity tolerance and independence, and quality of life. We discussed the plan of care and she and her agreed. Physical Therapy Plan Frequency and Duration Frequency of Treatment 2x/Week Duration of Treatment 12 weeks Plan of Care Start Date 12/30/21 Plan of Care End Date 04/03/22 Next Visit Focus/Plan Next Note Type Treatment Note Next Visit Plan Review HEP, start with recumbant elliptical. Strengthening, balance training, gait training as tolerated.
--- NOTE | 2021-12-30 17:27 | PT.OPPOC ---
Physical, Occupational & Speech Therapy At [facility] Current Diagnoses Difficulty in walking, not elsewhere classified (12/30/21) Unspecified abnormalities of gait and mobility (12/30/21) Weakness (12/30/21) History of falling (12/30/21) Visit Care Team Role Provider Type Conchita Felipe PA-C Attending Provider Non-Staff Primary Care Provider Referring Provider Specialty: Internal Medicine Address: [address] [place] [address], [facility] Email: [email or web address] Of Care PT-OP-T Assessment and Plan Start: 12/30/21 10:34 Freq: Status: Active Protocol: Document 12/30/21 10:31 [facility] (Rec: 01/03/22 17:23 [facility] [id number]) Physical Therapy Assessment Rehab Potential Rehabilitation Potential Good Evaluation Complexity Number of Personal Factors/Comorbidities 1-2 Number of Body Systems Impaired 3 Clinical Presentation at Evaluation Evolving Impairments Impairments Activity Tolerance,Functional Mobility,Gait,Strength, Transfers Goals activity tolerance Impairment patient not able to cook or do art work due to decreased activity tolerance Halfway Goal (LTG) Patient will be able to cook simple meal, and be able to resume some art activity at least 3 days per week. LTG Duration 04/03/22 strength Impairment weakness carl LE's right greater than left Short Term Goal (STG) Patient will be instructed in a progressive HEP for purposes of LE strengthening STG Duration 01/14/22 Pad Hand Goal (LTG) Patient will demonstrate improved functional strength as evidenced by ability to transfer sit to stand from standard height stair without the use of her UE's. LTG Duration 04/03/22 balance Impairment Tinetti gait and balance assessment score 10/28 Impairment high risk for falls Short Term Goal (STG) patient will be instructed in HEP for purposes of balance improvement STG Duration 01/28/22 Halfway Goal (LTG) Improve Tinetti score to at least 17/28 as measure of reduced fall risk LTG Duration 04/03/22 gait Impairment 6 min walk test 121ft with front wheeled walker Short Term Goal (STG) Improve 6 min walk test to at least 175 ft with FWW STG Duration 01/28/22 Pad Hand Goal (LTG) Patient will be able to ambulate at least 250' in 6 minutes using least restrictive device LTG Duration 04/03/22 Assessment Summary Assessment Patient presents with functional decline, weakness, decreased activity tolerance s /p history of 5 CVA's and other medical issues plus Covid activity limitations. She comes to PT today with her who is her primary caregiver. She would benefit from skilled physical therapy to work in improving her functional strength, balance, and gait to allow her to increase her functional activity tolerance and independence, and quality of life. We discussed the plan of care and she and her agreed. Physical Therapy Plan Frequency and Duration Frequency of Treatment 2x/Week Duration of Treatment 12 weeks Plan of Care Start Date 12/30/21 Plan of Care End Date 04/03/22 Next Visit Focus/Plan Next Note Type Treatment Note Next Visit Plan Review HEP, start with recumbant elliptical. Strengthening, balance training, gait training as tolerated. Plan of Care Dates Plan of Care Start Date 12/30/21 Plan of Care End Date 04/03/22 Electronically Signed by: Sapphire Patel, PT 01/03/22 0447 If you are in agreement with this Plan of Care, please return a signed and dated copy. I have reviewed this Plan of Care and certify that the skilled therapy services above are required to meet the patient?s needs. Physician Signature Date Printed Name and Credentials Clinical Instructor Signature Printed Name and Credentials
--- NOTE | 2022-01-04 17:21 | PT.OTN ---
Current Diagnoses Difficulty in walking, not elsewhere classified (01/04/22) Unspecified abnormalities of gait and mobility (01/04/22) Weakness (01/04/22) History of falling (01/04/22) Physical Therapy Treatment Note PT-OP-A Visit Information Start: 12/30/21 10:34 Freq: Status: Active Protocol: Document 01/04/22 12:58 [facility] (Rec: 01/04/22 13:45 [facility] [id number]) Out-Patient Physical Therapy Visit Information Visit Information Visit Type Treatment Note Visit Note looke Visit Start Time 13:00 Visit Stop Time 13:45 Total Visit Minutes 45 Visit Number 2 Number of AIR DUCT MECHANIC Visits 0 Evaluation Information Evaluation Date 12/30/21 Precautions Precautions history multiple strokes PT-OP-B Current Condition Start: 12/30/21 10:34 Freq: Status: Active Protocol: Document 01/04/22 12:58 [facility] (Rec: 01/04/22 13:45 [facility] [id number]) Current Condition History of Current Condition Onset Date 2 years Current Complaints weakness, decreased mobility History of Current Condition wants to be more mobile at home, walks with walker at home 1 fall over the past year . Doesn't walk beyond bed to bath or chair; states I don't have anything to walk for. Pandemic as well as weather has affected her mobility. Max walking 50 ft, uses 's cane and holds onto . Does own self-care. For fun: reads, watches movie. Had started going to gym for 20 min on Nu-Step 2-3x/wk. No exercise bike at home, and does minimal activity. Had strong cold over past month so hasn't been to the gym for 1 month. Treatment Goals Patient/Caregiver Goals Improve mobility and strength. Interested in aquatic therrapy; will do land-based PT until aquatic PT appointment available. Be able to cook, do art, PT-OP-D Balance Start: 12/30/21 10:34 Freq: Status: Active Protocol: Document 12/30/21 10:31 [facility] (Rec: 01/03/22 17:23 [facility] [id number]) OP-PT Balance Assessment Sitting Balance Static Sitting Balance Ability Good Dynamic Sitting Balance Ability Good Standing Balance Static Standing Balance Ability Poor Dynamic Standing Balance Ability Poor Balance Tests Single Limb Standing Single Limb- Right unable Single Limb- Left unable Semi-Tandem Standing Semi-Tandem Standing Balance unable without assistance Tandem Tandem Standing unable without assistance Tinetti Balance Assessment Sitting Balance Sitting Balance Steady, safe Arising from Chair Ability to Arise Able, uses arms to help Attempts to Arise Able, requires >1 attempt Standing Balance Immediate Standing Balance Steady with support Standing Balance Steady, wide stance Nudged Response Begins to fall Standing with Eyes Closed Steady Turning Step Pattern Turning 360 Degrees Continuous steps Stability Turning 360 Degrees Unsteady, grabs/staggers Sitting Down Sitting Down Uses arms or unsteady Gait and Step Initiation of Gait Hesitancy, mult. attempts Right Foot Step Length Does not pass stance ft. Right Foot Step Height Does not clear floor Left Foot Step Length Does not pass stance foot Left Foot Step Height Does not clear floor Step Description Step Symmetry Step length not equal Step Continuity Steps appear continuous Gait Description Path Description Mild/moderate deviation Trunk Description Marked sway or uses aide Walking Stance Heels apart Scoring and Interpretation Tinetti Composite Score (points) 10 Interpretation of Scores High risk for falls(< 19) Vann Fall Scale Copyright Permission PT-OP-E Functional Tests Start: 12/30/21 10:34 Freq: Status: Active Protocol: Document 12/30/21 10:31 [facility] (Rec: 01/03/22 17:23 [facility] [id number]) Functional Tests 6 Minute Walk Test Distance 121 ft Device Used SPC Comments slow, shuffling Five Times Sit to Stand Test Comments unable to complete, too fatigued Timed Up and Go (TUG) Comments next session PT-OP-G Mobility & Gait Start: 12/30/21 10:34 Freq: Status: Active Protocol: Document 12/30/21 10:31 [facility] (Rec: 01/03/22 17:23 [facility] [id number]) OP Mobility Evaluation Bed Mobility Supine to and from Sit labored but indep Transfers Sit to Stand SB to mod assist OP Gait Assessment Gait Gait Assistance Required: Contact Guard Assist Distance (Feet) 121 Assistive Devices Assistive Device Front Wheeled Walker Gait Deviations General Gait Pattern Decreased Stride Length, Decreased Feet Clearance, Flexed Trunk,Wide Based Gait Factors Limiting Gait Function Factors Limiting Gait Function Decreased Activity Tolerance, Decreased Strength Comments Gait Comments Very slow, shuffling gait using FWW. PT-OP-J Posture/Palpation/Skin Start: 12/30/21 10:34 Freq: Status: Active Protocol: Document 12/30/21 10:31 [facility] (Rec: 01/03/22 17:23 [facility] [id number]) Posture Evaluation Position Standing Head/C-Spine Posture Forward Head T-Spine Posture Increased Kyphosis Scapula Posture (L) Protracted,(R) Protracted Arm Posture (L) Internally Rotated,(R) Internally Rotated Pelvis Posture Posterior Tilted PT-OP-K Range of Motion Start: 12/30/21 10:34 Freq: Status: Active Protocol: Document 12/30/21 10:31 [facility] (Rec: 01/03/22 17:23 [facility] [id number]) Shoulder Goniometric Range of Motion Shoulder Left Shoulder ROM WFL Yes PT-OP-M Strength Start: 12/30/21 10:34 Freq: Status: Active Protocol: Document 12/30/21 10:31 [facility] (Rec: 01/03/22 17:23 [facility] [id number]) Shoulder Strength Shoulder Manual Muscle Testing Right Flexion 4- Good- Abduction (C5) 3+ Fair+ Left Comments 4+/5 throughout Elbow/Forearm Strength Elbow and Forearm Manual Muscle Testing Right Flexion (C6) 4 Good Extension (C7) 4 Good Left Flexion (C6) 4+ Good+ Extension (C7) 4+ Good+ Hip Strength Hip Manual Muscle Testing Right Flexion (L2) 3- Fair- Extension (S1) 3- Fair- Abduction 3- Fair- Adduction 3- Fair- Internal Rotation 3+ Fair+ Left Flexion (L2) 4 Good Extension (S1) 4 Good External Rotation 4- Good- Internal Rotation 4 Good Knee Strength Knee Manual Muscle Testing Right Flexion (S2) 4 Good Extension (L3) 4 Good Left Flexion (S2) 5 Normal Extension (L3) 5 Normal Ankle/Foot Strength Ankle and Foot Manual Muscle Testing Right Dorsiflexion (L4) 4- Good- Plantarflexion (S1) 4- Good- Left Dorsiflexion (L4) 4+ Good+ Plantarflexion (S1) 4+ Good+ PT-OP-Q Treatments Start: 12/30/21 10:34 Freq: Status: Active Protocol: Document 01/04/22 12:58 [facility] (Rec: 01/04/22 13:45 [facility] [id number]) Cardio Equipment Recumbent Stepper (Sci-Fit) Duration (Minutes) 5 Resistance 1 Seat Position 11 Other 0.39 miles, cues to inc rpm, max 37 Gait Training Gait Activity 2 Description level Device Used single point cane Level of Assistance min assist Surface firm Distance/Duration 20 ft Treatment Focus safety, decreased UE support 1 Description forward and backward, september Device Used parallel bars Level of Assistance unilateral UE Surface firm Distance/Duration 2 laps each Neuro Re-Education Treatment Balance Activities SLS with arm raised Details HEP (handout from home health) reviewed Reps/Duration 3x5 Comments same arm unil UE support on parallel bars Clock reach Details HEP (handout from home health) reviewed Surface firm Reps/Duration 3x Comments lift one leg, move same arm 12 ,3,6,3,12 Unilateral UE support on parallel bars foam stand Surface blue square foam Reps/Duration 5 min Comments with weight shifts toward toes , heals. CG to mod assist; loses balance backward Self-Care/Home Management Treatment Education Patient Education Home Exercise Program Other Education Reviewed HEP handout from home health PT, patient demonstrated fair understanding. Instructed to Do 1-2 exercises at bathroom counter each time goes to bathroom, 1-2 exercises at kictchen counter before or after a meal, so doesn't have to do entire HEP at one sitting. Issued seated HEP ankle pumps, September PT-OP-T Assessment and Plan Start: 12/30/21 10:34 Freq: Status: Active Protocol: Document 01/04/22 12:58 [facility] (Rec: 01/04/22 13:45 [facility] [id number]) Physical Therapy Assessment Impairments Impairments Activity Tolerance,Functional Mobility,Gait,Strength, Transfers Goals activity tolerance Impairment patient not able to cook or do art work due to decreased activity tolerance Impairment also unable to garden Halfway Goal (LTG) Patient will be able to cook simple meal, do light gardening tasks, and be able to resume some art activity at least 3 days per week. LTG Duration 04/03/22 strength Impairment weakness carl LE's right greater than left Short Term Goal (STG) Patient will be instructed in a progressive HEP for purposes of LE strengthening STG Duration 01/14/22 Underliner Goal (LTG) Patient will demonstrate improved functional strength as evidenced by ability to transfer sit to stand from standard height stair without the use of her UE's. LTG Duration 04/03/22 balance Impairment Tinetti gait and balance assessment score 10/28 Impairment high risk for falls Short Term Goal (STG) patient will be instructed in HEP for purposes of balance improvement STG Duration 01/28/22 Halfway Goal (LTG) Improve Tinetti score to at least 17/28 as measure of reduced fall risk LTG Duration 04/03/22 gait Impairment 6 min walk test 121ft with front wheeled walker Short Term Goal (STG) Improve 6 min walk test to at least 175 ft with FWW STG Duration 01/28/22 Underliner Goal (LTG) Patient will be able to ambulate at least 250' in 6 minutes using least restrictive device LTG Duration 04/03/22 Assessment Summary Assessment Patient fatigues quickly, needed frequent brief rest breaks during 40 min PT session today. She has difficulty increasing her speed with any activity. I questioned her about her vision and reports she has macular degeneration, and she needs new glasses; feel this is impacting her feeling of safety with her mobility skills. She states her vision is fuzzy. She was encouraged to make appointment to get new glassess. Physical Therapy Plan Frequency and Duration Frequency of Treatment 2x/Week Duration of Treatment 12 weeks Plan of Care Start Date 12/30/21 Plan of Care End Date 04/03/22 Therapeutic Interventions Therapeutic Interventions Aquatic Therapy,Gait Training, Home Exercise Program,Manual Therapy,Neuromuscular Re- education,Patient/Caregiver Education,Self-Care/Home Management,Soft Tissue Mobilization,Taping, Therapeutic Activities, Therapeutic Exercises Modalities Cold Pack/Ice Massage,Hot Packs Next Visit Focus/Plan Next Note Type Treatment Note Next Visit Plan work on sit to stand from elevated surface to allow her to do without UE support, lower as able with education for more efficient movement. Continue progression of ther ex for strengthening, balance retraining and gait training with emphasis on increased speed of movement with gait.
--- NOTE | 2022-01-06 12:20 | PT.OTN ---
Current Diagnoses Difficulty in walking, not elsewhere classified (01/06/22) Unspecified abnormalities of gait and mobility (01/06/22) Weakness (01/06/22) History of falling (01/06/22) Physical Therapy Treatment Note PT-OP-A Visit Information Start: 12/30/21 10:34 Freq: Status: Active Protocol: Document 01/06/22 11:18 [facility] (Rec: 01/06/22 12:20 [facility] [id number]) Out-Patient Physical Therapy Visit Information Visit Information Visit Type Treatment Note Visit Start Time 11:20 Visit Stop Time 12:00 Total Visit Minutes 40 Visit Number 3 Number of PHOTOGRAMMETRIC ENGINEER Visits 0 Evaluation Information Evaluation Date 12/30/21 Precautions Precautions history multiple strokes PT-OP-B Current Condition Start: 12/30/21 10:34 Freq: Status: Active Protocol: Document 01/06/22 11:18 [facility] (Rec: 01/06/22 12:20 [facility] [id number]) Current Condition History of Current Condition Onset Date 2 years Current Complaints weakness, decreased mobility History of Current Condition wants to be more mobile at home, walks with walker at home 1 fall over the past year . Doesn't walk beyond bed to bath or chair; states I don't have anything to walk for. Pandemic as well as weather has affected her mobility. Max walking 50 ft, uses 's cane and holds onto . Does own self-care. For fun: reads, watches movie. Had started going to gym for 20 min on Nu-Step 2-3x/wk. No exercise bike at home, and does minimal activity. Had strong cold over past month so hasn't been to the gym for 1 month. Treatment Goals Patient/Caregiver Goals No new c/o, did ok after first treatment session. Prior Functional Status Baseline Function- ADL's Modified Independent Baseline Function- Mobility Modified Independent Baseline Function- Gait gait with SPC indep Baseline Function- Recreation/Hobbies art, cooking, anabaptism activities, walking Current Functional Impairments (Reported) Functional Limitations- ADL's modified indep Functional Limitations- Mobility/Gait household with SPC or walker, in community uses cane and holds onto her . Very slow Functional Limitations- Recreation/ doesn't do; doesn't feel Hobbies strong enough or have the energy PT-OP-D Balance Start: 12/30/21 10:34 Freq: Status: Active Protocol: Document 12/30/21 10:31 [facility] (Rec: 01/03/22 17:23 [facility] [id number]) OP-PT Balance Assessment Sitting Balance Static Sitting Balance Ability Good Dynamic Sitting Balance Ability Good Standing Balance Static Standing Balance Ability Poor Dynamic Standing Balance Ability Poor Balance Tests Single Limb Standing Single Limb- Right unable Single Limb- Left unable Semi-Tandem Standing Semi-Tandem Standing Balance unable without assistance Tandem Tandem Standing unable without assistance Tinetti Balance Assessment Sitting Balance Sitting Balance Steady, safe Arising from Chair Ability to Arise Able, uses arms to help Attempts to Arise Able, requires >1 attempt Standing Balance Immediate Standing Balance Steady with support Standing Balance Steady, wide stance Nudged Response Begins to fall Standing with Eyes Closed Steady Turning Step Pattern Turning 360 Degrees Continuous steps Stability Turning 360 Degrees Unsteady, grabs/staggers Sitting Down Sitting Down Uses arms or unsteady Gait and Step Initiation of Gait Hesitancy, mult. attempts Right Foot Step Length Does not pass stance ft. Right Foot Step Height Does not clear floor Left Foot Step Length Does not pass stance foot Left Foot Step Height Does not clear floor Step Description Step Symmetry Step length not equal Step Continuity Steps appear continuous Gait Description Path Description Mild/moderate deviation Trunk Description Marked sway or uses aide Walking Stance Heels apart Scoring and Interpretation Tinetti Composite Score (points) 10 Interpretation of Scores High risk for falls(< 19) Vann Fall Scale Copyright Permission PT-OP-E Functional Tests Start: 12/30/21 10:34 Freq: Status: Active Protocol: Document 12/30/21 10:31 [facility] (Rec: 01/03/22 17:23 [facility] [id number]) Functional Tests 6 Minute Walk Test Distance 121 ft Device Used SPC Comments slow, shuffling Five Times Sit to Stand Test Comments unable to complete, too fatigued Timed Up and Go (TUG) Comments next session PT-OP-G Mobility & Gait Start: 12/30/21 10:34 Freq: Status: Active Protocol: Document 12/30/21 10:31 [facility] (Rec: 01/03/22 17:23 [facility] [id number]) OP Mobility Evaluation Bed Mobility Supine to and from Sit labored but indep Transfers Sit to Stand SB to mod assist OP Gait Assessment Gait Gait Assistance Required: Contact Guard Assist Distance (Feet) 121 Assistive Devices Assistive Device Front Wheeled Walker Gait Deviations General Gait Pattern Decreased Stride Length, Decreased Feet Clearance, Flexed Trunk,Wide Based Gait Factors Limiting Gait Function Factors Limiting Gait Function Decreased Activity Tolerance, Decreased Strength Comments Gait Comments Very slow, shuffling gait using FWW. PT-OP-J Posture/Palpation/Skin Start: 12/30/21 10:34 Freq: Status: Active Protocol: Document 12/30/21 10:31 [facility] (Rec: 01/03/22 17:23 [facility] [id number]) Posture Evaluation Position Standing Head/C-Spine Posture Forward Head T-Spine Posture Increased Kyphosis Scapula Posture (L) Protracted,(R) Protracted Arm Posture (L) Internally Rotated,(R) Internally Rotated Pelvis Posture Posterior Tilted PT-OP-K Range of Motion Start: 12/30/21 10:34 Freq: Status: Active Protocol: Document 12/30/21 10:31 [facility] (Rec: 01/03/22 17:23 [facility] [id number]) Shoulder Goniometric Range of Motion Shoulder Left Shoulder ROM WFL Yes PT-OP-M Strength Start: 12/30/21 10:34 Freq: Status: Active Protocol: Document 12/30/21 10:31 [facility] (Rec: 01/03/22 17:23 [facility] [id number]) Shoulder Strength Shoulder Manual Muscle Testing Right Flexion 4- Good- Abduction (C5) 3+ Fair+ Left Comments 4+/5 throughout Elbow/Forearm Strength Elbow and Forearm Manual Muscle Testing Right Flexion (C6) 4 Good Extension (C7) 4 Good Left Flexion (C6) 4+ Good+ Extension (C7) 4+ Good+ Hip Strength Hip Manual Muscle Testing Right Flexion (L2) 3- Fair- Extension (S1) 3- Fair- Abduction 3- Fair- Adduction 3- Fair- Internal Rotation 3+ Fair+ Left Flexion (L2) 4 Good Extension (S1) 4 Good External Rotation 4- Good- Internal Rotation 4 Good Knee Strength Knee Manual Muscle Testing Right Flexion (S2) 4 Good Extension (L3) 4 Good Left Flexion (S2) 5 Normal Extension (L3) 5 Normal Ankle/Foot Strength Ankle and Foot Manual Muscle Testing Right Dorsiflexion (L4) 4- Good- Plantarflexion (S1) 4- Good- Left Dorsiflexion (L4) 4+ Good+ Plantarflexion (S1) 4+ Good+ PT-OP-Q Treatments Start: 12/30/21 10:34 Freq: Status: Active Protocol: Document 01/06/22 11:18 [facility] (Rec: 01/06/22 12:20 [facility] [id number]) Cardio Equipment Recumbent Stepper (Sci-Fit) Duration (Minutes) 5 Resistance 1 Seat Position 11 Other 0.42 miles, cues to inc rpm, max 47 Therapeutic Exercises Sitting Exercises diagonal reach Reps/Minutes 5x ea Comments for highest apple chopsticks legs Sitting Exercise Name adduction to abduction and back to add Reps/Minutes 2 min sit to stand Resistance 2 pillows Reps/Minutes 6x Comments cues for nose over toes Standing Exercises step touch Equipment Used metronome 60 Reps/Minutes 1 min Comments unilateral UE support bar left Gait Training Gait Activity 2 Description level Device Used single point cane Level of Assistance min assist Surface firm Distance/Duration 20 ft x 2 Treatment Focus safety, decreased UE support Neuro Re-Education Treatment Balance Activities step touch Equipment 6 step Reps/Duration 10x ea Comments unilateral UE support bar metronome 60 bpm step outs Details forward, back, side Reps/Duration 10 x ea Comments bar one side, cane other side metronome 60 bpm foam stand Surface blue square foam Reps/Duration 5 min Comments with weight shifts toward toes , heals. CG to mod assist; loses balance backward Self-Care/Home Management Treatment Education Patient Education Home Exercise Program PT-OP-T Assessment and Plan Start: 12/30/21 10:34 Freq: Status: Active Protocol: Document 01/06/22 11:18 [facility] (Rec: 01/06/22 12:20 [facility] [id number]) Physical Therapy Assessment Impairments Impairments Activity Tolerance,Functional Mobility,Gait,Strength, Transfers Goals activity tolerance Impairment patient not able to cook or do art work due to decreased activity tolerance Impairment also unable to garden Custodial Goal (LTG) Patient will be able to cook simple meal, do light gardening tasks, and be able to resume some art activity at least 3 days per week. LTG Duration 04/03/22 strength Impairment weakness carl LE's right greater than left Short Term Goal (STG) Patient will be instructed in a progressive HEP for purposes of LE strengthening STG Duration 01/14/22 Custodial Goal (LTG) Patient will demonstrate improved functional strength as evidenced by ability to transfer sit to stand from standard height stair without the use of her UE's. LTG Duration 04/03/22 balance Impairment Tinetti gait and balance assessment score 10/28 Impairment high risk for falls Short Term Goal (STG) patient will be instructed in HEP for purposes of balance improvement STG Duration 01/28/22 Legal Word Processor Goal (LTG) Improve Tinetti score to at least 17/28 as measure of reduced fall risk LTG Duration 04/03/22 gait Impairment 6 min walk test 121ft with front wheeled walker Short Term Goal (STG) Improve 6 min walk test to at least 175 ft with FWW STG Duration 01/28/22 Legal Word Processor Goal (LTG) Patient will be able to ambulate at least 250' in 6 minutes using least restrictive device LTG Duration 04/03/22 Assessment Summary Assessment Improved sit to stand with emphsis on nose over toes. Use of metronome helpful in cuing for increased speed with gait, step out, and step touch exercises Encouraged patient to make appointment to obtain new glasses. Physical Therapy Plan Frequency and Duration Frequency of Treatment 2x/Week Duration of Treatment 12 weeks Plan of Care Start Date 12/30/21 Plan of Care End Date 04/03/22 Therapeutic Interventions Therapeutic Interventions Aquatic Therapy,Gait Training, Home Exercise Program,Manual Therapy,Neuromuscular Re- education,Patient/Caregiver Education,Self-Care/Home Management,Soft Tissue Mobilization,Taping, Therapeutic Activities, Therapeutic Exercises Modalities Cold Pack/Ice Massage,Hot Packs Next Visit Focus/Plan Next Note Type Treatment Note Next Visit Plan Continue to work on sit to stand from elevated surface to allow her to do without UE support, lower as able with education for more efficient movement, improved functional strength and balance. Continue progression of ther ex for strengthening, balance retraining and gait training with emphasis on increased speed of movement with gait.
--- NOTE | 2022-01-10 17:14 | PT.OTN ---
Current Diagnoses Difficulty in walking, not elsewhere classified (01/10/22) Unspecified abnormalities of gait and mobility (01/10/22) Weakness (01/10/22) History of falling (01/10/22) Physical Therapy Treatment Note PT-OP-A Visit Information Start: 12/30/21 10:34 Freq: Status: Active Protocol: Document 01/10/22 09:03 [facility]AK (Rec: 01/10/22 09:51 [facility] [id number]) Out-Patient Physical Therapy Visit Information Visit Information Visit Type Treatment Note Visit Start Time 09:03 Visit Stop Time 09:45 Total Visit Minutes 42 Visit Number 4 Number of APPEALS EXAMINER Visits 0 Evaluation Information Evaluation Date 12/30/21 Precautions Precautions history multiple strokes PT-OP-B Current Condition Start: 12/30/21 10:34 Freq: Status: Active Protocol: Document 01/10/22 09:03 SAK (Rec: 01/10/22 09:51 [facility] [id number]) Current Condition History of Current Condition Onset Date 2 years Current Complaints weakness, decreased mobility History of Current Condition wants to be more mobile at home, walks with walker at home 1 fall over the past year . Doesn't walk beyond bed to bath or chair; states I don't have anything to walk for. Pandemic as well as weather has affected her mobility. Max walking 50 ft, uses 's cane and holds onto . Does own self-care. For fun: reads, watches movie. Had started going to gym for 20 min on Nu-Step 2-3x/wk. No exercise bike at home, and does minimal activity. Had strong cold over past month so hasn't been to the gym for 1 month. Treatment Goals Patient/Caregiver Goals Doing ok, went to pool with her yesterday; that was great. Did some of the exercises also over weekd; Im thinking about it. PT-OP-D Balance Start: 12/30/21 10:34 Freq: Status: Active Protocol: Document 12/30/21 10:31 SAK (Rec: 01/03/22 17:23 [facility] [id number]) OP-PT Balance Assessment Sitting Balance Static Sitting Balance Ability Good Dynamic Sitting Balance Ability Good Standing Balance Static Standing Balance Ability Poor Dynamic Standing Balance Ability Poor Balance Tests Single Limb Standing Single Limb- Right unable Single Limb- Left unable Semi-Tandem Standing Semi-Tandem Standing Balance unable without assistance Tandem Tandem Standing unable without assistance Tinetti Balance Assessment Sitting Balance Sitting Balance Steady, safe Arising from Chair Ability to Arise Able, uses arms to help Attempts to Arise Able, requires >1 attempt Standing Balance Immediate Standing Balance Steady with support Standing Balance Steady, wide stance Nudged Response Begins to fall Standing with Eyes Closed Steady Turning Step Pattern Turning 360 Degrees Continuous steps Stability Turning 360 Degrees Unsteady, grabs/staggers Sitting Down Sitting Down Uses arms or unsteady Gait and Step Initiation of Gait Hesitancy, mult. attempts Right Foot Step Length Does not pass stance ft. Right Foot Step Height Does not clear floor Left Foot Step Length Does not pass stance foot Left Foot Step Height Does not clear floor Step Description Step Symmetry Step length not equal Step Continuity Steps appear continuous Gait Description Path Description Mild/moderate deviation Trunk Description Marked sway or uses aide Walking Stance Heels apart Scoring and Interpretation Tinetti Composite Score (points) 10 Interpretation of Scores High risk for falls(< 19) Vann Fall Scale Copyright Permission PT-OP-E Functional Tests Start: 12/30/21 10:34 Freq: Status: Active Protocol: Document 12/30/21 10:31 SAK (Rec: 01/03/22 17:23 [facility] [id number]) Functional Tests 6 Minute Walk Test Distance 121 ft Device Used SPC Comments slow, shuffling Five Times Sit to Stand Test Comments unable to complete, too fatigued Timed Up and Go (TUG) Comments next session PT-OP-G Mobility & Gait Start: 12/30/21 10:34 Freq: Status: Active Protocol: Document 12/30/21 10:31 SAK (Rec: 01/03/22 17:23 [facility] [id number]) OP Mobility Evaluation Bed Mobility Supine to and from Sit labored but indep Transfers Sit to Stand SB to mod assist OP Gait Assessment Gait Gait Assistance Required: Contact Guard Assist Distance (Feet) 121 Assistive Devices Assistive Device Front Wheeled Walker Gait Deviations General Gait Pattern Decreased Stride Length, Decreased Feet Clearance, Flexed Trunk,Wide Based Gait Factors Limiting Gait Function Factors Limiting Gait Function Decreased Activity Tolerance, Decreased Strength Comments Gait Comments Very slow, shuffling gait using FWW. PT-OP-J Posture/Palpation/Skin Start: 12/30/21 10:34 Freq: Status: Active Protocol: Document 12/30/21 10:31 SAK (Rec: 01/03/22 17:23 [facility] [id number]) Posture Evaluation Position Standing Head/C-Spine Posture Forward Head T-Spine Posture Increased Kyphosis Scapula Posture (L) Protracted,(R) Protracted Arm Posture (L) Internally Rotated,(R) Internally Rotated Pelvis Posture Posterior Tilted PT-OP-K Range of Motion Start: 12/30/21 10:34 Freq: Status: Active Protocol: Document 12/30/21 10:31 [facility] (Rec: 01/03/22 17:23 [facility] [id number]) Shoulder Goniometric Range of Motion Shoulder Left Shoulder ROM WFL Yes PT-OP-M Strength Start: 12/30/21 10:34 Freq: Status: Active Protocol: Document 12/30/21 10:31 [facility] (Rec: 01/03/22 17:23 [facility] [id number]) Shoulder Strength Shoulder Manual Muscle Testing Right Flexion 4- Good- Abduction (C5) 3+ Fair+ Left Comments 4+/5 throughout Elbow/Forearm Strength Elbow and Forearm Manual Muscle Testing Right Flexion (C6) 4 Good Extension (C7) 4 Good Left Flexion (C6) 4+ Good+ Extension (C7) 4+ Good+ Hip Strength Hip Manual Muscle Testing Right Flexion (L2) 3- Fair- Extension (S1) 3- Fair- Abduction 3- Fair- Adduction 3- Fair- Internal Rotation 3+ Fair+ Left Flexion (L2) 4 Good Extension (S1) 4 Good External Rotation 4- Good- Internal Rotation 4 Good Knee Strength Knee Manual Muscle Testing Right Flexion (S2) 4 Good Extension (L3) 4 Good Left Flexion (S2) 5 Normal Extension (L3) 5 Normal Ankle/Foot Strength Ankle and Foot Manual Muscle Testing Right Dorsiflexion (L4) 4- Good- Plantarflexion (S1) 4- Good- Left Dorsiflexion (L4) 4+ Good+ Plantarflexion (S1) 4+ Good+ PT-OP-Q Treatments Start: 12/30/21 10:34 Freq: Status: Active Protocol: Document 01/10/22 09:03 [facility] (Rec: 01/10/22 09:51 [facility] [id number]) Cardio Equipment Recumbent Stepper (Sci-Fit) Duration (Minutes) 5 Resistance 1 Seat Position 11 Other 0.42 miles, cues to inc rpm, max 47 Therapeutic Exercises Standing Exercises step touch Equipment Used metronome 60 Reps/Minutes 1 min Comments unilateral UE support bar left Gait Training Gait Activity 2 Description level Device Used single point cane Level of Assistance min assist Surface firm Distance/Duration 75' x 2, metronome 72 bpm Treatment Focus safety, decreased UE support Comments also 15' x 1 end of session unable to keep up with 72 bpm. Neuro Re-Education Treatment Balance Activities hurdles Reps/Duration 5 hurdles x 4 Comments parallel bars carl UE support balloon volleyball Reps/Duration 3 min Comments parallel bars, cues for dec UE support, CG to min assist with gait belt step touch Equipment 6 step Reps/Duration 10x ea Comments unilateral UE support bar metronome 68 bpm step outs Details forward, back, side Reps/Duration 10 x ea Comments bar one side, cane other side metronome 60 bpm foam stand Surface blue square foam Reps/Duration 5 min Comments with weight shifts toward toes , heals. CG to mod assist; loses balance backward Self-Care/Home Management Treatment Education Other Education Continue HEP, go to pool as able, make appoiintment for new glassess. PT-OP-T Assessment and Plan Start: 12/30/21 10:34 Freq: Status: Active Protocol: Document 01/10/22 09:03 [facility] (Rec: 01/10/22 09:51 [facility] [id number]) Physical Therapy Assessment Impairments Impairments Activity Tolerance,Functional Mobility,Gait,Strength, Transfers Goals activity tolerance Impairment patient not able to cook or do art work due to decreased activity tolerance Impairment also unable to garden [facility] Goal (LTG) Patient will be able to cook simple meal, do light gardening tasks, and be able to resume some art activity at least 3 days per week. LTG Duration 04/03/22 strength Impairment weakness carl LE's right greater than left Short Term Goal (STG) Patient will be instructed in a progressive HEP for purposes of LE strengthening STG Duration 01/14/22 [facility] Goal (LTG) Patient will demonstrate improved functional strength as evidenced by ability to transfer sit to stand from standard height stair without the use of her UE's. LTG Duration 04/03/22 balance Impairment Tinetti gait and balance assessment score 10/28 Impairment high risk for falls Short Term Goal (STG) patient will be instructed in HEP for purposes of balance improvement STG Duration 01/28/22 [facility] Goal (LTG) Improve Tinetti score to at least 17/28 as measure of reduced fall risk LTG Duration 04/03/22 gait Impairment 6 min walk test 121ft with front wheeled walker Short Term Goal (STG) Improve 6 min walk test to at least 175 ft with FWW STG Duration 01/28/22 [facility] Goal (LTG) Patient will be able to ambulate at least 250' in 6 minutes using least restrictive device LTG Duration 04/03/22 Assessment Summary Assessment Able to increase speed of gait , 2nd trial best, fatigued end of session. Frequent rest breaks during session. Balloon volleyball 75% able to do without UE support. Loses balance backward standing on blue foam requ min assist and cues. Improved ease of sit to stand noted today. Physical Therapy Plan Frequency and Duration Frequency of Treatment 2x/Week Duration of Treatment 12 weeks Plan of Care Start Date 12/30/21 Plan of Care End Date 04/03/22 Therapeutic Interventions Therapeutic Interventions Aquatic Therapy,Gait Training, Home Exercise Program,Manual Therapy,Neuromuscular Re- education,Patient/Caregiver Education,Self-Care/Home Management,Soft Tissue Mobilization,Taping, Therapeutic Activities, Therapeutic Exercises Modalities Cold Pack/Ice Massage,Hot Packs Next Visit Focus/Plan Next Note Type Treatment Note Next Visit Plan Continue to work on sit to stand from elevated surface to allow her to do without UE support, lower as able with education for more efficient movement, improved functional strength and balance. Continue progression of ther ex for strengthening, balance retraining and gait training with emphasis on increased speed of movement with gait.
--- NOTE | 2022-01-12 13:58 | PT.OTN ---
Current Diagnoses Difficulty in walking, not elsewhere classified (01/12/22) Unspecified abnormalities of gait and mobility (01/12/22) Weakness (01/12/22) History of falling (01/12/22) Physical Therapy Treatment Note PT-OP-A Visit Information Start: 12/30/21 10:34 Freq: Status: Active Protocol: Document 01/12/22 12:05 [facility] (Rec: 01/12/22 12:55 [facility] [id number]) Out-Patient Physical Therapy Visit Information Visit Information Visit Type Treatment Note Visit Start Time 12:05 Visit Stop Time 12:50 Total Visit Minutes 45 Visit Number 5 PT-OP-B Current Condition Start: 12/30/21 10:34 Freq: Status: Active Protocol: Document 01/10/22 09:03 SAK (Rec: 01/10/22 09:51 [facility] [id number]) Current Condition History of Current Condition Onset Date 2 years Current Complaints weakness, decreased mobility History of Current Condition wants to be more mobile at home, walks with walker at home 1 fall over the past year . Doesn't walk beyond bed to bath or chair; states I don't have anything to walk for. Pandemic as well as weather has affected her mobility. Max walking 50 ft, uses 's cane and holds onto . Does own self-care. For fun: reads, watches movie. Had started going to gym for 20 min on Nu-Step 2-3x/wk. No exercise bike at home, and does minimal activity. Had strong cold over past month so hasn't been to the gym for 1 month. Treatment Goals Patient/Caregiver Goals Doing ok, went to pool with her yesterday; that was great. Did some of the exercises also over weekd; Im thinking about it. PT-OP-C Subjective Start: 12/30/21 10:34 Freq: Status: Active Protocol: Document 01/12/22 12:05 [facility] (Rec: 01/12/22 12:55 [facility] [id number]) OP-PT Subjective Patient Comments Patient Comments pt reports she is trying to do her exercises a little bit at home. She is walking from the chair in the living room to the bathroom and back. The deck is a nice place to walk but she doesn't lke to go out when its harmon and raining. She reports really liking the pool when her took her to the pool. Patient Reported Progress Same PT-OP-D Balance Start: 12/30/21 10:34 Freq: Status: Active Protocol: Document 12/30/21 10:31 [facility] (Rec: 01/03/22 17:23 [facility] [id number]) OP-PT Balance Assessment Sitting Balance Static Sitting Balance Ability Good Dynamic Sitting Balance Ability Good Standing Balance Static Standing Balance Ability Poor Dynamic Standing Balance Ability Poor Balance Tests Single Limb Standing Single Limb- Right unable Single Limb- Left unable Semi-Tandem Standing Semi-Tandem Standing Balance unable without assistance Tandem Tandem Standing unable without assistance Tinetti Balance Assessment Sitting Balance Sitting Balance Steady, safe Arising from Chair Ability to Arise Able, uses arms to help Attempts to Arise Able, requires >1 attempt Standing Balance Immediate Standing Balance Steady with support Standing Balance Steady, wide stance Nudged Response Begins to fall Standing with Eyes Closed Steady Turning Step Pattern Turning 360 Degrees Continuous steps Stability Turning 360 Degrees Unsteady, grabs/staggers Sitting Down Sitting Down Uses arms or unsteady Gait and Step Initiation of Gait Hesitancy, mult. attempts Right Foot Step Length Does not pass stance ft. Right Foot Step Height Does not clear floor Left Foot Step Length Does not pass stance foot Left Foot Step Height Does not clear floor Step Description Step Symmetry Step length not equal Step Continuity Steps appear continuous Gait Description Path Description Mild/moderate deviation Trunk Description Marked sway or uses aide Walking Stance Heels apart Scoring and Interpretation Tinetti Composite Score (points) 10 Interpretation of Scores High risk for falls(< 19) Vann Fall Scale Copyright Permission PT-OP-E Functional Tests Start: 12/30/21 10:34 Freq: Status: Active Protocol: Document 12/30/21 10:31 [facility] (Rec: 01/03/22 17:23 [facility] [id number]) Functional Tests 6 Minute Walk Test Distance 121 ft Device Used SPC Comments slow, shuffling Five Times Sit to Stand Test Comments unable to complete, too fatigued Timed Up and Go (TUG) Comments next session PT-OP-G Mobility & Gait Start: 12/30/21 10:34 Freq: Status: Active Protocol: Document 12/30/21 10:31 [facility] (Rec: 01/03/22 17:23 [facility] [id number]) OP Mobility Evaluation Bed Mobility Supine to and from Sit labored but indep Transfers Sit to Stand SB to mod assist OP Gait Assessment Gait Gait Assistance Required: Contact Guard Assist Distance (Feet) 121 Assistive Devices Assistive Device Front Wheeled Walker Gait Deviations General Gait Pattern Decreased Stride Length, Decreased Feet Clearance, Flexed Trunk,Wide Based Gait Factors Limiting Gait Function Factors Limiting Gait Function Decreased Activity Tolerance, Decreased Strength Comments Gait Comments Very slow, shuffling gait using FWW. PT-OP-J Posture/Palpation/Skin Start: 12/30/21 10:34 Freq: Status: Active Protocol: Document 12/30/21 10:31 [facility] (Rec: 01/03/22 17:23 [facility] [id number]) Posture Evaluation Position Standing Head/C-Spine Posture Forward Head T-Spine Posture Increased Kyphosis Scapula Posture (L) Protracted,(R) Protracted Arm Posture (L) Internally Rotated,(R) Internally Rotated Pelvis Posture Posterior Tilted PT-OP-K Range of Motion Start: 12/30/21 10:34 Freq: Status: Active Protocol: Document 12/30/21 10:31 [facility] (Rec: 01/03/22 17:23 [facility] [id number]) Shoulder Goniometric Range of Motion Shoulder Left Shoulder ROM WFL Yes PT-OP-M Strength Start: 12/30/21 10:34 Freq: Status: Active Protocol: Document 12/30/21 10:31 [facility] (Rec: 01/03/22 17:23 [facility] [id number]) Shoulder Strength Shoulder Manual Muscle Testing Right Flexion 4- Good- Abduction (C5) 3+ Fair+ Left Comments 4+/5 throughout Elbow/Forearm Strength Elbow and Forearm Manual Muscle Testing Right Flexion (C6) 4 Good Extension (C7) 4 Good Left Flexion (C6) 4+ Good+ Extension (C7) 4+ Good+ Hip Strength Hip Manual Muscle Testing Right Flexion (L2) 3- Fair- Extension (S1) 3- Fair- Abduction 3- Fair- Adduction 3- Fair- Internal Rotation 3+ Fair+ Left Flexion (L2) 4 Good Extension (S1) 4 Good External Rotation 4- Good- Internal Rotation 4 Good Knee Strength Knee Manual Muscle Testing Right Flexion (S2) 4 Good Extension (L3) 4 Good Left Flexion (S2) 5 Normal Extension (L3) 5 Normal Ankle/Foot Strength Ankle and Foot Manual Muscle Testing Right Dorsiflexion (L4) 4- Good- Plantarflexion (S1) 4- Good- Left Dorsiflexion (L4) 4+ Good+ Plantarflexion (S1) 4+ Good+ PT-OP-Q Treatments Start: 12/30/21 10:34 Freq: Status: Active Protocol: Document 01/12/22 12:05 [facility] (Rec: 01/12/22 12:55 [facility] [id number]) Cardio Equipment Recumbent Stepper (Sci-Fit) Duration (Minutes) 5 Resistance 1 Seat Position 11 Other 0.42 miles, cues to inc rpm, max 47 Therapeutic Exercises Sitting Exercises diagonal reach Reps/Minutes 5x ea Comments for highest apple chopsticks legs Sitting Exercise Name adduction to abduction and back to add Reps/Minutes 2 min sit to stand Resistance 2 pillows Reps/Minutes 6x Comments cues for nose over toes Standing Exercises standing DF/PF Reps/Minutes x 20 in parallel bars standing calf stretch Reps/Minutes 2 x 30 sec each side standing scapula retraction Reps/Minutes x 10 reps step touch Equipment Used metronome 60 Reps/Minutes 1 min Comments unilateral UE support bar left Gait Training Gait Activity 2 Description level Device Used single point cane Level of Assistance min assist Surface firm Distance/Duration 75' x 2, metronome 72 bpm Treatment Focus safety, decreased UE support Neuro Re-Education Treatment Balance Activities step touch Equipment 6 step Reps/Duration 10x ea Comments unilateral UE support bar metronome 68 bpm foam stand Surface blue square foam Reps/Duration 5 min Comments with weight shifts toward toes , heals. CG to mod assist; loses balance backward PT-OP-T Assessment and Plan Start: 12/30/21 10:34 Freq: Status: Active Protocol: Document 01/12/22 12:05 [facility] (Rec: 01/12/22 12:55 [facility] [id number]) Physical Therapy Assessment Assessment Summary Assessment pt would like to do aquatic therapy as part of her PT. She went in the pool with her and really liked it. I saw that this has been written into her plan of care so I talked with Tenisha about stopping at the front to schedule this today or to get on the waiting list for the pool. Tenisha did fatigue quickly and we took frequent rest breaks today. Physical Therapy Plan Frequency and Duration Frequency of Treatment 2x/Week Duration of Treatment 12 weeks Plan of Care Start Date 12/30/21 Plan of Care End Date 04/03/22 Therapeutic Interventions Therapeutic Interventions Aquatic Therapy,Gait Training, Home Exercise Program,Manual Therapy,Neuromuscular Re- education,Patient/Caregiver Education,Self-Care/Home Management,Soft Tissue Mobilization,Taping, Therapeutic Activities, Therapeutic Exercises Modalities Cold Pack/Ice Massage,Hot Packs Next Visit Focus/Plan Next Note Type Treatment Note Next Visit Plan continue to work on progression of exercises, balance and gait, Thoracic mobility, sit-stand. Work on increased speed of movement with gait.
--- NOTE | 2022-01-18 14:20 | PT.OTN ---
Current Diagnoses Difficulty in walking, not elsewhere classified (01/18/22) Unspecified abnormalities of gait and mobility (01/18/22) Weakness (01/18/22) History of falling (01/18/22) Physical Therapy Treatment Note PT-OP-A Visit Information Start: 12/30/21 10:34 Freq: Status: Active Protocol: Document 01/18/22 14:13 [facility] (Rec: 01/18/22 14:20 [facility] [id number]) Out-Patient Physical Therapy Visit Information Visit Information Visit Type Treatment Note Visit Start Time 11:15 Visit Stop Time 12:00 Total Visit Minutes 45 Visit Number 6 PT-OP-B Current Condition Start: 12/30/21 10:34 Freq: Status: Active Protocol: Document 01/10/22 09:03 [facility] (Rec: 01/10/22 09:51 [facility] [id number]) Current Condition History of Current Condition Onset Date 2 years Current Complaints weakness, decreased mobility History of Current Condition wants to be more mobile at home, walks with walker at home 1 fall over the past year . Doesn't walk beyond bed to bath or chair; states I don't have anything to walk for. Pandemic as well as weather has affected her mobility. Max walking 50 ft, uses 's cane and holds onto . Does own self-care. For fun: reads, watches movie. Had started going to gym for 20 min on Nu-Step 2-3x/wk. No exercise bike at home, and does minimal activity. Had strong cold over past month so hasn't been to the gym for 1 month. Treatment Goals Patient/Caregiver Goals Doing ok, went to pool with her yesterday; that was great. Did some of the exercises also over weekd; Im thinking about it. PT-OP-C Subjective Start: 12/30/21 10:34 Freq: Status: Active Protocol: Document 01/18/22 14:13 [facility] (Rec: 01/18/22 14:20 [facility] [id number]) OP-PT Subjective Patient Comments Patient Comments Tenisha notes she has been out on her deck some trying to do her exercises and walk. PT-OP-D Balance Start: 12/30/21 10:34 Freq: Status: Active Protocol: Document 12/30/21 10:31 [facility] (Rec: 01/03/22 17:23 [facility] [id number]) OP-PT Balance Assessment Sitting Balance Static Sitting Balance Ability Good Dynamic Sitting Balance Ability Good Standing Balance Static Standing Balance Ability Poor Dynamic Standing Balance Ability Poor Balance Tests Single Limb Standing Single Limb- Right unable Single Limb- Left unable Semi-Tandem Standing Semi-Tandem Standing Balance unable without assistance Tandem Tandem Standing unable without assistance Tinetti Balance Assessment Sitting Balance Sitting Balance Steady, safe Arising from Chair Ability to Arise Able, uses arms to help Attempts to Arise Able, requires >1 attempt Standing Balance Immediate Standing Balance Steady with support Standing Balance Steady, wide stance Nudged Response Begins to fall Standing with Eyes Closed Steady Turning Step Pattern Turning 360 Degrees Continuous steps Stability Turning 360 Degrees Unsteady, grabs/staggers Sitting Down Sitting Down Uses arms or unsteady Gait and Step Initiation of Gait Hesitancy, mult. attempts Right Foot Step Length Does not pass stance ft. Right Foot Step Height Does not clear floor Left Foot Step Length Does not pass stance foot Left Foot Step Height Does not clear floor Step Description Step Symmetry Step length not equal Step Continuity Steps appear continuous Gait Description Path Description Mild/moderate deviation Trunk Description Marked sway or uses aide Walking Stance Heels apart Scoring and Interpretation Tinetti Composite Score (points) 10 Interpretation of Scores High risk for falls(< 19) Vann Fall Scale Copyright Permission PT-OP-E Functional Tests Start: 12/30/21 10:34 Freq: Status: Active Protocol: Document 12/30/21 10:31 [facility] (Rec: 01/03/22 17:23 [facility] [id number]) Functional Tests 6 Minute Walk Test Distance 121 ft Device Used SPC Comments slow, shuffling Five Times Sit to Stand Test Comments unable to complete, too fatigued Timed Up and Go (TUG) Comments next session PT-OP-G Mobility & Gait Start: 12/30/21 10:34 Freq: Status: Active Protocol: Document 12/30/21 10:31 [facility] (Rec: 01/03/22 17:23 [facility] [id number]) OP Mobility Evaluation Bed Mobility Supine to and from Sit labored but indep Transfers Sit to Stand SB to mod assist OP Gait Assessment Gait Gait Assistance Required: Contact Guard Assist Distance (Feet) 121 Assistive Devices Assistive Device Front Wheeled Walker Gait Deviations General Gait Pattern Decreased Stride Length, Decreased Feet Clearance, Flexed Trunk,Wide Based Gait Factors Limiting Gait Function Factors Limiting Gait Function Decreased Activity Tolerance, Decreased Strength Comments Gait Comments Very slow, shuffling gait using FWW. PT-OP-J Posture/Palpation/Skin Start: 12/30/21 10:34 Freq: Status: Active Protocol: Document 12/30/21 10:31 [facility] (Rec: 01/03/22 17:23 [facility] [id number]) Posture Evaluation Position Standing Head/C-Spine Posture Forward Head T-Spine Posture Increased Kyphosis Scapula Posture (L) Protracted,(R) Protracted Arm Posture (L) Internally Rotated,(R) Internally Rotated Pelvis Posture Posterior Tilted PT-OP-K Range of Motion Start: 12/30/21 10:34 Freq: Status: Active Protocol: Document 12/30/21 10:31 [facility] (Rec: 01/03/22 17:23 [facility] [id number]) Shoulder Goniometric Range of Motion Shoulder Left Shoulder ROM WFL Yes PT-OP-M Strength Start: 12/30/21 10:34 Freq: Status: Active Protocol: Document 12/30/21 10:31 [facility] (Rec: 01/03/22 17:23 [facility] [id number]) Shoulder Strength Shoulder Manual Muscle Testing Right Flexion 4- Good- Abduction (C5) 3+ Fair+ Left Comments 4+/5 throughout Elbow/Forearm Strength Elbow and Forearm Manual Muscle Testing Right Flexion (C6) 4 Good Extension (C7) 4 Good Left Flexion (C6) 4+ Good+ Extension (C7) 4+ Good+ Hip Strength Hip Manual Muscle Testing Right Flexion (L2) 3- Fair- Extension (S1) 3- Fair- Abduction 3- Fair- Adduction 3- Fair- Internal Rotation 3+ Fair+ Left Flexion (L2) 4 Good Extension (S1) 4 Good External Rotation 4- Good- Internal Rotation 4 Good Knee Strength Knee Manual Muscle Testing Right Flexion (S2) 4 Good Extension (L3) 4 Good Left Flexion (S2) 5 Normal Extension (L3) 5 Normal Ankle/Foot Strength Ankle and Foot Manual Muscle Testing Right Dorsiflexion (L4) 4- Good- Plantarflexion (S1) 4- Good- Left Dorsiflexion (L4) 4+ Good+ Plantarflexion (S1) 4+ Good+ PT-OP-Q Treatments Start: 12/30/21 10:34 Freq: Status: Active Protocol: Document 01/18/22 14:13 [facility] (Rec: 01/18/22 14:20 [facility] [id number]) Cardio Equipment Recumbent Elliptical (Biodex) Duration (Minutes) 5 Resistance 3 Seat Position 9 Therapeutic Exercises Sitting Exercises diagonal reach Reps/Minutes 5x ea Comments for highest apple sit to stand Reps/Minutes 6x Comments cues for nose over toes Standing Exercises standing DF/PF Reps/Minutes x 20 in parallel bars standing calf stretch Reps/Minutes 2 x 30 sec each side step touch Equipment Used metronome 60 Reps/Minutes 1 min Comments unilateral UE support bar left Gait Training Gait Activity 2 Description level Device Used single point cane Level of Assistance min assist Surface firm Distance/Duration 75x 1 Treatment Focus safety, decreased UE support Comments no metronome today as Tenisha was feeling more fatigued and couldn't keep up with the pace of 72 bpm. PT-OP-T Assessment and Plan Start: 12/30/21 10:34 Freq: Status: Active Protocol: Document 01/18/22 14:13 [facility] (Rec: 01/18/22 14:20 [facility] [id number]) Physical Therapy Assessment Assessment Summary Assessment pt wasn't able to keep up with same speed of gait today but notes she is a little fatigued today. She did take frequent rest breaks but was able to tolerate all other exercises and balance activites. Cues given to raise head with balance and gait. Physical Therapy Plan Frequency and Duration Frequency of Treatment 2x/Week Duration of Treatment 12 weeks Plan of Care Start Date 12/30/21 Plan of Care End Date 04/03/22 Therapeutic Interventions Therapeutic Interventions Aquatic Therapy,Gait Training, Home Exercise Program,Manual Therapy,Neuromuscular Re- education,Patient/Caregiver Education,Self-Care/Home Management,Soft Tissue Mobilization,Taping, Therapeutic Activities, Therapeutic Exercises Modalities Cold Pack/Ice Massage,Hot Packs Next Visit Focus/Plan Next Note Type Treatment Note Next Visit Plan continue to work on progression of exercises, balance and gait, Thoracic mobility, sit-stand. Work on increased speed of movement with gait.
--- NOTE | 2022-01-27 18:44 | PT.OTN ---
Current Diagnoses Difficulty in walking, not elsewhere classified (01/27/22) Unspecified abnormalities of gait and mobility (01/27/22) Weakness (01/27/22) History of falling (01/27/22) Physical Therapy Treatment Note PT-OP-A Visit Information Start: 12/30/21 10:34 Freq: Status: Active Protocol: Document 01/27/22 10:32 [facility] (Rec: 01/27/22 11:15 [facility] [id number]) Out-Patient Physical Therapy Visit Information Visit Information Visit Type Treatment Note Visit Start Time 10:30 Visit Stop Time 11:15 Total Visit Minutes 45 Visit Number 7 PT-OP-B Current Condition Start: 12/30/21 10:34 Freq: Status: Active Protocol: Document 01/10/22 09:03 [facility] (Rec: 01/10/22 09:51 [facility]AK [id number]) Current Condition History of Current Condition Onset Date 2 years Current Complaints weakness, decreased mobility History of Current Condition wants to be more mobile at home, walks with walker at home 1 fall over the past year . Doesn't walk beyond bed to bath or chair; states I don't have anything to walk for. Pandemic as well as weather has affected her mobility. Max walking 50 ft, uses 's cane and holds onto . Does own self-care. For fun: reads, watches movie. Had started going to gym for 20 min on Nu-Step 2-3x/wk. No exercise bike at home, and does minimal activity. Had strong cold over past month so hasn't been to the gym for 1 month. Treatment Goals Patient/Caregiver Goals Doing ok, went to pool with her yesterday; that was great. Did some of the exercises also over weekd; Im thinking about it. PT-OP-C Subjective Start: 12/30/21 10:34 Freq: Status: Active Protocol: Document 01/27/22 10:32 [facility] (Rec: 01/27/22 11:15 [facility] [id number]) OP-PT Subjective Patient Comments Patient Comments Tenisha notes she had a massage yesterday and it was wonderful. She hasn't been working in her garden but has been out on her deck cleaning up the geranium pots PT-OP-D Balance Start: 12/30/21 10:34 Freq: Status: Active Protocol: Document 12/30/21 10:31 [facility] (Rec: 01/03/22 17:23 [facility] [id number]) OP-PT Balance Assessment Sitting Balance Static Sitting Balance Ability Good Dynamic Sitting Balance Ability Good Standing Balance Static Standing Balance Ability Poor Dynamic Standing Balance Ability Poor Balance Tests Single Limb Standing Single Limb- Right unable Single Limb- Left unable Semi-Tandem Standing Semi-Tandem Standing Balance unable without assistance Tandem Tandem Standing unable without assistance Tinetti Balance Assessment Sitting Balance Sitting Balance Steady, safe Arising from Chair Ability to Arise Able, uses arms to help Attempts to Arise Able, requires >1 attempt Standing Balance Immediate Standing Balance Steady with support Standing Balance Steady, wide stance Nudged Response Begins to fall Standing with Eyes Closed Steady Turning Step Pattern Turning 360 Degrees Continuous steps Stability Turning 360 Degrees Unsteady, grabs/staggers Sitting Down Sitting Down Uses arms or unsteady Gait and Step Initiation of Gait Hesitancy, mult. attempts Right Foot Step Length Does not pass stance ft. Right Foot Step Height Does not clear floor Left Foot Step Length Does not pass stance foot Left Foot Step Height Does not clear floor Step Description Step Symmetry Step length not equal Step Continuity Steps appear continuous Gait Description Path Description Mild/moderate deviation Trunk Description Marked sway or uses aide Walking Stance Heels apart Scoring and Interpretation Tinetti Composite Score (points) 10 Interpretation of Scores High risk for falls(< 19) Vann Fall Scale Copyright Permission PT-OP-E Functional Tests Start: 12/30/21 10:34 Freq: Status: Active Protocol: Document 12/30/21 10:31 [facility] (Rec: 01/03/22 17:23 [facility] [id number]) Functional Tests 6 Minute Walk Test Distance 121 ft Device Used SPC Comments slow, shuffling Five Times Sit to Stand Test Comments unable to complete, too fatigued Timed Up and Go (TUG) Comments next session PT-OP-G Mobility & Gait Start: 12/30/21 10:34 Freq: Status: Active Protocol: Document 12/30/21 10:31 [facility] (Rec: 01/03/22 17:23 [facility] [id number]) OP Mobility Evaluation Bed Mobility Supine to and from Sit labored but indep Transfers Sit to Stand SB to mod assist OP Gait Assessment Gait Gait Assistance Required: Contact Guard Assist Distance (Feet) 121 Assistive Devices Assistive Device Front Wheeled Walker Gait Deviations General Gait Pattern Decreased Stride Length, Decreased Feet Clearance, Flexed Trunk,Wide Based Gait Factors Limiting Gait Function Factors Limiting Gait Function Decreased Activity Tolerance, Decreased Strength Comments Gait Comments Very slow, shuffling gait using FWW. PT-OP-J Posture/Palpation/Skin Start: 12/30/21 10:34 Freq: Status: Active Protocol: Document 12/30/21 10:31 [facility] (Rec: 01/03/22 17:23 [facility] [id number]) Posture Evaluation Position Standing Head/C-Spine Posture Forward Head T-Spine Posture Increased Kyphosis Scapula Posture (L) Protracted,(R) Protracted Arm Posture (L) Internally Rotated,(R) Internally Rotated Pelvis Posture Posterior Tilted PT-OP-K Range of Motion Start: 12/30/21 10:34 Freq: Status: Active Protocol: Document 12/30/21 10:31 [facility] (Rec: 01/03/22 17:23 [facility] [id number]) Shoulder Goniometric Range of Motion Shoulder Left Shoulder ROM WFL Yes PT-OP-M Strength Start: 12/30/21 10:34 Freq: Status: Active Protocol: Document 12/30/21 10:31 [facility] (Rec: 01/03/22 17:23 [facility] [id number]) Shoulder Strength Shoulder Manual Muscle Testing Right Flexion 4- Good- Abduction (C5) 3+ Fair+ Left Comments 4+/5 throughout Elbow/Forearm Strength Elbow and Forearm Manual Muscle Testing Right Flexion (C6) 4 Good Extension (C7) 4 Good Left Flexion (C6) 4+ Good+ Extension (C7) 4+ Good+ Hip Strength Hip Manual Muscle Testing Right Flexion (L2) 3- Fair- Extension (S1) 3- Fair- Abduction 3- Fair- Adduction 3- Fair- Internal Rotation 3+ Fair+ Left Flexion (L2) 4 Good Extension (S1) 4 Good External Rotation 4- Good- Internal Rotation 4 Good Knee Strength Knee Manual Muscle Testing Right Flexion (S2) 4 Good Extension (L3) 4 Good Left Flexion (S2) 5 Normal Extension (L3) 5 Normal Ankle/Foot Strength Ankle and Foot Manual Muscle Testing Right Dorsiflexion (L4) 4- Good- Plantarflexion (S1) 4- Good- Left Dorsiflexion (L4) 4+ Good+ Plantarflexion (S1) 4+ Good+ PT-OP-Q Treatments Start: 12/30/21 10:34 Freq: Status: Active Protocol: Document 01/27/22 10:32 [facility] (Rec: 01/27/22 11:15 [facility] [id number]) Cardio Equipment Recumbent Elliptical (Biodex) Duration (Minutes) 5 Resistance 3 Seat Position 9 Gym Equipment Shuttle Recovery Unilateral Squats Resistance 37# Shuttle Recovery Platform Stable Reps/Time x25 Bilateral Squats Resistance 50 Shuttle Recovery Platform Stable Reps/Time x25 Therapeutic Ball Wall-ball walk up Exercise Details ball walk-up wall Ball Size/Color Blue - 45 cm Body Position Standing Reps/Duration x5 Comments forced thoracic extension Therapeutic Exercises Sitting Exercises sit to stand Reps/Minutes 6x Comments cues for nose over toes Standing Exercises standing DF/PF Reps/Minutes x 20 in parallel bars Gait Training Gait Activity 2 Description level Device Used single point cane Level of Assistance min assist Surface firm Distance/Duration 75x 2 Treatment Focus safety, decreased UE support Neuro Re-Education Treatment Balance Activities step touch Equipment 6 step Reps/Duration 10x ea Comments unilateral UE support bar metronome 68 bpm foam stand Surface blue square foam Reps/Duration 5 min Comments with weight shifts toward toes , heals. CG to mod assist; loses balance backward PT-OP-T Assessment and Plan Start: 12/30/21 10:34 Freq: Status: Active Protocol: Document 01/27/22 10:32 [facility] (Rec: 01/27/22 11:15 [facility] [id number]) Physical Therapy Assessment Goals activity tolerance Impairment patient not able to cook or do art work due to decreased activity tolerance Impairment also unable to garden [facility] Goal (LTG) Patient will be able to cook simple meal, do light gardening tasks, and be able to resume some art activity at least 3 days per week. LTG Duration 04/03/22 strength Impairment weakness carl LE's right greater than left Short Term Goal (STG) Patient will be instructed in a progressive HEP for purposes of LE strengthening STG Duration 01/14/22 [facility] Goal (LTG) Patient will demonstrate improved functional strength as evidenced by ability to transfer sit to stand from standard height stair without the use of her UE's. LTG Duration 04/03/22 balance Impairment Tinetti gait and balance assessment score 10/28 Impairment high risk for falls Short Term Goal (STG) patient will be instructed in HEP for purposes of balance improvement STG Duration 01/28/22 [facility] Goal (LTG) Improve Tinetti score to at least 17/28 as measure of reduced fall risk LTG Duration 04/03/22 gait Impairment 6 min walk test 121ft with front wheeled walker Short Term Goal (STG) Improve 6 min walk test to at least 175 ft with FWW STG Duration 01/28/22 [facility] Goal (LTG) Patient will be able to ambulate at least 250' in 6 minutes using least restrictive device LTG Duration 04/03/22 Assessment Summary Assessment Tenisha able to ambulate further today than last couple of visits but has not been able to use the metronome or increase her speed of gait with SPC. Tenisha needed cues to fully extend her knee on the shuttle on the right. Physical Therapy Plan Frequency and Duration Frequency of Treatment 2x/Week Duration of Treatment 12 weeks Plan of Care Start Date 12/30/21 Plan of Care End Date 04/03/22 Therapeutic Interventions Therapeutic Interventions Aquatic Therapy,Gait Training, Home Exercise Program,Manual Therapy,Neuromuscular Re- education,Patient/Caregiver Education,Self-Care/Home Management,Soft Tissue Mobilization,Taping, Therapeutic Activities, Therapeutic Exercises Modalities Cold Pack/Ice Massage,Hot Packs Next Visit Focus/Plan Next Note Type Treatment Note Next Visit Plan continue to work on progression of exercises, balance and gait, Thoracic mobility, sit-stand. Work on increased speed of movement with gait.
--- NOTE | 2022-02-15 09:23 | PT-OP ANOTE ---
cancelled PT today due to having shingles
--- NOTE | 2022-07-07 14:49 | PT.OPDS ---
Current Diagnoses Difficulty in walking, not elsewhere classified (01/27/22) Unspecified abnormalities of gait and mobility (01/27/22) Weakness (01/27/22) History of falling (01/27/22) Visit Care Team Role Provider Type Conchita Felipe PA-C Attending Provider Physician Chemistry Manager Primary Care Provider Referring Provider Specialty: Medical Address: [address] [place] [address], [facility] Email: [email or web address] Visit Number Visit Number 7 Discharge Summary PT-OP-B Current Condition Start: 12/30/21 10:34 Freq: Status: Active Protocol: Document 01/10/22 09:03 SAK (Rec: 01/10/22 09:51 [facility]AK [id number]) Current Condition History of Current Condition Onset Date 2 years Current Complaints weakness, decreased mobility History of Current Condition wants to be more mobile at home, walks with walker at home 1 fall over the past year . Doesn't walk beyond bed to bath or chair; states I don't have anything to walk for. Pandemic as well as weather has affected her mobility. Max walking 50 ft, uses 's cane and holds onto . Does own self-care. For fun: reads, watches movie. Had started going to gym for 20 min on Nu-Step 2-3x/wk. No exercise bike at home, and does minimal activity. Had strong cold over past month so hasn't been to the gym for 1 month. Treatment Goals Patient/Caregiver Goals Doing ok, went to pool with her yesterday; that was great. Did some of the exercises also over weekd; Im thinking about it. PT-OP-C Subjective Start: 12/30/21 10:34 Freq: Status: Active Protocol: Document 01/27/22 10:32 [facility] (Rec: 01/27/22 11:15 [facility] [id number]) OP-PT Subjective Patient Comments Patient Comments Tenisha notes she had a massage yesterday and it was wonderful. She hasn't been working in her garden but has been out on her deck cleaning up the geranium pots PT-OP-D Balance Start: 12/30/21 10:34 Freq: Status: Active Protocol: Document 12/30/21 10:31 SAK (Rec: 01/03/22 17:23 [facility] [id number]) OP-PT Balance Assessment Sitting Balance Static Sitting Balance Ability Good Dynamic Sitting Balance Ability Good Standing Balance Static Standing Balance Ability Poor Dynamic Standing Balance Ability Poor Balance Tests Single Limb Standing Single Limb- Right unable Single Limb- Left unable Semi-Tandem Standing Semi-Tandem Standing Balance unable without assistance Tandem Tandem Standing unable without assistance Tinetti Balance Assessment Sitting Balance Sitting Balance Steady, safe Arising from Chair Ability to Arise Able, uses arms to help Attempts to Arise Able, requires >1 attempt Standing Balance Immediate Standing Balance Steady with support Standing Balance Steady, wide stance Nudged Response Begins to fall Standing with Eyes Closed Steady Turning Step Pattern Turning 360 Degrees Continuous steps Stability Turning 360 Degrees Unsteady, grabs/staggers Sitting Down Sitting Down Uses arms or unsteady Gait and Step Initiation of Gait Hesitancy, mult. attempts Right Foot Step Length Does not pass stance ft. Right Foot Step Height Does not clear floor Left Foot Step Length Does not pass stance foot Left Foot Step Height Does not clear floor Step Description Step Symmetry Step length not equal Step Continuity Steps appear continuous Gait Description Path Description Mild/moderate deviation Trunk Description Marked sway or uses aide Walking Stance Heels apart Scoring and Interpretation Tinetti Composite Score (points) 10 Interpretation of Scores High risk for falls(< 19) Vann Fall Scale Copyright Permission PT-OP-E Functional Tests Start: 12/30/21 10:34 Freq: Status: Active Protocol: Document 12/30/21 10:31 [facility] (Rec: 01/03/22 17:23 [facility] [id number]) Functional Tests 6 Minute Walk Test Distance 121 ft Device Used SPC Comments slow, shuffling Five Times Sit to Stand Test Comments unable to complete, too fatigued Timed Up and Go (TUG) Comments next session PT-OP-G Mobility & Gait Start: 12/30/21 10:34 Freq: Status: Active Protocol: Document 12/30/21 10:31 [facility] (Rec: 01/03/22 17:23 [facility] [id number]) OP Mobility Evaluation Bed Mobility Supine to and from Sit labored but indep Transfers Sit to Stand SB to mod assist OP Gait Assessment Gait Gait Assistance Required: Contact Guard Assist Distance (Feet) 121 Assistive Devices Assistive Device Front Wheeled Walker Gait Deviations General Gait Pattern Decreased Stride Length, Decreased Feet Clearance, Flexed Trunk,Wide Based Gait Factors Limiting Gait Function Factors Limiting Gait Function Decreased Activity Tolerance, Decreased Strength Comments Gait Comments Very slow, shuffling gait using FWW. PT-OP-J Posture/Palpation/Skin Start: 12/30/21 10:34 Freq: Status: Active Protocol: Document 12/30/21 10:31 [facility] (Rec: 01/03/22 17:23 [facility] [id number]) Posture Evaluation Position Standing Head/C-Spine Posture Forward Head T-Spine Posture Increased Kyphosis Scapula Posture (L) Protracted,(R) Protracted Arm Posture (L) Internally Rotated,(R) Internally Rotated Pelvis Posture Posterior Tilted PT-OP-K Range of Motion Start: 12/30/21 10:34 Freq: Status: Active Protocol: Document 12/30/21 10:31 [facility]AK (Rec: 01/03/22 17:23 [facility] [id number]) Shoulder Goniometric Range of Motion Shoulder Left Shoulder ROM WFL Yes PT-OP-M Strength Start: 12/30/21 10:34 Freq: Status: Active Protocol: Document 12/30/21 10:31 [facility] (Rec: 01/03/22 17:23 [facility] [id number]) Shoulder Strength Shoulder Manual Muscle Testing Right Flexion 4- Good- Abduction (C5) 3+ Fair+ Left Comments 4+/5 throughout Elbow/Forearm Strength Elbow and Forearm Manual Muscle Testing Right Flexion (C6) 4 Good Extension (C7) 4 Good Left Flexion (C6) 4+ Good+ Extension (C7) 4+ Good+ Hip Strength Hip Manual Muscle Testing Right Flexion (L2) 3- Fair- Extension (S1) 3- Fair- Abduction 3- Fair- Adduction 3- Fair- Internal Rotation 3+ Fair+ Left Flexion (L2) 4 Good Extension (S1) 4 Good External Rotation 4- Good- Internal Rotation 4 Good Knee Strength Knee Manual Muscle Testing Right Flexion (S2) 4 Good Extension (L3) 4 Good Left Flexion (S2) 5 Normal Extension (L3) 5 Normal Ankle/Foot Strength Ankle and Foot Manual Muscle Testing Right Dorsiflexion (L4) 4- Good- Plantarflexion (S1) 4- Good- Left Dorsiflexion (L4) 4+ Good+ Plantarflexion (S1) 4+ Good+ PT-OP-T Assessment and Plan Start: 12/30/21 10:34 Freq: Status: Active Protocol: Document 07/07/22 14:49 [facility] (Rec: 07/07/22 14:49 SAK [id number]) Physical Therapy Plan Discharge Physical Therapy Discharge Reasons Change in Medical Status
== END 2022-07-12 09:10 | disposition home or self-care (01) ==
LOC: PHYS 10:30
PROVIDERS: PCP Physician Assistant; Referring Provider Physician Assistant; Visit Provider Physician Assistant
DX: R26.9 Unspecified abnormalities of gait and mobility (principal); Z91.81 History of falling; R53.1 Weakness; R26.2 Difficulty in walking, not elsewhere classified
CPT/HCPCS: 97110; 97112; 97162; 97535

== ENCOUNTER 2022-03-03 18:44 | Observation (INO) | payer MEDICARE, OTHER, SELFPAY ==
[2018-07-13 13:53] VITALS: BMI 25.7
[2022-03-03 18:47] VITALS: PULSE 83; O2SAT 93
[2022-03-03 18:48] VITALS: BP 138/71; PULSE 79; PULSE 80; RESP 18; TEMP 37.1; O2SAT 92; O2SAT 94; BMI 27.2
--- NOTE | 2022-03-03 18:49 | ED.WEAKNESS ---
HPI - Weakness General Chief complaint: Weakness Stated complaint: weakness Time Seen by Provider: 03/03/22 18:49 Source: patient, EMS and old records reviewed Mode of arrival: EMS Limitations: no limitations History of Present Illness HPI Narrative: This is an 81-year-old female with history of CVA and shingles diagnosed at the end of January. Patient states she is had increasing weakness in his having difficulty ambulating. She states she is been taking codeine for pain. She states no fevers or chills, no nausea or vomiting, no difficulty with speech, patient complains of pain on the right side of her chest wrapping around her back where her shingles was. She states the rash is starting to improve but still present but the pain has. Patient denies any shortness of breath. She denies any new abdominal or flank pain. No diarrhea or constipation. She denies dysuria urgency or frequency. She states she normally walks around with a walker. She states that she is appreciated one-sided weakness but that her legs just feel too weak to carry her. She states she is quit walking about a week ago with her walker. Her has been getting her to the bathroom. She denies medical issues besides stroke, she tells me no daily medications but does have a list including atorvastatin, levothyroxine and losartan as well as venlafaxine. She denies prior surgeries. States she is allergic to penicillin. No tobacco, alcohol or illicit. She states she lives with her . Related Data Home Medications Medication Instructions Recorded Confirmed famotidine 20 mg tablet 20 mg PO BID 01/10/18 02/08/22 levothyroxine 100 mcg tablet 1 tab PO MOWEFR 01/10/18 02/08/22 levothyroxine 88 mcg tablet 1 tab PO SUTUTHSA 01/10/18 02/08/22 losartan 100 mg tablet 100 mg PO DAILY 01/10/18 02/08/22 venlafaxine 37.5 mg 1 cap PO QPM 01/10/18 02/08/22 capsule,extended release 24 hr cholecalciferol (vitamin D3) 10 400 unit PO DAILY 07/13/18 02/08/22 mcg (400 unit) capsule (Vitamin D3) cyanocobalamin (vitamin B-12) 1 dose IM Q2W 07/13/18 02/08/22 1,000 mcg/mL injection solution Previous Rx's Medication Instructions Recorded atorvastatin 20 mg tablet (Lipitor) 40 mg PO BEDTIME #60 tabs 07/15/18 ondansetron HCl 4 mg tablet 4 mg PO BID-TID PRN nausea and 07/15/18 (Zofran) vomiting #20 tabs benzonatate 100 mg capsule 100 mg PO BID PRN cough #30 caps 12/14/21 Allergies Allergy/AdvReac Type Severity Reaction Status Date / Time Penicillins [PENICILLINS] Allergy Severe LESIONS IN Verified 03/03/22 18:52 HER MOUTH ciprofloxacin [CIPROFLOXACIN] Allergy Intermediate tongue Verified 03/03/22 18:52 inflammation wheat [WHEAT] Allergy Unknown ABD PAIN Verified 03/03/22 18:52 Review of Systems Review of Systems ROS Unobtainable: All systems reviewed & are unremarkable except as noted in HPI and below Patient History Medical History CVA (cerebral vascular accident) Stroke Social History household members: spouse Smoking Status: Never smoker alcohol intake: current Smoking Status: Never smoker alcohol intake frequency: a few times a month Substance Use Type: does not use Exam Narrative Exam Narrative: GEN: well nourished, well appearing female, alert and oriented, patient appears to be in mild distress. Patient seem to have some mild confusion unclear if this is her baseline. HEENT: Atraumatic, pupils are equal round reactive to light, extraocular movements are intact, nares are clear, TMs are clear with no fluid, there is no conjunctival pallor. Throat is clear without any exudates, erythema, tonsillar enlargement or uvular deviation, no facial droop. HEART: Regular rate and rhythm without murmur, clicks, rubs. LUNGS:Lungs clear to auscultation, no wheezes, rales, crackles, chest moves symmetrically ABD:bowel sounds normal, soft, non-tender, no guarding, rebound, rigidity, no masses noted, no hepatosplenomegaly :No CVA tenderness MSCL: Non-tender, no muscle atrophy, muscles strength 5/5 upper and lower extremities, full range of motion NEURO:CN 2-12 intact, sensation normal, reflexes 2/4 upper and lower extremities. finger nose finger test normal, heel mayen test normal SKIN: Patient has erythematous rash no vesicles present but tracts from the left T12 area midline wrapping around to the anterior midline. Initial Vital Signs Initial Vital Signs: Vital Signs Pulse Rate 83 03/03/22 18:47 Pulse Oximetry 93 03/03/22 18:47 Scores NIH Stroke Scale Level of Conciousness: Alert, keenly responsive Ask month/age: Answers both questions correctly. Open/close eyes, close hand: Performs both tasks correctly Best gaze horizontal: Normal Visual serrano: No visual loss Facial palsy: Normal symetrical movement Left arm drift: No drift for full 10 sec Right arm drift: No drift for full 10 sec Left leg drift: No drift for full 5 sec Right leg drift: No drift for full 5 sec Limb ataxia: Absent Sensory on face/arms/legs: Normal, no sensory loss Best language: No aphasia, normal Dysarthria: Normal Extinction or inattention: No abnormality Total NIH Stroke scale score: 0 Course Orders Ordered: ED Orders 03/03/22 18:53 CBC Auto Diff [Complete Blood Count AUTO DIFF] Stat COVID19 -Nasal RAPID/Pre-Proc Stat 03/03/22 18:56 CT head/brain wo con Stat Chest [XR chest 1V] Stat EKG-12 Lead Stat 03/03/22 20:00 CMP [Comprehensive Metabolic Panel] Stat Lipase Stat Troponin & CK Cardiac Panel Stat 03/03/22 20:56 CT abdomen pelvis w con Stat Acetaminophen (Acetaminophen 325 Mg Tablet) 650 mg PO Q6HR PRN PRN Reason: Fever/Mild Pain (1-3) Last Admin: 03/03/22 23:05 Dose: 650 mg Documented By: LEILA Ketorolac Tromethamine (Ketorolac 30 Mg/Ml Vial) 30 mg IV Q6H PRN PRN Reason: pain Stop: 03/06/22 22:35 Tramadol HCl (Tramadol 50 Mg Tablet) 50 mg PO Q4H PRN PRN Reason: Pain, Moderate (4-6) Reevaluation(s) Reevaluation #1: Spoke with patient or . Patient's states she is been alert and appropriate for herself but she is been increasingly weak. He has not appreciated lateralizing weakness himself. States she is been quite painful he notes that they increased her gabapentin to 1800 mg total daily she is taking 600 t.i.d.. He did stop her Selmer about 2-4 days ago as he thought that might be causing some of her symptoms and she was having nightmares and feeling not herself. Consultations Consultation #1: Dr. Cope, hospitalist accepts for observation. Discussed I suspect polypharmacy although lumbar radiculopathy or stroke would be on the differential although patient's NIH today 0 and she does not have any back pain on exam reviewed findings so far today. Time: 22:05 Vital Signs Vital signs: Vital Signs - 8 hr 03/03/22 18:48 03/03/22 18:47 03/03/22 18:48 Temperature 98.8 F Pulse Rate 79 83 Respiratory Rate 18 Blood Pressure 138/71 138/71 Pulse Oximetry 94 93 Oxygen Delivery Method Room Air 03/03/22 18:48 03/03/22 19:00 03/03/22 21:48 Temperature Pulse Rate 80 75 Respiratory Rate Blood Pressure 143/70 H Pulse Oximetry 92 92 Oxygen Delivery Method 03/03/22 21:48 Temperature Pulse Rate 65 Respiratory Rate Blood Pressure Pulse Oximetry 93 Oxygen Delivery Method MDM - Weakness Lab Data Result diagrams: 03/03/22 18:53 03/03/22 20:00 Labs: Lab Results 03/03/22 03/03/22 03/03/22 Range/Units 18:53 18:53 20:00 WBC 7.6 (4.5-11.0) X10^3/uL RBC 3.94 L (4.0-5.2) X10^6/uL Hgb 11.5 L (12.0-16.0) g/dL Hct 34.7 L (36-46) % MCV 88.0 (80-100) fL MCH 29.2 (26-34) PG MCHC 33.2 (30-36) % RDW 16.7 H (11.6-14.8) % Plt Count 461 H (150-400) X10^3/uL Neut % (Auto) 69.6 (50-75) % Lymph % (Auto) 16.6 L (25-40) % Knox % (Auto) 10.3 (3-14) % Eos % (Auto) 2.7 (2-4) % Baso % (Auto) 0.8 (0-2) % Neut # (Auto) 5300 (6965-7830) /uL Lymph # (Auto) 1300 (5317-4612) /uL Knox # (Auto) 800 (0-900) /uL Eos # (Auto) 200 (0-450) /uL Baso # (Auto) 100 (0-100) /uL Sodium 138 (137-145) mmol/L Potassium 4.9 (3.4-5.1) mmol/L Chloride 99 (98-107) mmol/L Carbon Dioxide 32 (22-32) mmol/L BUN 26 H (7-17) mg/dL Creatinine 0.89 (0.52-1.04) mg/dL Estimated GFR > 60 (>60) mL/min BUN/Creatinine Ratio 29.2 H (6-22) Glucose 91 (80-110) mg/dL Calcium 9.0 (8.4-10.2) mg/dL Total Bilirubin 0.5 (0.2-1.3) mg/dL AST 55 H (14-36) IU/L ALT 44 H (<35) IU/L Alkaline Phosphatase 82 (38-126) U/L Total Creatine Kinase 96 (30-135) U/L CK-MB (CK-2) TNP CK-MB (CK-2) Rel Index TNP Troponin I < 0.012 (0.01-0.034) ng/mL Total Protein 7.6 (6.3-8.2) g/dL Albumin 3.9 (3.5-5.0) g/dL Globulin 3.7 (1.7-4.1) g/dL Albumin/Globulin Ratio 1.1 (1.0-2.8) Lipase 49 (23-300) U/L SARS-CoV-2 (PCR) Negative (Negative) Urine Dip Bedside Urine Glucose Negative Bedside Urine Bilirubin - Negative Bedside Urine Ketone - Negative Urine Specific Georgiana 1.010 Bedside Urine Occult Blood - Negative Bedside Urine pH 6.5 Bedside Urine Protein - Negative Bedside Urine Urobilinogen - Negative Bedside Urine Nitrite - Negative Bedside Urine Leukocytes - Negative Esterase Imaging Data CT scan - head: Radiologist Impression: [address] [address] [address] Scan Report Signed Patient: Tenisha Mejia MR#: [id number] : 1940 Acct:[id number] Age/Sex: 81 / F Date of Service: 03/03/22 Loc: ED Accession Number: [id number] ?? Procedure: CT head/brain wo con Ordering Provider: Comfort Guzmán D.O. PROCEDURE:? CT HEAD/BRAIN WO CON ? INDICATIONS:? weakness ? TECHNIQUE:? Noncontrast 4.5 mm thick angled axial sections acquired from the foramen magnum to the vertex, with coronal and sagittal reformats.? For radiation dose reduction, the following was used:? automated exposure control, adjustment of mA and/or kV according to patient size.? ? COMPARISON:? [facility], CT, CT HEAD/BRAIN WO CON, 07/13/2018, 10:58. ? FINDINGS:? Image quality:? Excellent.? ? CSF spaces:? Basal cisterns are patent.? No extra-axial fluid collections.? Ventricles are normal in size and shape.? ? Brain:? No midline shift.? No intracranial masses or hemorrhage.? Vanegas-white matter interface is normal.? Vascular calcifications.? Moderate volume loss.? Periventricular white matter hypoattenuation likely chronic small vessel disease.? Similar encephalomalacia of the bilateral basal ganglia. ? Skull and face:? Calvarium and visualized facial bones are intact, without suspicious lesions.? Right craniotomy. ? Sinuses:? Visualized sinuses and mastoids are clear.? ? IMPRESSION:? No acute intracranial abnormality.? Old infarcts of the basal ganglia and chronic findings as above.? ? ? Consider MRI if there is high concern for ischemic event.? ? Dictated by: Cem Mueller M.D. on 03/03/2022 at 19:39 ? ? Approved by: Cem Mueller M.D. on 03/03/2022 at 19:42?? Chest x-ray: Radiologist Impression: [address] [address] XRay Report Signed Patient: Tenisha Mejia MR#: [id number] : 1940 Acct:[id number] Age/Sex: 81 / F Date of Service: 03/03/22 Loc: ED Accession Number: [id number] ?? Procedure: XR chest 1V Ordering Provider: Comfort Guzmán D.O. PROCEDURE:? XR CHEST 1V ? INDICATIONS:? weakness ? TECHNIQUE:? One view of the chest was acquired.? ? COMPARISON:? [facility], CR, XR CHEST 2V, 11/24/2020, 18:07.? [facility], CR, XR CHEST 2V, 10/21/2020, 12:57. ? FINDINGS:? ? Surgical changes and devices:? Right breast clips ? Lungs and pleura:? Lung volumes are low.? Prominence of the interstitium could be an artifact of low lung volumes.? No dense consolidation.? Atelectasis at the left base. ? Mediastinum:? Appearance of mediastinal widening may be secondary to low lung volumes.? The aorta is tortuous. ? Bones and chest wall:? No suspicious bony lesions.? Overlying soft tissues appear unremarkable.? ? IMPRESSION:? Low lung volumes.? No dense consolidation.? Interstitial prominence probably an artifact of low lung volumes, versus edema or atypical infection. ? ? Dictated by: Cem Mueller M.D. on 03/03/2022 at 19:28 ? ? Approved by: Cem Mueller M.D. on 03/03/2022 at 19:29?? CT scan - abdomen/pelvis: Radiologist Impression: [place] [address] CT Scan Report Signed Patient: Tenisha Mejia MR#: [id number] : 1940 Acct:[id number] Age/Sex: 81 / F Date of Service: 03/03/22 Loc: Accession Number: [id number] ?? Procedure: CT abdomen pelvis w con Ordering Provider: Comfort Guzmán D.O. PROCEDURE:? CT ABDOMEN PELVIS W CON ? INDICATIONS:? weakness, legs, urinary retention ? TECHNIQUE:? After the administration of IV contrast, axial sections were acquired from the lung bases to the pubic symphysis.? Coronal and sagittal reformats were performed.? For radiation dose reduction, the following was used:? automated exposure control, adjustment of mA and/or kV according to patient size. ? COMPARISON:? [facility], CT, ABDOMEN/PELVIS WITH CONTRAST, 04/09/2012, 13:16. ? FINDINGS:? Image quality:? There is metallic streak artifact from patient's bilateral hip prostheses limiting evaluation.? ? Lung bases:? There is mild atelectasis and scarring in the lung bases.? ? Heart:? Heart is normal in size.? There is a large hiatal hernia. ? ? ABDOMEN: Liver:? No mass lesion. Gallbladder:? Within normal limits without calcified gallstones.? ? Biliary ducts:? No biliary ductal dilatation.? ? Pancreas:? Unremarkable.? ? Spleen:? Normal in size.? ? Adrenal Glands:? No adrenal nodules.? ? Kidneys and Ureters:? There is slight fullness of the renal collecting systems without definite hydronephrosis.? The visualized ureters are nondistended, with is the distal ureter is not well visualized due to streak artifact.? No renal stones or urinary stones within the visualized ureters.? There are bilateral simple renal cysts. ? Stomach and Bowel:? Stomach, small bowel loops, and colon are normal in caliber and wall thickness.? No pericecal inflammatory changes to suggest appendicitis.? There is colonic diverticulosis without acute diverticulitis.? Peritoneum:? No abnormal intraperitoneal fluid.? No free air.? ? Ventral Wall: ? There is a fat-containing supraumbilical ventral abdominal hernia.? No herniated bowel loops. Abdominal Nodes:? No retroperitoneal or mesenteric adenopathy by size criteria.? Vessels:? Aorta and inferior vena cava are normal in size.? ? PELVIS: Pelvic Organs:? Unremarkable.? ? Bladder:? There is a Izaguirre catheter within the bladder, with evaluation limited due to extensive streak artifact in the pelvis.? Pelvic Nodes: No enlarged lymph nodes.? Miscellaneous: No inguinal hernias.? There is asymmetric fatty atrophy of the right psoas muscle. ? Bones:? There is an S-shaped scoliosis of the thoracolumbar spine, with a dextroscoliosis of the lumbar spine centered at L2.? Visualized osseous structures demonstrate no suspicious focal lesions. ? IMPRESSION:? ? 1. Limited evaluation in the pelvis due to streak artifact from patient's bilateral hip prostheses. ? 2. Izaguirre catheter demonstrated within the bladder which is not well visualized. ? 3. No definite hydronephrosis or nephrolithiasis within the kidneys. ? 4. Asymmetric fatty atrophy of the right psoas muscle.? ? ? Dictated by: Bk Copeland M.D. on 03/03/2022 at 21:28 ? ? Approved by: Bk Copeland M.D. on 03/03/2022 at 21:35?? ECG Data Attestation: I personally reviewed and interpreted this ECG as follows: Interpretation: Sinus degree with first-degree AV block rate of 69 AR 218 QRS is 76 and QTC of 426. No acute ST changes appreciated, patient is inverted T-wave in lead 3. No other acute changes. 07/13/2018 does not show T-wave change but EKG from 05/06 does. No acute or dynamic changes otherwise appreciated. MDM Narrative Medical decision making narrative: This is an 81-year-old female with history of prior stroke with some baseline weakness who typically uses durable medical equipment to help her get around her 's had increasingly difficult time and she is become increasingly weak with her legs intermittently giving out or having difficulty even pivoting. Patient was diagnosed with shingles about 3 weeks ago she is been on Selmer and gabapentin and has been titrated up to 1800 mg daily. Suspect polypharmacy is the cause of her increasing weakness and urinary retention although she has had prior stroke head CT did not show any acute changes, patient's NIH was 0, CT abdomen pelvis which includes the back did not show any obvious lesions, patient had a 1000 out urine with Izaguirre catheter was placed. She did not have any sensation that she was retaining. She has no midline back pain on palpation or when asked. No pain radiating down her legs. She does complain of significant pain on the left side of her chest. I do not have MRI available to evaluate her brain or back at this time. Discussed with Dr. Cope who accepts for observation. Discharge Plan Departure Patient Disposition: Admitted as Observation Clinical Impression: Neuralgia, post-herpetic, Weakness Admit Date/Time: 03/03/22 22:03 Admit Provider: Easton Cope
--- NOTE | 2022-03-03 18:56 | DI.RAD.S_ITS ---
PROCEDURE: XR CHEST 1V INDICATIONS: weakness TECHNIQUE: One view of the chest was acquired. COMPARISON: [facility], CR, XR CHEST 2V, 11/24/2020, 18:07. [facility], CR, XR CHEST 2V, 10/21/2020, 12:57. FINDINGS: Surgical changes and devices: Right breast clips Lungs and pleura: Lung volumes are low. Prominence of the interstitium could be an artifact of low lung volumes. No dense consolidation. Atelectasis at the left base. Mediastinum: Appearance of mediastinal widening may be secondary to low lung volumes. The aorta is tortuous. Bones and chest wall: No suspicious bony lesions. Overlying soft tissues appear unremarkable. IMPRESSION: Low lung volumes. No dense consolidation. Interstitial prominence probably an artifact of low lung volumes, versus edema or atypical infection. Dictated by: Cem Mueller M.D. on 03/03/2022 at 19:28 Approved by: Cem Mueller M.D. on 03/03/2022 at 19:29
--- NOTE | 2022-03-03 18:56 | DI.CT.S_ITS ---
PROCEDURE: CT HEAD/BRAIN WO CON INDICATIONS: weakness TECHNIQUE: Noncontrast 4.5 mm thick angled axial sections acquired from the foramen magnum to the vertex, with coronal and sagittal reformats. For radiation dose reduction, the following was used: automated exposure control, adjustment of mA and/or kV according to patient size. COMPARISON: [facility], CT, CT HEAD/BRAIN WO CON, 07/13/2018, 10:58. FINDINGS: Image quality: Excellent. CSF spaces: Basal cisterns are patent. No extra-axial fluid collections. Ventricles are normal in size and shape. Brain: No midline shift. No intracranial masses or hemorrhage. Vanegas-white matter interface is normal. Vascular calcifications. Moderate volume loss. Periventricular white matter hypoattenuation likely chronic small vessel disease. Similar encephalomalacia of the bilateral basal ganglia. Skull and face: Calvarium and visualized facial bones are intact, without suspicious lesions. Right craniotomy. Sinuses: Visualized sinuses and mastoids are clear. IMPRESSION: No acute intracranial abnormality. Old infarcts of the basal ganglia and chronic findings as above. Consider MRI if there is high concern for ischemic event. Dictated by: Cem Mueller M.D. on 03/03/2022 at 19:39 Approved by: Cem Mueller M.D. on 03/03/2022 at 19:42
[2022-03-03 19:00] VITALS: PULSE 75; O2SAT 92
[2022-03-03 19:31] LABS: Add Manual Diff / Slide Review NO; Basophils Absolute Auto 100 /uL (0-100); Basophils Percent Auto 0.8 % (0-2); Eosinophils Absolute Auto 200 /uL (0-450); Eosinophils Percent Auto 2.7 % (2-4); Hematocrit 34.7 % (36-46); Hemoglobin 11.5 g/dL (12.0-16.0); Lymphocytes Absolute Auto 1300 /uL (1100-4500); Lymphocytes Percent Auto 16.6 % (25-40); Mean Corpuscular HGB Conc 33.2 % (30-36); Mean Corpuscular Hemoglobin 29.2 PG (26-34); Monocytes Absolute Auto 800 /uL (0-900); Monocytes Percent Auto 10.3 % (3-14); Neutrophils Absolute Auto 5300 /uL (1500-7000); Neutrophils Percent Auto 69.6 % (50-75); Platelet Count 461 X10^3/uL (150-400); Red Blood Cell Count 3.94 X10^6/uL (4.0-5.2); Red Cell Distribution Width 16.7 % (11.6-14.8); White Blood Cell Count 7.6 X10^3/uL (4.5-11.0)
[2022-03-03 19:48] LABS: COVID19 -Nasal RAPID Negative (Negative)
[2022-03-03 20:38] LABS: Alanine Aminotransferase 44 IU/L (<35); Albumin 3.9 g/dL (3.5-5.0); Albumin Globulin Ratio 1.1 (1.0-2.8); Alkaline Phosphatase 82 U/L (38-126); Aspartate Aminotransferase 55 IU/L (14-36); BUN Creatinine Ratio 29.2 (6-22); Bilirubin Total 0.5 mg/dL (0.2-1.3); Blood Urea Nitrogen 26 mg/dL (7-17); Carbon Dioxide 32 mmol/L (22-32); Chloride 99 mmol/L (98-107); Estimated Glomerular Filt Rate > 60 mL/min (>60); Globulin 3.7 g/dL (1.7-4.1); Glucose 91 mg/dL (80-110); HEMOLYSIS < 15 (0-50); Lipase 49 U/L (23-300); Potassium 4.9 mmol/L (3.4-5.1); Sodium 138 mmol/L (137-145); Total Protein 7.6 g/dL (6.3-8.2)
[2022-03-03 20:54] LABS: Creatine Kinase 96 U/L (30-135)
--- NOTE | 2022-03-03 20:56 | DI.CT.S_ITS ---
PROCEDURE: CT ABDOMEN PELVIS W CON INDICATIONS: weakness, legs, urinary retention TECHNIQUE: After the administration of IV contrast, axial sections were acquired from the lung bases to the pubic symphysis. Coronal and sagittal reformats were performed. For radiation dose reduction, the following was used: automated exposure control, adjustment of mA and/or kV according to patient size. COMPARISON: [facility], CT, ABDOMEN/PELVIS WITH CONTRAST, 04/09/2012, 13:16. FINDINGS: Image quality: There is metallic streak artifact from patient's bilateral hip prostheses limiting evaluation. Lung bases: There is mild atelectasis and scarring in the lung bases. Heart: Heart is normal in size. There is a large hiatal hernia. ABDOMEN: Liver: No mass lesion. Gallbladder: Within normal limits without calcified gallstones. Biliary ducts: No biliary ductal dilatation. Pancreas: Unremarkable. Spleen: Normal in size. Adrenal Glands: No adrenal nodules. Kidneys and Ureters: There is slight fullness of the renal collecting systems without definite hydronephrosis. The visualized ureters are nondistended, with is the distal ureter is not well visualized due to streak artifact. No renal stones or urinary stones within the visualized ureters. There are bilateral simple renal cysts. Stomach and Bowel: Stomach, small bowel loops, and colon are normal in caliber and wall thickness. No pericecal inflammatory changes to suggest appendicitis. There is colonic diverticulosis without acute diverticulitis. Peritoneum: No abnormal intraperitoneal fluid. No free air. Ventral Wall: There is a fat-containing supraumbilical ventral abdominal hernia. No herniated bowel loops. Abdominal Nodes: No retroperitoneal or mesenteric adenopathy by size criteria. Vessels: Aorta and inferior vena cava are normal in size. PELVIS: Pelvic Organs: Unremarkable. Bladder: There is a Izaguirre catheter within the bladder, with evaluation limited due to extensive streak artifact in the pelvis. Pelvic Nodes: No enlarged lymph nodes. Miscellaneous: No inguinal hernias. There is asymmetric fatty atrophy of the right psoas muscle. Bones: There is an S-shaped scoliosis of the thoracolumbar spine, with a dextroscoliosis of the lumbar spine centered at L2. Visualized osseous structures demonstrate no suspicious focal lesions. IMPRESSION: 1. Limited evaluation in the pelvis due to streak artifact from patient's bilateral hip prostheses. 2. Izagurire catheter demonstrated within the bladder which is not well visualized. 3. No definite hydronephrosis or nephrolithiasis within the kidneys. 4. Asymmetric fatty atrophy of the right psoas muscle. Dictated by: Bk Copeland M.D. on 03/03/2022 at 21:28 Approved by: Bk Copeland M.D. on 03/03/2022 at 21:35
[2022-03-03 21:07] LABS: Troponin I < 0.012 ng/mL (0.01-0.034)
[2022-03-03 21:48] VITALS: BP 143/70; PULSE 65; O2SAT 93
[2022-03-03 22:15] VITALS: BMI 27.2
--- NOTE | 2022-03-03 22:57 | P.HP_ITS ---
History of Present Illness History of Present Illness Date Patient Seen: 03/03/22 Time Patient Seen: 22:00 Chief complaint: weakness Narrative: Ms. Mejia is an 81W with PMH CVA who presents with weakness. She states she was diagnosed with shingles in January. The rash was in her lower chest and wrapped around to put of her back. She had quite significant paina nd was prescribed opiates and gabapentin. A few days after this her legs began to get weak. At baseline she has some difficulty walking, which began years ago since her stroke, but can ambulate with a walker and get up stairs. However, over the last two weeks per her and her they state she can not walk at all. She has no decreased sensation. She has not had any incontinence. She has no back pain. She continues to have pain at her rash site. In the ED workup was done, vitals noted to be normal. Labs notable for hemoglobin of 11.5, normal white count, creatinine 0.89. Troponin negative. C OVID negative. CT head negative. Chest xray with no acute process. CT abdomen/pelvis with no acute process. She was noted to have urinary retention and had a gardenr placed. She was unable to ambulate and needed two person assistance to the commode. Family history: asked and denies any medical problems in family Patient History Medical History CVA (cerebral vascular accident) Stroke Family & Social History Social History: household members spouse Safety & Behavioral: Feels Safe in Current Yes Environment Tobacco & Substance use: Smoking Status Never smoker alcohol intake current alcohol intake frequency a few times a month Substance Use Type does not use Meds Home Medications and Allergies Home Medications Medication Instructions Recorded Confirmed Type famotidine 20 mg tablet 20 mg PO BID 01/10/18 02/08/22 History levothyroxine 100 mcg tablet 1 tab PO MOWEFR 01/10/18 02/08/22 History levothyroxine 88 mcg tablet 1 tab PO SUTUTHSA 01/10/18 02/08/22 History losartan 100 mg tablet 100 mg PO DAILY 01/10/18 02/08/22 History venlafaxine 37.5 mg 1 cap PO QPM 01/10/18 02/08/22 History capsule,extended release 24 hr cholecalciferol (vitamin D3) 10 400 unit PO DAILY 07/13/18 02/08/22 History mcg (400 unit) capsule (Vitamin D3) cyanocobalamin (vitamin B-12) 1 dose IM Q2W 07/13/18 02/08/22 History 1,000 mcg/mL injection solution atorvastatin 20 mg tablet (Lipitor) 40 mg PO BEDTIME #60 tabs 07/15/18 02/08/22 Rx ondansetron HCl 4 mg tablet 4 mg PO BID-TID PRN nausea and 07/15/18 02/08/22 Rx (Zofran) vomiting #20 tabs benzonatate 100 mg capsule 100 mg PO BID PRN cough #30 caps 12/14/21 02/08/22 Rx Allergies Allergy/AdvReac Type Severity Reaction Status Date / Time Penicillins [PENICILLINS] Allergy Severe LESIONS IN Verified 03/03/22 18:52 HER MOUTH ciprofloxacin [CIPROFLOXACIN] Allergy Intermediate tongue Verified 03/03/22 18:52 inflammation wheat [WHEAT] Allergy Unknown ABD PAIN Verified 03/03/22 18:52 Review of Systems Review of Systems Narrative: 14 systems reviewed and negative aside from what is noted in HPI Exam Vital Signs (past 8 hours): - 03/03/22 18:48 03/03/22 18:47 03/03/22 18:48 Temperature 98.8 F Pulse Rate 79 83 Respiratory Rate 18 Blood Pressure 138/71 138/71 Pulse Oximetry 94 93 Oxygen Delivery Method Room Air 03/03/22 18:48 03/03/22 19:00 03/03/22 21:48 Temperature Pulse Rate 80 75 Respiratory Rate Blood Pressure 143/70 H Pulse Oximetry 92 92 Oxygen Delivery Method 03/03/22 21:48 Temperature Pulse Rate 65 Respiratory Rate Blood Pressure Pulse Oximetry 93 Oxygen Delivery Method Oxygen Delivery Method Room Air Narrative Exam Narrative: GEN: no acute distress HEENT: moist mucous membranes, PERRL NECK: trachea midline, no JVD PULM: clear bilaterally, no wheezes, rhonchi, rales CV: regular rate and rhythm, no murmurs ABD: soft, nontender, nondistended, no organomegaly EXT: warm and well perfused SKIN: healing rash on lower chest, upper abdomen, no vesicles NEURO: no sensory defiicits. 4/5 strength in bilateral legs, reflexes bilaterally intact Objective Labs Result Diagrams: 03/03/22 18:53 03/03/22 20:00 Labs: Laboratory Results - last 24 hr 03/03/22 03/03/22 03/03/22 18:53 18:53 20:00 WBC 7.6 RBC 3.94 L Hgb 11.5 L Hct 34.7 L MCV 88.0 MCH 29.2 MCHC 33.2 RDW 16.7 H Plt Count 461 H Neut % (Auto) 69.6 Lymph % (Auto) 16.6 L [place] % (Auto) 10.3 Eos % (Auto) 2.7 Baso % (Auto) 0.8 Neut # (Auto) 5300 Lymph # (Auto) 1300 [place] # (Auto) 800 Eos # (Auto) 200 Baso # (Auto) 100 Sodium 138 Potassium 4.9 Chloride 99 Carbon Dioxide 32 BUN 26 H Creatinine 0.89 Estimated GFR > 60 BUN/Creatinine Ratio 29.2 H Glucose 91 Calcium 9.0 Total Bilirubin 0.5 AST 55 H ALT 44 H Alkaline Phosphatase 82 Total Creatine Kinase 96 CK-MB (CK-2) TNP CK-MB (CK-2) Rel Index TNP Troponin I < 0.012 Total Protein 7.6 Albumin 3.9 Globulin 3.7 Albumin/Globulin Ratio 1.1 Lipase 49 SARS-CoV-2 (PCR) Negative Assessment & Plan Assessment & Plan narrative: Ms. Mejia is an 81W with PMH CVA, recent diagnosis of shingles who presents with lower extremity weakness. 1. Lower extremity weakness -etiology is possible from polypharmacy from pain meds, vs zoster paresis ---other possible etiology to consider would be zoster caused transverse myelitis, or post infectious guillain barre, but think both are less likely -for now will change pain medications and see if symptoms improve ---if not improved consider steroids for zoster paresis, vs MRI spine vs LP -consider outpatient EMG if continued weakness -PT consult -patient does not want SNF placement 2. Acute urinary retention -etiology possibly from pain medications ---suspect less likely zoster caused as dermatome affected is above sacrum, also less likely spinal process -consider imaging as above -UA negative for infection 3. History of stroke -continue home meds 4. Hypothyroid -continue synthroid 5. Hypertension -continue losartan CODE: Full Proxy: Gorge Mejia, I have utilized all available resources to reconicle the patient's home medications. Time Spent With Patient Critical Care time: I spent a total of [] minutes of critical care time on this patient's care today; this time is exclusive of procedural time. Quality MIPS - Admit I confirm the patient?s Advance Care Plan is present, Code status is documented, Surrogate decision maker is in patient?s record [If Yes, STOP here]: Yes
[2022-03-03] MEDS: ACETAMINOPHEN 325 MG TABLET 650 MG PO (23:05)
[2022-03-04] VITALS: BP 125/69; PULSE 65; RESP 16; TEMP 36.4; O2SAT 92
[2022-03-04] MEDS: TRAMADOL 50 MG TABLET PO ×4 (01:57→20:10)
[2022-03-04 06:00] VITALS: BP 148/65; PULSE 59; RESP 16; TEMP 36.2; O2SAT 94
[2022-03-04 06:11] LABS: Add Manual Diff / Slide Review NO; Basophils Absolute Auto 100 /uL (0-100); Eosinophils Absolute Auto 300 /uL (0-450); Eosinophils Percent Auto 5.2 % (2-4); Hematocrit 31.8 % (36-46); Hemoglobin 10.9 g/dL (12.0-16.0); Lymphocytes Absolute Auto 1600 /uL (1100-4500); Lymphocytes Percent Auto 27.7 % (25-40); Mean Corpuscular HGB Conc 34.4 % (30-36); Mean Corpuscular Hemoglobin 29.9 PG (26-34); Mean Corpuscular Volume 86.9 fL (80-100); Monocytes Absolute Auto 600 /uL (0-900); Monocytes Percent Auto 10.2 % (3-14); Neutrophils Absolute Auto 3200 /uL (1500-7000); Neutrophils Percent Auto 55.9 % (50-75); Platelet Count 453 X10^3/uL (150-400); Red Blood Cell Count 3.65 X10^6/uL (4.0-5.2); Red Cell Distribution Width 16.4 % (11.6-14.8); White Blood Cell Count 5.7 X10^3/uL (4.5-11.0)
[2022-03-04 06:20] LABS: BUN Creatinine Ratio 24.4 (6-22); Blood Urea Nitrogen 21 mg/dL (7-17); Calcium 8.5 mg/dL (8.4-10.2); Carbon Dioxide 31 mmol/L (22-32); Chloride 103 mmol/L (98-107); Estimated Glomerular Filt Rate > 60 mL/min (>60); Glucose 92 mg/dL (80-110); HEMOLYSIS < 15 (0-50); Potassium 3.6 mmol/L (3.4-5.1); Sodium 137 mmol/L (137-145)
--- NOTE | 2022-03-04 10:24 | CM.DANOTE ---
DCP Assessment: Payor: Medicare PCP: MD Matteo Pt is a 81 y.o. F who presented to the ED with increasing weakness and having difficulty walking. Pt has a history of CVA and shingles diagnosed at the end of January. Pt was able to ambulate with her walker until about a week ago and her was helping her to the bathroom. Pt was admitted to the floor under observation for further management and evaluation of her symptoms. DCP met with pt this morning to discuss discharge needs. Pt laying in bed reading her book. DCP introduced herself and role. Pt states that she lives in [place] with her , Gorge, in a two story house. Pt states that she has a son here in town. Pt states that she uses a walker at baseline. Pt states that she does not drive and relies on her for transportation. Pt states she used to be able to do house chores but lately has been unable too. Pt states that she has had Home Health Services in the past (about a year ago) but she could not remember the agency. Pt did not have any further questions or concerns. White board was updated and instructed to call with any other questions. DCP to continue to follow as discharge needs unclear at this time. P: Once pt is medically stable for discharge, pt to discharge home via spouse POV. R/O home health services or any other needs as determined by the care team. Sejal Ortiz RN/CAROL Discharge Planning/Care Management CM Discharge Assessment Start: 03/04/22 08:03 Freq: Status: Active Protocol: Document 03/04/22 09:16 LYNNETTE (Rec: 03/04/22 09:18 LYNNETTE [id number]) Discharge Planning Assessment Assigned Residential Manager Sejal Ortiz RN/CAROL Advance Directives? Yes Advance Directives on File No History Provided By Patient,Medical Record Has Patient been admitted in last 30 No days? Prior Living Arrangements House Household Members spouse Type of transporation used prior to Relies on Others admit Comment Independent with ADL's Yes: until about a month ago when symptoms appeared. Is patient alert and oriented? Yes Caregiver for Another No Discharge Plan Home Referrals Initiated None needed Additional Comment At this time. R/o Home Health Whiteboard Updated in Patient Room with Yes name and ext. # of Residential Manager Comment Instructed to call Review Status In Process Please Provide Date Initial DC 03/04/22 Assessment Was Performed Next Review Type Continued Stay Review
[2022-03-04 11:28] VITALS: BP 128/75; PULSE 72; RESP 16; TEMP 36.3; O2SAT 94
--- NOTE | 2022-03-04 13:15 | PT.IIE ---
Medical History (Last Reviewed 03/03/22 @ 22:57 by Easton Cope MD) CVA (cerebral vascular accident) Stroke Physical Therapy Inpatient Evaluation/Re-Eval M1 PT/OT-IP Prior Functional Status Start: 03/04/22 14:29 Freq: NEEDED Status: Active Protocol: Document 03/04/22 13:15 AB (Rec: 03/04/22 14:46 AB [email or web address]) Medical Review Prior Functional Status Medical History Reviewed Yes Communication able to make needs known but with cognitive issues Mobility and Gait spouse in room to provide PLOF and home set up: stated that pt is modified independent with all mobilities and ambulation using a 4WW during the day and a FWW at night but has decreased mobility in the last 2-3 weeks due to shingles and unable to ambulate. spouse then has been assisting pt with transfers with spouse assisting pt from the front and pivoting pt for transfers. uses transport chair for mobility. Social History Household Members spouse Living Arrangements House Number of Floors (Floors) Two Floors Number of Stairs To Enter/Railing? pt stays on main level of the house 1 step to enter the house Home Environment Standard Height Toilet,Bidet Home Equipment Front Wheel Walker,Four Wheel Walker,Hand Held Shower Additional Social History Comment pt has a walkin tub shower with grab bars, HHS and built in seat has transport chair M2 PT-IP Current Condition Start: 03/04/22 14:29 Freq: NEEDED Status: Active Protocol: Document 03/04/22 13:15 AB (Rec: 03/04/22 14:46 AB [email or web address]) Physical Therapy Current Condition Current Condition Evaluation Date 03/04/22 Treatment Diagnosis weakness; neuralgia; difficulty in walking Onset Date 03/03/22 M3 PT-IP Subjective Start: 03/04/22 14:29 Freq: NEEDED Status: Active Protocol: Document 03/04/22 13:15 AB (Rec: 03/04/22 14:46 AB [email or web address]) Subjective Physical Therapy Visit Type Type Initial Evaluation Visit Start Time 13:15 Visit Stop Time 14:01 Total Visit Minutes 46 Number of NEWS WIRE PHOTO OPERATOR Visits 0 Physical Therapy Visit Comments Patient Comments stated that she has pain and cannot do PT; pt requesting to go back to bed and agreed to do PT after education provided Therapy Pain Assessment Pain When Pain Assessed At Rest Pain Present Pain Present Pain Reported Location Left Abdomen Intensity 9 Scale Used Numeric (0 - 10) Pain Management Techniques Modification of Treatment,Re- positioning,Timing of Activity with Medications M4 PT-IP Mobility and Gait Start: 03/04/22 14:29 Freq: NEEDED Status: Active Protocol: Document 03/04/22 13:15 AB (Rec: 03/04/22 14:46 AB [email or web address]) PT-Bed Mobility Assessment Sit to Supine Sit to Supine Maximum Assistance,2 Person Assistance,Head of Bed Elevated PT-Transfer Assessment Sit to and From Stand Sit to and from Stand Maximum Assistance,1 Person Assistance,2 Person Assistance ,Use of Upper Extremities Equipment Transfer Assistive Device Gait Belt,Front Wheeled Walker Orthotic/Prosthetic Devices or Brace: No Transfers Transfer Destination Bed Transfer Technique steps to transfer using FWW Transfer Ability Level of Assist Maximum Assistance,1 Person Assistance,2 Person Assistance ,Use of Upper Extremities Comments Mobility Comments pt sitting on chair. spouse in room. pt completed sit to stand x 2 attempts max A x 1-2 and max cues. able to take a few steps to the bed using fWW max A x 1-2 and max cues. presents with increase forward trunk lean and lateral trunk lean to the R. required max A for weight shifting to be able to move LE. completed sit to supine max A x 1-2 and max cues. positioned pt in bed . call light and table placed within reach. Gait Assessment Gait Gait Assistance Required: Maximum Assistance,1 Person Assist,2 Person Assist Distance (Feet) 2 Able to Maintain Weight Bearing Status Yes During Gait Assistive Devices Assistive Device Gait Belt,Front Wheeled Walker Orthotic/Prosthetic Devices or Brace: No Gait Deviations General Gait Pattern Antalgic,Decreased Stride Length,Decreased Feet Clearance,Flexed Trunk,Lateral Trunk Lean,Narrow Based Gait, Step-to Gait Factors Limiting Gait Function Factors Limiting Gait Function Decreased Activity Tolerance, Decreased Strength,Difficulty Following Directions,Limited Range of Motion,Pain,Poor Balance,Poor Safety Awareness PT-Balance Assessment Sitting Balance and Reactions Static Sitting Balance Ability Fair Dynamic Sitting Balance Ability Poor Standing Balance and Reactions Static Standing Balance Ability Poor Dynamic Standing Balance Ability Poor Device Used FWW M5 PT-IP Objective Assessments Start: 03/04/22 14:29 Freq: NEEDED Status: Active Protocol: Document 03/04/22 13:15 AB (Rec: 03/04/22 14:46 AB [email or web address]) Orientation Orientation/Cognition Level of Alertness Alert Orientation Name Safety Awareness Decreased Safety Awareness Memory Description Short Term Impaired,Cloth Tester Impaired Gross Range of Motion Lower Extremity ROM Assessment Within Functional Limits Strength Lower Extremity Strength Hip 4-/5 Knee 4-/5 Coordination Assessment Gross Coordination Gross Coordination WNL Sensation Assessment Sensation Gross Sensation WNL Muscle Tone Muscle Tone WNL Yes M6 PT-IP Treatment Start: 03/04/22 14:29 Freq: NEEDED Status: Active Protocol: Document 03/04/22 13:15 AB (Rec: 03/04/22 14:46 AB [email or web address]) Physical Therapy Treatment Education Education Provided Safety M7 PT-IP Assessment and Plan Start: 03/04/22 14:29 Freq: NEEDED Status: Active Protocol: Document 03/04/22 13:15 AB (Rec: 03/04/22 14:46 AB [email or web address]) PT Summary Assessment and Plan Potential Rehabilitation Potential Fair Status of Condition at Evaluation Evolving Summary Impairments Pain,ROM,Strength,Balance, Coordination,Sensation,Tone, Cognition,Bed Mobility, Transfers,Gait,Activity Tolerance Assessment Summary pt requiring max A x 1-2 and max cues and will need SNF rehab at this time. d/c plan depending on progress and will continue to assess. Goals Bed Mobility Goal Minimal Assistance Transfer Goal Minimal Assistance,Front Wheeled Walker Gait Goal Minimal Assistance,Front Wheel Walker Gait Distance 50 Other Goals improve bed mobility, transfers and ambulation using FWW 100 ft SBA up/down 1 step using FWW min A Days to Meet Goals 10 Frequency of Treatment Frequency Of Treatment Once a Day Treatment Plan Physical Therapy Treatment Plan Bed Mobility Training,Transfer Training,Gait Training, Therapeutic Exercise,Balance Retraining,Discharge Planning, Hot or Cold Pack,Neuromuscular Re-ed,Coordination Retraining ,Manual Therapy Precautions Other Precautions falls Recommendations To Nursing Amount of Assist Needed 2 Person Assist Discharge Recommendations PT Discharge Recommendations SNF Rehab Transportation Needs at Discharge Wheelchair/Cabulance
[2022-03-04] MEDS: KETOROLAC 30 MG/ML VIAL IV (15:19)
--- NOTE | 2022-03-04 15:21 | P.PN_ITS ---
Subjective Subjective Date Patient Seen: 03/04/22 Interval history: Not much improvement in her weakness today. She continues to deny numbness, tingling, chest pain, shortness of breath. Her pain is much worse today after stopping medications. Exam Vital Signs (past 8 hours): - 03/04/22 11:28 Temperature 97.3 F L Pulse Rate 72 Respiratory Rate 16 Blood Pressure 128/75 Pulse Oximetry 94 Oxygen Flow Rate 0 Oxygen Delivery Method Room Air Oxygen Flow Rate 0 Narrative Exam Narrative: GEN: no acute distress but appears uncomfortable with minimal movement, points to her rash as the site of pain. HEENT: moist mucous membranes, PERRL NECK: trachea midline, no JVD PULM: clear bilaterally, no wheezes, rhonchi, rales CV: regular rate and rhythm, no murmurs ABD: soft, nontender, nondistended, no organomegaly EXT: warm and well perfused SKIN: healing rash on lower chest, upper abdomen, no vesicles NEURO: no sensory deficits. 5/5 strength in bilateral legs, reflexes bilaterally intact. Objective Labs Result Diagrams: 03/04/22 06:00 03/04/22 06:00 Labs: Laboratory Results - last 24 hr 03/03/22 03/03/22 03/03/22 18:53 18:53 20:00 WBC 7.6 RBC 3.94 L Hgb 11.5 L Hct 34.7 L MCV 88.0 MCH 29.2 MCHC 33.2 RDW 16.7 H Plt Count 461 H Neut % (Auto) 69.6 Lymph % (Auto) 16.6 L [place] % (Auto) 10.3 Eos % (Auto) 2.7 Baso % (Auto) 0.8 Neut # (Auto) 5300 Lymph # (Auto) 1300 [place] # (Auto) 800 Eos # (Auto) 200 Baso # (Auto) 100 Sodium 138 Potassium 4.9 Chloride 99 Carbon Dioxide 32 BUN 26 H Creatinine 0.89 Estimated GFR > 60 BUN/Creatinine Ratio 29.2 H Glucose 91 Calcium 9.0 Total Bilirubin 0.5 AST 55 H ALT 44 H Alkaline Phosphatase 82 Total Creatine Kinase 96 CK-MB (CK-2) TNP CK-MB (CK-2) Rel Index TNP Troponin I < 0.012 Total Protein 7.6 Albumin 3.9 Globulin 3.7 Albumin/Globulin Ratio 1.1 Lipase 49 SARS-CoV-2 (PCR) Negative 03/04/22 03/04/22 06:00 06:00 WBC 5.7 RBC 3.65 L Hgb 10.9 L Hct 31.8 L MCV 86.9 MCH 29.9 MCHC 34.4 RDW 16.4 H Plt Count 453 H Neut % (Auto) 55.9 Lymph % (Auto) 27.7 [place] % (Auto) 10.2 Eos % (Auto) 5.2 H Baso % (Auto) 1.0 Neut # (Auto) 3200 Lymph # (Auto) 1600 [place] # (Auto) 600 Eos # (Auto) 300 Baso # (Auto) 100 Sodium 137 Potassium 3.6 D Chloride 103 Carbon Dioxide 31 BUN 21 H Creatinine 0.86 Estimated GFR > 60 BUN/Creatinine Ratio 24.4 H Glucose 92 Calcium 8.5 Total Bilirubin AST ALT Alkaline Phosphatase Total Creatine Kinase CK-MB (CK-2) CK-MB (CK-2) Rel Index Troponin I Total Protein Albumin Globulin Albumin/Globulin Ratio Lipase SARS-CoV-2 (PCR) [facility] Medical History CVA (cerebral vascular accident) Stroke Social History household members: spouse Smoking Status: Never smoker alcohol intake: current Assessment & Plan Assessment & Plan narrative: Ms. Mejia is an 81W with H CVA, recent diagnosis of shingles who presents with lower extremity weakness. 1. Lower extremity weakness -etiology is possible from polypharmacy from pain meds, vs zoster paresis. Possibly deconditioning due to pain. ---other possible etiology to consider would be zoster caused transverse my elitis, or post infectious guillain barre, but think both are less likely -consider brain MRI and L-spine MRI as well depending on progress, though exam today not consistent with spinal or brain pathology. -consider outpatient EMG if continued weakness -PT consult -patient does not want SNF placement 2. Acute urinary retention -etiology possibly from pain medications ---suspect less likely zoster caused as dermatome affected is above sacrum, also less likely spinal process -consider imaging as above -UA negative for infection 3. History of stroke -continue home meds 4. Hypothyroid -continue synthroid 5. Hypertension -continue losartan CODE: Full Proxy: Gorge Mejia, I have utilized all available resources to reconicle the patient's home medications. Time Spent With Patient Critical Care time: I spent a total of [] minutes of critical care time on this patient's care today; this time is exclusive of procedural time.
--- NOTE | 2022-03-04 15:47 | PC.NURSE ---
Pt stated 10 pain, RN gave toradol and tramadol. Pt requests bedside commode urgently. When transferring pt with 3 people, pt very unstable on legs and leaning to right side during transfer. During transfer, pt also leans back and pulls staff to get to feet. Staff reminds pt that she cannot transfer safely this way and next time a bedpan may be used. Pt states she is unsure why she has a gardner catheter and states she does not want to use a bedpan. Staff reminded pt she has a gardner catheter because she is having a hard time getting up to the commode.
[2022-03-04 16:50] VITALS: BP 148/81; PULSE 67; RESP 16; TEMP 36.3; O2SAT 92
[2022-03-04] MEDS: GABAPENTIN 300 MG CAPSULE PO (17:17)
[2022-03-04] MEDS: LEVOTHYROXINE 100 MCG TABLET PO (17:17)
[2022-03-04] MEDS: VENLAFAXINE ER 37.5 MG CAP PO (17:17)
[2022-03-04 19:00] VITALS: O2SAT 98
[2022-03-04] MEDS: ATORVASTATIN 20 MG TABLET 40 MG PO (20:10)
[2022-03-04 20:34] VITALS: BP 149/82; PULSE 75; RESP 18; TEMP 37; O2SAT 92
[2022-03-05] VITALS: BP 122/77; PULSE 77; RESP 14; TEMP 36.6; O2SAT 97
[2022-03-05 05:00] VITALS: BP 158/89; PULSE 88; RESP 16; TEMP 36.7; O2SAT 98
[2022-03-05] MEDS: ACETAMINOPHEN 325 MG TABLET 650 MG PO (05:19)
[2022-03-05] MEDS: TRAMADOL 50 MG TABLET PO ×2 (05:36→20:54)
--- NOTE | 2022-03-05 08:50 | PT.IPTN ---
Physical Therapy Treatment Note M2 PT-IP Current Condition Start: 03/04/22 14:29 Freq: NEEDED Status: Active Protocol: Document 03/04/22 13:15 AB (Rec: 03/04/22 14:46 AB [id number]) Physical Therapy Current Condition Current Condition Evaluation Date 03/04/22 Treatment Diagnosis weakness; neuralgia; difficulty in walking Onset Date 03/03/22 M3 PT-IP Subjective Start: 03/04/22 14:29 Freq: NEEDED Status: Active Protocol: Document 03/05/22 08:50 AB (Rec: 03/05/22 11:30 AB [id number]) Subjective Physical Therapy Visit Type Type Treatment Note Visit Start Time 08:50 Visit Stop Time 09:15 Total Visit Minutes 25 Number of NEEDLE MOLDER Visits 0 Physical Therapy Visit Comments Patient Comments pt is agreeable to do PT M4 PT-IP Mobility and Gait Start: 03/04/22 14:29 Freq: NEEDED Status: Active Protocol: Document 03/05/22 08:50 AB (Rec: 03/05/22 11:30 AB [email or web address]) PT-Bed Mobility Assessment Supine to Sit Supine to Sit Maximum Assistance PT-Transfer Assessment Sit to and From Stand Sit to and from Stand Maximum Assistance,1 Person Assistance,Use of Upper Extremities Equipment Transfer Assistive Device Gait Belt,Front Wheeled Walker Orthotic/Prosthetic Devices or Brace: No Transfers Transfer Destination Chair Transfer Technique ambulated Transfer Ability Level of Assist Maximum Assistance,1 Person Assistance,Use of Upper Extremities Comments Mobility Comments completed supine to sit max A and max cues. completed sit to stand max A and ambulated in room ~ 40 ft using FWW max A and max cues. requires assist with weight shifting to move LE. pt agreed to sit on the chair. positioned on the chair. call light and table placed within reach. Gait Assessment Gait Gait Assistance Required: Maximum Assistance,1 Person Assist Distance (Feet) 40 Able to Maintain Weight Bearing Status Yes During Gait Assistive Devices Assistive Device Gait Belt,Front Wheeled Walker Orthotic/Prosthetic Devices or Brace: No Gait Deviations General Gait Pattern Antalgic,Decreased Stride Length,Decreased Feet Clearance,Flexed Trunk,Step-to Gait Factors Limiting Gait Function Factors Limiting Gait Function Decreased Activity Tolerance, Decreased Strength,Difficulty Following Directions,Limited Range of Motion,Pain,Poor Balance,Poor Safety Awareness M5 PT-IP Objective Assessments Start: 03/04/22 14:29 Freq: NEEDED Status: Active Protocol: Document 03/04/22 13:15 AB (Rec: 03/04/22 14:46 AB [id number]) Orientation Orientation/Cognition Level of Alertness Alert Orientation Name Safety Awareness Decreased Safety Awareness Memory Description Short Term Impaired,[facility] Impaired Gross Range of Motion Lower Extremity ROM Assessment Within Functional Limits Strength Lower Extremity Strength Hip 4-/5 Knee 4-/5 Coordination Assessment Gross Coordination Gross Coordination WNL Sensation Assessment Sensation Gross Sensation WNL Muscle Tone Muscle Tone WNL Yes M6 PT-IP Treatment Start: 03/04/22 14:29 Freq: NEEDED Status: Active Protocol: Document 03/05/22 08:50 AB (Rec: 03/05/22 11:30 AB [id number]) Physical Therapy Treatment Education Education Provided Precautions,Safety M7 PT-IP Assessment and Plan Start: 03/04/22 14:29 Freq: NEEDED Status: Active Protocol: Document 03/05/22 08:50 AB (Rec: 03/05/22 11:30 AB [email or web address]) PT Summary Assessment and Plan Potential Rehabilitation Potential Fair Summary Impairments Pain,ROM,Strength,Balance, Coordination,Sensation,Tone, Cognition,Bed Mobility, Transfers,Gait,Activity Tolerance Progress Towards Goals Slow Progress due to Pain,Slow Progress due to Medical Issues,Slow Progress due to Activity Tolerance Assessment Summary pt improving slowly and able to ambulate today using FWW but continues to require max A with all mobility. pt requires max cues with all tasks and has cognitive issues affecting following directions and safety awareness. pt will benefit from SNF rehab. Pt stated that she does not want to go to SNF. When appropriate, caregiver training will be conducted. will continue to assess progress. Goals Bed Mobility Goal Minimal Assistance Transfer Goal Minimal Assistance,Front Wheeled Walker Gait Goal Minimal Assistance,Front Wheel Walker Gait Distance 50 Other Goals improve bed mobility, transfers and ambulation using FWW 100 ft SBA up/down 1 step using FWW min A Days to Meet Goals 10 Frequency of Treatment Frequency Of Treatment Once a Day Treatment Plan Physical Therapy Treatment Plan Bed Mobility Training,Transfer Training,Gait Training, Therapeutic Exercise,Balance Retraining,Discharge Planning, Hot or Cold Pack,Neuromuscular Re-ed,Coordination Retraining ,Manual Therapy Precautions Other Precautions falls Recommendations To Nursing Amount of Assist Needed 2 Person Assist Discharge Recommendations PT Discharge Recommendations SNF Rehab Transportation Needs at Discharge Wheelchair/Cabulance
[2022-03-05 09:25] LABS: Add Manual Diff / Slide Review NO; Basophils Absolute Auto 100 /uL (0-100); Basophils Percent Auto 0.9 % (0-2); Eosinophils Absolute Auto 300 /uL (0-450); Eosinophils Percent Auto 4.6 % (2-4); Hematocrit 36.4 % (36-46); Hemoglobin 12.4 g/dL (12.0-16.0); Lymphocytes Absolute Auto 1400 /uL (1100-4500); Lymphocytes Percent Auto 21.7 % (25-40); Mean Corpuscular Hemoglobin 29.7 PG (26-34); Mean Corpuscular Volume 87.4 fL (80-100); Monocytes Absolute Auto 600 /uL (0-900); Monocytes Percent Auto 9.4 % (3-14); Neutrophils Absolute Auto 4100 /uL (1500-7000); Neutrophils Percent Auto 63.4 % (50-75); Platelet Count 490 X10^3/uL (150-400); Red Blood Cell Count 4.16 X10^6/uL (4.0-5.2); Red Cell Distribution Width 16.6 % (11.6-14.8); White Blood Cell Count 6.4 X10^3/uL (4.5-11.0)
[2022-03-05 09:35] LABS: BUN Creatinine Ratio 28.4 (6-22); Blood Urea Nitrogen 23 mg/dL (7-17); Calcium 8.7 mg/dL (8.4-10.2); Carbon Dioxide 30 mmol/L (22-32); Chloride 102 mmol/L (98-107); Estimated Glomerular Filt Rate > 60 mL/min (>60); Glucose 116 mg/dL (80-110); HEMOLYSIS < 15 (0-50); Potassium 4.1 mmol/L (3.4-5.1); Sodium 137 mmol/L (137-145)
[2022-03-05] MEDS: ENOXAPARIN 40 MG/0.4 ML SYRINGE SUBCUT (09:44)
[2022-03-05] MEDS: GABAPENTIN 300 MG CAPSULE PO (09:44)
[2022-03-05] MEDS: LEVOTHYROXINE 88 MCG TABLET PO (10:45)
--- NOTE | 2022-03-05 11:17 | CM.DPC ---
Addendum entered by Gladis Patel R.N. 03/05/22 15:15: Called Genna at [facility] and let her know about referral, and that patient should discharge tomorrow. Let her know that patient will need RN, P.T, and O.T. Faxed over face sheet, face to face, orders, H&P, today's progress note, and latest P.T. note. Let her also know that patient is Medicare. Genna indicated they have openings as soon as the . Will call and update [place] tomorrow upon discharge, and will then fax DC Summary. Addendum entered by Gladis Patel R.N. 03/05/22 14:33: Met with patient and spouse, Gorge. Discussed home health, and they stated, they have used [facility] before, and would like this set up. Spouse is prepared to take her home. P.T. indicated, she improved today with mobility. Updated Dr. Wilburn, who would like to keep her another day. Per family, will initiate [facility] referral. Patient does not want bath aide, but will order nursing for pain assess, P.T, and O.T. Original Note: DCP Cont: Spoke to patient briefly about discharge planning. Mentioned prison for rehab, and let her know that her insurance does not cover prison due to her being observation. Patient indicated, she does not want to go to rehab. Asked her if she had anyone besides spouse that can assist her, and she indicated, she does have a son that lives locally. Asked her if this DC Clip Loading Machine Adjuster can contact her spouse, Gorge, and she gave permission. Spoke to patient's spouse, Gorge. Mentioned skilled rehab. Let him know that insurance does not cover, would have to pay privately. He asked about the cost of private pay, and let him know that it would be at least $400.00 a day, and down payment would be about $10,000.00. He stated, if they had to, could do this, but really want her home. He feels that he can manage her at home. He is open to home health as well. He did state that [facility], but they did not have any. He was wanting to know if he could borrow hospital wheel-chair to get her home and bring it back'. Let him know most likely would not be able to borrow chair, but could consider ambulance transport, but would be a fee. He indicated, he can figure it out, it's just that they have a gravel driveway that's long, and hard to push wheelchair on gravel. He is prepared to take patient home tomorrow, as per hospitalist, he wants to try some different pain meds for her shingles. Spouse has no preferences upon home health agencies. P: DCP to continue to follow. Spouse will be coming by after lunch to see patient, would also like to see how she does with P.T. Gladis Patel RN/Racing Secretary And Handicapper
--- NOTE | 2022-03-05 11:45 | PC.NURSE ---
Pt transferred to chair this AM, has been very cooperative and currently reading book. RN has advised pt to stay in chair until after lunch.
[2022-03-05 11:53] VITALS: BP 139/76; PULSE 61; RESP 12; TEMP 36.2; O2SAT 92
--- NOTE | 2022-03-05 14:46 | PM.PN.1 ---
Subjective Subjective Date Patient Seen: 03/05/22 Interval history: Slight improvement today in her weakness, she feels a bit stronger and her pain is much better today. No fever, chills, nausea, vomiting. Exam Vital Signs (past 8 hours): - 03/05/22 07:00 03/05/22 11:53 Temperature 97.1 F L Pulse Rate 61 Respiratory Rate 12 Blood Pressure 139/76 Pulse Oximetry 92 Oxygen Delivery Method Room Air Oxygen Flow Rate 0 Oxygen Delivery Method Room Air Oxygen Flow Rate 0 Narrative Exam Narrative: GEN: no acute distress but appears uncomfortable with minimal movement, points to her rash as the site of pain. HEENT: moist mucous membranes, PERRL NECK: trachea midline, no JVD PULM: clear bilaterally, no wheezes, rhonchi, rales CV: regular rate and rhythm, no murmurs ABD: soft, nontender, nondistended, no organomegaly EXT: warm and well perfused SKIN: healing rash on lower chest, upper abdomen, no vesicles NEURO: no sensory deficits. 5/5 strength in bilateral legs, reflexes bilaterally intact. Objective Labs Result Diagrams: 03/05/22 09:19 03/05/22 09:19 Labs: Laboratory Results - last 24 hr 03/05/22 03/05/22 09:19 09:19 WBC 6.4 RBC 4.16 Hgb 12.4 Hct 36.4 MCV 87.4 MCH 29.7 MCHC 34.0 RDW 16.6 H Plt Count 490 H Neut % (Auto) 63.4 Lymph % (Auto) 21.7 L Grainger % (Auto) 9.4 Eos % (Auto) 4.6 H Baso % (Auto) 0.9 Neut # (Auto) 4100 Lymph # (Auto) 1400 Grainger # (Auto) 600 Eos # (Auto) 300 Baso # (Auto) 100 Sodium 137 Potassium 4.1 Chloride 102 Carbon Dioxide 30 BUN 23 H Creatinine 0.81 Estimated GFR > 60 BUN/Creatinine Ratio 28.4 H Glucose 116 H Calcium 8.7 PFSH Medical History CVA (cerebral vascular accident) Stroke Social History household members: spouse Smoking Status: Never smoker alcohol intake: current Assessment & Plan Assessment & Plan narrative: Ms. Mejia is an 81W with PMH CVA, recent diagnosis of shingles who presents with lower extremity weakness. 1. Lower extremity weakness -etiology is possible from polypharmacy from pain meds, vs zoster paresis. Possibly deconditioning due to pain. ---other possible etiology to consider would be zoster caused transverse myelitis, or post infectious guillain barre, but think both are less likely -consider brain MRI and L-spine MRI as well depending on progress, though exam is not consistent with spinal or brain pathology. -consider outpatient EMG if continued weakness -PT consult, remains 2 person assist on assessment today, though patient and report improvement today. -patient does not want SNF placement 2. Acute urinary retention -etiology possibly from pain medications ---suspect less likely zoster caused as dermatome affected is above sacrum, also less likely spinal process -consider imaging as above -UA negative for infection 3. History of stroke -continue home meds 4. Hypothyroid -continue synthroid 5. Hypertension -continue losartan CODE: Full Proxy: Gorge Mejia, I have utilized all available resources to reconicle the patient's home medications. Dispo: probable discharge home with home health tomorrow. Time Spent With Patient Critical Care time: I spent a total of [] minutes of critical care time on this patient's care today; this time is exclusive of procedural time.
[2022-03-05 17:37] VITALS: BP 163/82; PULSE 88; RESP 14; TEMP 36.5; O2SAT 92
[2022-03-05] MEDS: VENLAFAXINE ER 37.5 MG CAP PO (18:11)
--- NOTE | 2022-03-05 18:27 | PC.NURSE ---
LIFE CONSULTANT removed gardner, pt tolerated well, LIFE CONSULTANT placed purewick and pt voided after.
[2022-03-05] MEDS: ATORVASTATIN 20 MG TABLET 40 MG PO (20:21)
[2022-03-06] VITALS: BP 133/80; PULSE 78; RESP 16; TEMP 36.4; O2SAT 95
--- NOTE | 2022-03-06 03:06 | PC.NURSE ---
Pt is AxOx4, pleasant and cooperative lady. VSS, pt c/o whole body pain when positioning or go to the bedside commode. Pt recieved PRN Tramadol at bedtime with good effect. Pt had L BM before she went to bed. Pt is 2 person assistance and follows cues and commands very well. Pt slept well. No other changes. Continue monitor.
[2022-03-06] MEDS: LEVOTHYROXINE 88 MCG TABLET PO (05:58)
[2022-03-06 06:00] VITALS: BP 159/82; PULSE 76; RESP 16; TEMP 36.8; O2SAT 94
[2022-03-06] MEDS: OXYCODONE IR 5 MG TABLET PO (06:40)
[2022-03-06] MEDS: ENOXAPARIN 40 MG/0.4 ML SYRINGE SUBCUT (08:57)
[2022-03-06] MEDS: TRAMADOL 50 MG TABLET PO (08:57)
[2022-03-06] MEDS: GABAPENTIN 300 MG CAPSULE PO (08:57)
--- NOTE | 2022-03-06 10:44 | P.DS_ITS ---
History of Present Illness History of Present Illness Date Patient Seen: 03/06/22 Chief complaint: weakness Narrative: Ms. Mejia is an 81W with PMH CVA who presents with weakness. She states she was diagnosed with shingles in January. The rash was in her lower chest and wrapped around to put of her back. She had quite significant paina nd was prescribed opiates and gabapentin. A few days after this her legs began to get weak. At baseline she has some difficulty walking, which began years ago since her stroke, but can ambulate with a walker and get up stairs. However, over the last two weeks per her and her they state she can not walk at all. She has no decreased sensation. She has not had any incontinence. She has no back pain. She continues to have pain at her rash site. In the ED workup was done, vitals noted to be normal. Labs notable for hemoglobin of 11.5, normal white count, creatinine 0.89. Troponin negative. COVID negative. CT head negative. Chest xray with no acute process. CT abdomen/pelvis with no acute process. She was noted to have urinary retention a nd had a gardner placed. She was unable to ambulate and needed two person assistance to the commode. Family history: asked and denies any medical problems in family Discharge Providers Provider Date of admission: 03/03/22 22:03 Discharge Date: 03/06/22 Primary care physician: Conchita Felipe PA-C Consults: 03/03/22 22:36 Consult to Physical Therapy Evaluate & Treat Comment: Physician Instructions: Evaluate and Treat 03/05/22 14:47 Consult to Home Health Routine Comment: Reason For Exam: Home Health RN, P.T, O.T. Discharge provider: Scot Wilburn DO Summary Hospital Course Discharge Diagnosis: 1. Lower extremity weakness 2. Acute urinary retention 3. History of stroke 4. Hypothyroid 5. Hypertension Hospital Course: Ms. Mejia is an 81W with PMH CVA, recent diagnosis of shingles who presents with lower extremity weakness. She had +5/5 strength bilaterally without any signs of spinal impingement or stroke over the course of her stay. With improvement in her herpetic neuralgia her strength slowly improved. She did require much assistance with PT, but did not want to discharge to SNF and was discharged home with home health. She had no fever and continued to improve over the course of her stay. Urinary retention was likely in the setting of opiates. She had a gardner catheter, and prior to discharge this was removed with adequate void after removal. I recommend continued follow up with home health and primary care provider as further possible evaluation if her weakness does continue could include EMG. I expect she should continue to improve with improvement in her herpetic neuralgia. Exam Vital Signs (past 8 hours): - 03/06/22 06:00 Temperature 98.3 F Pulse Rate 76 Respiratory Rate 16 Blood Pressure 159/82 H Pulse Oximetry 94 Oxygen Flow Rate 0 Oxygen Delivery Method Room Air Oxygen Flow Rate 0 Narrative Exam Narrative: GEN: no acute distress , much more comfortable today. HEENT: moist mucous membranes, PERRL NECK: trachea midline, no JVD PULM: clear bilaterally, no wheezes, rhonchi, rales CV: regular rate and rhythm, no murmurs ABD: soft, nontender, nondistended, no organomegaly EXT: warm and well perfused SKIN: healing rash on lower chest, upper abdomen, no vesicles NEURO: no sensory deficits. 5/5 strength in bilateral legs, reflexes bilaterally intact. Objective Labs Result Diagrams: 03/05/22 09:19 03/05/22 09:19 [facility] Medical History CVA (cerebral vascular accident) Stroke Social History household members: spouse Smoking Status: Never smoker alcohol intake: current Discharge Plan Discharge Plan Patient Disposition: Home Health Service Provider Discharge Comment: You were admitted to the hospital with weakness. There is no evidence of spinal impingement or stroke, and your movement improved slightly with pain control. Continue home pain medications. Continue PT at home ideally with home health. Discharge orders & Medications Prescriptions: Continued benzonatate 100 mg capsule 100 mg PO BID PRN (Reason: cough) Qty: 30 0RF levothyroxine 88 mcg tablet 1 tab PO SUTUTHSA levothyroxine 100 mcg tablet 1 tab PO MOWEFR venlafaxine 37.5 mg capsule,extended release 24hr 1 cap PO QPM losartan 100 mg tablet 100 mg PO DAILY Label Comments: TK 1 T PO QD oxybutynin chloride 5 mg tablet extended release 24hr 5 mg PO DAILY Label Comments: TAKE 1 TABLET BY MOUTH DAILY gabapentin 300 mg capsule 300 mg PO DAILY Label Comments: SEE INSTRUCTIONS aspirin-dipyridamole 25-200 mg capsule, ER multiphase 12 hr 1 cap PO BID Label Comments: TAKE 1 CAPSULE BY MOUTH TWICE A DAY omeprazole 20 mg capsule,delayed release(DR/EC) 200 mg PO DAILY Label Comments: TAKE 1 CAPSULE BY MOUTH EVERY DAY 30 MINUTES BEFORE BREAKFAST hydrocodone-acetaminophen 5-325 mg tablet 1 tab PO QID PRN (Reason: Pain (Scale Score 7-10)) cyanocobalamin (vitamin B-12) 1,000 mcg/mL Solution 1 dose IM Q2W cholecalciferol (vitamin D3) [Vitamin D3] 400 unit Capsule 400 unit PO DAILY atorvastatin [Lipitor] 20 mg Tablet 40 mg PO BEDTIME Qty: 60 0RF Follow up/Referrals: Conchita Felipe PA-C [Primary Care Provider] - Diet/Activity/Treatments Diet: Diet as Tolerated Activity: As tolerated, no restrictions. Discharge Data Primary Care Provider: Conchita Felipe Attending Provider: Easton Cope
--- NOTE | 2022-03-06 11:45 | CM.DPC ---
Addendum entered by Gladis Patel R.N. 03/06/22 15:15: Was able to get in touch with spouse, Gorge, who is here to pick patient up. Let him know that [facility] has been ordered. Addendum entered by Gladis Patel R.N. 03/06/22 15:02: Patient is supposed to discharge home today. Nursing had attempted to reach , have a message out to him. They were able to contact patient's son, Aroldo, and stated, he can help with getting patient home out of car. He may also attempt to reach out to his dad as well. Original Note: DCP Cont: Patient is supposed to discharge home today. Called Hugo at [facility] and updated her, and sent her copy of DC Summary. P: Patient is to be discharging home today with [facility]. Gladis Patel RN/Advisor To Command In Combat
[2022-03-06 12:00] VITALS: BP 129/75; PULSE 66; RESP 16; TEMP 36.2; O2SAT 92
== END 2022-03-06 15:34 | disposition home health service (06) ==
LOC: ED 21:59 → AC 22:03
PROVIDERS: Internal Medicine; Admitting Provider Internal Medicine; Emergency Provider Emergency Medicine; PCP Physician Assistant; Visit Provider Internal Medicine
DX: R53.1 Weakness (principal); Z86.73 Personal history of transient ischemic attack (TIA), and cerebral infarction without residual deficits; R29.700 NIHSS score 0; R33.9 Retention of urine, unspecified; E03.9 Hypothyroidism, unspecified; I10 Essential (primary) hypertension; Z20.822 Contact with and (suspected) exposure to COVID-19
CPT/HCPCS: 36415; 51798; 70450; 71045; 74177; 80048; 80053; 81003; 82550; 83690; 84484; 85025; 87635; 93005; 93010; 96372; 96374; 97162; 97530; 99284; C9803; G0378; J1650; J1885; Q9967

== ENCOUNTER → 2022-11-07 14:47 | Outpatient (CLI) | payer MEDICARE, OTHER, SELFPAY ==
--- NOTE | 2022-11-07 14:50 | DI.RAD.S_ITS ---
PROCEDURE: XR CHEST 2V INDICATIONS: chest congestion TECHNIQUE: 2 views of the chest were acquired. COMPARISON: [facility], , CHEST 1 VIEW, 08/13/2010, 3:54. FINDINGS: Surgical changes and devices: Surgical clips are noted in right breast unchanged from prior study.. Lungs and pleura: There is pulmonary vascular congestion. Mild pulmonary edema is also likely present. There is small left pleural effusion with left basilar atelectasis. No gross pneumothorax. Mediastinum: Mediastinal contours are normal. Heart size is enlarged. Bones and chest wall: No suspicious bony abnormalities. Soft tissues appear unremarkable. IMPRESSION: Cardiomegaly and mild congestion with mild pulmonary edema. Small left pleural effusion and left basilar atelectasis. No pneumothorax. Dictated by: Ken Atkins M.D. on 11/07/2022 at 17:18 Approved by: Ken Atkins M.D. on 11/07/2022 at 17:24
== END ==
PROVIDERS: PCP Physician Assistant; Referring Provider Nurse Practitioner Family; Visit Provider Nurse Practitioner Family
DX: J90 Pleural effusion, not elsewhere classified (principal); J81.1 Chronic pulmonary edema; R09.89 Other specified symptoms and signs involving the circulatory and respiratory systems; I51.7 Cardiomegaly; J98.11 Atelectasis
CPT/HCPCS: 71046

== ENCOUNTER → 2022-11-24 10:16 | Outpatient (ROUT) | payer MEDICARE, OTHER, SELFPAY ==
[2022-11-24 14:08] LABS: Alanine Aminotransferase 22 IU/L (<35); Albumin 3.6 g/dL (3.5-5.0); Albumin Globulin Ratio 1.1 (1.0-2.8); Alkaline Phosphatase 97 U/L (38-126); Aspartate Aminotransferase 31 IU/L (14-36); BUN Creatinine Ratio 32.4 (6-22); Bilirubin Total 0.5 mg/dL (0.2-1.3); Blood Urea Nitrogen 22 mg/dL (7-17); Calcium 8.7 mg/dL (8.4-10.2); Carbon Dioxide 30 mmol/L (22-32); Chloride 104 mmol/L (98-107); Estimated Glomerular Filt Rate > 60 mL/min (>60); Globulin 3.3 g/dL (1.7-4.1); Glucose 85 mg/dL (80-110); HEMOLYSIS < 15 (0-50); Potassium 4.3 mmol/L (3.4-5.1); Sodium 140 mmol/L (137-145); Total Protein 6.9 g/dL (6.3-8.2)
== END ==
PROVIDERS: PCP Physician Assistant; Visit Provider Physician Assistant
DX: I51.7 Cardiomegaly (principal); J81.0 Acute pulmonary edema; J90 Pleural effusion, not elsewhere classified; R09.89 Other specified symptoms and signs involving the circulatory and respiratory systems
CPT/HCPCS: 80053

== ENCOUNTER → 2022-12-07 17:10 | Outpatient (CLI) | payer MEDICARE, OTHER, SELFPAY ==
--- NOTE | 2022-12-07 | DI.RAD.S_ITS ---
PROCEDURE: XR CHEST 2V INDICATIONS: WHEEZING, SHORT OF BREATH TECHNIQUE: 2 views of the chest were acquired. COMPARISON: [facility], CR, XR CHEST 2V, 11/07/2022, 14:45. FINDINGS: Surgical changes and devices: None. Lungs and pleura: Low lung volumes. Diffuse interstitial prominence. Suspected small bilateral pleural effusions. Streaky bibasilar opacities without focal consolidation. No pneumothorax. Suggestion of mild vascular congestion. Mediastinum: The cardiomediastinal contours remain stable with enlargement of the cardiac silhouette. Atherosclerotic calcifications of the aortic arch are present. Bones and chest wall: No suspicious bony abnormalities. Soft tissues appear unremarkable. IMPRESSION: Cardiomegaly with findings suggestive of pulmonary edema. Streaky bibasilar opacities favored to represent atelectasis given diminished lung volumes. Developing airspace disease not excluded if clinically appropriate. Dictated by: Michele Atkins M.D. on 12/08/2022 at 9:28 Approved by: Michele Atkins M.D. on 12/08/2022 at 9:29
== END ==
PROVIDERS: PCP Physician Assistant; Referring Provider Physician Assistant; Visit Provider Physician Assistant
DX: I51.7 Cardiomegaly (principal); J81.0 Acute pulmonary edema
CPT/HCPCS: 71046

== ENCOUNTER → 2022-12-09 13:50 | Outpatient (CLI) | payer MEDICARE, OTHER, SELFPAY ==
--- NOTE | 2022-12-09 | DI.CT.S_ITS ---
PROCEDURE: CT ANGIO CHEST PE PROTOCOL INDICATIONS: Shortness of breath TECHNIQUE: After the administration of intravenous contrast, 2 mm thick sections acquired from the pulmonary apices to the posterior costophrenic angles. 3-dimensional maximum intensity projection (MIP) coronal and sagittal reformats were then acquired through the thorax. For radiation dose reduction, the following was used: automated exposure control, adjustment of mA and/or kV according to patient size. COMPARISON: [facility], CT, CHEST/ABD/PEL WITH CONTRAST, 10/20/2016, 9:46. FINDINGS: Image quality: Excellent. Pulmonary arteries: Pulmonary arteries are normal in size, and demonstrate no intraluminal filling defects to suggest central pulmonary embolism. Lungs and pleura: There are multiple bibasilar ill-defined nodular densities, which may represent atelectasis versus infiltrate. At least a portion of this does represent atelectasis. However, some nodular opacities are not definite atelectasis versus infiltrate. For instance, a 1 cm nodular density in the extreme right lung base on image 194/6, as well as an the extreme left basilar nodular density on image 194/6 measuring 6 mm. No pleural effusions or pneumothorax. Central and peripheral airways are patent. Mediastinum: Heart size is normal, without pericardial effusion. No mediastinal or hilar adenopathy. Thoracic aorta is normal in caliber and enhancement. Esophagus is normal in caliber, without hiatal hernia. Bones and chest wall: No suspicious bony lesions. Ribs and thoracic spine appear intact throughout. Thyroid gland is unremarkable. No axillary or supraclavicular adenopathy. Abdomen: Visualized upper abdominal solid organs appear normal in the early arterial phase of enhancement. Ventral superior anterior abdominal wall hernia containing fat. IMPRESSION: 1. No evidence acute pulmonary emboli. 2. Patchy bibasilar atelectasis, left greater than right. 3. There are bibasilar nodular densities which are not definitely atelectasis, which were not present on the prior study from 2017. Consider nonemergent chest CT in 2-3 months to identify whether any pulmonary nodules are present. Dictated by: Isidro Ferro M.D. on 12/09/2022 at 14:21 Approved by: Isidro Ferro M.D. on 12/09/2022 at 14:38
== END ==
PROVIDERS: PCP Physician Assistant; Referring Provider Internal Medicine; Visit Provider Internal Medicine
DX: J98.11 Atelectasis (principal)
CPT/HCPCS: 71275; Q9967

== ENCOUNTER 2023-02-02 12:37 | Emergency (ER) | payer MEDICARE, OTHER, SELFPAY ==
[2023-02-02] VITALS (7 sets, daily range): BP systolic 131–138; BP diastolic 63–84; PULSE 63–87; RESP 16–18; TEMP 36.7; O2SAT 92–95; BMI 27.4
--- NOTE | 2023-02-02 18:14 | ED_ITS ---
HPI - Skin/Abscess/Foreign Bdy General Chief complaint: Skin/Abscess/Foreign Body Stated complaint: bed sores Time Seen by Provider: 02/02/23 18:00 Source: patient Mode of arrival: Wheelchair Limitations: no limitations History of Present Illness HPI narrative: Patient is an 82-year-old female who is here with her for evaluation what appears to be bedsores. He also has a rash under her left breast. Patient has been quite a bit of time in a wheelchair secondary problems with ambulation. She has been working with physical therapy and does use a walker at times but spends most the time of the wheelchair. 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 He noticed some redness to her right buttock that he thinks his potentially pressure sores. He did put some cream over the area earlier today. Related Data Home Medications Medication Instructions Recorded Confirmed levothyroxine 100 mcg tablet 1 tab PO MOWEFR 01/10/18 11/07/22 levothyroxine 88 mcg tablet 1 tab PO SUTUTHSA 01/10/18 11/07/22 losartan 100 mg tablet 100 mg PO DAILY 01/10/18 11/07/22 venlafaxine 37.5 mg 1 cap PO QPM 01/10/18 11/07/22 capsule,extended release 24 hr cholecalciferol (vitamin D3) 10 400 unit PO DAILY 07/13/18 11/07/22 mcg (400 unit) capsule (Vitamin D3) cyanocobalamin (vitamin B-12) 1 dose IM Q2W 07/13/18 11/07/22 1,000 mcg/mL injection solution aspirin 25 mg-dipyridamole 200 mg 1 cap PO BID 03/04/22 11/07/22 capsule,ext.release 12 hr multiphase gabapentin 300 mg capsule 300 mg PO DAILY 03/04/22 11/07/22 omeprazole 20 mg capsule,delayed 200 mg PO DAILY 03/04/22 11/07/22 release oxybutynin chloride 5 mg 5 mg PO DAILY 03/04/22 11/07/22 tablet,extended release 24 hr hydrocodone 5 mg-acetaminophen 325 1 tab PO QID PRN Pain (Scale Score 03/06/22 11/07/22 mg tablet 7-10) Previous Rx's Medication Instructions Recorded atorvastatin 20 mg tablet (Lipitor) 40 mg PO BEDTIME #60 tabs 07/15/18 benzonatate 100 mg capsule 100 mg PO BID PRN cough #30 caps 12/14/21 nystatin 100,000 unit/gram topical 1 applic topical TID #15 grams 02/02/23 powder Allergies Allergy/AdvReac Type Severity Reaction Status Date / Time Penicillins [PENICILLINS] Allergy Severe LESIONS IN Verified 02/02/23 13:01 HER MOUTH ciprofloxacin [CIPROFLOXACIN] Allergy Intermediate tongue Verified 02/02/23 13:01 inflammation wheat [WHEAT] Allergy Unknown ABD PAIN Verified 02/02/23 13:01 Review of Systems Constitutional Constitutional: Reports system reviewed and no additional complaints, except as documented Integumentary/Breasts Skin/Breast: Reports system reviewed and no additional complaints, except as documented Neurologic Neurologic: Reports system reviewed and no additional complaints, except as documented Patient History Medical History CVA (cerebral vascular accident) Stroke Social History household members: spouse Smoking Status: Never smoker alcohol intake: current Smoking Status: Never smoker alcohol intake frequency: a few times a month Substance Use Type: does not use Exam Initial Vital Signs Initial Vital Signs: Vital Signs Temperature 98.1 F 02/02/23 13:01 Pulse Rate 87 02/02/23 13:01 Respiratory Rate 16 02/02/23 13:01 Blood Pressure 131/63 02/02/23 13:01 Pulse Oximetry 93 02/02/23 13:01 Oxygen Delivery Method Room Air 02/02/23 13:01 Const General: cooperative Skin Other: Patient has redness under her left breast that is very consistent with a yeast infection. His some erythema but no vesicles. She has what appears to be the beginnings of pressure ulcers on her right buttock. There is some sloughing of the skin but there is no ulcerations. There is no drainage. Neuro General: patient alert and patient awake Course Vital Signs Vital signs: Vital Signs - 8 hr 02/02/23 17:30 Pulse Rate 65 Blood Pressure 138/84 Pulse Oximetry 92 MDM - Skin/Abscess/Foreign Bdy MDM Narrative Medical decision making narrative: Patient has an obvious yeast infection under the left breast for which we will prescribe nystatin powder. We discussed other things that they can try to include keeping the area dry. She also has what appears to be the beginnings of pressure ulcers to her right buttocks. There is no signs of any infection in this area. There was no ulcerations. I had a long discussion with them about how they can try to prevent this from getting worse to include unloading pressure over the area. They were very receptive to this an expressed understanding and agreement. They were given return precautions. Discharge Plan Departure Patient Disposition: Home Clinical Impression: Pressure sore, Skin yeast infection Instructions: How to Prevent Pressure Ulcers, DI for Pressure Injuries, Yeast Infection-Skin Activity Restrictions/Additional Instructions: I do recommend that you try to stay as active as possible and try to keep the pressure specifically off the right hip. Use the nystatin powder until the yeast infection resolves. Then you can stop using it. If it reoccurs you can start using it again as needed. Return to the emergency department for new or worsening symptoms. Prescriptions: New nystatin 100,000 unit/gram powder 1 applic topical TID Qty: 15 2RF No Action benzonatate 100 mg capsule 100 mg PO BID PRN (Reason: cough) Qty: 30 0RF levothyroxine 88 mcg tablet 1 tab PO SUTUTHSA levothyroxine 100 mcg tablet 1 tab PO MOWEFR venlafaxine 37.5 mg capsule,extended release 24hr 1 cap PO QPM losartan 100 mg tablet 100 mg PO DAILY Patient Comments: TK 1 T PO QD oxybutynin chloride 5 mg tablet extended release 24hr 5 mg PO DAILY Patient Comments: TAKE 1 TABLET BY MOUTH DAILY gabapentin 300 mg capsule 300 mg PO DAILY Patient Comments: SEE INSTRUCTIONS aspirin-dipyridamole 25-200 mg capsule, ER multiphase 12 hr 1 cap PO BID Patient Comments: TAKE 1 CAPSULE BY MOUTH TWICE A DAY omeprazole 20 mg capsule,delayed release(DR/EC) 200 mg PO DAILY Patient Comments: TAKE 1 CAPSULE BY MOUTH EVERY DAY 30 MINUTES BEFORE BREAKFAST hydrocodone-acetaminophen 5-325 mg tablet 1 tab PO QID PRN (Reason: Pain (Scale Score 7-10)) cyanocobalamin (vitamin B-12) 1,000 mcg/mL Solution 1 dose IM Q2W cholecalciferol (vitamin D3) [Vitamin D3] 400 unit Capsule 400 unit PO DAILY atorvastatin [Lipitor] 20 mg Tablet 40 mg PO BEDTIME Qty: 60 0RF Referrals: Mallery,Floresita M, PA-C [Primary Care Provider] - Stand Alone Forms: Patient Portal/API
== END 2023-02-02 18:39 | disposition home or self-care (01) ==
PROVIDERS: Emergency Provider Emergency Medicine; PCP Physician Assistant
DX: L89.319 Pressure ulcer of right buttock, unspecified stage (principal); B37.2 Candidiasis of skin and nail
CPT/HCPCS: 99281

== ENCOUNTER → 2023-03-01 08:45 | Outpatient (CLI) | payer MEDICARE, OTHER, SELFPAY | PROVIDERS: Family Provider Physician Assistant; PCP Physician Assistant; Referring Provider Physician Assistant; Visit Provider Surgery | DX: L89.301 Pressure ulcer of unspecified buttock, stage 1 (principal) | CPT/HCPCS: 99203; 99212 ==

== ENCOUNTER → 2023-03-06 15:44 | Outpatient (CLI) | payer MEDICARE, OTHER, SELFPAY ==
--- NOTE | 2023-03-06 | DI.CT.S_ITS ---
PROCEDURE: CT CHEST WO CON INDICATIONS: Abnormal findings on diagnostic imaging of chest TECHNIQUE: Noncontrast 5 mm thick sections acquired from the pulmonary apices to the posterior costophrenic angles. 1 mm lung window, 5 mm thick coronal and sagittal and 7 mm axial MIP reformats were then acquired. For radiation dose reduction, the following was used: automated exposure control, adjustment of mA and/or kV according to patient size. COMPARISON: [facility], CT, CT ABDOMEN PELVIS W CON, 03/03/2022, 21:01. [facility], CT, CT ANGIO CHEST PE PROTOCOL, 12/09/2022, 14:05. FINDINGS: Image quality: Excellent. Lungs and pleura: Mild geographic ground-glass radiopacities are noted bilaterally suggesting a component of air trapping. Pulmonary scarring is present within the anterior aspect of the right upper lobe unchanged from the study dated December 09, 2022. Pulmonary radiopacities are redemonstrated at the posterior left lung base unchanged from the study dated December 09, 2022, but new when compared with the study dated 03/03/22. The questionable spiculated nodule within the posterior medial basal segment of the right lower lobe appears decreased in size when compared with the study dated December 09, 2022; however breathing motion artifact at the diaphragm limits evaluation of this region. No new suspicious pulmonary nodules. No pleural effusion or pneumothorax. Mediastinum: Heart size is normal. No pericardial effusion. No mediastinal adenopathy by size criteria. Thoracic aorta and central pulmonary arteries are normal in size. Scattered atheromatous calcifications are present within the aortic arch. Esophagus is normal in caliber. No hiatal hernia. Bones and chest wall: Postsurgical changes are present within the upper outer quadrant of the right breast. No suspicious bony lesions. No vertebral body compression fractures. No axillary or supraclavicular adenopathy by size criteria. Thyroid gland is unremarkable. Abdomen: Visualized upper abdominal solid organs and bowel loops appear normal in the absence of contrast. IMPRESSION: 1. Poor characterization of the posterior lung bases. The spiculated nodule at the right lung base appears less conspicuous and decreased in size, but evaluation is limited by breathing motion artifact. The airspace opacities at the left lung base appear unchanged from December 09, 2022. It is unclear whether these represent atelectasis, scar, chronic inflammatory/infectious changes, or neoplasm. If further characterization is warranted, either consider 3 month follow-up or improved inspiration during CT of the chest or prone CT of the chest. Dictated by: Laly Bowman M.D. on 03/07/2023 at 10:14 Approved by: Laly Bowman M.D. on 03/07/2023 at 10:22
== END ==
PROVIDERS: Family Provider Physician Assistant; PCP Physician Assistant; Referring Provider Physician Assistant; Visit Provider Physician Assistant
DX: R93.89 Abnormal findings on diagnostic imaging of other specified body structures (principal)
CPT/HCPCS: 71250

== ENCOUNTER → 2023-03-27 09:55 | Outpatient (CLI) | payer MEDICARE, OTHER, SELFPAY | PROVIDERS: Family Provider Physician Assistant; PCP Physician Assistant; Referring Provider Physician Assistant; Visit Provider Surgery | DX: L89.301 Pressure ulcer of unspecified buttock, stage 1 (principal); R21 Rash and other nonspecific skin eruption | CPT/HCPCS: 99211; 99213 ==

== ENCOUNTER 2023-08-20 18:11 | Emergency (ER) | payer MEDICARE, OTHER, SELFPAY ==
[2023-08-20 18:23] VITALS: BP 120/73; PULSE 88; RESP 20; TEMP 36.8; O2SAT 96; BMI 28.7
--- NOTE | 2023-08-20 18:45 | PC.NURSE ---
Addendum entered by Megan North CNA 08/20/23 19:02: Pt turned to side to relieve pressure on buttocks. Original Note: Pt came to the ED with her because pt has mobility issues and has been experiencing ongoing worsening pressure injuries on her buttocks and external hemorrhoids. Pt reports putting barrier cream on area and that her helps her with ROM and mobility exercises. notes that he is the primary caregiver to pt and also provides all of her other daily care and assists with ADLs. reports feeling overwhelmed at times and unable to move pt or turn her as often as he would like and sometimes pt does not want to move around. Dark purple and blanchable pressure injuries observed bilaterally on pt buttocks. External hemorrhoid also observed. Pt states that she does not have any pain when sitting still or when pressure injuries are touched. Pt a&ox4. Pressure injuries clean and no open areas observed. Skin overall appearance warm, dry and intact.
[2023-08-20 20:18] VITALS: BP 152/71; PULSE 80; RESP 16; TEMP 36.5; O2SAT 92
--- NOTE | 2023-08-20 21:47 | ED_ITS ---
HPI - Skin/Abscess/Foreign Bdy General Chief complaint: Skin/Abscess/Foreign Body Stated complaint: perineal area irritation/post shingles Time Seen by Provider: 08/20/23 20:50 Source: patient Mode of arrival: Wheelchair Limitations: no limitations History of Present Illness HPI narrative: 83-year-old female who arrives by private vehicle and is accompanied by her who contributes to the history. She is concerned about skin irritation in the sacral area. She has pre-existing sacral pressure issues on her skin that have been present for months, they feel it is more red than it has been in the past. It is irritated when there was urine on it. She has been seen at wound care in the past not recently. She has an appointment coming up in about a week with her primary care provider. She has not had fevers she has not had dysuria Related Data Home Medications Medication Instructions Recorded Confirmed levothyroxine 100 mcg tablet 1 tab PO MOWEFR 01/10/18 05/26/23 levothyroxine 88 mcg tablet 1 tab PO SUTUTHSA 01/10/18 05/26/23 venlafaxine 37.5 mg 1 cap PO QPM 01/10/18 05/26/23 capsule,extended release 24 hr cyanocobalamin (vitamin B-12) 1 dose IM Q2W 07/13/18 05/26/23 1,000 mcg/mL injection solution aspirin 25 mg-dipyridamole 200 mg 1 cap PO BID 03/04/22 05/26/23 capsule,ext.release 12 hr multiphase omeprazole 20 mg capsule,delayed 200 mg PO DAILY 03/04/22 05/26/23 release oxybutynin chloride 5 mg 5 mg PO DAILY 03/04/22 05/26/23 tablet,extended release 24 hr losartan 100 mg tablet 50 mg PO DAILY 02/24/23 05/26/23 pregabalin 75 mg capsule (Lyrica) 75 mg PO DAILY 02/24/23 05/26/23 Previous Rx's Medication Instructions Recorded atorvastatin 20 mg tablet (Lipitor) 40 mg (2 x 20 mg) PO BEDTIME #60 07/15/18 tabs nystatin 100,000 unit/gram topical 1 applic topical TID #15 grams 02/02/23 powder albuterol sulfate 90 mcg/actuation 2 puff inhalation Q6H PRN 03/01/23 aerosol inhaler shortness of breath or wheezing #6.7 grams Allergies Allergy/AdvReac Type Severity Reaction Status Date / Time Penicillins [PENICILLINS] Allergy Severe LESIONS IN Verified 08/20/23 18:30 HER MOUTH ciprofloxacin [CIPROFLOXACIN] Allergy Intermediate tongue Verified 08/20/23 18:30 inflammation Patient History Medical History Pulmonary nodules CVA (cerebral vascular accident) Stroke Family History Father Hypertension Heart disease Mother Breast cancer Social History marital status: household members: spouse lives independently: Yes occupational status: previously employed Smoking Status: Never smoker alcohol intake: current substance use type: unknown Smoking Status: Never smoker alcohol intake frequency: a few times a month Substance Use Type: does not use Exam Initial Vital Signs Initial Vital Signs: Vital Signs Temperature 98.2 F 08/20/23 18:23 Pulse Rate 88 08/20/23 18:23 Respiratory Rate 20 08/20/23 18:23 Blood Pressure 120/73 08/20/23 18:23 Pulse Oximetry 96 08/20/23 18:23 Oxygen Delivery Method Room Air 08/20/23 18:23 Const General: No acute distress Resp Effort & Inspection: normal respiratory effort Skin Other: There is erythema of the skin in the sacral area. There is no actual ulcer present. This area is not warm it is not tender. Course Vital Signs Vital signs: Vital Signs - 8 hr 08/20/23 18:23 08/20/23 20:18 Temperature 98.2 F 97.7 F Pulse Rate 88 80 Respiratory Rate 20 16 Blood Pressure 120/73 152/71 H Pulse Oximetry 96 92 Oxygen Delivery Method Room Air Room Air MDM - Skin/Abscess/Foreign Bdy MDM Narrative Medical decision making narrative: 83-year-old female with chronic skin changes related to pressure. Does not appear to be acutely infected, no other acute symptoms identified at this point I do not think further ED workup is required. Recommended she follow up with wound care and primary care Discharge Plan Departure Patient Disposition: Home Clinical Impression: Decubitus ulcer of back, stage 1 Activity Restrictions/Additional Instructions: Exam today is reassuring. I do not think these wounds are infected however clearly we need to have less pressure on her sacral area throughout the day. Keeping her up on her side and keeping the area clean and dry and protecting it from urine will be important. You can try Calmoseptine ointment applied to the affected area. This is available [id number] in the incontinence care areas of pharmacies. Follow up as scheduled with primary care. You could call [facility] at [phone] to see if she can be seen there soon. Return to the emergency department for fevers shortness of breath or other acute symptoms. Prescriptions: No Action albuterol sulfate 90 mcg/actuation HFA aerosol inhaler 2 puff inhalation Q6H PRN (Reason: shortness of breath or wheezing) Qty: 6.7 5RF levothyroxine 88 mcg tablet 1 tab PO SUTUTHSA levothyroxine 100 mcg tablet 1 tab PO MOWEFR venlafaxine 37.5 mg capsule,extended release 24hr 1 cap PO QPM losartan 100 mg tablet 50 mg PO DAILY Patient Comments: TK 1 T PO QD oxybutynin chloride 5 mg tablet extended release 24hr 5 mg PO DAILY Patient Comments: TAKE 1 TABLET BY MOUTH DAILY aspirin-dipyridamole 25-200 mg capsule, ER multiphase 12 hr 1 cap PO BID Patient Comments: TAKE 1 CAPSULE BY MOUTH TWICE A DAY omeprazole 20 mg capsule,delayed release(DR/EC) 200 mg PO DAILY Patient Comments: TAKE 1 CAPSULE BY MOUTH EVERY DAY 30 MINUTES BEFORE BREAKFAST nystatin 100,000 unit/gram powder 1 applic topical TID Qty: 15 2RF cyanocobalamin (vitamin B-12) 1,000 mcg/mL Solution 1 dose IM Q2W atorvastatin [Lipitor] 20 mg Tablet 40 mg PO BEDTIME Qty: 60 0RF pregabalin [Lyrica] 75 mg capsule 75 mg PO DAILY Referrals: Floresita King PA-C [Primary Care Provider] - Stand Alone Forms: Patient Portal/API
== END 2023-08-20 22:06 | disposition home or self-care (01) ==
PROVIDERS: Emergency Provider Emergency Medicine; Family Provider Physician Assistant; PCP Physician Assistant
DX: L89.101 Pressure ulcer of unspecified part of back, stage 1 (principal)
CPT/HCPCS: 99281; 99282

== ENCOUNTER → 2023-08-24 08:50 | Outpatient (CLI) | payer MEDICARE, OTHER, SELFPAY ==
--- NOTE | 2023-08-24 | OV.WND_ITS ---
Progress Note Details Patient Name: Tenisha Mejia Patient Number: [id number] Clinician: Berna Mc RN Patient Date of : 1940 Physician / Enforcement Officer: Ken Leyva Patient SUBJECTIVE Chief Complaint This information was obtained from the Patient. Wounds on my bottom Allergies penicillin, ciprofloxacin (Reaction: nausea and vomiting), clopidogrel (Reaction: anaphylaxis), atorvastatin (Reaction: myalgia), simvastatin (Reaction: myalgia), wheat (Reaction: Constipation), lisinopril (Reaction: cough) HPI This information was obtained from the Patient. The following HPI elements were documented for the patient's wound: Location: buttocks Duration: 07/17/23 Context: pressure The patient is an 83 year old female with previous CVA who returns today for readmission to the wound center for evaluation of possible pressure ulcer on the buttocks. Patient has noted increased itching and discomfort and the has noted some skin changes and occasional bloody drainage. The patient was previously seen at the wound center March 2023 at which time she was noted to have a fungal rash involving the buttocks and gluteal cleft. She was prescribed some Lotrisone in the rash improved. Patient has very limited mobility secondary to her previous CVA and spends most of her time in bed or in her chair. The patient also has frequent urinary and fecal incontinence. She reports a good appetite and denies having any other recent changes in her overall health. The patient does not use pressure offloading cushions when sitting. On exam today there is a stage I pressure ulcer on both buttocks, no sign of rash or infection. There are no recent labs or imaging studies for review. Family History This information was obtained from the Patient. Cancer- Mother Heart Disease- Father Thyroid Problems- Mother Social History This information was obtained from the Chart, Patient. 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 Patient has a medical history of: CVA Diverticulitis Thrombocytosis Transient Ischemic Attack (TIA) Gastro Esoph. Reflux Disease (GERD) STONEY-2 gene mutation Depression Hypertension Hyperlipidemia Breast cancer Additional Information Does patient have a history of Cancer? Yes? Complete all questions.: Yes Location of Cancer: Breast Patient underwent Radiation Treatment? If yes, answer question below.: Yes Date of Radiation Month/Year: Unknown date, year of 1999' Surgical History This information was obtained from the Patient. Patient has a surgical history of: Breast Cancer- Bi-Lat Hip Surgeries- Hernia Repair- Brain Biopsy 2017- Review of Systems (ROS) This information was obtained from the Patient. Complaints and Symptoms Patient com plains of: General Notes: I have reviewed and concur with the Review of Systems and Past Family Social History documents completed by the clinician, I have reviewed and concur with the Wound Assessment document completed by the clinician Hematologic/Lymphatic: Bleeding Tendency Integumentary (Hair/Skin/Nails): Open Sore Musculoskeletal: Assistive Devices, Muscle Weakness Prior Wound History: Drainage, Pain Patient denies com plaints or sy m ptom s related to: Cardiovascular (Central): Chest Pain, Dyspnea on Exertion Constitutional Symptoms (General Health): Chills, Fever Ear/Nose/Mouth/Throat: Hearing Loss / Aid Hematologic/Lymphatic: Bleeding / Clotting Disorders Tenisha Mejia [id number] 1940 Neurological: Loss of Protective Sensation Psychiatric: Memory Loss Respiratory: Shortness of Breath General Notes Immunizations managed by PCP. OBJECTIVE Vitals Height/Length: 62 in (157.48 cm), Weight: 159.4 lbs (72.45 kgs), BMI: 29.2, Temperature: 98.7 ?F (37.06 ?C), Pulse: 67 bpm, Respiratory Rate: 18 breaths/min, Blood Pressure: 135/83 mmHg, Pulse Oximetry: 94 %. Physical Exam Constitutional: Vital signs reviewed and noted. Generalized weakness. In no apparent distress. Respiratory: Even respirations without use of accessory muscles. No intercoastal retractions noted. Even and non labored respiration. Gastrointestinal (GI): large external hemorrhoids. Integumentary (Hair, Skin): See wound assessment. Neurological: Sensation: Symmetric function by informal observation. Psychiatric: Orientation to time, place and person: Normal affect with normal thought pattern. Additional Information The patient's potential to heal is: good. Wound Assessment(s) Wound #7 Buttock both buttocks is a chronic Stage 1 Pressure Injury Pressure Ulcer and has received a status of Not Healed. Initial wound encounter measurements are 5.5cm length x 9cm width with no measurable depth, with an area of 49.5 sq cm. No tunneling has been noted. No sinus tract has been noted. No undermining has been noted. There was no drainage noted. The patient reports a wound pain of level 0/10. The wound margin is attached Wound bed has No, granulation, No slough, No eschar, No epithelialization. The periwound skin exhibited ecchymosis. The temperature of the periwound skin is WNL. Local Pulse is N/A. General Notes Purple discoloration to buttocks, no open area visible at this time. Additional Information Limited to breakdown of skin: Yes ASSESSMENT Active Problems ICD-10 (Encounter Diagnosis) L89.311 - Pressure ulcer of right buttock, stage 1 [place] [id number] 1940 (Encounter Diagnosis) L89.321 - Pressure ulcer of left buttock, stage 1 General Notes Stage I pressure ulcer both buttocks with some possible dermatologic irritation from fecal and stool incontinence The following factors have been identified that may affect wound healing: Advanced age Immobility Ongoing local pressure Incontinence Goals: Reduce pressure Protect skin Reduce incontinence Plan: Apply zinc barrier cream to buttocks, use Roho cushion when sitting for pressure offloading, turned from side to side to avoid direct pressure on buttocks, consider using wick to help with urinary incontinence, start met him useful for external hemorrhoids. Follow up in 1 month for a recheck. PLAN Wound Orders: Wound #7 Buttock both buttocks Hygiene May shower Other order - Cleanse buttocks with gentle soap and water after each incontinence episode. Topical Treatments Barrier ointment to protect surround skin - Zinc based barrier cream (40% zinc- as active ingredient) to protect skin, apply twice daily, or more as needed for incontinence episodes. Other order - You may notice residual film of barrier cream after wiping away. You can use warm soapy water and wash cloth to wipe away old barrier cream about every other day. To thoroughly clean off barrier cream, you can use mineral oil to removal all residual film. Off-Loading Wheelchair Cushion - EHOB cushion given in clinic. 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 Seat lifts or shift position in chair every 15 minutes Turn every 2 hours. Avoid position directing pressure to Wound site. Limit side lying to 30 degree tilt. Limit HOB elevation to 30 degrees in bed. Physician Review: Discussed the Plan of Care @ bedside with - the patient and her Reviewed hospital records. I, as the physician, have reviewed the orders scribed by the center RN's and agree. Additional Orders: Other Instructions: - Look into or discuss with your PCP, the appropriateness of a PureWick urine collection system for bedtime use. Follow-Up Appointments Return Appointment - One month. Other information: If you develop fever, chills, increased pain, drainage, redness or swelling please call our office. If after hours, respond to the ER. Should you experience any significant changes in your wound(s) or have any questions regarding your home care instructions please contact the wound center @ [phone]. If after hours, contact your primary care physician or go to the hospital emergency room. Scribing Attestation I attest, as the nurse, that I scribed these orders for the physician. Tenisha Mejia [id number] 1940 Plan of Care: 01. ENSURE/ESTABLISH OPTIMAL BLOOD FLOW : - Reviewed, not applicable 02. ASSESS FOR/TREAT INFECTION : - Reviewed, not applicable 03. DEBRIDE WEEKLY OR MORE OFTEN PRN : - Reviewed, not applicable 04. OPTIMIZE GLUCOSE CONTROL and NUTRITION : - Complete a nutrition risk assessment. 05. OFFLOADING PLAN : - Evaluate plan for offloading - Provide education materials/discuss offloading strategies as appropriate. 06. OPTIMIZE HOST FACTORS: - Assess and review patient history for wound etiology, co-morbid conditions, medication regime, and smoking history. - Assess lifestyle factors such as smoking, alcohol/drug abuse, eating habits/malnutrition and activity level. 07. DRESSING SELECTION : - Choose topical treatments and/or dressing based on wound type and appearance, periwound skin condition, wound size and depth, anatomic location, volume of exudate, edema in the lower extremities, and risk or presence of infection. 08. ADVANCED MODALITIES : - Set treatment goals according to patient and/or caregiver???s ability/ compliance. - Re-evaluate plan of care if no evidence of healing (40% in 4 weeks). 09. FALL PREVENTION : - Complete fall assessment. - Provide education materials/discuss prevention strategies as appropriate. 10. PAIN MANAGEMENT : - Reviewed, not applicable 11. MEASURABLE GOALS for Wound Healing and/or Hyperbaric Oxygen Therapy : - Implement protocols to promote healing and impede further injury 12. DURATION/FREQUENCY of Wound Care Visits : - 1x month for next few months (as needed for Palliative) - Not palliative. Electronic Signature(s) Signed By: Date: Ken Leyav MD 08/24/2023 15:40:25 (PT) Entered By: Ken Leyva MD on 08/24/2023 10:16:36 (PT) Tenisha Mejia [id number] 1940
== END ==
PROVIDERS: Family Provider Physician Assistant; PCP Physician Assistant; Referring Provider Emergency Medicine; Visit Provider Surgery
DX: L89.311 Pressure ulcer of right buttock, stage 1 (principal); L89.321 Pressure ulcer of left buttock, stage 1; R23.3 Spontaneous ecchymoses; N39.46 Mixed incontinence; M62.81 Muscle weakness (generalized); Z86.73 Personal history of transient ischemic attack (TIA), and cerebral infarction without residual deficits
CPT/HCPCS: 99213

== ENCOUNTER → 2023-09-25 12:57 | Outpatient (CLI) | payer MEDICARE, OTHER, SELFPAY | LOC: WC 12:58 | PROVIDERS: Family Provider Physician Assistant; PCP Physician Assistant; Referring Provider Emergency Medicine; Visit Provider Surgery | DX: L89.311 Pressure ulcer of right buttock, stage 1 (principal); L89.321 Pressure ulcer of left buttock, stage 1; R23.3 Spontaneous ecchymoses; M62.81 Muscle weakness (generalized); N39.46 Mixed incontinence | CPT/HCPCS: 99213 ==

== ENCOUNTER → 2023-10-25 11:40 | Outpatient (CLI) | payer MEDICARE, OTHER, SELFPAY | LOC: WC 11:42 | PROVIDERS: Family Provider Physician Assistant; PCP Physician Assistant; Referring Provider Emergency Medicine; Visit Provider Surgery | DX: Z09 Encounter for follow-up examination after completed treatment for conditions other than malignant neoplasm (principal); Z87.2 Personal history of diseases of the skin and subcutaneous tissue; L89.311 Pressure ulcer of right buttock, stage 1; L89.321 Pressure ulcer of left buttock, stage 1 | CPT/HCPCS: 99212; 99213 ==

== ENCOUNTER 2024-04-05 10:48 | Emergency (ER) | payer MEDICARE, OTHER, SELFPAY ==
[2024-04-05 10:57] VITALS: BP 153/80; PULSE 80; RESP 16; TEMP 36.2; O2SAT 94; BMI 27.4
[2024-04-05 12:33] VITALS: PULSE 87; O2SAT 93
[2024-04-05 12:34] VITALS: BP 142/93; PULSE 86; O2SAT 93
[2024-04-05 13:00] VITALS: PULSE 74; O2SAT 94
[2024-04-05 13:01] VITALS: BP 126/62; PULSE 83; RESP 16; O2SAT 94
--- NOTE | 2024-04-05 13:09 | ED.GENADULT ---
HPI - General Adult General Chief complaint: Vaginal Bleeding Stated complaint: External Hemorrhoid bleeding, Vaginal pain Time Seen by Provider: 04/05/24 11:18 Source: patient and family Mode of arrival: Family Vehicle Limitations: no limitations History of Present Illness HPI narrative: Patient is an 84-year-old female. Has mobility issues secondary to prior history of strokes. Has had issues with skin breakdown on her buttocks. Her is at bedside and is obviously a while attentive . She was here for hemorrhoids. Has had hemorrhoids in the past. Off and on for the past couple years. Over the past several days/week or so she was had an increase in the amount of bleeding. She was not painful for her to go to the bathroom. No urinary issues. I have tried some topical numbing cream over the past couple days. She denies diarrhea or constipation. Related Data Home Medications Medication Instructions Recorded Confirmed levothyroxine 100 mcg tablet 1 tab PO MOWEFR 01/10/18 12/14/23 levothyroxine 88 mcg tablet 1 tab PO SUTUTHSA 01/10/18 12/14/23 venlafaxine 37.5 mg 1 cap PO QPM 01/10/18 12/14/23 capsule,extended release 24 hr cyanocobalamin (vitamin B-12) 1 dose IM Q2W 07/13/18 12/14/23 1,000 mcg/mL injection solution aspirin 25 mg-dipyridamole 200 mg 1 cap PO BID 03/04/22 12/14/23 capsule,ext.release 12 hr multiphase omeprazole 20 mg capsule,delayed 200 mg PO DAILY 03/04/22 12/14/23 release losartan 100 mg tablet 50 mg PO DAILY 02/24/23 12/14/23 pregabalin 75 mg capsule (Lyrica) 75 mg PO DAILY 02/24/23 12/14/23 Previous Rx's Medication Instructions Recorded atorvastatin 20 mg tablet (Lipitor) 40 mg (2 x 20 mg) PO BEDTIME #60 07/15/18 tabs nystatin 100,000 unit/gram topical 1 applic topical TID #15 grams 02/02/23 powder albuterol sulfate 90 mcg/actuation 2 puff inhalation Q6H PRN 03/01/23 aerosol inhaler shortness of breath or wheezing #6.7 grams vibegron 75 mg tablet (Gemtesa) 75 mg PO DAILY #90 tabs 09/12/23 lidocaine 5 % topical gel 1 ea topical BID PRN pain #10 grams 04/05/24 pramoxine 1 % topical foam 1 applic VA TID #15 grams 04/05/24 (Proctofoam) Allergies Allergy/AdvReac Type Severity Reaction Status Date / Time Penicillins [PENICILLINS] Allergy Severe LESIONS IN Verified 04/05/24 11:05 HER MOUTH ciprofloxacin [CIPROFLOXACIN] Allergy Intermediate tongue Verified 04/05/24 11:05 inflammation Review of Systems Review of Systems Narrative: See HPI Patient History Medical History Incontinence of urine Incontinence Hx of cancer antigen 125 (CA-125) measurement Cancer Pulmonary nodules CVA (cerebral vascular accident) Stroke Surgical History (Updated 12/15/23 @ 16:35 by Jesus Manuel Samuel MD) Hx of breast biopsy History of hip replacement Family History Father Hypertension Heart disease Mother Breast cancer Social History marital status: household members: spouse lives independently: Yes occupational status: previously employed Smoking Status: Never smoker alcohol intake: current substance use type: does not use and unknown Smoking Status: Never smoker alcohol intake frequency: a few times a month Substance Use Type: does not use Exam Initial Vital Signs Initial Vital Signs: Vital Signs Temperature 97.2 F L 04/05/24 10:57 Pulse Rate 80 04/05/24 10:57 Respiratory Rate 16 04/05/24 10:57 Blood Pressure 153/80 H 04/05/24 10:57 Pulse Oximetry 94 04/05/24 10:57 Oxygen Delivery Method Room Air 04/05/24 10:57 Const General: cooperative, comfortable and No ill appearing GI Inspection: normal to inspection and non-distended Rectal Exam: hemorrhoids Skin Other: Does have some skin changes in the buttocks consistent with pressure wounds. No skin breakdown. No signs of infection. Neuro General: patient alert and patient awake Course Vital Signs Vital signs: Vital Signs - 8 hr 04/05/24 10:57 Temperature 97.2 F L Pulse Rate 80 Respiratory Rate 16 Blood Pressure 153/80 H Pulse Oximetry 94 Oxygen Delivery Method Room Air Medical Decision Making MDM Narrative Medical decision making narrative: Patient has obvious external hemorrhoids. No signs of infection. They are thrombosed. I have low suspicion that this is vaginal bleeding. She was not complaining of constipation or diarrhea. For now will treat conservatively with Proctofoam and topical analgesics. She was given contact information for General surgery. Was given return precautions and follow-up instructions. She expressed understanding and agreement. Discharge Plan Departure Patient Disposition: Home Clinical Impression: Hemorrhoids Instructions: DI for Hemorrhoids Activity Restrictions/Additional Instructions: It is important that you maintain a diet where you are not having constipation or diarrhea. You can try [id number] medication such as preparation H and which atrial/tucks pads. I recommend you contact your primary care doctor for follow-up. Return to the emergency department for new symptoms. Prescriptions: New pramoxine [Proctofoam] 1 % foam 1 applic VA TID Qty: 15 2RF lidocaine 5 % gel 1 ea topical BID PRN (Reason: pain) Qty: 10 0RF No Action albuterol sulfate 90 mcg/actuation HFA aerosol inhaler 2 puff inhalation Q6H PRN (Reason: shortness of breath or wheezing) Qty: 6.7 5RF levothyroxine 88 mcg tablet 1 tab PO SUTUTHSA levothyroxine 100 mcg tablet 1 tab PO MOWEFR venlafaxine 37.5 mg capsule,extended release 24hr 1 cap PO QPM losartan 100 mg tablet 50 mg PO DAILY Patient Comments: TK 1 T PO QD aspirin-dipyridamole 25-200 mg capsule, ER multiphase 12 hr 1 cap PO BID Patient Comments: TAKE 1 CAPSULE BY MOUTH TWICE A DAY omeprazole 20 mg capsule,delayed release(DR/EC) 200 mg PO DAILY Patient Comments: TAKE 1 CAPSULE BY MOUTH EVERY DAY 30 MINUTES BEFORE BREAKFAST nystatin 100,000 unit/gram powder 1 applic topical TID Qty: 15 2RF cyanocobalamin (vitamin B-12) 1,000 mcg/mL Solution 1 dose IM Q2W atorvastatin [Lipitor] 20 mg Tablet 40 mg PO BEDTIME Qty: 60 0RF pregabalin [Lyrica] 75 mg capsule 75 mg PO DAILY Gemtesa 75 mg tablet 75 mg PO DAILY Qty: 90 3RF Referrals: Jesus Manuel Samuel MD [Physician] - Mallery,Floresita M, PA-C [Primary Care Provider] - Stand Alone Forms: Patient Portal/API
[2024-04-05 13:30] VITALS: BP 124/68; PULSE 78; O2SAT 94
== END 2024-04-05 13:45 | disposition home or self-care (01) ==
PROVIDERS: Emergency Provider Emergency Medicine; Family Provider Physician Assistant; PCP Physician Assistant
DX: K64.9 Unspecified hemorrhoids (principal)
CPT/HCPCS: 99281

== ENCOUNTER → 2024-05-01 15:03 | Outpatient (CLI) | payer MEDICARE, OTHER, SELFPAY | PROVIDERS: Family Provider Physician Assistant; PCP Physician Assistant; Visit Provider Urology | DX: R32 Unspecified urinary incontinence (principal) | CPT/HCPCS: 87086 ==

== ENCOUNTER 2024-05-04 14:24 | Emergency (ER) | payer MEDICARE, OTHER, SELFPAY ==
[2024-05-04] VITALS (10 sets, daily range): BP systolic 134–197; BP diastolic 77–98; PULSE 77–109; RESP 16–24; TEMP 36.2; O2SAT 92–94; BMI 27.4
[2024-05-04 15:17] LABS: Add Manual Diff / Slide Review NO; Basophils Absolute Auto 100 /uL (0-100); Basophils Percent Auto 0.6 % (0-2); Eosinophils Absolute Auto 100 /uL (0-450); Hematocrit 33.8 % (36-46); Hemoglobin 11.3 g/dL (12.0-16.0); Lymphocytes Absolute Auto 1400 /uL (1100-4500); Lymphocytes Percent Auto 11.8 % (25-40); Mean Corpuscular HGB Conc 33.4 % (30-36); Mean Corpuscular Hemoglobin 30.4 PG (26-34); Mean Corpuscular Volume 90.9 fL (80-100); Monocytes Absolute Auto 600 /uL (0-900); Monocytes Percent Auto 5.1 % (3-14); Neutrophils Absolute Auto 9400 /uL (1500-7000); Neutrophils Percent Auto 81.5 % (50-75); Platelet Count 548 X10^3/uL (150-400); Red Blood Cell Count 3.72 X10^6/uL (4.0-5.2); Red Cell Distribution Width 17.8 % (11.6-14.8); White Blood Cell Count 11.6 X10^3/uL (4.5-11.0)
[2024-05-04 15:21] LABS: INR 1.1 (0.9-1.3); Prothrombin Time 12.6 SECONDS (9.4-12.5)
[2024-05-04 15:25] LABS: Alanine Aminotransferase 19 IU/L (<35); Albumin Globulin Ratio 1.2 (1.0-2.8); Alkaline Phosphatase 99 U/L (38-126); Aspartate Aminotransferase 27 IU/L (14-36); BUN Creatinine Ratio 16.9 (6-22); Bilirubin Total 0.6 mg/dL (0.2-1.3); Blood Urea Nitrogen 12 mg/dL (7-17); Calcium 8.9 mg/dL (8.4-10.2); Carbon Dioxide 26 mmol/L (22-32); Chloride 102 mmol/L (98-107); Estimated Glomerular Filt Rate > 60 mL/min (>60); Globulin 3.4 g/dL (1.7-4.1); Glucose 101 mg/dL (80-110); HEMOLYSIS < 15 (0-50); Lipase 78 U/L (23-300); Potassium 3.9 mmol/L (3.4-5.1); Sodium 136 mmol/L (137-145); Total Protein 7.4 g/dL (6.3-8.2)
--- NOTE | 2024-05-04 15:27 | EKG_ITS ---
[facility] [address] [place] [address] Test Date: 2024-05-04 Pat Name: Tenisha Mejia Department: [facility] Room: Gender: Female Transitional Living Specialist: DIOGO : 1940 Requested By: Order Number: [id number] Reading MD: Gage Watts Measurements Intervals [place] Rate: 89 P: -17 VA: 192 QRS: -24 QRSD: 78 T: -7 QT: 392 QTc: 476 Interpretive Statements Sinus rhythm with frequent and consecutive premature ventricular complexes and premature atrial complexes Minimal voltage criteria for LVH, may be normal variant ( R in aVL ) Possible Anterior infarct , age undetermined Electronically Signed On 05-06-2024 15:49:21 PDT by Gage Watts
[2024-05-04 16:56] LABS: Appearance Urine UA SL CLOUDY; Bilirubin Urine UA NEGATIVE (NEGATIVE); Color Urine UA YELLOW; Glucose Urine UA NEGATIVE (Negative); Ketones Urine UA NEGATIVE (NEGATIVE); Leukocyte Esterase Urine UA 2+ (NEGATIVE); Nitrite Urine UA NEGATIVE (Negative); Occult Blood Urine UA 3+ (Negative); Protein Urine UA NEGATIVE (Negative); Specific Gravity Urine UA <=1.005 (1.000-1.035); Urobilinogen Urine UA 0.2 E.U./dL (0.2)
[2024-05-04 16:57] LABS: Urine Volume 10mL (spun)
[2024-05-04 17:02] LABS: Bacteria Urine None Seen; RBC Urine 5-10/HPF (0-5/HPF); Squamous Epithelial Cell Urine None Seen (0-5/HPF); WBC Urine 5-10/HPF (0-5/HPF)
[2024-05-04 17:03] LABS: Culture Indicated Urine Specimen Cultured
--- NOTE | 2024-05-04 17:07 | ED.ABDPAIN ---
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 She presents today with constipation. She has some mild abdominal discomfort and pain she is tried to have a bowel movement but unsuccessful multiple times. They have tried [id number] medications such as enema and others, overall unsuccessful. She has no chest pain no fever or chills. Related Data Home Medications Medication Instructions Recorded Confirmed levothyroxine 100 mcg tablet 1 tab PO MOWEFR 01/10/18 05/01/24 levothyroxine 88 mcg tablet 1 tab PO SUTUTHSA 01/10/18 05/01/24 venlafaxine 37.5 mg 1 cap PO QPM 01/10/18 05/01/24 capsule,extended release 24 hr omeprazole 20 mg capsule,delayed 200 mg PO DAILY 03/04/22 05/01/24 release losartan 100 mg tablet 50 mg PO DAILY 02/24/23 05/01/24 vits no.126-ferrous fum tab PO 05/01/24 05/01/24 28 mg iron-folic acid 800 mcg tablet (Classic ) Previous Rx's Medication Instructions Recorded albuterol sulfate 90 mcg/actuation 2 puff inhalation Q6H PRN 03/01/23 aerosol inhaler shortness of breath or wheezing #6.7 grams vibegron 75 mg tablet (Gemtesa) 75 mg PO DAILY #90 tabs 09/12/23 lidocaine 5 % topical gel 1 ea topical BID PRN pain #10 grams 04/05/24 pramoxine 1 % topical foam 1 applic CA TID #15 grams 04/05/24 (Proctofoam) lactulose 20 gram/30 mL oral 20 g (30 mL) PO BID PRN 05/04/24 solution constipation #1,200 mL metronidazole 500 mg tablet 500 mg PO Q8H 7 days #21 tabs 05/04/24 sulfamethoxazole 800 1 tab PO BID 7 days #14 tabs 05/04/24 mg-trimethoprim 160 mg tablet (Bactrim DS) Allergies Allergy/AdvReac Type Severity Reaction Status Date / Time Penicillins [PENICILLINS] Allergy Severe LESIONS IN Verified 05/01/24 14:35 HER MOUTH ciprofloxacin [CIPROFLOXACIN] Allergy Intermediate tongue Verified 05/01/24 14:35 inflammation Patient History Medical History Incontinence of urine Incontinence Hx of cancer antigen 125 (CA-125) measurement Cancer Pulmonary nodules CVA (cerebral vascular accident) Stroke Surgical History Hx of breast biopsy History of hip replacement Family History Father Hypertension Heart disease Mother Breast cancer Social History marital status: household members: spouse lives independently: Yes occupational status: previously employed Smoking Status: Never smoker alcohol intake: current substance use type: does not use and unknown Smoking Status: Never smoker alcohol intake frequency: a few times a month Substance Use Type: does not use Exam Initial Vital Signs Initial Vital Signs: Vital Signs Temperature 97.1 F L 05/04/24 14:36 Pulse Rate 77 05/04/24 14:36 Respiratory Rate 16 05/04/24 14:36 Blood Pressure 138/77 05/04/24 14:36 Pulse Oximetry 94 05/04/24 14:36 Oxygen Delivery Method Room Air 05/04/24 14:36 GENERAL: Alert pleasant elderly 84-year-old female and in no acute distress. HEENT: Head atraumatic,EOMI, pupils reactive, face symmetric, moist mucous membranes CARDIOVASCULAR: Regular rate and rhythm without murmurs, rubs or gallops. RESPIRATORY: Breath sounds equal bilaterally, no wheezes rales or rhonchi. ABDOMEN: Soft, mild lower abdominal tenderness no guarding no rebound, ventral hernia present and tender to palpation RECTAL: Large external hemorrhoids. states that those have been there for awhile, not new : Indwelling Izaguirre catheter EXTREMITIES: Normal range of motion, no clubbing or edema. Neurovascularly intact NEUROLOGICAL: Alert and oriented x4 SKIN: Warm, dry, no laceration, no petechiae, no rashes or lesions. Course Orders Ordered: Discontinued Medications Lidocaine HCl (Lidocaine 2% (Glydo) 6 Ml Gel) 6 ml TOP NOW ONE Stop: 05/04/24 18:49 Last Admin: 05/04/24 18:52 Dose: 6 ml Documented By: ALEXA Mineral Oil (Mineral Oil 1 Each Enema) 1 each CA NOW ONE Stop: 05/04/24 17:14 Last Admin: 05/04/24 17:38 Dose: 1 each Documented By: MARIO Ondansetron HCl (Ondansetron 4 Mg/2 Ml Inj) 4 mg IV NOW PRN PRN Reason: Nausea And Vomiting Ondansetron HCl (Ondansetron 4 Mg Odt) 4 mg PO NOW PRN PRN Reason: Nausea And Vomiting Vital Signs Vital signs: Vital Signs - 8 hr 05/04/24 14:36 05/04/24 14:52 05/04/24 15:00 Temperature 97.1 F L Pulse Rate 77 97 H Respiratory Rate 16 20 Blood Pressure 138/77 156/81 H Pulse Oximetry 94 93 Oxygen Delivery Method Room Air 05/04/24 15:30 05/04/24 15:30 05/04/24 16:00 Temperature Pulse Rate 91 H Respiratory Rate 24 Blood Pressure 145/92 H 134/87 Pulse Oximetry 92 Oxygen Delivery Method 05/04/24 16:00 05/04/24 16:30 05/04/24 16:30 Temperature Pulse Rate 88 105 H Respiratory Rate 24 20 Blood Pressure 197/98 H Pulse Oximetry 93 94 Oxygen Delivery Method 05/04/24 17:00 05/04/24 17:01 05/04/24 17:33 Temperature Pulse Rate 100 H 103 H Respiratory Rate 22 24 Blood Pressure 169/79 H Pulse Oximetry 94 93 Oxygen Delivery Method MDM - Abdominal Pain Lab Data 05/04/24 15:00 05/04/24 15:00 Labs: Lab Results 05/04/24 05/04/24 Range/Units 15:00 16:15 WBC 11.6 H (4.5-11.0) X10^3/uL RBC 3.72 L (4.0-5.2) X10^6/uL Hgb 11.3 L (12.0-16.0) g/dL Hct 33.8 L (36-46) % MCV 90.9 (80-100) fL MCH 30.4 (26-34) PG MCHC 33.4 (30-36) % RDW 17.8 H (11.6-14.8) % Plt Count 548 H (150-400) X10^3/uL Neut % (Auto) 81.5 H (50-75) % Lymph % (Auto) 11.8 L (25-40) % [place] % (Auto) 5.1 (3-14) % Eos % (Auto) 1.0 L (2-4) % Baso % (Auto) 0.6 (0-2) % Neut # (Auto) 9400 H (0331-2959) /uL Lymph # (Auto) 1400 (5221-9753) /uL [place] # (Auto) 600 (0-900) /uL Eos # (Auto) 100 (0-450) /uL Baso # (Auto) 100 (0-100) /uL PT 12.6 H (9.4-12.5) SECONDS INR 1.1 (0.9-1.3) Sodium 136 L (137-145) mmol/L Potassium 3.9 (3.4-5.1) mmol/L Chloride 102 (98-107) mmol/L Carbon Dioxide 26 (22-32) mmol/L BUN 12 (7-17) mg/dL Creatinine 0.71 (0.52-1.04) mg/dL Estimated GFR > 60 (>60) mL/min BUN/Creatinine Ratio 16.9 (6-22) Glucose 101 (80-110) mg/dL Calcium 8.9 (8.4-10.2) mg/dL Total Bilirubin 0.6 (0.2-1.3) mg/dL AST 27 (14-36) IU/L ALT 19 (<35) IU/L Alkaline Phosphatase 99 (38-126) U/L Total Protein 7.4 (6.3-8.2) g/dL Albumin 4.0 (3.5-5.0) g/dL Globulin 3.4 (1.7-4.1) g/dL Albumin/Globulin Ratio 1.2 (1.0-2.8) Lipase 78 (23-300) U/L Urine Color Yellow Urine Appearance Sl cloudy Urine pH 7.0 (4.5-8.0) Ur Specific [place] <=1.005 (1.000-1.035) Urine Protein Negative (Negative) Urine Glucose (UA) Negative (Negative) g/dL Urine Ketones Negative (NEGATIVE) Urine Occult Blood 3+ H (Negative) Urine Nitrate Negative (Negative) Urine Bilirubin Negative (NEGATIVE) Urine Urobilinogen 0.2 (0.2) E.U./dL Ur Leukocyte Esterase 2+ H (NEGATIVE) Urine RBC 5-10/hpf H (0-5/HPF) Urine WBC 5-10/hpf H (0-5/HPF) Ur Squamous Epith Cells None seen (0-5/HPF) Urine Bacteria None seen (None) Ur Culture Indicated? Specimen cultured Vol Urine Centrifuged 10ml (spun) Point of care testing: Urine Dip Bedside Urine Glucose Negative Bedside Urine Bilirubin - Negative Bedside Urine Ketone - Negative Urine Specific [place] 1.005 Bedside Urine Occult Blood +++ Bedside Urine pH 6.5 Bedside Urine Protein - Negative Bedside Urine Urobilinogen - Negative Bedside Urine Nitrite - Negative Bedside Urine Leukocytes +++ [address] scan - abdomen/pelvis: Radiologist's Impression: PROCEDURE: CT ABDOMEN PELVIS W CON INDICATIONS: pain constipation TECHNIQUE: After the administration of intravenous contrast, axial sections acquired from the lung bases to the pubic symphysis. Coronal and sagittal reformats were performed. For radiation dose reduction, the following was used: automated exposure control, adjustment of mA and/or kV according to patient size. COMPARISON: [facility], CT, CT ABDOMEN PELVIS W CON, 03/03/2022, 21:01. FINDINGS: Lower thorax: The lung bases are clear. Heart size normal. Moderate hiatal hernia noted. Liver: Normal in size and attenuation. No contour deformity present. Biliary system: No calcified cholelithiasis or pericholecystic inflammation. No intra or extrahepatic bile duct dilatation. Pancreas: Unremarkable without mass or inflammation evident. Spleen: Normal in size and density. Adrenals: Normal morphology and density. Reproductive system: Unremarkable as visualized. Urinary system: Normal renal size and attenuation. Bilateral renal cysts present No renal calculi, hydronephrosis, or solid mass present. Izaguirre catheter in the bladder Gastrointestinal system: Moderate fecal debris throughout the colon. Advanced diverticulosis noted in the sigmoid. Mild pericolonic inflammatory change noted in the distal sigmoid. No abscess or free air Appendix: No findings to suggest acute appendicitis. Peritoneal spaces: No mesenteric or retroperitoneal adenopathy. No free air. No free fluid. Vasculature: Aortic atherosclerotic vascular calcification noted without evidence of aneurysm.6 Abdominal wall: Large ventral hernia contains a loop transverse colon. Bilateral hip prosthesis limits assessment of multiple images in the pelvis. Musculoskeletal: Normal bone mineralization. No acute fractures. IMPRESSION: Advanced sigmoid diverticulosis. Suggestion of pericolonic inflammatory change noted in the distal sigmoid reflect mild diverticulitis. Large amount of fecal debris throughout the colon. Ventral hernia contains a loop of transverse colon without evidence of obstruction. Additional chronic findings as above Approved by: Joaquim Navarro M.D. on 05/04/2024 at 17:29 ECG Data Interpretation: Normal sinus rhythm rate 89 CA interval 192 QRS 70 QTC 476 T-wave inversion noted in lead 3 similar to prior EKGs PVCs noted no ischemia MDM Narrative Medical decision making narrative: MDM CC: Abdominal pain constipation Complicating co-morbidities: Increasing weakness indwelling Izaguirre catheter, prior strokes Data collected from: Medical records reviewed: Prior ED visit 04/05/2024 Differential considered: Bowel obstruction diverticular colitis nephrolithiasis sigmoid wall really less appendicitis Exam documented above, pertinent findings include: Patient mildly tender on exam no significant distention no guarding ventral hernia present due to touch Lab Test results independently reviewed as above. Pertinent findings: CBC WBC is 11.6 hemoglobin 11.3 hematocrit 33.8, platelets 548 BMP, sodium 136 potassium 3.9 chloride 102 carbon dioxide Bilirubin 0.6 AST 27 ALT 19 alk-phos 99, lipase 70 Independently reviewed EKG as above no ischemia persistent T-wave inversion in lead 3 Imaging studies independently reviewed: CT shows large stool burden possible mild diverticulitis Treatments: Enema Re-evaluations: No success with bowel movement. Attempted manual disimpaction without success Discussion: 84-year-old female presenting today with rectal discomfort and constipation. She is mildly tender on exam with a obvious ventral hernia. CT does show constipation large stool burden possibly some mild diverticulitis but no other significant abnormality. Blood work is overall reassuring she is some mild leukocytosis of 11. Urinalysis is mildly cloudy catheter was changed recently within few days. Complains of constipation attempted manual disimpaction which was unsuccessful. She had no bowel movement with an enema. We will give her lactulose. Will also treat for some mild diverticulitis. She is allergic to many medications giving her Bactrim and Flagyl. Discharge Plan Departure Patient Disposition: Home Clinical Impression: Constipation, Diverticulitis Instructions: DI for Diverticulitis, DI for Constipation Activity Restrictions/Additional Instructions: *You have been diagnosed with constipation and mild diverticulitis *What to do: I am sorry your constipated this gets better for you soon *Continue to take medications as directed Lactulose twice a day as needed for constipation Bactrim 1 tablet twice a day for 7 days--this medication can interact with losartan. I would try and hold losartan while taking this antibiotic Flagyl 500 mg 3 times a day for 7 days *Follow up with your primary care provider in 2-3 days or call [phone] *Return to ER if you should have increasing abdominal pain nausea vomiting fever [or] any new, worsening or concerning symptoms Prescriptions: New metronidazole 500 mg tablet 500 mg PO Q8H 7 Days Qty: 21 0RF sulfamethoxazole-trimethoprim [Bactrim DS] 800-160 mg tablet 1 tab PO BID 7 Days Qty: 14 0RF lactulose 20 gram/30 mL solution 20 g PO BID PRN (Reason: constipation) Qty: 1200 0RF No Action albuterol sulfate 90 mcg/actuation HFA aerosol inhaler 2 puff inhalation Q6H PRN (Reason: shortness of breath or wheezing) Qty: 6.7 5RF levothyroxine 88 mcg tablet 1 tab PO SUTUTHSA levothyroxine 100 mcg tablet 1 tab PO MOWEFR venlafaxine 37.5 mg capsule,extended release 24hr 1 cap PO QPM losartan 100 mg tablet 50 mg PO DAILY Patient Comments: TK 1 T PO QD omeprazole 20 mg capsule,delayed release(DR/EC) 200 mg PO DAILY Patient Comments: TAKE 1 CAPSULE BY MOUTH EVERY DAY 30 MINUTES BEFORE BREAKFAST pramoxine [Proctofoam] 1 % foam 1 applic CA TID Qty: 15 2RF lidocaine 5 % gel 1 ea topical BID PRN (Reason: pain) Qty: 10 0RF Gemtesa 75 mg tablet 75 mg PO DAILY Qty: 90 3RF Classic 28 mg iron- 800 mcg tablet PO Referrals: Floresita King PA-C [Primary Care Provider] - Stand Alone Forms: Patient Portal/API
--- NOTE | 2024-05-04 17:13 | DI.CT.S_ITS ---
PROCEDURE: CT ABDOMEN PELVIS W CON INDICATIONS: pain constipation TECHNIQUE: After the administration of intravenous contrast, axial sections acquired from the lung bases to the pubic symphysis. Coronal and sagittal reformats were performed. For radiation dose reduction, the following was used: automated exposure control, adjustment of mA and/or kV according to patient size. COMPARISON: [facility], CT, CT ABDOMEN PELVIS W CON, 03/03/2022, 21:01. FINDINGS: Lower thorax: The lung bases are clear. Heart size normal. Moderate hiatal hernia noted. Liver: Normal in size and attenuation. No contour deformity present. Biliary system: No calcified cholelithiasis or pericholecystic inflammation. No intra or extrahepatic bile duct dilatation. Pancreas: Unremarkable without mass or inflammation evident. Spleen: Normal in size and density. Adrenals: Normal morphology and density. Reproductive system: Unremarkable as visualized. Urinary system: Normal renal size and attenuation. Bilateral renal cysts present No renal calculi, hydronephrosis, or solid mass present. Izaguirre catheter in the bladder Gastrointestinal system: Moderate fecal debris throughout the colon. Advanced diverticulosis noted in the sigmoid. Mild pericolonic inflammatory change noted in the distal sigmoid. No abscess or free air Appendix: No findings to suggest acute appendicitis. Peritoneal spaces: No mesenteric or retroperitoneal adenopathy. No free air. No free fluid. Vasculature: Aortic atherosclerotic vascular calcification noted without evidence of aneurysm.6 Abdominal wall: Large ventral hernia contains a loop transverse colon. Bilateral hip prosthesis limits assessment of multiple images in the pelvis. Musculoskeletal: Normal bone mineralization. No acute fractures. IMPRESSION: Advanced sigmoid diverticulosis. Suggestion of pericolonic inflammatory change noted in the distal sigmoid reflect mild diverticulitis. Large amount of fecal debris throughout the colon. Ventral hernia contains a loop of transverse colon without evidence of obstruction. Additional chronic findings as above Approved by: Joaquim Navarro M.D. on 05/04/2024 at 17:29
[2024-05-04] MEDS: MINERAL OIL 1 EACH ENEMA PR (17:38)
--- NOTE | 2024-05-04 18:27 | PC.NURSE ---
Mineral Oil enema given and patient up to BSC with max assist x2, minimal amount of stool, still reports constipation and abdominal pain. Blood on toilet paper with wiping due to hx of hemmorrhoids.
[2024-05-04] MEDS: LIDOCAINE 2% (GLYDO) 6 ML GEL TOP (18:52)
== END 2024-05-04 19:17 | disposition home or self-care (01) ==
PROVIDERS: Emergency Provider Emergency Medicine; Family Provider Physician Assistant; PCP Physician Assistant
DX: K59.00 Constipation, unspecified (principal); K57.92 Diverticulitis of intestine, part unspecified, without perforation or abscess without bleeding; R10.9 Unspecified abdominal pain
CPT/HCPCS: 36415; 74177; 80053; 81001; 81003; 83690; 85025; 85610; 87077; 87086; 93005; 99283; 99284; Q9967

== ENCOUNTER → 2024-07-19 12:08 | Outpatient (CLI) | payer MEDICARE, OTHER, SELFPAY ==
[2024-07-19 12:28] LABS: Appearance Urine UA SL CLOUDY; Bilirubin Urine UA NEGATIVE (NEGATIVE); Color Urine UA YELLOW; Glucose Urine UA NEGATIVE (Negative); Ketones Urine UA NEGATIVE (NEGATIVE); Leukocyte Esterase Urine UA 1+ (NEGATIVE); Nitrite Urine UA NEGATIVE (Negative); Occult Blood Urine UA NEGATIVE (Negative); Protein Urine UA NEGATIVE (Negative); Urobilinogen Urine UA 0.2 E.U./dL (0.2)
[2024-07-19 12:39] LABS: Bacteria Urine None Seen; Culture Indicated Urine Specimen Cultured; RBC Urine None Seen (0-5/HPF); Squamous Epithelial Cell Urine None Seen (0-5/HPF); Urine Volume 10mL (spun); WBC Urine 5-10/HPF (0-5/HPF)
== END ==
LOC: LAB 12:10
PROVIDERS: Family Provider Physician Assistant; PCP Physician Assistant; Referring Provider Physician Assistant; Visit Provider Physician Assistant
DX: R39.89 Other symptoms and signs involving the genitourinary system (principal)
CPT/HCPCS: 81001; 87077; 87086; 87186

== ENCOUNTER 2024-09-30 14:30 | Outpatient (RCR) | payer MEDICARE, OTHER, SELFPAY ==
--- NOTE | 2024-09-02 16:51 | PT.OIE ---
Current Diagnoses Stiffness of unspecified hip, not elsewhere classified (09/02/24) Muscle weakness (generalized) (09/02/24) Overactive bladder (09/02/24) Abnormal posture (09/02/24) Unspecified urinary incontinence (09/02/24) Past Medical History (Last Reviewed 07/23/24 @ 14:39 by Ignacio Mccoy DO) Cancer CVA (cerebral vascular accident) Hx of cancer antigen 125 (CA-125) measurement Incontinence Incontinence of urine Pulmonary nodules Stroke Past Surgical History (Last Reviewed 07/23/24 @ 14:39 by Ignacio Mccoy DO) History of hip replacement Hx of breast biopsy Visit Care Team Role Provider Type Floresita King PA-C Family Provider Advanced Historiographer Primary Care Provider Specialty: Medical Address: [address] [place] [address], [id number] Email: Ignacio Mccoy DO Attending Provider Physician Referring Provider Specialty: Urology Address: [address] [place] [address], [id number] Fax: Email: Physical Therapy Initial Evaluation PT-OP-A Visit Information Start: 08/27/24 18:52 Freq: Status: Active Protocol: Document 09/02/24 16:03 LRN (Rec: 09/02/24 17:55 LRN [id number]) Out-Patient Physical Therapy Visit Information Visit Information Visit Type Initial Evaluation Visit Note Spouse/Caregiver present throughout evaluation. Visit Start Time 16:03 Visit Stop Time 17:16 Visit Number 1 Evaluation Information Evaluation Date 09/02/24 Precautions Precautions 5 strokes w/most recent 2018; carl YARELI - 2003, [address] [facility]; Shingles for 2yrs, External anal hemorrhoid for 2 yrs, breast cancer. PT-OP-B Current Condition Start: 08/27/24 18:52 Freq: Status: Active Protocol: Document 09/02/24 16:03 LRN (Rec: 09/02/24 17:55 LRN [id number]) Current Condition History of Current Condition Onset Date 2 yrs ago, recent referral 6 months ago. Current Complaints Urinary leakage & increased frequ of urinating, UTI's. History of Current Condition Spouse/pt states she was sent for PT due to 6 months ago, pt needing to urinate frequently , so had catheter put in, then 3 days later she had a lot of (abdominal) pain and catheter was removed. She had a prior history (2 yrs ago) of catheter placement without problems when inserted by some at [facility]. An internal catheter was tried a second time by [facility] nurse, but she had the same problem of abdominal pain . Now uses a Purewick Catheter at nighttime for past 3-4 months, and during the day the spouse takes her to the bathroom all the time; therefore she is referred to PT for exercises. Pt/spouse wants to be able to try a smaller catheter. She has had 2 UTI's and recently tested positive for another UTI. She c/o a sore buttock because of all her sitting, but denies having an ulcer, stating she is very itchy. She is using at home ointments and salves with the best pain reliever being Aspercreme. Prior Treatments and Tests None Developmental History Developmental History 4 children of vaginal births. No complications. Treatment Goals Patient/Caregiver Goals Pt goals: - be able to transfer without leaking, (now ~2-3x/day). - be able to decrease times leaking trying to get to the toilet, (now, ~2x/day). - reduce the times needed to void during the day, (now, every 2 hrs). - pt agreeable to being consistent on a HEP. Personal Factors Other Personal Factors That May Effect Lives 4 blks away in 2 story Therapy/Recovery house in [place], but lives on bottom level. 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 Shingles for 2 ys left her inactive & weak. Sits all day. Can walk with 4WW walker and handbrakes (50' ) with spouse mod>max assist. Abdominal hernia and severe hemorrhoids. Hx of Breast CA. PT-OP-C Subjective Start: 08/27/24 18:52 Freq: Status: Active Protocol: Document 09/02/24 16:03 LRN (Rec: 09/02/24 17:55 LRN [id number]) Patient Questionnaires Pelvic Pain and Urgency/Frequency Patient Symptom Scale Pelvic Pain Score 9 PT-OP-I Pelvic Floor Start: 08/27/24 18:52 Freq: Status: Active Protocol: Document 09/02/24 16:03 LRN (Rec: 09/02/24 17:55 LRN [id number]) Pelvic Floor Assessment Urine Leakage Size Large Leakage Cause Cough,Urge Other Leakage Causes Movement, Leaks Per Day 2-3 Voiding Frequency every 2 hrs Nocturia None with Purewick, prior 2-3x /night Pads Used In 24 Hours Cloth ones 5x/day with Pose #6 pad, nighttime 1x. Urine Pad Type Depends Bowel Bowel Movement Frequency 1-2/day [place] Stool Chart Comments 4-6. Takes psylium husk and a stool softener, daily Pelvic Clock Pelvic Clock 12-3 Tenderness Pelvic Clock 3-6 Tenderness Pelvic Clock 6-9 Tenderness,Tightness Pelvic Clock 9-12 Tenderness,Tightness Pelvic Clock Other Tenderness of superficial PF ms. Tender 12-6 of PF clock. Inter-Rectal Assessment Visible hemorrhoidm ? rectocele. Perineal Descent Resting Absent Bearing Absent Contraction Ability Manual Muscle Testing Left 0 Manual Muscle Testing Right 2 Manual Muscle Testing Anterior 0 Manual Muscle Testing Posterior 1 Comments Pelvic Floor Comments CONSENT: Pt consented to PF external and internal exam. PT-OP-J Posture/Palpation/Skin Start: 08/27/24 18:52 Freq: Status: Active Protocol: Document 09/02/24 16:03 LRN (Rec: 09/02/24 17:55 LRN [id number]) Posture Evaluation Comments Posture Comments Sitting in Wheelchair posture: Sits leaning to left, curvature of spine. PT-OP-K Range of Motion Start: 08/27/24 18:52 Freq: Status: Active Protocol: Document 09/02/24 16:03 LRN (Rec: 09/02/24 17:55 LRN [id number]) Hip Goniometric Range of Motion Hip Right Passive Testing Position Supine Abduction 11 Internal Rotation 40 External Rotation 15 Comments lacks 13 deg's ext Left Passive Testing Position Supine Abduction 3 Internal Rotation 10 External Rotation 30 Comments lacks 13 deg's ext PT-OP-M Strength Start: 08/27/24 18:52 Freq: Status: Active Protocol: Document 09/02/24 16:03 LRN (Rec: 09/02/24 17:55 LRN [id number]) Hip Strength Hip Manual Muscle Testing Right External Rotation 3 Fair Internal Rotation 5 Normal Left External Rotation 3 Fair Internal Rotation 5 Normal PT-OP-Q Treatments Start: 08/27/24 18:52 Freq: Status: Active Protocol: Document 09/02/24 16:03 LRN (Rec: 09/02/24 17:55 LRN [id number]) Self-Care/Home Management Treatment Education Other Education Discussed results of evaluation, goals, treatment, and plan of care (POC) with pt /spouse, attendance/cx/dns policy; pt agreeable to evaluation, goals, treatment, and POC. Discussed and educated pt in specifics for completion of in use of Bladder Diary and I/S in tracking for 1 week. Activities Self-Care/Home Management Activities Issued & reviewed HEP: Kegel ex's and discussed exercise of Quick Flicks, Long Holds and Aggravators. PT-OP-T Assessment and Plan Start: 08/27/24 18:52 Freq: Status: Active Protocol: Document 09/02/24 16:03 LRN (Rec: 09/02/24 17:55 LRN [id number]) Physical Therapy Assessment Rehab Potential Rehabilitation Potential Fair Evaluation Complexity Number of Personal Factors/Comorbidities 3 or More Number of Body Systems Impaired 4 or More Clinical Presentation at Evaluation Evolving Impairments Impairments Activity Tolerance,Posture,ROM ,Strength,Transfers Other Impairments Mixed urinary incontinence. Goals Three Impairment Urinary leakage getting to toilet and transferring onto toilet. Short Term Goal (STG) Pt will be educated and use the urge deference technique to be able to help reduce urinary leakage trying to get to bathroom (now ~2-3x/day). STG Duration 09/20/24 Custodial Goal (LTG) Pt will be to use the urge deference technique to reduce urinary leakage with transfers onto toilet (now ~2-3x/day). LTG Duration 10/03/24 Two Impairment Increased urinary frequency ( every 2 hrs). Short Term Goal (STG) Pt will be put on a toileting schedule to help reduce urinary leakage trying to get to bathroom (now ~2-3x/day). STG Duration 09/20/24 Custodial Goal (LTG) Pt will use the urge deference technique for bladder retraining to be able to reduce the times needed to void during the day, (now, every 2 hrs). LTG Duration 10/03/24 One Impairment Pt lacks an independent self care HEP. Short Term Goal (STG) Pt will be educated how to lessen core abdominal pressure and will be able to learn how to breath during transfers. STG Duration 09/20/24 Custodial Goal (LTG) Pt will be independent in a self care HEP for PF strengthening ex's to demonstrate improved L lateral wall, anterior & posterior PF strength 2/5 for symmetry with R lateral wall strength of 2/5. HEP: Kegel ex's and discussed exercise of Quick Flicks, Long Holds and Aggravators. LTG Duration 10/03/24 progressed 09/02/24 Assessment Summary Assessment Pt is an 84 yo female who presents with mixed urinary incontinece with added hinderance resulting from comorbidities of s/p 5 strokes (L sided PF lateral wall weakness of 0/5), carl YARELI, abdominal hernia, and hx of PF pain from catheter use. The pt has multiple areas of dysfunction besides PF weakness of postural dysfunction, lack of core stability, inability to sit independently safely, limited hip mobility due to YARELI bilaterally, mostly wheelchair bound. The pt will benefit from skilled physical therapy to work towards achieving the above stated goals, although prognosis is somewhat poor as her strokes have reportedly affected her L side and she tested no PF strength in the L lateral wall and anteriorly. Physical Therapy Plan Frequency and Duration Frequency of Treatment 1x/Week Duration of treatment (weeks) 5 Plan of Care Start Date 09/02/24 Plan of Care End Date 10/03/24 Therapeutic Interventions Therapeutic Interventions Home Exercise Program,Manual Therapy,Neuromuscular Re- education,Self-Care/Home Management,Soft Tissue Mobilization,Therapeutic Activities,Therapeutic Exercises Modalities Cold Pack/Ice Massage,Hot Packs Next Visit Focus/Plan Next Note Type Treatment Note Next Visit Plan Next: Review bladder/bowel diary, pt education in bladder retraining with urge deference technique, core pressure management, and proper coordinated breathing with transfers. Ther Ex: PF (L lateral wall, anterior & posterior)/core bracing with hip strengthening , improve hip rotational/AB/AD strength. POC: Pt education, Manual therapy, Therapeutic Exercises , Therapeutic Activities, Neuromuscular Reeducation.
--- NOTE | 2024-09-09 16:21 | PT-OP ANOTE ---
Per phone conversation the pt's spouse/caregiver reports he wasn't aware of the appt today. He was notified he could call in at 8a on and to see if there are openings for her come into therapy this week and for M/T of next week, otherwise he states he is aware of her next appt on 09/30/24.
--- NOTE | 2024-09-17 17:46 | PT.OTN ---
Current Diagnoses Stiffness of unspecified hip, not elsewhere classified (09/17/24) Muscle weakness (generalized) (09/17/24) Overactive bladder (09/17/24) Abnormal posture (09/17/24) Unspecified urinary incontinence (09/17/24) Physical Therapy Treatment Note PT-OP-A Visit Information Start: 08/27/24 18:52 Freq: Status: Active Protocol: Document 09/17/24 13:05 LRN (Rec: 09/17/24 15:16 LRN [id number]) Out-Patient Physical Therapy Visit Information Visit Information Visit Type Treatment Note Visit Note Caregiver having YARELI in 4 wks. Spouse/Caregiver present throughout treatment Visit Start Time 13:04 Visit Stop Time 13:46 Visit Number 2 Evaluation Information Evaluation Date 09/02/24 Precautions Precautions 5 strokes w/most recent 2019; carl YARELI - 2003, 2004 @ [facility]; Shingles for 2yrs, External anal hemorrhoid for 2 yrs, breast cancer. PT-OP-B Current Condition Start: 08/27/24 18:52 Freq: Status: Active Protocol: Document 09/02/24 16:03 LRN (Rec: 09/02/24 17:55 LRN [id number]) Current Condition History of Current Condition Onset Date 2 yrs ago, recent referral 6 months ago. Current Complaints Urinary leakage & increased frequ of urinating, UTI's. History of Current Condition Spouse/pt states she was sent for PT due to 6 months ago, pt needing to urinate frequently , so had catheter put in, then 3 days later she had a lot of (abdominal) pain and catheter was removed. She had a prior history (2 yrs ago) of catheter placement without problems when inserted by some at [facility]. An internal catheter was tried a second time by [facility] nurse, but she had the same problem of abdominal pain . Now uses a Purewick Catheter at nighttime for past 3-4 months, and during the day the spouse takes her to the bathroom all the time; therefore she is referred to PT for exercises. Pt/spouse wants to be able to try a smaller catheter. She has had 2 UTI's and recently tested positive for another UTI. She c/o a sore buttock because of all her sitting, but denies having an ulcer, stating she is very itchy. She is using at home ointments and salves with the best pain reliever being Aspercreme. Prior Treatments and Tests None Developmental History Developmental History 4 children of vaginal births. No complications. Treatment Goals Patient/Caregiver Goals Pt goals: - be able to transfer without leaking, (now ~2-3x/day). - be able to decrease times leaking trying to get to the toilet, (now, ~2x/day). - reduce the times needed to void during the day, (now, every 2 hrs). - pt agreeable to being consistent on a HEP. Personal Factors Other Personal Factors That May Effect Lives 4 blks away in 2 story Therapy/Recovery house in [place], but lives on bottom level. 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 Shingles for 2 ys left her inactive & weak. Sits all day. Can walk with 4WW walker and handbrakes (50' ) with spouse mod>max assist. Abdominal hernia and severe hemorrhoids. Hx of Breast CA. PT-OP-C Subjective Start: 08/27/24 18:52 Freq: Status: Active Protocol: Document 09/17/24 13:05 LRN (Rec: 09/17/24 15:16 LRN [id number]) OP-PT Subjective Patient Comments Patient Comments States no changes. Urinating mostly every 2 hrs, depending on how much drinking. States she has an urge and can tell when she leaks. Spouse states when he stands her up she leaks. PT-OP-I Pelvic Floor Start: 08/27/24 18:52 Freq: Status: Active Protocol: Document 09/02/24 16:03 LRN (Rec: 09/02/24 17:55 LRN [id number]) Pelvic Floor Assessment Urine Leakage Size Large Leakage Cause Cough,Urge Other Leakage Causes Movement, Leaks Per Day 2-3 Voiding Frequency every 2 hrs Nocturia None with Purewick, prior 2-3x /night Pads Used In 24 Hours Cloth ones 5x/day with Pose #6 pad, nighttime 1x. Urine Pad Type Depends Bowel Bowel Movement Frequency 1-2/day [place] Stool Chart Comments 4-6. Takes psylium husk and a stool softener, daily Pelvic Clock Pelvic Clock 12-3 Tenderness Pelvic Clock 3-6 Tenderness Pelvic Clock 6-9 Tenderness,Tightness Pelvic Clock 9-12 Tenderness,Tightness Pelvic Clock Other Tenderness of superficial PF ms. Tender 12-6 of PF clock. Inter-Rectal Assessment Visible hemorrhoidm ? rectocele. Perineal Descent Resting Absent Bearing Absent Contraction Ability Manual Muscle Testing Left 0 Manual Muscle Testing Right 2 Manual Muscle Testing Anterior 0 Manual Muscle Testing Posterior 1 Comments Pelvic Floor Comments CONSENT: Pt consented to PF external and internal exam. PT-OP-J Posture/Palpation/Skin Start: 08/27/24 18:52 Freq: Status: Active Protocol: Document 09/02/24 16:03 LRN (Rec: 09/02/24 17:55 LRN [id number]) Posture Evaluation Comments Posture Comments Sitting in Wheelchair posture: Sits leaning to left, curvature of spine. PT-OP-K Range of Motion Start: 08/27/24 18:52 Freq: Status: Active Protocol: Document 09/02/24 16:03 LRN (Rec: 09/02/24 17:55 LRN [id number]) Hip Goniometric Range of Motion Hip Right Passive Testing Position Supine Abduction 11 Internal Rotation 40 External Rotation 15 Comments lacks 13 deg's ext Left Passive Testing Position Supine Abduction 3 Internal Rotation 10 External Rotation 30 Comments lacks 13 deg's ext PT-OP-M Strength Start: 08/27/24 18:52 Freq: Status: Active Protocol: Document 09/02/24 16:03 LRN (Rec: 09/02/24 17:55 LRN [id number]) Hip Strength Hip Manual Muscle Testing Right External Rotation 3 Fair Internal Rotation 5 Normal Left External Rotation 3 Fair Internal Rotation 5 Normal PT-OP-Q Treatments Start: 08/27/24 18:52 Freq: Status: Active Protocol: Document 09/17/24 13:05 LRN (Rec: 09/17/24 15:16 LRN [id number]) Therapeutic Exercises Supine Exercises Kegel Supine Exercise Name Quick and long hold kegels with back of hand on pt's perineum-phys feedback Reps/Minutes 1-2 SH/3 SR x 10, 10 SH x 10 Comments Extra time for trnsfering pt on/off plinth w/spouse choosing transfer metho Self-Care/Home Management Treatment Education Caregiver Education Pt lengthy education and discussion in Urinary urge technique with handout issued. Other Education Reviewed Bladder dairy and discussed fluid intake (AM/PM) , urinary voiding frequency, times between voids, types of intake of fluids. Discussed pt to do Kegel before standing, switch to decaf or herbal coffee and placement of pt on voiding schedule. Education, discussion, training of Urinary urge technique (during kegel ex's) of pt & spouse, with handout issued. Activities Self-Care/Home Management Activities Handout issued for Urge urinary deference. PT-OP-T Assessment and Plan Start: 08/27/24 18:52 Freq: Status: Active Protocol: Document 09/17/24 13:05 LRN (Rec: 09/17/24 15:16 LRN [id number]) Physical Therapy Assessment Goals Three Impairment Urinary leakage getting to toilet and transferring onto toilet. Short Term Goal (STG) Pt will be educated and use the urge deference technique to be able to help reduce urinary leakage trying to get to bathroom (now ~2-3x/day). 09/17/24: Pt educated in urge deference technique. STG Duration 09/20/24 progressed 09/17/24. Intermediate Goal (LTG) Pt will be to use the urge deference technique to reduce urinary leakage with transfers onto toilet (now ~2-3x/day). LTG Duration 10/03/24 Two Impairment Increased urinary frequency ( every 2 hrs). Short Term Goal (STG) Pt will be put on a toileting schedule to help reduce urinary leakage trying to get to bathroom (now ~2-3x/day). 09/17/24: Discussed and educated pt and caretgiver in starting the pt on toileting schedule of every 2 hrs. STG Duration 09/20/24 progressed 09/17/24 Intermediate Goal (LTG) Pt will use the urge deference technique for bladder retraining to be able to reduce the times needed to void during the day, (now, every 2 hrs). LTG Duration 10/03/24 One Impairment Pt lacks an independent self care HEP. Short Term Goal (STG) Pt will be educated how to lessen core abdominal pressure and will be able to learn how to breath during transfers. STG Duration 09/20/24 Intermediate Goal (LTG) Pt will be independent in a self care HEP for PF strengthening ex's to demonstrate improved L lateral wall, anterior & posterior PF strength 2/5 for symmetry with R lateral wall strength of 2/5. HEP: Kegel ex's and discussed exercise of Quick Flicks, Long Holds and Aggravators. LTG Duration 10/03/24 progressed 09/02/24 Assessment Summary Assessment 84 yo female with EDEL, PF weakness (L sided PF lateral wall weakness of 0/5), extensive hindering comorbidities (5 strokes, carl YARELI, abdominal hernia, hx of PF pain from catheter use); she has poor sitting posture and inability to safely sit unsupported independently, decr'd hip mobility, and mostly W/C bound although caregiver spouse states he makes the pt walk to bathroom daily. Today, pt admits she is not doing much exercising of her PF (kegels). Pt has verbally committed to doing her kegels at least 3x/day, but consistency of HEP participation is questionable. The pt takes extra time for education and clarification of understanding with ex's and training. Extra time is taken for pt transfers onto plinth for exercises. Physical Therapy Plan Frequency and Duration Frequency of Treatment 1x/Week Duration of treatment (weeks) 5 Plan of Care Start Date 09/02/24 Plan of Care End Date 10/03/24 Next Visit Focus/Plan Next Note Type Progress Note Next Visit Plan Next: Educate and practice core pressure management with transfers. Review bladder retraining with response to urge deference technique. PF (L lateral wall, anterior & posterior) strengthening. Ther Ex: core bracing with hip strengthening, improve hip rotational/AB/AD strength. POC: Pt education, Manual therapy, Therapeutic Exercises , Therapeutic Activities, Neuromuscular Reeducation.
--- NOTE | 2024-09-30 19:29 | PT.OTN ---
Current Diagnoses Stiffness of unspecified hip, not elsewhere classified (09/30/24) Muscle weakness (generalized) (09/30/24) Overactive bladder (09/30/24) Abnormal posture (09/30/24) Unspecified urinary incontinence (09/30/24) Physical Therapy Treatment Note PT-OP-A Visit Information Start: 08/27/24 18:52 Freq: Status: Active Protocol: Document 09/30/24 14:33 LRN (Rec: 09/30/24 15:20 LRN [id number]) Out-Patient Physical Therapy Visit Information Visit Information Visit Type Treatment Note Visit Note Caregiver YARELI 10/09/24. Visit Start Time 14:33 Visit Stop Time 15:20 Visit Number 3 Evaluation Information Evaluation Date 09/02/24 Precautions Precautions 5 strokes w/most recent 2019; carl YARELI - 2003, 2004 @ [facility]; Shingles for 2yrs, External anal hemorrhoid for 2 yrs, breast cancer. PT-OP-B Current Condition Start: 08/27/24 18:52 Freq: Status: Active Protocol: Document 09/02/24 16:03 LRN (Rec: 09/02/24 17:55 LRN [id number]) Current Condition History of Current Condition Onset Date 2 yrs ago, recent referral 6 months ago. Current Complaints Urinary leakage & increased frequ of urinating, UTI's. History of Current Condition Spouse/pt states she was sent for PT due to 6 months ago, pt needing to urinate frequently , so had catheter put in, then 3 days later she had a lot of (abdominal) pain and catheter was removed. She had a prior history (2 yrs ago) of catheter placement without problems when inserted by some at [facility]. An internal catheter was tried a second time by [facility] nurse, but she had the same problem of abdominal pain . Now uses a Purewick Catheter at nighttime for past 3-4 months, and during the day the spouse takes her to the bathroom all the time; therefore she is referred to PT for exercises. Pt/spouse wants to be able to try a smaller catheter. She has had 2 UTI's and recently tested positive for another UTI. She c/o a sore buttock because of all her sitting, but denies having an ulcer, stating she is very itchy. She is using at home ointments and salves with the best pain reliever being Aspercreme. Prior Treatments and Tests None Developmental History Developmental History 4 children of vaginal births. No complications. Treatment Goals Patient/Caregiver Goals Pt goals: - be able to transfer without leaking, (now ~2-3x/day). - be able to decrease times leaking trying to get to the toilet, (now, ~2x/day). - reduce the times needed to void during the day, (now, every 2 hrs). - pt agreeable to being consistent on a HEP. Personal Factors Other Personal Factors That May Effect Lives 4 blks away in 2 story Therapy/Recovery house in [place], but lives on bottom level. 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 Shingles for 2 ys left her inactive & weak. Sits all day. Can walk with 4WW walker and handbrakes (50' ) with spouse mod>max assist. Abdominal hernia and severe hemorrhoids. Hx of Breast CA. PT-OP-C Subjective Start: 08/27/24 18:52 Freq: Status: Active Protocol: Document 09/30/24 14:33 LRN (Rec: 09/30/24 15:20 LRN [id number]) OP-PT Subjective Patient Comments Patient Comments Would like to make this appt the last visit. Spouse speaks of asking to try using a catheter insert. No change in leakage. Not doing exercises. Urge deference technique was tried and she was able to get to bathroom on time. PT-OP-I Pelvic Floor Start: 08/27/24 18:52 Freq: Status: Active Protocol: Document 09/02/24 16:03 LRN (Rec: 09/02/24 17:55 LRN [id number]) Pelvic Floor Assessment Urine Leakage Size Large Leakage Cause Cough,Urge Other Leakage Causes Movement, Leaks Per Day 2-3 Voiding Frequency every 2 hrs Nocturia None with Purewick, prior 2-3x /night Pads Used In 24 Hours Cloth ones 5x/day with Pose #6 pad, nighttime 1x. Urine Pad Type Depends Bowel Bowel Movement Frequency 1-2/day [place] Stool Chart Comments 4-6. Takes psylium husk and a stool softener, daily Pelvic Clock Pelvic Clock 12-3 Tenderness Pelvic Clock 3-6 Tenderness Pelvic Clock 6-9 Tenderness,Tightness Pelvic Clock 9-12 Tenderness,Tightness Pelvic Clock Other Tenderness of superficial PF ms. Tender 12-6 of PF clock. Inter-Rectal Assessment Visible hemorrhoidm ? rectocele. Perineal Descent Resting Absent Bearing Absent Contraction Ability Manual Muscle Testing Left 0 Manual Muscle Testing Right 2 Manual Muscle Testing Anterior 0 Manual Muscle Testing Posterior 1 Comments Pelvic Floor Comments CONSENT: Pt consented to PF external and internal exam. PT-OP-J Posture/Palpation/Skin Start: 08/27/24 18:52 Freq: Status: Active Protocol: Document 09/02/24 16:03 LRN (Rec: 09/02/24 17:55 LRN [id number]) Posture Evaluation Comments Posture Comments Sitting in Wheelchair posture: Sits leaning to left, curvature of spine. PT-OP-K Range of Motion Start: 08/27/24 18:52 Freq: Status: Active Protocol: Document 09/02/24 16:03 LRN (Rec: 09/02/24 17:55 LRN [id number]) Hip Goniometric Range of Motion Hip Right Passive Testing Position Supine Abduction 11 Internal Rotation 40 External Rotation 15 Comments lacks 13 deg's ext Left Passive Testing Position Supine Abduction 3 Internal Rotation 10 External Rotation 30 Comments lacks 13 deg's ext PT-OP-M Strength Start: 08/27/24 18:52 Freq: Status: Active Protocol: Document 09/02/24 16:03 LRN (Rec: 09/02/24 17:55 LRN [id number]) Hip Strength Hip Manual Muscle Testing Right External Rotation 3 Fair Internal Rotation 5 Normal Left External Rotation 3 Fair Internal Rotation 5 Normal PT-OP-Q Treatments Start: 08/27/24 18:52 Freq: Status: Active Protocol: Document 09/30/24 14:33 LRN (Rec: 09/30/24 15:20 LRN [id number]) Therapeutic Exercises Sitting Exercises Endurance Kegel Sitting Exercise Name Ball squeeze, then BKFO w/ Endurance Kegel Reps/Minutes 10 SH x 10 Comments Extra time for trng pt to hold kegel & relax PF ms Quick Kegel Sitting Exercise Name Ball squeeze, then BKFO w/ Quick Kegel Reps/Minutes 2 SH x 10 Comments Extra time for trng pt to hold kegel & relax PF ms Therapeutic Activity Therapeutic Activity Transfer training Name Sit<>stand training w/gait belt/Mod++ assist Reps/Minutes 6' Transfers w/core pressure mgmt Name Transfers sit<>stand and sit<> semi-supine w/kegel & breath Reps/Minutes 17' Comments Mod++ assist for transfers with use of gait belt. Self-Care/Home Management Treatment Education Other Education Discussed & reviewed bladder diary times between voids and variabel onset of urinary leakage as it related to transfers and use of urge deferencet technique to delay urination. Encouraged pt/spouse ( caregiver) to do Kegel ex's and discussed need for her to do her ex's regularly. Activities Self-Care/Home Management Activities Reviewed self care HEP of quick and long hold kegels and use of urge deference techinque to delay urination. PT-OP-T Assessment and Plan Start: 08/27/24 18:52 Freq: Status: Active Protocol: Document 09/30/24 14:33 LRN (Rec: 09/30/24 15:20 LRN [id number]) Physical Therapy Assessment Goals Three Impairment Urinary leakage getting to toilet and transferring onto toilet. Short Term Goal (STG) Pt will be educated and use the urge deference technique to be able to help reduce urinary leakage trying to get to bathroom (now ~2-3x/day). 09/17/24: Pt educated in urge deference technique. 09/30/24: Spouse feels with the urge deference technique there is very little urinary leaks getting to the toilet. Bladder diary indicates 2-5x leakage per day. STG Duration 09/20/24 (09/30/24: inconsistent, therefore NOT MET GOAL) Senior Living Goal (LTG) Pt will be to use the urge deference technique to reduce urinary leakage with transfers onto toilet (now ~2-3x/day). 09/30/24: Spouse and pt believes her urinary leakage has been reduced. Bladder diary indicates 2-5x leakage per day. LTG Duration 10/03/24 (09/30/24: Improved, NOT MET GOAL) Two Impairment Increased urinary frequency ( every 2 hrs). Short Term Goal (STG) Pt will be put on a toileting schedule to help reduce urinary leakage trying to get to bathroom (now ~2-3x/day). 09/17/24: Discussed and educated pt and caretgiver in starting the pt on toileting schedule of every 2 hrs. 09/30/24: Per bladder diary, pt toileting schedule is every 2-3 hrs, leakage is 2-5x/day. STG Duration 09/20/24 (09/30/24: inconsistent, NOT MET GOAL) Senior Living Goal (LTG) Pt will use the urge deference technique for bladder retraining to be able to reduce the times needed to void during the day, (now, every 2 hrs). 09/30/24: Voiding every 2-3 hrs. LTG Duration 10/03/24 (09/30/24: Improved but inconsistent, NOT MET GOAL) One Impairment Pt lacks an independent self care HEP. Short Term Goal (STG) Pt will be educated how to lessen core abdominal pressure and will be able to learn how to breath during transfers. 09/30/24: Pt educated in core pressure mgmt with breath during transfers sit<>stand, sit<>supine. STG Duration 09/20/24 (09/30/24: MET GOAL) Senior Living Goal (LTG) Pt will be independent in a self care HEP for PF strengthening ex's to demonstrate improved L lateral wall, anterior & posterior PF strength 2/5 for symmetry with R lateral wall strength of 2/5. 09/02/24 HEP: Kegel ex's and discussed exercise of Quick Flicks, Long Holds and Aggravators. LTG Duration 10/03/24 (09/30/24: Early DC, partially met goal) Assessment Summary Assessment Pt is an 84 yo female who presents with mixed urinary incontinence, s/p 5 strokes (L sided PF lateral wall weakness of 0/5), carl YARELI, abdominal hernia, and hx of PF pain from catheter use. The pt admits that she is not doing her kegel ex's but she and spouse feels she has improved. The pt always appears to have a good understanding of instructions and exercises/activities given to her, but she appears to have poor follow through. Her spouse is having YARELI surgery 10/09/24; therefore they have chosen not to attend their last scheduled visit and agrees to discharge to day to a HEP. Per her bladder diary she appears to have made some progress, but lacks motivation . Once the spouse has recovered from his surgery return of the pt for PF physical therapy would be appropriate to maximize her PF strength potential, as long as the pt is committed to doing her HEP. Physical Therapy Plan Discharge Physical Therapy Discharge Reasons Patient Request Discharge Comments Please read assessment above. Thank you for your referral.
== END 2024-10-07 10:44 | disposition home or self-care (01) ==
LOC: PHYS 14:30
PROVIDERS: Family Provider Physician Assistant; PCP Physician Assistant; Referring Provider Urology; Visit Provider Urology
DX: R32 Unspecified urinary incontinence (principal); N32.81 Overactive bladder; M62.81 Muscle weakness (generalized); R29.3 Abnormal posture; M25.659 Stiffness of unspecified hip, not elsewhere classified
CPT/HCPCS: 97110; 97163; 97530; 97535

== ENCOUNTER 2025-05-27 12:37 | Emergency (ER) | payer MEDICARE, OTHER, SELFPAY ==
[2025-05-27] VITALS (11 sets, daily range): BP systolic 143–160; BP diastolic 65–77; PULSE 63–91; RESP 14–25; TEMP 37.1; O2SAT 91–97; BMI 24.7
--- NOTE | 2025-05-27 13:15 | ED.FEMALEGU ---
HPI - Female Genitourinary <Tal Vyas MD - Last Filed: 05/31/25 18:45> General Chief complaint: Urogenital-Female Stated complaint: UTI w/ lots of pain Time Seen by Provider: 05/27/25 12:53 Mode of arrival: Wheelchair History of Present Illness HPI Narrative: This is an 85-year-old female with a history of stroke and post herpetic neuralgia with chronic urinary incontinence complaining of dysuria. She has had it for a week. It is not accompanied by fevers or vomiting. She has not seen a physician for this episode previously. Patient and her report that she has had urinary tract infections in the past. He also has a chronic abdominal wall hernia. She has chronic abdominal tenderness. and patient report that this is unchanged. Related Data Home Medications ?Medication ?Instructions ?Recorded ?Confirmed levothyroxine 100 mcg tablet 1 tab PO MOWEFR 01/10/18 10/18/24 levothyroxine 88 mcg tablet 1 tab PO SUTUTHSA 01/10/18 10/18/24 venlafaxine 37.5 mg 1 cap PO QPM 01/10/18 10/18/24 capsule,extended release 24 hr omeprazole 20 mg capsule,delayed 200 mg PO DAILY 03/04/22 10/18/24 release losartan 100 mg tablet 50 mg PO DAILY 02/24/23 10/18/24 vits no.126-ferrous fum tab PO 05/01/24 10/18/24 28 mg iron-folic acid 800 mcg tablet (Classic ) clotrimazole 1 % topical cream applic topical BID 10/18/24 10/18/24 hydroxyurea (sickle cell) 200 mg 200 mg PO DAILY 10/18/24 10/18/24 capsule (Droxia) ketoconazole 2 % topical cream 1 applic topical 10/18/24 10/18/24 losartan 50 mg tablet 50 mg PO DAILY 10/18/24 10/18/24 Previous Rx's ?Medication ?Instructions ?Recorded albuterol sulfate 90 mcg/actuation 2 puff inhalation Q6H PRN 03/01/23 aerosol inhaler shortness of breath or wheezing #6.7 grams lidocaine 5 % topical gel 1 ea topical BID PRN pain #10 grams 04/05/24 pramoxine 1 % topical foam 1 applic TN TID #15 grams 04/05/24 (Proctofoam) lactulose 20 gram/30 mL oral 20 g (30 mL) PO BID PRN 05/04/24 solution constipation #1,200 mL vibegron 75 mg tablet (Gemtesa) 75 mg PO DAILY #90 tabs 10/09/24 cefdinir 300 mg capsule 300 mg PO BID #10 caps 05/27/25 hydrocortisone acetate 25 mg 25 mg TN BID #24 ea 05/27/25 rectal suppository (Anusol-HC) phenazopyridine 100 mg tablet 100 mg PO TID PRN pain 6 doses #6 05/27/25 (Pyridium) tabs Allergies Allergy/AdvReac Type Severity Reaction Status Date / Time Penicillins (PENICILLINS) Allergy Severe LESIONS IN Verified 05/27/25 12:49 HER MOUTH ciprofloxacin (CIPROFLOXACIN) Allergy Intermediate tongue Verified 05/27/25 12:49 inflammation Review of Systems <Reji Jesus MD - Last Filed: 05/29/25 09:13> Review of Systems Narrative: GENERAL: Negative chills, fatigue, malaise, fever, sweats. HEENT: Negative sinus pain, ear pain, sore throat RESPIRATORY: Negative dyspnea, cough CARDIOVASCULAR: Negative chest pain, palpitations GASTROINTESTINAL: Negative vomiting, nausea, positive abdominal pain : Positive dysuria, frequency, negative hematuria MUSCULOSKELETAL: Negative muscle or bony pain SKIN: Negative rash, skin lesions NEUROLOGIC: Negative weakness, numbness ROS Unobtainable: All systems reviewed & are unremarkable except as noted in HPI and below Patient History <Tal Vyas MD - Last Filed: 05/31/25 18:45> Medical History Incontinence of urine Incontinence Hx of cancer antigen 125 (CA-125) measurement Cancer Pulmonary nodules CVA (cerebral vascular accident) Stroke Surgical History Hx of breast biopsy History of hip replacement Family History Father Hypertension Heart disease Mother Breast cancer Exam <Tal Vyas MD - Last Filed: 05/31/25 18:45> Narrative Exam Narrative: Frail-appearing elderly female. Vital signs are reviewed and without concerning abnormality. Normocephalic and atraumatic oral mucosa is moist Neck is supple Lungs remarkable for scattered rhonchi no wheezes or rales Cardiac regular rhythm and rate no murmur rub or gallop Abdomen is soft, bowel sounds are normal, there is a large palpable midline abdominal wall hernia. This is tender her abdomen is tender throughout with voluntary guarding. Patient and her describe this as baseline. Bladder is not palpably distended. Initial Vital Signs Initial Vital Signs: Vital Signs Temperature 98.7 F 05/27/25 12:49 Pulse Rate 63 05/27/25 12:49 Respiratory Rate 14 05/27/25 12:49 Blood Pressure 152/75 H 05/27/25 12:49 Pulse Oximetry 94 05/27/25 12:49 Oxygen Delivery Method Room Air 05/27/25 12:49 <Reji Jesus MD - Last Filed: 05/29/25 09:13> Initial Vital Signs Initial Vital Signs: Vital Signs Temperature 98.7 F 05/27/25 12:49 Pulse Rate 63 05/27/25 12:49 Respiratory Rate 14 05/27/25 12:49 Blood Pressure 152/75 H 05/27/25 12:49 Pulse Oximetry 94 05/27/25 12:49 Oxygen Delivery Method Room Air 05/27/25 12:49 <Comfort Guzmán DO - Last Filed: 05/29/25 09:05> Initial Vital Signs Initial Vital Signs: Vital Signs Temperature 98.7 F 05/27/25 12:49 Pulse Rate 63 05/27/25 12:49 Respiratory Rate 14 05/27/25 12:49 Blood Pressure 152/75 H 05/27/25 12:49 Pulse Oximetry 94 05/27/25 12:49 Oxygen Delivery Method Room Air 05/27/25 12:49 Course <Tal Vyas MD - Last Filed: 05/31/25 18:45> Orders Ordered: Discontinued Medications Ceftriaxone Sodium 2,000 mg/ (Sodium Chloride) 100 mls @ 200 mls/hr IV NOW ONE Stop: 05/27/25 15:07 Last Infusion: 05/27/25 16:21 Dose: Infused Documented By: Admin: 05/27/25 15:45 Dose: 200 mls/hr Documented By: EB Sodium Chloride (Normal Saline 0.9%) 250 mls @ 1,000 mls/hr IV NOW ONE Stop: 05/27/25 16:34 Last Infusion: 05/27/25 17:18 Dose: Infused Documented By: Admin: 05/27/25 16:38 Dose: 1,000 mls/hr Documented By: CELY Phenazopyridine HCl (Phenazopyridine 100 Mg Tablet) 100 mg PO NOW ONE Stop: 05/27/25 16:22 Last Admin: 05/27/25 16:38 Dose: 100 mg Documented By: CELY Vital Signs Vital signs: Vital Signs - 8 hr 05/27/25 12:49 05/27/25 13:56 05/27/25 13:59 Temperature 98.7 F Pulse Rate 63 89 87 Respiratory Rate 14 25 H Blood Pressure 152/75 H Pulse Oximetry 94 94 93 Oxygen Delivery Method Room Air 05/27/25 13:59 05/27/25 14:00 05/27/25 14:01 Temperature Pulse Rate 85 85 Respiratory Rate 24 18 Blood Pressure 160/71 H Pulse Oximetry 93 93 Oxygen Delivery Method 05/27/25 14:01 05/27/25 14:30 05/27/25 14:30 Temperature Pulse Rate 84 Respiratory Rate 20 Blood Pressure 156/68 H 143/72 H Pulse Oximetry 93 Oxygen Delivery Method 05/27/25 15:00 05/27/25 15:00 05/27/25 15:30 Temperature Pulse Rate 86 88 Respiratory Rate 19 20 Blood Pressure 157/76 H Pulse Oximetry 91 97 Oxygen Delivery Method 05/27/25 15:30 05/27/25 16:00 05/27/25 16:00 Temperature Pulse Rate 85 Respiratory Rate 17 Blood Pressure 159/75 H 145/68 H Pulse Oximetry 96 Oxygen Delivery Method Room Air <Reji Jesus MD - Last Filed: 05/29/25 09:13> Orders Ordered: Discontinued Medications Ceftriaxone Sodium 2,000 mg/ (Sodium Chloride) 100 mls @ 200 mls/hr IV NOW ONE Stop: 05/27/25 15:07 Last Infusion: 05/27/25 16:21 Dose: Infused Documented By: Admin: 05/27/25 15:45 Dose: 200 mls/hr Documented By: JACK Sodium Chloride (Normal Saline 0.9%) 250 mls @ 1,000 mls/hr IV NOW ONE Stop: 05/27/25 16:34 Last Infusion: 05/27/25 17:18 Dose: Infused Documented By: Admin: 05/27/25 16:38 Dose: 1,000 mls/hr Documented By: LILAC Phenazopyridine HCl (Phenazopyridine 100 Mg Tablet) 100 mg PO NOW ONE Stop: 05/27/25 16:22 Last Admin: 05/27/25 16:38 Dose: 100 mg Documented By: RLC Vital Signs Vital signs: Vital Signs - 8 hr 05/27/25 12:49 05/27/25 13:56 05/27/25 13:59 Temperature 98.7 F Pulse Rate 63 89 87 Respiratory Rate 14 25 H Blood Pressure 152/75 H Pulse Oximetry 94 94 93 Oxygen Delivery Method Room Air 05/27/25 13:59 05/27/25 14:00 05/27/25 14:01 Temperature Pulse Rate 85 85 Respiratory Rate 24 18 Blood Pressure 160/71 H Pulse Oximetry 93 93 Oxygen Delivery Method 05/27/25 14:01 05/27/25 14:30 05/27/25 14:30 Temperature Pulse Rate 84 Respiratory Rate 20 Blood Pressure 156/68 H 143/72 H Pulse Oximetry 93 Oxygen Delivery Method 05/27/25 15:00 05/27/25 15:00 05/27/25 15:30 Temperature Pulse Rate 86 88 Respiratory Rate 19 20 Blood Pressure 157/76 H Pulse Oximetry 91 97 Oxygen Delivery Method 05/27/25 15:30 05/27/25 16:00 05/27/25 16:00 Temperature Pulse Rate 85 Respiratory Rate 17 Blood Pressure 159/75 H 145/68 H Pulse Oximetry 96 Oxygen Delivery Method Room Air <Comfort Guzmán, - Last Filed: 05/29/25 09:05> Orders Ordered: Discontinued Medications Ceftriaxone Sodium 2,000 mg/ (Sodium Chloride) 100 mls @ 200 mls/hr IV NOW ONE Stop: 05/27/25 15:07 Last Infusion: 05/27/25 16:21 Dose: Infused Documented By: Admin: 05/27/25 15:45 Dose: 200 mls/hr Documented By: JACK Sodium Chloride (Normal Saline 0.9%) 250 mls @ 1,000 mls/hr IV NOW ONE Stop: 05/27/25 16:34 Last Infusion: 05/27/25 17:18 Dose: Infused Documented By: RLFiordaliza Admin: 05/27/25 16:38 Dose: 1,000 mls/hr Documented By: CELY Phenazopyridine HCl (Phenazopyridine 100 Mg Tablet) 100 mg PO NOW ONE Stop: 05/27/25 16:22 Last Admin: 05/27/25 16:38 Dose: 100 mg Documented By: CELY Vital Signs Vital signs: Vital Signs - 8 hr 05/27/25 12:49 05/27/25 13:56 05/27/25 13:59 Temperature 98.7 F Pulse Rate 63 89 87 Respiratory Rate 14 25 H Blood Pressure 152/75 H Pulse Oximetry 94 94 93 Oxygen Delivery Method Room Air 05/27/25 13:59 05/27/25 14:00 05/27/25 14:01 Temperature Pulse Rate 85 85 Respiratory Rate 24 18 Blood Pressure 160/71 H Pulse Oximetry 93 93 Oxygen Delivery Method 05/27/25 14:01 05/27/25 14:30 05/27/25 14:30 Temperature Pulse Rate 84 Respiratory Rate 20 Blood Pressure 156/68 H 143/72 H Pulse Oximetry 93 Oxygen Delivery Method 05/27/25 15:00 05/27/25 15:00 05/27/25 15:30 Temperature Pulse Rate 86 88 Respiratory Rate 19 20 Blood Pressure 157/76 H Pulse Oximetry 91 97 Oxygen Delivery Method 05/27/25 15:30 05/27/25 16:00 05/27/25 16:00 Temperature Pulse Rate 85 Respiratory Rate 17 Blood Pressure 159/75 H 145/68 H Pulse Oximetry 96 Oxygen Delivery Method Room Air MDM - Female Genitourinary <Tal Vyas MD - Last Filed: 05/31/25 18:45> Lab Data 05/27/25 14:45 05/27/25 14:45 Labs: Lab Results 05/27/25 05/27/25 Range/Units 13:50 14:45 WBC 9.0 (4.5-11.0) X10^3/uL RBC 3.92 L (4.0-5.2) X10^6/uL Hgb 12.0 (12.0-16.0) g/dL Hct 35.9 L (36-46) % MCV 91.6 (80-100) fL MCH 30.6 (26-34) PG MCHC 33.4 (30-36) % RDW 15.1 H (11.6-14.8) % Plt Count 598 H (150-400) X10^3/uL Neut % (Auto) 78.8 H (50-75) % Lymph % (Auto) 12.5 L (25-40) % Early % (Auto) 6.7 (3-14) % Eos % (Auto) 1.6 L (2-4) % Baso % (Auto) 0.4 (0-2) % Neut # (Auto) 7100 H (7220-5240) /uL Lymph # (Auto) 1100 (9374-8908) /uL Early # (Auto) 600 (0-900) /uL Eos # (Auto) 100 (0-450) /uL Baso # (Auto) 0 (0-100) /uL Sodium 137 (137-145) mmol/L Potassium 4.0 (3.4-5.1) mmol/L Chloride 100 (98-107) mmol/L Carbon Dioxide 27 (22-32) mmol/L BUN 16 (7-17) mg/dL Creatinine 0.67 (0.52-1.04) mg/dL Estimated GFR > 60 (>60) mL/min BUN/Creatinine Ratio 23.9 H (6-22) Glucose 94 (70-99) mg/dL Calcium 8.7 (8.4-10.2) mg/dL Total Bilirubin 0.7 (0.2-1.3) mg/dL AST 32 (14-36) IU/L ALT 22 (<35) IU/L Alkaline Phosphatase 107 (38-126) U/L Total Protein 7.7 (6.3-8.2) g/dL Albumin 3.7 (3.5-5.0) g/dL Globulin 4.0 (1.7-4.1) g/dL Albumin/Globulin Ratio 0.9 L (1.0-2.8) Lipase 42 (23-300) U/L Urine Color Yellow Urine Appearance Sl cloudy Urine pH 6.0 (4.5-8.0) Ur Specific [place] 1.020 (1.000-1.035) Urine Protein 1+ H (Negative) Urine Glucose (UA) Negative (Negative) g/dL Urine Ketones Negative (NEGATIVE) Urine Occult Blood Trace-intact (Negative) Urine Nitrate Positive H (Negative) Urine Bilirubin Negative (NEGATIVE) Urine Urobilinogen 0.2 (0.2) E.U./dL Ur Leukocyte Esterase 2+ H (NEGATIVE) Urine RBC 1-5/hpf (0-5/HPF) Urine WBC 30-100/hpf H (0-5/HPF) Ur Squamous Epith Cells 1-5 /hpf (0-5/HPF) Urine Bacteria Moderate (10-30) H (None) Ur Culture Indicated? Specimen cultured Micro UA Comment Vol Urine Centrifuged 10ml (spun) <Reji Jesus MD - Last Filed: 05/29/25 09:13> Lab Data Labs: Lab Results 05/27/25 05/27/25 Range/Units 13:50 14:45 WBC 9.0 (4.5-11.0) X10^3/uL RBC 3.92 L (4.0-5.2) X10^6/uL Hgb 12.0 (12.0-16.0) g/dL Hct 35.9 L (36-46) % MCV 91.6 (80-100) fL MCH 30.6 (26-34) PG MCHC 33.4 (30-36) % RDW 15.1 H (11.6-14.8) % Plt Count 598 H (150-400) X10^3/uL Neut % (Auto) 78.8 H (50-75) % Lymph % (Auto) 12.5 L (25-40) % Early % (Auto) 6.7 (3-14) % Eos % (Auto) 1.6 L (2-4) % Baso % (Auto) 0.4 (0-2) % Neut # (Auto) 7100 H (3197-2163) /uL Lymph # (Auto) 1100 (1929-7587) /uL Early # (Auto) 600 (0-900) /uL Eos # (Auto) 100 (0-450) /uL Baso # (Auto) 0 (0-100) /uL Sodium 137 (137-145) mmol/L Potassium 4.0 (3.4-5.1) mmol/L Chloride 100 (98-107) mmol/L Carbon Dioxide 27 (22-32) mmol/L BUN 16 (7-17) mg/dL Creatinine 0.67 (0.52-1.04) mg/dL Estimated GFR > 60 (>60) mL/min BUN/Creatinine Ratio 23.9 H (6-22) Glucose 94 (70-99) mg/dL Calcium 8.7 (8.4-10.2) mg/dL Total Bilirubin 0.7 (0.2-1.3) mg/dL AST 32 (14-36) IU/L ALT 22 (<35) IU/L Alkaline Phosphatase 107 (38-126) U/L Total Protein 7.7 (6.3-8.2) g/dL Albumin 3.7 (3.5-5.0) g/dL Globulin 4.0 (1.7-4.1) g/dL Albumin/Globulin Ratio 0.9 L (1.0-2.8) Lipase 42 (23-300) U/L Urine Color Yellow Urine Appearance Sl cloudy Urine pH 6.0 (4.5-8.0) Ur Specific [place] 1.020 (1.000-1.035) Urine Protein 1+ H (Negative) Urine Glucose (UA) Negative (Negative) g/dL Urine Ketones Negative (NEGATIVE) Urine Occult Blood Trace-intact (Negative) Urine Nitrate Positive H (Negative) Urine Bilirubin Negative (NEGATIVE) Urine Urobilinogen 0.2 (0.2) E.U./dL Ur Leukocyte Esterase 2+ H (NEGATIVE) Urine RBC 1-5/hpf (0-5/HPF) Urine WBC 30-100/hpf H (0-5/HPF) Ur Squamous Epith Cells 1-5 /hpf (0-5/HPF) Urine Bacteria Moderate (10-30) H (None) Ur Culture Indicated? Specimen cultured Micro UA Comment Vol Urine Centrifuged 10ml (spun) Imaging Data CT scan - abdomen/pelvis: Radiologist's Impression: [address] [address] [address] Scan Report Signed Patient: Tenisha Mejia MR#: [id number] : 1940 Acct:[id number] Age/Sex: 85 / F Date of Service: 05/27/25 Loc: ED Accession Number: [id number] Procedure: CT abdomen pelvis w con Ordering Provider: Tal Vyas MD PROCEDURE: CT ABDOMEN PELVIS W CON INDICATIONS: abdominal pain, generalized TECHNIQUE: After the administration of intravenous contrast, axial sections acquired from the lung bases to the pubic symphysis. Coronal and sagittal reformats were performed. For radiation dose reduction, the following was used: automated exposure control, adjustment of mA and/or kV according to patient size. COMPARISON: [facility], CT, CT ABDOMEN PELVIS W CON, 05/04/2024, 17:21. FINDINGS: Image quality: Diagnostic. Lower Chest: Dependent atelectasis in posterior aspect of bilateral lower lobes are seen. Heart size is enlarged, no pericardial effusion. Moderate size hiatal hernia is seen. ABDOMEN: Liver: No solid mass. Gallbladder: Distended gallbladder. No radiopaque gallstones or wall thickening. Biliary ducts: No biliary dilation. Pancreas: No ductal dilation. Spleen: Size is within normal limits. Adrenal Glands: No adrenal nodules. Kidneys and Ureters: No hydronephrosis. No solid mass. Simple appearing bilateral renal cysts are seen. No complex renal cystic lesion which requires follow up. Stomach and Bowel: There is no bowel obstruction or abnormal bowel wall thickening. Evrn-vf-kjufofrj fecal stasis in the colon is seen. There is suggestion of mid to distal sigmoid colon wall thickening and narrowing of the lumen. Colonic diverticulosis is also seen. No abscess collection. No extra luminal air. No evidence of acute appendicitis. Peritoneum: No abnormal intraperitoneal fluid. No free air. Ventral Wall: Moderate sized ventral hernia is seen containing a segment of transverse colon loop. Abdominal Nodes: No retroperitoneal or mesenteric adenopathy by size criteria. Vessels: Aorta and inferior vena cava are normal in size. Moderate atherosclerotic calcifications are seen in abdominal aorta. PELVIS: Pelvic Organs: Unremarkable. Bladder: No bladder wall thickening, accounting for underdistention. Pelvic Nodes: No enlarged lymph nodes. Miscellaneous: No inguinal hernias are seen. Bones: No aggressive osseous abnormality. There is bilateral total hip arthroplasty with significant beam hardening artifacts. IMPRESSION: 1. Qftf-ej-hlluvoyy constipation. Moderate size ventral hernia containing fat only. Moderate hiatal hernia. Suggestion of infectious or inflammatory colitis versus diverticulitis involving mid to distal sigmoid colon with diffuse wall thickening and narrowing of the lumen. No abscess collection. No free fluid or free air. No evidence of acute appendicitis. 2. No obstructing renal stones or hydronephrosis. Dictated by: Ken Atkins M.D. on 05/27/2025 at 15:39 Approved by: Ken Atkins M.D. on 05/27/2025 at 15:42 [facility] Narrative Medical decision making narrative: 3:[address] Jesus: Sign-out from Dr. Vyas. Patient here for urinary complaints as well as abdominal pain. Laboratory studies and CT imaging is pending. Rocephin has been ordered. I did examine patient. Abdomen is soft nontender no peritoneal signs no upper or lower quadrant tenderness. No CVA tenderness. MDM After history and exam, CBC CMP urinalysis CT abdomen pelvis Differential considered: Includes but not limited to UTI cystitis kidney stone pyelonephritis Medical records reviewed: No recent visit here for this complaint Lab Test results independently reviewed as above. Pertinent findings: WBC 9.0 hemoglobin 12 sodium 137 potassium 4 BUN 16 creatinine 0.67 glucose 94 AST 32 ALT 22 lipase 42 urinalysis positive nitrate positive leukocyte esterase WBC 30-100 moderate bacteria Imaging studies independently reviewed: CT abdomen pelvis [id number] constipation. Colitis versus diverticulitis Consultations: None indicated at this time however referral for General surgery will be provided regarding hemorrhoids Re-evaluations: 4:18 p.m.. Female nurse, Alyssa, at bedside to assess for rectal exam. Large chronic hemorrhoid/external without bleeding. Has been and patient states it has been there for many years. He has been doing topical cream. No bleeding. Patient states she was informed she was high risk for any surgery for removal. I will give her referral to General surgery for re-evaluation. Reviewed results with patient. She has no no no abdominal pain. She has had diverticulitis in the past and she states this is not diverticulitis pain. She has no abdominal pain except for dysuria, painful urination. Antibiotics have been started. Prescriptions were provided for cefdinir as well as Anusol. Return precautions reviewed. They desire discharge home. Pyridium will be provided. Discussion: IV contrast use for CT imaging. Appropriate for discharge home. Exam is reassuring. Patient in no distress. Antibiotics have been started. Pain is controlled. They desire discharge home. Patient had no reaction/side effect to Rocephin her penicillin allergy. Diagnosis: Acute UTI, external hemorrhoids <Comfort Guzmán DO - Last Filed: 05/29/25 09:05> Lab Data Labs: Lab Results 05/27/25 05/27/25 Range/Units 13:50 14:45 WBC 9.0 (4.5-11.0) X10^3/uL RBC 3.92 L (4.0-5.2) X10^6/uL Hgb 12.0 (12.0-16.0) g/dL Hct 35.9 L (36-46) % MCV 91.6 (80-100) fL MCH 30.6 (26-34) PG MCHC 33.4 (30-36) % RDW 15.1 H (11.6-14.8) % Plt Count 598 H (150-400) X10^3/uL Neut % (Auto) 78.8 H (50-75) % Lymph % (Auto) 12.5 L (25-40) % Early % (Auto) 6.7 (3-14) % Eos % (Auto) 1.6 L (2-4) % Baso % (Auto) 0.4 (0-2) % Neut # (Auto) 7100 H (1406-7626) /uL Lymph # (Auto) 1100 (4287-6222) /uL Early # (Auto) 600 (0-900) /uL Eos # (Auto) 100 (0-450) /uL Baso # (Auto) 0 (0-100) /uL Sodium 137 (137-145) mmol/L Potassium 4.0 (3.4-5.1) mmol/L Chloride 100 (98-107) mmol/L Carbon Dioxide 27 (22-32) mmol/L BUN 16 (7-17) mg/dL Creatinine 0.67 (0.52-1.04) mg/dL Estimated GFR > 60 (>60) mL/min BUN/Creatinine Ratio 23.9 H (6-22) Glucose 94 (70-99) mg/dL Calcium 8.7 (8.4-10.2) mg/dL Total Bilirubin 0.7 (0.2-1.3) mg/dL AST 32 (14-36) IU/L ALT 22 (<35) IU/L Alkaline Phosphatase 107 (38-126) U/L Total Protein 7.7 (6.3-8.2) g/dL Albumin 3.7 (3.5-5.0) g/dL Globulin 4.0 (1.7-4.1) g/dL Albumin/Globulin Ratio 0.9 L (1.0-2.8) Lipase 42 (23-300) U/L Urine Color Yellow Urine Appearance Sl cloudy Urine pH 6.0 (4.5-8.0) Ur Specific [place] 1.020 (1.000-1.035) Urine Protein 1+ H (Negative) Urine Glucose (UA) Negative (Negative) g/dL Urine Ketones Negative (NEGATIVE) Urine Occult Blood Trace-intact (Negative) Urine Nitrate Positive H (Negative) Urine Bilirubin Negative (NEGATIVE) Urine Urobilinogen 0.2 (0.2) E.U./dL Ur Leukocyte Esterase 2+ H (NEGATIVE) Urine RBC 1-5/hpf (0-5/HPF) Urine WBC 30-100/hpf H (0-5/HPF) Ur Squamous Epith Cells 1-5 /hpf (0-5/HPF) Urine Bacteria Moderate (10-30) H (None) Ur Culture Indicated? Specimen cultured Micro UA Comment Vol Urine Centrifuged 10ml (spun) MDM Narrative Medical decision making narrative: 3:[address] Jesus: Sign-out from Dr. Vyas. Patient here for urinary complaints as well as abdominal pain. Laboratory studies and CT imaging is pending. Rocephin has been ordered. I did examine patient. Abdomen is soft nontender no peritoneal signs no upper or lower quadrant tenderness. No CVA tenderness. MDM After history and exam, CBC CMP urinalysis CT abdomen pelvis Differential considered: Includes but not limited to UTI cystitis kidney stone pyelonephritis Medical records reviewed: No recent visit here for this complaint Lab Test results independently reviewed as above. Pertinent findings: WBC 9.0 hemoglobin 12 sodium 137 potassium 4 BUN 16 creatinine 0.67 glucose 94 AST 32 ALT 22 lipase 42 urinalysis positive nitrate positive leukocyte esterase WBC 30-100 moderate bacteria Imaging studies independently reviewed: CT abdomen pelvis [id number] constipation. Colitis versus diverticulitis Consultations: None indicated at this time however referral for General surgery will be provided regarding hemorrhoids Re-evaluations: 4:18 p.m.. Female nurse, Alyssa, at bedside to assess for rectal exam. Large chronic hemorrhoid/external without bleeding. Has been and patient states it has been there for many years. He has been doing topical cream. No bleeding. Patient states she was informed she was high risk for any surgery for removal. I will give her referral to General surgery for re-evaluation. Reviewed results with patient. She has no no no abdominal pain. She has had diverticulitis in the past and she states this is not diverticulitis pain. She has no abdominal pain except for dysuria, painful urination. Antibiotics have been started. Prescriptions were provided for cefdinir as well as Anusol. Return precautions reviewed. They desire discharge home. Pyridium will be provided. Discussion: IV contrast use for CT imaging. Appropriate for discharge home. Exam is reassuring. Patient in no distress. Antibiotics have been started. Pain is controlled. They desire discharge home. Patient had no reaction/side effect to Rocephin her penicillin allergy. Diagnosis: Acute UTI, external hemorrhoids 05/29/25 Dr. Guzmán: Urine culture positive for E coli 70,000 to 80,000 CFU pansensitive patient discharged home on cefdinir. No additional changes to antibiotics at this time. Discharge Plan Departure Patient Disposition: Home Clinical Impression: Urinary tract infection Qualifiers: Urinary tract infection type: site unspecified Hematuria presence: without hematuria Qualified Code(s): N39.0 - Urinary tract infection, site not specified Instructions: DI for Hemorrhoids, DI for Urinary Tract Infection (UTI) Activity Restrictions/Additional Instructions: Your exam and laboratory studies are reassuring. Antibiotics have been started. Prescription antibiotic cefdinir has been sent to your pharmacy to continue tomorrow. In addition Anusol suppository has been provided/prescription for UTI for hemorrhoids. Please call provided general surgery office tomorrow for re-evaluation of your hemorrhoid care. Please see your family doctor regarding your infection of the urine this week for re-evaluation. We if any questions or concerns. Prescriptions: New phenazopyridine [Pyridium] 100 mg tablet 100 mg PO TID PRN (Reason: pain) Qty: 6 0RF cefdinir 300 mg capsule 300 mg PO BID Qty: 10 0RF hydrocortisone acetate [Anusol-HC] 25 mg suppository 25 mg TN BID Qty: 24 0RF No Action clotrimazole 1 % cream topical BID Droxia 200 mg capsule 200 mg PO DAILY ketoconazole 2 % cream 1 applic topical losartan 50 mg tablet 50 mg PO DAILY albuterol sulfate 90 mcg/actuation HFA aerosol inhaler 2 puff inhalation Q6H PRN (Reason: shortness of breath or wheezing) Qty: 6.7 5RF Gemtesa 75 mg tablet 75 mg PO DAILY Qty: 90 3RF levothyroxine 88 mcg tablet 1 tab PO SUTUTHSA levothyroxine 100 mcg tablet 1 tab PO MOWEFR venlafaxine 37.5 mg capsule,extended release 24hr 1 cap PO QPM losartan 100 mg tablet 50 mg PO DAILY Patient Comments: TK 1 T PO QD omeprazole 20 mg capsule,delayed release(DR/EC) 200 mg PO DAILY Patient Comments: TAKE 1 CAPSULE BY MOUTH EVERY DAY 30 MINUTES BEFORE BREAKFAST pramoxine [Proctofoam] 1 % foam 1 applic TN TID Qty: 15 2RF lidocaine 5 % gel 1 ea topical BID PRN (Reason: pain) Qty: 10 0RF lactulose 20 gram/30 mL solution 20 g PO BID PRN (Reason: constipation) Qty: 1200 0RF Classic 28 mg iron- 800 mcg tablet PO Referrals: Raeann Thakur MD [Physician, General Surgery] Floresita King PA-C [Primary Care Provider, Medical] Stand Alone Forms: Patient Portal/API
[2025-05-27 14:01] LABS: Appearance Urine UA SL CLOUDY; Bilirubin Urine UA NEGATIVE (NEGATIVE); Color Urine UA YELLOW; Glucose Urine UA NEGATIVE (Negative); Ketones Urine UA NEGATIVE (NEGATIVE); Leukocyte Esterase Urine UA 2+ (NEGATIVE); Nitrite Urine UA POSITIVE (Negative); Occult Blood Urine UA TRACE-INTACT (Negative); Protein Urine UA 1+ (Negative); Specific Gravity Urine UA 1.020 (1.000-1.035); Urobilinogen Urine UA 0.2 E.U./dL (0.2)
[2025-05-27 14:12] LABS: pH Urine UA 6.0 (4.5-8.0)
[2025-05-27 14:20] LABS: Culture Indicated Urine Specimen Cultured
[2025-05-27 14:55] LABS: Add Manual Diff / Slide Review NO; Hematocrit 35.9 % (36-46); Hemoglobin 12.0 g/dL (12.0-16.0); Lymphocytes Absolute Auto 1100 /uL (1100-4500); Mean Corpuscular HGB Conc 33.4 % (30-36); Mean Corpuscular Hemoglobin 30.6 PG (26-34); Mean Corpuscular Volume 91.6 fL (80-100); Platelet Count 598 X10^3/uL (150-400)
[2025-05-27 15:09] LABS: Alanine Aminotransferase 22 IU/L (<35); Albumin 3.7 g/dL (3.5-5.0); Albumin Globulin Ratio 0.9 (1.0-2.8); Alkaline Phosphatase 107 U/L (38-126); Blood Urea Nitrogen 16 mg/dL (7-17); Calcium 8.7 mg/dL (8.4-10.2); Carbon Dioxide 27 mmol/L (22-32); Chloride 100 mmol/L (98-107); Estimated Glomerular Filt Rate > 60 mL/min (>60); Globulin 4.0 g/dL (1.7-4.1); Glucose 94 mg/dL (70-99); HEMOLYSIS 21 (0-50); Lipase 42 U/L (23-300); Potassium 4.0 mmol/L (3.4-5.1); Sodium 137 mmol/L (137-145); Total Protein 7.7 g/dL (6.3-8.2)
--- NOTE | 2025-05-27 15:14 | DI.CT.S_ITS ---
PROCEDURE: CT ABDOMEN PELVIS W CON INDICATIONS: abdominal pain, generalized TECHNIQUE: After the administration of intravenous contrast, axial sections acquired from the lung bases to the pubic symphysis. Coronal and sagittal reformats were performed. For radiation dose reduction, the following was used: automated exposure control, adjustment of mA and/or kV according to patient size. COMPARISON: [facility], CT, CT ABDOMEN PELVIS W CON, 05/04/2024, 17:21. FINDINGS: Image quality: Diagnostic. Lower Chest: Dependent atelectasis in posterior aspect of bilateral lower lobes are seen. Heart size is enlarged, no pericardial effusion. Moderate size hiatal hernia is seen. ABDOMEN: Liver: No solid mass. Gallbladder: Distended gallbladder. No radiopaque gallstones or wall thickening. Biliary ducts: No biliary dilation. Pancreas: No ductal dilation. Spleen: Size is within normal limits. Adrenal Glands: No adrenal nodules. Kidneys and Ureters: No hydronephrosis. No solid mass. Simple appearing bilateral renal cysts are seen. No complex renal cystic lesion which requires follow up. Stomach and Bowel: There is no bowel obstruction or abnormal bowel wall thickening. [id number] fecal stasis in the colon is seen. There is suggestion of mid to distal sigmoid colon wall thickening and narrowing of the lumen. Colonic diverticulosis is also seen. No abscess collection. No extra luminal air. No evidence of acute appendicitis. Peritoneum: No abnormal intraperitoneal fluid. No free air. Ventral Wall: Moderate sized ventral hernia is seen containing a segment of transverse colon loop. Abdominal Nodes: No retroperitoneal or mesenteric adenopathy by size criteria. Vessels: Aorta and inferior vena cava are normal in size. Moderate atherosclerotic calcifications are seen in abdominal aorta. PELVIS: Pelvic Organs: Unremarkable. Bladder: No bladder wall thickening, accounting for underdistention. Pelvic Nodes: No enlarged lymph nodes. Miscellaneous: No inguinal hernias are seen. Bones: No aggressive osseous abnormality. There is bilateral total hip arthroplasty with significant beam hardening artifacts. IMPRESSION: 1. [id number] constipation. Moderate size ventral hernia containing fat only. Moderate hiatal hernia. Suggestion of infectious or inflammatory colitis versus diverticulitis involving mid to distal sigmoid colon with diffuse wall thickening and narrowing of the lumen. No abscess collection. No free fluid or free air. No evidence of acute appendicitis. 2. No obstructing renal stones or hydronephrosis. Dictated by: Ken Atkins M.D. on 05/27/2025 at 15:39 Approved by: Ken Atkins M.D. on 05/27/2025 at 15:42
[2025-05-27] MEDS: cefTRIAXone 2,000 MG in SODIUM CHLORIDE 0.9% 100 ML 200 MG IV (15:45)
[2025-05-27] MEDS: SODIUM CHLORIDE 0.9% 250 ML 1000 ML IV (16:38)
[2025-05-27] MEDS: PHENAZOPYRIDINE 100 MG TABLET PO (16:38)
== END 2025-05-27 17:21 | disposition home or self-care (01) ==
PROVIDERS: Emergency Medicine; Emergency Provider Emergency Medicine; Family Provider Physician Assistant; PCP Physician Assistant
DX: N39.0 Urinary tract infection, site not specified (principal); B96.20 Unspecified Escherichia coli [E. coli] as the cause of diseases classified elsewhere
CPT/HCPCS: 36415; 51701; 74177; 80053; 81001; 83690; 85025; 87077; 87086; 87186; 96361; 96365; 99284; J0696; J7050; Q9967

== ENCOUNTER 2025-06-26 16:04 | Emergency (ER) | payer MEDICARE, OTHER, SELFPAY ==
[2025-06-26 16:12] VITALS: BP 149/76; PULSE 90; RESP 16; TEMP 36.6; O2SAT 92; BMI 24.7
--- NOTE | 2025-06-26 18:06 | DI.RAD.S_ITS ---
PROCEDURE: XR CHEST 1V INDICATIONS: Chest Pain TECHNIQUE: One view of the chest was acquired. COMPARISON: [facility], CT, CT ABDOMEN PELVIS W CON, 05/27/2025, 15:16. [facility], CR, XR CHEST 2V, 12/07/2022, 17:09. FINDINGS: Surgical changes and devices: Surgical clips are noted in right breast. Lungs and pleura: Lungs are clear. No pleural effusions or pneumothorax. Mediastinum: Tortuous thoracic aorta.. Heart size is enlarged. Bones and chest wall: No suspicious bony lesions. Large hiatal hernia is again seen. IMPRESSION: No acute cardiopulmonary pathology. Dictated by: Ken Atkins M.D. on 06/26/2025 at 18:20 Approved by: Ken Atkins M.D. on 06/26/2025 at 18:21
[2025-06-26 19:04] LABS: Add Manual Diff / Slide Review NO; Hematocrit 33.1 % (36-46); Hemoglobin 10.9 g/dL (12.0-16.0); Lymphocytes Absolute Auto 1100 /uL (1100-4500); Mean Corpuscular HGB Conc 32.9 % (30-36); Mean Corpuscular Hemoglobin 29.8 PG (26-34); Mean Corpuscular Volume 90.7 fL (80-100); Platelet Count 678 X10^3/uL (150-400)
[2025-06-26 19:23] LABS: INR 1.2 (0.9-1.3); Prothrombin Time 13.3 SECONDS (9.4-12.5)
[2025-06-26 19:26] LABS: PTT Partial Thromboplastin Tim 27 SECONDS (25.1-36.5)
[2025-06-26 19:28] LABS: Alanine Aminotransferase 16 IU/L (<35); Albumin 3.4 g/dL (3.5-5.0); Albumin Globulin Ratio 0.8 (1.0-2.8); Alkaline Phosphatase 81 U/L (38-126); Blood Urea Nitrogen 12 mg/dL (7-17); Calcium 8.2 mg/dL (8.4-10.2); Carbon Dioxide 22 mmol/L (22-32); Chloride 103 mmol/L (98-107); Creatine Kinase 23 U/L (30-135); Estimated Glomerular Filt Rate > 60 mL/min (>60); Globulin 4.2 g/dL (1.7-4.1); Glucose 106 mg/dL (70-99); Lipase 19 U/L (23-300); Magnesium 2.0 mg/dL (1.6-2.3); Potassium 4.1 mmol/L (3.4-5.1); Sodium 134 mmol/L (137-145); Total Protein 7.6 g/dL (6.3-8.2)
[2025-06-26 19:32] LABS: HEMOLYSIS 122 (0-50)
[2025-06-26 19:39] LABS: NT-proBNP (BNP-Adult 18+) 1670 pg/mL (<450); Troponin I < 0.012 ng/mL (0.01-0.034)
--- NOTE | 2025-06-26 20:33 | PC.NURSE ---
pt states she has been hard to help at home. She is weak and unsteady on her feet. She spends much time in bed the patient complains of pain in her middle back, low buttock, and legs. Patient rolled on her side checked her back. her skin is in tact on her buttock. small area of blancheable skin.
--- NOTE | 2025-06-26 21:02 | ED.GENADULT ---
HPI - General Adult General Chief complaint: Weakness Stated complaint: generalized pain Time Seen by Provider: 06/26/25 20:23 Source: EMS Mode of arrival: EMS History of Present Illness HPI narrative: 85-year-old female with history of ventral hernia, has had outpatient general surgery consultation, felt to not be surgical candidate for elective repair, has generalized abdominal pain earlier today, chronic back pain that seems about the same, usually had been responsive to tramadol in the past, not recently taken. Has had urinary incontinence for quite some time, some malodorous urine, concern by for possible UTI. Not currently on antibiotics but recently treated on oral antibiotics for urinary infection with cefdinir. Related Data Home Medications ?Medication ?Instructions ?Recorded ?Confirmed levothyroxine 100 mcg tablet 1 tab PO MOWEFR 01/10/18 10/18/24 levothyroxine 88 mcg tablet 1 tab PO SUTUTHSA 01/10/18 10/18/24 venlafaxine 37.5 mg 1 cap PO QPM 01/10/18 10/18/24 capsule,extended release 24 hr omeprazole 20 mg capsule,delayed 200 mg PO DAILY 03/04/22 10/18/24 release losartan 100 mg tablet 50 mg PO DAILY 02/24/23 10/18/24 vits no.126-ferrous fum tab PO 05/01/24 10/18/24 28 mg iron-folic acid 800 mcg tablet (Classic ) clotrimazole 1 % topical cream applic topical BID 10/18/24 10/18/24 hydroxyurea (sickle cell) 200 mg 200 mg PO DAILY 10/18/24 10/18/24 capsule (Droxia) ketoconazole 2 % topical cream 1 applic topical 10/18/24 10/18/24 losartan 50 mg tablet 50 mg PO DAILY 10/18/24 10/18/24 Previous Rx's ?Medication ?Instructions ?Recorded albuterol sulfate 90 mcg/actuation 2 puff inhalation Q6H PRN 03/01/23 aerosol inhaler shortness of breath or wheezing #6.7 grams lidocaine 5 % topical gel 1 ea topical BID PRN pain #10 grams 04/05/24 pramoxine 1 % topical foam 1 applic ID TID #15 grams 04/05/24 (Proctofoam) lactulose 20 gram/30 mL oral 20 g (30 mL) PO BID PRN 05/04/24 solution constipation #1,200 mL vibegron 75 mg tablet (Gemtesa) 75 mg PO DAILY #90 tabs 10/09/24 cefdinir 300 mg capsule 300 mg PO BID #10 caps 05/27/25 hydrocortisone acetate 25 mg 25 mg ID BID #24 ea 05/27/25 rectal suppository (Anusol-HC) phenazopyridine 100 mg tablet 100 mg PO TID PRN pain 6 doses #6 05/27/25 (Pyridium) tabs cefdinir 300 mg capsule 300 mg PO BID 10 days #20 caps 06/27/25 metronidazole 500 mg tablet 500 mg PO TID #30 tabs 06/27/25 Allergies Allergy/AdvReac Type Severity Reaction Status Date / Time Penicillins (PENICILLINS) Allergy Severe LESIONS IN Verified 06/26/25 16:12 HER MOUTH ciprofloxacin (CIPROFLOXACIN) Allergy Intermediate tongue Verified 06/26/25 16:12 inflammation Patient History Medical History Incontinence of urine Incontinence Hx of cancer antigen 125 (CA-125) measurement Cancer Pulmonary nodules CVA (cerebral vascular accident) Stroke Surgical History Hx of breast biopsy History of hip replacement Family History Father Hypertension Heart disease Mother Breast cancer Social History marital status: household members: spouse lives independently: Yes occupational status: previously employed Smoking Status: Never smoker alcohol intake: current substance use type: does not use and unknown Smoking Status: Never smoker alcohol intake frequency: a few times a month Exam Narrative Exam Narrative: GENERAL: Well-developed patient, in mild distress. HEAD: Atraumatic. Normocephalic. EYES: Pupils equal round and reactive. Extraocular motions intact. No scleral icterus. No injection or drainage. ENT: Nose without bleeding, purulent drainage. Throat without erythema, tonsillar hypertrophy or exudate. Airway patent. NECK: Trachea midline. Moves neck well. CARDIOVASCULAR: Regular rate and rhythm without murmurs, gallops, or rubs. RESPIRATORY: Clear to auscultation. Breath sounds equal bilaterally. No wheezes, rales, or rhonchi. GASTROINTESTINAL: Abdomen with central midline supraumbilical hernia, tenderness on exam, could not easily reduce. EXTREMITIES: No edema or joint tenderness. BACK: Nontender without deformity or crepitance. No flank tenderness. NEURO: AOx3. Motor functions grossly nonfocal. SKIN: No rash or erythema of visible areas Initial Vital Signs Initial Vital Signs: Vital Signs Temperature 97.9 F 06/26/25 16:12 Pulse Rate 90 06/26/25 16:12 Respiratory Rate 16 06/26/25 16:12 Blood Pressure 149/76 H 06/26/25 16:12 Pulse Oximetry 92 06/26/25 16:12 Oxygen Delivery Method Room Air 06/26/25 16:12 Course Orders Ordered: ED Orders 06/26/25 19:40 Urinalysis and Microscopic Stat 06/26/25 21:12 CT abdomen pelvis w con Stat Discontinued Medications Ceftriaxone Sodium 1,000 mg/ (Sodium Chloride) 100 mls @ 200 mls/hr IV NOW ONE Stop: 06/26/25 23:21 Last Infusion: 06/27/25 00:09 Dose: Infused Documented By: Admin: 06/26/25 23:38 Dose: 200 mls/hr Documented By: Metronidazole (Metronidazole 500 Mg Tablet) 500 mg PO NOW ONE Stop: 06/26/25 23:21 Last Admin: 06/26/25 23:38 Dose: 500 mg Documented By: Vital Signs Vital signs: Vital Signs - 8 hr 06/26/25 21:49 06/26/25 22:00 06/26/25 22:30 Pulse Rate 99 H 115 H 137 H Respiratory Rate 37 H 26 H 29 H Blood Pressure Pulse Oximetry 91 91 91 Oxygen Delivery Method 06/26/25 23:00 06/26/25 23:30 06/27/25 00:00 Pulse Rate 97 H 92 H 110 H Respiratory Rate 37 H 26 H 27 H Blood Pressure Pulse Oximetry 92 92 93 Oxygen Delivery Method 06/27/25 00:05 06/27/25 00:08 Pulse Rate 101 H Respiratory Rate 24 Blood Pressure 141/73 H Pulse Oximetry 92 Oxygen Delivery Method Room Air Medical Decision Making Lab Data Lab results reviewed: Yes I reviewed the patient's lab results. Lab results narrative: White blood cell count 98065, hemoglobin 10.9, platelets 678,000 elevated. Glucose 106. Normal renal function, serum CO2, potassium. Sodium 134 slight low. AST slight elevation, other liver functions unremarkable. Lipase not elevated. Troponin negative/unmeasurable. BNP 1670 mildly elevated. INR 1.2 normal. Urinalysis requested, no specimen thus far. 06/26/25 08:33 06/26/25 18:33 Labs: Lab Results 06/26/25 06/26/25 06/26/25 Range/Units 08:33 18:33 19:40 WBC 10.7 (4.5-11.0) X10^3/uL RBC 3.65 L (4.0-5.2) X10^6/uL Hgb 10.9 L (12.0-16.0) g/dL Hct 33.1 L (36-46) % MCV 90.7 (80-100) fL MCH 29.8 (26-34) PG MCHC 32.9 (30-36) % RDW 15.3 H (11.6-14.8) % Plt Count 678 H (150-400) X10^3/uL Neut % (Auto) 80.4 H (50-75) % Lymph % (Auto) 10.6 L (25-40) % [place] % (Auto) 7.8 (3-14) % Eos % (Auto) 0.8 L (2-4) % Baso % (Auto) 0.4 (0-2) % Neut # (Auto) 8600 H (0996-6558) /uL Lymph # (Auto) 1100 (3527-6666) /uL [place] # (Auto) 800 (0-900) /uL Eos # (Auto) 100 (0-450) /uL Baso # (Auto) 0 (0-100) /uL PT 13.3 H (9.4-12.5) SECONDS INR 1.2 (0.9-1.3) APTT 27 (25.1-36.5) SECONDS Sodium 134 L (137-145) mmol/L Potassium 4.1 (3.4-5.1) mmol/L Chloride 103 (98-107) mmol/L Carbon Dioxide 22 (22-32) mmol/L BUN 12 (7-17) mg/dL Creatinine 0.62 (0.52-1.04) mg/dL Estimated GFR > 60 (>60) mL/min BUN/Creatinine Ratio 19.4 (6-22) Glucose 106 H (70-99) mg/dL Calcium 8.2 L (8.4-10.2) mg/dL Magnesium 2.0 (1.6-2.3) mg/dL Total Bilirubin 1.0 (0.2-1.3) mg/dL AST 42 H (14-36) IU/L ALT 16 (<35) IU/L Alkaline Phosphatase 81 (38-126) U/L Total Creatine Kinase 23 L (30-135) U/L Troponin I < 0.012 (0.01-0.034) ng/mL NT-Pro-B Natriuret Pep 1670 H (<450) pg/mL Total Protein 7.6 (6.3-8.2) g/dL Albumin 3.4 L (3.5-5.0) g/dL Globulin 4.2 H (1.7-4.1) g/dL Albumin/Globulin Ratio 0.8 L (1.0-2.8) Lipase 19 L (23-300) U/L Urine Color Yellow Urine Appearance Sl cloudy Urine pH 5.5 (4.5-8.0) Ur Specific [place] 1.025 (1.000-1.035) Urine Protein 1+ H (Negative) Urine Glucose (UA) Negative (Negative) g/dL Urine Ketones Negative (NEGATIVE) Urine Occult Blood Negative (Negative) Urine Nitrate Negative (Negative) Urine Bilirubin Negative (NEGATIVE) Urine Urobilinogen 1.0 (0.2) E.U./dL Ur Leukocyte Esterase Negative (NEGATIVE) Urine RBC None seen (0-5/HPF) Urine WBC None seen (0-5/HPF) Ur Squamous Epith Cells 1-5 /hpf (0-5/HPF) Calcium Oxalate Crystal Few H Urine Bacteria None seen (None) Urine Mucus 2+ H (Negative) Ur Culture Indicated? Cult not indicated Vol Urine Centrifuged 10ml (spun) Imaging Data CT scan - abdomen/pelvis: Radiologist's Impression: [address] [address] [address] Scan Report Signed Patient: Tenisha Mejia MR#: [id number] : 1940 Acct:[id number] Age/Sex: 85 / F Date of Service: 06/26/25 Loc: ED Accession Number: [id number] Procedure: CT abdomen pelvis w con Ordering Provider: Nicholas Flood MD PROCEDURE: CT ABDOMEN PELVIS W CON INDICATIONS: abd pain, ventral hernia TECHNIQUE: After the administration of intravenous contrast, axial sections acquired from the lung bases to the pubic symphysis. Coronal and sagittal reformats were performed. For radiation dose reduction, the following was used: automated exposure control, adjustment of mA and/or kV according to patient size. COMPARISON: [facility], CT, CT ABDOMEN PELVIS W CON, 05/27/2025, 15:16. FINDINGS: Image quality: Suboptimal due to motion artifact. Lower Chest: Cardiomegaly. Bibasilar scarring. Large hiatal hernia. ABDOMEN: Liver: No solid mass. Gallbladder: No radiopaque gallstones or wall thickening. Biliary ducts: No biliary dilation. Pancreas: No ductal dilation. Spleen: Size is within normal limits. Adrenal Glands: No adrenal nodules. Kidneys and Ureters: No hydronephrosis. No solid mass. No complex renal cystic lesion which requires follow up. Stomach and Bowel: Long segment of wall thickening of the sigmoid colon, with pericolonic fat stranding. Diverticula are present. Colonic interposition between the liver and hemidiaphragm. Peritoneum: No abnormal intraperitoneal fluid. No free air. Ventral Wall: Ventral hernia containing a small segment of nonobstructed large bowel. Abdominal Nodes: No retroperitoneal or mesenteric adenopathy by size criteria. Vessels: Aorta and inferior vena cava are normal in size. PELVIS: Pelvic Organs: Unremarkable. Bladder: No bladder wall thickening, accounting for underdistention. Pelvic Nodes: No enlarged lymph nodes. Miscellaneous: No inguinal hernias are seen. Bones: No aggressive osseous abnormality. Scoliosis. Diffuse degenerative change. Hip arthroplasties are present. IMPRESSION: Suboptimal evaluation due to motion artifact. Long segment of sigmoid colonic wall thickening with associated pericolonic fat stranding. Findings indicate colitis. Ventral wall hernia containing nonobstructed transverse colon. Colonic interposition between the liver and hemidiaphragm, which may be symptomatic. Dictated by: Kishan Newsome M.D. on 06/26/2025 at 22:01 Approved by: Kishan Newsome M.D. on 06/26/2025 at 22:04 [facility] Narrative Medical decision making narrative: 85-year-old female with chronic back pain, urinary incontinence ongoing, known ventral hernia, has generalized abdominal pain, increase in back pain, malodorous urine. Afebrile, sirs screen negative. Ventral hernia with some mild tenderness not easily reduced. Labs pending including urinalysis requested. Keep NPO. IV Dilaudid. Anticipate CT abdominal imaging, with contrast if renal function favorable. Lab data: White blood cell count 11715, hemoglobin 10.9, platelets [id number] elevated. Glucose 106. Normal renal function, serum CO2, potassium. Sodium 134 slight low. AST slight elevation, other liver functions unremarkable. Lipase not elevated. Troponin negative/unmeasurable. BNP 1670 mildly elevated. INR 1.2 normal. Urinalysis requested, no specimen thus far. No history of contrast allergy, GFR favorable, CT abdomen and pelvis with IV contrast ordered. CT Abdone Pelvis. IMPRESSION: Suboptimal evaluation due to motion artifact. Long segment of sigmoid colonic wall thickening with associated pericolonic fat stranding. Findings indicate colitis. Ventral wall hernia containing nonobstructed transverse colon. Colonic interposition between the liver and hemidiaphragm, which may be symptomatic. See radiology report. History of ciprofloxacin and penicillin allergies. Patient had been prescribed cefdinir in the past. We will give IV ceftriaxone and oral metronidazole for colitis coverage. Will discharge on cefdinir and metronidazole, prescriptions sent to requested pharmacy. Discharged home with family. Return precautions discussed. Discharge Plan Departure Patient Disposition: Home Clinical Impression: Colitis, Abdominal wall hernia Activity Restrictions/Additional Instructions: Abdominal discomfort, known ventral abdominal wall hernia that reportedly has been evaluated by surgery who felt you were too high of a surgical risk for interventions. Clinical examination of ventral wall hernia present, not obviously reducible. Urinalysis obtained, not obvious for infection. CT abdomen and pelvis showed presence of abdominal wall hernia but no obstruction like changes at this time, did show some colitis inflammation of the large bowel segment, which might be the cause of your current discomfort. Allergies to ciprofloxacin and penicillin antibiotics. But you have taken cefdinir antibiotic in the past. We gave IV ceftriaxone similar to cefdinir class of antibiotic, which was tolerated well, and oral metronidazole, which together can hopefully cover colitis infection. Prescription for cefdinir and metronidazole course of 10 days sent to your pharmacy. Avoid alcohol while taking metronidazole, as this can in combination cause vomiting. Take antibiotics as directed. Recheck symptoms with your regular doctor on Monday. Return to this/nearest emergency department for any change worsening symptoms or concerns prior. Prescriptions: New cefdinir 300 mg capsule 300 mg PO BID 10 Days Qty: 20 0RF metronidazole 500 mg tablet 500 mg PO TID Qty: 30 0RF No Action clotrimazole 1 % cream topical BID Droxia 200 mg capsule 200 mg PO DAILY ketoconazole 2 % cream 1 applic topical losartan 50 mg tablet 50 mg PO DAILY albuterol sulfate 90 mcg/actuation HFA aerosol inhaler 2 puff inhalation Q6H PRN (Reason: shortness of breath or wheezing) Qty: 6.7 5RF Gemtesa 75 mg tablet 75 mg PO DAILY Qty: 90 3RF levothyroxine 88 mcg tablet 1 tab PO SUTUTHSA levothyroxine 100 mcg tablet 1 tab PO MOWEFR venlafaxine 37.5 mg capsule,extended release 24hr 1 cap PO QPM losartan 100 mg tablet 50 mg PO DAILY Patient Comments: TK 1 T PO QD omeprazole 20 mg capsule,delayed release(DR/EC) 200 mg PO DAILY Patient Comments: TAKE 1 CAPSULE BY MOUTH EVERY DAY 30 MINUTES BEFORE BREAKFAST pramoxine [Proctofoam] 1 % foam 1 applic ID TID Qty: 15 2RF lidocaine 5 % gel 1 ea topical BID PRN (Reason: pain) Qty: 10 0RF lactulose 20 gram/30 mL solution 20 g PO BID PRN (Reason: constipation) Qty: 1200 0RF phenazopyridine [Pyridium] 100 mg tablet 100 mg PO TID PRN (Reason: pain) Qty: 6 0RF cefdinir 300 mg capsule 300 mg PO BID Qty: 10 0RF hydrocortisone acetate [Anusol-HC] 25 mg suppository 25 mg ID BID Qty: 24 0RF Classic 28 mg iron- 800 mcg tablet PO Referrals: Floresita King PA-C [Primary Care Provider, Medical] Stand Alone Forms: Patient Portal/API
--- NOTE | 2025-06-26 21:12 | DI.CT.S_ITS ---
PROCEDURE: CT ABDOMEN PELVIS W CON INDICATIONS: abd pain, ventral hernia TECHNIQUE: After the administration of intravenous contrast, axial sections acquired from the lung bases to the pubic symphysis. Coronal and sagittal reformats were performed. For radiation dose reduction, the following was used: automated exposure control, adjustment of mA and/or kV according to patient size. COMPARISON: [facility], CT, CT ABDOMEN PELVIS W CON, 05/27/2025, 15:16. FINDINGS: Image quality: Suboptimal due to motion artifact. Lower Chest: Cardiomegaly. Bibasilar scarring. Large hiatal hernia. ABDOMEN: Liver: No solid mass. Gallbladder: No radiopaque gallstones or wall thickening. Biliary ducts: No biliary dilation. Pancreas: No ductal dilation. Spleen: Size is within normal limits. Adrenal Glands: No adrenal nodules. Kidneys and Ureters: No hydronephrosis. No solid mass. No complex renal cystic lesion which requires follow up. Stomach and Bowel: Long segment of wall thickening of the sigmoid colon, with pericolonic fat stranding. Diverticula are present. Colonic interposition between the liver and hemidiaphragm. Peritoneum: No abnormal intraperitoneal fluid. No free air. Ventral Wall: Ventral hernia containing a small segment of nonobstructed large bowel. Abdominal Nodes: No retroperitoneal or mesenteric adenopathy by size criteria. Vessels: Aorta and inferior vena cava are normal in size. PELVIS: Pelvic Organs: Unremarkable. Bladder: No bladder wall thickening, accounting for underdistention. Pelvic Nodes: No enlarged lymph nodes. Miscellaneous: No inguinal hernias are seen. Bones: No aggressive osseous abnormality. Scoliosis. Diffuse degenerative change. Hip arthroplasties are present. IMPRESSION: Suboptimal evaluation due to motion artifact. Long segment of sigmoid colonic wall thickening with associated pericolonic fat stranding. Findings indicate colitis. Ventral wall hernia containing nonobstructed transverse colon. Colonic interposition between the liver and hemidiaphragm, which may be symptomatic. Dictated by: Kishan Newsome M.D. on 06/26/2025 at 22:01 Approved by: Kishan Newsome M.D. on 06/26/2025 at 22:04
[2025-06-26 21:49] VITALS: PULSE 99; RESP 37; O2SAT 91
[2025-06-26 22:00] VITALS: PULSE 115; RESP 26; O2SAT 91
[2025-06-26 22:30] VITALS: PULSE 137; RESP 29; O2SAT 91
[2025-06-26 22:56] LABS: Appearance Urine UA SL CLOUDY; Bilirubin Urine UA NEGATIVE (NEGATIVE); Color Urine UA YELLOW; Glucose Urine UA NEGATIVE (Negative); Ketones Urine UA NEGATIVE (NEGATIVE); Leukocyte Esterase Urine UA NEGATIVE (NEGATIVE); Nitrite Urine UA NEGATIVE (Negative); Occult Blood Urine UA NEGATIVE (Negative); Protein Urine UA 1+ (Negative); Specific Gravity Urine UA 1.025 (1.000-1.035); Urobilinogen Urine UA 1.0 E.U./dL (0.2)
[2025-06-26 23:00] VITALS: PULSE 97; RESP 37; O2SAT 92
[2025-06-26 23:21] LABS: pH Urine UA 5.5 (4.5-8.0)
[2025-06-26 23:22] LABS: Culture Indicated Urine Cult Not Indicated
[2025-06-26 23:30] VITALS: PULSE 92; RESP 26; O2SAT 92
[2025-06-27] VITALS: PULSE 110; RESP 27; O2SAT 93
[2025-06-27 00:05] VITALS: PULSE 101; RESP 24; O2SAT 92
[2025-06-27 00:08] VITALS: BP 141/73
== END 2025-06-27 00:50 | disposition home or self-care (01) ==
PROVIDERS: Emergency Medicine; Emergency Provider Emergency Medicine; Family Provider Physician Assistant; PCP Physician Assistant
DX: K52.9 Noninfective gastroenteritis and colitis, unspecified (principal); K43.9 Ventral hernia without obstruction or gangrene; R32 Unspecified urinary incontinence
CPT/HCPCS: 71045; 74177; 80053; 81001; 82550; 83690; 83735; 83880; 84484; 85025; 85610; 85730; 96365; 99284; J0696; J7050; Q9967

== ENCOUNTER 2025-07-02 18:14 | Inpatient (IN) | payer MEDICARE, OTHER, SELFPAY ==
[2025-07-02] VITALS (31 sets, daily range): BP systolic 88–132; BP diastolic 55–78; PULSE 74–157; RESP 16–47; TEMP 36.1–36.6; O2SAT 93–97; BMI 51.0
--- NOTE | 2025-07-02 18:19 | DI.CT.S_ITS ---
PROCEDURE: CT STROKE INDICATIONS: Positive BE-FAST, Stroke symptoms TECHNIQUE: Noncontrast 4.5 mm thick angled axial sections acquired from the foramen magnum to the vertex, with coronal reformats. For radiation dose reduction, the following was used: automated exposure control, adjustment of mA and/or kV according to patient size. COMPARISON: None. FINDINGS: Image quality: Diagnostic. CSF spaces: Basal cisterns are patent. No extra-axial fluid collections. The ventricles are symmetric in size and shape. Brain: No intracranial bleeds or mass effect. There is cerebral volume loss, with resultant ventricular and sulcal prominence. There are periventricular and deep white matter chronic small vessel ischemic changes. There is intracranial internal carotid artery atherosclerosis. Remote bilateral lacunar infarcts. Skull and face: Calvarium and visualized facial bones appear intact, without suspicious lesions. Sinuses: Visualized sinuses and mastoids are clear. IMPRESSION: No acute intracranial pathology. Findings discussed with Dr. Reveles at 6:43 p.m. On 07/02/2025. This study fulfills neurological imaging criteria for inclusion or exclusion of acute stroke therapies based on available published neurological guidelines. Dictated by: Kishan Newsome M.D. on 07/02/2025 at 18:41 Approved by: Kishan Newsome M.D. on 07/02/2025 at 18:43
--- NOTE | 2025-07-02 18:19 | DI.RAD.S_ITS ---
PROCEDURE: XR CHEST 1V INDICATIONS: Possible stroke TECHNIQUE: One view of the chest was acquired. COMPARISON: [facility], CR, XR CHEST 1V, 06/26/2025, 18:02. [facility], CR, XR CHEST 2V, 12/07/2022, 17:09. FINDINGS: Surgical changes and devices: Right chest wall surgical clips. Lungs and pleura: Lungs are clear. No pleural effusions or pneumothorax. Mediastinum: Mediastinal contours appear normal. Heart size is enlarged. Bones and chest wall: No suspicious bony lesions. Overlying soft tissues appear unremarkable. IMPRESSION: No acute cardiopulmonary abnormality is seen. Dictated by: Kishan Newsome M.D. on 07/02/2025 at 18:48 Approved by: Kishan Nwesome M.D. on 07/02/2025 at 18:48
--- NOTE | 2025-07-02 18:19 | DI.CT.S_ITS ---
PROCEDURE: CT ANGIO HEAD AND NECK INDICATIONS: r/o stroke TECHNIQUE: After the administration of intravenous contrast, 1 mm thick sections acquired from the aortic arch through the [place] of [place]. 3-dimensional rkgfbsf-vkcqeionp-jukscfpxgm (MIP) and/or volume rendering reformats were acquired of the central intracranial vasculature and neck separately. For radiation dose reduction, the following was used: automated exposure control, adjustment of mA and/or kV according to patient size. COMPARISON: [facility], CT, CT ANGIO HEAD AND NECK, 07/13/2018, 10:58. FINDINGS: Image quality: Diagnostic. Cerebral CT Angiogram: Internal carotid arteries: No acute findings. Intracranial ICA are patent with no significant stenosis. No occlusion. No aneurysm. Anterior cerebral arteries: Unremarkable. No significant stenosis. No occlusion. No aneurysm. Middle cerebral arteries: Unremarkable. No significant stenosis. No occlusion. No aneurysm. Posterior cerebral arteries: Unremarkable. No significant stenosis. No occlusion. No aneurysm. Basilar artery: Unremarkable. No significant stenosis. No occlusion. No aneurysm. Vertebral arteries: Unremarkable as visualized. Dural venous sinuses: Unremarkable given phase of enhancement. Other: Arterial phase appearance of the brain parenchyma is unremarkable. Neck CT Angiogram: Internal carotid arteries: Unremarkable. No significant stenosis. No dissection or occlusion. Common carotid arteries: Unremarkable. No significant stenosis. No dissection or occlusion. External carotid arteries: Unremarkable. No occlusion. Vertebral arteries: Unremarkable. No significant stenosis. No dissection or occlusion. Aortic Arch and Mediastinum: Partially visualized aortic arch unremarkable without evidence of aneurysm. Origins of the great vessels unremarkable. Other: Arterial phase soft tissues of the neck and chest are unremarkable. IMPRESSION: No significant intracranial arterial abnormality is seen. No significant abnormality is seen within the arteries of the neck. Any quantitative measurements of stenosis were performed using NASCET criteria. Dictated by: Kishan Newsome M.D. on 07/02/2025 at 18:43 Approved by: Kishan Newsome M.D. on 07/02/2025 at 18:46
--- OUTSIDE RECORDS SUMMARY | 2025-07-02 18:42 | XMS_ITS | Encounter Summary ---
Author Organization [facility] Address [address] [place] [id number] Care Team Providers Care Arts Education Teacher Name Role Phone Conchita Felipe PA-C Primary Care Provider [phone] Reason for Referral * Specialty Services (Routine) - Closed Specialty Diagnoses / Procedures Referred By Angelia t Referred To Contact Neurology Diagnoses Cerebellar infarction (CMS/HCC) Procedures [place] OFFICE/OUTPT VISIT,EST,LEVL IV Conchita Felipe PA-C [address] [place] [address] Phone: tel: fax: Reji Pate MD Referral ID Status Reason Start Date Expiration Date Visits Re quested Visits Authorized [id number] Closed 07/26/2018 07/27/2019 1 1 Encounter Details Date Type Department Care Team (Latest Contact Info) Description 07/27/2018 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 - [facility] [id number] [place] [id number] Conchita Felipe PA-C [address] [place] [address] Cerebellar infarction (CMS/HCC) Social History Tobacco Use Types Packs/Day Years Used Date Smoking Tobacco: Never Assessed Comments Unknown Sex and Gender Information Value Date Recorded Sex Assigned at Not on file Legal Sex Female 1:15 AM PDT Gender Identity Not on file Sexual Orientation Not on file documented as of this encounter Plan of Treatment Scheduled Referrals Name Type Priority Associated Diagnoses Orde r Schedule *Int- (Neurology) [facility] Outpatient Referral Routine Cerebellar infarction (CMS/HCC) Ordered: 07/27/2018 documented as of this encounter Visit Diagnoses Diagnosis 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
--- NOTE | 2025-07-02 19:13 | ED.AMS ---
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 Patient denies headache, dizziness, chest abdomen back pain, urinary complaints cough sore throat vomiting diarrhea abdominal pain. Other than what is stated 14 pt ROS is negative. Related Data Home Medications ?Medication ?Instructions ?Recorded ?Confirmed levothyroxine 100 mcg tablet 1 tab PO MOWEFR 01/10/18 10/18/24 levothyroxine 88 mcg tablet 1 tab PO SUTUTHSA 01/10/18 10/18/24 venlafaxine 37.5 mg 1 cap PO QPM 01/10/18 10/18/24 capsule,extended release 24 hr omeprazole 20 mg capsule,delayed 200 mg PO DAILY 03/04/22 10/18/24 release losartan 100 mg tablet 50 mg PO DAILY 02/24/23 10/18/24 vits no.126-ferrous fum tab PO 05/01/24 10/18/24 28 mg iron-folic acid 800 mcg tablet (Classic ) clotrimazole 1 % topical cream applic topical BID 10/18/24 10/18/24 hydroxyurea (sickle cell) 200 mg 200 mg PO DAILY 10/18/24 10/18/24 capsule (Droxia) ketoconazole 2 % topical cream 1 applic topical 10/18/24 10/18/24 losartan 50 mg tablet 50 mg PO DAILY 10/18/24 10/18/24 Previous Rx's ?Medication ?Instructions ?Recorded albuterol sulfate 90 mcg/actuation 2 puff inhalation Q6H PRN 03/01/23 aerosol inhaler shortness of breath or wheezing #6.7 grams lidocaine 5 % topical gel 1 ea topical BID PRN pain #10 grams 04/05/24 pramoxine 1 % topical foam 1 applic VA TID #15 grams 04/05/24 (Proctofoam) lactulose 20 gram/30 mL oral 20 g (30 mL) PO BID PRN 05/04/24 solution constipation #1,200 mL vibegron 75 mg tablet (Gemtesa) 75 mg PO DAILY #90 tabs 10/09/24 cefdinir 300 mg capsule 300 mg PO BID #10 caps 05/27/25 hydrocortisone acetate 25 mg 25 mg VA BID #24 ea 05/27/25 rectal suppository (Anusol-HC) phenazopyridine 100 mg tablet 100 mg PO TID PRN pain 6 doses #6 05/27/25 (Pyridium) tabs cefdinir 300 mg capsule 300 mg PO BID 10 days #20 caps 06/27/25 metronidazole 500 mg tablet 500 mg PO TID #30 tabs 06/27/25 Allergies Allergy/AdvReac Type Severity Reaction Status Date / Time Penicillins (PENICILLINS) Allergy Severe LESIONS IN Verified 07/02/25 19:10 HER MOUTH ciprofloxacin (CIPROFLOXACIN) Allergy Intermediate tongue Verified 07/02/25 19:10 inflammation Review of Systems Review of Systems ROS Unobtainable: All systems reviewed & are unremarkable except as noted in HPI and below Patient History Medical History Incontinence of urine Incontinence Hx of cancer antigen 125 (CA-125) measurement Cancer Pulmonary nodules CVA (cerebral vascular accident) Stroke Surgical History Hx of breast biopsy History of hip replacement Family History Father Hypertension Heart disease Mother Breast cancer Social History marital status: household members: spouse lives independently: Yes occupational status: previously employed alcohol intake: current substance use type: does not use and unknown alcohol intake frequency: a few times a month Exam Narrative Exam Narrative: GENERAL: [85 year old patient appears stated age. Well-developed patient, in mild distress. HEAD: Atraumatic. Normocephalic. EYES: Pupils equal round and reactive. Extraocular motions intact. No scleral icterus. No injection or drainage. ENT: Nose without bleeding, purulent drainage. Throat without erythema, tonsillar hypertrophy or exudate. Airway patent. NECK: Trachea midline. Non tender CARDIOVASCULAR: tachycardic irregularly irregular RESPIRATORY: Clear to auscultation. Breath sounds equal bilaterally. No wheezes, rales, or rhonchi. GASTROINTESTINAL: Abdomen soft, non-tender, nondistended. EXTREMITIES: No edema or joint tenderness. BACK: Nontender without deformity or crepitance. No flank tenderness. NEURO: AOx3. SKIN: No rash or erythema of visible areas Initial Vital Signs Initial Vital Signs: Vital Signs Temperature 97 F L 07/02/25 18:15 Pulse Rate 157 H 07/02/25 18:15 Respiratory Rate 28 H 07/02/25 18:15 Blood Pressure 132/74 07/02/25 18:15 Pulse Oximetry 95 07/02/25 18:15 Oxygen Delivery Method Nasal Cannula 07/02/25 18:15 Oxygen Flow Rate 5 07/02/25 18:15 Course Orders Ordered: ED Orders 07/02/25 18:[address] angio head and neck Stat XR chest 1V Stat EKG-12 Lead Stat 07/02/25 19:08 BNP [NT-proBNP (BNP-Adult 18+)] Stat Complete Blood Count AUTO DIFF Stat Comprehensive Metabolic Panel Stat Lactate (Lactic Acid) Stat PTT Partial Thromboplastin [place] Stat Prothrombin Time INR Stat Troponin & CK Cardiac Panel Stat 07/02/25 19:25 CT angio chest PE protocol Stat 07/02/25 19:28 Venous Blood Gas STAT 07/02/25 19:30 TSH [Thyroid Stimulating Hormone] Stat 07/02/25 20:09 Blood Culture Stat 07/02/25 21:02 Urine Drug Screen, Rapid Stat 07/02/25 21:07 Ictotest Urine Stat Urine Culture Stat Urine Microscopic Stat 07/02/25 21:28 Troponin I Stat 07/02/25 21:59 Venous Blood Gas Routine 07/02/25 22:55 Consult to Occupational Therapy Evaluate & Treat Consult to Physical Therapy Evaluate & Treat 07/03/25 06:00 Basic Metabolic Panel DAILY Complete Blood Count AUTO DIFF DAILY Acetaminophen (Acetaminophen 325 Mg Tablet) 650 mg PO Q6H PRN PRN Reason: Fever/Mild Pain (1-3) Apixaban (Apixaban 5 Mg Tablet) 5 mg PO BID PAIGE Diltiazem HCl 125 mg/ Sodium (Chloride) 125 mls @ 5 mls/hr IV TITRATE PAIGE; Protocol Last Admin: 07/02/25 22:17 Dose: 5 mg/hr, 5 mls/hr Documented By: AB Ceftriaxone Sodium 1,000 mg/ (Sodium Chloride) 100 mls @ 200 mls/hr IV Q24H [facility] Naloxone HCl (Naloxone 0.4 Mg/Ml Vial) 0.2 mg IV Q2MIN PRN PRN Reason: Opiate Reversal Ondansetron HCl (Ondansetron 4 Mg/2 Ml Inj) 4 mg IV NOW PRN PRN Reason: Nausea And Vomiting Ondansetron HCl (Ondansetron 4 Mg Odt) 4 mg PO NOW PRN PRN Reason: Nausea And Vomiting Ondansetron HCl (Ondansetron 4 Mg/2 Ml Inj) 4 mg IV Q8HR PRN PRN Reason: Nausea And Vomiting Discontinued Medications Apixaban (Apixaban 5 Mg Tablet) 5 mg PO NOW ONE Stop: 07/02/25 22:29 Last Admin: 07/02/25 22:58 Dose: 5 mg Documented By: GWENDOLYN Diltiazem HCl (Diltiazem 25 Mg/5 Ml Sdv) 25 mg IV NOW ONE Stop: 07/02/25 19:25 Last Admin: 07/02/25 19:38 Dose: 25 mg Documented By: GWENDOLYN Ceftriaxone Sodium 2,000 mg/ (Sodium Chloride) 100 mls @ 200 mls/hr IV NOW ONE Stop: 07/02/25 22:00 Last Admin: 07/02/25 22:19 Dose: 200 mls/hr Documented By: GWENDOLYN Olanzapine (Olanzapine 10 Mg Vial) 5 mg IM NOW ONE Stop: 07/03/25 00:13 Last Admin: 07/03/25 00:21 Dose: 5 mg Documented By: GWENDOLYN Vital Signs Vital signs: Vital Signs - 8 hr 07/02/25 19:38 07/02/25 19:50 07/02/25 20:04 Temperature Pulse Rate 151 H 107 H 109 H Respiratory Rate 16 16 Blood Pressure 123/60 107/55 L 117/56 L Pulse Oximetry 93 Oxygen Delivery Method Nasal Cannula Nasal Cannula Oxygen Flow Rate 5 5 07/02/25 20:04 07/02/25 20:15 07/02/25 20:15 Temperature Pulse Rate 111 H 111 H Respiratory Rate 26 H 25 H Blood Pressure 123/59 L Pulse Oximetry 93 94 Oxygen Delivery Method Nasal Cannula Oxygen Flow Rate 5 07/02/25 20:30 07/02/25 20:30 07/02/25 20:45 Temperature Pulse Rate 112 H 115 H Respiratory Rate 24 22 Blood Pressure 106/64 Pulse Oximetry 94 93 Oxygen Delivery Method Oxygen Flow Rate 07/02/25 20:45 07/02/25 21:00 07/02/25 21:00 Temperature Pulse Rate 128 H Respiratory Rate 22 Blood Pressure 102/61 119/71 Pulse Oximetry 94 Oxygen Delivery Method Nasal Cannula Oxygen Flow Rate 5 07/02/25 21:15 07/02/25 21:15 07/02/25 21:30 Temperature Pulse Rate 129 H 131 H Respiratory Rate 38 H 34 H Blood Pressure 97/58 L Pulse Oximetry 95 95 Oxygen Delivery Method Oxygen Flow Rate 07/02/25 21:30 07/02/25 21:45 07/02/25 21:45 Temperature Pulse Rate 131 H Respiratory Rate 30 H Blood Pressure 118/61 117/57 L Pulse Oximetry 95 Oxygen Delivery Method Nasal Cannula Oxygen Flow Rate 5 07/02/25 22:00 07/02/25 22:00 07/02/25 22:15 Temperature Pulse Rate 137 H 142 H Respiratory Rate 35 H 29 H Blood Pressure 115/64 Pulse Oximetry 96 96 Oxygen Delivery Method Oxygen Flow Rate 07/02/25 22:15 07/02/25 22:30 07/02/25 22:30 Temperature Pulse Rate 130 H Respiratory Rate 27 H Blood Pressure 108/56 L 101/56 L Pulse Oximetry 97 Oxygen Delivery Method Nasal Cannula Oxygen Flow Rate 5 07/02/25 22:40 07/02/25 22:40 07/02/25 22:42 Temperature Pulse Rate 138 H Respiratory Rate 27 H Blood Pressure 88/59 L 96/68 Pulse Oximetry 95 Oxygen Delivery Method Nasal Cannula Oxygen Flow Rate 5 07/02/25 22:42 07/02/25 22:45 07/02/25 22:45 Temperature Pulse Rate 139 H 128 H Respiratory Rate 29 H 26 H Blood Pressure 104/58 L Pulse Oximetry 95 96 Oxygen Delivery Method Oxygen Flow Rate 07/02/25 22:50 07/02/25 22:50 07/02/25 22:52 Temperature 98 F Pulse Rate 123 H 74 Respiratory Rate 26 H 24 Blood Pressure 98/60 104/55 L Pulse Oximetry 96 93 Oxygen Delivery Method Oxygen Flow Rate 3 07/02/25 22:55 07/02/25 22:55 07/02/25 23:00 Temperature Pulse Rate 124 H 126 H Respiratory Rate 26 H 25 H Blood Pressure 95/61 Pulse Oximetry 97 97 Oxygen Delivery Method Oxygen Flow Rate 07/02/25 23:00 Temperature Pulse Rate Respiratory Rate Blood Pressure 104/56 L Pulse Oximetry Oxygen Delivery Method Oxygen Flow Rate MDM - Altered Mental Status Lab Data 07/02/25 19:08 07/02/25 19:08 Labs: Lab Results 07/02/25 07/02/25 07/02/25 Range/Units 19:08 19:08 19:30 WBC 12.1 H (4.5-11.0) X10^3/uL RBC 3.77 L (4.0-5.2) X10^6/uL Hgb 10.9 L (12.0-16.0) g/dL Hct 34.2 L (36-46) % MCV 90.8 (80-100) fL MCH 28.8 (26-34) PG MCHC 31.8 (30-36) % RDW 16.4 H (11.6-14.8) % Plt Count 644 H (150-400) X10^3/uL Neut % (Auto) 93.5 H (50-75) % Lymph % (Auto) 3.4 L (25-40) % [place] % (Auto) 3.0 (3-14) % Eos % (Auto) 0.0 L (2-4) % Baso % (Auto) 0.1 (0-2) % Neut # (Auto) 68913 H (0687-4628) /uL Lymph # (Auto) 400 L (8079-7398) /uL [place] # (Auto) 400 (0-900) /uL Eos # (Auto) 0 (0-450) /uL Baso # (Auto) 0 (0-100) /uL PT 16.0 H (9.4-12.5) SECONDS INR 1.4 H (0.9-1.3) APTT 30 (25.1-36.5) SECONDS VBG pH (7.33-7.43) VBG pCO2 (45-50) mmHg VBG pO2 (35-45) mmHg VBG HCO3 (24-28) mmol/L VBG Total CO2 (24-29) mmol/L VBG O2 Saturation (70-75) % VBG Base Excess (0-4) mmol/L FiO2 % % Sodium 133 L (137-145) mmol/L Potassium 3.4 (3.4-5.1) mmol/L Chloride 97 L (98-107) mmol/L Carbon Dioxide 28 (22-32) mmol/L BUN 16 (7-17) mg/dL Creatinine 0.89 (0.52-1.04) mg/dL Estimated GFR > 60 (>60) mL/min BUN/Creatinine Ratio 18.0 (6-22) Glucose 101 H (70-99) mg/dL Lactate 1.9 (0.7-2.1) mmol/L Calcium 8.4 (8.4-10.2) mg/dL Total Bilirubin 0.5 (0.2-1.3) mg/dL AST 96 H (14-36) IU/L ALT 27 (<35) IU/L Alkaline Phosphatase 115 (38-126) U/L Total Creatine Kinase 322 H D (30-135) U/L Troponin I 0.119 H Cancelled (0.01-0.034) ng/mL NT-Pro-B Natriuret Pep 7560 H (<450) pg/mL Total Protein 6.9 (6.3-8.2) g/dL Albumin 3.2 L (3.5-5.0) g/dL Globulin 3.7 (1.7-4.1) g/dL Albumin/Globulin Ratio 0.9 L (1.0-2.8) TSH 0.704 (0.47-4.68) uIU/mL 07/02/25 07/02/25 Range/Units 21:28 21:59 WBC (4.5-11.0) X10^3/uL RBC (4.0-5.2) X10^6/uL Hgb (12.0-16.0) g/dL Hct (36-46) % MCV (80-100) fL MCH (26-34) PG MCHC (30-36) % RDW (11.6-14.8) % Plt Count (150-400) X10^3/uL Neut % (Auto) (50-75) % Lymph % (Auto) (25-40) % [place] % (Auto) (3-14) % Eos % (Auto) (2-4) % Baso % (Auto) (0-2) % Neut # (Auto) (0564-6037) /uL Lymph # (Auto) (9519-9371) /uL [place] # (Auto) (0-900) /uL Eos # (Auto) (0-450) /uL Baso # (Auto) (0-100) /uL PT (9.4-12.5) SECONDS INR (0.9-1.3) APTT (25.1-36.5) SECONDS VBG pH 7.54 H (7.33-7.43) VBG pCO2 31.0 L (45-50) mmHg VBG pO2 109 H (35-45) mmHg VBG HCO3 27 (24-28) mmol/L VBG Total CO2 25 (24-29) mmol/L VBG O2 Saturation 99 H (70-75) % VBG Base Excess 4.2 H (0-4) mmol/L FiO2 % 40.0 % % Sodium (137-145) mmol/L Potassium (3.4-5.1) mmol/L Chloride (98-107) mmol/L Carbon Dioxide (22-32) mmol/L BUN (7-17) mg/dL Creatinine (0.52-1.04) mg/dL Estimated GFR (>60) mL/min BUN/Creatinine Ratio (6-22) Glucose (70-99) mg/dL Lactate (0.7-2.1) mmol/L Calcium (8.4-10.2) mg/dL Total Bilirubin (0.2-1.3) mg/dL AST (14-36) IU/L ALT (<35) IU/L Alkaline Phosphatase (38-126) U/L Total Creatine Kinase (30-135) U/L Troponin I 0.103 H (0.01-0.034) ng/mL NT-Pro-B Natriuret Pep (<450) pg/mL Total Protein (6.3-8.2) g/dL Albumin (3.5-5.0) g/dL Globulin (1.7-4.1) g/dL Albumin/Globulin Ratio (1.0-2.8) TSH (0.47-4.68) uIU/mL Point of Care Testing Glucose POC 116 Urine Dip Bedside Urine Glucose Negative Bedside Urine Bilirubin + 1 Bedside Urine Ketone +/- 5 Urine Specific Donald 1.015 Bedside Urine Occult Blood + Bedside Urine pH 6.0 Bedside Urine Protein + 30 Bedside Urine Urobilinogen - Negative Bedside Urine Nitrite + Positive Bedside Urine Leukocytes + [address] scan - chest: Radiologist's Impression: [address] [address] [address] Scan Report Signed Patient: Tenisha Mejia MR#: [id number] : 1940 Acct:[id number] Age/Sex: 85 / F Date of Service: 07/02/25 Loc: ED Accession Number: [id number] Procedure: CT angio chest PE protocol Ordering Provider: Freddy Reveles D.O. PROCEDURE: CT ANGIO CHEST PE PROTOCOL INDICATIONS: low 02 TECHNIQUE: After the administration of intravenous contrast, 2 mm thick sections acquired from the pulmonary apices to the posterior costophrenic angles. 3-dimensional maximum intensity projection (MIP) coronal and sagittal reformats were then acquired through the thorax. For radiation dose reduction, the following was used: automated exposure control, adjustment of mA and/or kV according to patient size. COMPARISON: [facility], CT, CT ANGIO CHEST PE PROTOCOL, 12/09/2022, 14:05. FINDINGS: Image quality: Diagnostic. Pulmonary arteries: Pulmonary arteries are normal in size, and demonstrate no intraluminal filling defects to suggest central pulmonary embolism. Lower Neck: No enlarged lymph nodes. Thyroid: No thyroid nodules which require sonographic follow up, per consensus guidelines. Axillae: No enlarged lymph nodes. Chest Wall: Post surgical change in the right chest wall. Bones: Degenerative changes. No aggressive osseous lesion. Lungs and Pleura: Mildly motion degraded evaluation. Trace bilateral pleural effusions with associated basilar atelectasis. No focal consolidation wtihin study limitations. No pneumothorax. Heart: Heart size is normal. No pericardial effusion. Thoracic Vessels: No aortic aneurysm. Mediastinum and Josie: No enlarged lymph nodes. Esophagus: Fluid within the thoracic esophagus. Large hiatal hernia. Upper Abdomen: Stone versus retained contrast within the collecting system of the left upper pole kidney. Visualized upper abdomen solid organs and bowel loops appear otherwise normal. IMPRESSION: Mildly motion degraded examination. Within limiations: No pulmonary embolus. Trace bilateral pleural effusions with associated basilar atelectasis. Dictated by: Jeff Aguilar M.D. on 07/02/2025 at 20:04 Approved by: Jeff Aguilar M.D. on 07/02/2025 at 20:13 CTA - brain/neck: Radiologist's Impression: [address] [address] [address] Scan Report Signed Patient: Tenisha Mejia MR#: [id number] : 1940 Acct:[id number] Age/Sex: 85 / F Date of Service: 07/02/25 Loc: ED Accession Number: [id number] Procedure: CT angio head and neck Ordering Provider: Freddy Reveles D.O. PROCEDURE: CT ANGIO HEAD AND NECK INDICATIONS: r/o stroke TECHNIQUE: After the administration of intravenous contrast, 1 mm thick sections acquired from the aortic arch through the [place]. 3-dimensional tbfgwcz-jrsljiofl-zyzocorhqb (MIP) and/or volume rendering reformats were acquired of the central intracranial vasculature and neck separately. For radiation dose reduction, the following was used: automated exposure control, adjustment of mA and/or kV according to patient size. COMPARISON: [facility], CT, CT ANGIO HEAD AND NECK, 07/13/2018, 10:58. FINDINGS: Image quality: Diagnostic. Cerebral CT Angiogram: Internal carotid arteries: No acute findings. Intracranial ICA are patent with no significant stenosis. No occlusion. No aneurysm. Anterior cerebral arteries: Unremarkable. No significant stenosis. No occlusion. No aneurysm. Middle cerebral arteries: Unremarkable. No significant stenosis. No occlusion. No aneurysm. Posterior cerebral arteries: Unremarkable. No significant stenosis. No occlusion. No aneurysm. Basilar artery: Unremarkable. No significant stenosis. No occlusion. No aneurysm. Vertebral arteries: Unremarkable as visualized. Dural venous sinuses: Unremarkable given phase of enhancement. Other: Arterial phase appearance of the brain parenchyma is unremarkable. Neck CT Angiogram: Internal carotid arteries: Unremarkable. No significant stenosis. No dissection or occlusion. Common carotid arteries: Unremarkable. No significant stenosis. No dissection or occlusion. External carotid arteries: Unremarkable. No occlusion. Vertebral arteries: Unremarkable. No significant stenosis. No dissection or occlusion. Aortic Arch and Mediastinum: Partially visualized aortic arch unremarkable without evidence of aneurysm. Origins of the great vessels unremarkable. Other: Arterial phase soft tissues of the neck and chest are unremarkable. IMPRESSION: No significant intracranial arterial abnormality is seen. No significant abnormality is seen within the arteries of the neck. Any quantitative measurements of stenosis were performed using NASCET criteria. Dictated by: Kishan Newsome M.D. on 07/02/2025 at 18:43 Approved by: Kishan Newsome M.D. on 07/02/2025 at 18:46 CT scan - head: Radiologist's Impression: [address] [address] [address] Scan Report Signed Patient: Tenisha Mejia MR#: [id number] : 1940 Acct:[id number] Age/Sex: 85 / F Date of Service: 07/02/25 Loc: ED Accession Number: [id number] Procedure: CT Stroke Ordering Provider: Freddy Reveles D.O. PROCEDURE: CT STROKE INDICATIONS: Positive BE-FAST, Stroke symptoms TECHNIQUE: Noncontrast 4.5 mm thick angled axial sections acquired from the foramen magnum to the vertex, with coronal reformats. For radiation dose reduction, the following was used: automated exposure control, adjustment of mA and/or kV according to patient size. COMPARISON: None. FINDINGS: Image quality: Diagnostic. CSF spaces: Basal cisterns are patent. No extra-axial fluid collections. The ventricles are symmetric in size and shape. Brain: No intracranial bleeds or mass effect. There is cerebral volume loss, with resultant ventricular and sulcal prominence. There are periventricular and deep white matter chronic small vessel ischemic changes. There is intracranial internal carotid artery atherosclerosis. Remote bilateral lacunar infarcts. Skull and face: Calvarium and visualized facial bones appear intact, without suspicious lesions. Sinuses: Visualized sinuses and mastoids are clear. IMPRESSION: No acute intracranial pathology. Findings discussed with Dr. Reveles at 6:43 p.m. On 07/02/2025. This study fulfills neurological imaging criteria for inclusion or exclusion of acute stroke therapies based on available published neurological guidelines. Dictated by: Kishan Newsome M.D. 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 Pt given rocephin 2g IV, eliquis, diltiazem 25mg IV x 1 which rate went down to 100 briefly then went back up to 130s started on dilt drip 5mg/hr. Wbc 12.1 hg 10.9 plt 644 inr 1.4. Glu 101, lactate 1.9 trop 0.119 and 2nd set 0.103, BNP 7560, TSh 0.704. UA + nitrite +leuk + blood. CT head and ct head and neck showed no acute process. Cxr. no acute process. CTA chest no PE. Trace b/l pleural effusions with associated basilar atelectasis. Case d/w to start eliquis and continue diltiazem drip. Case d/w hospitalist for admission. Differential dx sepsis, uti, pneumonia, stemi, nstemi, cva, tia, hemorrage, aneurysm. Discharge Plan Departure Patient Disposition: Admitted As Inpatient Clinical Impression: Atrial fibrillation with rapid ventricular response, Acute UTI Admit Date/Time: 07/02/25 23:03 Admit Provider: Gamaliel Lopez
--- NOTE | 2025-07-02 19:14 | EKG_ITS ---
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
--- NOTE | 2025-07-02 19:25 | DI.CT.S_ITS ---
PROCEDURE: CT ANGIO CHEST PE PROTOCOL INDICATIONS: low 02 TECHNIQUE: After the administration of intravenous contrast, 2 mm thick sections acquired from the pulmonary apices to the posterior costophrenic angles. 3-dimensional maximum intensity projection (MIP) coronal and sagittal reformats were then acquired through the thorax. For radiation dose reduction, the following was used: automated exposure control, adjustment of mA and/or kV according to patient size. COMPARISON: [facility], CT, CT ANGIO CHEST PE PROTOCOL, 12/09/2022, 14:05. FINDINGS: Image quality: Diagnostic. Pulmonary arteries: Pulmonary arteries are normal in size, and demonstrate no intraluminal filling defects to suggest central pulmonary embolism. Lower Neck: No enlarged lymph nodes. Thyroid: No thyroid nodules which require sonographic follow up, per consensus guidelines. Axillae: No enlarged lymph nodes. Chest Wall: Post surgical change in the right chest wall. Bones: Degenerative changes. No aggressive osseous lesion. Lungs and Pleura: Mildly motion degraded evaluation. Trace bilateral pleural effusions with associated basilar atelectasis. No focal consolidation wtihin study limitations. No pneumothorax. Heart: Heart size is normal. No pericardial effusion. Thoracic Vessels: No aortic aneurysm. Mediastinum and Josie: No enlarged lymph nodes. Esophagus: Fluid within the thoracic esophagus. Large hiatal hernia. Upper Abdomen: Stone versus retained contrast within the collecting system of the left upper pole kidney. Visualized upper abdomen solid organs and bowel loops appear otherwise normal. IMPRESSION: Mildly motion degraded examination. Within limiations: No pulmonary embolus. Trace bilateral pleural effusions with associated basilar atelectasis. Dictated by: Jeff Aguilar M.D. on 07/02/2025 at 20:04 Approved by: Jeff Aguilar M.D. on 07/02/2025 at 20:13
[2025-07-02 19:42] LABS: Add Manual Diff / Slide Review NO; Hematocrit 34.2 % (36-46); Hemoglobin 10.9 g/dL (12.0-16.0); Lymphocytes Absolute Auto 400 /uL (1100-4500); Mean Corpuscular HGB Conc 31.8 % (30-36); Mean Corpuscular Hemoglobin 28.8 PG (26-34); Mean Corpuscular Volume 90.8 fL (80-100); Platelet Count 644 X10^3/uL (150-400)
[2025-07-02 19:50] LABS: INR 1.4 (0.9-1.3); Prothrombin Time 16.0 SECONDS (9.4-12.5)
[2025-07-02 19:52] LABS: PTT Partial Thromboplastin Tim 30 SECONDS (25.1-36.5)
[2025-07-02 19:57] LABS: Alanine Aminotransferase 27 IU/L (<35); Albumin 3.2 g/dL (3.5-5.0); Albumin Globulin Ratio 0.9 (1.0-2.8); Alkaline Phosphatase 115 U/L (38-126); Blood Urea Nitrogen 16 mg/dL (7-17); Calcium 8.4 mg/dL (8.4-10.2); Carbon Dioxide 28 mmol/L (22-32); Chloride 97 mmol/L (98-107); Creatine Kinase 322 U/L (30-135); Estimated Glomerular Filt Rate > 60 mL/min (>60); Globulin 3.7 g/dL (1.7-4.1); Glucose 101 mg/dL (70-99); HEMOLYSIS < 15 (0-50); Lactate (Lactic Acid) 1.9 mmol/L (0.7-2.1); Potassium 3.4 mmol/L (3.4-5.1); Sodium 133 mmol/L (137-145); Total Protein 6.9 g/dL (6.3-8.2)
[2025-07-02 20:08] LABS: NT-proBNP (BNP-Adult 18+) 7560 pg/mL (<450)
[2025-07-02 20:09] LABS: Troponin I 0.119 ng/mL (0.01-0.034)
--- NOTE | 2025-07-02 21:53 | PC.NURSE ---
RT called for vbg, RT aware and will complete when available.
[2025-07-02 22:02] LABS: Troponin I 0.103 ng/mL (0.01-0.034)
[2025-07-02 22:02] LABS: Base Excess VBG 4.2 mmol/L (0-4); HCO3 VBG 27 mmol/L (24-28); Oxygen Saturation VBG 99 % (70-75); PCO2 VBG 31.0 mmHg (45-50); PO2 VBG 109 mmHg (35-45); Total CO2 VBG 25 mmol/L (24-29); pH VBG 7.54 (7.33-7.43)
[2025-07-02] MEDS: cefTRIAXone 2,000 MG in SODIUM CHLORIDE 0.9% 100 ML 200 MG IV (22:19)
[2025-07-02] MEDS: APIXABAN 5 MG TABLET PO (22:58)
[2025-07-02 23:51] LABS: Thyroid Stimulating Hormone 0.704 uIU/mL (0.47-4.68)
[2025-07-03] VITALS (57 sets, daily range): BP systolic 86–134; BP diastolic 50–77; PULSE 76–137; RESP 22–40; TEMP 36.2–36.6; O2SAT 89–98; BMI 51.0
[2025-07-03] MEDS: OLANZapine 10 MG VIAL 5 MG IM (00:21)
--- NOTE | 2025-07-03 00:52 | PC.NURSE ---
Report given to STAN Song
[2025-07-03 03:08] LABS: MRSA (Nasal) PCR NOT DETECTED (Not Detect)
--- NOTE | 2025-07-03 05:44 | PC.NURSE ---
Patient alert, answer questions appropriately, forgetful at times but easily redirected, right facial droop resolved, speech garbled at times but otherwise able to speak clearly, left leg drift down more than right leg. Diltiazem drip ongoing at 10 mg/hr.
--- NOTE | 2025-07-03 06:53 | P.HP_ITS ---
History of Present Illness History of Present Illness Date Patient Seen: 07/02/25 Time Patient Seen: 23:50 Chief complaint: Weakness/slurred speach Narrative: 85-year-old female with past medical history of multiple CVAs past on Aggrenox but did not take her dose today, hypothyroidism, depression, hypertension and known pulm nodules presents with reported right facial drooping, confusion, slurred speech and some difficulty ambulating. Per report the patient started to have these new symptoms yesterday. The patient's states that she does have intermittent confusion over the last month or so today seems to be worse than usual. Otherwise no report of any recent fever, chills, nausea, vomiting, diarrhea, chest pain or shortness of. There is no report of focal weakness as well. In the emergency room, the patient was hemodynamically stable. The patient however was requiring 4 to 5 L oxygen per nasal cannula. Lab shows a WBC of 12 hemoglobin of 10, I am seeing 133 troponin initially 0.11 but repeat was 0.10. BNP level was 7560. UA was positive for UTI. CT angio of the head and neck shows no signs of acute stroke. Patient did have atrial fibrillation with RVR. CT angio of the chest shows no PE or signs of pneumonia. Dr. Desir of cardiology recommend to start Eliquis and continue diltiazem drip. Patient mentation did improve and close to normal per the patient's hospital. [facility] Medical History Incontinence of urine Incontinence Hx of cancer antigen 125 (CA-125) measurement Cancer Pulmonary nodules CVA (cerebral vascular accident) Stroke Surgical History Hx of breast biopsy History of hip replacement Family History Father Hypertension Heart disease Mother Breast cancer Social History marital status: household members: spouse lives independently: Yes occupational status: previously employed Smoking Status: Unknown if ever smoked alcohol intake: current substance use type: does not use and unknown Meds Home Medications and Allergies Home Medications ?Medication ?Instructions ?Recorded ?Confirmed ?Type levothyroxine 100 mcg tablet 1 tab PO MOWEFR 01/10/18 10/18/24 History levothyroxine 88 mcg tablet 1 tab PO SUTUTHSA 01/10/18 10/18/24 History venlafaxine 37.5 mg 1 cap PO QPM 01/10/18 History capsule,extended release 24 hr omeprazole 20 mg capsule,delayed 200 mg PO DAILY 03/0410/18/24 History release losartan 100 mg tablet 50 mg PO DAILY 02/24/2311/08 History albuterol sulfate 90 mcg/actuation 2 puff inhalation Q 6H PRN 03/01/23 10/18/24 Rx aerosol inhaler shortness of breath or [place] ing #6.7 grams lidocaine 5 % topical gel 1 ea topical BID PRN pain #1 0 grams 04/05/24 10/18/24 Rx pramoxine 1 % topical foam 1 applic [place] TID #15 grams 0 04/05/24 10/18/24 Rx (Proctofoam) vits no.126-ferrous fum tab PO 05/01/2410/18 History 28 mg iron-folic acid 800 mcg tablet (Classic ) lactulose 20 gram/30 mL oral 20 g (30 mL) PO BID PRN 1 10/18/24 Rx solution constipation #1,200 mL vibegron 75 mg tablet (Gemtesa) 75 mg PO DAILY #90 tab s 10/09/24 10/18/24 Rx clotrimazole 1 % topical cream applic topical BID 11/0810/18/24 History hydroxyurea (sickle cell) 200 mg 200 mg PO DAILY 10/1810/18/24 History capsule (Droxia) ketoconazole 2 % topical cream 1 applic topical 10/18/24 History losartan 50 mg tablet 50 mg PO DAILY 10/18/2411/08 History cefdinir 300 mg capsule 300 mg PO BID #10 caps 05/27 Rx hydrocortisone acetate 25 mg 25 mg [place] BID #24 ea 05/27 Rx rectal suppository (Anusol-HC) phenazopyridine 100 mg tablet 100 mg PO TID PRN pain 6 doses #6 05/27/25 Rx (Pyridium) tabs cefdinir 300 mg capsule 300 mg PO BID 10 days #20 ca ps 06/27/25 Rx metronidazole 500 mg tablet 500 mg PO TID #30 tabs 07/10 Rx Allergies Allergy/AdvReac Type Severity Reaction Status Date / Time Penicillins (PENICILLINS) Allergy Severe LESIONS IN Verified 07/02/25 19:10 HER MOUTH ciprofloxacin (CIPROFLOXACIN) Allergy Intermediate tongue Verified 07/02/25 19:10 inflammation Review of Systems Review of Systems ROS: Yes All systems reviewed with the patient and are negative except as otherwise documented Exam Vital Signs (past 8 hours): - 07/02/25 22:55 07/02/25 22:55 07/02/25 23:00 Temperature Pulse Rate 124 H 126 H Respiratory Rate 26 H 25 H Blood Pressure 95/61 Pulse Oximetry 97 97 Oxygen Delivery Method Oxygen Flow Rate Fraction of Inspired Oxygen 07/02/25 23:00 07/02/25 23:05 07/02/25 23:05 Temperature Pulse Rate 126 H Respiratory Rate 27 H Blood Pressure 104/56 L 100/65 Pulse Oximetry 96 Oxygen Delivery Method Oxygen Flow Rate Fraction of Inspired Oxygen 07/02/25 23:10 07/02/25 23:10 07/02/25 23:15 Temperature Pulse Rate 122 H 130 H Respiratory Rate 28 H 34 H Blood Pressure 104/60 Pulse Oximetry 95 95 Oxygen Delivery Method Oxygen Flow Rate Fraction of Inspired Oxygen 07/02/25 23:15 07/02/25 23:20 07/02/25 23:20 Temperature Pulse Rate 130 H Respiratory Rate 35 H Blood Pressure 102/56 L 99/57 L Pulse Oximetry 95 Oxygen Delivery Method Oxygen Flow Rate Fraction of Inspired Oxygen 07/02/25 23:25 07/02/25 23:25 07/02/25 23:30 Temperature Pulse Rate 134 H 133 H Respiratory Rate 47 H 30 H Blood Pressure 113/58 L Pulse Oximetry 95 93 Oxygen Delivery Method Oxygen Flow Rate Fraction of Inspired Oxygen 07/02/25 23:30 07/02/25 23:35 07/02/25 23:35 Temperature Pulse Rate 133 H Respiratory Rate 30 H Blood Pressure 110/78 94/61 Pulse Oximetry 93 Oxygen Delivery Method Oxygen Flow Rate Fraction of Inspired Oxygen 07/02/25 23:40 07/02/25 23:43 07/02/25 23:43 Temperature Pulse Rate 134 H 134 H Respiratory Rate 30 H 30 H Blood Pressure 108/55 L Pulse Oximetry 94 94 Oxygen Delivery Method Nasal Cannula Oxygen Flow Rate 4 Fraction of Inspired Oxygen 07/02/25 23:50 07/02/25 23:50 07/03/25 00:00 Temperature Pulse Rate 136 H Respiratory Rate 31 H Blood Pressure 107/67 98/57 L Pulse Oximetry 94 Oxygen Delivery Method Oxygen Flow Rate Fraction of Inspired Oxygen 07/03/25 00:00 07/03/25 00:06 07/03/25 00:06 Temperature Pulse Rate 133 H Respiratory Rate 29 H Blood Pressure Pulse Oximetry 94 94 Oxygen Delivery Method Nasal Cannula Nasal Cannula Oxygen Flow Rate 4 Fraction of Inspired Oxygen 36 07/03/25 00:10 07/03/25 00:11 07/03/25 00:11 Temperature Pulse Rate 131 H 130 H Respiratory Rate 29 H 29 H Blood Pressure 101/65 Pulse Oximetry 94 94 Oxygen Delivery Method Nasal Cannula Oxygen Flow Rate 4 Fraction of Inspired Oxygen 07/03/25 00:20 07/03/25 00:20 07/03/25 00:30 Temperature Pulse Rate 131 H 133 H Respiratory Rate 29 H 28 H Blood Pressure 96/60 Pulse Oximetry 96 96 Oxygen Delivery Method Oxygen Flow Rate Fraction of Inspired Oxygen 07/03/25 00:30 07/03/25 00:40 07/03/25 00:40 Temperature Pulse Rate 137 H Respiratory Rate 32 H Blood Pressure 99/57 L 108/71 Pulse Oximetry 95 Oxygen Delivery Method Nasal Cannula Oxygen Flow Rate 4 Fraction of Inspired Oxygen 07/03/25 00:50 07/03/25 00:50 07/03/25 05:52 Temperature 97.9 F Pulse Rate 135 H 123 H Respiratory Rate 30 H 27 H Blood Pressure 106/66 93/55 L Pulse Oximetry 92 93 Oxygen Delivery Method Oxygen Flow Rate 4 Fraction of Inspired Oxygen Fraction of Inspired Oxygen 36 SaO2/FiO2 Ratio 261 Oxygen Delivery Method Nasal Cannula Oxygen Flow Rate 4 Objective Labs 07/02/25 19:08 07/02/25 19:08 Labs: Laboratory Results - last 24 hr 07/02/25 07/02/25 07/02/25 19:08 19:08 19:30 WBC 12.1 H RBC 3.77 L Hgb 10.9 L Hct 34.2 L MCV 90.8 MCH 28.8 MCHC 31.8 RDW 16.4 H Plt Count 644 H Neut % (Auto) 93.5 H Lymph % (Auto) 3.4 L [place] % (Auto) 3.0 Eos % (Auto) 0.0 L Baso % (Auto) 0.1 Neut # (Auto) 03227 H Lymph # (Auto) 400 L [place] # (Auto) 400 Eos # (Auto) 0 Baso # (Auto) 0 PT 16.0 H INR 1.4 H APTT 30 VBG pH VBG pCO2 VBG pO2 VBG HCO3 VBG Total CO2 VBG O2 Saturation VBG Base Excess FiO2 % Sodium 133 L Potassium 3.4 Chloride 97 L Carbon Dioxide 28 BUN 16 Creatinine 0.89 Estimated GFR > 60 BUN/Creatinine Ratio 18.0 Glucose 101 H POC Whole Bld Glucose Lactate 1.9 Calcium 8.4 Total Bilirubin 0.5 AST 96 H ALT 27 Alkaline Phosphatase 115 Total Creatine Kinase 322 H D Troponin I 0.119 H Cancelled NT-Pro-B Natriuret Pep 7560 H Total Protein 6.9 Albumin 3.2 L Globulin 3.7 Albumin/Globulin Ratio 0.9 L TSH 0.704 Nasal Screen MRSA (PCR) 07/02/25 07/02/25 07/03/25 21:28 21:59 01:49 WBC RBC Hgb Hct MCV MCH MCHC RDW Plt Count Neut % (Auto) Lymph % (Auto) [place] % (Auto) Eos % (Auto) Baso % (Auto) Neut # (Auto) Lymph # (Auto) [place] # (Auto) Eos # (Auto) Baso # (Auto) PT INR APTT VBG pH 7.54 H VBG pCO2 31.0 L VBG pO2 109 H VBG HCO3 27 VBG Total CO2 25 VBG O2 Saturation 99 H VBG Base Excess 4.2 H FiO2 % 40.0 % Sodium Potassium Chloride Carbon Dioxide BUN Creatinine Estimated GFR BUN/Creatinine Ratio Glucose POC Whole Bld Glucose Lactate Calcium Total Bilirubin AST ALT Alkaline Phosphatase Total Creatine Kinase Troponin I 0.103 H NT-Pro-B Natriuret Pep Total Protein Albumin Globulin Albumin/Globulin Ratio TSH Nasal Screen MRSA (PCR) Not detected 07/03/25 05:29 WBC RBC Hgb Hct MCV MCH MCHC RDW Plt Count Neut % (Auto) Lymph % (Auto) [place] % (Auto) Eos % (Auto) Baso % (Auto) Neut # (Auto) Lymph # (Auto) [place] # (Auto) Eos # (Auto) Baso # (Auto) PT INR APTT VBG pH VBG pCO2 VBG pO2 VBG HCO3 VBG Total CO2 VBG O2 Saturation VBG Base Excess FiO2 % Sodium Potassium Chloride Carbon Dioxide BUN Creatinine Estimated GFR BUN/Creatinine Ratio Glucose POC Whole Bld Glucose 126 H Lactate Calcium Total Bilirubin AST ALT Alkaline Phosphatase Total Creatine Kinase Troponin I NT-Pro-B Natriuret Pep Total Protein Albumin Globulin Albumin/Globulin Ratio TSH Nasal Screen MRSA (PCR) Assessment & Plan Assessment & Plan narrative: Concern for new CVA with confusion and some transient slurred speech. The patient to medical telemetry as inpatient. Of note CT CT angio of the head and neck showed no acute finding. Could be related to UTI causing worsening symptoms. However Continue to monitor neurostatus and if symptoms do not improve consider brain MRI tomorrow. Continue to treat underlying UTI. UTI. Patient not septic at time. Continue IV ceftriaxone. Follow-up culture. A-fib RVR. Continue Eliquis with diltiazem drip for rate control. Hypothyroidism resume home Synthroid. Hypertension monitor blood pressure resume home medication accordingly. DVT prophylaxis Eliquis) CODE STATUS full code. Disposition likely home in 1 to 2 days - As the provider of this telehealth evaluation, requested by the patient's evaluating physician, I attest that I introduced myself to the patient, provided my credentials and determined that telemedicine via a real-time, 2 way interactive audio and video platform is an appropriate and effective means of providing this service. - I reviewed the patient's chart and had a discussion with the member of the patient's treatment team. - The patient and I mutually agreed with continuation of this evaluation via telemedicine. The patient consented for the telemedicine evaluation. - This virtual encounter was taken place from [place] by Dr. Gamaliel Lopez. The patient was evaluated at [facility]. The encounter was approximately 35 minutes. The nurse was present during the entire time of the encounter and was able assists with the stethoscope to listen to the patients. Time-Based Coding :: [TOTAL MINUTES] spent with patient and on the chart (including review of chart, obtaining history, exam, reviewing outside data, placing orders, documenting exam and treatment plan, and counseling patient) on [DATE]. Quality VTE Deep Vein Thrombosis/Pulmonary Embolism Present on Admission: No
--- NOTE | 2025-07-03 06:56 | DI.ECHO.S_ITS ---
[place] +---------+ Hospital : : [address] : : [place] : : [id number] : : Phone: [phone] Echocardiogram Report + + :Name: DONNA CHOE Study Date: 07/03/2025 Height: 62 in : :[facility] ReadingLocation: Weight: 128 lb: : Gender: Female BSA: 1.6 m2 : :: 1940 Age: 85 yrs BP: 93/55 mmHg: :Reason For Study: ATRIAL FIBRILLATION : :Ordering Physician: JUAN JOSÉ, : :SHARON Performed By: Stef Warren : :Referring: SHARON CAN : + + Interpretation Summary 1) Normal left ventricular thickness and size with mildly to moderately reduced systolic function (EF 40-45%). 2) Normal right ventricular size and function. 3) No significant valvular abnormalities. 4) Compared to the Echo done 11/02/2020, LVEF has decreased from 60-65% to 40- 45% on this study. Procedure: A two-dimensional transthoracic echocardiogram with color flow and Doppler was performed. The study quality was technically adequate. Comparison is made with the echocardiogram of 11/02/2020. The patient was in atrial fibrillation with heart rates between 75-118 bpm during the exam. Left Ventricle: The left ventricle is normal in size. There is normal left ventricular wall thickness. There is no ventricular septal defect visualized. The ejection fraction is estimated to be 40-45%. There is mild to moderate global hypokinesis of the left ventricle. Diastolic function could not be accurately assessed due to atrial fibrillation. Right Ventricle: The right ventricle is normal size. The right ventricular systolic function is normal. Atria: The left atrium is mildly dilated. Right atrial size is normal. The interatrial septum is not well visualized. Mitral Valve: The mitral valve is grossly normal. There is mild mitral regurgitation. Aortic Valve: The aortic valve is trileaflet. The aortic valve is mildly calcified. The aortic valve opens well. There is no aortic valve stenosis. No aortic regurgitation is present. Tricuspid Valve: The tricuspid valve leaflets are thin and pliable. There is mild tricuspid regurgitation. Right ventricular systolic pressure is estimated to be 29 mmHg plus the clinically estimated CVP which cannot be estimated on this exam. Pulmonic Valve: The pulmonic valve is not well visualized. There is no pulmonic valvular regurgitation. Great Vessels: The aortic root is normal size. The dimensions of the ascending aorta are normal. The pulmonary artery is normal size. The inferior vena cava was not visualized. Pericardium/ Pleura There is no pericardial effusion. MMode/2D Measurements & Calculations LVIDd: 4.2 cm LVOT diam: 2.0 cm LVIDs: 3.1 cm Ao root diam: 3.5 cm FS: 25.5 % asc Aorta Diam: 3.5 cm EPSS: 1.1 cm IVSd: 0.84 cm LVPWd: 0.94 cm LV cortes. diameter/BSA (cm/m^2): 2.7 LV sys. diameter/BSA (cm/m^2): 2.0 LA A2 area: 18.3 cm2 RA long axis: 4.8 cm LA A4 area: 18.8 cm2 RA area: 14.4 cm2 LA length (vol): 5.5 cm RA vol: 36.6 ml LA vol: 52.8 ml RA : 23.2 ml/m2 LA vol index: 33.4 ml/m2 RVD1 (basal): 3.8 cm RVD2 (mid): 3.3 cm Doppler Measurements & Calculations Ao V2 max: 131.8 cm/sec LVOT Max Ricky: 101.0 cm/sec Ao V2 mean: 90.5 cm/sec LV V1 max P.1 mmHg Ao max P.9 mmHg LV V1 VTI: 12.0 cm Ao mean P.6 mmHg HAO(I,D): 2.1 cm2 Ao V2 VTI: 17.9 cm HAO(V,D): 2.4 cm2 sev ratio: 0.67 HAO indexed to BSA (cm^2/m^2): 1.3 MV E max ricky: 71.2 cm/sec TR max ricky: 269.4 cm/sec MV A max ricky: 19.0 cm/sec TR max P.0 mmHg MV E/A: 3.8 PA V2 max: 95.4 cm/sec Med Peak E' Ricky: 6.4 cm/sec PA V2 mean: 64.9 cm/sec E/E' med: 11.1 PA mean P.9 mmHg Lat Peak E' Ricky: 8.6 cm/sec PA pr(Accel): 56.7 mmHg E/E' lat: 8.3 E/e' average: 9.7 MV dec time: 0.18 sec SV(LVOT): 37.3 ml Reading Physician:05:34 PM
--- NOTE | 2025-07-03 06:56 | PM.HP.1 ---
History of Present Illness History of Present Illness Date Patient Seen: 07/02/25 Time Patient Seen: 23:56 Chief complaint: Weakness/slurred speach Narrative: 85-year-old female with past medical history of multiple CVAs past on Aggrenox but did not take her dose today, hypothyroidism, depression, hypertension and known pulm nodules presents with reported right facial drooping, confusion, slurred speech and some difficulty ambulating. Per report the patient started to have these new symptoms yesterday. The patient's states that she does have intermittent confusion over the last month or so today seems to be worse than usual. Otherwise no report of any recent fever, chills, nausea, vomiting, diarrhea, chest pain or shortness of. There is no report of focal weakness as well. In the emergency room, the patient was hemodynamically stable. The patient however was requiring 4 to 5 L oxygen per nasal cannula. Lab shows a WBC of 12 hemoglobin of 10, I am seeing 133 troponin initially 0.11 but repeat was 0.10. BNP level was 7560. UA was positive for UTI. CT angio of the head and neck shows no signs of acute stroke. Patient did have atrial fibrillation with RVR. CT angio of the chest shows no PE or signs of pneumonia. Dr. Desir of cardiology recommend to start Eliquis and continue diltiazem drip. Patient mentation did improve and close to normal per the patient's hospital. [facility] Medical History Incontinence of urine Incontinence Hx of cancer antigen 125 (CA-125) measurement Cancer Pulmonary nodules CVA (cerebral vascular accident) Stroke Surgical History Hx of breast biopsy History of hip replacement Family History Father Hypertension Heart disease Mother Breast cancer Social History marital status: household members: spouse lives independently: Yes occupational status: previously employed Smoking Status: Unknown if ever smoked alcohol intake: current substance use type: does not use and unknown Meds Home Medications and Allergies Home Medications ?Medication ?Instructions ?Recorded ?Confirmed ?Type levothyroxine 100 mcg tablet 1 tab PO MOWEFR 01/10/18 10/18/24 History levothyroxine 88 mcg tablet 1 tab PO SUTUTHSA 01/10/18 10/18/24 History venlafaxine 37.5 mg 1 cap PO QPM 01/10/18 10/18/24 History capsule,extended release 24 hr omeprazole 20 mg capsule,delayed 200 mg PO DAILY 03/04/22 10/18/24 History release losartan 100 mg tablet 50 mg PO DAILY 02/24/23 10/18/24 History albuterol sulfate 90 mcg/actuation 2 puff inhalation Q6H PRN 03/01/23 10/18/24 Rx aerosol inhaler shortness of breath or wheezing #6.7 grams lidocaine 5 % topical gel 1 ea topical BID PRN pain #10 grams 04/05/24 10/18/24 Rx pramoxine 1 % topical foam 1 applic ID TID #15 grams 04/05/24 10/18/24 Rx (Proctofoam) vits no.126-ferrous fum tab PO 05/01/24 10/18/24 History 28 mg iron-folic acid 800 mcg tablet (Classic ) lactulose 20 gram/30 mL oral 20 g (30 mL) PO BID PRN 05/04/24 10/18/24 Rx solution constipation #1,200 mL vibegron 75 mg tablet (Gemtesa) 75 mg PO DAILY #90 tabs 10/09/24 10/18/24 Rx clotrimazole 1 % topical cream applic topical BID 10/18/24 10/18/24 History hydroxyurea (sickle cell) 200 mg 200 mg PO DAILY 10/18/24 10/18/24 History capsule (Droxia) ketoconazole 2 % topical cream 1 applic topical 10/18/24 10/18/24 History losartan 50 mg tablet 50 mg PO DAILY 10/18/24 10/18/24 History cefdinir 300 mg capsule 300 mg PO BID #10 caps 05/27/25 Rx hydrocortisone acetate 25 mg 25 mg ID BID #24 ea 05/27/25 Rx rectal suppository (Anusol-HC) phenazopyridine 100 mg tablet 100 mg PO TID PRN pain 6 doses #6 05/27/25 Rx (Pyridium) tabs cefdinir 300 mg capsule 300 mg PO BID 10 days #20 caps 06/27/25 Rx metronidazole 500 mg tablet 500 mg PO TID #30 tabs 06/27/25 Rx Allergies Allergy/AdvReac Type Severity Reaction Status Date / Time Penicillins (PENICILLINS) Allergy Severe LESIONS IN Verified 07/02/25 19:10 HER MOUTH ciprofloxacin (CIPROFLOXACIN) Allergy Intermediate tongue Verified 07/02/25 19:10 inflammation Exam Vital Signs (past 8 hours): - 07/02/25 23:00 07/02/25 23:00 07/02/25 23:05 Temperature Pulse Rate 126 H 126 H Respiratory Rate 25 H 27 H Blood Pressure 104/56 L Pulse Oximetry 97 96 Oxygen Delivery Method Oxygen Flow Rate Fraction of Inspired Oxygen 07/02/25 23:05 07/02/25 23:10 07/02/25 23:10 Temperature Pulse Rate 122 H Respiratory Rate 28 H Blood Pressure 100/65 104/60 Pulse Oximetry 95 Oxygen Delivery Method Oxygen Flow Rate Fraction of Inspired Oxygen 07/02/25 23:15 07/02/25 23:15 07/02/25 23:20 Temperature Pulse Rate 130 H 130 H Respiratory Rate 34 H 35 H Blood Pressure 102/56 L Pulse Oximetry 95 95 Oxygen Delivery Method Oxygen Flow Rate Fraction of Inspired Oxygen 07/02/25 23:20 07/02/25 23:25 07/02/25 23:25 Temperature Pulse Rate 134 H Respiratory Rate 47 H Blood Pressure 99/57 L 113/58 L Pulse Oximetry 95 Oxygen Delivery Method Oxygen Flow Rate Fraction of Inspired Oxygen 07/02/25 23:30 07/02/25 23:30 07/02/25 23:35 Temperature Pulse Rate 133 H Respiratory Rate 30 H Blood Pressure 110/78 94/61 Pulse Oximetry 93 Oxygen Delivery Method Oxygen Flow Rate Fraction of Inspired Oxygen 07/02/25 23:35 07/02/25 23:40 07/02/25 23:43 Temperature Pulse Rate 133 H 134 H 134 H Respiratory Rate 30 H 30 H 30 H Blood Pressure Pulse Oximetry 93 94 94 Oxygen Delivery Method Nasal Cannula Oxygen Flow Rate 4 Fraction of Inspired Oxygen 07/02/25 23:43 07/02/25 23:50 07/02/25 23:50 Temperature Pulse Rate 136 H Respiratory Rate 31 H Blood Pressure 108/55 L 107/67 Pulse Oximetry 94 Oxygen Delivery Method Oxygen Flow Rate Fraction of Inspired Oxygen 07/03/25 00:00 07/03/25 00:00 07/03/25 00:06 Temperature Pulse Rate 133 H Respiratory Rate 29 H Blood Pressure 98/57 L Pulse Oximetry 94 94 Oxygen Delivery Method Nasal Cannula Oxygen Flow Rate 4 Fraction of Inspired Oxygen 36 07/03/25 00:06 07/03/25 00:10 07/03/25 00:11 Temperature Pulse Rate 131 H Respiratory Rate 29 H Blood Pressure 101/65 Pulse Oximetry 94 Oxygen Delivery Method Nasal Cannula Oxygen Flow Rate Fraction of Inspired Oxygen 07/03/25 00:11 07/03/25 00:20 07/03/25 00:20 Temperature Pulse Rate 130 H 131 H Respiratory Rate 29 H 29 H Blood Pressure 96/60 Pulse Oximetry 94 96 Oxygen Delivery Method Nasal Cannula Oxygen Flow Rate 4 Fraction of Inspired Oxygen 07/03/25 00:30 07/03/25 00:30 07/03/25 00:40 Temperature Pulse Rate 133 H 137 H Respiratory Rate 28 H 32 H Blood Pressure 99/57 L Pulse Oximetry 96 95 Oxygen Delivery Method Nasal Cannula Oxygen Flow Rate 4 Fraction of Inspired Oxygen 07/03/25 00:40 07/03/25 00:50 07/03/25 00:50 Temperature Pulse Rate 135 H Respiratory Rate 30 H Blood Pressure 108/71 106/66 Pulse Oximetry 92 Oxygen Delivery Method Oxygen Flow Rate Fraction of Inspired Oxygen 07/03/25 05:52 Temperature 97.9 F Pulse Rate 123 H Respiratory Rate 27 H Blood Pressure 93/55 L Pulse Oximetry 93 Oxygen Delivery Method Oxygen Flow Rate 4 Fraction of Inspired Oxygen Fraction of Inspired Oxygen 36 SaO2/FiO2 Ratio 261 Oxygen Delivery Method Nasal Cannula Oxygen Flow Rate 4 Objective Labs 07/02/25 19:08 07/02/25 19:08 Labs: Laboratory Results - last 24 hr 07/02/25 07/02/25 07/02/25 19:08 19:08 19:30 WBC 12.1 H RBC 3.77 L Hgb 10.9 L Hct 34.2 L MCV 90.8 MCH 28.8 MCHC 31.8 RDW 16.4 H Plt Count 644 H Neut % (Auto) 93.5 H Lymph % (Auto) 3.4 L [place] % (Auto) 3.0 Eos % (Auto) 0.0 L Baso % (Auto) 0.1 Neut # (Auto) 44277 H Lymph # (Auto) 400 L [place] # (Auto) 400 Eos # (Auto) 0 Baso # (Auto) 0 PT 16.0 H INR 1.4 H APTT 30 VBG pH VBG pCO2 VBG pO2 VBG HCO3 VBG Total CO2 VBG O2 Saturation VBG Base Excess FiO2 % Sodium 133 L Potassium 3.4 Chloride 97 L Carbon Dioxide 28 BUN 16 Creatinine 0.89 Estimated GFR > 60 BUN/Creatinine Ratio 18.0 Glucose 101 H POC Whole Bld Glucose Lactate 1.9 Calcium 8.4 Total Bilirubin 0.5 AST 96 H ALT 27 Alkaline Phosphatase 115 Total Creatine Kinase 322 H D Troponin I 0.119 H Cancelled NT-Pro-B Natriuret Pep 7560 H Total Protein 6.9 Albumin 3.2 L Globulin 3.7 Albumin/Globulin Ratio 0.9 L TSH 0.704 Nasal Screen MRSA (PCR) 07/02/25 07/02/25 07/03/25 21:28 21:59 01:49 WBC RBC Hgb Hct MCV MCH MCHC RDW Plt Count Neut % (Auto) Lymph % (Auto) [place] % (Auto) Eos % (Auto) Baso % (Auto) Neut # (Auto) Lymph # (Auto) [place] # (Auto) Eos # (Auto) Baso # (Auto) PT INR APTT VBG pH 7.54 H VBG pCO2 31.0 L VBG pO2 109 H VBG HCO3 27 VBG Total CO2 25 VBG O2 Saturation 99 H VBG Base Excess 4.2 H FiO2 % 40.0 % Sodium Potassium Chloride Carbon Dioxide BUN Creatinine Estimated GFR BUN/Creatinine Ratio Glucose POC Whole Bld Glucose Lactate Calcium Total Bilirubin AST ALT Alkaline Phosphatase Total Creatine Kinase Troponin I 0.103 H NT-Pro-B Natriuret Pep Total Protein Albumin Globulin Albumin/Globulin Ratio TSH Nasal Screen MRSA (PCR) Not detected 07/03/25 05:29 WBC RBC Hgb Hct MCV MCH MCHC RDW Plt Count Neut % (Auto) Lymph % (Auto) [place] % (Auto) Eos % (Auto) Baso % (Auto) Neut # (Auto) Lymph # (Auto) [place] # (Auto) Eos # (Auto) Baso # (Auto) PT INR APTT VBG pH VBG pCO2 VBG pO2 VBG HCO3 VBG Total CO2 VBG O2 Saturation VBG Base Excess FiO2 % Sodium Potassium Chloride Carbon Dioxide BUN Creatinine Estimated GFR BUN/Creatinine Ratio Glucose POC Whole Bld Glucose 126 H Lactate Calcium Total Bilirubin AST ALT Alkaline Phosphatase Total Creatine Kinase Troponin I NT-Pro-B Natriuret Pep Total Protein Albumin Globulin Albumin/Globulin Ratio TSH Nasal Screen MRSA (PCR) Assessment & Plan Assessment & Plan narrative: - As the provider of this telehealth evaluation, requested by the patient's evaluating physician, I attest that I introduced myself to the patient, provided my credentials and determined that telemedicine via a real-time, 2 way interactive audio and video platform is an appropriate and effective means of providing this service. - I reviewed the patient's chart and had a discussion with the member of the patient's treatment team. - The patient and I mutually agreed with continuation of this evaluation via telemedicine. The patient consented for the telemedicine evaluation. - This virtual encounter was taken place from [place] by Dr. Gamaliel Lopez. The patient was evaluated at [facility]. The encounter was approximately 35 minutes. The nurse was present during the entire time of the encounter and was able assists with the stethoscope to listen to the patients. Time-Based Coding :: [TOTAL MINUTES] spent with patient and on the chart (including review of chart, obtaining history, exam, reviewing outside data, placing orders, documenting exam and treatment plan, and counseling patient) on [DATE]. Quality VTE Deep Vein Thrombosis/Pulmonary Embolism Present on Admission: No
[2025-07-03] MEDS: DIGOXIN 500 MCG/2 ML AMPUL 250 MCG IV (08:22)
[2025-07-03] MEDS: APIXABAN 5 MG TABLET PO ×2 (08:22→22:16)
--- NOTE | 2025-07-03 08:43 | PT-IP ANOTE ---
PT evaluation contraindicated due to HR supine 126-141 bpm due to uncontrolled afib with RVR per MD note. Will continue to follow as appropriate.
--- NOTE | 2025-07-03 08:45 | OT.IPNOTE ---
Pt having high HR at rest and to hold OT eval at this time until pt is more medically appropriate.
[2025-07-03 09:47] LABS: Add Manual Diff / Slide Review NO; Hematocrit 29.8 % (36-46); Hemoglobin 9.9 g/dL (12.0-16.0); Lymphocytes Absolute Auto 300 /uL (1100-4500); Mean Corpuscular HGB Conc 33.1 % (30-36); Mean Corpuscular Hemoglobin 29.8 PG (26-34); Mean Corpuscular Volume 90.1 fL (80-100); Platelet Count 437 X10^3/uL (150-400)
[2025-07-03 09:59] LABS: Blood Urea Nitrogen 17 mg/dL (7-17); Calcium 7.7 mg/dL (8.4-10.2); Carbon Dioxide 26 mmol/L (22-32); Chloride 101 mmol/L (98-107); Estimated Glomerular Filt Rate > 60 mL/min (>60); Glucose 113 mg/dL (70-99); HEMOLYSIS < 15 (0-50); Potassium 3.5 mmol/L (3.4-5.1); Sodium 133 mmol/L (137-145)
--- NOTE | 2025-07-03 10:25 | PC.NURSE ---
0750 DR ROBERTS AT BEDSIDE TO ASSESS PATIENT. MD TO ORDER IV PUSH DIGOXIN FOR AFIB RVR 130S AND REQUESTS TO KEEP PATIENT ON DILT GTT AT THIS TIME. 0845 DIFFICULTY NOTED WITH SWALLOWING. PT REQUIRING FREQUENT COACHING WITH SWALLOW BUT NO COUGHING NOTED. MD MADE AWARE. SPEECH EVAL ORDERED. 1024 DIESEL ENGINE ERECTOR AT BEDSIDE PERFORMING SPEECH. RECOMMENDING MINCED/ MOIST DIET, THIN LIQUIDS, AND 1:1 SUPERVISION WITH SWALLOWING.
[2025-07-03 11:39] LABS: Ictotest Urine Negative (Negative)
[2025-07-03 11:42] LABS: UR Morphine/Opiate cutoff 300 Negative (Negative); Ur Specific Gravity Normal (Normal); Urine MDMA Negative (Negative); Urine Methamphetamines Negative (Negative); Urine Tetrahydrocannabinol Negative (Negative); Urine Tricyclic Antidepressant Negative (Negative)
[2025-07-03] MEDS: POTASSIUM CHLORIDE 20 MEQ/15 ML UDC 40 MEQ PO (12:06)
--- NOTE | 2025-07-03 13:01 | PM.PN.1 ---
Exam Vital Signs (past 8 hours): - 07/03/25 05:52 07/03/25 06:24 07/03/25 06:30 Temperature 97.9 F Pulse Rate 123 H 123 H Respiratory Rate 27 H 29 H Blood Pressure 93/55 L 94/51 L Pulse Oximetry 93 94 Oxygen Delivery Method Oxygen Flow Rate 4 07/03/25 06:30 07/03/25 06:52 07/03/25 07:00 Temperature Pulse Rate 126 H 122 H Respiratory Rate 29 H 27 H Blood Pressure 98/55 L 98/55 L Pulse Oximetry 93 94 Oxygen Delivery Method Oxygen Flow Rate 3 07/03/25 07:00 07/03/25 07:30 07/03/25 07:30 Temperature Pulse Rate 123 H 121 H Respiratory Rate 27 H 28 H Blood Pressure 92/54 L Pulse Oximetry 92 93 Oxygen Delivery Method Oxygen Flow Rate 07/03/25 07:36 07/03/25 07:36 07/03/25 08:00 Temperature 97.6 F Pulse Rate 125 H Respiratory Rate 29 H Blood Pressure 94/50 L Pulse Oximetry 89 L Oxygen Delivery Method Oxygen Flow Rate 07/03/25 08:00 07/03/25 08:00 07/03/25 08:00 Temperature Pulse Rate 125 H Respiratory Rate 30 H Blood Pressure 105/53 L Pulse Oximetry 94 Oxygen Delivery Method Nasal Cannula Oxygen Flow Rate 07/03/25 08:22 07/03/25 08:30 07/03/25 08:30 Temperature Pulse Rate 135 H 127 H Respiratory Rate 27 H Blood Pressure 105/53 L 93/55 L Pulse Oximetry 94 Oxygen Delivery Method Oxygen Flow Rate 07/03/25 09:00 07/03/25 09:00 07/03/25 09:30 Temperature Pulse Rate 123 H 119 H Respiratory Rate 30 H 29 H Blood Pressure 97/56 L Pulse Oximetry 95 95 Oxygen Delivery Method Oxygen Flow Rate 07/03/25 09:30 07/03/25 09:39 07/03/25 09:39 Temperature Pulse Rate 118 H Respiratory Rate 26 H Blood Pressure 86/50 L 94/54 L Pulse Oximetry 95 Oxygen Delivery Method Oxygen Flow Rate 07/03/25 10:00 07/03/25 10:00 07/03/25 10:30 Temperature Pulse Rate 123 H Respiratory Rate 31 H Blood Pressure 101/59 L 109/71 Pulse Oximetry 92 Oxygen Delivery Method Oxygen Flow Rate 07/03/25 10:30 07/03/25 10:30 07/03/25 11:00 Temperature Pulse Rate 123 H Respiratory Rate 30 H Blood Pressure 109/71 117/73 Pulse Oximetry 93 Oxygen Delivery Method Oxygen Flow Rate 07/03/25 11:00 07/03/25 11:30 07/03/25 11:30 Temperature Pulse Rate 122 H 118 H Respiratory Rate 30 H 28 H Blood Pressure 108/63 Pulse Oximetry 92 93 Oxygen Delivery Method Oxygen Flow Rate 07/03/25 12:00 07/03/25 12:00 07/03/25 12:00 Temperature 97.2 F L Pulse Rate 107 H Respiratory Rate 27 H Blood Pressure 106/57 L Pulse Oximetry 93 Oxygen Delivery Method Oxygen Flow Rate 07/03/25 12:00 07/03/25 12:30 07/03/25 12:30 Temperature Pulse Rate 121 H Respiratory Rate 30 H Blood Pressure 119/74 Pulse Oximetry 93 Oxygen Delivery Method Nasal Cannula Oxygen Flow Rate Fraction of Inspired Oxygen 36 SaO2/FiO2 Ratio 261 Oxygen Delivery Method Nasal Cannula Oxygen Flow Rate 3 Objective Labs 07/03/25 09:25 07/03/25 09:25 Labs: Laboratory Results - last 24 hr 07/02/25 07/02/25 07/02/25 19:08 19:08 19:30 WBC 12.1 H RBC 3.77 L Hgb 10.9 L Hct 34.2 L MCV 90.8 MCH 28.8 MCHC 31.8 RDW 16.4 H Plt Count 644 H Neut % (Auto) 93.5 H Lymph % (Auto) 3.4 L [place] % (Auto) 3.0 Eos % (Auto) 0.0 L Baso % (Auto) 0.1 Neut # (Auto) 59894 H Lymph # (Auto) 400 L [place] # (Auto) 400 Eos # (Auto) 0 Baso # (Auto) 0 PT 16.0 H INR 1.4 H APTT 30 VBG pH VBG pCO2 VBG pO2 VBG HCO3 VBG Total CO2 VBG O2 Saturation VBG Base Excess FiO2 % Sodium 133 L Potassium 3.4 Chloride 97 L Carbon Dioxide 28 BUN 16 Creatinine 0.89 Estimated GFR > 60 BUN/Creatinine Ratio 18.0 Glucose 101 H POC Whole Bld Glucose Lactate 1.9 Calcium 8.4 Total Bilirubin 0.5 AST 96 H ALT 27 Alkaline Phosphatase 115 Total Creatine Kinase 322 H D Troponin I 0.119 H Cancelled NT-Pro-B Natriuret Pep 7560 H Total Protein 6.9 Albumin 3.2 L Globulin 3.7 Albumin/Globulin Ratio 0.9 L TSH 0.704 Ur Bilirubin Confirm Urine RBC Urine WBC Ur Squamous Epith Cells Urine Bacteria Vol Urine Centrifuged Nasal Screen MRSA (PCR) U Opiates 300ng/mL cut Ur Oxycodone Screen Urine Methadone Screen Ur Barbiturates Screen U Tricyclic Antidepress Ur Phencyclidine Scrn Ur Amphetamines Screen U Methamphetamines Scrn Ur MDMA Scrn (Ecstasy) U Benzodiazepines Scrn Urine Cocaine Screen U Marijuana (THC) Screen Urine pH Urine Specific [place] Ur Creatinine 07/02/25 07/02/25 07/03/25 21:28 21:59 01:49 WBC RBC Hgb Hct MCV MCH MCHC RDW Plt Count Neut % (Auto) Lymph % (Auto) [place] % (Auto) Eos % (Auto) Baso % (Auto) Neut # (Auto) Lymph # (Auto) [place] # (Auto) Eos # (Auto) Baso # (Auto) PT INR APTT VBG pH 7.54 H VBG pCO2 31.0 L VBG pO2 109 H VBG HCO3 27 VBG Total CO2 25 VBG O2 Saturation 99 H VBG Base Excess 4.2 H FiO2 % 40.0 % Sodium Potassium Chloride Carbon Dioxide BUN Creatinine Estimated GFR BUN/Creatinine Ratio Glucose POC Whole Bld Glucose Lactate Calcium Total Bilirubin AST ALT Alkaline Phosphatase Total Creatine Kinase Troponin I 0.103 H NT-Pro-B Natriuret Pep Total Protein Albumin Globulin Albumin/Globulin Ratio TSH Ur Bilirubin Confirm Urine RBC Urine WBC Ur Squamous Epith Cells Urine Bacteria Vol Urine Centrifuged Nasal Screen MRSA (PCR) Not detected U Opiates 300ng/mL cut Ur Oxycodone Screen Urine Methadone Screen Ur Barbiturates Screen U Tricyclic Antidepress Ur Phencyclidine Scrn Ur Amphetamines Screen U Methamphetamines Scrn Ur MDMA Scrn (Ecstasy) U Benzodiazepines Scrn Urine Cocaine Screen U Marijuana (THC) Screen Urine pH Urine Specific [place] Ur Creatinine 07/03/25 07/03/25 07/03/25 05:29 09:25 11:10 WBC 8.9 RBC 3.31 L Hgb 9.9 L Hct 29.8 L MCV 90.1 MCH 29.8 MCHC 33.1 RDW 16.5 H Plt Count 437 H Neut % (Auto) 93.4 H Lymph % (Auto) 3.8 L [place] % (Auto) 2.6 L Eos % (Auto) 0.1 L Baso % (Auto) 0.1 Neut # (Auto) 8300 H Lymph # (Auto) 300 L [place] # (Auto) 200 Eos # (Auto) 0 Baso # (Auto) 0 PT INR APTT VBG pH VBG pCO2 VBG pO2 VBG HCO3 VBG Total CO2 VBG O2 Saturation VBG Base Excess FiO2 % Sodium 133 L Potassium 3.5 Chloride 101 Carbon Dioxide 26 BUN 17 Creatinine 0.68 Estimated GFR > 60 BUN/Creatinine Ratio 25.0 H Glucose 113 H POC Whole Bld Glucose 126 H Lactate Calcium 7.7 L Total Bilirubin AST ALT Alkaline Phosphatase Total Creatine Kinase Troponin I NT-Pro-B Natriuret Pep Total Protein Albumin Globulin Albumin/Globulin Ratio TSH Ur Bilirubin Confirm Negative Urine RBC Urine WBC Ur Squamous Epith Cells Urine Bacteria Vol Urine Centrifuged Nasal Screen MRSA (PCR) U Opiates 300ng/mL cut Negative Ur Oxycodone Screen Negative Urine Methadone Screen Negative Ur Barbiturates Screen Negative U Tricyclic Antidepress Negative Ur Phencyclidine Scrn Negative Ur Amphetamines Screen Negative U Methamphetamines Scrn Negative Ur MDMA Scrn (Ecstasy) Negative U Benzodiazepines Scrn Negative Urine Cocaine Screen Negative U Marijuana (THC) Screen Negative Urine pH Normal Urine Specific [place] Normal Ur Creatinine Normal 07/03/25 11:33 WBC RBC Hgb Hct MCV MCH MCHC RDW Plt Count Neut % (Auto) Lymph % (Auto) [place] % (Auto) Eos % (Auto) Baso % (Auto) Neut # (Auto) Lymph # (Auto) [place] # (Auto) Eos # (Auto) Baso # (Auto) PT INR APTT VBG pH VBG pCO2 VBG pO2 VBG HCO3 VBG Total CO2 VBG O2 Saturation VBG Base Excess FiO2 % Sodium Potassium Chloride Carbon Dioxide BUN Creatinine Estimated GFR BUN/Creatinine Ratio Glucose POC Whole Bld Glucose Lactate Calcium Total Bilirubin AST ALT Alkaline Phosphatase Total Creatine Kinase Troponin I NT-Pro-B Natriuret Pep Total Protein Albumin Globulin Albumin/Globulin Ratio TSH Ur Bilirubin Confirm Urine RBC None seen Urine WBC 0-1/hpf Ur Squamous Epith Cells None seen Urine Bacteria None seen Vol Urine Centrifuged 10ml (spun) Nasal Screen MRSA (PCR) U Opiates 300ng/mL cut Ur Oxycodone Screen Urine Methadone Screen Ur Barbiturates Screen U Tricyclic Antidepress Ur Phencyclidine Scrn Ur Amphetamines Screen U Methamphetamines Scrn Ur MDMA Scrn (Ecstasy) U Benzodiazepines Scrn Urine Cocaine Screen U Marijuana (THC) Screen Urine pH Urine Specific [place] Ur Creatinine PFSH Medical History Incontinence of urine Incontinence Hx of cancer antigen 125 (CA-125) measurement Cancer Pulmonary nodules CVA (cerebral vascular accident) Stroke Surgical History Hx of breast biopsy History of hip replacement Family History Father Hypertension Heart disease Mother Breast cancer Social History marital status: household members: spouse lives independently: Yes occupational status: previously employed Smoking Status: Unknown if ever smoked alcohol intake: current substance use type: does not use and unknown Assessment & Plan Time-Based Coding :: [TOTAL MINUTES] spent with patient and on the chart (including review of chart, obtaining history, exam, reviewing outside data, placing orders, documenting exam and treatment plan, and counseling patient) on [DATE]. Quality VTE Deep Vein Thrombosis/Pulmonary Embolism Present on Admission: No
--- NOTE | 2025-07-03 13:06 | ST.IPCSEOM ---
Visit Care Team Role Provider Type Floresita King PA-C Family Provider [employer] Estimator Primary Care Provider Specialty: Medical Address: [address] [place], [address] Email: Freddy Reveles DO Emergency Provider Physician Referring Provider Specialty: Emergency Medicine Address: [address] [place] [address], [address] Phone: Fax: Email: [email or web address] MD Admit Provider Physician Attending Provider Specialty: Internal Medicine Address: [address] [place] [address], [id number] Email: [email or web address] Diagnoses Cerebral infarction, unspecified (07/02/25) Past Medical History (Last Reviewed 07/23/24 @ 14:39 by Ignacio Mccoy DO) Cancer (Medical) CVA (cerebral vascular accident) (Medical) Hx of cancer antigen 125 (CA-125) measurement (Medical) Incontinence (Medical) Incontinence of urine (Medical) Pulmonary nodules (Medical) Stroke (Medical) Speech-Language Pathology Swallow Evaluation [employer] Clinical Swallow Evaluation Start: 07/03/25 12:28 Freq: Status: Active Protocol: Document 07/03/25 12:28 SS (Rec: 07/03/25 13:06 SS [email or web address]) Clinical Swallow Evaluation Session Time Visit Start Time 10:00 Visit Stop Time 10:35 Total Visit Minutes 35 Visit Information Visit Number [address] Ange Alcocer Reason for Referral Dysphagia secondary to CVA (chronic) and generalized weakness Setting Assessment Location Acute Care Visit Type Note Type Initial evaluation Next Note Type Next Note Type Treatment Note Patient Information Identification Type Name History Per H&P: 85-year-old female with past medical history of multiple CVAs past on Aggrenox but did not take her dose today, hypothyroidism, depression, hypertension and known pulm nodules presents with reported right facial drooping, confusion, slurred speech and some difficulty ambulating. Per report the patient started to have these new symptoms yesterday. The patient's states that she does have intermittent confusion over the last month or so today seems to be worse than usual. Otherwise no report of any recent fever, chills, nausea, vomiting, diarrhea, chest pain or shortness of. There is no report of focal weakness as well. In the emergency room, the patient was hemodynamically stable. The patient however was requiring 4 to 5 L oxygen per nasal cannula. Lab shows a WBC of 12 hemoglobin of 10, I am seeing 133 troponin initially 0.11 but repeat was 0.10. BNP level was 7560. UA was positive for UTI. CT angio of the head and neck shows no signs of acute stroke. Patient did have atrial fibrillation with RVR. CT angio of the chest shows no PE or signs of pneumonia. Dr. Desir of cardiology recommend to start Eliquis and continue diltiazem drip. Patient mentation did improve and close to normal per the patient's hospital. Clinical swallowing evaluation completed to assess current swallowing function, assess aspiration risk, and determine need for instrumental s wallow study. Subjective Chart reviewed and RN consulted. RN reported pt Observations demonstrating oral hold with all intake, requiring cueing to swallow. She also reported immediate cough with first sip of thin liquids, though no overt s/sx of aspiration following. 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 Son at bedside assisted in providing case history, though limited. She has a history of multiple strokes (2001, 2004,2017) and multiple TIAs and head injuries from falls. Pt?s son and pt denied s/ sx of dysphagia. However, pt was previously seen at this clinic in 2019 with report stating pt ?expressed c /o coughing with solids, particularly dry textures, to the extent of occasional vomiting from severity of cough. She denied coughing with liquids and reported some effort required for swallowing pills, although this typically is not a problem if she takes large pills one at a time.? Significant dysarthria noted today and at least mild-moderate cognitive communication impairment. Reported by Patient/Caregiver Other Symptoms Coughing,Difficulty swallowing solids Current Diet NPO Baseline Feeding Needs some assistance Method The IDDSI Framework Protocol: IDDSI.1 Objective Assessment Mental Status Alert,Responsive,Cooperative,Confused,Lethargic Oral Integrity WFL Dentition Within normal limits Lip Function Mild impairment Observation of Lips Left sided weakness/Drooping at Rest Pucker Reduced range of motion,Reduced strength,Left sided weakness/drooping Lip Retraction Reduced range of motion,Left sided weakness/Drooping Alternating Pucker/ Reduced range of motion,Incoordination Lip Retraction Tongue Function Mild impairment Observations of Deviates to the left Tongue at Rest Tongue Protrusion Deviates to the left,Reduced range of motion,Reduced strength Tongue Retraction Reduced range of motion,Reduced strength Tongue Deviates to the left,Reduced range of motion,Reduced Lateralization strength,Incoordination Jaw Function Mild impairment Observation of Jaw Deviates to the left at Rest Jaw Opening Reduced range of motion,Reduced strength Jaw Closing Reduced range of motion,Reduced strength Jaw Lateralization Deviates to the left,Reduced range of motion,Reduced strength,Incoordination Jaw Protrusion Deviates to the left,Reduced range of motion,Reduced strength Jaw Retraction Reduced range of motion,Reduced strength Hard/Soft Palate Within normal limits Function Respiratory Mild impairment Sufficiency Comment 3L via [place]. Oral health is good. Food and Liquid Trials Position During Upright (90 degrees) Assessment Liquids Trialed Ice chips,Thin (IDDSI 0) Solid Trials Purred (IDDSI 4),Soft & Bite-sized (IDDSI 6) Administration Type Tea spoon,Cup single sip,Straw,Self-feeding Oral Impairment Moderately impaired Oral Phase Comments Pt observed across trials of thin liquids (>3 oz water) via tsp, cup, and straw, puree via tsp (apple sauce), and soft/bite sized via tsp (diced peaches). Pt required set-up assistance but was able to feed self. Pt exhibited difficulty with bolus retrieval from tsp, unable to form seal around cup edge causing anterior loss of bolus. Pt exhibited adequate bolus retrieval from cup and ability to siphon from straw. Pt exhibited mild anterior loss of liquids d/t difficulty with oral containment given labial weakness. Pt exhibited prolonged bolus manipulation and reduced oral clearance resulting in moderate oral residue with left-sided buccal pocketing given lingual weakness and reduced left-sided sensation. This was most evident with soft and bite-sized texture. Pt required cued liquid wash and lingual sweep to clear pocketed residue with trials of soft/bite sized. Of note, it took her about 1-2 minutes to fully masticate and swallow the peaches. Pharyngeal Within functional limits Impairment Pharyngeal Phase Pt did not demonstrate overt s/sx of aspiration across Comments intake. Clear vocal quality immediately after swallows and pt denied globus sensation. However, cannot rule out silent aspiration without instrumental swallow study. Concern for pharyngeal phase dysphagia, such as increased pharyngeal residue, particularly given hx of dysphagia. Fatigue/Endurance Mild fatigue [place] Swallow Yes Protocol Results The [place] Swallow Protocol is an evidence-based swallow screening protocol to determine aspiration risk. This tool has been validated across a number of different patient diagnoses and in a number of clinical settings. This is the only screening instrument that both identifies aspiration risk and, when passed, is able to recommend specific oral diets without the need for further instrumental dysphagia testing. Based upon research by Drs. Nicholas Covarrubias and Fern Marte, this is a reliable and validated swallow screening protocol. Cognitive Screen: Difficulty responding and following instructions consistently. Results with 3oz water test: Pt unable to follow directions to take consecutive sips (unable to administer) Results with cracker: Did not administer given difficulty with masticating peaches The IDDSI Framework Protocol: IDDSI.1 Findings Swallowing Function Oropharyngeal phase dysphagia Severity of Swallow Mildly-moderately impaired Impairment Contributing Factors Reduced alertness or attention,Difficulty following to Swallow directions,Reduced oral strength/coordination/sensation Impairment ,Mastication inefficiency,Impaired oral-pharyngeal transport,Delayed swallow initiation Prognosis Fair Based on Cognitive status,Comorbidities,Duration of symptoms/ severity Comment Pt presents with moderate oral phase dysphagia characterized by difficulty with bolus retrieval, containment, manipulation, and clearance secondary to left-sided labial/lingual weakness with reduced sensation and concern for possible pharyngeal phase dysphagia given hx of dysphagia. Unable to rule out silent aspiration as pt unable to take consecutive sips d/t cognitive impairment. Additionally, pt denied sensation of pharyngeal residue, but sensation may be reduced d/t generalized weakness. Modified Barium Swallow Study (MBSS), to visualize and assess swallow function and anatomy, determine aspiration risk, make appropriate and updated diet and treatment recommendations, as well as to identify need for additional referrals. However, pt not currently appropriate given significant pain level when sitting upright and waxing/waning mentation. If no clinical improvements are made and overall status improves, strongly recommend MBSS in house to further assess swallow pathophysiology within the next few days. Recommend safest/most efficient least restrictive diet of minced and moist solids (IDDSI 5) and thin liquids ( IDDSI 0) with safe swallow strategies for oral phase pocketing and aspiration precautions. Based on pt?s good oral health status and overall immune function, pt currently remains at a low risk of pulmonary compromise associated with aspiration at this time. Provided education in the importance of oral care for reduced aspiration pneumonia risk, general safe swallow precautions, and diet recommendation. Pt and family verbalized understanding. Handout with pt's individualized safe swallow strategies left in pt's room on hospital board; pt and family verbalized understanding/agreement with diet recommendation and strategies pending MBSS to be completed as appropriate. MD notified to change diet. Impact on Safety and Risk for aspiration,Risk for inadequate nutrition/ Functioning hydration Recommendations Instrumental Yes Assessment Swallowing Treatment Yes Frequency Daily Duration During admission Recommended Solids Minced & Moist (IDDSI 5) Recommended Liquids Thin (IDDSI 0) Other - TID oral care Recommendations - 1:1 supervision given waxing/waning mentation - Aspiration precautions as below - MBSS pending overall medical/cognitive status - Hold PO intake (including medications) in pt not fully awake and alert or demonstrating s/sx of aspiration Safety Precautions/ 1 to 1 close supervision,Reduce distractions,Remain Swallowing upright (90 degrees) during all oral intake,Needs Recommendations verbal cues to use recommended strategies,Upright position at least 30 minutes after meals,Small bites and sips when eating,Slow rate; swallow between bites, Strict oral care after intake,Check for pocketing Medication Whole in Carrier,Crushed,Crushed in Carrier Recommendations Discharge detention facility Recommendations Referrals Recommended Dietary Referrals Education Patient/Caregiver Described results of evaluation,Patient expressed Education understanding of evaluation,Patient expressed agreement with goals & treatment plans,Family/caregivers expressed understanding of evaluation,Family/caregivers expressed agreement with goals & treatment plans Goals Short-term Goals 1. Patient will use compensatory meal strategies with 90% accuracy to increase safety with PO intake. 2. Patient will complete MBSS to further evaluate swallowing pathophysiology and determine next steps in POC. 3. Patient will increase mastication endurance to safely swallow Easy to Chew (EC7) consistencies in order to meet nutritional needs. Long-term Goals Patient will safely tolerate least restrictive diet consistency to allow for safe consumption of daily meals without s/sx of aspiration.
[2025-07-03] MEDS: METOPROLOL IR 25 MG TABLET PO ×2 (13:16→22:16)
--- NOTE | 2025-07-03 13:34 | PM.HP.1 ---
History of Present Illness History of Present Illness Date Patient Seen: 07/03/25 Time Patient Seen: 08:00 Chief complaint: Weakness/slurred speach Narrative: HPI 85-year-old female with past medical history of multiple CVAs past on Aggrenox but did not take her dose today, hypothyroidism, depression, hypertension and known pulm nodules presents with reported right facial drooping, confusion, slurred speech and some difficulty ambulating. Per report the patient started to have these new symptoms yesterday. The patient's states that she does have intermittent confusion over the last month or so today seems to be worse than usual. Otherwise no report of any recent fever, chills, nausea, vomiting, diarrhea, chest pain or shortness of. There is no report of focal weakness as well. In the emergency room, the patient was hemodynamically stable. The patient however was requiring 4 to 5 L oxygen per nasal cannula. Lab shows a WBC of 12 hemoglobin of 10, I am seeing 133 troponin initially 0.11 but repeat was 0.10. BNP level was 7560. UA was positive for UTI. CT angio of the head and neck shows no signs of acute stroke. Patient did have atrial fibrillation with RVR. CT angio of the chest shows no PE or signs of pneumonia. Dr. Desir of cardiology recommend to start Eliquis and continue diltiazem drip. Patient mentation did improve and close to normal per the patient's hospital. Patient remains in Afib with RVR at the time of my evaluation. She is sleepy but responds to questions and denies CP, SOB, palpitations or lightheadedness. PFSH Medical History Incontinence of urine Incontinence Hx of cancer antigen 125 (CA-125) measurement Cancer Pulmonary nodules CVA (cerebral vascular accident) Stroke Surgical History Hx of breast biopsy History of hip replacement Family History Father Hypertension Heart disease Mother Breast cancer Social History marital status: household members: spouse lives independently: Yes occupational status: previously employed Smoking Status: Unknown if ever smoked alcohol intake: current substance use type: does not use and unknown Meds Home Medications and Allergies Home Medications ?Medication ?Instructions ?Recorded ?Confirmed ?Type levothyroxine 100 mcg tablet 1 tab PO MOWEFR 01/10/18 10/18/24 History levothyroxine 88 mcg tablet 1 tab PO SUTUTHSA 01/10/18 10/18/24 History venlafaxine 37.5 mg 1 cap PO QPM 01/10/18 10/18/24 History capsule,extended release 24 hr omeprazole 20 mg capsule,delayed 200 mg PO DAILY 03/04/22 10/18/24 History release losartan 100 mg tablet 50 mg PO DAILY 02/24/23 10/18/24 History albuterol sulfate 90 mcg/actuation 2 puff inhalation Q6H PRN 03/01/23 10/18/24 Rx aerosol inhaler shortness of breath or wheezing #6.7 grams lidocaine 5 % topical gel 1 ea topical BID PRN pain #10 grams 04/05/24 10/18/24 Rx pramoxine 1 % topical foam 1 applic GA TID #15 grams 04/05/24 10/18/24 Rx (Proctofoam) vits no.126-ferrous fum tab PO 05/01/24 10/18/24 History 28 mg iron-folic acid 800 mcg tablet (Classic ) lactulose 20 gram/30 mL oral 20 g (30 mL) PO BID PRN 05/04/24 10/18/24 Rx solution constipation #1,200 mL vibegron 75 mg tablet (Gemtesa) 75 mg PO DAILY #90 tabs 10/09/24 10/18/24 Rx clotrimazole 1 % topical cream applic topical BID 10/18/24 10/18/24 History hydroxyurea (sickle cell) 200 mg 200 mg PO DAILY 10/18/24 10/18/24 History capsule (Droxia) ketoconazole 2 % topical cream 1 applic topical 10/18/24 10/18/24 History losartan 50 mg tablet 50 mg PO DAILY 10/18/24 10/18/24 History cefdinir 300 mg capsule 300 mg PO BID #10 caps 05/27/25 Rx hydrocortisone acetate 25 mg 25 mg GA BID #24 ea 05/27/25 Rx rectal suppository (Anusol-HC) phenazopyridine 100 mg tablet 100 mg PO TID PRN pain 6 doses #6 05/27/25 Rx (Pyridium) tabs cefdinir 300 mg capsule 300 mg PO BID 10 days #20 caps 06/27/25 Rx metronidazole 500 mg tablet 500 mg PO TID #30 tabs 06/27/25 Rx Allergies Allergy/AdvReac Type Severity Reaction Status Date / Time Penicillins (PENICILLINS) Allergy Severe LESIONS IN Verified 07/02/25 19:10 HER MOUTH ciprofloxacin (CIPROFLOXACIN) Allergy Intermediate tongue Verified 07/02/25 19:10 inflammation Review of Systems Review of Systems Narrative: Fourteen system review of systems performed and pertinent positives and negatives are noted in the HPI. Otherwise review of systems negative Exam Vital Signs (past 8 hours): - 07/03/25 05:52 07/03/25 06:24 07/03/25 06:30 Temperature 97.9 F Pulse Rate 123 H 123 H Respiratory Rate 27 H 29 H Blood Pressure 93/55 L 94/51 L Pulse Oximetry 93 94 Oxygen Delivery Method Oxygen Flow Rate 4 07/03/25 06:30 07/03/25 06:52 07/03/25 07:00 Temperature Pulse Rate 126 H 122 H Respiratory Rate 29 H 27 H Blood Pressure 98/55 L 98/55 L Pulse Oximetry 93 94 Oxygen Delivery Method Oxygen Flow Rate 3 07/03/25 07:00 07/03/25 07:30 07/03/25 07:30 Temperature Pulse Rate 123 H 121 H Respiratory Rate 27 H 28 H Blood Pressure 92/54 L Pulse Oximetry 92 93 Oxygen Delivery Method Oxygen Flow Rate 07/03/25 07:36 07/03/25 07:36 07/03/25 08:00 Temperature 97.6 F Pulse Rate 125 H Respiratory Rate 29 H Blood Pressure 94/50 L Pulse Oximetry 89 L Oxygen Delivery Method Oxygen Flow Rate 07/03/25 08:00 07/03/25 08:00 07/03/25 08:00 Temperature Pulse Rate 125 H Respiratory Rate 30 H Blood Pressure 105/53 L Pulse Oximetry 94 Oxygen Delivery Method Nasal Cannula Oxygen Flow Rate 07/03/25 08:22 07/03/25 08:30 07/03/25 08:30 Temperature Pulse Rate 135 H 127 H Respiratory Rate 27 H Blood Pressure 105/53 L 93/55 L Pulse Oximetry 94 Oxygen Delivery Method Oxygen Flow Rate 07/03/25 09:00 07/03/25 09:00 07/03/25 09:30 Temperature Pulse Rate 123 H 119 H Respiratory Rate 30 H 29 H Blood Pressure 97/56 L Pulse Oximetry 95 95 Oxygen Delivery Method Oxygen Flow Rate 07/03/25 09:30 07/03/25 09:39 07/03/25 09:39 Temperature Pulse Rate 118 H Respiratory Rate 26 H Blood Pressure 86/50 L 94/54 L Pulse Oximetry 95 Oxygen Delivery Method Oxygen Flow Rate 07/03/25 10:00 07/03/25 10:00 07/03/25 10:30 Temperature Pulse Rate 123 H Respiratory Rate 31 H Blood Pressure 101/59 L 109/71 Pulse Oximetry 92 Oxygen Delivery Method Oxygen Flow Rate 07/03/25 10:30 07/03/25 10:30 07/03/25 11:00 Temperature Pulse Rate 123 H Respiratory Rate 30 H Blood Pressure 109/71 117/73 Pulse Oximetry 93 Oxygen Delivery Method Oxygen Flow Rate 07/03/25 11:00 07/03/25 11:30 07/03/25 11:30 Temperature Pulse Rate 122 H 118 H Respiratory Rate 30 H 28 H Blood Pressure 108/63 Pulse Oximetry 92 93 Oxygen Delivery Method Oxygen Flow Rate 07/03/25 12:00 07/03/25 12:00 07/03/25 12:00 Temperature 97.2 F L Pulse Rate 107 H Respiratory Rate 27 H Blood Pressure 106/57 L Pulse Oximetry 93 Oxygen Delivery Method Oxygen Flow Rate 07/03/25 12:00 07/03/25 12:30 07/03/25 12:30 Temperature Pulse Rate 121 H Respiratory Rate 30 H Blood Pressure 119/74 Pulse Oximetry 93 Oxygen Delivery Method Nasal Cannula Oxygen Flow Rate 07/03/25 13:00 07/03/25 13:01 07/03/25 13:01 Temperature Pulse Rate 119 H 116 H Respiratory Rate 32 H 31 H Blood Pressure 121/67 Pulse Oximetry 93 93 Oxygen Delivery Method Oxygen Flow Rate Fraction of Inspired Oxygen 36 SaO2/FiO2 Ratio 261 Oxygen Delivery Method Nasal Cannula Oxygen Flow Rate 3 Narrative Exam Narrative: Vital signs reviewed Sleepy, awakes to voice, well-nourished, ill-appearing Tachycardic, irregular rate, no murmurs Clear to auscultation in anterior and lateral lung serrano Soft, nontender, nondistended, positive bowel sounds Warm without edema Globally weak, otherwise neuro exam nonfocal Pleasant and cooperative Objective Labs 07/03/25 09:25 07/03/25 09:25 Labs: Laboratory Results - last 24 hr 07/02/25 07/02/25 07/02/25 19:08 19:08 19:30 WBC 12.1 H RBC 3.77 L Hgb 10.9 L Hct 34.2 L MCV 90.8 MCH 28.8 MCHC 31.8 RDW 16.4 H Plt Count 644 H Neut % (Auto) 93.5 H Lymph % (Auto) 3.4 L [place] % (Auto) 3.0 Eos % (Auto) 0.0 L Baso % (Auto) 0.1 Neut # (Auto) 43877 H Lymph # (Auto) 400 L [place] # (Auto) 400 Eos # (Auto) 0 Baso # (Auto) 0 PT 16.0 H INR 1.4 H APTT 30 VBG pH VBG pCO2 VBG pO2 VBG HCO3 VBG Total CO2 VBG O2 Saturation VBG Base Excess FiO2 % Sodium 133 L Potassium 3.4 Chloride 97 L Carbon Dioxide 28 BUN 16 Creatinine 0.89 Estimated GFR > 60 BUN/Creatinine Ratio 18.0 Glucose 101 H POC Whole Bld Glucose Lactate 1.9 Calcium 8.4 Total Bilirubin 0.5 AST 96 H ALT 27 Alkaline Phosphatase 115 Total Creatine Kinase 322 H D Troponin I 0.119 H Cancelled NT-Pro-B Natriuret Pep 7560 H Total Protein 6.9 Albumin 3.2 L Globulin 3.7 Albumin/Globulin Ratio 0.9 L TSH 0.704 Ur Bilirubin Confirm Urine RBC Urine WBC Ur Squamous Epith Cells Urine Bacteria Vol Urine Centrifuged Nasal Screen MRSA (PCR) U Opiates 300ng/mL cut Ur Oxycodone Screen Urine Methadone Screen Ur Barbiturates Screen U Tricyclic Antidepress Ur Phencyclidine Scrn Ur Amphetamines Screen U Methamphetamines Scrn Ur MDMA Scrn (Ecstasy) U Benzodiazepines Scrn Urine Cocaine Screen U Marijuana (THC) Screen Urine pH Urine Specific Jeannette Ur Creatinine 07/02/25 07/02/25 07/03/25 21:28 21:59 01:49 WBC RBC Hgb Hct MCV MCH MCHC RDW Plt Count Neut % (Auto) Lymph % (Auto) [place] % (Auto) Eos % (Auto) Baso % (Auto) Neut # (Auto) Lymph # (Auto) [place] # (Auto) Eos # (Auto) Baso # (Auto) PT INR APTT VBG pH 7.54 H VBG pCO2 31.0 L VBG pO2 109 H VBG HCO3 27 VBG Total CO2 25 VBG O2 Saturation 99 H VBG Base Excess 4.2 H FiO2 % 40.0 % Sodium Potassium Chloride Carbon Dioxide BUN Creatinine Estimated GFR BUN/Creatinine Ratio Glucose POC Whole Bld Glucose Lactate Calcium Total Bilirubin AST ALT Alkaline Phosphatase Total Creatine Kinase Troponin I 0.103 H NT-Pro-B Natriuret Pep Total Protein Albumin Globulin Albumin/Globulin Ratio TSH Ur Bilirubin Confirm Urine RBC Urine WBC Ur Squamous Epith Cells Urine Bacteria Vol Urine Centrifuged Nasal Screen MRSA (PCR) Not detected U Opiates 300ng/mL cut Ur Oxycodone Screen Urine Methadone Screen Ur Barbiturates Screen U Tricyclic Antidepress Ur Phencyclidine Scrn Ur Amphetamines Screen U Methamphetamines Scrn Ur MDMA Scrn (Ecstasy) U Benzodiazepines Scrn Urine Cocaine Screen U Marijuana (THC) Screen Urine pH Urine Specific Jeannette Ur Creatinine 07/03/25 07/03/25 07/03/25 05:29 09:25 11:10 WBC 8.9 RBC 3.31 L Hgb 9.9 L Hct 29.8 L MCV 90.1 MCH 29.8 MCHC 33.1 RDW 16.5 H Plt Count 437 H Neut % (Auto) 93.4 H Lymph % (Auto) 3.8 L [place] % (Auto) 2.6 L Eos % (Auto) 0.1 L Baso % (Auto) 0.1 Neut # (Auto) 8300 H Lymph # (Auto) 300 L [place] # (Auto) 200 Eos # (Auto) 0 Baso # (Auto) 0 PT INR APTT VBG pH VBG pCO2 VBG pO2 VBG HCO3 VBG Total CO2 VBG O2 Saturation VBG Base Excess FiO2 % Sodium 133 L Potassium 3.5 Chloride 101 Carbon Dioxide 26 BUN 17 Creatinine 0.68 Estimated GFR > 60 BUN/Creatinine Ratio 25.0 H Glucose 113 H POC Whole Bld Glucose 126 H Lactate Calcium 7.7 L Total Bilirubin AST ALT Alkaline Phosphatase Total Creatine Kinase Troponin I NT-Pro-B Natriuret Pep Total Protein Albumin Globulin Albumin/Globulin Ratio TSH Ur Bilirubin Confirm Negative Urine RBC Urine WBC Ur Squamous Epith Cells Urine Bacteria Vol Urine Centrifuged Nasal Screen MRSA (PCR) U Opiates 300ng/mL cut Negative Ur Oxycodone Screen Negative Urine Methadone Screen Negative Ur Barbiturates Screen Negative U Tricyclic Antidepress Negative Ur Phencyclidine Scrn Negative Ur Amphetamines Screen Negative U Methamphetamines Scrn Negative Ur MDMA Scrn (Ecstasy) Negative U Benzodiazepines Scrn Negative Urine Cocaine Screen Negative U Marijuana (THC) Screen Negative Urine pH Normal Urine Specific Jeannette Normal Ur Creatinine Normal 07/03/25 11:33 WBC RBC Hgb Hct MCV MCH MCHC RDW Plt Count Neut % (Auto) Lymph % (Auto) [place] % (Auto) Eos % (Auto) Baso % (Auto) Neut # (Auto) Lymph # (Auto) [place] # (Auto) Eos # (Auto) Baso # (Auto) PT INR APTT VBG pH VBG pCO2 VBG pO2 VBG HCO3 VBG Total CO2 VBG O2 Saturation VBG Base Excess FiO2 % Sodium Potassium Chloride Carbon Dioxide BUN Creatinine Estimated GFR BUN/Creatinine Ratio Glucose POC Whole Bld Glucose Lactate Calcium Total Bilirubin AST ALT Alkaline Phosphatase Total Creatine Kinase Troponin I NT-Pro-B Natriuret Pep Total Protein Albumin Globulin Albumin/Globulin Ratio TSH Ur Bilirubin Confirm Urine RBC None seen Urine WBC 0-1/hpf Ur Squamous Epith Cells None seen Urine Bacteria None seen Vol Urine Centrifuged 10ml (spun) Nasal Screen MRSA (PCR) U Opiates 300ng/mL cut Ur Oxycodone Screen Urine Methadone Screen Ur Barbiturates Screen U Tricyclic Antidepress Ur Phencyclidine Scrn Ur Amphetamines Screen U Methamphetamines Scrn Ur MDMA Scrn (Ecstasy) U Benzodiazepines Scrn Urine Cocaine Screen U Marijuana (THC) Screen Urine pH Urine Specific Jeannette Ur Creatinine Assessment & Plan Assessment & Plan narrative: UTI Metabolic encephalopathy due to infection Based on dipstick in the emergency room, the patient has a UTI. No evidence of sepsis. Urine culture pending. Prior urine cultures with pansensitive E coli and Klebsiella resistant to ampicillin and Bactrim. Continue ceftriaxone Follow-up culture results AFib with RVR Remains tachycardic despite diltiazem drip at 10 mg. Early this morning blood pressure was limiting the ability to titrate up the diltiazem. At that time digoxin was started. Blood pressure now improved. Continue digoxin that was started this morning. Giving for IV doses then transitioning to p.o. tomorrow Initiate metoprolol 25 mg b.i.d. Titrate off diltiazem GTT Hypothyroidism Clinically stable Continue Synthroid Hypertension BP was soft this am, now normotensive CTM especially with initiation of metoprolol Time-Based Coding :: 60 minutes spent with patient and on the chart (including review of chart, obtaining history, exam, reviewing outside data, placing orders, documenting exam and treatment plan, and counseling patient) on [DATE]. Quality VTE Deep Vein Thrombosis/Pulmonary Embolism Present on Admission: No
--- NOTE | 2025-07-03 14:18 | OT.IPNOTE ---
Per nursing best to wait til tomorrow for OT eval as pt not medically appropriate at this time.
--- NOTE | 2025-07-03 14:49 | PT-IP ANOTE ---
Pt remains in afib with RVR uncontrolled per RN. Holding PT evaluation for the day, will continue to follow tomorrow.
--- NOTE | 2025-07-03 15:44 | CM.DANOTE ---
Patient is an 85 yo female who was admitted INPT Status on 07/02/25 for UTI, AFIB with RVR, and CVA vs TIA r/o. Pt has [facility] and [facility] for insurance and her PCP is Floresita King. EMR was reviewed. Per MD, pt with increased confusion and hx of CVA and admitted with UTI, AFIB with RVR, and CVA r/o. Pt was on 3LO2 but currently weaned to room air. PT/OT on hold for today due to increased heart rate and bp issues. Will attempt again tomorrow if more medically appropriate. ST eval and recommending a modified diet at this time. SW met bedside with pt and spouse and explained role and they confirm they live at home in [place] and pt typically uses a FWW for mobility and does not drive her spouse provides transportation. They have local supportive son who can assist as needed. Pt has hx of utilizing [facility] when she was last admitted in 2021 and discharged to home with family assist and [facility]. Spouse Gorge is 1) POA and 2)POA is [facility]. Spouse preference is home when stable pending how pt does with PT/OT and hopeful to avoid SNF if they can but aware that pt will need to work with PT/OT to see how she ambulates. Plan: SW to follow closely for PT/OT eval and recommendations to determine discharge planning needs. EMMETT Rodriguez Discharge Planning/Care Management CM Discharge Assessment Start: 07/03/25 00:06 Freq: Status: Active Protocol: Document 07/03/25 15:42 BF (Rec: 07/03/25 15:44 BF [id number]) Discharge Planning Assessment Assigned Discharge EMMETT [employer] Provider Floresita King Insurance Medicare DPOA/Assigned spouse Gorge Designee Name Contact Information [phone] Advance Directives? Yes Advance Directives No on File History Provided By Patient,Significant Other,Medical Record Has Patient been No admitted in last 30 days? Comment last admit in 2021 Prior Living House Arrangements Household Members spouse Type of Relies on Others transporation used prior to admit Independent with ADL Yes: somewhat 's Is patient alert and Yes oriented? Needs Assistance Meal Prep,Managing Medications,Home Chores / Shopping With Caregiver for No Another DME Already Rented / FWW / Walker Owned Comment Pending PT/OT eval when more medically appropriate Barriers to No Discharge Discharge Plan Home with Home Health Community Services Physical Therapy,Occupational Therapy Transportation Spouse if home Arrangement Additional Comment Pending PT/OT eval when more medically appropriate Whiteboard Updated Yes in Patient Room with name and ext. # of Healthcare Science Specialist Review Status In Process Please Provide Date 07/03/25 Initial DC Assessment Was Performed Next Review Type Continued Stay Review
[2025-07-03] MEDS: PHENYLEPH/MINERAL OIL/PETROLAT 57 GM OINT 1 APPLIC PR ×2 (18:10→22:27)
[2025-07-03] MEDS: HYDROCORTISONE 2.5% CREAM 30 GM 1 APPLIC TOP ×2 (18:11→22:27)
[2025-07-03] MEDS: DIGOXIN 500 MCG/2 ML AMPUL 125 MCG IV (22:18)
[2025-07-04] VITALS (55 sets, daily range): BP systolic 80–154; BP diastolic 49–83; PULSE 80–118; RESP 19–54; O2SAT 92–97
[2025-07-04] MEDS: DIGOXIN 500 MCG/2 ML AMPUL 125 MCG IV (02:54)
[2025-07-04] MEDS: PANTOPRAZOLE DR 20 MG TABLET PO (07:02)
[2025-07-04] MEDS: LEVOTHYROXINE 100 MCG TABLET PO (07:02)
[2025-07-04 08:05] LABS: Blood Urea Nitrogen 16 mg/dL (7-17); Calcium 7.9 mg/dL (8.4-10.2); Carbon Dioxide 29 mmol/L (22-32); Chloride 102 mmol/L (98-107); Estimated Glomerular Filt Rate > 60 mL/min (>60); Glucose 110 mg/dL (70-99); HEMOLYSIS 15 (0-50); Potassium 4.4 mmol/L (3.4-5.1); Sodium 134 mmol/L (137-145)
[2025-07-04] MEDS: DIGOXIN 0.125 MG TABLET PO (09:52)
[2025-07-04] MEDS: HYDROCORTISONE 2.5% CREAM 30 GM 1 APPLIC TOP ×4 (09:52→21:26)
[2025-07-04] MEDS: APIXABAN 5 MG TABLET PO ×2 (09:52→21:25)
[2025-07-04] MEDS: METOPROLOL IR 25 MG TABLET PO ×2 (09:52→21:24)
[2025-07-04] MEDS: PHENYLEPH/MINERAL OIL/PETROLAT 57 GM OINT 1 APPLIC PR ×4 (09:53→21:25)
--- NOTE | 2025-07-04 12:59 | DIET.CONS ---
Dietary Consultation Note Admission Date: 07/02/2025 23:03 Assessment: 85 y F admitted for UTI/Afib with RVR. Dietitian screened for low MNA score. Met with pt and family at bedside. Report gradual weight loss of around 10 lb over the course of 4-5 months. Noticed a decline in PO intakes over the last month with smaller than normal breakfast by 50%, only a few crackers and piece of cheese for lunch, and some soup at dinner. Pt reports reasoning for decreased PO intakes is lack of appetite. Pt eating, ate about 50% of meat portion on plate and was actively eating the yogurt and enjoying it. NFPE not completed d/t meal time. Ht: 157.48 cm Wt: 58 kg BMI: 23.4 UBW: 140 lb (63.6 kg) 4-5 months ago per family (-9% weight loss within 6 months, significant but non-severe) Last BM: 07/04/25 (07/04/25 09:00) MNA: 10 Garrick Score: 17 Diet: 07/02/25 Breakfast Heart Healthy Diet Diet Modifications: 07/03/25 Lunch Dysphagia Diet Diet Modifications: 1:1 supervision, hold if not alert, TID oral care Food Texture: Level 5 - Minced & Moist Liquid Consistency: Level 0 - Thin Heart Healthy Diet Diet Modifications: Sodium Level: 2 gm Sodium Food Texture: Level 7 - Regular Liquid Consistency: Level 0 - Thin Nutrition Percent Meal Consumed 25% 07/04/25 09:00 Percent Meal Consumed 50% 07/03/25 18:00 Percent Meal Consumed 25% 07/03/25 12:00 Percent Meal Consumed 0% 07/03/25 09:57 Labs: RBC 3.31 X10^6/uL (4.0-5.2) L 07/03/25 09:25 Hgb 9.9 g/dL (12.0-16.0) L 07/03/25 09:25 Hct 29.8 % (36-46) L 07/03/25 09:25 Creatinine 0.83 mg/dL (0.52-1.04) 07/04/25 07:30 Lactate 1.9 mmol/L (0.7-2.1) 07/02/25 19:08 NT-Pro-B Natriuret Pep 7560 pg/mL (<450) H 07/02/25 19:08 Nutrition Diagnosis: Inadequate oral intakes r/t decreased appetite aeb <60% of normal estimated intakes Unintentional weight loss r/t decreased appetite aeb 9% weight loss in 6 months, (significant but non-severe) Interventions: They deny Ensure at this time. Discussed potential to mix Ensure with other ingredients (yogurt/ice cream) for better taste and encouraged high kcal/protein drink. For now, added yemeni yogurt with meals. Discussed small freq meals and focus on protein containing foods EER: 1500 kcals (25 kcals/kg) 60 g protein (1g/kg per age) Monitoring/Evaluations: PO intakes Electronically Signed by: Breana Rodney 07/04/25 12:59 Clinical Dietitian [address] [address]
--- NOTE | 2025-07-04 14:37 | OT.IPNOTE ---
Attempted OT eval and pt is dependent for all mobility needs and total A for bed mobility. Pt also dependent for all ADL needs and now needing assist for feeding. Prior to hospitalization 1 week ago able to assist to eat at times, but dependent for all other ADL and mobility needs needs. Pt's family states considering Hospice for pt, case management notified. Discharge OT services
--- NOTE | 2025-07-04 14:40 | P.PN_ITS ---
Subjective Subjective Date Patient Seen: 07/04/25 Time Patient Seen: 07:55 Interval history: 85-year-old female with past medical history of multiple CVAs past on Aggrenox but did not take her dose today, hypothyroidism, depression, hypertension and known pulm nodules presents with reported right facial drooping, confusion, slurred speech and some difficulty ambulating. Per report the patient started to have these new symptoms yesterday. The patient's states that she does have intermittent confusion over the last month or so today seems to be worse than usual. Otherwise no report of any recent fever, chills, nausea, vomiting, diarrhea, chest pain or shortness of. There is no report of focal weakness as well. In the emergency room, the patient was hemodynamically stable. The patient however was requiring 4 to 5 L oxygen per nasal cannula. Lab shows a WBC of 12 hemoglobin of 10, I am seeing 133 troponin initially 0.11 but repeat was 0.10. BNP level was 7560. UA was positive for UTI. CT angio of the head and neck shows no signs of acute stroke. Patient did have atrial fibrillation with RVR. CT angio of the chest shows no PE or signs of pneumonia. Dr. Desir of cardiology recommend to start Eliquis and continue diltiazem drip. Patient mentation did improve and close to normal per the patient's hospital. Patient remains in Afib with RVR at the time of my evaluation. She is sleepy but responds to questions and denies CP, SOB, palpitations or lightheadedness. 07/04: Patient reports feeling better, though persistently weak. Exam Narrative: Vital signs reviewed Sleepy, awakes to voice, well-nourished, ill-appearing Tachycardic, irregular rate, no murmurs Clear to auscultation in anterior and lateral lung serrano Soft, nontender, nondistended, positive bowel sounds Warm without edema Globally weak, otherwise neuro exam nonfocal Pleasant and cooperative UTI Metabolic encephalopathy due to infection Based on dipstick in the emergency room, the patient has a UTI. No evidence of sepsis. Urine culture pending. Prior urine cultures with pansensitive E coli and Klebsiella resistant to ampicillin and Bactrim. * Continue ceftriaxone * Follow-up culture results, negative to date AFib with RVR Remains tachycardic despite diltiazem drip at 10 mg. Early this morning blood pressure was limiting the ability to titrate up the diltiazem. At that time digoxin was started. Blood pressure now improved. * Continue digoxin that was loaded on admission. * Continue metoprolol 25 mg b.i.d. * Titrate off diltiazem GTT Hypothyroidism Clinically stable * Continue Synthroid Hypertension * CTM especially with initiation of metoprolol DVT prophylaxis: Eliquis Exam Vital Signs (past 8 hours): - 07/04/25 06:58 07/04/25 06:58 07/04/25 07:00 Pulse Rate 91 H Respiratory Rate 19 Blood Pressure 108/56 L 108/62 Pulse Oximetry 97 07/04/25 07:00 07/04/25 07:16 07/04/25 07:16 Pulse Rate 89 98 H Respiratory Rate 22 25 H Blood Pressure 117/75 Pulse Oximetry 97 96 07/04/25 07:18 07/04/25 07:18 07/04/25 07:30 Pulse Rate 100 H Respiratory Rate 27 H Blood Pressure 141/69 H 140/63 Pulse Oximetry 95 07/04/25 07:30 07/04/25 08:00 07/04/25 08:00 Pulse Rate 103 H 105 H Respiratory Rate 27 H 30 H Blood Pressure 144/70 H Pulse Oximetry 94 93 07/04/25 08:31 07/04/25 08:31 07/04/25 09:00 Pulse Rate 101 H 99 H Respiratory Rate 22 21 Blood Pressure 107/56 L Pulse Oximetry 94 96 07/04/25 09:00 07/04/25 09:30 07/04/25 09:30 Pulse Rate 94 H Respiratory Rate 20 Blood Pressure 90/58 L 102/59 L Pulse Oximetry 97 07/04/25 10:00 07/04/25 10:01 07/04/25 10:01 Pulse Rate 118 H 116 H Respiratory Rate 31 H 30 H Blood Pressure 151/79 H Pulse Oximetry 93 93 07/04/25 10:30 07/04/25 10:30 07/04/25 11:00 Pulse Rate 110 H Respiratory Rate 27 H Blood Pressure 133/74 113/60 Pulse Oximetry 92 07/04/25 11:00 07/04/25 11:30 07/04/25 11:30 Pulse Rate 85 94 H Respiratory Rate 25 H 28 H Blood Pressure 80/53 L Pulse Oximetry 96 94 07/04/25 11:32 07/04/25 11:32 07/04/25 12:00 Pulse Rate 82 80 Respiratory Rate 32 H 23 Blood Pressure 115/62 Pulse Oximetry 95 97 07/04/25 12:00 07/04/25 12:30 07/04/25 12:30 Pulse Rate 89 Respiratory Rate 30 H Blood Pressure 103/55 L 146/76 H Pulse Oximetry 95 07/04/25 13:00 07/04/25 13:00 07/04/25 13:30 Pulse Rate 97 H Respiratory Rate 31 H Blood Pressure 121/70 112/61 Pulse Oximetry 96 07/04/25 13:30 07/04/25 14:00 07/04/25 14:00 Pulse Rate 93 H 97 H Respiratory Rate 28 H 28 H Blood Pressure 99/70 Pulse Oximetry 96 97 07/04/25 14:04 Pulse Rate 97 H Respiratory Rate 28 H Blood Pressure Pulse Oximetry 96 Fraction of Inspired Oxygen 36 SaO2/FiO2 Ratio 261 Oxygen Delivery Method Nasal Cannula Oxygen Flow Rate 3 Objective Labs 07/03/25 09:25 07/04/25 07:30 Labs: Laboratory Results - last 24 hr 07/04/25 07:30 Sodium 134 L Potassium 4.4 Chloride 102 Carbon Dioxide 29 BUN 16 Creatinine 0.83 Estimated GFR > 60 BUN/Creatinine Ratio 19.3 Glucose 110 H Calcium 7.9 L PFSH Medical History Incontinence of urine Incontinence Hx of cancer antigen 125 (CA-125) measurement Cancer Pulmonary nodules CVA (cerebral vascular accident) Stroke Surgical History Hx of breast biopsy History of hip replacement Family History Father Hypertension Heart disease Mother Breast cancer Social History marital status: household members: spouse lives independently: Yes occupational status: previously employed Smoking Status: Unknown if ever smoked alcohol intake: current substance use type: does not use and unknown Quality VTE Deep Vein Thrombosis/Pulmonary Embolism Present on Admission: No [facility] PROFEE Access Nurse Document charge(s): No Charge Codes Subsequent inpatient/observation care: [id number]
--- NOTE | 2025-07-04 14:44 | PT.IIE ---
Current Diagnoses Cerebral infarction, unspecified (07/02/25) Surgical History (Last Reviewed 07/03/25 @ 13:36 by Aneg Alcocer MD) History of hip replacement Hx of breast biopsy Medical History (Last Reviewed 07/03/25 @ 13:36 by Ange Alcocer MD) Cancer CVA (cerebral vascular accident) Hx of cancer antigen 125 (CA-125) measurement Incontinence Incontinence of urine Pulmonary nodules Stroke Physical Therapy Inpatient Evaluation/Re-Eval M2 PT-IP Current Condition Start: 07/04/25 14:34 Freq: NEEDED Status: Active Protocol: Document 07/04/25 14:35 KJ (Rec: 07/04/25 14:44 KJ [id number]) Physical Therapy Current Condition Current Condition Evaluation Date 07/04/25 Treatment Diagnosis Impaired mobility M3 PT-IP Subjective Start: 07/04/25 14:34 Freq: NEEDED Status: Active Protocol: Document 07/04/25 14:35 KJ (Rec: 07/04/25 14:44 KJ [id number]) Subjective Physical Therapy Visit Type Type Initial Evaluation Visit Start Time 14:04 Visit Stop Time 14:30 Physical Therapy Visit Comments 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 Pt agrees to participate in therapy Therapy Pain Assessment Pain When Pain Assessed During Mobility Pain Present Pain Present Pain Reported Location Bilateral Shoulder Description Aching Pain Management Modification of Treatment Techniques Left Hip Description Aching Pain Management Modification of Treatment Techniques M4 PT-IP Mobility and Gait Start: 07/04/25 14:34 Freq: NEEDED Status: Active Protocol: Document 07/04/25 14:35 KJ (Rec: 07/04/25 14:44 KJ [id number]) PT-Bed Mobility Assessment Rolling Level of Assist Maximal Assistance Supine to Sit Supine to Sit Maximum Assistance Sit to Supine Sit to Supine Maximum Assistance Scooting Scooting to Edge of Dependent Bed PT-Transfer Assessment Comments Mobility Comments Pt is unable to stand. Sitting balance is poor. PT-Balance Assessment Sitting Balance and Reactions Static Sitting Poor Balance Ability Dynamic Sitting Poor Balance Ability M5 PT-IP Objective Assessments Start: 07/04/25 14:34 Freq: NEEDED Status: Active Protocol: Document 07/04/25 14:35 KJ (Rec: 07/04/25 14:44 KJ [id number]) Orientation Orientation/Cognition Level of Alertness Lethargic Comments Encouragement required to keep eyes open. Gross Range of Motion Upper Extremity ROM Assessment Bilaterally Impaired Impairments shoulders Lower Extremity ROM Assessment Bilaterally Impaired Impairments ankle plantarflex contractures knees lack full ext R>L Strength Upper Extremity Strength Elbow 4/5 bilat Hand 4/5 R, 3/5 L M6 PT-IP Treatment Start: 07/04/25 14:34 Freq: NEEDED Status: Active Protocol: Document 07/04/25 14:35 KJ (Rec: 07/04/25 14:44 KJ [id number]) Physical Therapy Treatment Other Treatments Other Treatment Worked with patient on supine to sit and sitting Performed balance. Pt tends to push backward in sitting. Provided verbal and tactile cues to maintain balance. M7 PT-IP Assessment and Plan Start: 07/04/25 14:34 Freq: NEEDED Status: Active Protocol: Document 07/04/25 14:35 KJ (Rec: 07/04/25 14:44 KJ [id number]) PT Summary Assessment and Plan Potential Rehabilitation Poor Potential Status of Condition Evolving at Evaluation Summary Impairments Pain,ROM,Strength,Bed Mobility,Activity Tolerance Assessment Summary Pt with limited mobility prior to this illness, required max assist for transfers with a transfer device, used wheelchair. This limits her rehab potential Goals Bed Mobility Goal Moderate Assistance Other Goals sit at edge of bed w/SBA x 1 min Frequency of Treatment Frequency Of Once a Day Treatment Treatment Plan Physical Therapy Bed Mobility Training,Therapeutic Exercise Treatment Plan Other sitting balance Recommendations and Next Treatment Focus Recommendations To Nursing Amount of Assist Mechanical Lift Needed Discharge Recommendations Other Discharge [facility] care vs home with assistance (if this can be Recommendations provided by family)
--- NOTE | 2025-07-04 15:06 | CM.DPC ---
CM spoke with patient's family at bedside. They are open to Hospice at home. Not interested in placement. Patient's will be in later today and tomorrow. Cm to follow up in the AM.
[2025-07-04] MEDS: VENLAFAXINE ER 37.5 MG CAP PO (16:49)
--- NOTE | 2025-07-04 17:34 | PC.NURSE ---
Pt in a fib, going in and out of a flutter. MD made aware, will continue to monitor. Stable on 3L NC. Little appetite, 1:1, takes pills with apple sauce. Purwick in place, with very low output. Multiple runny bms, pt very sensitive around rectum. PT/OT eval done, [place] lift recommended. Unsure of what DC looks like. Family at bedside.
[2025-07-05] VITALS (49 sets, daily range): BP systolic 91–166; BP diastolic 51–80; PULSE 75–122; RESP 12–32; TEMP 35.9–36.6; O2SAT 93–98
[2025-07-05] MEDS: PANTOPRAZOLE DR 20 MG TABLET PO (06:49)
[2025-07-05] MEDS: METOPROLOL IR 25 MG TABLET PO ×2 (08:33→21:13)
[2025-07-05] MEDS: APIXABAN 5 MG TABLET PO ×2 (08:34→21:13)
[2025-07-05] MEDS: DIGOXIN 0.125 MG TABLET PO (08:34)
[2025-07-05] MEDS: VIBEGRON 75 MG 75 EACH PO (08:35)
[2025-07-05] MEDS: HYDROCORTISONE 2.5% CREAM 30 GM 1 APPLIC TOP (08:44)
[2025-07-05] MEDS: PHENYLEPH/MINERAL OIL/PETROLAT 57 GM OINT 1 APPLIC PR ×4 (08:45→21:28)
--- NOTE | 2025-07-05 09:43 | P.PN_ITS ---
Subjective Subjective Date Patient Seen: 07/05/25 Time Patient Seen: 07:53 Interval history: 85-year-old female with past medical history of multiple CVAs past on Aggrenox but did not take her dose today, hypothyroidism, depression, hypertension and known pulm nodules presents with reported right facial drooping, confusion, slurred speech and some difficulty ambulating. Per report the patient started to have these new symptoms yesterday. The patient's states that she does have intermittent confusion over the last month or so today seems to be worse than usual. Otherwise no report of any recent fever, chills, nausea, vomiting, diarrhea, chest pain or shortness of. There is no report of focal weakness as well. In the emergency room, the patient was hemodynamically stable. The patient however was requiring 4 to 5 L oxygen per nasal cannula. Lab shows a WBC of 12 hemoglobin of 10, I am seeing 133 troponin initially 0.11 but repeat was 0.10. BNP level was 7560. UA was positive for UTI. CT angio of the head and neck shows no signs of acute stroke. Patient did have atrial fibrillation with RVR. CT angio of the chest shows no PE or signs of pneumonia. Dr. Desir of cardiology recommend to start Eliquis and continue diltiazem drip. Patient mentation did improve and close to normal per the patient's hospital. Patient remains in Afib with RVR at the time of my evaluation. She is sleepy but responds to questions and denies CP, SOB, palpitations or lightheadedness. 07/04: Patient reports feeling better, though persistently weak. 07/05: No new events, persistently weak. Family notes that she receives considerable help at home for baseline for functional status requiring high needs due to history of multiple strokes. She has had progressive confusion and memory loss over the past year. Exam Narrative: Vital signs reviewed Sleepy, awakes to voice, well-nourished, ill-appearing Tachycardic, irregular rate, no murmurs Clear to auscultation in anterior and lateral lung serrano Soft, nontender, nondistended, positive bowel sounds Warm without edema Globally weak, otherwise neuro exam nonfocal Pleasant and cooperative Imaging: Echo 07/03: 1) Normal left ventricular thickness and size with mildly to moderately reduced systolic function (EF 40-45%). 2) Normal right ventricular size and function. 3) No significant valvular abnormalities. 4) Compared to the Echo done 11/02/2020, LVEF has decreased from 60-65% to 40- 45% on this study. Chest CTA 07/02: Mildly motion degraded examination. Within limiations: No pulmonary embolus. Trace bilateral pleural effusions with associated basilar atelectasis. Head/neck CTA 07/02: No significant intracranial arterial abnormality is seen. No significant abnormality is seen within the arteries of the neck. Chest xray 07/02: No acute cardiopulmonary abnormality is seen. Head CT 07/02: No acute intracranial pathology. UTI Metabolic encephalopathy due to infection Based on dipstick in the emergency room, the patient has a UTI. No evidence of sepsis. Urine culture pending. Prior urine cultures with pansensitive E coli and Klebsiella resistant to ampicillin and Bactrim. * Continue ceftriaxone * Follow-up culture results, negative to date AFib with RVR * Rate adequately controlled * Continue digoxin that was loaded on admission. * Continue metoprolol 25 mg b.i.d. Hypothyroidism * Clinically stable * Continue Synthroid Hypertension * CTM especially with initiation of metoprolol Weakness/CVA * PT OT * Possible discharge home 1-2 days on oral antibiotics with [place] lift if able to be managed at home by family/home health DVT prophylaxis: Eliquis Exam Vital Signs (past 8 hours): - 07/05/25 02:00 07/05/25 02:00 07/05/25 02:00 Temperature Pulse Rate 105 H 116 H Respiratory Rate 22 23 Blood Pressure 99/64 99/64 Pulse Oximetry 96 96 Oxygen Flow Rate 2 07/05/25 02:30 07/05/25 02:30 07/05/25 03:00 Temperature Pulse Rate 122 H 122 H Respiratory Rate 27 H 27 H Blood Pressure 111/67 Pulse Oximetry 96 94 Oxygen Flow Rate 07/05/25 03:00 07/05/25 03:30 07/05/25 03:30 Temperature Pulse Rate 113 H Respiratory Rate 22 Blood Pressure 109/67 94/54 L Pulse Oximetry 96 Oxygen Flow Rate 07/05/25 04:00 07/05/25 04:00 07/05/25 04:30 Temperature Pulse Rate 108 H Respiratory Rate 21 Blood Pressure 95/56 L 99/61 Pulse Oximetry 96 Oxygen Flow Rate 07/05/25 04:30 07/05/25 05:00 07/05/25 05:00 Temperature Pulse Rate 111 H 100 H Respiratory Rate 20 24 Blood Pressure 118/63 Pulse Oximetry 97 97 Oxygen Flow Rate 07/05/25 05:30 07/05/25 05:30 07/05/25 06:00 Temperature Pulse Rate 103 H Respiratory Rate 21 Blood Pressure 118/59 L 129/60 Pulse Oximetry 96 Oxygen Flow Rate 07/05/25 06:00 07/05/25 06:30 07/05/25 06:30 Temperature Pulse Rate 102 H 103 H Respiratory Rate 22 22 Blood Pressure 124/65 Pulse Oximetry 97 97 Oxygen Flow Rate 07/05/25 07:00 07/05/25 07:00 07/05/25 07:30 Temperature Pulse Rate 102 H Respiratory Rate 22 Blood Pressure 109/68 117/57 L Pulse Oximetry 97 Oxygen Flow Rate 07/05/25 07:30 07/05/25 08:00 07/05/25 08:00 Temperature Pulse Rate 103 H 101 H Respiratory Rate 20 22 Blood Pressure 136/66 Pulse Oximetry 97 98 Oxygen Flow Rate 07/05/25 08:30 07/05/25 08:30 07/05/25 08:34 Temperature Pulse Rate 102 H 102 H Respiratory Rate 24 Blood Pressure 130/78 130/70 Pulse Oximetry 96 Oxygen Flow Rate 07/05/25 09:00 07/05/25 09:00 07/05/25 09:00 Temperature 97.9 F Pulse Rate 112 H Respiratory Rate 24 Blood Pressure 127/80 Pulse Oximetry 98 Oxygen Flow Rate Fraction of Inspired Oxygen 36 SaO2/FiO2 Ratio 261 Oxygen Delivery Method Nasal Cannula Oxygen Flow Rate 2 Objective Labs 07/03/25 09:25 07/04/25 07:30 [facility] Medical History Incontinence of urine Incontinence Hx of cancer antigen 125 (CA-125) measurement Cancer Pulmonary nodules CVA (cerebral vascular accident) Stroke Surgical History Hx of breast biopsy History of hip replacement Family History Father Hypertension Heart disease Mother Breast cancer Social History marital status: household members: spouse lives independently: Yes occupational status: previously employed Smoking Status: Unknown if ever smoked alcohol intake: current substance use type: does not use and unknown Assessment & Plan Time-Based Coding :: [TOTAL MINUTES] spent with patient and on the chart (including review of chart, obtaining history, exam, reviewing outside data, placing orders, documenting exam and treatment plan, and counseling patient) on [DATE]. Quality VTE Deep Vein Thrombosis/Pulmonary Embolism Present on Admission: No [facility] PROFEE Direct Chill Casting Operator Document charge(s): No
[2025-07-05] MEDS: ACETAMINOPHEN 325 MG TABLET 650 MG PO ×2 (10:09→17:45)
--- NOTE | 2025-07-05 11:04 | PC.NURSE ---
0945 changed pt for incont stool; pt unable to tolerate care at rectal area due to ext. hemorrhoid; this pain was followed by meds as ordered after cleaning pt gently; pt has denied pain all am, but stated severe pain at rectum during gentle incont. care; pt did report pain and did accept RN offing for oral tylenol. will monitor for results.
--- NOTE | 2025-07-05 11:07 | PC.NURSE ---
son visited and arrived about 909; pt is interacting with him, but son does note that her speech is different and that she is not as interactive as he has known her to be.
--- NOTE | 2025-07-05 12:46 | PC.NURSE ---
family have visited and are interacting with pt while she is awake; at 1220 lunch here, for now, family wants pt to be allowed to continue napping a little longer. will follow later with meal and all care. pt appears relaxed.
[2025-07-05] MEDS: LIDOCAINE VISCOUS 2% 15 ML SOLUTION TOP (14:57)
--- NOTE | 2025-07-05 15:26 | CM.DPC ---
Addendum entered by Doris Akbar RN 07/05/25 15:50: Patient profile sent to [facility]. Original Note: CM and Dr. Bueno at bedside and discussed SNF, HH, and Hospice with spouse and three sons: Filippo, Dimitris, Aroldo. Also two [id number]. Per Dr. Bueno, patient at this time does not have any qualifying medical diagnoses for Hospice. Spouse and family are agreeable to for SNF. Senior resources provided.
--- NOTE | 2025-07-05 15:56 | PT-IP ANOTE ---
PT checked in with nursing prior to seeing pt and was told she needed pain meds due to painful hemorrhoids and possible abcess. PT checked in again in 30 at 3:55 and pt is sleepy and has not had pain meds yet, PT to work with pt tomorrow
[2025-07-05] MEDS: metroNIDAZOLE 500 MG/100 ML PIGGYBACK 100 MG IV ×2 (16:05→21:13)
[2025-07-05] MEDS: VENLAFAXINE ER 37.5 MG CAP PO (17:23)
--- NOTE | 2025-07-05 18:24 | PC.NURSE ---
[id number] during this afternoon- evening, pt has had good interaction with her family; many visitors coming by and pt has had naps, meals, many incont. changes for loose and formed stool; stopped using the pure wick after loose stools; pt has had small voids in depends; pt pain control improved with oxy. and some tylenol; pain is high level with lloyd-rectal care. pain subsides with rest and pt is able to nap; IV sites remain intact and patent; MD assessed pt for possible abscess near hemorrhoid area; antibiotics orders for Flagyl given. family teaching has been provided about Afib; infection in urine and possibly in lloyd- rectal area. pt is able to state a few things when asked. family have noted less communication and interaction recently. some slight left facial droop has been reported as a hx type baseline post TIAs over the past 20 years.- sons reported this to RN. pt HR remains about 100; aftib continues; BP stable, but slightly low normal results.
--- NOTE | 2025-07-05 19:19 | PC.NURSE ---
change of shift bedside report given; family will be leaving soon; pt's family made a decision to be outside of room for bedside report. warm compresses initated for lloyd area; night RN informed. pt quiet; appears tired; ate some, but less than other meals.
--- NOTE | 2025-07-05 19:24 | PC.NURSE ---
pt has had multiple bowel movements; some slightly formed, others are loose, dark brown in color. pt voids small amounts; will attempt pure wick again if stools are less frequent and not so loose. updated auto damage adjuster of pt's plan of care and her day.
[2025-07-06] VITALS (34 sets, daily range): BP systolic 76–135; BP diastolic 47–72; PULSE 68–106; RESP 12–39; TEMP 35.9–36.7; O2SAT 93–97
[2025-07-06] MEDS: metroNIDAZOLE 500 MG/100 ML PIGGYBACK 100 MG IV ×4 (03:02→21:07)
[2025-07-06 04:31] LABS: Hematocrit 27.6 % (36-46); Hemoglobin 9.1 g/dL (12.0-16.0); Mean Corpuscular HGB Conc 33.1 % (30-36); Mean Corpuscular Hemoglobin 30.0 PG (26-34); Mean Corpuscular Volume 90.6 fL (80-100); Platelet Count 260 X10^3/uL (150-400)
[2025-07-06] MEDS: PANTOPRAZOLE DR 20 MG TABLET PO (06:04)
[2025-07-06] MEDS: APIXABAN 5 MG TABLET PO ×2 (08:34→20:43)
[2025-07-06] MEDS: ACETAMINOPHEN 325 MG TABLET 650 MG PO ×2 (08:34→16:39)
[2025-07-06] MEDS: DIGOXIN 0.125 MG TABLET PO (08:34)
[2025-07-06] MEDS: VIBEGRON 75 MG 75 EACH PO (08:35)
[2025-07-06] MEDS: METOPROLOL IR 25 MG TABLET PO ×2 (08:35→20:43)
--- NOTE | 2025-07-06 09:53 | PC.NURSE ---
0830 pt awake; pt is taking coffee, meds and water, then coffee with RN assistance; pt has had small appetite this meal; taking bites and breaks between. No reports of pain now; pt denies SOB; RN lowere 02 to 1 L NC; will follow 02 sats. rounded about 0910; no new plans for pt care at this time; will maintain care for hemorrhoid and other issues.
[2025-07-06] MEDS: PHENYLEPH/MINERAL OIL/PETROLAT 57 GM OINT 1 APPLIC PR ×3 (11:15→20:43)
--- NOTE | 2025-07-06 12:06 | P.PN_ITS ---
Subjective Subjective Date Patient Seen: 07/06/25 Time Patient Seen: 09:01 Interval history: 85-year-old female with past medical history of multiple CVAs past on Aggrenox but did not take her dose today, hypothyroidism, depression, hypertension and known pulm nodules presents with reported right facial drooping, confusion, slurred speech and some difficulty ambulating. Per report the patient started to have these new symptoms yesterday. The patient's states that she does have intermittent confusion over the last month or so today seems to be worse than usual. Otherwise no report of any recent fever, chills, nausea, vomiting, diarrhea, chest pain or shortness of. There is no report of focal weakness as well. In the emergency room, the patient was hemodynamically stable. The patient however was requiring 4 to 5 L oxygen per nasal cannula. Lab shows a WBC of 12 hemoglobin of 10, I am seeing 133 troponin initially 0.11 but repeat was 0.10. BNP level was 7560. UA was positive for UTI. CT angio of the head and neck shows no signs of acute stroke. Patient did have atrial fibrillation with RVR. CT angio of the chest shows no PE or signs of pneumonia. Dr. Desir of cardiology recommend to start Eliquis and continue diltiazem drip. Patient mentation did improve and close to normal per the patient's hospital. Patient remains in Afib with RVR at the time of my evaluation. She is sleepy but responds to questions and denies CP, SOB, palpitations or lightheadedness. 07/04: Patient reports feeling better, though persistently weak. 07/05: No new events, persistently weak. Family notes that she receives considerable help at home for baseline for functional status requiring high needs due to history of multiple strokes. She has had progressive confusion and memory loss over the past year. 07/06: Patient is alert, appropriate, oriented to person time and place. She states her rectal area feels much better. Exam Narrative: Vital signs reviewed Sleepy, awakes to voice, well-nourished, ill-appearing Tachycardic, irregular rate, no murmurs Clear to auscultation in anterior and lateral lung serrano Soft, nontender, nondistended, positive bowel sounds Warm without edema Globally weak, otherwise neuro exam nonfocal Pleasant and cooperative Imaging: Echo 07/03: 1) Normal left ventricular thickness and size with mildly to moderately reduced systolic function (EF 40-45%). 2) Normal right ventricular size and function. 3) No significant valvular abnormalities. 4) Compared to the Echo done 11/02/2020, LVEF has decreased from 60-65% to 40- 45% on this study. Chest CTA 07/02: Mildly motion degraded examination. Within limiations: No pulmonary embolus. Trace bilateral pleural effusions with associated basilar atelectasis. Head/neck CTA 07/02: No significant intracranial arterial abnormality is seen. No significant abnormality is seen within the arteries of the neck. Chest xray 07/02: No acute cardiopulmonary abnormality is seen. Head CT 07/02: No acute intracranial pathology. UTI Metabolic encephalopathy due to infection Based on dipstick in the emergency room, the patient has a UTI. No evidence of sepsis. Urine culture pending. Prior urine cultures with pansensitive E coli and Klebsiella resistant to ampicillin and Bactrim. * Continue ceftriaxone * Follow-up culture results, negative to date Hemorrhoid versus perirectal abscess. * Continue IV metronidazole. * Warm compresses. * Hemorrhoid cream AFib with RVR * Rate adequately controlled * Continue digoxin that was loaded on admission. * Continue metoprolol 25 mg b.i.d. Hypothyroidism * Clinically stable * Continue Synthroid Hypertension * CTM especially with initiation of metoprolol Weakness/CVA * PT OT * Possible discharge home 1-2 days on oral antibiotics with Allen lift if able to be managed at home by family/home health DVT prophylaxis: Eliquis Exam Vital Signs (past 8 hours): - 07/06/25 05:00 07/06/25 05:00 07/06/25 06:00 Pulse Rate 93 H 100 H Respiratory Rate 21 22 Blood Pressure 106/60 Pulse Oximetry 95 93 Oxygen Delivery Method Oxygen Flow Rate 07/06/25 06:00 07/06/25 07:00 07/06/25 07:00 Pulse Rate 97 H Respiratory Rate 22 Blood Pressure 103/57 L 100/70 Pulse Oximetry 94 Oxygen Delivery Method Oxygen Flow Rate 07/06/25 08:00 07/06/25 08:34 07/06/25 09:00 Pulse Rate 103 H 103 H 106 H Respiratory Rate 20 20 Blood Pressure 120/70 122/70 108/58 L Pulse Oximetry 94 97 Oxygen Delivery Method Oxygen Flow Rate 1 1 07/06/25 11:39 Pulse Rate Respiratory Rate Blood Pressure Pulse Oximetry 96 Oxygen Delivery Method Nasal Cannula Oxygen Flow Rate 1 Fraction of Inspired Oxygen 36 SaO2/FiO2 Ratio 261 Oxygen Delivery Method Nasal Cannula Oxygen Flow Rate 1 Objective Labs 07/06/25 04:00 07/04/25 07:30 Labs: Laboratory Results - last 24 hr 07/06/25 04:00 WBC 7.5 RBC 3.05 L Hgb 9.1 L Hct 27.6 L MCV 90.6 MCH 30.0 MCHC 33.1 RDW 16.6 H Plt Count 260 PFSH Medical History Incontinence of urine Incontinence Hx of cancer antigen 125 (CA-125) measurement Cancer Pulmonary nodules CVA (cerebral vascular accident) Stroke Surgical History Hx of breast biopsy History of hip replacement Family History Father Hypertension Heart disease Mother Breast cancer Social History marital status: household members: spouse lives independently: Yes occupational status: previously employed Smoking Status: Unknown if ever smoked alcohol intake: current substance use type: does not use and unknown Assessment & Plan Time-Based Coding :: \ Quality VTE Deep Vein Thrombosis/Pulmonary Embolism Present on Admission: No [facility] PROFEE Community Engagement Specialist Document charge(s): No Charge Codes Subsequent inpatient/observation care: [id number]
--- NOTE | 2025-07-06 12:10 | PT.IPTN ---
Current Diagnoses Cerebral infarction, unspecified (07/02/25) Physical Therapy Treatment Note M2 PT-IP Current Condition Start: 07/04/25 14:34 Freq: NEEDED Status: Active Protocol: Document 07/04/25 14:35 KJ (Rec: 07/04/25 14:44 KJ [id number]) Physical Therapy Current Condition Current Condition Evaluation Date 07/04/25 Treatment Diagnosis Impaired mobility M3 PT-IP Subjective Start: 07/04/25 14:34 Freq: NEEDED Status: Active Protocol: Document 07/06/25 13:21 NW (Rec: 07/06/25 13:29 NW [id number]) Subjective Physical Therapy Visit Type Type Treatment Note Visit Start Time 11:30 Visit Stop Time 12:10 Notes family visiting in room (both sons and ) Number of TROUBLE LINEMAN Visits 0 Physical Therapy Visit Comments Patient Comments Pt is found resting supine with increased lethargy. Pt states she is tired. Patient Goals did not state M4 PT-IP Mobility and Gait Start: 07/04/25 14:34 Freq: NEEDED Status: Active Protocol: Document 07/06/25 13:21 NW (Rec: 07/06/25 13:29 NW [id number]) PT-Bed Mobility Assessment Rolling Type of Rolling Roll to Right,Roll to Left Level of Assist Maximal Assistance,1 Person Assistance Supine to Sit Supine to Sit Maximum Assistance,2 Person Assistance,Head of Bed Elevated Sit to Supine Sit to Supine Maximum Assistance,2 Person Assistance Scooting Scooting to Edge of Moderate Assistance Bed Scooting Up and Down Dependent in Bed PT-Transfer Assessment Comments Mobility Comments Pt requires significant encouragement to participate with functional mobility with step by step instructions to perform long sitting technique. PT-Balance Assessment Sitting Balance and Reactions Static Sitting Poor Balance Ability Dynamic Sitting Poor Balance Ability Functional Assessments Other Functional Tests Pt was able to sit edge of bed with bilateral UE Performed support for 10-12 seconds without support x 2. Fatigues quickly and requires maxA to maintain upright after. M5 PT-IP Objective Assessments Start: 07/04/25 14:34 Freq: NEEDED Status: Active Protocol: Document 07/04/25 14:35 KJ (Rec: 07/04/25 14:44 KJ [id number]) Orientation Orientation/Cognition Level of Alertness Lethargic Comments Encouragement required to keep eyes open. Gross Range of Motion Upper Extremity ROM Assessment Bilaterally Impaired Impairments shoulders Lower Extremity ROM Assessment Bilaterally Impaired Impairments ankle plantarflex contractures knees lack full ext R>L Strength Upper Extremity Strength Elbow 4/5 bilat Hand 4/5 R, 3/5 L M6 PT-IP Treatment Start: 07/04/25 14:34 Freq: NEEDED Status: Active Protocol: Document 07/06/25 13:21 NW (Rec: 07/06/25 13:29 NW [id number]) Physical Therapy Treatment Exercises Exercises Ankle Pumps,Quad Sets,Heel Slides,Straight Leg Raises, Seated Knee Flexion/Extension Other Treatments Other Treatment Education on posterior rib cage expansion with emphasis Performed on depth of breath with seated edge of bed exercises. Pt leans backwards with exercises and requires maxA to regain balance .TC and VC utilized for correction with minimal righting reactions. M7 PT-IP Assessment and Plan Start: 07/04/25 14:34 Freq: NEEDED Status: Active Protocol: Document 07/06/25 13:21 NW (Rec: 07/06/25 13:29 NW [id number]) PT Summary Assessment and Plan Potential Rehabilitation Poor Potential Status of Condition Evolving at Evaluation Summary Impairments Pain,ROM,Strength,Bed Mobility,Activity Tolerance Assessment Summary Pt requires encouragement to participate with treatment session and is maxA for bed mobility and to maintain balance at edge of bed secondary to debility. Pt at baseline over the last 6 months requires assistance with a manual sit to stand machine to assist family members with stand pivot transfer. Prior to this was ambulating short distances within the home. At this time pt is unable to return home secondary to debility and requires rehabilitation prior to return to [facility]. Goals Bed Mobility Goal Moderate Assistance Other Goals sit at edge of bed w/SBA x 1 min Frequency of Treatment Frequency Of Once a Day Treatment Treatment Plan Physical Therapy Bed Mobility Training,Therapeutic Exercise Treatment Plan Other sitting balance edge of bed with exercises Recommendations and Next Treatment Focus Recommendations To Nursing Amount of Assist Mechanical Lift Needed Discharge Recommendations PT Discharge Home with 06/02 Assist Available,SNF Rehab Recommendations Other Discharge if family can provide assistance pt will likely need a Recommendations carolina lift, if pt is unable to participate with SNF to return to baseline then senior living care facility Transportation Needs Wheelchair/Cabulance,Stretcher/Ambulance at Discharge - PT assist 2
--- NOTE | 2025-07-06 15:02 | PC.NURSE ---
this shift x2 iV sites have started to leak and required removal; pt tolerated this well; IV access placed by U/S guide per STAN Vilchis. spouse visiting pt; pt took few bites of lunch; pt does not want staff to frequently clean hemorrhoid area but accepts care for this if she is soiled; pt has asked to leave her site alone except when she is soiled; deferred hemorrhoid ointment if she is sleeping.
--- NOTE | 2025-07-06 16:21 | PC.NURSE ---
[id number] pt has had calm afternoon; has had family in and some neighbor visitors in; pt is quietly resting; does not speak much, but is alert and coherent; pt can interact well with visitors and she appears to be enjoying visits.
[2025-07-06] MEDS: VENLAFAXINE ER 37.5 MG CAP PO (17:34)
--- NOTE | 2025-07-06 18:41 | PC.NURSE ---
pt care for incontinence provided; family visiting; pt denies acute pain at this time; RN noted prior site at lloyd rectal area of concern for possible abscess has decreased in size by about 60% compared to yesterday; Flagyl antibiotic and other care orders appear to help.
[2025-07-07] VITALS (20 sets, daily range): BP systolic 93–112; BP diastolic 55–65; PULSE 72–125; RESP 14–25; TEMP 35.7–36.8; O2SAT 92–96
--- NOTE | 2025-07-07 02:19 | PC.NURSE ---
Pt not sleeping tonight. Calling out. Asked pt what she needed and she said she had to poop. Pt was cleaned recently and the stool was a small amount. Asked her if she was in pain, she stated no. Told her that I would be back later and try to sleep. When leaving, pt called out help! Went back in and pt stated, Don't leave me! Explained I couldn't stay in there the whole night, that I needed to watch the monitor. Asked her if she wanted a light on and she stated yes. Light in bathroom was left on. Will continue to check her frequently.
[2025-07-07] MEDS: metroNIDAZOLE 500 MG/100 ML PIGGYBACK 100 MG IV ×2 (02:59→08:36)
[2025-07-07] MEDS: PANTOPRAZOLE DR 20 MG TABLET PO (05:45)
[2025-07-07] MEDS: LEVOTHYROXINE 100 MCG TABLET PO (05:45)
--- NOTE | 2025-07-07 05:51 | PM.PN.1 ---
Subjective Subjective Interval history: opened in erro Exam Vital Signs (past 8 hours): - 07/06/25 22:00 07/06/25 23:00 07/07/25 00:00 Temperature 96.9 F L Pulse Rate 72 68 79 Respiratory Rate 16 13 15 Blood Pressure 101/55 L Pulse Oximetry 95 96 95 Oxygen Delivery Method Oxygen Flow Rate 07/07/25 00:00 07/07/25 00:00 07/07/25 00:00 Temperature Pulse Rate 72 Respiratory Rate 14 Blood Pressure Pulse Oximetry 94 Oxygen Delivery Method Nasal Cannula Oxygen Flow Rate 1 07/07/25 00:04 07/07/25 00:04 07/07/25 01:00 Temperature Pulse Rate 76 79 Respiratory Rate 19 14 Blood Pressure 101/55 L Pulse Oximetry 95 94 Oxygen Delivery Method Oxygen Flow Rate 07/07/25 02:00 07/07/25 03:00 07/07/25 04:00 Temperature Pulse Rate 83 94 H 92 H Respiratory Rate 14 21 17 Blood Pressure Pulse Oximetry 95 95 95 Oxygen Delivery Method Oxygen Flow Rate 07/07/25 04:06 07/07/25 04:06 07/07/25 04:06 Temperature 96.2 F L Pulse Rate 95 H Respiratory Rate 22 Blood Pressure 112/65 Pulse Oximetry 95 Oxygen Delivery Method Oxygen Flow Rate 07/07/25 05:00 Temperature Pulse Rate 98 H Respiratory Rate 21 Blood Pressure Pulse Oximetry 95 Oxygen Delivery Method Oxygen Flow Rate Fraction of Inspired Oxygen 36 SaO2/FiO2 Ratio 261 Oxygen Delivery Method Nasal Cannula Oxygen Flow Rate 1 Objective Labs 07/06/25 04:00 07/04/25 07:30 PFSH Medical History Incontinence of urine Incontinence Hx of cancer antigen 125 (CA-125) measurement Cancer Pulmonary nodules CVA (cerebral vascular accident) Stroke Surgical History Hx of breast biopsy History of hip replacement Family History Father Hypertension Heart disease Mother Breast cancer Social History marital status: household members: spouse lives independently: Yes occupational status: previously employed Smoking Status: Unknown if ever smoked alcohol intake: current substance use type: does not use and unknown Assessment & Plan Time-Based Coding :: [TOTAL MINUTES] spent with patient and on the chart (including review of chart, obtaining history, exam, reviewing outside data, placing orders, documenting exam and treatment plan, and counseling patient) on [DATE]. Quality VTE Deep Vein Thrombosis/Pulmonary Embolism Present on Admission: No
[2025-07-07] MEDS: DIGOXIN 0.125 MG TABLET PO (08:34)
[2025-07-07] MEDS: METOPROLOL IR 25 MG TABLET PO (08:34)
[2025-07-07] MEDS: APIXABAN 5 MG TABLET PO (08:34)
[2025-07-07] MEDS: VIBEGRON 75 MG 75 EACH PO (08:35)
[2025-07-07] MEDS: PHENYLEPH/MINERAL OIL/PETROLAT 57 GM OINT 1 APPLIC PR ×2 (08:36→13:52)
--- NOTE | 2025-07-07 08:47 | PC.NURSE ---
0830 DR ROBERTS AT BEDSIDE TO ASSESS PATIENT. OK TO GIVE PO METOPROLOL PER MD DESPITE 100/65 BP. . PT ALERT/ ORIENTED WATCHING TV AT THIS TIME. ABLE TO ANSWER QUESTIONS. PT REFUSING BREAKFAST. ACCEPTING SIPS OF COFFEE/ WATER. EDUCATED ON NEED FOR NUTRITION/ ORAL INTAKE.
--- NOTE | 2025-07-07 11:34 | PT.IPTN ---
Current Diagnoses Cerebral infarction, unspecified (07/02/25) Disorder of the skin and subcutaneous tissue, unspecified (07/02/25) Physical Therapy Treatment Note M2 PT-IP Current Condition Start: 07/04/25 14:34 Freq: NEEDED Status: Active Protocol: Document 07/04/25 14:35 KJ (Rec: 07/04/25 14:44 KJ [id number]) Physical Therapy Current Condition Current Condition Evaluation Date 07/04/25 Treatment Diagnosis Impaired mobility M3 PT-IP Subjective Start: 07/04/25 14:34 Freq: NEEDED Status: Active Protocol: Document 07/07/25 12:17 NW (Rec: 07/07/25 12:22 NW [id number]) Subjective Physical Therapy Visit Type Type Treatment Note Visit Start Time 11:11 Visit Stop Time 11:34 Number of NEONATAL SURGEON Visits 0 Physical Therapy Visit Comments Patient Comments Pt states her bottom hurts when laying down. Patient Goals To go home. M4 PT-IP Mobility and Gait Start: 07/04/25 14:34 Freq: NEEDED Status: Active Protocol: Document 07/07/25 12:17 NW (Rec: 07/07/25 12:22 NW [id number]) PT-Bed Mobility Assessment Rolling Type of Rolling Log Rolling,Roll to Right Level of Assist Maximal Assistance,1 Person Assistance Supine to Sit Supine to Sit Maximum Assistance PT-Transfer Assessment Comments Mobility Comments Utilized carolina lift to place patient into bed side chair to increased proprioception for sitting balance and chair exercises. PT-Balance Assessment Sitting Balance and Reactions Static Sitting Poor Balance Ability Dynamic Sitting Poor Balance Ability Comments Other Balance Tests/ pt is only able to maintain independent sitting with Deviations/Treatment bilateral UE support for < 10 seconds x 3 today sitting : in bed side chair. VC and TC given for facilitation of back extensors and lats. M5 PT-IP Objective Assessments Start: 07/04/25 14:34 Freq: NEEDED Status: Active Protocol: Document 07/04/25 14:35 KJ (Rec: 07/04/25 14:44 KJ [id number]) Orientation Orientation/Cognition Level of Alertness Lethargic Comments Encouragement required to keep eyes open. Gross Range of Motion Upper Extremity ROM Assessment Bilaterally Impaired Impairments shoulders Lower Extremity ROM Assessment Bilaterally Impaired Impairments ankle plantarflex contractures knees lack full ext R>L Strength Upper Extremity Strength Elbow 4/5 bilat Hand 4/5 R, 3/5 L M6 PT-IP Treatment Start: 07/04/25 14:34 Freq: NEEDED Status: Active Protocol: Document 07/07/25 12:17 NW (Rec: 07/07/25 12:22 NW [id number]) Physical Therapy Treatment Exercises Exercises Ankle Pumps,Gluteal Sets,Passive Knee Extension Hang, Seated Knee Flexion/Extension Other Treatments Other Treatment Performed one round of x 10 reps each with VC Performed M7 PT-IP Assessment and Plan Start: 07/04/25 14:34 Freq: NEEDED Status: Active Protocol: Document 07/07/25 12:17 NW (Rec: 07/07/25 12:22 NW [id number]) PT Summary Assessment and Plan Potential Rehabilitation Poor Potential Status of Condition Evolving at Evaluation Summary Impairments Pain,ROM,Strength,Bed Mobility,Activity Tolerance Assessment Summary Pt requires encouragement to participate with treatment session and is maxA for bed mobility and to maintain independent sitting in bed side chair. Able to intermittently sit with bilateral UE support and increased ability to pull to come to seated position. Fatigues quickly with seated chair exercises with contractures limiting available ROM. Goals Bed Mobility Goal Moderate Assistance Other Goals sit at edge of bed w/SBA x 1 min Frequency of Treatment Frequency Of Once a Day Treatment Treatment Plan Physical Therapy Bed Mobility Training,Therapeutic Exercise Treatment Plan Other sitting balance edge of bed with exercises Recommendations and Next Treatment Focus Recommendations To Nursing Amount of Assist Mechanical Lift Needed Discharge Recommendations PT Discharge Home with 06/02 Assist Available,SNF Rehab Recommendations Other Discharge if family can provide assistance pt will likely need a Recommendations carolina lift, if pt is unable to participate with SNF to return to baseline then [facility] care facility Transportation Needs Wheelchair/Cabulance,Stretcher/Ambulance at Discharge - PT assist 2
--- NOTE | 2025-07-07 13:17 | DIET.PN1 ---
Dietary Progress Note Assessment: Low PO intakes. Ensure+ started, added in shakes to disguise taste, TID. Family reports pt will d/c to [facility] soon, discussed Ensures at rehab or other more tolerated protein shake brought in for patient to have TID. Ht: 157.48 cm Wt: 58 kg BMI: 23.4 Last BM: 07/07/25 (07/07/25 06:09) MNA: 10 Garrick Score: 12 Diet: 07/03/25 Lunch Dysphagia Diet Diet Modifications: 1:1 supervision, hold if not alert, TID oral care Food Texture: Level 5 - Minced & Moist Liquid Consistency: Level 0 - Thin Heart Healthy Diet Diet Modifications: Sodium Level: 2 gm Sodium Food Texture: Level 7 - Regular Liquid Consistency: Level 0 - Thin Nutrition Percent Meal Consumed 0% 07/07/25 11:10 Percent Meal Consumed 10% taken 07/06/25 18:00 Percent Meal Consumed 10% 07/06/25 12:30 Percent Meal Consumed 50% 07/05/25 19:22 Labs: RBC 3.05 X10^6/uL (4.0-5.2) L 07/06/25 04:00 Hgb 9.1 g/dL (12.0-16.0) L 07/06/25 04:00 Hct 27.6 % (36-46) L 07/06/25 04:00 Creatinine 0.83 mg/dL (0.52-1.04) 07/04/25 07:30 Lactate 1.9 mmol/L (0.7-2.1) 07/02/25 19:08 NT-Pro-B Natriuret Pep 7560 pg/mL (<450) H 07/02/25 19:08 Electronically Signed by: Breana Rodney 07/07/25 13:17 Clinical Dietitian [address] [id number]
--- NOTE | 2025-07-07 13:30 | PM.DS.1 ---
History of Present Illness History of Present Illness Chief complaint: Weakness/slurred speach Narrative: HPI 85-year-old female with past medical history of multiple CVAs past on Aggrenox but did not take her dose today, hypothyroidism, depression, hypertension and known pulm nodules presents with reported right facial drooping, confusion, slurred speech and some difficulty ambulating. Per report the patient started to have these new symptoms yesterday. The patient's states that she does have intermittent confusion over the last month or so today seems to be worse than usual. Otherwise no report of any recent fever, chills, nausea, vomiting, diarrhea, chest pain or shortness of. There is no report of focal weakness as well. In the emergency room, the patient was hemodynamically stable. The patient however was requiring 4 to 5 L oxygen per nasal cannula. Lab shows a WBC of 12 hemoglobin of 10, I am seeing 133 troponin initially 0.11 but repeat was 0.10. BNP level was 7560. UA was positive for UTI. CT angio of the head and neck shows no signs of acute stroke. Patient did have atrial fibrillation with RVR. CT angio of the chest shows no PE or signs of pneumonia. Dr. Lara of cardiology recommend to start Eliquis and continue diltiazem drip. Patient mentation did improve and close to normal per the patient's hospital. Discharge Providers Provider Date of admission: 07/02/25 23:03 Discharge Date: 07/07/25 Primary care physician: Floresita King PA-C Consults: 07/02/25 22:55 Consult to Occupational Therapy Evaluate & Treat Comment: Physician Instructions: Evaluate and treat Consult to Physical Therapy Evaluate & Treat Comment: Physician Instructions: Evaluate and Treat 07/03/25 08:55 Consult to Speech Therapy Evaluate & Treat Comment: trouble swallowing, needs lots of coaching Physician Instructions: Evaluate and treat 07/06/25 14:58 Consult to Dietitian, Adult Routine Comment: Pt has external hemorrhoid rectal area Reason For Exam: lloyd rectal area wound concerns Consult to Wound Care Routine Comment: Consulting Provider: [facility] Discharge provider: Ange Alcocer MD Summary Hospital Course Hospital Course: Hospital course/assessment and plan UTI, ruled out Metabolic encephalopathy, unclear etiology Based on dipstick in the emergency room, there was concern that the patient had a UTI without sepsis. She was empirically started on ceftriaxone IV. Urine culture is no growth so UTI has been ruled out. Blood cultures were no growth as well. Metabolic encephalopathy has resolved. Hemorrhoid versus perirectal abscess Patient c/o rectal pain and her reported a history of hemorrhoids. He requested preparation H which was ordered. Subsequently, there was concern for lloyd-rectal abscess and the patient was started on metronidazole. Abscess has been ruled out at this time and metronidazole has been discontinued. Continue preparation H and warm compresses. AFib with RVR at presentation, now rate controlled Echo with EF 40-45%, normal RV size and function, no significant valvular abnormalities. EF is decreased compared to 2020 when it was 60-65%. Continue digoxin 0.125 mg daily and metoprolol 25 mg b.i.d. check a Digoxin level in 48 hours. Hypothyroidism Clinically stable. Continue Synthroid Hypertension, controlled Continue current med Weakness CVA, ruled out Initially, there was concern that the weakness might be due to CVA. However imaging is not consistent with CVA. PT and OT have recommended senior care facility and her family is agreeable to this. The patient is stable for discharge today to snf. Status at Discharge Cognitive/behavioral status at discharge: at baseline, oriented Functional status at discharge: bed bound Overall status at discharge: patient is back to baseline Time Spent with Patient Time spent: Greater than 30 minutes Exam Vital Signs (past 8 hours): - 07/07/25 07:00 07/07/25 07:30 07/07/25 07:44 Temperature Pulse Rate 101 H Respiratory Rate 22 Blood Pressure 93/60 Pulse Oximetry 96 Oxygen Delivery Method Nasal Cannula Oxygen Flow Rate 07/07/25 07:44 07/07/25 08:00 07/07/25 08:17 Temperature 98.3 F Pulse Rate 108 H 108 H Respiratory Rate 23 24 Blood Pressure 100/65 Pulse Oximetry 95 95 Oxygen Delivery Method Oxygen Flow Rate 0 07/07/25 08:17 07/07/25 08:34 07/07/25 09:00 Temperature Pulse Rate 122 H 125 H 119 H Respiratory Rate 21 21 Blood Pressure 100/65 Pulse Oximetry 93 95 Oxygen Delivery Method Oxygen Flow Rate 07/07/25 10:00 07/07/25 11:00 07/07/25 11:05 Temperature Pulse Rate 102 H 100 H Respiratory Rate 23 22 Blood Pressure 106/58 L Pulse Oximetry 94 92 Oxygen Delivery Method Oxygen Flow Rate 07/07/25 11:05 07/07/25 12:00 07/07/25 13:00 Temperature 98.2 F Pulse Rate 107 H 98 H 98 H Respiratory Rate 25 H 20 20 Blood Pressure Pulse Oximetry 93 95 95 Oxygen Delivery Method Oxygen Flow Rate Fraction of Inspired Oxygen 36 SaO2/FiO2 Ratio 261 Oxygen Delivery Method Nasal Cannula Oxygen Flow Rate 0 Narrative Exam Narrative: Vitals reviewed A&O to person and place, WN, WD, NAD NCAT, OP moist, neck supple Irregular rhythm, regular rate, nl S1 and S2, no murmurs CTA bilaterally Soft, NT, ND, +BS Warm without edema Neuro grossly nonfocal Pleasant, cooperative Objective ECG Impression: EKG shows atrial fibrillation without acute ST or T-wave changes. Imaging MRI - head: Radiologist's impression: MRI and CT of the head demonstrates no acute intracranial pathology. Labs 07/06/25 04:00 07/04/25 07:30 PFSH Medical History Incontinence of urine Incontinence Hx of cancer antigen 125 (CA-125) measurement Cancer Pulmonary nodules CVA (cerebral vascular accident) Stroke Surgical History Hx of breast biopsy History of hip replacement Family History Father Hypertension Heart disease Mother Breast cancer Social History marital status: household members: spouse lives independently: Yes occupational status: previously employed Smoking Status: Unknown if ever smoked alcohol intake: current substance use type: does not use and unknown Discharge Plan Discharge Plan Patient Disposition: SNF Transfer to: [facility] Discharge orders & Medications Prescriptions: New digoxin 125 mcg (0.125 mg) Tablet 0.125 mg PO DAILY Qty: 30 0RF metoprolol tartrate 25 mg Tablet 25 mg PO BID Qty: 60 0RF Eliquis 5 mg Tablet 5 mg PO BID Qty: 60 0RF Continued clotrimazole 1 % cream topical BID Droxia 200 mg capsule 200 mg PO DAILY ketoconazole 2 % cream 1 applic topical losartan 50 mg tablet 50 mg PO DAILY albuterol sulfate 90 mcg/actuation HFA aerosol inhaler 2 puff inhalation Q6H PRN (Reason: shortness of breath or wheezing) Qty: 6.7 5RF Gemtesa 75 mg tablet 75 mg PO DAILY Qty: 90 3RF levothyroxine 88 mcg tablet 1 tab PO SUTUTHSA levothyroxine 100 mcg tablet 1 tab PO MOWEFR venlafaxine 37.5 mg capsule,extended release 24hr 1 cap PO QPM omeprazole 20 mg capsule,delayed release(DR/EC) 200 mg PO DAILY Patient Comments: TAKE 1 CAPSULE BY MOUTH EVERY DAY 30 MINUTES BEFORE BREAKFAST pramoxine [Proctofoam] 1 % foam 1 applic GA TID Qty: 15 2RF lidocaine 5 % gel 1 ea topical BID PRN (Reason: pain) Qty: 10 0RF lactulose 20 gram/30 mL solution 20 g PO BID PRN (Reason: constipation) Qty: 1200 0RF hydrocortisone acetate [Anusol-HC] 25 mg suppository 25 mg GA BID Qty: 24 0RF tramadol 50 mg tablet 50 mg PO 3XD PRN (Reason: pain) Patient Comments: STATES HE GIVES HER 25MG TO 50 MG FOR PAIN Classic 28 mg iron- 800 mcg tablet PO Discontinued losartan 100 mg tablet 50 mg PO DAILY Patient Comments: TK 1 T PO QD phenazopyridine [Pyridium] 100 mg tablet 100 mg PO TID PRN (Reason: pain) Qty: 6 0RF cefdinir 300 mg capsule 300 mg PO BID Qty: 10 0RF Patient Comments: WAS TAKING FOR RECENT UTI DIAGNOSIS cefdinir 300 mg capsule 300 mg PO BID 10 Days Qty: 20 0RF metronidazole 500 mg tablet 500 mg PO TID Qty: 30 0RF Patient Comments: PRESCRIBED FOR RECENT UTI Follow up/Referrals: Floresita King PA-C [Primary Care Provider, Medical] Discharge Health Status Multidrug resistant organism: No MDRO Diet/Activity/Treatments Diet: Diet as Tolerated Liquid consistency: Normal/Thin Diet comment: 1:1 supervision, tid oral care, level 5 (minced and moist), thin liquids Activity: as tolerated Other treatments: 1) Please check digoxin level in 48 hours. Special Rehabilitation Services Rehab type: Physical therapy, Occupational therapy and Speech therapy Visit Report/Discharge Packet Stand Alone Forms: [employer], Patient Portal/API, Stroke Signs & Symptoms, Influenza Vaccine Info, Notice of Privacy Practices, Inpatient vs Outpatient, Pneumococcal Vaccine Info, Pt. Rights & Responsibilities Discharge Data Primary Care Provider: Floresita King VTE Deep Vein Thrombosis/Pulmonary Embolism Present on Admission: No
--- NOTE | 2025-07-07 13:38 | SLP.IPNOTE ---
Chart reviewed and RN consulted. RN reported pt has been declining meals, but drinking a small amount with no overt s/sx of aspiration. Pt being followed by dietitian and will be discharging today to SNF. PUBLICATION DIRECTOR attempted session, thought pt declining all intake. She did take x2 sips of thick milkshake without overt s/sx of aspiration. Discontinue PUBLICATION DIRECTOR services at this time.
--- NOTE | 2025-07-07 13:49 | PC.NURSE ---
REPORT CALLED TO STAN HERRERA AT [facility] AT 1344.
--- NOTE | 2025-07-07 15:09 | PC.NURSE ---
PATIENT PLAN TO GO TO [facility] TODAY. ALL PARTIES AWARE/ AGREEABLE WITH PLAN. HOME MEDICATIONS RETRIEVED FROM PHARMACY AND GIVEN TO SON. DISCHARGE PAPERWORK PLACED IN PACKED. SIG PAGE SIGNED BY SON AND PLACED IN CHART. ADRIANNE FROM [facility] AT BEDSIDE. PACKET GIVEN TO ADRIANNE. PT HOYERED INTO WHEELCHAIR AND TAKEN OUT BY ADRIANNE AT 1504.
--- NOTE | 2025-07-07 15:45 | PM.CN ---
History of Present Illness Consult details Date Patient Seen: 07/07/25 Time Patient Seen: 12:00 Chief complaint: Weakness/slurred speach Narrative: The patient is an 85-year-old female with a history of multiple previous CVAs who was admitted on July 03, 2025 with atrial fibrillation with RVR. She was noted to have multiple stage I pressure injuries and therefore a wound consult was placed. The patient's reports that the pressure injuries have been improving over the past couple of days. She has had progressive weakness and has had very little physical activity. She has very limited ambulation and only with assistance. The patient has had stage I pressure injuries over the past year and has been using a Roho cushion combined with frequent turning. She has not had any skin breakdown. The patient has had a decreased appetite but has not had any fever or chills. Plans are being made for transfer to rehab. The patient's is her primary caregiver at home. Meds Home Medications and Allergies Home Medications ?Medication ?Instructions ?Recorded ?Confirmed ?Type levothyroxine 100 mcg tablet 1 tab PO MOWEFR 01/10/18 07/03/25 History levothyroxine 88 mcg tablet 1 tab PO SUTUTHSA 01/10/18 07/03/25 History venlafaxine 37.5 mg 1 cap PO QPM 01/10/18 07/03/25 History capsule,extended release 24 hr omeprazole 20 mg capsule,delayed 200 mg PO DAILY 03/04/22 07/03/25 History release albuterol sulfate 90 mcg/actuation 2 puff inhalation Q6H PRN 03/01/23 07/03/25 Rx aerosol inhaler shortness of breath or wheezing #6.7 grams lidocaine 5 % topical gel 1 ea topical BID PRN pain #10 grams 04/05/24 07/03/25 Rx pramoxine 1 % topical foam 1 applic OH TID #15 grams 04/05/24 07/03/25 Rx (Proctofoam) vits no.126-ferrous fum tab PO 05/01/24 10/18/24 History 28 mg iron-folic acid 800 mcg tablet (Classic ) lactulose 20 gram/30 mL oral 20 g (30 mL) PO BID PRN 05/04/24 07/03/25 Rx solution constipation #1,200 mL vibegron 75 mg tablet (Gemtesa) 75 mg PO DAILY #90 tabs 10/09/24 07/03/25 Rx clotrimazole 1 % topical cream applic topical BID 10/18/24 10/18/24 History hydroxyurea (sickle cell) 200 mg 200 mg PO DAILY 10/18/24 07/03/25 History capsule (Droxia) ketoconazole 2 % topical cream 1 applic topical 10/18/24 10/18/24 History hydrocortisone acetate 25 mg 25 mg OH BID #24 ea 05/27/25 07/03/25 Rx rectal suppository (Anusol-HC) tramadol 50 mg tablet 50 mg PO 3XD PRN pain 07/03/25 07/03/25 History apixaban 5 mg tablet (Eliquis) 5 mg PO BID #60 tabs 07/07/25 Rx digoxin 125 mcg (0.125 mg) tablet 0.125 mg PO DAILY #30 tabs 07/07/25 Rx metoprolol tartrate 25 mg tablet 25 mg PO BID #60 tabs 07/07/25 Rx Allergies Allergy/AdvReac Type Severity Reaction Status Date / Time Penicillins (PENICILLINS) Allergy Severe LESIONS IN Verified 07/02/25 19:10 HER MOUTH ciprofloxacin (CIPROFLOXACIN) Allergy Intermediate tongue Verified 07/02/25 19:10 inflammation Review of Systems Constitutional Comments: Progressive weakness and debility Exam Vital Signs (past 8 hours): - 07/07/25 08:00 07/07/25 08:17 07/07/25 08:17 Temperature Pulse Rate 108 H 122 H Respiratory Rate 24 21 Blood Pressure 100/65 Pulse Oximetry 95 93 Oxygen Flow Rate 0 07/07/25 08:34 07/07/25 09:00 07/07/25 10:00 Temperature Pulse Rate 125 H 119 H 102 H Respiratory Rate 21 23 Blood Pressure 100/65 Pulse Oximetry 95 94 Oxygen Flow Rate 07/07/25 11:00 07/07/25 11:05 07/07/25 11:05 Temperature 98.2 F Pulse Rate 100 H 107 H Respiratory Rate 22 25 H Blood Pressure 106/58 L Pulse Oximetry 92 93 Oxygen Flow Rate 07/07/25 12:00 07/07/25 13:00 07/07/25 14:00 Temperature Pulse Rate 98 H 98 H 109 H Respiratory Rate 20 20 22 Blood Pressure Pulse Oximetry 95 95 Oxygen Flow Rate Fraction of Inspired Oxygen 36 SaO2/FiO2 Ratio 261 Oxygen Delivery Method Nasal Cannula Oxygen Flow Rate 0 Narrative Exam Narrative: Thin elderly female who is alert and oriented, no apparent distress Skin Other: Stage I pressure injuries on both buttocks and both heels, no skin breakdown or sign of infection. Objective Labs 07/06/25 04:00 07/04/25 07:30 [facility] Medical History Incontinence of urine Incontinence Hx of cancer antigen 125 (CA-125) measurement Cancer Pulmonary nodules CVA (cerebral vascular accident) Stroke Surgical History Hx of breast biopsy History of hip replacement Family History Father Hypertension Heart disease Mother Breast cancer Social History marital status: household members: spouse lives independently: Yes occupational status: previously employed Tobacco & Substance Use Smoking Status: Unknown if ever smoked alcohol intake: current substance use type: does not use and unknown Assessment & Plan Assessment and plan (1) Pressure ulcer of right buttock, stage 1: Status: Acute (2) Pressure ulcer of left buttock, stage 1: Status: Acute (3) Pressure ulcer of right heel, stage 1: Status: Acute (4) Pressure ulcer of left heel, stage 1: Status: Acute Assessment & Plan narrative: The patient has multiple stage I pressure injuries with no skin breakdown. Recommend continuing use of heel protectors and Roho cushion, continue frequent turning, protein supplementation, follow up at wound center if any skin breakdown develops. Time-Based Coding :: [TOTAL MINUTES] spent with patient and on the chart (including review of chart, obtaining history, exam, reviewing outside data, placing orders, documenting exam and treatment plan, and counseling patient) on [DATE].
--- NOTE | 2025-07-07 16:19 | CM.DPNOTE ---
DCP note BARREL HEADER reviewed EMR per provider can dc today to SNF if available. per Apryl at can skill on afib for a few days. p/u 2:45pm BARREL HEADER completed PASRR. provider signed PASRR/med list. BARREL HEADER placed in chart. BARREL HEADER updated RN/gave report number/updated TAPE MACHINE TAILER. BARREL HEADER met with son/spouse. reviewed plan. in agreement. answered questions to best of ability. son looking for buying used [place] on [employer] P: dc today to . will continue to follow as needed for DCP coordination EMMETT Timmons
== END 2025-07-07 15:04 | DRG 308 ==
LOC: ED 18:50 → AC 23:03 → ICU 07-03 00:36
PROVIDERS: Internal Medicine; Admitting Provider Internal Medicine; Emergency Provider Family Medicine; Family Provider Physician Assistant; PCP Physician Assistant; Referring Provider Family Medicine; Visit Provider Internal Medicine
DX: I48.91 Unspecified atrial fibrillation (principal); G93.41 Metabolic encephalopathy; R29.810 Facial weakness; R47.81 Slurred speech; E03.9 Hypothyroidism, unspecified; I10 Essential (primary) hypertension; K64.9 Unspecified hemorrhoids; R53.1 Weakness; R32 Unspecified urinary incontinence; F32.A Depression, unspecified; Z86.73 Personal history of transient ischemic attack (TIA), and cerebral infarction without residual deficits; Z79.890 Hormone replacement therapy
CPT/HCPCS: 36415; 70450; 70496; 70498; 71045; 71275; 80048; 80053; 80305; 81003; 81015; 82550; 82805; 82962; 83605; 83880; 84443; 84484; 85025; 85027; 85610; 85730; 87040; 87086; 87797; 92610; 93005; 93010; 93306; 94760; 96365; 96366; 96367; 96368; 96372; 96376; 97110; 97162; 97530; 99285; J0696; J1160; J2359; J7050; Q9967